=== PATIENT | female | born 1960 | race Caucasian/White ===

== ENCOUNTER 2019-06-25 10:36 | Outpatient (CLI) | payer OTHER, SELFPAY ==
--- NOTE | ~2019-06-25 | XR_ITS ---
EXAMINATION: XR shoulder RT min 2V DATE: 06/25/2019 10:57 INDICATION: Right shoulder pain. TECHNIQUE: 4 views of right shoulder were obtained. COMPARISON: None. FINDINGS: Bone alignment is normal. No fracture. There is mild osteoarthritis of glenohumeral joint a nd acromioclavicular joint characterized by tiny marginal osteophytes. IMPRESSION: 1. Mild polyarticular osteoarthritis. Reviewed, dictated and finalized at location A.
[2019-06-25 10:50] LABS: Basophils Absolute Auto 0.09 K/mm3 (0.00-0.10); Basophils Percent Auto 1.1 % (0.0-1.0); Eosinophils Absolute Auto 0.33 K/mm3 (0.02-0.50); Eosinophils Percent Auto 3.9 % (1.0-6.0); Hematocrit 43.2 % (35.0-49.0); Hemoglobin 14.2 g/dL (12.0-15.0); Immature Granulocyte Absolute 0.03 K/mm3 (0.00-0.00); Immature Granulocyte Percent A 0.4 % (0.0-0.0); Lymphocytes Absolute Auto 2.29 K/mm3 (1.10-4.50); Mean Corpuscular HGB Conc 32.9 g/dL (32.0-36.0); Mean Corpuscular Hemoglobin 30.3 pg (27.0-31.0); Mean Corpuscular Volume 92.1 fL (78.0-102.0); Mean Platelet Volume 8.8 fl (9.2-11.8); Monocytes Percent Auto 7.1 % (2.0-11.0); Neutrophils Absolute Auto 5.2 K/mm3 (1.7-7.2); Neutrophils Percent Auto 60.5 % (50.0-70.0); Platelet Count Result 339 K/mm3 (150-420); Red Blood Count 4.69 M/mm3 (4.20-5.40); Red Cell Distribution Width 13.2 % (11.6-14.4); White Blood Count 8.5 K/mm3 (4.8-10.8)
[2019-06-25 11:00] LABS: Add Urine Microscopic? NO; Appearance Urine Clear (Clear); Bilirubin Urine Negative (Negative); Blood Urine Negative (Negative); Color Urine Yellow (Yellow); Glucose Urine UA Negative (Negative); Ketones Urine Negative (Negative); Leukocyte Esterase Ur Negative (Negative); Nitrate Urine Negative (Negative); Protein Urine Negative (Negative); Urobilinogen Urine 0.2 mg/dL (0.2-1.0); pH Urine 6.5 (5.0-8.0)
[2019-06-25 11:33] LABS: Alanine Aminotransferase 39 U/L (14-59); Albumin Level 3.8 g/dL (3.4-5.0); Alkaline Phosphatase 122 U/L (46-116); Aspartate Amino Transferase 28 U/L (15-37); Bilirubin,Total 0.1 mg/dL (0.00-1.00); Blood Urea Nitrogen 22 mg/dL (7-18); Calcium 8.8 mg/dL (8.5-10.1); Carbon Dioxide 29 mmol/L (21-32); Chloride 105 mmol/L (98-108); Cholesterol 235 mg/dL (0-200); Estimated Glomerular Filt Rate > 60; Glucose 119 mg/dL (70-99); HDL Direct 59 mg/dL (40-60); LDL Cholesterol Calculated 124 mg/dL (<130); Osmolality Calculated 298 mOsm/kg (285-295); Sodium 142 mmol/L (136-145); Thyroid Stimulating Hormone 1.82 uIU/mL (0.36-3.74); Total Protein 6.9 g/dL (6.4-8.2); Triglycerides 258 mg/dL (0-150)
[2019-06-26 13:38] LABS: Hemoglobin A1C 6.3 % (<5.7)
== END 2019-06-25 10:37 | disposition home or self-care (01) ==
LOC: CHSIMG 10:40
PROVIDERS: PCP Internal Medicine; Visit Provider Internal Medicine
DX: Z00.00 Encounter for general adult medical examination without abnormal findings (principal); M25.511 Pain in right shoulder; R73.9 Hyperglycemia, unspecified
CPT/HCPCS: 36415; 73030; 80053; 80061; 81003; 83036; 84443; 85025

== ENCOUNTER 2019-11-03 20:03 | Emergency (ER) | payer OTHER, SELFPAY ==
[2019-11-03 20:25] VITALS: BP 169/90; PULSE 92; RESP 18; TEMP 37; O2SAT 97
--- NOTE | 2019-11-03 20:48 | ED_ITS ---
HPI - Skin/Abscess/Foreign Bdy General Chief complaint: Skin/Abscess/Foreign Body Stated complaint: bug bite, rash Source: patient Mode of arrival: ambulatory Limitations: no limitations History of Present Illness HPI narrative: Awoke yesterday AM with a bite on her left forearm which has been getting more red and tender. Denies itching/pain. Related Data Home Medications Medication Instructions Recorded Confirmed hydrochlorothiazide 12.5 mg PO DAILY 11/03/19 11/03/19 lisinopril 20 mg PO HS 11/03/19 11/03/19 simvastatin 10 mg PO DAILY 11/03/19 11/03/19 Allergies Allergy/AdvReac Type Severity Reaction Status Date / Time Penicillins Allergy Intermediate Verified 04/08/11 15:13 trimethobenzamide [Tigan] Allergy Intermediate Verified 04/08/11 15:14 varenicline [Chantix] Allergy Intermediate Verified 12/07/11 14:13 NSAIDS (Non-Steroidal Allergy Mild abdominal Verified 04/08/11 15:14 Anti-Inflamma pain PENICILLIN Allergy Uncoded 12/21/12 20:22 TRIMETHOBENZAMIDE HCL Allergy Uncoded 12/21/12 20:22 Review of Systems Constitutional: Constitutional: Denies chills and Denies fever(s) [facility] Past Medical History Medical History (Updated 11/05/19 @ 15:43 by Hamlet Winter MD) Hyperlipidemia Hypertension Family History Family History (Updated 03/31/14 @ 00:00 by CONVUSER A) Father Family history of type 2 diabetes mellitus Hypertension Mother Hypertension Social History Social History Smoking status: Current every day smoker Gender identity (if verbalized by the patient): Female Exam Const: General: cooperative Nutritional Appearance: average body habitus GI: Abdomen image: 1. 3 cm area of erythema and tenderness. No induration. No fluctuation. Skin: Lesions: other (see abd. diagram. No red steaking.) Course Vital Signs Vital signs: Vital Signs Temperature 37.0 C 11/03/19 20:25 Pulse Rate 92 11/03/19 20:25 Respiratory Rate 18 11/03/19 20:25 Blood Pressure 169/90 H 11/03/19 20:25 Pulse Oximetry 97 11/03/19 20:25 Temperature 36.9 C 11/03/19 20:54 Pulse Rate 88 11/03/19 20:54 Respiratory Rate 16 11/03/19 20:54 Blood Pressure 180/78 H 11/03/19 20:54 Pulse Oximetry 98 11/03/19 20:54 Discharge Plan Discharge Clinical Impression: Cellulitis Patient Disposition: Home, Self-Care Condition: Stable Instructions: Antibiotic Form, Cellulitis (ED) Additional Instructions: See Dr. Caballero in 2 days for recheck. Prescriptions: New sulfamethoxazole-trimethoprim [Bactrim DS] 800-160 mg tablet 1 tablet PO Q12H Qty: 10 RF: 0 No Action lisinopril 20 mg tablet 20 mg PO HS RF: 0 simvastatin 10 mg tablet 10 mg PO DAILY RF: 0 hydrochlorothiazide 12.5 mg tablet 12.5 mg PO DAILY RF: 0 Follow-up/Referrals: Sumit Caballero MD [Primary Care Provider] - Time of Disposition: 20:49 Discharge Date/Time: 11/03/19 20:56
[2019-11-03 20:54] VITALS: BP 180/78; PULSE 88; RESP 16; TEMP 36.9; O2SAT 98
== END 2019-11-03 20:56 | disposition home or self-care (01) ==
PROVIDERS: Emergency Provider Family Medicine; PCP Internal Medicine
DX: L03.114 Cellulitis of left upper limb (principal)
CPT/HCPCS: 99283; A9270

== ENCOUNTER 2020-02-17 09:23 | Outpatient (CLI) | payer OTHER, SELFPAY ==
[2020-02-17 10:41] LABS: SARS-CoV-2 Ag Negative (Negative)
== END 2020-02-17 09:24 | disposition home or self-care (01) ==
LOC: CHSLAB 09:24
PROVIDERS: PCP Internal Medicine; Visit Provider Internal Medicine
DX: Z20.828 Contact with and (suspected) exposure to other viral communicable diseases (principal)
CPT/HCPCS: 87426

== ENCOUNTER 2020-04-16 09:55 | Outpatient (CLI) | payer OTHER, SELFPAY ==
[2020-04-17 19:17] LABS: SARS-CoV-2 RNA PCR Negative
== END 2020-04-16 09:56 | disposition home or self-care (01) ==
LOC: CHSLAB 09:57
PROVIDERS: PCP Internal Medicine; Visit Provider Internal Medicine
DX: Z20.822 Contact with and (suspected) exposure to COVID-19 (principal)
CPT/HCPCS: C9803; U0003; U0005

== ENCOUNTER 2020-05-22 15:36 | Outpatient (CLI) | payer OTHER, SELFPAY ==
[2020-05-22 16:01] LABS: Basophils Absolute Auto 0.06 K/mm3 (0.00-0.10); Basophils Percent Auto 0.9 % (0.0-1.0); Eosinophils Absolute Auto 0.42 K/mm3 (0.02-0.50); Eosinophils Percent Auto 6.3 % (1.0-6.0); Hematocrit 43.1 % (35.0-49.0); Hemoglobin 13.8 g/dL (12.0-15.0); Immature Granulocyte Absolute 0.02 K/mm3 (0.00-0.00); Immature Granulocyte Percent A 0.3 % (0.0-0.0); Lymphocytes Percent Auto 26.8 % (18.0-42.0); Mean Corpuscular Hemoglobin 29.1 pg (27.0-31.0); Mean Corpuscular Volume 90.9 fL (78.0-102.0); Mean Platelet Volume 9.1 fl (9.2-11.8); Monocytes Absolute Auto 0.47 K/mm3 (0.10-0.90); Neutrophils Absolute Auto 3.9 K/mm3 (1.7-7.2); Neutrophils Percent Auto 58.7 % (50.0-70.0); Platelet Count Result 316 K/mm3 (150-420); Red Blood Count 4.74 M/mm3 (4.20-5.40); Red Cell Distribution Width 13.2 % (11.6-14.4); White Blood Count 6.7 K/mm3 (4.8-10.8)
[2020-05-22 16:21] LABS: Add Urine Microscopic? NO; Appearance Urine Clear (Clear); Bilirubin Urine Negative (Negative); Blood Urine Negative (Negative); Color Urine Yellow (Yellow); Glucose Urine UA Negative (Negative); Ketones Urine Negative (Negative); Leukocyte Esterase Ur Negative LEU/UL (Negative); Nitrate Urine Negative (Negative); Protein Urine Negative (Negative); Specific Grav Ur >= 1.030 (1.010-1.020); Urobilinogen Urine 0.2 mg/dL (0.2-1.0)
[2020-05-22 16:24] LABS: Prothrombin Time 10.7 Seconds (9.50-12.10)
[2020-05-22 16:29] LABS: Alanine Aminotransferase 34 U/L (14-59); Albumin Level 3.8 g/dL (3.4-5.0); Alkaline Phosphatase 126 U/L (46-116); Anion Gap 8 mmol/L (8-16); Aspartate Amino Transferase 21 U/L (15-37); Bilirubin,Total 0.3 mg/dL (0.00-1.00); Blood Urea Nitrogen 20 mg/dL (7-18); CRP 0.7 mg/dL (0.0-0.9); Calcium 8.5 mg/dL (8.5-10.1); Carbon Dioxide 29 mmol/L (21-32); Chloride 103 mmol/L (98-108); Cholesterol 223 mg/dL (0-200); Estimated Glomerular Filt Rate 57; Free T4 Free Thyroxine 0.89 ng/dL (0.76-1.46); Glucose 104 mg/dL (70-99); HDL Direct 67 mg/dL (40-60); LDL Cholesterol Calculated 123 mg/dL (<130); Osmolality Calculated 292 mOsm/kg (285-295); Potassium 4.2 mmol/L (3.5-5.1); Sodium 140 mmol/L (136-145); Thyroid Stimulating Hormone 0.73 uIU/mL (0.36-3.74); Total Protein 7.4 g/dL (6.4-8.2); Triglycerides 163 mg/dL (0-150)
[2020-05-22 16:33] LABS: Amphetamine Screen Urine Positive (Negative); Barbiturate Screen Urine Negative (Negative); Benzodiazepines Screen Urine Negative (Negative); Cannabinoid Screen Urine Negative (Negative); Cocaine Screen Urine Negative (Negative); Methadone Screen Urine Negative (Negative); Opiate Screen Urine Positive (Negative); Phencyclidine Screen Urine Negative (Negative)
[2020-05-22 16:52] LABS: Free T3 2.66 pg/mL (2.18-3.98)
[2020-05-22 16:54] LABS: HIV 1 P24 AG Negative (Negative); HIV 1/2 AB Negative (Negative)
== END 2020-05-22 15:37 | disposition home or self-care (01) ==
LOC: CHSLAB 15:39
PROVIDERS: PCP Internal Medicine; Visit Provider Internal Medicine
DX: L98.9 Disorder of the skin and subcutaneous tissue, unspecified (principal); Z20.2 Contact with and (suspected) exposure to infections with a predominantly sexual mode of transmission; T75.89XA Other specified effects of external causes, initial encounter
CPT/HCPCS: 36415; 80053; 80061; 80307; 81003; 84439; 84443; 84481; 85025; 85610; 86140; 86703; 87491; 87591

== ENCOUNTER 2020-09-08 15:35 | Outpatient (CLI) | payer OTHER, SELFPAY ==
[2020-09-08 16:51] LABS: SARS-CoV-2 RNA PCR Negative (Negative)
== END 2020-09-08 15:36 | disposition home or self-care (01) ==
LOC: CHSLAB 15:37
PROVIDERS: PCP Internal Medicine; Visit Provider Nurse Practitioner Family
DX: J06.9 Acute upper respiratory infection, unspecified (principal); Z20.822 Contact with and (suspected) exposure to COVID-19
CPT/HCPCS: C9803; U0003; U0005

== ENCOUNTER → 2020-11-19 19:28 | Emergency (ER) | payer OTHER, SELFPAY | END | disposition left against medical advice (07) | PROVIDERS: Emergency Provider Emergency Medicine; PCP Internal Medicine | DX: Z53.8 Procedure and treatment not carried out for other reasons (principal) | CPT/HCPCS: 99199 ==

== ENCOUNTER 2021-03-04 13:51 | Emergency (ER) | payer OTHER, SELFPAY ==
[2021-03-04 14:00] VITALS: BP 162/98; PULSE 93; RESP 20; TEMP 36.4; O2SAT 99
--- NOTE | 2021-03-04 14:42 | ED.GENADULT ---
HPI - General Adult General Chief complaint: Unspecified Stated complaint: groin and leg pain Source: patient Mode of arrival: ambulatory Limitations: no limitations History of Present Illness HPI narrative: this is a 61-year-old female that presents with abdominal pain right lower quadrant has been going on for the last couple of days with no fever chills no nausea vomiting no dysuria no hematuria no flank pain no radiation of her pain with no chest pain no shortness of breath. She rates the pain at about an 8/10 has not tried anything [id number] for pain relief. Onset (ago): day(s) Location: abdomen Radiation: non-radiation Severity: moderate Quality: aching Pain Consistency: constant Relieving factors: none Exacerbating factors: none Associated symptoms: denies other symptoms Related Data Home Medications Medication Instructions Recorded Confirmed hydrochlorothiazide 12.5 mg PO DAILY 11/03/19 03/04/21 lisinopril 20 mg PO HS 11/03/19 03/04/21 simvastatin 10 mg PO DAILY 11/03/19 03/04/21 Allergies Allergy/AdvReac Type Severity Reaction Status Date / Time Penicillins Allergy Intermediate Verified 04/08/11 15:13 trimethobenzamide [Tigan] Allergy Intermediate Verified 04/08/11 15:14 varenicline [Chantix] Allergy Intermediate Verified 12/07/11 14:13 NSAIDS (Non-Steroidal Allergy Mild abdominal Verified 04/08/11 15:14 Anti-Inflamma pain PENICILLIN Allergy Uncoded 12/21/12 20:22 TRIMETHOBENZAMIDE HCL Allergy Uncoded 12/21/12 20:22 Review of Systems Review of Systems: All systems reviewed & are unremarkable except as noted in HPI and below PMFSH Past Medical History Medical History Hyperlipidemia Hypertension Family History Family History Father Family history of type 2 diabetes mellitus Hypertension Mother Hypertension Social History Social History Smoking status: Current every day smoker Gender identity (if verbalized by the patient): Female Exam Const: General: cooperative, healthy appearing, comfortable, no acute distress and well developed HENMT: Head: normal to inspection Ears: hearing grossly normal bilaterally General nose exam: Normal external nose present Face and sinus: normal facial exam Mouth: Yes Normal oral and palatal mucosa present Teeth and gingiva: dentition normal Eyes: General: appearance normal, both eyes and all related structures Sclera: sclerae normal Pupils: Equal, round and reactive pupils present Neck: Neck: normal visual inspection, full ROM, no lymphadenopathy and no meningeal signs Resp: Effort & Inspection: normal respiratory effort and able to speak in complete sentences Cardio: Jugular venous distension: no JVD Palpation: normal PMI Rate: regular rate Rhythm: regular rhythm GI: Inspection: normal to inspection GI Palp: Yes abdominal tenderness Urinary Catheter: Urinary Catheter: patent and draining and urine clear Back/Spine/Pelvis: Back: no CVA tenderness Skin: General skin exam: normal color and no rashes or lesions noted Neuro: General: oriented to person, oriented to place and oriented to time Extrem: Right lower extremity: normal to inspection, full ROM and normal capillary refill Psych: Appearance: grossly normal and well kempt Course Course Emergency Course: Patient declined CT scan and would prefer to go home and follow up with her primary care physician was offered IM pain medication which she declined, and patient stated that she is not allergic to NSAIDs and will give the patient a dose of Toradol 10mg. Vital Signs Vital signs: Vital Signs Temperature 36.4 C 03/04/21 14:00 Pulse Rate 93 03/04/21 14:00 Respiratory Rate 20 03/04/21 14:00 Blood Pressure 162/98 H 03/04/21 14:00 Pulse Oximetry 99 03/04/21 14:00 Temperature 36.4 C
[2021-03-04 14:48] LABS: Add Urine Microscopic? NO; Appearance Urine Clear (Clear); Bilirubin Urine Negative (Negative); Blood Urine Negative (Negative); Color Urine Yellow (Yellow); Glucose Urine UA Negative (Negative); Ketones Urine Negative (Negative); Leukocyte Esterase Ur Negative (Negative); Nitrate Urine Negative (Negative); Protein Urine Negative (Negative); Specific Grav Ur >= 1.030 (1.010-1.020); Urobilinogen Urine 0.2 mg/dL (0.2-1.0); pH Urine 5.5 (5.0-8.0)
[2021-03-04 14:49] LABS: Basophils Absolute Auto 0.09 K/mm3 (0.00-0.10); Basophils Percent Auto 1.1 % (0.0-1.0); Eosinophils Absolute Auto 0.38 K/mm3 (0.02-0.50); Eosinophils Percent Auto 4.7 % (1.0-6.0); Hematocrit 45.8 % (35.0-49.0); Hemoglobin 15.1 g/dL (12.0-15.0); Immature Granulocyte Absolute 0.01 K/mm3 (0.00-0.00); Immature Granulocyte Percent A 0.1 % (0.0-0.0); Lymphocytes Absolute Auto 2.02 K/mm3 (1.10-4.50); Lymphocytes Percent Auto 25.2 % (18.0-42.0); Mean Corpuscular Volume 87.9 fL (78.0-102.0); Mean Platelet Volume 9.1 fl (9.2-11.8); Monocytes Absolute Auto 0.45 K/mm3 (0.10-0.90); Monocytes Percent Auto 5.6 % (2.0-11.0); Neutrophils Absolute Auto 5.1 K/mm3 (1.7-7.2); Neutrophils Percent Auto 63.3 % (50.0-70.0); Platelet Count Result 352 K/mm3 (150-420); Red Blood Count 5.21 M/mm3 (4.20-5.40); Red Cell Distribution Width 13.2 % (11.6-14.4)
[2021-03-04 15:00] LABS: Alanine Aminotransferase 44 U/L (14-59); Albumin Level 3.7 g/dL (3.4-5.0); Alkaline Phosphatase 145 U/L (46-116); Anion Gap 11 mmol/L (8-16); Aspartate Amino Transferase 28 U/L (15-37); Bilirubin,Total 0.2 mg/dL (0.00-1.00); Blood Urea Nitrogen 20 mg/dL (7-18); Carbon Dioxide 27 mmol/L (21-32); Chloride 102 mmol/L (98-108); Estimated CRCL calculation 47 ml/min; Estimated Glomerular Filt Rate 53; Glucose 110 mg/dL (70-99); Osmolality Calculated 293 mOsm/kg (285-295); Potassium 4.1 mmol/L (3.5-5.1); Sodium 140 mmol/L (136-145); Total Protein 7.5 g/dL (6.4-8.2)
[2021-03-04 15:05] LABS: Lactic Acid Reflex 0.8 mmol/L (0.4-2.0)
--- NOTE | 2021-03-04 15:12 | PC.NURSE ---
pt refused iv for ct scan, dr ambrosio in with pt. pt continues to refuse. pt signed ama
--- NOTE | 2021-03-04 15:13 | PC.NURSE ---
pt refusing iv for ct scan, dr ambrosio in with pt. pt continues to refuse, signed out ama
== END 2021-03-04 15:15 | disposition left against medical advice (07) ==
PROVIDERS: Emergency Provider Emergency Medicine; PCP Internal Medicine
DX: R10.31 Right lower quadrant pain (principal)
CPT/HCPCS: 36415; 80053; 81003; 83605; 85025; 99282; 99283

== ENCOUNTER 2021-07-30 14:35 | Outpatient (CLI) | payer OTHER, SELFPAY ==
--- NOTE | ~2021-07-30 | XR_ITS ---
XR ankle RT min 3V DATE: 07/30/2021 14:53 INDICATION: Right ankle pain and swelling after fall 3 days ago TECHNIQUE: 4 views COMPARISON: None FINDINGS: There is generalized soft tissue swelling. No fracture or dislocation of the ankle or disru ption of the ankle mortise is detected. IMPRESSION: Soft tissue swelling; no fracture or dislocation Reviewed, dictated and finalized at location B.
== END 2021-07-30 14:36 | disposition home or self-care (01) ==
LOC: CHSIMG 14:39
PROVIDERS: PCP Internal Medicine; Visit Provider Nurse Practitioner Family
DX: M25.571 Pain in right ankle and joints of right foot (principal); M25.471 Effusion, right ankle
CPT/HCPCS: 73610

== ENCOUNTER 2021-08-13 15:24 | Outpatient (CLI) | payer OTHER, SELFPAY ==
[2021-08-13 15:51] LABS: Basophils Absolute Auto 0.08 K/mm3 (0.00-0.10); Basophils Percent Auto 1.2 % (0.0-1.0); Eosinophils Percent Auto 7.5 % (1.0-6.0); Hematocrit 44.9 % (35.0-49.0); Hemoglobin 14.6 g/dL (12.0-15.0); Immature Granulocyte Absolute 0.02 K/mm3 (0.00-0.00); Immature Granulocyte Percent A 0.3 % (0.0-0.0); Lymphocytes Absolute Auto 1.77 K/mm3 (1.10-4.50); Lymphocytes Percent Auto 26.6 % (18.0-42.0); Mean Corpuscular HGB Conc 32.5 g/dL (32.0-36.0); Mean Corpuscular Hemoglobin 29.6 pg (27.0-31.0); Mean Corpuscular Volume 90.9 fL (78.0-102.0); Mean Platelet Volume 8.9 fl (9.2-11.8); Monocytes Absolute Auto 0.39 K/mm3 (0.10-0.90); Monocytes Percent Auto 5.9 % (2.0-11.0); Neutrophils Absolute Auto 3.9 K/mm3 (1.7-7.2); Neutrophils Percent Auto 58.5 % (50.0-70.0); Platelet Count Result 316 K/mm3 (150-420); Red Blood Count 4.94 M/mm3 (4.20-5.40); Red Cell Distribution Width 13.2 % (11.6-14.4); White Blood Count 6.7 K/mm3 (4.8-10.8)
[2021-08-13 16:49] LABS: Alanine Aminotransferase 36 U/L (14-59); Albumin Level 3.7 g/dL (3.4-5.0); Alkaline Phosphatase 152 U/L (46-116); Anion Gap 8 mmol/L (8-16); Aspartate Amino Transferase 26 U/L (15-37); Bilirubin,Total 0.1 mg/dL (0.00-1.00); Blood Urea Nitrogen 19 mg/dL (7-18); Calcium 8.9 mg/dL (8.5-10.1); Carbon Dioxide 27 mmol/L (21-32); Chloride 102 mmol/L (98-108); Cholesterol 233 mg/dL (0-200); Estimated Glomerular Filt Rate > 60; Free T4 Free Thyroxine 0.89 ng/dL (0.76-1.46); Glucose 108 mg/dL (70-99); HDL Direct 62 mg/dL (40-60); LDL Cholesterol Calculated 146 mg/dL (<130); Osmolality Calculated 287 mOsm/kg (285-295); Potassium 3.9 mmol/L (3.5-5.1); Sodium 137 mmol/L (136-145); Thyroid Stimulating Hormone 1.04 uIU/mL (0.36-3.74); Triglycerides 125 mg/dL (0-150)
[2021-08-13 16:53] LABS: Add Urine Microscopic? NO; Appearance Urine Clear (Clear); Bilirubin Urine Negative (Negative); Blood Urine Negative (Negative); Color Urine Light Yellow (Yellow); Glucose Urine UA Negative (Negative); Ketones Urine Negative (Negative); Leukocyte Esterase Ur Negative LEU/UL (Negative); Nitrate Urine Negative (Negative); Protein Urine Negative (Negative); Specific Grav Ur 1.025 (1.010-1.020); Urobilinogen Urine 0.2 mg/dL (0.2-1.0)
[2021-08-13 17:03] LABS: Amphetamine Screen Urine Positive (Negative); Barbiturate Screen Urine Negative (Negative); Benzodiazepines Screen Urine Negative (Negative); Cannabinoid Screen Urine Negative (Negative); Cocaine Screen Urine Negative (Negative); Methadone Screen Urine Negative (Negative); Opiate Screen Urine Positive (Negative); Phencyclidine Screen Urine Negative (Negative)
[2021-08-13 17:23] LABS: HIV 1 P24 AG Negative (Negative); HIV 1/2 AB Negative (Negative)
[2021-08-17 18:09] LABS: Hemoglobin A1C 6.2 % (<5.7)
== END 2021-08-13 15:25 | disposition home or self-care (01) ==
LOC: CHSLAB 15:26
PROVIDERS: Nurse Practitioner Family; PCP Internal Medicine; Visit Provider Nurse Practitioner Family
DX: L98.499 Non-pressure chronic ulcer of skin of other sites with unspecified severity (principal); F19.10 Other psychoactive substance abuse, uncomplicated; R73.9 Hyperglycemia, unspecified; I10 Essential (primary) hypertension; E78.5 Hyperlipidemia, unspecified; R73.03 Prediabetes; M25.571 Pain in right ankle and joints of right foot; R21 Rash and other nonspecific skin eruption
CPT/HCPCS: 36415; 80053; 80061; 80307; 81003; 83036; 84439; 84443; 85025; 86703; 87070; 87147; 87186; 87205

== ENCOUNTER 2021-09-22 18:17 | Outpatient (CLI) | payer OTHER, SELFPAY ==
--- NOTE | ~2021-09-22 | XR_ITS ---
EXAMINATION: XR skull min 4V INDICATION: Possible foreign body TECHNIQUE: Four views of the skull are obtained. COMPARISON: 12/11/2011 FINDINGS: Plate and screws are again noted in the right temporal bone. The patient is wearing and nos e ring. Otherwise, no radiopaque foreign body is identified. The paranasal sinuses appear clear. IMPRESSION: 1. Plate and screws in the right temporal bone and nose ring, otherwise no radiopaque foreign body id entified. Reviewed, dictated and finalized at location B. IMPRESSION: 1. Plate and screws in the right temporal bone and nose ring, otherwise no radi opaque foreign body identified.
== END 2021-09-22 18:18 | disposition home or self-care (01) ==
LOC: CHSIMG 18:19
PROVIDERS: PCP Internal Medicine; Visit Provider Nurse Practitioner Family
DX: M79.5 Residual foreign body in soft tissue (principal)
CPT/HCPCS: 70260

== ENCOUNTER 2022-03-06 19:37 | Emergency (ER) | payer OTHER, SELFPAY ==
--- NOTE | ~2022-03-06 | CT_ITS ---
EXAMINATION: CT cervical spine wo con DATE: 03/06/2022 20:51 INDICATION: Posterior neck pain TECHNIQUE: Computed tomography (CT) of the cervical spine was performed without intravenous contrast. Automated exposure control and iterative reconstruction technique were employed. The dose-length pro duct was 605.33 mGy-cm. COMPARISON: None FINDINGS: Alignment is normal. Vertebral body heights are normal. No fracture. Mild disc height loss at C5-C6. Cervical soft tissues are unremarkable. Moderate emphysema in the visualized portions of the bilatera l upper lobes. The following disc levels are specifically discussed: C2-C3: There is mild bilateral uncovertebral joint osteoarthritis. There is old right and severe left facet joint osteoarthritis. There is no neural foraminal stenosis. There is no central canal stenosi s. C3-C4: There is mild bilateral uncovertebral joint osteoarthritis. There is mild left and severe righ t facet joint osteoarthritis. There is mild right neural foraminal stenosis. There is no central aman l stenosis. C4-C5: There is mild bilateral uncovertebral joint osteoarthritis. There is mild left and severe righ t facet joint osteoarthritis. There is mild to moderate right neural foraminal stenosis. There is no central canal stenosis. C5-C6: There is moderate left and moderate to severe right uncovertebral joint osteoarthritis. There is mild right and severe left facet joint osteoarthritis. There is moderate left and moderate right n eural foraminal stenosis. There is no central canal stenosis. C6-C7: There is mild bilateral uncovertebral joint osteoarthritis. There is mild right and moderate l eft facet joint osteoarthritis. There is no neural foraminal stenosis. There is no central canal sten osis. C7-T1: The disc does not extend beyond the endplate margin. There is minimal bilateral uncovertebral joint osteoarthritis. There is mild right and severe left facet joint osteoarthritis. There is no pallavi ral foraminal stenosis. There is no central canal stenosis. IMPRESSION: 1. Mild cervical spondylosis. No acute osseous abnormality. 2. Moderate emphysema. Reviewed, dictated and finalized at location A. [employer]
--- NOTE | ~2022-03-06 | CT_ITS ---
EXAMINATION: CT brain wo con DATE: 03/06/2022 20:50 INDICATION: Nontraumatic headache and posterior neck pain TECHNIQUE: Computed tomography (CT) of the head was performed without intravenous contrast. Sagittal and coronal reconstructions were performed. The mA was adjusted according to patient size. Iterative reconstruction technique was employed. The dose-length product was 605.33 mGy-cm. COMPARISON: head CT dated 08/04/2004 FINDINGS: No acute intracranial hemorrhage, acute infarction or abnormal extra axial fluid collection. Ventricl es are normal and symmetric. No mass/mass effect. Mild mucosal thickening in the left maxillary sinus . The orbits, paranasal sinuses and mastoid air cells are normal. Again seen is a metallic plate over lying appears be an old bassem hole in the right parietal region. IMPRESSION: 1. Normal aging brain. No acute intracranial process. Reviewed, dictated and finalized at location A. [employer]
[2022-03-06 19:45] VITALS: BP 147/79; PULSE 95; RESP 18; TEMP 36.6; O2SAT 96
--- NOTE | 2022-03-06 20:15 | ED.NECK ---
HPI - Neck Pain/Injury General Chief Complaint: Neck Pain/Injury Stated Complaint: neck pain Time Seen by Provider: 03/06/22 20:03 Source: patient Mode of arrival: ambulatory Limitations: no limitations History of Present Illness HPI Narrative: PATIENT COMPLAINED OF RIGHT NECK PAIN THAT STARTED MONDAY MORNING WHEN SHE WOKE UP 3 DAYS AGO. ALSO ASSOCIATED WITH STIFFNESS HURTS TO MOVE HER NECK BACK AND FORTH FROM SIDE TO SIDE. DENIES ANY NEW ACTIVITY OR INJURIES. DENY NUMBNESS OR WEAKNESS FEVER OR SHORTNESS OF BREATH. HURTS WHEN SHE IS TRYING TO DRIVE OR EVEN MOVE AROUND DOING USUAL ACTIVITIES. SHE TOOK TYLENOL AND ALEVE AND THAT HELPED A LITTLE BIT. SHE SAID IT TOOK THE EDGE OFF. YESTERDAY SHE SPENT MOST THE DAY IN BED. 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 AND HAD INJECTIONS IN HER BACK. Severity scale (1-10): 10 Quality: sharp Duration: constant Relieving factors: other ( TYLENOL AND ALEVE) Exacerbating factors: movement of neck Associated symptoms: headache Treatments prior to arrival: acetaminophen and naproxen Related Data Home Medications Medication Instructions Recorded Confirmed hydrochlorothiazide 12.5 mg tablet 12.5 mg PO DAILY 11/03/19 03/06/22 lisinopril 20 mg tablet 20 mg PO HS 11/03/19 03/06/22 simvastatin 10 mg tablet 10 mg PO DAILY 11/03/19 03/06/22 Allergies Allergy/AdvReac Type Severity Reaction Status Date / Time Penicillins Allergy Intermediate Hives Verified 03/06/22 20:29 trimethobenzamide [Tigan] Allergy Intermediate Vomiting Verified 03/06/22 20:29 varenicline [Chantix] Allergy Intermediate Vomiting Verified 03/06/22 20:29 NSAIDS (Non-Steroidal Allergy Mild abdominal Verified 04/08/11 15:14 Anti-Inflamma pain PENICILLIN Allergy Hives Uncoded 03/06/22 20:29 TRIMETHOBENZAMIDE HCL Allergy Unknown Uncoded 03/06/22 20:29 Review of Systems Review of Systems: All systems reviewed & are unremarkable except as noted in HPI and below Constitutional: Constitutional: Reports as per HPI and Reports no additional constitutional complaints Eyes: Eyes: Reports no additional eye complaints ENT: Reports system reviewed and no additional complaints, except as documented and Denies sore throat Cardiovascular: Cardiovascular: Reports no additional cardiovascular complaints Respiratory: Respiratory: Reports cough ( CHRONIC SMOKER'S COUGH NO CHANGES.) and Denies dyspnea Gastrointestinal: Gastrointestinal: Reports no additional gastrointestinal complaints, Denies abdominal pain, Denies constipation, Denies diarrhea and Denies vomiting Genitourinary: Genitourinary: Reports no additional female genitourinary complaints Musculoskeletal: Musculoskeletal: Reports no additional musculoskeletal complaints Integumentary/Breasts: Skin/Breast: Reports system reviewed and no additional complaints, except as docu Neurologic: Reports system reviewed and no additional complaints, except as documented, Denies confusion, Denies syncope, Reports headache(s), Denies focal weakness, Denies numbness and Denies weakness Psychiatric: Psychiatric: Reports no additional psychiatric complaints PMFSH Past Medical History Medical History Hyperlipidemia Hypertension Family History Family History Father Family history of type 2 diabetes mellitus Hypertension Mother Hypertension Social History Social History Smoking status: Current every day smoker Gender identity (if verbalized by the patient): Female Exam Narrative: WHITE FEMALE SHE APPEARS IN NO APPARENT DISTRESS. IS NORMOCEPHALIC ATRAUMATIC EARS TMS ARE NORMAL. EYES PUPILS ARE EQUAL ROUND REACT LIGHT EXTRAOCULAR MOVEMENTS ARE INTACT OROPHARYNX IS CLEAR WITH MOIST MUCOUS MEMBRANES. NECK IS SHE HAS RIGHT SIDED POSTERIOR TENDERNESS NO MIDLI
[2022-03-06] MEDS: KETOROLAC 30 MG/ML VIAL (*BKC) IM (21:22)
== END 2022-03-06 22:29 | disposition home or self-care (01) ==
PROVIDERS: Emergency Provider Emergency Medicine; PCP Internal Medicine
DX: M47.812 Spondylosis without myelopathy or radiculopathy, cervical region (principal); E78.5 Hyperlipidemia, unspecified; I10 Essential (primary) hypertension; F17.200 Nicotine dependence, unspecified, uncomplicated
CPT/HCPCS: 70450; 72125; 96372; 99284; J1885

== ENCOUNTER 2022-06-29 12:38 | Outpatient (CLI) | payer OTHER, SELFPAY ==
--- NOTE | ~2022-06-29 | CT_ITS ---
EXAMINATION: CT thoracic lumbar wo con DATE: 06/29/2022 13:04 INDICATION: Chronic low back pain. TECHNIQUE: Computed tomography (CT) of the thoracic and lumbar spine was performed without intravenou s contrast. Automated exposure control and iterative reconstruction technique were employed. The dose -length product was 1282.66 mGy-cm. COMPARISON: Chest CT 08/23/2018 FINDINGS: CT THORACIC SPINE: There is a moderate-sized sliding hiatal hernia. There is mild emphysema. There is 4 degrees dextrocurvature of thoracic spine. There is mild chronic anterior wedging of T6, T7, T11, and T12 vertebral bodies. There is mildly decreased disc height at T5-T6 and T6-T7. There is moderate to severely decreased disc height from T7-T8 through T11-T12 with vacuum disc phenomenon. There is m ultilevel mild to moderate facet joint osteoarthritis. On the right, there is mild neural foraminal s tenosis at T10-T11. On the left, there is mild neural foraminal stenosis at T10-T11 and T11-T12. No c entral canal stenosis. CT LUMBAR SPINE: There is 3 degrees levocurvature of lumbar spine. Vertebral body heights and interve rtebral disc heights are normal. The following disc levels are specifically discussed: L1-L2: The disc does not extend beyond the endplate margin. There is mild bilateral facet joint osteo arthritis. There is no neural foraminal stenosis. There is no central canal stenosis. L2-L3: The disc is bulging. There is mild bilateral facet joint osteoarthritis. There is mild right n eural foraminal stenosis. There is no central canal stenosis. L3-L4: The disc is bulging. There is moderate right and mild left facet joint osteoarthritis. There i s mild bilateral neural foraminal stenosis. There is mild central canal stenosis. L4-L5: The disc is bulging. There is mild bilateral facet joint osteoarthritis. There is mild bilater al neural foraminal stenosis. There is mild central canal stenosis. L5-S1: The disc is bulging. There is mild bilateral facet joint osteoarthritis. There is mild bilater al neural foraminal stenosis. There is mild central canal stenosis. IMPRESSION: 1. Moderate thoracic spondylosis and mild lumbar spondylosis. Reviewed, dictated and finalized at location A.
== END 2022-06-29 12:39 | disposition home or self-care (01) ==
LOC: CHSIMG 12:42
PROVIDERS: PCP Family Medicine; Visit Provider Family Medicine
DX: M54.50 Low back pain, unspecified (principal); M43.04 Spondylolysis, thoracic region; M43.06 Spondylolysis, lumbar region
CPT/HCPCS: 72128; 72131

== ENCOUNTER 2022-07-26 21:32 | Emergency (ER) | payer OTHER, SELFPAY ==
--- NOTE | ~2022-07-26 | XR_ITS ---
AP and lateral views of the left tibia/fibula Clinical History: Pain Findings: No acute fracture or dislocation is seen. Osseous alignment is anatomic. Joint spaces are p reserved without significant erosive or degenerative change. Soft tissues are unremarkable. Impression: Unremarkable left tib-fib radiographs. Reviewed, dictated and finalized at location . Impression: Unremarkable left tib-fib radiographs.
--- NOTE | 2022-07-27 06:24 | PC.NURSE ---
See Paper Chart;
== END 2022-07-26 23:10 | disposition home or self-care (01) ==
PROVIDERS: Emergency Provider Emergency Medicine; PCP Internal Medicine
DX: L03.116 Cellulitis of left lower limb (principal); I10 Essential (primary) hypertension; F17.210 Nicotine dependence, cigarettes, uncomplicated
CPT/HCPCS: 73590; 99284; A9270

== ENCOUNTER 2022-12-03 10:52 | Emergency (ER) | payer OTHER, SELFPAY ==
--- NOTE | ~2022-12-03 | XR_ITS ---
XR chest 1V portable DATE: 12/03/2022 11:27 INDICATION: Cough for 4 weeks. Chronic mid back pain. TECHNIQUE: Portable upright AP chest on 12/03/2022 at 1127 hours COMPARISON: 02/15/2019 2 view chest FINDINGS: Borderline heart size. No hilar or mediastinal enlargement. Probable mild bibasilar chronic discoid scarring. Mild infiltrate or atelectasis is suggested in the lower lung zones. The lungs appear moderately hyperinflated. No pleural effusion or pulmonary vascular congestion or pneumothorax. IMPRESSION: Mild infiltrate or atelectasis is suggested in the lower lung zones Borderline heart size Reviewed, dictated and finalized at location A.
[2022-12-03 11:03] VITALS: BP 173/103; PULSE 98; RESP 18; TEMP 36.3; O2SAT 100
--- NOTE | 2022-12-03 11:11 | ED.URI ---
HPI - URI/Sore Throat General Chief Complaint: Upper Respiratory Infection Stated Complaint: cough Time Seen by Provider: 12/03/22 11:08 Source: patient Mode of arrival: ambulatory Limitations: no limitations History of Present Illness HPI Narrative: 62-year-old female, smoker with a history of hypertension, dyslipidemia, emphysema presents to the ER with a 4 week history of -- cough- which is nonproductive -- wheezing -- shortness of breath no fever or chills. No chest pain. No upper respiratory tract symptoms. MD elicited complaint: cough Pertinent past history: COPD Onset (ago): week(s) ( Four weeks) Consistency: constant Description of mucous: clear Able to tolerate fluids by mouth: No Exacerbating factors: nothing Relieving factors: nothing Associated symptoms: denies other symptoms, cough and shortness of breath Treatments prior to arrival: none Related Data Home Medications Medication Instructions Recorded Confirmed lisinopril 20 mg tablet 10 mg PO HS 11/03/19 12/03/22 simvastatin 10 mg tablet 10 mg PO DAILY 11/03/19 12/03/22 Allergies Allergy/AdvReac Type Severity Reaction Status Date / Time Penicillins Allergy Intermediate Hives Verified 12/03/22 12:12 trimethobenzamide [Tigan] Allergy Intermediate Vomiting Verified 12/03/22 12:12 varenicline [Chantix] Allergy Intermediate Vomiting Verified 12/03/22 12:12 NSAIDS (Non-Steroidal Allergy Mild abdominal Verified 12/03/22 12:12 Anti-Inflamma pain PENICILLIN Allergy Hives Uncoded 12/03/22 12:12 TRIMETHOBENZAMIDE HCL Allergy Unknown Uncoded 12/03/22 12:12 Review of Systems Review of Systems: All systems reviewed & are unremarkable except as noted in HPI and below Constitutional: Constitutional: Reports as per HPI and Reports no additional constitutional complaints Eyes: Eyes: Reports as per HPI and Reports no additional eye complaints ENT: Reports system reviewed and no additional complaints, except as documented and Reports as per HPI Cardiovascular: Cardiovascular: Reports as per HPI and Reports no additional cardiovascular complaints Respiratory: Respiratory: Reports as per HPI, Reports no additional respiratory complaints, Reports cough, Reports dyspnea and Reports wheezing Gastrointestinal: Gastrointestinal: Reports as per HPI and Reports no additional gastrointestinal complaints Genitourinary: Genitourinary: Reports no additional female genitourinary complaints Integumentary/Breasts: Skin/Breast: Reports system reviewed and no additional complaints, except as docu Neurologic: Reports system reviewed and no additional complaints, except as documented Psychiatric: Psychiatric: Reports no additional psychiatric complaints and Reports as per HPI Endocrine: Endocrine: Reports no additional endocrine complaints and Reports as per HPI Hematologic/Lymphatic: Hematologic/Lymphatic: Reports no additional hematologic/lymphatic complaints and Reports as per HPI Allergic/Immunologic: Allergic/Immunologic: Reports no additional allergic/immunologic complaints and Reports as per HPI PMFSH Past Medical History Medical History (Updated 12/03/22 @ 12:50 by Nestor Manley MD) Emphysema lung Hyperlipidemia Hypertension Family History Family History Father Family history of type 2 diabetes mellitus Hypertension Mother Hypertension Social History Social History Smoking status: Current every day smoker Gender identity (if verbalized by the patient): Female Exam Const: General: ill appearing Nutritional Appearance: well nourished Orientation/consciousness: patient oriented x3 Limitations: no limitations HENMT: Head: normal to inspection Ears: external ears normal Face/Nose/Sinus: Normal external nose present Face and sinus: normal facial exam Throat: posterior oropharynx normal Eyes: Conjunctivae: conjunctivae justin
[2022-12-03 11:18] VITALS: O2SAT 100
[2022-12-03] MEDS: IPRATROPIUM 0.5 MG/ALBUTEROL SULFATE 2.5 MG AMPUL.NEB 3 ML INHALATION (12:00)
[2022-12-03 12:02] VITALS: PULSE 78; RESP 18; O2SAT 100
[2022-12-03 12:15] VITALS: PULSE 76; RESP 20; O2SAT 96
[2022-12-03 12:39] LABS: Influenza Control Valid (Valid); SARS-CoV-2 Ag Positive (Negative)
--- NOTE | 2022-12-03 12:59 | PC.NURSE ---
On 12/03/22, the student, [sammie box ], provided care and completed [facility] documentation on this patient. I have reviewed the student's documentation and agree with the findings.
[2022-12-03 13:11] VITALS: BP 140/68; PULSE 82; RESP 18; TEMP 37; O2SAT 100
== END 2022-12-03 13:20 | disposition home or self-care (01) ==
PROVIDERS: Emergency Provider Internal Medicine Critical Care Medicine; PCP Internal Medicine
DX: U07.1 COVID-19 (principal); J44.1 Chronic obstructive pulmonary disease with (acute) exacerbation; I10 Essential (primary) hypertension; E78.5 Hyperlipidemia, unspecified; F17.200 Nicotine dependence, unspecified, uncomplicated; Z79.899 Other long term (current) drug therapy
CPT/HCPCS: 71045; 87426; 87804; 99283; C9803

== ENCOUNTER 2022-12-15 10:30 | Outpatient (CLI) | payer OTHER, SELFPAY ==
--- NOTE | ~2022-12-15 | CT_ITS ---
EXAMINATION:CT lung screening DATE: 12/15/2022 10:46 INDICATION: Personal history of nicotine dependence. Current smoker with 40 pack year history. TECHNIQUE: Computed tomography (CT) of the chest was performed without intravenous contrast. Automate d exposure control and iterative reconstruction technique were employed. The dose-length product (DLP ) was 92.42 mGy-cm. COMPARISON: Chest CT 08/23/2018 FINDINGS: There is moderate emphysema. There is mild scarring in paraspinal right lower lobe. There i s mild atelectasis bilaterally. Calcified left lung nodules are consistent with old granulomatous dis ease. No pleural effusion. There is a moderate-sized sliding hiatal hernia. There is left atrial enla rgement of the heart. No pericardial effusion. There are coronary artery calcifications. There are ch anges of cholecystectomy. There is severe thoracic spondylosis. There is mild chronic anterior wedgin g of T11 and T12 vertebral bodies. IMPRESSION: 1. Lung-RADS category 2: Benign appearance or behavior. Continue annual screening with noncontrast lo w-dose chest CT in 12 months. 2. Moderate-sized sliding hiatal hernia. Reviewed, dictated and finalized at location E. IMPRESSION: 1. Lung-RADS category 2: Benign appearance or behavior. Continue annual screeni ng with noncontrast low-dose chest CT in 12 months. 2. Moderate-sized sliding hiatal hernia.
== END 2022-12-15 10:31 | disposition home or self-care (01) ==
LOC: CHSIMG 10:33
PROVIDERS: PCP Internal Medicine; Visit Provider Internal Medicine
DX: Z12.2 Encounter for screening for malignant neoplasm of respiratory organs (principal); K44.9 Diaphragmatic hernia without obstruction or gangrene; R05.9 Cough, unspecified; Z87.891 Personal history of nicotine dependence
CPT/HCPCS: 71271

== ENCOUNTER 2023-04-14 17:37 | Outpatient (CLI) | payer OTHER, SELFPAY ==
--- NOTE | ~2023-04-14 | XR_ITS ---
EXAMINATION: XR nasal bones min 3V DATE: 04/14/2023 18:20 INDICATION: Nasal deformity. TECHNIQUE: 3 views of the nasal bones were obtained. COMPARISON: Head CT 03/06/2022 FINDINGS: There is rightward deviation of inferior nasal septum. No fracture. IMPRESSION: 1. No fracture. Reviewed, dictated and finalized at location E. BOUND BOX MACHINE HELPER IMPRESSION: 1. No fracture.
--- NOTE | ~2023-04-14 | XR_ITS ---
EXAMINATION: XR sinus min 3V DATE: 04/14/2023 18:20 INDICATION: Facial pain. Nose deformity. TECHNIQUE: 4 views of the paranasal sinuses were obtained. COMPARISON: Head CT 03/06/2022 FINDINGS: There is rightward deviation of inferior nasal septum. No fracture. The paranasal sinuses a re clear. There are surgical changes of the skull on the right. IMPRESSION: 1. No fracture. Reviewed, dictated and finalized at location E. R BRAKE OPERATOR IMPRESSION: 1. No fracture.
[2023-04-14 18:00] LABS: Hematocrit 40.8 % (35.0-49.0); Hemoglobin 12.5 g/dL (12.0-15.0); Mean Corpuscular HGB Conc 30.6 g/dL (32.0-36.0); Mean Corpuscular Volume 88.1 fL (78.0-102.0); Mean Platelet Volume 8.9 fl (9.2-11.8); Platelet Count Result 305 K/mm3 (150-420); Red Blood Count 4.63 M/mm3 (4.20-5.40)
[2023-04-14 18:01] LABS: Appearance Urine Clear (Clear); Bilirubin Urine Negative (Negative); Blood Urine Trace-Intact (Negative); Color Urine Yellow (Yellow); Glucose Urine UA Negative (Negative); Ketones Urine Negative (Negative); Leukocyte Esterase Ur Negative (Negative); Nitrate Urine Negative (Negative); Protein Urine Negative (Negative); Specific Grav Ur >= 1.030 (1.010-1.020); Urobilinogen Urine 0.2 mg/dL (0.2-1.0); pH Urine 5.5 (5.0-8.0)
[2023-04-14 18:06] LABS: Add Urine Microscopic? YES; Bacteria Urine None seen /hpf; RBC Urine 0-2 /hpf (0-2); Squamous Epithelial Cell Urine Rare /hpf (Few); WBC Urine 0-3 /hpf (0-3)
[2023-04-14 18:07] LABS: Amphetamine Screen Urine Positive (Negative); Barbiturate Screen Urine Negative (Negative); Benzodiazepines Screen Urine Negative (Negative); Cannabinoid Screen Urine Negative (Negative); Cocaine Screen Urine Negative (Negative); Methadone Screen Urine Negative (Negative); Opiate Screen Urine Positive (Negative); Phencyclidine Screen Urine Negative (Negative)
[2023-04-14 19:44] LABS: Alanine Aminotransferase 31 U/L (14-59); Albumin Level 3.3 g/dL (3.4-5.0); Alkaline Phosphatase 141 U/L (46-116); Anion Gap 11 mmol/L (8-16); Aspartate Amino Transferase 21 U/L (15-37); Bilirubin,Total 0.2 mg/dL (0.00-1.00); Blood Urea Nitrogen 17 mg/dL (7-18); Calcium 8.2 mg/dL (8.5-10.1); Carbon Dioxide 28 mmol/L (21-32); Chloride 105 mmol/L (98-108); Cholesterol 229 mg/dL (0-200); Estimated Glomerular Filt Rate > 60; Glucose 114 mg/dL (70-99); HDL Direct 64 mg/dL (40-60); LDL Cholesterol Calculated 133 mg/dL (<130); Osmolality Calculated 300 mOsm/kg (285-295); Potassium 4.1 mmol/L (3.5-5.1); Sodium 144 mmol/L (136-145); Thyroid Stimulating Hormone 1.11 uIU/mL (0.36-3.74); Total Protein 6.5 g/dL (6.4-8.2); Triglycerides 161 mg/dL (0-150)
[2023-04-17 09:30] LABS: Hemoglobin A1C 6.5 % (<5.7)
== END 2023-04-14 17:38 | disposition home or self-care (01) ==
LOC: CHSLAB 17:40
PROVIDERS: PCP Internal Medicine; Visit Provider Internal Medicine
DX: I10 Essential (primary) hypertension (principal); E78.5 Hyperlipidemia, unspecified; J34.89 Other specified disorders of nose and nasal sinuses; R73.09 Other abnormal glucose
CPT/HCPCS: 36415; 70160; 70220; 80053; 80061; 80307; 81001; 83036; 84443; 85027

== ENCOUNTER 2023-04-28 14:04 | Outpatient (CLI) | payer OTHER, SELFPAY ==
--- NOTE | ~2023-04-28 | CT_ITS ---
EXAMINATION: CT brain wo con DATE: 04/28/2023 14:21 INDICATION: Headache. TECHNIQUE: Computed tomography (CT) of the head was performed without intravenous contrast. The mA wa s adjusted according to patient size. Iterative reconstruction technique was employed. The dose-lengt h product was 605.33 mGy-cm. COMPARISON: Head CT 03/06/2022 FINDINGS: There is no intracranial hemorrhage, acute infarction, or abnormal intracranial mass lesion . The ventricles are normal in size. The orbits are normal. The paranasal sinuses are clear. The mast oid air cells are normal. There is an old right-sided bassem hole. IMPRESSION: 1. Normal brain. Reviewed, dictated and finalized at location E. Y FROZEN MANAGER IMPRESSION: 1. Normal brain.
== END 2023-04-28 14:05 | disposition home or self-care (01) ==
LOC: CHSIMG 14:05
PROVIDERS: PCP Internal Medicine; Visit Provider Internal Medicine
DX: R51.9 Headache, unspecified (principal)
CPT/HCPCS: 70450

== ENCOUNTER 2024-01-10 16:56 | Outpatient (CLI) | payer SELFPAY ==
[2024-01-10 17:33] LABS: Basophils Absolute Auto 0.07 K/mm3 (0.00-0.10); Basophils Percent Auto 0.6 % (0.0-1.0); Eosinophils Absolute Auto 0.35 K/mm3 (0.02-0.50); Eosinophils Percent Auto 2.8 % (1.0-6.0); Hematocrit 38.6 % (35.0-49.0); Hemoglobin 12.3 g/dL (12.0-15.0); Immature Granulocyte Absolute 0.04 K/mm3 (0.00-0.00); Immature Granulocyte Percent A 0.3 % (0.0-0.0); Lymphocytes Absolute Auto 2.12 K/mm3 (1.10-4.50); Lymphocytes Percent Auto 17.1 % (18.0-42.0); Mean Corpuscular HGB Conc 31.9 g/dL (32-36); Mean Corpuscular Hemoglobin 27.8 pg (27.0-31.0); Mean Corpuscular Volume 87.1 fL (78.0-102.0); Mean Platelet Volume 8.8 fl (9.2-11.8); Monocytes Absolute Auto 0.68 K/mm3 (0.10-0.90); Monocytes Percent Auto 5.5 % (2.0-11.0); Neutrophils Absolute Auto 9.11 K/mm3 (1.70-7.20); Neutrophils Percent Auto 73.7 % (50.0-70.0); Platelet Count Result 334 K/mm3 (150-420); Red Blood Count 4.43 M/mm3 (4.20-5.40); White Blood Count 12.4 K/mm3 (4.8-10.8)
[2024-01-10 18:51] LABS: Alanine Aminotransferase 117 U/L (14-59); Albumin Level 2.9 g/dL (3.4-5.0); Alkaline Phosphatase 190 U/L (46-116); Anion Gap 9 mmol/L (4-12); Aspartate Amino Transferase 68 U/L (15-37); Bilirubin,Total 0.3 mg/dL (0.00-1.00); Blood Urea Nitrogen 23 mg/dL (7-18); CRP 9.2 mg/dL (0.0-0.9); Calcium 8.3 mg/dL (8.5-10.1); Carbon Dioxide 28 mmol/L (21-32); Chloride 107 mmol/L (98-108); Creatine Kinase 186 U/L (26-192); Estimated Glomerular Filt Rate > 60; Glucose 111 mg/dL (70-99); Osmolality Calculated 302 mOsm/kg (285-295); Sodium 144 mmol/L (136-145); Total Protein 6.4 g/dL (6.4-8.2)
[2024-01-10 19:00] LABS: Potassium 5.5 mmol/L (3.5-5.1)
[2024-01-10 19:52] LABS: Amphetamine Screen Urine Negative (Negative); Barbiturate Screen Urine Negative (Negative); Benzodiazepines Screen Urine Negative (Negative); Cannabinoid Screen Urine Negative (Negative); Cocaine Screen Urine Negative (Negative); Methadone Screen Urine Negative (Negative); Opiate Screen Urine Positive (Negative); Phencyclidine Screen Urine Negative (Negative)
[2024-01-11 11:50] LABS: HIV 1 P24 AG Negative (Negative); HIV 1/2 AB Negative (Negative)
[2024-01-12 10:14] LABS: Hepatitis B Surface Antigen NON-REACTIVE (NON-REACTIVE)
[2024-01-12 12:04] LABS: Hepatitis A Antibody IgM NON-REACTIVE (NON-REACTIVE); Hepatitis B Core Antibody NON-REACTIVE (NON-REACTIVE); Hepatitis C Virus Antibody NON-REACTIVE (NON-REACTIVE)
== END 2024-01-10 16:57 | disposition home or self-care (01) ==
LOC: CHSLAB 16:59
PROVIDERS: PCP Internal Medicine; Visit Provider Internal Medicine
DX: I10 Essential (primary) hypertension (principal); L02.92 Furuncle, unspecified; Z79.899 Other long term (current) drug therapy; R94.5 Abnormal results of liver function studies
CPT/HCPCS: 36415; 80053; 80074; 80307; 82550; 85025; 86140; 87806

== ENCOUNTER 2024-10-01 01:31 | Emergency (ER) | payer OTHER, SELFPAY ==
[2024-10-01 01:31] VITALS: BP 209/90; PULSE 99; RESP 18; TEMP 36.8; O2SAT 95
--- OUTSIDE RECORDS SUMMARY | 2024-10-01 01:38 | XMS_ITS | Clinical Summary ---
Author Organization [facility] Address [address] [place] [address] Care Team Providers Care Product Assurance Engineer Name Role Phone No, Physician Primary Care Provider [phone] Saroj Solano MD Unavailable [phone] Allergies Active Allergy Reactions Criticality Noted Date Comments Penicillins Hives,Itching High 11/30/2018 Trimethobenzamide Itching Medium 11/30/2018 Medications No known medications Active Problems Problem Noted Date Diagnosed Date Frequent headaches 11/18/2015 Shoulder pain 07/09/2014 Overview (06/23/2016): Shoulder pain Hypercholesterolemia 05/06/2014 Overview (06/23/2016): High cholesterol Tobacco use 05/06/2014 Overview (06/23/2016): Tobacco use Hypertension 05/06/2014 Overview (06/23/2016): Hypertension Gastroesophageal reflux disease 09/13/2011 Constipation 09/13/2011 Abdominal pain 06/17/2010 Nicotine dependence 06/02/2010 Biliary calculus 06/02/2010 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 2009 .; Comments: JJC 05/06/2014 - Hx Other Medical Rotator cuff meng rg. 2014.; Comments: JJC 05/06/2014 - Hx Other Medical Brain surg. 200 0.; Comments: JJC 05/06/2014 - Cancer (HCC) Family History Medical History Relation Name Comments Diabetes Father Family history of diabetes mellitus - (Added by TW Conv) Hypertension Father Family history of hypertension - (Added by TW Conv) Kidney disease Father Family histor y of kidney disease - (Added by TW Conv) Thyroid disease Father Family histo ry of thyroid disease - (Added by TW Conv) Hypertension Mother Family history of hypertension - (Added by TW Conv) Relation Name Status Comments Father Mother Social History Tobacco Use Types Packs/Day Years Used Date Smoking Tobacco: Never Smokeless Tobacco: Never Alcohol Use Standard Drinks/Week Comments Not Currently 0 (1 standard drink = 0.6 oz pur e alcohol) Comments Unknown Sex and Gender Information Value Date Recorded Sex Assigned at Not on file Legal Sex Female 1:38 AM RETORT FIRER Gender Identity Not on file Sexual Orientation Not on file Obstetrics History Last Filed Vital Signs Vital Sign Reading Time Taken Comments Blood Pressure 181/96 05/24/2019 11:30 AM RETORT FIRER Pulse 92 05/24/2019 11:30 AM RETORT FIRER Temperature - - Respiratory Rate - - Oxygen Saturation - - Inhaled Oxygen Concentration - - Weight 78 kg (172 lb) 05/24/2019 11:30 AM RETORT FIRER Height 171.5 cm (5' 7.5) 05/24/2019 11:30 AM CS T Body Mass Index 26.54 05/24/2019 11:30 AM RETORT FIRER Plan of Treatment Not on file Insurance [facility] CHOICE PLUS Care Teams Product Assurance Engineer Relationship Specialty Start Date End Date No, Physician PCP - General 04/18/19 Saroj Solano MD Family Medicine 04/18/19
--- OUTSIDE RECORDS SUMMARY | 2024-10-01 01:38 | XMS_ITS | Referral Summary ---
Author Organization [facility] Address [address] [place] [address] Care Team Providers Care Entry Level Manager Name Role Phone No, Physician Primary Care Provider [phone] Saroj Solano MD Unavailable [phone] Allergies Active Allergy Reactions Criticality Noted Date [...] Influenza, Trivalent, Preservative Free, Intramu scular 12/18/2014 Social History Tobacco Use Types Packs/Day Years Used Date Smoking Tobacco: Never Smokeless Tobacco: Never Alcohol Use Standard Drinks/Week Comments Not Currently 0 (1 standard drink = 0.6 oz pur e alcohol) Comments Unknown Sex and Gender Information Value Date Recorded Sex Assigned at Not on file Legal Sex Female 1:38 AM DOPE MIXER Gender Identity Not on file Sexual Orientation Not on file Last Filed Vital Signs Vital Sign Reading Time Taken Comments Blood Pressure 181/96 05/24/2019 11:30 AM DOPE MIXER Pulse 92 05/24/2019 11:30 AM DOPE MIXER Temperature - - Respiratory Rate - - Oxygen Saturation - - Inhaled Oxygen Concentration - - Weight 78 kg (172 lb) 05/24/2019 11:30 AM DOPE MIXER Height 171.5 cm (5' 7.5) 05/24/2019 11:30 AM CS T Body Mass Index 26.54 05/24/2019 11:30 AM DOPE MIXER Plan of Treatment Not on file Insurance [facility] CHOICE PLUS Care Teams Entry Level Manager Relationship Specialty Start Date End Date No, Physician PCP - General 04/18/19 Saroj Solano MD Family Medicine 04/18/19
--- OUTSIDE RECORDS SUMMARY | 2024-10-01 01:38 | XMS_ITS | Clinical Summary ---
Author Organization [facility] Address [address] [place] [address] Care Team Providers Care Crystallography Teacher Name Role Phone Tommie Archuleta MD Primary Care Provider [phone] Source Comments [facility] [employer],non-owned Affiliates and Associated Physician Practices is amultiple site organization consisting of ambulatory clinics and hospital sitesin [place], [place], [place] and [place]. This disclosure is being madepursuant to the Care Everywhere program and may not contain all information available regarding this patient. 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 Gender Identity Not on file Sexual Orientation Not on file Plan of Treatment Health Maintenance Due Date Last Done Comments BONE DENSITY TESTING 1959 COLOGUARD (AGES 45-75) - COL ON CA SCREENING 1959 COLON MONITORING 1959 COLONOSCOPY - COLON CA SCREENING 1959 CT COLONOGRAPHY - COLON CA SCREENING 1959 Colorectal Cancer Screening 1959 FIT - COLON CA SCREENING 1959 FLEX SIG - COLON CA SCREENING 1959 LIPID TESTING 1959 MAMMOGRAM 1959 HIV SCREENING 1974 HEPATITIS C SCREENING 02/11/1977 DTAP/TDAP/TD VACCINES (1 - Tdap) 1978 PNEUMOCOCCAL VACCINE 50+ (1 of 1 - PCV) 2009 ZOSTER VACCINE (1 of 2) 2009 COVID-19 VACCINE (2023-2 5 season) 2023 DEPRESSION SCREENING 03/20/2024 INFLUENZA VACCINE (#1) 2024 Respiratory Syncytial Virus (RSV) Vaccine Pt: or over 60 yrs (1 - 1-dose 75+ series) 2034 HEPATITIS B VACCINE Aged Out No longe r eligible based on patient's age to complete this topic HIB VACCINE Aged Out No longer eligi ble based on patient's age to complete this topic HPV VACCINE Aged Out No longer eligi ble based on patient's age to complete this topic MENINGOCOCCAL (Group B) VACC INE SHARED DECISION-MAKING Aged Out No longer eligibl e based on patient's age to complete this topic MENINGOCOCCAL GROUPS A/C/Y/W VACCINE Aged Out No longer eligible b ased on patient's age to complete this topic Insurance [facility] Address: [facility] [address] [place] [address] Care Teams Crystallography Teacher Relationship Specialty Start Date End Date Tommie Archuleta MD [address] [place] [address] PCP - General 05/21/18
--- NOTE | 2024-10-01 02:13 | ED_ITS ---
HPI - Skin/Abscess/Foreign Bdy General Chief complaint: Skin/Abscess/Foreign Body Stated complaint: blistering Time Seen by Provider: 10/01/24 02:13 Source: patient and family Mode of arrival: ambulatory Limitations: no limitations History of Present Illness HPI narrative: 64 years old white female came from home with her daughter complaining of itching skin with a lot of sores started 4-6 months ago, was seen by her family physician started on prednisone with slight improvement then everything back to sq 1. She denies any fever, chills, nausea, vomiting, difficulty breathing or swallowing. Related Data Home Medications ?Medication ?Instructions ?Recorded ?Confirmed ?Last Taken ?Type lisinopril 20 mg tablet 10 mg PO HS 11/03/19 12/03/22 Unknown History simvastatin 10 mg tablet 10 mg PO DAILY 11/03/19 12/03/22 Unknown History Allergies Allergy/AdvReac Type Severity Reaction Status Date / Time Penicillins Allergy Intermediate Hives Verified 10/01/24 02:01 trimethobenzamide (Tigan) Allergy Intermediate Vomiting Verified 10/01/24 02:01 varenicline (Chantix) Allergy Intermediate Vomiting Verified 10/01/24 02:01 NSAIDS (Non-Steroidal Allergy Mild abdominal Verified 10/01/24 02:01 Anti-Inflamma pain PENICILLIN Allergy Hives Uncoded 12/03/22 12:12 TRIMETHOBENZAMIDE HCL Allergy Unknown Uncoded 12/03/22 12:12 Review of Systems Review of Systems: All systems reviewed & are unremarkable except as noted in HPI and below PMFSH Past Medical History Medical History Emphysema lung Hyperlipidemia Hypertension Family History Family History Father Family history of type 2 diabetes mellitus Hypertension Mother Hypertension Sibling No problems noted. Social History Social History Smoking status: Current every day smoker Gender identity (if verbalized by the patient): Female Exam Narrative: General appearance: Well-developed, well-nourished Skin: Normal color, multiple sores all over face, forearms, lower extremities anteriorly. Nothing on the back or the buttock or the back of the lower extremities. Some of the sores are infected with slight erythematous changes Head: Normocephalic, nontraumatic Eyes: Clear conjunctiva ENT: Oropharynx normal, ears normal, nose normal Neck: Supple, nontender Chest and respiratory: Airway patent, no respiratory distress, no accessory muscle use Heart: Regular rate/rhythm Abdomen: Soft, nontender, no organomegaly, quiet bowel sounds Vascular: Normal peripheral pulses, normal capillary refill. Musculoskeletal: Normal range of motion, nontender back Neurologic: Alert and oriented ?3, TAPE RECORDING MACHINE OPERATOR is normal as tested, no gross motor deficit Course Vital Signs Vital signs: Vital Signs Temperature 36.8 C 10/01/24 01:31 Pulse Rate 99 10/01/24 01:31 Respiratory Rate 18 10/01/24 01:31 Blood Pressure 209/90 H 10/01/24 01:31 Pulse Oximetry 95 10/01/24 01:31 Oxygen Delivery Room Air 10/01/24 01:31 Temperature 36.8 C 10/01/24 01:31 Pulse Rate 99 10/01/24 01:31 Respiratory Rate 18 10/01/24 01:31 Blood Pressure 209/90 H 10/01/24 01:31 Pulse Oximetry 95 10/01/24 01:31 Oxygen Delivery Room Air 10/01/24 01:31 MDM - Skin/Abscess/Foreign Bdy MDM Narrative Medical decision making narrative: Patient presents with itching and sores with and without infection. After talking to the patient and explaining that her symptom match very much with skin picking disorder. Patient's mild and agreed and report that she could not stop. my plan to discharge patient on prednisone Zyrtec and clindamycin for the itching, and infected sores. Patient was advised to follow-up with her family physician possible SSRIS prescription Differential Diagnosis Differential diagnosis: Likely other ( excoriation, obsessive-compulsive, emotional disturbance) Critical Care Time Critical Care Time Critical Care Time: No Discharge Plan Discharge Clinical Impression: Excoriation (skin-picking) disorder Patient Disposition: Home Condition: Stable Instructions: Antibiotic Form, Dermatitis (ED) Additional Instructions: Return if symptoms are worsening , call your family physician for appointment, take Tylenol, ibuprofen as as needed for aches and pain, continue home medications. . Repeated skin picking, Contact your family physician for anti stress/ depression medications Patient Language: British Prescriptions: New Zyrtec 10 mg capsule 10 mg PO BID PRN (Reason: allergy symptoms) Qty: 30 0RF prednisone 20 mg tablet 40 mg PO DAILY 5 Days Qty: 10 0RF clindamycin HCl [Cleocin HCl] 150 mg capsule 450 mg PO Q8H 10 Days Qty: 90 0RF No Action azithromycin [Zithromax] 250 mg tablet See Rx Instructions .ROUTE .COMPLEX Qty: 6 0RF Rx Instructions: For 250 mg dose pack: take 500 mg today (day 1), then 250 mg for 4 days (days 2-5) lisinopril 20 mg tablet 10 mg PO HS simvastatin 10 mg tablet 10 mg PO DAILY Follow-up/Referrals: Sumit Caballero MD [Primary Care Provider] -
--- NOTE | 2024-10-01 02:26 | PC.NURSE ---
ERP DR. SCHNEIDER AT PATIENT BEDSIDE FOR DISCHARGE DIAGNOSIS AND PRESENTATION OF DISCHARGE AT THIS TIME.
--- OUTSIDE RECORDS SUMMARY | 2024-10-01 02:26 | XMS_ITS | Clinical Summary ---
Author Organization [facility] Address [address] [place] [address] Care Team Providers Care Director Of Psychology Name Role Phone Tommie Archuleta MD Primary Care Provider [phone] Source Comments [facility] [employer],non-owned Affiliates and Associated Physician Practices is amultiple site organization consisting of ambulatory clinics and hospital sitesin [place], [place], [place] and [place]. This disclosure is being madepursuant to the Care Everywhere program and may not contain all information available regarding this patient. 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
--- OUTSIDE RECORDS SUMMARY | 2024-10-01 02:26 | XMS_ITS | Clinical Summary ---
Author Organization [facility] Address [address] [facility] [address] [place] [address] Care Team Providers Care Visual Stylist Name Role Phone No, Physician Primary Care Provider [phone] Saroj Solano MD Unavailable [phone] Allergies Active Allergy Reactions Criticality Noted Date [...] on file Legal Sex Female 1:38 AM MEDICINAL PLANT PICKER Gender Identity Not on file Sexual Orientation Not on file Obstetrics History Last Filed Vital Signs Vital Sign Reading Time Taken Comments Blood Pressure 181/96 05/24/2019 11:30 AM MEDICINAL PLANT PICKER Pulse 92 05/24/2019 11:30 AM MEDICINAL PLANT PICKER Temperature - - Respiratory Rate - - Oxygen Saturation - - Inhaled Oxygen Concentration - - Weight 78 kg (172 lb) 05/24/2019 11:30 AM MEDICINAL PLANT PICKER Height 171.5 cm (5' 7.5) 05/24/2019 11:30 AM CS T Body Mass Index 26.54 05/24/2019 11:30 AM MEDICINAL PLANT PICKER Plan of Treatment Not on file Insurance [facility] CHOICE PLUS Care Teams Visual Stylist Relationship Specialty Start Date End Date No, Physician PCP - General 04/18/19 Saroj Solano MD Family Medicine 04/18/19
--- OUTSIDE RECORDS SUMMARY | 2024-10-01 02:26 | XMS_ITS | Referral Summary ---
Author Organization [facility] Address [address] [facility] [place] [address] Care Team Providers Care Peer Financial Counselor Name Role Phone No, Physician Primary Care Provider [phone] Saroj Solano MD Unavailable [phone] Allergies Active Allergy Reactions Criticality Noted Date [...] on file Legal Sex Female 1:38 AM QUALITY ASSURANCE MONITOR CHASSIS Gender Identity Not on file Sexual Orientation Not on file Last Filed Vital Signs Vital Sign Reading Time Taken Comments Blood Pressure 181/96 05/24/2019 11:30 AM QUALITY ASSURANCE MONITOR CHASSIS Pulse 92 05/24/2019 11:30 AM QUALITY ASSURANCE MONITOR CHASSIS Temperature - - Respiratory Rate - - Oxygen Saturation - - Inhaled Oxygen Concentration - - Weight 78 kg (172 lb) 05/24/2019 11:30 AM QUALITY ASSURANCE MONITOR CHASSIS Height 171.5 cm (5' 7.5) 05/24/2019 11:30 AM CS T Body Mass Index 26.54 05/24/2019 11:30 AM QUALITY ASSURANCE MONITOR CHASSIS Plan of Treatment Not on file Insurance [facility] CHOICE PLUS Care Teams Peer Financial Counselor Relationship Specialty Start Date End Date No, Physician PCP - General 04/18/19 Saroj Solano MD Family Medicine 04/18/19
== END 2024-10-01 02:30 | disposition home or self-care (01) ==
LOC: CHSED 02:24
PROVIDERS: Emergency Provider Emergency Medicine; PCP Internal Medicine
DX: F42.4 Excoriation (skin-picking) disorder (principal); J43.9 Emphysema, unspecified; I10 Essential (primary) hypertension; E78.5 Hyperlipidemia, unspecified; F17.200 Nicotine dependence, unspecified, uncomplicated
CPT/HCPCS: 99283

== ENCOUNTER 2024-11-05 14:55 | Outpatient (CLI) | payer OTHER, SELFPAY ==
--- NOTE | 2024-11-05 15:00 | ECHO_ITS ---
Patient Info Name: Mami Taylor Age: 64 years : 1960 Gender: Female Ht: 67 in Wt: 165 lbs BSA: 1.89 m2 HR: 88 bpm BP: 151 / 66 mmHg Heart Rhythm: Sinus Rhythm Technical Quality: Fair Exam Date: 11/05/2024 3:08 PM Patient Status: unknown Admit Date: 11/05/2024 Exam Type: CA echo doppler color flow Complete two-dimensional, color flow and Doppler transthoracic echocardiogram is performed. Machine Designer: Ivonne Sawyer Attending Provider: Sumit Caballero MD Summary 1. Complete two-dimensional, color flow and Doppler transthoracic echocardiogram is performed. 2. Left ventricular chamber dimension is normal. 3. Left ventricular systolic function is hyperdynamic, estimated at >70. 4. There is mild concentric increased left ventricular wall thickness. 5. The left ventricular diastolic function is grade I diastolic dysfunction. 6. E/e' 22 is elevated. 7. Left atrial chamber dimension is severely enlarged. 8. There is mild aortic valve sclerosis. 9. The mitral valve has mildly calcified leaflets and a moderately calcified annulus. 10. There is trace tricuspid valve regurgitation. 11. Mild pulmonary hypertension, estimated pulmonary arterial systolic pressure is 41 mmHg. Left Ventricle E/e' 22 is elevated. Left ventricular chamber dimension is normal. Left ventricular systolic function is hyperdynamic, estimated at >70. There is mild concentric increased left ventricular wall thickness. The left ventricular diastolic function is grade I diastolic dysfunction. Right Ventricle Right ventricular chamber dimension is normal. Right ventricular systolic function is normal and with normal TAPSE 2.5 cm. Left Atria Left atrial chamber dimension is severely enlarged. Right Atria Right atrial chamber dimension is normal. Aortic Valve The aortic valve is trileaflet. There is mild aortic valve sclerosis. There is no aortic valve stenosis. There is no aortic valve regurgitation. Pulmonic Valve There is no pulmonic regurgitation. Mitral Valve The mitral valve has mildly calcified leaflets and a moderately calcified annulus. There is no mitral valve stenosis. There is no mitral valve regurgitation. Tricuspid Valve There is trace tricuspid valve regurgitation. Mild pulmonary hypertension, estimated pulmonary arterial systolic pressure is 41 mmHg. Pericardium/Pleural There is no pericardial effusion. Inferior Vena Cava Normal inferior vena cava with >50% collapse upon inspiration consistent with normal right atrial pressure, 5 mmHg. Aorta The aortic root size at the sinus of Valsalva is normal. Left Ventricular Outflow Tract Name Value Normal LVOT 2D LVOT Diameter 2.0 cm LVOT Doppler LVOT Peak Velocity 204 cm/s LVOT Peak Gradient 17 mmHg LVOT Mean Gradient 11 mmHg LVOT VTI 46 cm LVOT VTI/AV VTI Ratio 0.9 LVOT Stroke Volume 141 ml LVOT CO 10.7 l/min LVOT CI 5.6 l/min/m2 Pulmonic Valve Name Value Normal RVOT Doppler RVOT Peak Velocity 84 cm/s RVOT Peak Gradient 3 mmHg PV Doppler PV Peak Velocity 107 cm/s PV Peak Gradient 5 mmHg Mitral Valve Name Value Normal MV Doppler MV Peak Gradient 12 mmHg MV Mean Gradient 7 mmHg MV Area (Cont Eq VTI) 3.3 cm2 MV Diastolic Function MV E Peak Velocity 122 cm/s MV A Peak Velocity 131 cm/s MV E/A 0.9 MV Decel Time (PW) 224 ms MV Annular TDI MV E/e' (Septal) 21.4 MV E/e' (Lateral) 22.9 MV E/e' (Average) 22.2 Tricuspid Valve Name Value Normal TV Regurgitation Doppler TR Peak Velocity 301 cm/s TR Peak Gradient 36 mmHg Estimated PAP/RSVP RA Pressure 5 mmHg <=5 PA Systolic Pressure 41 mmHg <36 RV Systolic Pressure 41 mmHg <36 TV Annular TDI TV Lateral Lyubov s' Velocity 13.5 cm/s >=9.5 Aorta Name Value Normal Ascending Aorta Ao Root Diameter (MM) 3.5 cm Ao Root Diam Index (MM) 1.8 cm/m2 Aortic Valve Name Value Normal AV Doppler AV Peak Velocity 286 cm/s AV Peak Gradient 33 mmHg AV Mean Gradient 15 mmHg AV VTI 50 cm AV Area (Cont Eq VTI) 2.9 cm2 >=3.0 AV Area (Cont Eq Yaakov) 2.2 cm2 AV DI (Yaakov) 0.71 AV Regurgitation 2D LVOT Area 3.1 cm2 Ventricles Name Value Normal LV Dimensions 2D/MM IVS Diastolic Thickness (2D) 1.2 cm 0.6-1.0 LVID Diastole (2D) 4.2 cm 3.8-5.2 LVIW Diastolic Thickness (2D) 1.0 cm 0.6-0.9 LVID Systole (2D) 2.7 cm 2.2-3.5 LVOT Diameter 2.0 cm LV Mass (2D Cubed) 156.35 g 67.00-162.00 LV Mass Index (2D Cubed) 83 g/m2 43-95 Relative Wall Thickness (2D) 0.49 <=0.42 LV Fractional Shortening/Ejection Fraction 2D/MM LV Fractional Shortening (2D) 36 % 27-45 LV EF (2D Teichholz) 67 % LV Diastolic Volume (4C MOD) 89 ml LV EF (4C MOD) 73 % LV Diastolic Volume (2C MOD) 76 ml LV EF (2C MOD) 61 % LV Diastolic Volume (BP MOD) 87 ml 46-106 LV Diastolic Volume Index (BP MOD) 46 ml/m2 29-61 LV Systolic Volume (BP MOD) 29 ml 14-42 LV Systolic Volume Index (BP MOD) 15 ml/m2 8-24 LV EF (BP MOD) 66 % 54-74 LV Diastolic Length (4C) 7.9 cm LV Systolic Length (4C) 6.0 cm LV Stroke Volume (4C MOD) 65 ml Atria Name Value Normal LA Dimensions LA Dimension (MM) 4.5 cm 2.7-3.8 LA Volume (4C A-L) 87 ml LA Volume (BP A-L) 108 ml RA Dimensions RA Systolic Major [place] Length (4C) 4.6 cm 2.2-2.8 RA Area (4C) 12.3 cm2 <=18.0 Report Signatures
--- OUTSIDE RECORDS SUMMARY | 2024-11-05 15:25 | XMS_ITS | Clinical Summary ---
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 Gender Identity Not on file Sexual Orientation Not on file Obstetrics History Last Filed Vital Signs Vital Sign Reading Time Taken Comments Blood Pressure 181/96 05/24/2019 11:30 AM OFFICE MACHINE SERVICER Pulse 92 05/24/2019 11:30 AM OFFICE MACHINE SERVICER Temperature - - Respiratory Rate - - Oxygen Saturation - - Inhaled Oxygen Concentration - - Weight 78 kg (172 lb) 05/24/2019 11:30 AM OFFICE MACHINE SERVICER Height 171.5 cm (5' 7.5) 05/24/2019 11:30 AM CS T Body Mass Index 26.54 05/24/2019 11:30 AM OFFICE MACHINE SERVICER Plan of Treatment Not on file Insurance [employer] Care Teams Bonding Agent Relationship Specialty Start Date End Date No, Physician PCP - General 04/18/19 Saroj Solano MD Family Medicine 04/18/19
--- OUTSIDE RECORDS SUMMARY | 2024-11-05 15:25 | XMS_ITS | Clinical Summary ---
Author Organization [facility] Address [address] [place] [address] Care Team Providers Care Mechanical Inspector Name Role Phone Tommie Archuleta MD Primary Care Provider [phone] Source Comments [facility] [employer],non-owned Affiliates and Associated Physician Practices is amultiple site organization consisting of ambulatory clinics and hospital sitesin [place], [place], [place] and [place]. This disclosure is being madepursuant to the Care Everywhere program and may not contain all information available regarding this patient. 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
== END 2024-11-05 14:56 | disposition home or self-care (01) ==
LOC: CHSIMG 14:57
PROVIDERS: PCP Internal Medicine; Visit Provider Internal Medicine
DX: R06.02 Shortness of breath (principal); R01.1 Cardiac murmur, unspecified; I27.20 Pulmonary hypertension, unspecified; I35.8 Other nonrheumatic aortic valve disorders; I51.7 Cardiomegaly
CPT/HCPCS: 93306

== ENCOUNTER 2024-12-26 19:10 | Emergency (ER) | payer OTHER, SELFPAY ==
[2024-12-26] VITALS (11 sets, daily range): BP systolic 116–150; BP diastolic 48–71; PULSE 95–108; RESP 16–24; TEMP 36.1; O2SAT 95–100
--- NOTE | ~2024-12-26 | CT_ITS ---
EXAMINATION: CT abdomen pelvis wo con DATE: 12/26/2024 19:54 INDICATION: Abdominal pain TECHNIQUE: Computed tomography (CT) of the abdomen and pelvis was performed without intravenous contrast. Automated exposure control and iterative reconstruction technique were employed. The dose-length product was 495.71 mGy-cm. COMPARISON: None FINDINGS: Mild emphysema and mild dependent atelectasis in the visualized lower lungs. Additional atelectasis at the anterobasilar right middle lobe and lingula. Borderline heart size. Catheter scar coronary artery calcifications and aortic valve calcific location. No pericardial or pleural effusion. Moderate-sized sliding-type hiatal hernia. Cholecystectomy clips at gallbladder fossa. Liver, spleen, pancreas, bilateral adrenal glands and kidneys are normal. Decompressed bladder is unremarkable. The uterus is not identified and has likely been surgically resected. There is mild colonic wall thickening with inflammatory stranding centered at the splenic flexure the colon consistent with colitis. This liquid stool in the proximal colon consistent with nonspecific diarrhea. The appendix is not visualized. No pericecal inflammatory change to suggest acute appendicitis. Small bowel is normal with no obstruction. No free intraperitoneal gas or fluid. No pathologically enlarged abdominal or pelvic lymphadenopathy. There is calcified atherosclerosis of the aorta and many of the other arteries. Fusiform ectasia along the infrarenal aorta measuring up to 2.9 cm in maximal diameter. Severe lower thoracic and mild to moderate lumbar spondylosis. Chronic-appearing T11 compression fracture with 20% anterior vertebral body height loss. IMPRESSION: 1. Colonic wall thickening and inflammatory stranding centered at the splenic flexure the colon consistent with colitis which could be infectious, inflammatory or ischemic in etiology, the latter potentially in the setting of hypotension given the location at the vascular watershed zone of the colon. 2. Moderate-sized sliding-type hiatal hernia. Reviewed, dictated and finalized at location A. IMPRESSION: 1. Colonic wall thickening and inflammatory stranding centered at the splenic f lexure the colon consistent with colitis which could be infectious, inflammator y or ischemic in etiology, the latter potentially in the setting of hypotension given the location at the vascular watershed zone of the colon. 2. Moderate-sized sliding-type hiatal hernia.
--- NOTE | 2024-12-26 19:27 | ECG_ITS ---
Test Date: 2024-12-26 20:33:10 Measurements Intervals [place] Rate: 96 P: 48 GA: 153 QRS: -14 QRSD: 88 T: 100 QT: 337 QTc: 427 Interpretive Statements SINUS RHYTHM POSSIBLE LEFT ATRIAL ENLARGEMENT INCOMPLETE RIGHT BUNDLE BRANCH BLOCK LEFT VENTRICULAR HYPERTROPHY AND ST-T CHANGE MINIMAL Q WAVES- HIGH LATERAL LEADS BORDERLINE ST-T WAVE ABNORMALITY- ANTEROLAT/INF LEADS BORDERLINE ECG No previous ECG available for comparison Electronically Signed On 12-27-2024 06:16:56 CDT by Og Tavarez D.O.
[2024-12-26] MEDS: MORPHINE SULFATE (*CRX) 4 MG/ML INJ IV PUSH (19:40)
[2024-12-26] MEDS: ONDANSETRON INJ 4 MG/2 ML VIAL IV PUSH (19:40)
[2024-12-26] MEDS: SODIUM CHLORIDE 0.9% IV 1,000 ML 999 ML IV CONT (19:41)
--- NOTE | 2024-12-26 19:43 | PC.NURSE ---
TRANSPORTED TO CT VIA STRETCHER
--- NOTE | 2024-12-26 20:05 | PC.NURSE ---
LAB AT THE BEDSIDE. NS INFUSING TO RIGHT AC WITHOUT DIFFICULTY.
--- NOTE | 2024-12-26 20:18 | PC.NURSE ---
URINE TAKEN DOWN TO LAB
[2024-12-26 20:22] LABS: Hematocrit 28.0 % (35.0-42.0); Hemoglobin 7.1 g/dL (11.7-13.8); Immature Granulocyte Percent A 0.4 % (0.0-0.0); Lymphocytes Absolute Auto 0.46 K/mm3 (1.10-4.50); Mean Corpuscular HGB Conc 25.4 g/dL (32-36); Mean Corpuscular Hemoglobin 15.5 pg (27.0-31.0); Mean Corpuscular Volume 61.1 fL (78.0-102.0); Nucleated Red Blood Cells Absolute Auto 0.08 K/mm3 (0.00-0.00); Nucleated Red Blood Cells Perc 0.5 % (0-0.0); Platelet Count Result 473 K/mm3 (150-420); Red Blood Count 4.58 M/mm3 (4.20-5.40); White Blood Count 16.1 K/mm3 (4.8-10.8)
[2024-12-26 20:27] LABS: Alanine Aminotransferase 20 U/L (6-35); Albumin Level 4.3 g/dL (3.5-5.1); Alkaline Phosphatase 218 U/L (38-126); Anion Gap 14 mmol/L (4-12); Aspartate Amino Transferase 41 U/L (14-36); Bilirubin,Total 0.4 mg/dL (0.2-1.3); Blood Urea Nitrogen 54 mg/dL (7-17); Calcium 9.1 mg/dL (8.4-10.2); Carbon Dioxide 21 mmol/L (22-30); Chloride 105 mmol/L (98-107); Estimated CRCL calculation 19 ml/min; Estimated Glomerular Filt Rate 18; Glucose 136 mg/dL (65-110); Lipase 153 U/L (23-300); Osmolality Calculated 306 mOsm/kg (285-295); Potassium 4.5 mmol/L (3.4-5.0); Sodium 140 mmol/L (137-145); Total Protein 8.1 g/dL (6.3-8.2)
[2024-12-26 20:30] LABS: INR 1.0; Partial Thromboplastin Time 24.2 Sec (23.9-30.70); Prothrombin Time 10.6 Seconds (9.50-12.1)
[2024-12-26 20:37] LABS: Add Urine Microscopic? YES; Appearance Urine Clear (Clear); Glucose Urine UA Negative (Negative); Leukocyte Esterase Ur Negative LEU/UL (Negative); Nitrate Urine Negative (Negative); Specific Grav Ur 1.025 (1.010-1.020)
[2024-12-26 20:40] LABS: Troponin I 0.061 ng/mL (0.000-0.034)
--- NOTE | 2024-12-26 20:46 | PC.NURSE ---
CRITICAL LAB VALUE FOR TROPONIN RECEIVED. PLACED ON PERIOPERATIVE ASSISTANT. PATIENT REPORTS THAT HE PAIN IS NOT BETTER. REQUESTING MORE PAIN MEDICATION. DR PAT NOTIFIED
[2024-12-26] MEDS: HYDROmorphone HCL INJ (*CRX) 2 MG/ML VIAL 1 MG IV PUSH (20:48)
[2024-12-26] MEDS: levoFLOXacin 500 MG/D5W 100 ML 500 MG/100 ML BAG 100 MG IVPB (21:17)
--- NOTE | 2024-12-26 21:45 | ED.ABDPAIN ---
HPI - Abdominal Pain General Chief Complaint: Abdominal Pain Stated Complaint: side pain Time Seen by Provider: 12/26/24 19:27 Source: patient and family Mode of arrival: ambulatory Limitations: no limitations History of Present Illness HPI narrative: this is a 64-year-old female with history of COPD, hypertension, hyperlipidemia with severe abdominal pain rates it a 10/10 diffuse in location with no dysuria no nausea vomiting no chest pain or shortness of breath no diarrhea does have patient states constipation. No recent alcohol use no antibiotic use. Patient's abdominal pain started approximately couple of days of go but has worsened over the last few hours and presents to the emergency department. She has no nausea or vomiting no fever chills. MD elicited complaint: abdominal pain Pertinent past history: constipation Onset (ago): day(s) Pain Consistency: constant Location: diffuse Severity: severe Pain scale (0-10): 10 Quality: aching and sharp Related Data Home Medications ?Medication ?Instructions ?Recorded ?Confirmed ?Last Taken ?Type lisinopril 20 mg tablet 10 mg PO HS 11/03/19 12/03/22 Unknown History simvastatin 10 mg tablet 10 mg PO DAILY 11/03/19 12/03/22 Unknown History Allergies Allergy/AdvReac Type Severity Reaction Status Date / Time Penicillins Allergy Intermediate Hives Verified 12/26/24 19:43 trimethobenzamide (Tigan) Allergy Intermediate Vomiting Verified 12/26/24 19:43 varenicline (Chantix) Allergy Intermediate Vomiting Verified 12/26/24 19:43 NSAIDS (Non-Steroidal Allergy Mild abdominal Verified 12/26/24 19:43 Anti-Inflamma pain PENICILLIN Allergy Hives Uncoded 12/03/22 12:12 TRIMETHOBENZAMIDE HCL Allergy Unknown Uncoded 12/03/22 12:12 Review of Systems Review of Systems: All systems reviewed & are unremarkable except as noted in HPI and below PMFSH Past Medical History Medical History Emphysema lung Hyperlipidemia Hypertension Family History Family History Father Family history of type 2 diabetes mellitus Hypertension Mother Hypertension Sibling No problems noted. Social History Social History Smoking status: Current every day smoker Gender identity (if verbalized by the patient): Female Exam Const: General: ill appearing Nutritional Appearance: obese Orientation/consciousness: patient oriented x3 Limitations: no limitations Neck: Neck: normal visual inspection, no lymphadenopathy and no meningeal signs Chest: Chest palpation & inspection: normal inspection of the chest Resp: Effort & Inspection: normal respiratory effort Auscultation: clear to auscultation bilaterally Cardio: Rate: regular rate Rhythm: regular rhythm GI: GI Palp: Yes Tenderness to palpation present (GI) Auscultation: Hypoactive bowel sounds present Back/Spine/Pelvis: Back: no CVA tenderness Skin: General skin exam: normal color Rashes: no rashes Neuro: General: patient oriented x3, moves all extremities and no meningeal signs Course Course Emergency Course: Medical decision-making aerated: Patient was evaluated by myself in the present in the ED, history obtained from the patient and who is at the bedside and physical exam performed and witnessed by nurse Celeste. External records medical were reviewed at this time. Repeat assessment patient had received 4mg IV morphine and 1mg Dilaudid and there is currently no acute distress pain level has improved slightly. Symptoms improved since arrival to the ER Repeat vitals are stable. Patient had a CT scan which we abdomen and pelvis which shows colitis that could be infectious versus even at, [place] a [place] [address] with an H&H of 7.1 and 28 platelets of 473, BUN is 54 creatinine 2.63, last year in February 10 creatinine was 0.88, glucose of 136 troponin was elevated at 0.061, with EKG which shows no acute ST or T elevations. Patient had UA showed 2+ bacteria, lactic acid of 1.7 with normal lipase. Patient and family agree with discussion after shared medical decision making agree with transfer to a facility with higher level of care. All questions were answered the patient and family's satisfaction. Spoke to hospitalist and surgeon at [facility] that accepted patient for transfer. Vital Signs Vital signs: Vital Signs Temperature 36.1 C L 12/26/24 19:14 Pulse Rate 108 H 12/26/24 19:14 Respiratory Rate 24 H 12/26/24 19:14 Blood Pressure 130/70 12/26/24 19:14 Pulse Oximetry 99 12/26/24 19:14 Oxygen Delivery Room Air 12/26/24 19:14 Temperature 36.1 C L 12/26/24 19:14 Pulse Rate 98 12/26/24 21:31 Respiratory Rate 17 12/26/24 21:31 Blood Pressure 129/71 12/26/24 21:31 Pulse Oximetry 99 12/26/24 21:31 Oxygen Delivery Room Air 12/26/24 21:31 MDM - Abdominal Pain Lab Data 12/26/24 20:08 12/26/24 20:08 Labs: Lab Results 12/26/24 12/26/24 Range/Units 20:08 20:17 WBC 16.1 H (4.8-10.8) K/mm3 RBC 4.58 (4.20-5.40) M/mm3 Hgb 7.1 L (11.7-13.8) g/dL Hct 28.0 L (35.0-42.0) % MCV 61.1 L (78.0-102.0) fL MCH 15.5 L (27.0-31.0) pg MCHC 25.4 L (32-36) g/dL RDW 20.6 H (11.6-14.4) % Plt Count 473 H (150-420) K/mm3 MPV 8.9 L (9.2-11.8) fl Immature Gran % (Auto) 0.4 H (0.0-0.0) % Neut % (Auto) 91.9 H (50.0-70.0) % Lymph % (Auto) 2.9 L (18.0-42.0) % [place] % (Auto) 4.5 (2.0-11.0) % Eos % (Auto) 0.1 L (1.0-6.0) % Baso % (Auto) 0.2 (0.0-1.0) % Lymph # (Auto) 0.46 L (1.10-4.50) K/mm3 [place] # (Auto) 0.72 (0.10-0.90) K/mm3 Eos # (Auto) 0.01 L (0.02-0.50) K/mm3 Baso # (Auto) 0.04 (0.00-0.10) K/mm3 Abs Immat Gran (auto) 0.06 H (0.00-0.00) K/mm3 Absolute Neuts (auto) 14.85 H (1.70-7.20) K/mm3 Absolute Nucleated RBC 0.08 H (0.00-0.00) K/mm3 Nucleated RBC % 0.5 H (0-0.0) % PT 10.6 (9.50-12.1) Seconds INR 1.0 APTT 24.2 (23.9-30.70) Sec Sodium 140 (137-145) mmol/L Potassium 4.5 (3.4-5.0) mmol/L Chloride 105 (98-107) mmol/L Carbon Dioxide 21 L (22-30) mmol/L Anion Gap 14 H (4-12) mmol/L BUN 54 H (7-17) mg/dL Creatinine 2.63 H (0.7-1.0) mg/dL Estim Creat Clear Calc 19 ml/min Estimated GFR 18 L (59 - ) Glucose 136 H (65-110) mg/dL Calculated Osmolality 306 H (285-295) mOsm/kg Lactic Acid 1.7 (0.4-2.0) mmol/L Calcium 9.1 (8.4-10.2) mg/dL Total Bilirubin 0.4 (0.2-1.3) mg/dL AST 41 H (14-36) U/L ALT 20 (6-35) U/L Alkaline Phosphatase 218 H (38-126) U/L Troponin I 0.061 H* (0.000-0.034) ng/mL Total Protein 8.1 (6.3-8.2) g/dL Albumin 4.3 (3.5-5.1) g/dL Lipase 153 (23-300) U/L Urine Color Dark yellow (Yellow) Urine Appearance Clear (Clear) Urine pH 5.0 (5.0-8.0) Ur Specific [place] 1.025 H (1.010-1.020) Urine Protein 2+ H (Negative) Urine Glucose (UA) Negative (Negative) Urine Ketones Trace H (Negative) Ur Blood (Man) Negative (Negative) Urine Nitrate Negative (Negative) Urine Bilirubin 2+ H (Negative) Urine Urobilinogen 1.0 (0.2-1.0) mg/dL Leukocyte Esterase Rfl Negative (Negative) LOREE/UL Urine RBC 0-2 (0-2) /hpf Urine WBC 0-3 (0-3) /hpf Ur Squamous Epith Cells Moderate H (Few) /hpf Urine Bacteria 2+ H (None) /hpf Imaging Data Radiologist's impression: ITS Impressions Abdomen/Pelvis CT 12/26/24 20:06 IMPRESSION: 1. Colonic wall thickening and inflammatory stranding centered at the splenic flexure the colon consistent with colitis which could be infectious, inflammatory or ischemic in etiology, the latter potentially in the setting of hypotension given the location at the vascular watershed zone of the colon. 2. Moderate-sized sliding-type hiatal hernia. Critical Care Time Critical Care Time Critical Care Time: No Discharge Plan Discharge Clinical Impression: Colitis, Elevated troponin Abdominal pain Qualifiers: Abdominal location: generalized Qualified Code(s): R10.84 - Generalized abdominal pain Acute renal failure Qualifiers: Acute renal failure type: unspecified Qualified Code(s): N17.9 - Acute kidney failure, unspecified Patient Disposition: Acute Care Hospital Condition: Guarded Prognosis Patient Language: Latvian Prescriptions: No Action azithromycin [Zithromax] 250 mg tablet See Rx Instructions .ROUTE .COMPLEX Qty: 6 0RF Rx Instructions: For 250 mg dose pack: take 500 mg today (day 1), then 250 mg for 4 days (days 2-5) lisinopril 20 mg tablet 10 mg PO HS simvastatin 10 mg tablet 10 mg PO DAILY Zyrtec 10 mg capsule 10 mg PO BID PRN (Reason: allergy symptoms) Qty: 30 0RF prednisone 20 mg tablet 40 mg PO DAILY 5 Days Qty: 10 0RF clindamycin HCl [Cleocin HCl] 150 mg capsule 450 mg PO Q8H 10 Days Qty: 90 0RF Follow-up/Referrals: Sumit Caballero MD [Primary Care Provider, Internal Medicine]
--- NOTE | 2024-12-26 21:51 | PC.NURSE ---
HAS RETURNED TO THE BEDSIDE. UPDATED ON CURRENT DIAGNOSIS AND REASON FOR TRANSFER. VERBALIZED UNDERSTANDING.
--- NOTE | 2024-12-26 22:26 | PC.NURSE ---
PATIENT APPEARS TO BE SLEEPING. RESP EVEN AND UNLABORED. CALL LIGHT IN REACH. WAS NOTIFIED OF ACCEPTANCE TO MEDICINE [facility] IN [place]. VERBALIZED UNDERSTANDING.
--- NOTE | 2024-12-26 23:22 | PC.NURSE ---
RESTING QUIETLY ON STRETCHER. RESP EVEN AND UNLABORED. CALL LIGHT IN REACH. AT THE BEDSIDE. CONTINUE TO WAIT FOR BED ASSIGNMENT FROM [facility] IN [facility]
[2024-12-26 23:38] LABS: Troponin I 0.044 ng/mL (0.000-0.034)
[2024-12-27 00:15] VITALS: PULSE 98; RESP 20; O2SAT 92
[2024-12-27 00:30] VITALS: PULSE 97; RESP 20; O2SAT 94
[2024-12-27 01:00] VITALS: BP 113/61; PULSE 78; RESP 18; TEMP 37; O2SAT 99
[2024-12-27] MEDS: HYDROmorphone HCL INJ (*CRX) 2 MG/ML VIAL IV PUSH (01:17)
[2024-12-27 01:20] VITALS: BP 113/61; PULSE 78; RESP 18; TEMP 37; O2SAT 99
--- NOTE | 2024-12-30 13:09 | PC.NURSE ---
preliminary blood culture results x2: no growth in 24 hrs received aerobic bottle only(LC)
--- NOTE | 2024-12-31 13:41 | PC.NURSE ---
blood, preliminary, no growth
--- NOTE | 2025-01-03 12:52 | PC.NURSE ---
FINAL BLOOD CULTURE REPORT; NO GROWTH IN 5 DAYS
== END 2024-12-27 01:20 | disposition short-term general hospital (02) ==
PROVIDERS: Emergency Provider Emergency Medicine; PCP Internal Medicine
DX: K52.9 Noninfective gastroenteritis and colitis, unspecified (principal); N17.9 Acute kidney failure, unspecified; R10.84 Generalized abdominal pain; J44.9 Chronic obstructive pulmonary disease, unspecified; I10 Essential (primary) hypertension; E78.5 Hyperlipidemia, unspecified; F17.200 Nicotine dependence, unspecified, uncomplicated
CPT/HCPCS: 36415; 74176; 80053; 81001; 83605; 83690; 84484; 85025; 85610; 85730; 87040; 93005; 96361; 96365; 96374; 96375; 99285; J1171; J1956; J2270; J2405; J7030

== ENCOUNTER 2025-01-07 22:38 | Emergency (ER) | payer OTHER, SELFPAY ==
--- OUTSIDE RECORDS SUMMARY | 2014-07-04 03:28 | XMS_ITS | Continuity of Care Document ---
Author Organization [facility] Address [address] [facility] [address] [place] [address] Phone Care Team Providers Care Compensation Programs Manager Name Role Phone Roni Courtney MD [...] Diagnoses Date Provider Providers Copied on Encounter [facility], [address], [facility], tel:[phone] [facility] No Information 5 Roz Tamayo. 1 [place], [place], [address]. tel:[phone] OFFICE/OUTPAT IENT VISIT EST [facility], [address], [address], tel:[phone] [facility] f/u mri (chief complaint) Disorder of bursae and tendons in shoulder regionOther affections of shoulder region, not elsewhere classified 5 Roz Tamayo. 621 [place], [place], [address]. tel:[phone] OFFICE/OUTPAT IENT VISIT [facility], [address] [facility], [place], [address], [place] tel:[phone] [facility] Disorder of bursae and tendons in shoulder region Teresa. [address] [facility] [address], [place], [place], [address]. tel:[phone] Family History Family Member Type Diagnosis Age [...]
--- OUTSIDE RECORDS SUMMARY | 2014-07-04 03:28 | XMS_ITS | Continuity of Care Document ---
Author Organization [facility] Address [address] [facility] [address] [place] [address] Phone Care Team Providers Care Detonator Maker Name Role Phone Roni Courtney MD Unavailable [...] Diagnoses Date Provider Providers Copied on Encounter [facility], [address], [facility], tel:[phone] [facility] No Information 5 Roz Tmaayo. 1 [place], [place], [address]. tel:[phone] OFFICE/OUTPAT IENT VISIT EST [facility], [address], [address], tel:[phone] [facility] f/u mri (chief complaint) Disorder of bursae and tendons in shoulder regionOther affections of shoulder region, not elsewhere classified 5 Roz Tamayo. 621 [place], [place], [address]. tel:[phone] OFFICE/OUTPAT IENT VISIT [facility], [address] [facility], [place], [address], [place] tel:[phone] [facility] Disorder of bursae and tendons in shoulder region Teresa. [address] [facility] [address], [place], [place], [address]. tel:[phone] Family History Family Member Type Diagnosis Age [...]
--- NOTE | ~2025-01-07 | CT_ITS ---
EXAMINATION: CT abdomen pelvis w con DATE: 01/08/2025 00:35 INDICATION: Abdominal pain. TECHNIQUE: Computed tomography (CT) of the abdomen and pelvis was performed with 100 mL Omnipaque 350 intravenous contrast. Automated exposure control and iterative reconstruction technique were employed. The dose-length product was 416.57 mGy-cm. COMPARISON: CT abdomen and pelvis 12/26/2024, chest CT 08/23/2018 FINDINGS: The visualized portions of lung bases demonstrate emphysema and mild atelectasis. No pleural effusion. The heart size is normal. There are coronary artery calcifications. No pericardial effusion. There is a small sliding hiatal hernia. The liver is normal. 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 There are changes of cholecystectomy. The pancreas, adrenal glands, and kidneys are normal. There is an end colostomy on the left with bowel wall thickening, consistent with inflammation. There is a long Mayo pouch. The appendix is not visualized. There are no dilated loops of bowel. 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 There is a 17 mm saccular aneurysm of right common iliac artery. There are no pathologically enlarged lymph nodes. There is no free intraperitoneal fluid. There is a midline incision with skin kristi anteriorly. There is severe thoracic spondylosis and mild lumbar spondylosis. IMPRESSION: 1. New colostomy with bowel wall thickening, consistent with inflammation. 2. 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 3. 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 4. Small sliding hiatal hernia. Reviewed, dictated and finalized at location E. IMPRESSION: 1. New colostomy with bowel wall thickening, consistent with inflammation. 2. 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 3. Saccular aneurysms of infrarenal aorta and the bilateral common iliac arteri es again seen. 4. Small sliding hiatal hernia.
--- OUTSIDE RECORDS SUMMARY | 2025-01-07 13:15 | XMS_ITS | Encounter Summary ---
Author Organization [facility] Address [address] [place] [address] Care Team Providers Care Division Operations Specialist Name Role Phone Sumit Caballero MD Primary Care Provider [phone] Encounter Details Date Type Department Care Team (Late st Contact Info) Description 01/07/2025 1:15 PM CDT Home Care Visit [facility] Home Care [facility] [address] [place] [address] Maribel Sagastume, RN [phone] (Work) SN NON ADMIT SOC Social History Tobacco Use Types Packs/Day Years Used Date Smoking Tobacco: Every Day Cigarettes Smokeless Tobacco: Current [facility] Utilities Answer Date Recorded In the past 12 months has [facility] [employer], gas, oil, or water [employer] threatened to shut off services in your [...] any time in the past 12 m [facility], were you homeless or living in a long-term (including now)? No 12/27/2024 Comments No Sex [...] Info) Description 01/08/2025 8:45 AM CDT Appointment [facility] Home Care [facility] [address] [place] [address] Artie Moulton RN documented as of this encounter Visit Diagnoses Not on filedocumented in this encounter Care Teams Division Operations Specialist Relationship Specialty Start Date End Date Sumit Caballero MD [address] [place] [address] PCP - General INTERNAL MEDICINE 11/30/18 documented as of this encounter
--- OUTSIDE RECORDS SUMMARY | 2025-01-07 13:15 | XMS_ITS | Encounter Summary ---
Author Organization [facility] Address [address] [place] [address] Care Team Providers Care Commercial Real Estate Attorney Name Role Phone Sumit Caballero MD Primary Care Provider [phone] Encounter Details Date Type Department Care Team (Late st Contact Info) Description 01/07/2025 1:15 PM CDT Home Care Visit [facility] Home Care [facility] [address] [place] [address] Maribel Sagastume, RN [phone] (Work) SN NON ADMIT SOC Social History Tobacco Use Types Packs/Day Years Used Date Smoking Tobacco: Every Day Cigarettes Smokeless Tobacco: Current [facility] Utilities Answer Date Recorded In the past 12 months has [facility] [employer], gas, oil, or water [employer] threatened to shut off services in your [...] any time in the past 12 m [facility], were you homeless or living in a residential (including now)? No 12/27/2024 Comments No Sex [...] Info) Description 01/08/2025 8:45 AM CDT Appointment [facility] Home Care [facility] [address] [place] [address] Artie Moulton RN documented as of this encounter Visit Diagnoses Not on filedocumented in this encounter Care Teams Commercial Real Estate Attorney Relationship Specialty Start Date End Date Sumit Caballero MD [address] [place] [address] PCP - General INTERNAL MEDICINE 11/30/18 documented as of this encounter
[2025-01-07 22:40] VITALS: BP 134/55; PULSE 82; RESP 15; TEMP 36.4; O2SAT 97
--- OUTSIDE RECORDS SUMMARY | 2025-01-07 22:41 | XMS_ITS | Clinical Summary ---
Author Organization [facility] Address [address] [place] [address] Care Team Providers Care Android Architect Name Role Phone Tommie Arcuhleta MD Primary Care Provider [phone] Source Comments [facility],non-owned Affiliates and Associated Physician Practices is amultiple site organization consisting of ambulatory clinics and hospital sitesin [place], [place], [place] and [place]. This disclosure is being madepursuant to the Care Everywhere program and may not contain all information available regarding this patient. Last updated 17.[facility] Social History Tobacco Use Types Packs/Day Years Used Date Smoking Tobacco: Never Assessed Comments Unknown Sex and Gender Information Value Date Recorded Sex Assigned at Not on file Legal Sex Female 6:21 AM EQUIPMENT INSTALLATION PROFESSIONAL Gender Identity Not on file Sexual Orientation [...] 2009 ZOSTER VACCINE (1 of 2) 2009 DEPRESSION SCREENING 03/20/2024 COVID-19 VACCINE (1 - 2023-2 5 season) 2024 INFLUENZA VACCINE (#1) 2024 Respiratory Syncytial Virus [...] patient's age to complete this topic Insurance [facility] Care Teams Android Architect Relationship Specialty Start Date End Date Tommie Archuleta MD [address] [place] [address] PCP - General 05/21/18
--- OUTSIDE RECORDS SUMMARY | 2025-01-07 22:41 | XMS_ITS | Clinical Summary ---
Author Organization [facility] Address [address] [place] [address] Care Team Providers Care Cryptography Teacher Name Role Phone No, Physician Primary Care Provider [phone] Saroj Solano MD Unavailable [phone] Allergies Active Allergy Reactions Criticality Noted Date [...] Comments Hx Other Medical Cholecystectomy 2012; Comments: J 05/06/2014 - Hx Other Medical Nose surg. 2009 .; Comments: J 05/06/2014 - Hx Other Medical Rotator cuff meng rg. 2014.; Comments: J 05/06/2014 - Hx Other Medical Brain surg. 200 0.; Comments: [facility] 05/06/2014 - Cancer (HCC) Family History Medical History Relation Name Comments Diabetes Father Family history of diabetes mellitus - (Added by TW Conv) Hypertension Father Family history of hypertension - (Added by Conv) Kidney disease Father Family histor y of kidney disease - (Added by Conv) Thyroid disease Father Family histo ry of thyroid disease - (Added by Conv) Hypertension Mother Family history of hypertension - (Added by Conv) Relation Name Status Comments Father Mother Social History Tobacco Use Types Packs/Day Years Used Date Smoking Tobacco: Never Smokeless Tobacco: Never Alcohol Use Standard Drinks/Week Comments Not Currently 0 (1 standard drink = 0.6 oz pur e alcohol) Comments Unknown Sex and Gender Information Value Date Recorded Sex Assigned at Not on file Legal Sex Female 1:38 AM LOGISTICS SYSTEM ENGINEER Gender Identity Not on file Sexual Orientation Not on file Obstetrics History Last Filed Vital Signs Vital Sign Reading Time Taken Comments Blood Pressure 181/96 05/24/2019 11:30 AM LOGISTICS SYSTEM ENGINEER Pulse 92 05/24/2019 11:30 AM LOGISTICS SYSTEM ENGINEER Temperature - - Respiratory Rate - - Oxygen Saturation - - Inhaled Oxygen Concentration - - Weight 78 kg (172 lb) 05/24/2019 11:30 AM LOGISTICS SYSTEM ENGINEER Height 171.5 cm (5' 7.5) 05/24/2019 11:30 AM CS T Body Mass Index 26.54 05/24/2019 11:30 AM LOGISTICS SYSTEM ENGINEER Plan of Treatment Not on file Insurance [facility] [employer] Care Teams Cryptography Teacher Relationship Specialty Start Date End Date No, Physician PCP - General 04/18/19 Saroj Solano MD Family Medicine 04/18/19
--- OUTSIDE RECORDS SUMMARY | 2025-01-07 22:41 | XMS_ITS | Clinical Summary ---
Author Organization [facility] Address [address] [place] [address] Care Team Providers Care Marking Stitcher Name Role Phone Sumit Caballero MD Primary Care Provider [phone] Allergies Active Allergy Reactions Criticality Noted Date Comments Penicillins Hives Low 11/30/2018 Pt has tolerated cefuroxime (07/2024), cefepime (12/2024) Trimethobenzamide Itching Medium 11/30/2018 Medications albuterol sulfate HFA (VENTOLIN HFA) 108 (90 Base) MCG/ACT inhaler Inhale 1-2 puffs into the lungs. 07/15/19 17 Active simvastatin 20 MG tablet Take 1 tablet (20 mg total) by mouth. 09/27/19 13 Active oxyCODONE-acet aminophen (PERCOCET) 5-325 MG tabletIndicati ons:Acute Pain < 7 Day Supply Take 1 tablet by mouth every 8 (eight) hours as needed. Indications: Acute Pain < 7 Day Supply 21 tablet 01/06/20 25 Active celecoxib (CELEBREX) 100 MG capsuleIndicat ions:Acute Pain < 7 Day Supply Take 1 capsule (100 mg total) by mouth 2 (two) times daily for 30 doses. Indications: Acute Pain < 7 Day Supply 30 capsule 01/06/20 25 025 Active gabapentin (NEURONTIN) 100 MG capsuleIndicat ions:Acute Pain < 7 Day Supply Take 1 capsule (100 mg total) by mouth 3 (three) times daily for 14 days. Indications: Acute Pain < 7 Day Supply 42 capsule 01/06/20 25 Active lisinopril (PRINIVIL) 20 MG tabletIndicati ons:Hypertensi on Take 1 tablet (20 mg total) by mouth daily. Indications: High Blood Pressure 90 tablet 3 01/07/20 25 026 Active metoprolol tartrate (LOPRESSOR) 25 MG tabletIndicati ons:Hypertensi on Take 1 tablet (25 mg total) by mouth 2 (two) times daily. Indications: High Blood Pressure 60 tablet 2 01/06/20 25 Active hydroCHLOROthi azide (MICROZIDE) 12.5 MG capsuleIndicat ions:Hypertens ion Take 1 capsule (12.5 mg total) by mouth daily. Indications: High Blood Pressure 30 capsule 2 01/07/20 25 Active naloxone (NARCAN) 4 MG/0.1ML nasal sprayIndicatio ns:Narcotherap y 1 spray by Nasal route as needed for Opioid reversal. Indications: Psychotherapy Using Sedatives or Narcotics may repeat every 2 to 3 minutes in alternating nostrils until medical assistance becomes available 1 each 01/06/20 Active clindamycin (CLEOCIN) 300 MG capsule Take 1 capsule (300 mg total) by mouth 4 (four) times daily. 12/29/19 Discontin ued(Error ) diclofenac EC (VOLTAREN) 50 MG tablet Take 1 tablet (50 mg total) by mouth 2 (two) times daily. 01/08/20 Discontin ued(Stop Taking at Discharge ) famotidine (PEPCID) 40 MG tablet Take 1 tablet (40 mg total) by mouth 2 (two) times daily as needed. Discontin ued(Stop Taking at Discharge ) hydroCHLOROthi azide (MICROZIDE) 12.5 MG tablet Take 1 tablet (12.5 mg total) by mouth every morning. 11/27/19 Discontin ued(Stop Taking at Discharge ) oxyCODONE-acet aminophen (PERCOCET) 10-325 MG tablet Take 1 tablet by mouth every 6 (six) hours as needed. 05/14/19 15 Discontin ued(Stop Taking at Discharge ) Active Problems Problem Noted Date Diagnosed Date Colitis 12/27/2024 Elevated troponin 12/27/2024 Sepsis 12/27/2024 Anemia 12/27/2024 KARLEY (acute kidney injury) 12/27/2024 Ischemic colitis 12/27/2024 Chronic pain 05/09/2017 History of brain surgery 02/03/2015 Tobacco use 05/06/2014 Overview (12/27/2024): Tobacco use Chronic obstructive pulmonary disease 01/08/2013 Hyperlipidemia 01/08/2013 Hypertension 01/08/2013 Overview (12/27/2024): Hypertension Irritable bowel syndrome 01/08/2013 Gastroesophageal reflux disease 09/13/2011 Abdominal pain 06/17/2010 Nicotine dependence 06/02/2010 Encounters Date Type Department Care Team Description 01/07/2025 1:15 PM CDT Home Care Visit [facility] [address] [place] [address] Maribel Sagastume RN SN NON ADMIT SOC 12/28/2024 12:34 PM CDT Anesthesia [facility] [address] [place] [address] Kaushik Burleson MD 12/28/2024 11:25 AM CDT - 12/28/2024 3:16 PM CDT [facility] [address] [place] [address] Niru Diaz, DO RE-LOOK LAPAROTOMY with creation of end colostomy 12/27/2024 6:23 AM CDT Anesthesia Event [facility] [address] [place] [address] Shan Mittal MD Lajeunesse, Kaylie, CRNA 12/27/2024 5:55 AM CDT - 12/27/2024 7:47 AM CDT [facility] [address] [place] [address] Niru Diaz, DO LAPAROTOMY EXPLORATORY WITH MOBILIZATION OF SPLENIC FLEXURE AND DESCENDING COLON RESECTION, ABTHERA WOUND VAC PLACEMENT 12/27/2024 2:43 AM CDT - 01/05/2025 3:46 PM CDT Hospital Encounter [facility] [address] [place] [address] Angel Gonzalez MD Imam, Syed M, DO Zhen, Daniel P, MD Gowda, Chetan N, MD Discharge Disposition: Home or Self Care (Routine Discharge) 12/27/2024 Travel from Last 3 Months Social History Tobacco Use Types Packs/Day Years Used Date Smoking Tobacco: Every Day Cigarettes Smokeless Tobacco: Current Tobacco Cessation:Ready to Q uit: Not Asked; Counseling Given: Not Answered [facility] [employer] Answer Date Recorded In the past 12 months has e electric, gas, oil, or water company threatened to shut off services in your [...] any time in the past 12 m [facility], were you homeless or living in a senior living (including now)? No 12/27/2024 Comments No Sex and Gender Information Value Date Recorded Sex Assigned at Female 12/27/2024 3:39 AM CDT Legal Sex Female 1:27 AM CDT Gender Identity Female 12/27/2024 3:39 AM CDT Sexual Orientation Not on file Last Filed Vital Signs Vital Sign Reading Time Taken Comments Blood Pressure 163/51 01/05/2025 11:21 AM CDT Pulse 76 01/05/2025 11:21 AM CDT Temperature 36.7 C (98.1 F) 01/05/2025 11:21 AM CDT Respiratory Rate 19 01/05/2025 11:21 AM CDT Oxygen Saturation 96% 01/05/2025 11:21 AM CDT Inhaled Oxygen Concentration - - Weight 170 kg (374 lb 12.5 oz) 01/05/2025 8:00 A M CDT Height 170.2 cm (5' 7) 12/27/2024 3:37 AM CDT Body Mass Index 58.7 12/27/2024 3:37 AM CDT Plan of Treatment Upcoming Encounters Date Type Department Care Team (Late st Contact Info) Description 01/08/2025 8:45 AM CDT Appointment [facility] Home [facility] [address] [place] [address] Artie Moulton RN Health Maintenance Due Date Last Done Comments Hepatitis C 1977 DTaP, Tdap and Td Vaccines ( 1 - Tdap) 1978 Zoster Vaccines (1 of 2) 2009 Pneumococcal Vaccine: 50+ Years (2 of 2 - PCV) 12/06/2012 12/07/2011 Mammogram Screening 11/30/2018 11/30/2016 RSV Immunization or 60+ Years (1 - Risk 60-74 years 1-dose series) 2019 Colorectal Cancer Screening Colonoscopy (10 Years) 03/20/2019 03/20/2009 Dexa Scan (General) 02/17/2024 COVID-19 Vaccine (2024-2 6 season) 2024 Influenza Adult (#1) 2024 12/18/2014, 01/08/2013, 12/07/2011 Hepatitis A Vaccines Aged Out No long er eligible based on patient's age to complete this topic Meningococcal B Vaccine Aged Out No l onger eligible based on patient's age to complete this topic Meningococcal Vaccine Aged Out No jemima geeta eligible based on patient's age to complete this topic RSV Immunizations Under 20 Months Aged Out No longer eligible b ased on patient's age to complete this topic Procedures Procedure Name Priority Date/Time Associated Diagnosis Comments PHOSPHORUS, INORGANIC PHOSPHATE Routine 01/04/2025 4:40 AM CDT MAGNESIUM Routine 01/04/2025 4:40 AM CDT BASIC METABOLIC PANEL Routine 01/04/2025 4:40 AM CDT CBC W/DIFF AUTOMATED Routine 01/04/2025 4:40 AM CDT POCT GLUCOSE - DOCKED DEVICE Routine 01/03/2025 11:22 AM CDT POCT GLUCOSE - DOCKED DEVICE Routine 01/03/2025 5:27 AM CDT POCT GLUCOSE - DOCKED DEVICE Routine 01/03/2025 12:52 AM CDT ECG 12-LEAD Routine 01/02/2025 10:50 PM CDT POCT GLUCOSE - DOCKED DEVICE Routine 01/02/2025 8:33 PM CDT POCT GLUCOSE - DOCKED DEVICE Routine 01/02/2025 12:[address] ABD+PEL W CON Today 01/02/2025 11:10 AM CDT PHOSPHORUS, INORGANIC PHOSPHATE Routine 01/02/2025 5:31 AM CDT MAGNESIUM Routine 01/02/2025 5:31 AM CDT CBC W/DIFF AUTOMATED Routine 01/02/2025 5:31 AM CDT BASIC METABOLIC PANEL Routine 01/02/2025 5:31 AM CDT POCT GLUCOSE - DOCKED DEVICE Routine 01/02/2025 12:43 AM CDT POCT GLUCOSE - DOCKED DEVICE Routine 01/01/2025 8:19 PM CDT TROPONIN, QUANT STAT 01/01/2025 6:40 PM CDT ECG 12-LEAD STAT 01/01/2025 6:09 PM CDT POCT GLUCOSE - DOCKED DEVICE Routine 01/01/2025 3:58 PM CDT C AURIS,PCR,AXILLA/TERESA IN,NARES Routine 01/01/2025 12:50 PM CDT POCT GLUCOSE - DOCKED DEVICE Routine 01/01/2025 11:58 AM CDT POCT GLUCOSE - DOCKED DEVICE Routine 01/01/2025 5:12 AM CDT PHOSPHORUS, INORGANIC PHOSPHATE Routine 01/01/2025 2:59 AM CDT MAGNESIUM Routine 01/01/2025 2:59 AM CDT CBC W/DIFF AUTOMATED Routine 01/01/2025 2:59 AM CDT BASIC METABOLIC PANEL Routine 01/01/2025 2:59 AM CDT POCT GLUCOSE - DOCKED DEVICE Routine 01/01/2025 1:05 AM CDT POCT GLUCOSE - DOCKED DEVICE Routine 12/31/2024 12:35 PM CDT PHOSPHORUS, INORGANIC PHOSPHATE Routine 12/31/2024 2:20 AM CDT MAGNESIUM Routine 12/31/2024 2:20 AM CDT CBC W/DIFF AUTOMATED Routine 12/31/2024 2:20 AM CDT BASIC METABOLIC PANEL Routine 12/31/2024 2:20 AM CDT POCT GLUCOSE - DOCKED DEVICE Routine 12/31/2024 12:18 AM CDT HEMOGLOBIN AND HEMATOCRIT TIMED 12/30/2024 1:49 PM CDT POCT GLUCOSE - DOCKED DEVICE Routine 12/30/2024 11:05 AM CDT TRANSFUSE RED BLOOD CELLS Routine 12/30/2024 8:55 AM CDT POCT GLUCOSE - DOCKED DEVICE Routine 12/30/2024 5:33 AM CDT PRO-BRAIN NATRIURETIC PEPTIDE Routine 12/30/2024 2:31 AM CDT CBC W/DIFF AUTOMATED Routine 12/30/2024 2:31 AM CDT BASIC METABOLIC PANEL Routine 12/30/2024 2:31 AM CDT MAGNESIUM Routine 12/30/2024 2:31 AM CDT PHOSPHORUS, INORGANIC PHOSPHATE Routine 12/30/2024 2:31 AM CDT POCT GLUCOSE - DOCKED DEVICE Routine 12/29/2024 11:50 PM CDT POCT GLUCOSE - DOCKED DEVICE Routine 12/29/2024 8:06 PM CDT USE ECHO LTD Today 12/29/2024 12:25 PM CDT POCT GLUCOSE - DOCKED DEVICE Routine 12/29/2024 4:27 AM CDT MAGNESIUM Routine 12/29/2024 4:25 AM CDT PHOSPHORUS, INORGANIC PHOSPHATE Routine 12/29/2024 4:25 AM CDT BASIC METABOLIC PANEL Routine 12/29/2024 4:25 AM CDT CBC W/DIFF AUTOMATED Routine 12/29/2024 4:25 AM CDT POCT GLUCOSE - DOCKED DEVICE Routine 12/28/2024 11:34 PM CDT POCT GLUCOSE - DOCKED DEVICE Routine 12/28/2024 5:30 PM CDT EXPLORATORY OF ABDOMEN 12/28/2024 12:19 PM CDT bowel Case Notes OC #3ADDED ON 12/27/2024 @ [id number]AILABLEWANTS 0730 POCT GLUCOSE - DOCKED DEVICE Routine 12/28/2024 6:21 AM CDT MAGNESIUM Routine 12/28/2024 3:32 AM CDT PHOSPHORUS, INORGANIC PHOSPHATE Routine 12/28/2024 3:32 AM CDT BASIC METABOLIC PANEL Routine 12/28/2024 3:32 AM CDT CBC W/DIFF AUTOMATED Routine 12/28/2024 3:32 AM CDT PATHOLOGY Routine 12/28/2024 12:00 AM CDT POCT GLUCOSE - DOCKED DEVICE Routine 12/27/2024 11:50 PM CDT POCT GLUCOSE - DOCKED DEVICE Routine 12/27/2024 5:50 PM CDT USE ECHOCARDIOGRAM W CON Today 12/27/2024 2:05 PM CDT POCT GLUCOSE - DOCKED DEVICE Routine 12/27/2024 11:49 AM CDT POCT ACUTE ARTERIAL PANEL Routine 12/27/2024 10:45 AM CDT XR CHEST PORTABLE Routine 12/27/2024 10:36 AM CDT POCT ACUTE ARTERIAL PANEL Routine 12/27/2024 10:25 AM CDT ECG 12-LEAD Routine 12/27/2024 10:15 AM CDT PHOSPHORUS, INORGANIC PHOSPHATE STAT 12/27/2024 10:08 AM CDT LACTIC ACID STAT 12/27/2024 10:08 AM CDT MAGNESIUM STAT 12/27/2024 10:08 AM CDT CBC W/DIFF AUTOMATED STAT 12/27/2024 10:08 AM CDT BASIC METABOLIC PANEL STAT 12/27/2024 10:08 AM CDT TROPONIN, QUANT TIMED 12/27/2024 10:08 AM CDT POCT GLUCOSE - DOCKED DEVICE Routine 12/27/2024 9:13 AM CDT TRANSFUSE RED BLOOD CELLS Routine 12/27/2024 7:52 AM CDT TRANSFUSE RED BLOOD CELLS Routine 12/27/2024 7:29 AM CDT ART LINE PLACEMENT Routine 12/27/2024 6:56 AM CDT ART LINE PLACEMENT Routine 12/27/2024 6:45 AM CDT EXPLORATORY OF ABDOMEN 12/27/2024 6:08 AM CDT BOWEL OBSTRUCTION Case Notes DECLARED TYPE & SCREEN Routine 12/27/2024 5:54 AM CDT LACTIC ACID W REFLEX (SEPSIS) TIMED 12/27/2024 5:54 AM CDT PROTHROMBIN TIME, VENOUS STAT 12/27/2024 5:54 AM CDT CULTURE, BACTERIA, BLOOD STAT 12/27/2024 5:53 AM CDT DRUG SCREEN RAPID Nurse Collected Priority 12/27/2024 5:42 AM CDT HC URINALYSIS AUTO W/MICRO Nurse Collected Priority 12/27/2024 5:42 AM CDT ECG 12-LEAD Routine 12/27/2024 4:17 AM CDT LACTIC ACID W REFLEX (SEPSIS) Routine 12/27/2024 4:10 AM CDT COMPREHENSIVE METABOLIC PANEL Routine 12/27/2024 4:10 AM CDT CBC W/DIFF AUTOMATED Routine 12/27/2024 4:10 AM CDT TROPONIN, QUANT TIMED 12/27/2024 4:10 AM CDT POCT GLUCOSE - DOCKED DEVICE Routine 12/27/2024 2:42 AM CDT PATHOLOGY Routine 12/27/2024 12:00 AM CDT MAMMOGRAM GENERIC (SCAN ORDER) Routine 11/30/2016 4:32 PM CDT COLONOSCOPY Routine 03/20/2009 12:00 AM ALMOND GRINDER from Last 3 Months or Most Recently Relevant to Health Maintenance Results * (ABNORMAL) BASIC METABOLIC PANEL (01/04/2025 4:40 AM CDT) Only the most recent of8 resultswithin the time period is included. SODIUM S/P/B 138 136 - 145 MMOL/L 01/04/2025 5:55 AM CDT [facility] POTASSIUM S/P/B 4.4 3.5 - 5.1 MMOL/L 01/04/2025 5:55 AM CDT [facility] Comment:MILD HEMOLYSIS, RESU LT MAY BE AFFECTED. CHLORIDE S/P/B 103 97 - 115 MMOL/L 01/04/2025 5:55 AM CDT [facility] CO2 30.9 21.0 - 32.0 MMOL/L 01/04/2025 5:55 AM CDT [facility] GLUCOSE 122(H) 74 - 106 MG/DL 01/04/2025 5:55 AM CDT [facility] BUN 11 7 - 18 MG/DL 01/04/2025 5:55 AM CDT [facility] CREATININE S/P/B 0.52(L) 0.55 - 1.02 MG/DL 01/04/2025 5:55 AM CDT [facility] CALCIUM S/P/B 8.5 8.5 - 10.1 MG/DL 01/04/2025 5:55 AM CDT [facility] ANION GAP 4.1 2.0 - 10.0 MMOL/L 01/04/2025 5:55 AM CDT [facility] OSMOLALITY (CALC) 287 MOSM/KG 025 5:55 AM CDT [facility] Comment:REFERENCE RANGE NOT ESTABLISHED GFR ESTIMATE >90 >90 ML/MIN/1. 73 M2 01/04/2025 5:55 AM CDT [facility] GFR NOTES GFR REFERENCE S: 01/04/2025 5:55 AM CDT [facility] Comment: THE ESTIMATED GFR IS CALCULATED USING THE 2020 CKD-EPI EQUATION. THE FOLLOWING CATEGORIES FOR GRADING RENAL FUNCTION ARE RECOMMENDED BY THE INTERNATIONAL SOCIETY OF NEPHROLOGY (KDIGO 2012 CLINICAL PRACTICE GUIDELINE). G1,NORMAL OR HIGH: >89 ml/min/1.73 m2 G2,MILDLY DECREASED: 60-89 ml/min/1.73 m2 G3A,MILDLY TO MODERATELY DECREASED: 45-59 ml/min/1.73 m2 G3B,MODERATELY TO SEVERELY DECREASED: 30-44 ml/min/1.73 m2 G4,SEVERELY DECREASED: 15-29 ml/min/1.73 m2 G5,KIDNEY FAILURE: <15 ml/min/1.73 m2 01/04/2025 4:40 AM CDT us Montez Molina MD LABORATORY Final Result [facility] [address] [place] [address], [id number] * (ABNORMAL) CBC W/DIFF AUTOMATED (01/04/2025 4:40 AM CDT) Only the most recent of9 resultswithin the time period is included. WBC 10.58 4.00 - 10.80 x10'3/uL 01/04/2025 5:06 AM CDT [facility] RBC 4.43 4.10 - 5.40 x10'6/uL 01/04/2025 5:06 AM CDT [facility] HGB 8.8(L) 12.0 - 16.0 G/DL 01/04/2025 5:06 AM CDT [facility] HCT 32.4(L) 36.0 - 47.0 % 01/04/2025 5:06 AM CDT [facility] MCV 73.1(L) 78.0 - 100.0 FL 01/04/2025 5:06 AM CDT [facility] MCH 19.9(L) 27.0 - 31.0 PG 01/04/2025 5:06 AM CDT [facility] MCHC 27.2(L) 33.0 - 36.0 G/DL 01/04/2025 5:06 AM CDT [facility] RDW 29.3(H) 11.5 - 14.5 % 01/04/2025 5:06 AM CDT [facility] PLT 544(H) 150 - 350 x10'3/uL 01/04/2025 5:06 AM CDT [facility] MPV 9.5 7.4 - 10.4 FL 01/04/2025 5:06 AM CDT [facility] DIFFERENTIAL TYPE AUTOMATED DIFFERENTIAL 01/04/2025 6:09 AM CDT [facility] SEG NEUTROPHILS 67.8 % 6:09 AM CDT [facility] LYMPHOCYTES 13.9 % 01/04/2025 6:09 AM CDT [facility] MONOCYTES 8.5 % 01/04/2025 6:09 AM CDT [facility] EOSINOPHILS 7.1 % 01/04/2025 6:09 AM CDT [facility] BASOPHILS 0.8 % 01/04/2025 6:09 AM CDT [facility] IMMATURE GRANS % 1.7 % 01/05/20 6:09 AM CDT [facility] ABS. NEUTROPHILS 7.20 1.60 - 8.30 x10'3/uL 01/04/2025 6:09 AM CDT [facility] ABS. LYMPHOCYTES 1.47 0.80 - 4.70 x10'3/uL 01/04/2025 6:09 AM CDT [facility] ABS. MONOCYTES 0.90 0.00 - 1.50 x10'3/uL 01/04/2025 6:09 AM CDT [facility] ABS. EOSINOPHILS 0.75(H) 0.00 - 0.40 x10'3/uL 01/04/2025 6:09 AM CDT [facility] ABS. BASOPHILS 0.08 0.00 - 0.20 x10'3/uL 01/04/2025 6:09 AM CDT [facility] ABS. IMMATURE GRANULOCYTES 0.18(H) 0.00 - 0.03 x10'3/uL 01/04/2025 6:09 AM CDT [facility] ABS. NUCLEATED RBC'S 0.02(H) 0.00 - 0.01 x10'3/uL 01/04/2025 6:09 AM CDT [facility] NRBC % 0.2 % 01/04/2025 6:09 AM CDT [facility] RBC MORPHOLOGY SLIDE REVIEWED 2024 6:09 AM CDT [facility] ANISO MARKED 01/04/2025 6:09 AM CDT [facility] POIKLO MODERATE 01/04/2025 6:09 AM CDT [facility] HYPOCHROMASIA MODERATE 01/04/2025 6:09 AM CDT [facility] MICRO MODERATE 01/04/2025 6:09 AM CDT [facility] POLY SLIGHT 01/04/2025 6:09 AM CDT [facility] OVALOCYTES PRESENT 01/04/2025 6:09 AM CDT [facility] TARGET CELLS PRESENT 01/04/2025 6:09 AM CDT [facility] ACANTHOCYTES PRESENT 01/04/2025 6:09 AM CDT [facility] STOMATOCYTE PRESENT 01/04/2025 6:09 AM CDT [facility] PLT EST. INCREASED 01/04/2025 6:09 AM CDT [facility] 01/04/2025 4:40 AM CDT us Montez Molina MD LABORATORY Final Result [facility] [address] [place] [address], [id number] * PHOSPHORUS, INORGANIC PHOSPHATE (01/04/2025 4:40 AM CDT) Only the most recent of8 resultswithin the time period is included. PHOSPHORUS 4.3 2.5 - 4.9 MG/DL 01/04/2025 5:55 AM CDT [facility] 01/04/2025 4:40 AM CDT us Montez Molina MD LABORATORY Final Result Performing Organization Address [facility] de Phone Number [facility] [address] [place] [address], [place] [phone] * MAGNESIUM (01/04/2025 4:40 AM CDT) Only the most recent of8 resultswithin the time period is included. MAGNESIUM 1.9 1.6 - 2.6 MG/DL 01/04/2025 5:55 AM CDT [facility] Comment:RESULT QUESTIONABLE DUE TO HEMOLYSIS, RECOMMEND RECOLLECTION. 01/04/2025 4:40 AM CDT us Montez Molina MD LABORATORY Final Result Performing Organization Address [facility] de Phone Number [facility] [address] [place] [address], [place] [phone] * (ABNORMAL) POCT glucose (01/03/2025 11:22 AM CDT) Only the most recent of26 resultswithin the time period is included. GLUCOSE POC 194(H) 70 - 109 01/03/2025 11:32 AM CDT [facility] 01/03/2025 11:2 2 AM CDT us Montez Molina MD POCT ORDERABLES - DEVICE Final Result Performing Organization Address [facility] de Phone Number [facility] [address] [place] [address], [id number] * ECG 12 lead (01/02/2025 10:50 PM CDT) Only the most recent of4 resultswithin the time period is included. 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: Severino : 1960 Requested By: SAIMA HAGER Order Number: [id number] Reading MAXIMINO Pham Measurements Intervals [place] Rate: 72 P: 63 PA: 165 QRS: 24 QRSD: 95 T: 5 QT: 392 QTc: 432 Interpretive Statements SINUS RHYTHM POSSIBLE RIGHT VENTRICULAR CONDUCTION DELAY NONSPECIFIC ST & T-WAVE ABNORMALITY Procedure Note Camila Pham MD - 01/03/2025 [place] [address] Test Date: 2025-01-02 Pat Name: MAMI TAYLOR Department: 1 Room: [facility] Gender: Female Production Weigher: Severino : 1960 Requested By: SAIMA HAGER Order Number: [id number] Reading MAXIMINO Pham Measurements Intervals [place] Rate: 72 P: 63 PA: 165 QRS: 24 QRSD: 95 T: 5 QT: 392 QTc: 432 Interpretive Statements SINUS RHYTHM POSSIBLE RIGHT VENTRICULAR CONDUCTION DELAY NONSPECIFIC ST & T-WAVE ABNORMALITY us Saima Hager MD ECG ORDERABLES Final Result [facility] * CT ABD+PEL W CON (01/02/2025 11:10 AM CDT) Anatomical Region Laterality Modality Abdomen Computed Tomogra phy 01/02/2025 1:3 6 PM CDT Impressions 01/02/2025 1:56 PM CDT IMPRESSION: 1. Surgical changes of left hemicolectomy with left lower quadrant ostomy. No evidence is seen to suggest bowel obstruction. A percutaneous drain is present as above. Trace free intraperitoneal fluid and air is likely related to recent surgery. 2. Mild circumferential wall thickening of the remnant sigmoid colon that is nonspecific and could be due to recent surgery; however infectious or inflammatory involvement cannot be excluded. 3. Focus of hypoattenuation within the anterior aspect of the spleen inferiorly suggesting an infarct that is technically age indeterminate. 4. Coronary artery and mitral annular calcifications. 5. Small sliding-type hiatal hernia. 6. Saccular dilatation of the infrarenal abdominal aorta at 2 sites as described above. 7. Incompletely visualized pleural effusions appearing small on the left and trace on the right with associated passive atelectasis. Additional ill-defined patchy opacities in the right lower and middle lobe are likely due to atelectasis. 8. Prominence of the common bile duct measuring 9 mm and may be due to prior cholecystectomy. If clinically warranted, correlation with liver enzymes could be obtained. Referred By: PROVIDER NONE Interpreted By: Jim Blanco DO, 01/02/2025 1:36 PM Narrative 01/02/2025 1:56 PM CDT [facility] [address] [place], [place] [address] EXAMINATION: CT ABD+PEL W CON EXAM DATE: 01/02/2025 11:04 AM CLINICAL HISTORY: Persistent postoperative abdominal pain. COMPARISON: None. TECHNIQUE: Axial CT of the abdomen and pelvis was performed following intravenous administration of 100 cc Isovue-[id number]. Coronal and sagittal reformatted images were obtained and reviewed. A radiation dose lowering technique was used for this procedure, which may include, but is not limited to, dose reduction technique, automated exposure control, the use of iterative reconstruction, ALARA (As Low As Reasonably Achievable) techniques, and Image Gently techniques. FINDINGS: VISUALIZED LOWER THORAX: There are incompletely visualized pleural effusions appearing small on the left and trace on the right with associated passive atelectasis. Additional ill-defined patchy opacities in the right lower lobe and middle lobe are likely due to atelectasis. The incompletely visualized heart is not enlarged. There are coronary artery and mitral annular calcifications. There is a small sliding-type hiatal hernia. HEPATOBILIARY: The liver is normal in size without gross contour abnormality. No discrete hepatic lesion is seen. The gallbladder is surgically absent. There is prominence of the common bile duct measuring approximately 9 mm in diameter specific and may be due to prior cholecystectomy. The pancreas is negative. SPLEEN: The spleen is normal in size. There is a focus of hypoattenuation within the anterior aspect of the spleen inferiorly suggesting a small splenic infarct. GENITOURINARY: There is no adrenal mass. The kidneys demonstrate symmetric parenchymal enhancement without evidence to suggest hydronephrosis or perinephric abnormality. The urinary bladder is unremarkable. The uterus is surgically absent. AORTA: There are atherosclerotic calcifications of the abdominal aorta with focal saccular dilatation of the infrarenal abdominal aorta measuring up to 1.6 cm. There is additional saccular dilatation of the infrarenal abdominal aorta just above the aortic bifurcation measuring up to 2 cm in diameter that has the appearance of focal nonpropagating dissection. LYMPH NODES: There is no retroperitoneal, pelvic, or mesenteric adenopathy. GASTROINTESTINAL: There is a small sliding-type hiatal hernia. There is no gastric or small bowel dilatation. The appendix is surgically absent. There are surgical changes of left hemicolectomy with left lower quadrant ostomy. No evidence is seen to suggest bowel obstruction. There is mild circumferential wall thickening of the remnant sigmoid colon that is nonspecific and could be due to recent surgery; however infectious or inflammatory involvement cannot be excluded. PERITONEUM: There is trace free intraperitoneal fluid. There is also trace scattered free intraperitoneal air. There is a right anterior lower abdominal wall percutaneous drain with the distal tip in the left lower quadrant. MUSCULOSKELETAL: There is scattered subcutaneous edema and air in the anterior abdominal wall likely related to recent surgery. Midline skin kristi are compatible with recent surgery. Moderate degenerative disc disease affects the visualized lower thoracic spine. Moderate osteoarthritis affects the right hip with relatively mild left hip osteoarthritis. Procedure Note Francis Jim Linares DO - 01/02/[address] [address] EXAMINATION: CT ABD+PEL W CON EXAM DATE: 01/02/2025 11:04 AM CLINICAL HISTORY: Persistent postoperative abdominal pain. COMPARISON: None. TECHNIQUE: Axial CT of the abdomen and pelvis was performed following intravenousadministration of 100 cc Isovue-370. Coronal and sagittal reformattedimages were obtained and reviewed. A radiation dose lowering technique wasused for this procedure, which may include, but is not limited to, dosereduction technique, automated exposure control, the use of iterativereconstruction, ALARA (As Low As Reasonably Achievable) techniques, andImage Gently techniques. FINDINGS: VISUALIZED LOWER THORAX: There are incompletely visualized pleural effusions appearing small on theleft and trace on the right with associated passive atelectasis.Additional ill-defined patchy opacities in the right lower lobe and middlelobe are likely due to atelectasis. The incompletely visualized heart isnot enlarged. There are coronary artery and mitral annularcalcifications. There is a small sliding-type hiatal hernia. HEPATOBILIARY: The liver is normal in size without gross contour abnormality. Nodiscrete hepatic lesion is seen. The gallbladder is surgically absent.There is prominence of the common bile duct measuring approximately 9 mmin diameter specific and may be due to prior cholecystectomy. Thepancreas is negative. SPLEEN: The spleen is normal in size. There is a focus of hypoattenuation withinthe anterior aspect of the spleen inferiorly suggesting a small splenicinfarct. GENITOURINARY: There is no adrenal mass. The kidneys demonstrate symmetric parenchymalenhancement without evidence to suggest hydronephrosis or perinephricabnormality. The urinary bladder is unremarkable. The uterus issurgically absent. AORTA: There are atherosclerotic calcifications of the abdominal aorta with focalsaccular dilatation of the infrarenal abdominal aorta measuring up to 1.6cm. There is additional saccular dilatation of the infrarenal abdominalaorta just above the aortic bifurcation measuring up to 2 cm in diameterthat has the appearance of focal nonpropagating dissection. LYMPH NODES: There is no retroperitoneal, pelvic, or mesenteric adenopathy. GASTROINTESTINAL: There is a small sliding-type hiatal hernia. There is no gastric or smallbowel dilatation. The appendix is surgically absent. There are surgicalchanges of left hemicolectomy with left lower quadrant ostomy. Noevidence is seen to suggest bowel obstruction. There is mildcircumferential wall thickening of the remnant sigmoid colon that isnonspecific and could be due to recent surgery; however infectious orinflammatory involvement cannot be excluded. PERITONEUM: There is trace free intraperitoneal fluid. There is also trace scatteredfree intraperitoneal air. There is a right anterior lower abdominal wallpercutaneous drain with the distal tip in the left lower quadrant. MUSCULOSKELETAL: There is scattered subcutaneous edema and air in the anterior abdominalwall likely related to recent surgery. Midline skin kristi arecompatible with recent surgery. Moderate degenerative disc diseaseaffects the visualized lower thoracic spine. Moderate osteoarthritisaffects the right hip with relatively mild left hip osteoarthritis. IMPRESSION: 1. Surgical changes of left hemicolectomy with left lower quadrantostomy. No evidence is seen to suggest bowel obstruction. A percutaneousdrain is present as above. Trace free intraperitoneal fluid and air islikely related to recent surgery. 2. Mild circumferential wall thickening of the remnant sigmoid colon thatis nonspecific and could be due to recent surgery; however infectious orinflammatory involvement cannot be excluded. 3. Focus of hypoattenuation within the anterior aspect of the spleeninferiorly suggesting an infarct that is technically age indeterminate. 4. Coronary artery and mitral annular calcifications. 5. Small sliding-type hiatal hernia. 6. Saccular dilatation of the infrarenal abdominal aorta at 2 sites asdescribed above. 7. Incompletely visualized pleural effusions appearing small on the leftand trace on the right with associated passive atelectasis. Additionalill-defined patchy opacities in the right lower and middle lobe are likelydue to atelectasis. 8. Prominence of the common bile duct measuring 9 mm and may be due toprior cholecystectomy. If clinically warranted, correlation with liverenzymes could be obtained. Referred By: PROVIDER NONE Interpreted By: Jim Blanco DO, 01/02/2025 1:36 PM Montez Molina MD CT Final Result * TROPONIN, QUANT (01/01/2025 6:40 PM CDT) Only the most recent of3 resultswithin the time period is included. Pathologist [facility] [place] TROPONIN I HIGH SENSITIVITY 21 0 - 53 ng/L 01/01/2025 7:17 PM CDT [facility] 01/01/2025 6:40 PM CDT Montez Molina MD LABORATORY Final Result Performing Organization Address [facility] de Phone Number [facility] [address] [place] [address], [place] [phone] * C AURIS,PCR,AXILLA/GROIN,NARES (01/01/2025 12:50 PM CDT) Pathologist [facility] [place] KAMLA AURIS (CLARITA/GROIN) Not Detected Not Detected 01/04/2025 2:12 PM CDT Recorded Future RENATA REYEZ Comment: A Not Detected result indicates that Kamla auris DNA was not present in the surveillance sample above the limit of detection of the assay. This assay is intended for screening of Kamla auris colonization from external human body sites and should not be used for patient monitoring, therapy decisions, or as a test of cure. This test was developed and its analytical performance characteristics have been determined by [email or web address] [place], [place]. It has not been cleared or approved by the U.S. Food and Drug Administration. This assay has been validated pursuant to the CLIA regulations and is used for clinical purposes. Test Performed by [facility], [email or web address] [place], [address] [place], [place] Mike Mitchell M.D., Ph.D., Director of Laboratories , CLIA [id number] 01/01/2025 12:5 0 PM CDT Montez Molina MD LABORATORY Final Result [facility] [address] [place] [address], [place] [phone] * (ABNORMAL) HEMOGLOBIN AND HEMATOCRIT (12/30/2024 1:49 PM CDT) HGB 7.9(L) 12.0 - 16.0 G/DL 12/30/2024 2:03 PM CDT [facility] HCT 28.0(L) 36.0 - 47.0 % 12/30/2024 2:03 PM CDT [facility] 12/30/2024 1:49 PM CDT Montez Molina MD LABORATORY Final Result Performing Organization Address [facility] Co de Phone Number [facility] [address] [place] [address], [place] [phone] * TRANSFUSE RED BLOOD CELLS (12/30/2024 11:22 AM CDT) Only the most recent of3 resultswithin the time period is included. Niru Diaz DO NURSING TREATMENT ORDERABLE S - BLOOD ADMIN Final Result * (ABNORMAL) PRO-BRAIN NATRIURETIC PEPTIDE (12/30/2024 2:31 AM CDT) PRO-B TYPE NATRIURETIC PEPTIDE 3,721(H) <125 PG/ML 12/30/2024 5:01 AM CDT [facility] Comment: AGE INDEPENDENT: <300 PG/ML HAS A 99% NEGATIVE PREDICTIVE VALUE FOR EXCLUDING ACUTE CHF <50 YEARS: >450 PG/ML IS CONSISTENT WITH ACUTE CHF 50-75 YEARS: >900 PG/ML IS CONSISTENT WITH ACUTE CHF >75 YEARS: >1800 PG/ML IS CONSISTENT WITH ACUTE CHF IN PATIENTS WITH RENAL INSUFFICIENCY (GFR <60), >1200 PG/ML YIELDS A DIAGNOSTIC SENSITIVITY AND SPECIFICITY OF 89% AND 72% FOR ACUTE CHF. 12/30/2024 2:31 AM CDT us Saima Hager MD LABORATORY Final Result [facility] [address] [place] [address], [phone] * USE [employer] (12/29/2024 12:25 PM CDT) Anatomical Region Laterality Modality Cardiac Echocardiogram 12/29/2024 9:54 AM CDT Narrative 12/29/2024 5:31 PM CDT Echocardiography Report Pat.Name: MAMI TAYLOR Pat.ID: [id number] St.Date: 12/29/2024 Refer.MD: SAIMA HAGER Exam Time: 9:54:00 AM Study Type:ECHO WITH DOPPLER LIMITED Height: 67 in Weight: 170 lb BSA: 1.89 m2 Age: 11 1960,64Y Sex: F BP: 143/66 HR: 83 bpm Sonogrphr: Alicia Norwood [facility] Pat. Stat.:Inpatient Room: [facility] CPT - 4: [id number] [id number] Reason for Study:assess intracavitary gradient (LVOT), bubble study to rule out shunt Procedures: 2D, Doppler, Color Flow, Intraveneous saline contrast was used to help determine presence of intracardiac shunting. The study quality is technically adequate. Race: W ++++++++++++++++++++++++++++++++++++ SUMMARY: ++++++++++++++++++++++++++++++++++++ The left ventricular size is normal. The left ventricular systolic function is hyperdynamic. Estimated left ventricular ejection fraction is 70%. Asymmetric LVH has been defined on a recent prior study. Mildly increased LVOT gradient. The agitated saline injection is nondiagnostic. Suboptimal quality of the agitated saline injection. ++++++++++++++++++++++++++++++++++++ FINDINGS: ++++++++++++++++++++++++++++++++++++ LV: The left ventricular size is normal. The left ventricular systolic function is hyperdynamic. Estimated left ventricular ejection fraction is 70%. LVOT: Asymmetric LVH has been defined on a recent prior study. LVOT Max Pg 13 mm/Hg and Mean PG 7.6mm/Hg IAS: Atrial septum appears intact. The agitated saline injection is nondiagnostic. Suboptimal quality of the agitated saline injection. Patient is ventilated, so unable to perform valsalva. ++++++++++++++++++++++++++++++++++++ MEASUREMENTS: ++++++++++++++++++++++++++++++++++++ DOPPLER LVOT LVOTpkPG 12.7 mmHg LVOT TVI 37 cm LVOTpkVel 178 cm/s (70-110)+* LVOTmnPG 7.1 mmHg <Electronic Signature> 12/29/2024 05:31 PM Saima Hager M.D. Procedure Note Saima Hager MD - 12/29/2024 Echocardiography Report Pat.Name: MAMI TAYLOR.ID: [id number] .Date: 12/29/2024 Refer.MD: SAIMA HAGER Exam Time: 9:54:00 AM Study Type:ECHO WITH DOPPLER LIMITED Height: 67 in Weight: 170 lb BSA: 1.89 m2 Age: 11 1960,64Y Sex: F BP: 143/66 HR: 83 bpm Sonogrphr: Alicia [facility]wood [facility] Pat. Stat.:Inpatient Room: [facility] CPT - 4: 44311 [id number] Reason for Study:assess intracavitary gradient (LVOT), bubble study to rule out shunt Procedures: 2D, Doppler, Color Flow, Intraveneous saline contrast was used to help determine presence of intracardiac shunting. The study quality is technically adequate. Race: W ++++++++++++++++++++++++++++++++++++ SUMMARY: ++++++++++++++++++++++++++++++++++++ The left ventricular size is normal. The left ventricular systolic function is hyperdynamic. Estimated left ventricular ejection fraction is 70%. Asymmetric LVH has been defined on a recent prior study. Mildly increased LVOT gradient. The agitated saline injection is nondiagnostic. Suboptimal quality of the agitated saline injection. ++++++++++++++++++++++++++++++++++++ FINDINGS: ++++++++++++++++++++++++++++++++++++ LV: The left ventricular size is normal. The left ventricular systolic function is hyperdynamic. Estimated left ventricular ejection fraction is 70%. LVOT: Asymmetric LVH has been defined on a recent prior study. LVOT Max Pg 13 mm/Hg and Mean PG 7.6mm/Hg IAS: Atrial septum appears intact. The agitated saline injection is nondiagnostic. Suboptimal quality of the agitated saline injection. Patient is ventilated, so unable to perform valsalva. ++++++++++++++++++++++++++++++++++++ MEASUREMENTS: ++++++++++++++++++++++++++++++++++++ DOPPLER LVOT LVOTpkPG 12.7 mmHg LVOT TVI 37 cm LVOTpkVel 178 cm/s (70-110)+* LVOTmnPG 7.1 mmHg <Electronic Signature> 12/29/2024 05:31 PM Saima Hager M.D. Saima Hager MD ECHO Final Result * Pathology (12/28/2024 12:00 AM CDT) Only the most recent of2 resultswithin the time period is included. PATHOLOGY [facility] Department of Laboratory Medicine [address] [place] [address] , extension [phone] Pathology Report Surgical Pathology Report Name: MAMI TAYLOR Specimen #: [id number] Age: 11 1960 (Age: 64) Location: [facility] Sex: F Procedure Date: 12/28/2024 Hospital #: [id number] Date Received: 12/30/2024 Date Reported: 12/31/2024 Provider: NIRU PRICE MD Source: Sigmoid stump Clinical History: Not provided FINAL DIAGNOSIS: Sigmoid stump, partial colectomy: -Ischemic colitis and ulceration, extending to both margins Gross Description: Received in formalin, labeled with a patient label and as sigmoid stump is a 2 cm long segment of bowel tissue which has a diameter of 4.5 cm. There is a moderate amount of adipose tissue attached to the specimen. Sections reveal that the wall of the bowel has an average thickness of 0.7 cm. The mucosa is slightly dusky. No polyps or mass lesions are identified. A section adjacent to 1 margin is submitted in cassette 1, and a section adjacent to the other margin is submitted in cassette 2. Gross examination (when applicable) was performed at [facility], [address] [place] [address]. This case was interpreted and signed out at [facility], [address] [place] [address]. Electronically Signed Out GARCÍA GROVES MD [facility] TISSUE (OTHER (type in comments)) 12/28/2024 1:30 PM CDT us Niru Diaz DO PATHOLOGY/CYTOLOGY ORDERABL ES Final Result [facility] [address] [place] [address], [phone] * USE ECHOCARDIOGRAM W CON (12/27/2024 2:05 PM CDT) Anatomical Region Laterality Modality NA Echocardiogram 12/27/2024 1:35 PM CDT Narrative 12/27/2024 2:54 PM CDT Echocardiography Report Pat.Name: MAMI TAYLOR.ID: [id number] .Date: 12/27/2024 Refer: [id number] NONE PROVIDER EWDPROV EWDPROV Exam Time: 1:35:00 PM Study Type:ECHO WITH CARDIAC DOPPLER COMP Height: 67 in Weight: 170 lb BSA: 1.89 m2 Age: 11 1960,64Y Sex: F BP: 118/53 HR: 81 bpm Sonogrphr: HAKEEM Briggs. Stat.:Inpatient Room: [facility] CPT - 4: 24784 Reason for Study:Evaluate for thrombus/vegetations Procedures: 2D, M-mode, Doppler, Color Flow, Portable ++++++++++++++++++++++++++++++++++++ SUMMARY: ++++++++++++++++++++++++++++++++++++ 1. Ventricular Systolic function is hyperdynamic with LVEF greater than 70%. 2. There appears to be a independently mobile mass on the mitral valve leaflets and subvalvular apparatus which may represent vegetation or thrombus in the correct clinical setting, recommend ZAHRA for better evaluation. 3. There also appears to be a subaortic membrane seen with mildly elevated velocities which can also be better evaluated with ZAHRA. 4. No significant valvular regurgitations ++++++++++++++++++++++++++++++++++++ FINDINGS: ++++++++++++++++++++++++++++++++++++ LV: The left ventricular size is normal. The left ventricular systolic function is hyperdynamic. The calculated ejection fraction is 74%. No left ventricular hypertrophy. The septal E/e' is elevated at >15. The lateral E/e' is elevated at >11. Possible thrombus/mass seen in area of papillary muscle in LV. WM: Wall motion appears normal in all segments. LVOT: Left ventricular outflow tract obstruction produced by a membrane. RV: The right ventricle size is normal. The right ventricular function is normal. IVS: There is a sigmoid septum measuring 1.8cm.. LA: The left atrial volume is moderately increased (42-48 ml/M2). RA: The right atrial size is normal. IAS: Atrial septum is normal. KERI: No evidence of pericardial effusion. AO: Aorta is normal. PA: Unable to reliably quantitate pulmonary systolic pressure. SVn: Systemic veins are normal. AV: No evidence of aortic valve stenosis. The peak velocity across the aortic valve measures 2.79 with a peakgradient of 31mmHg. No evidence of aortic valve regurgitation. No aortic valve vegetation. There is a discrete subaortic valve membrane noted. MV: Cannot exclude mitral valve vegetation. PV: The pulmonic valve is normal There is trace pulmonic regurgitation TV: A trace of tricuspid regurgitation. No tricuspid valve vegetation. ++++++++++++++++++++++++++++++++++++ MEASUREMENTS: ++++++++++++++++++++++++++++++++++++ DOPPLER AV Forward Flow AV TVI 51.3 cm AV mnPG 16.7 mmHg AV pkVel 284 cm/s (100-170)+* AV pkPG 33 mmHg AV mnVel 186 cm/s MV Forward Flow MV DeTm 219 msec MV E/A 1 MV mnPG 5 mmHg MV pkE 134 cm/s (60-130)* MV pkPG 11 mmHg MV pkA 135 cm/s MV Regurg Flow MV pkPG 139 mmHg MV pkVel 590 cm/s (60-130)* PV Forward Flow PV pkVel 126 cm/s (60-90)+* PV pkPG 7 mmHg Lat E' Lat e 9.9 cm/s Lat E/E' Lat E/e 13.5 Med E' Med e 7.02 cm/s Med E/E' Med E/e 19.1 Lat MA LV Peak Chaves Ti 11.4 cm/s Left Ventricle 0.9 Left Ventricle Ratio of MV Pea 15.8 Mean Myocardial 8.46 cm/s LV Mass 2D Value 159 g LV Mass [id number] Value 84.1 g/m2 Med MA LV Peak Chaves Ti 9.19 cm/s Left Ventricle 0.8 Right Ventricle Right Ventricle 14.6 cm/s 2D Left Ventricle LVIDd 2.11 cm (3.6-5.2)* Relative Wall T 0.477 LVIDs 0.905 cm (2.3-3.9)* LVPW LVPWd 0.95 cm Ventricular Septum IVSd 1.4 cm Left Atrium LA a-p 3.5 cm (2.8-3.4)+* Aorta Ao Sin 1.35 cm (2.5-3.3)* Ao Asc 1.69 cm (zsc -2.5)* LVOT LVOT 1.95 cm Ratios IVS LA Biplane LAVol I BP 42.1 ml/m2 LV Left Ventricle Mass by M-mode LV Mass 159 g Right Ventricle Right Ventricle 2.8 cm Right Ventricle 2.3 cm Major [place] 8.3 cm MMODE TA Tricuspid Annul 2.09 cm <Electronic Signature> 12/27/2024 02:54 PM Gerri Mcneal M.D. Procedure Note Gerri Mcneal, - 12/27/2024 Echocardiography Report Pat.Name: MAMI TAYLOR Rhea.ID: [id number] .Date: 12/27/2024 Refer.: [id number] NONE PROVIDER EWDPROV EWDPROV Exam Time: 1:35:00 PM Study Type:ECHO WITH CARDIAC DOPPLER COMP Height: 67 in Weight: 170 lb BSA: 1.89 m2 Age: 11 1960,64Y Sex: F BP: 118/53 HR: 81 bpm Sonogrphr: HAKEEM Briggs Pat. Stat.:Inpatient Room: [facility] CPT - 4: 08730 Reason for Study:Evaluate for thrombus/vegetations Procedures: 2D, M-mode, Doppler, Color Flow, Portable ++++++++++++++++++++++++++++++++++++ SUMMARY: ++++++++++++++++++++++++++++++++++++ 1. Ventricular Systolic function is hyperdynamic with LVEF greater than 70%. 2. There appears to be a independently mobile mass on the mitral valve leaflets and subvalvular apparatus which may represent vegetation or thrombus in the correct clinical setting, recommend ZAHRA for better evaluation. 3. There also appears to be a subaortic membrane seen with mildly elevated velocities which can also be better evaluated with ZAHRA. 4. No significant valvular regurgitations ++++++++++++++++++++++++++++++++++++ FINDINGS: ++++++++++++++++++++++++++++++++++++ LV: The left ventricular size is normal. The left ventricular systolic function is hyperdynamic. The calculated ejection fraction is 74%. No left ventricular hypertrophy. The septal E/e' is elevated at >15. The lateral E/e' is elevated at >11. Possible thrombus/mass seen in area of papillary muscle in LV. WM: Wall motion appears normal in all segments. LVOT: Left ventricular outflow tract obstruction produced by a membrane. RV: The right ventricle size is normal. The right ventricular function is normal. IVS: There is a sigmoid septum measuring 1.8cm.. LA: The left atrial volume is moderately increased (42-48 ml/M2). RA: The right atrial size is normal. IAS: Atrial septum is normal. KERI: No evidence of pericardial effusion. AO: Aorta is normal. PA: Unable to reliably quantitate pulmonary systolic pressure. SVn: Systemic veins are normal. AV: No evidence of aortic valve stenosis. The peak velocity across the aortic valve measures 2.79 with a peakgradient of 31mmHg. No evidence of aortic valve regurgitation. No aortic valve vegetation. There is a discrete subaortic valve membrane noted. MV: Cannot exclude mitral valve vegetation. PV: The pulmonic valve is normal There is trace pulmonic regurgitation TV: A trace of tricuspid regurgitation. No tricuspid valve vegetation. ++++++++++++++++++++++++++++++++++++ MEASUREMENTS: ++++++++++++++++++++++++++++++++++++ DOPPLER AV Forward Flow AV TVI 51.3 cm AV mnPG 16.7 mmHg AV pkVel 284 cm/s (100-170)+* AV pkPG 33 mmHg AV mnVel 186 cm/s MV Forward Flow MV DeTm 219 msec MV E/A 1 MV mnPG 5 mmHg MV pkE 134 cm/s (60-130)* MV pkPG 11 mmHg MV pkA 135 cm/s MV Regurg Flow MV pkPG 139 mmHg MV pkVel 590 cm/s (60-130)* PV Forward Flow PV pkVel 126 cm/s (60-90)+* PV pkPG 7 mmHg Lat E' Lat e 9.9 cm/s Lat E/E' Lat E/e 13.5 Med E' Med e 7.02 cm/s Med E/E' Med E/e 19.1 Lat MA LV Peak Chaves Ti 11.4 cm/s Left Ventricle 0.9 Left Ventricle Ratio of MV Pea 15.8 Mean Myocardial 8.46 cm/s LV Mass 2D Value 159 g LV Mass [id number] Value 84.1 g/m2 Med MA LV Peak Chaves Ti 9.19 cm/s Left Ventricle 0.8 Right Ventricle Right Ventricle 14.6 cm/s 2D Left Ventricle LVIDd 2.11 cm (3.6-5.2)* Relative Wall T 0.477 LVIDs 0.905 cm (2.3-3.9)* LVPW LVPWd 0.95 cm Ventricular Septum IVSd 1.4 cm Left Atrium LA a-p 3.5 cm (2.8-3.4)+* Aorta Ao Sin 1.35 cm (2.5-3.3)* Ao Asc 1.69 cm (zsc -2.5)* LVOT LVOT 1.95 cm Ratios IVS LA Biplane LAVol I BP 42.1 ml/m2 LV Left Ventricle Mass by M-mode LV Mass 159 g Right Ventricle Right Ventricle 2.8 cm Right Ventricle 2.3 cm Major [place] 8.3 cm MMODE TA Tricuspid Annul 2.09 cm <Electronic Signature> 12/27/2024 02:54 PM Gerri Mcneal M.D. Niru J Diaz DO ECHO Final Resul t * (ABNORMAL) POCT ACUTE ARTERIAL PANEL (12/27/2024 10:45 AM CDT) Only the most recent of2 resultswithin the time period is included. SODIUM WHOLE BLOOD 139 138 - 146 mmol/L 12/27/2024 10:51 AM CDT [facility] POTASSIUM WHOLE BLOOD 4.7 3.5 - 4.9 mmol/L 12/27/2024 10:51 AM CDT [facility] CA IONIZED WH BLOOD 1.12 1.12 - 1.32 mmol/L 12/27/2024 10:51 AM CDT [facility] POC PH ARTERIAL 7.285(L) 7.35 - 7.45 12/27/2024 10:51 AM CDT [facility] POC PCO2 ARTERIAL 39.8 35.0 - 45.0 MMHG 12/27/2024 10:51 AM CDT [facility] POC PO2 ARTERIAL 115(H) 80 - 105 MMHG 12/27/2024 10:51 AM CDT [facility] POC HCO3 ARTERIAL 18.9(L) 22 - 26 MMOL/L 12/27/2024 10:51 AM CDT [facility] POC TCO2 ARTERIAL 20(L) 23 - 27 MMOL/L 12/27/2024 10:51 AM CDT [facility] POC BASE DEFICIT ARTERIAL 8(H) 0 - 2 MMOL/L 12/27/2024 10:51 AM CDT [facility] POC HEMATOCRIT 29(L) 38 - 51 % 12/27/2024 10:51 AM CDT [facility] TIME TEST WAS PERFORMED: 1045 12/27/2024 10:51 AM CDT [facility] 12/27/2024 10:4 5 AM CDT us Chidi Gallagher MD POCT ORDERABLES - DEVICE Final Result [id number] [address], [id number] * XR CHEST PORTABLE (12/27/2024 10:36 AM CDT) Anatomical Region Laterality Modality Chest Radiographic Mary ging 12/27/2024 1:44 PM CDT Impressions 12/27/2024 1:46 PM CDT IMPRESSION: The gastric tube is in the stomach. Referred By: PROVIDER NONE Interpreted By: Ayush Real MD, 12/27/2024 1:44 PM Narrative 12/27/2024 1:46 PM CDT [address] [address] EXAM: XR CHEST PORTABLE DATE: 12/27/2024 1033 hours No comparison INDICATION: Gastric tube placement. TECHNIQUE: One view FINDINGS: Endotracheal tube is about 6 cm above the eunice. Gastric tube is in the stomach. Enlarged heart and central pulmonary vessels. Mild ill-defined lung densities. Procedure Note Ayush Real MD - 12/27/[address] [address] EXAM: XR CHEST PORTABLE DATE: 12/27/2024 1033 hours No comparison INDICATION: Gastric tube placement. TECHNIQUE: One view FINDINGS: Endotracheal tube is about 6 cm above the eunice. Gastric tubeis in the stomach. Enlarged heart and central pulmonary vessels. Mildill-defined lung densities. IMPRESSION: The gastric tube is in the stomach. Referred By: PROVIDER NONE Interpreted By: Ayush Real MD, 12/27/2024 1:44 PM Chidi Gallagher MD GENERAL IMAGING Final Result * LACTIC ACID (12/27/2024 10:08 AM CDT) LACTIC ACID VENOUS 1.6 0.4 - 2.0 MMOL/L 12/27/2024 10:52 AM CDT [facility] 12/27/2024 10:0 8 AM CDT us Chidi Gallagher MD LABORATORY Final Result Performing Organization Address [facility] Co de Phone Number [facility] [address] [place] [address], [place] [phone] * Art Line (12/27/2024 6:56 AM CDT) Only the most recent of2 resultswithin the time period is included. Nathan Davis MD - 12/27/2024 6:56 AM CDT Nathan Chicas MD 12/27/2024 6:57 AM Art Line Date/Time: 12/27/2024 6:56 AM Performed by: Nathan Chicas MD Authorized by: Nathan Chicas MD Patient Location: OR Placed Outside of This Facility?: No Size: 20 Orientation: Left Location: Radial Site Prep: Chlorhexadine Insertion Attempts: 3 Ultrasound-guided Placement: Yes Ultrasound was used to identify the vessel Secure Method: Other (comment) (CHG imbedding tegaderm) Nathan Chicas MD PA ANESTHESIA Final Result * (ABNORMAL) LACTIC ACID W REFLEX (SEPSIS) (12/27/2024 5:54 AM CDT) Only the most recent of2 resultswithin the time period is included. LACTIC ACID VENOUS 3.1(H) 0.4 - 2.0 MMOL/L 12/27/2024 6:46 AM CDT [facility] 12/27/2024 5:54 AM CDT Angel Gonzalez MD LABORATORY Final Resu lt Performing Organization Address [facility]/ZIP Co de Phone Number [facility] [address] [place] [address], [place] [phone] * TYPE & SCREEN (12/27/2024 5:54 AM CDT) UNITS ORDERED 4 12/30/2024 6:44 AM CDT [facility] ABO/RH O POSITIVE 12/27/2024 6:35 AM CDT [facility] ANTIBODY SCREEN NEGATIVE 6:35 AM CDT [facility] SAMPLE EXPIRATION 12/30/2024,2359 12/27/2024 5:58 AM CDT [facility] BLOOD UNIT NUMBER [id number] 12/27/2024 7:10 AM CDT [facility] PRODUCT: PC LEUKOPOOR 12/27/2024 7:10 AM CDT [facility] UNIT DIVISION 00 12/27/2024 7:10 AM CDT [facility] BLOOD UNIT STATUS TRANSFUSED,FINAL 12/28/2024 1:49 AM CDT [facility] ISSUE DATE/TIME [id number] 025 1:49 AM CDT [facility] PRODUCT CODE [id number] 12/28/2024 1:49 AM CDT [facility] ABO/RH Unit O POS 12/28/2024 1:49 AM CDT [facility] ABO/RH UNIT ISBT CODE 5100 12/28/2024 1:49 AM CDT [facility] BLOOD UNIT EXPIRATION DATE [id number] 12/28/2024 1:49 AM CDT [facility] TRANSFUSION STATUS OK TO TRANSFUSE 12/27/2024 7:10 AM CDT [facility] CROSSMATCH COMPATIBLE-EXM 12/27/2024 7:10 AM CDT [facility] BLOOD UNIT NUMBER [id number] 12/27/2024 7:10 AM CDT [facility] PRODUCT: PC LEUKOPOOR 12/27/2024 7:10 AM CDT [facility] UNIT DIVISION 00 12/27/2024 7:10 AM CDT [facility] BLOOD UNIT STATUS TRANSFUSED,FINAL 12/28/2024 1:49 AM CDT [facility] ISSUE DATE/TIME [id number] 025 1:49 AM CDT [facility] PRODUCT CODE [id number] 12/28/2024 1:49 AM CDT [facility] ABO/RH Unit O POS 12/28/2024 1:49 AM CDT [facility] ABO/RH UNIT ISBT CODE 5100 12/28/2024 1:49 AM CDT [facility] BLOOD UNIT EXPIRATION DATE [id number] 12/28/2024 1:49 AM CDT [facility] TRANSFUSION STATUS OK TO TRANSFUSE 12/27/2024 7:10 AM CDT [facility] CROSSMATCH COMPATIBLE-EXM 12/27/2024 7:10 AM CDT [facility] BLOOD UNIT NUMBER [id number] 12/30/2024 8:35 AM CDT [facility] PRODUCT: PC LEUKOPOOR 12/30/2024 8:35 AM CDT [facility] UNIT DIVISION 00 12/30/2024 8:35 AM CDT [facility] BLOOD UNIT STATUS TRANSFUSED,FINAL 12/31/2024 1:09 AM CDT [facility] ISSUE DATE/TIME [id number] 025 1:09 AM CDT [facility] PRODUCT CODE [id number] 12/31/2024 1:09 AM CDT [facility] ABO/RH Unit O POS 12/31/2024 1:09 AM CDT [facility] ABO/RH UNIT ISBT CODE 5100 12/31/2024 1:09 AM CDT [facility] BLOOD UNIT EXPIRATION DATE [id number] 12/31/2024 1:09 AM CDT [facility] TRANSFUSION STATUS OK TO TRANSFUSE 12/30/2024 8:35 AM CDT [facility] CROSSMATCH COMPATIBLE-EXM 12/30/2024 8:35 AM CDT [facility] 12/27/2024 5:5 4 AM CDT Angel Gonzalez MD BLOOD BANK TEST ORDERABLES Final Result Performing Organization Address [facility] Co de Phone Number [facility] [address] [place] [address], [phone] * (ABNORMAL) PROTIME/INR, VENOUS (PROTHROMBIN TIME) (12/27/2024 5:54 AM CDT) PROTIME 15.0(H) 9.4 - 12.5 SEC 12/27/2024 6:37 AM CDT [facility] INR 1.3(H) 0.8 - 1.1 12/27/2024 6:37 AM CDT [facility] 12/27/2024 5:54 AM CDT Niru Diaz DO LABORATORY Final Resul t Performing Organization Address [facility] de Phone Number [facility] [address] [place] [address], [phone] * CULTURE, BACTERIA BLOOD X2 (12/27/2024 5:53 AM CDT) SPEC DESCRIPTION BLOOD 12/27/2024 5:35 AM CDT [facility] SPECIAL REQUESTS NO SPECIAL REQUEST 12/27/2024 5:35 AM CDT [facility] CULTURE RESULT NO GROWTH 5 DAYS 01/01/2025 6:02 AM CDT [facility] BLOOD SPECIMEN OBTAINED FOR BLOOD CULTURE / Unknown 12/27/2024 5:53 AM CDT 12/27/2024 5:54 AM CDT Niru Diaz DO MICROBIOLOGY - GENERAL ORDEde QUINN Final Result [facility] [address] [place] [address], [phone] * (ABNORMAL) URINE DRUG SCREEN (TOXICOLOGY) (12/27/2024 5:42 AM CDT) PHENCYCLIDINE PCP (U) NEGATIVE NEGATIVE 12/27/2024 7:06 AM CDT [facility] BENZODIAZEPINES SCREEN (U) NEGATIVE NEGATIVE 12/27/2024 7:06 AM CDT [facility] COCAINE METABOLITES (U) NEGATIVE NEGATIVE 12/27/2024 7:06 AM CDT [facility] AMPHETAMINE (U) POSITIVE SCREEN RESULT, IF CONFIRMATION DESIRED PLEASE CONTACT LAB WITHIN ONE WEEK. (A) NEGATIVE 12/27/2024 7:06 AM CDT [facility] CANNABINOIDS SCREEN (U) NEGATIVE NEGATIVE 12/27/2024 7:06 AM CDT [facility] OPIATE SCREEN (U) POSITIVE SCREEN RESULT, IF CONFIRMATION DESIRED PLEASE CONTACT LAB WITHIN ONE WEEK. (A) NEGATIVE 12/27/2024 7:06 AM CDT [facility] BARBITURATES SCREEN (U) NEGATIVE NEGATIVE 12/27/2024 7:06 AM CDT [facility] URINE TOX COMMENT Unconfirmed screening results are to be used only for medical purposes. 12/27/2024 5:54 AM CDT [facility] CUTOFF CONCENTRATION (U) Cut-off Concentration for a positive result 12/27/2024 5:54 AM CDT [facility] Comment: Phencyclidine 25 ng/mL Benzodiazepines 200 ng/mL Cocaine 300 ng/mL Amphetamine 1000 ng/mL Cannabinoids 50 ng/mL Opiates 300 ng/mL Barbiturates 200 ng/mL URINE SPECIMEN / Unknown 12/27/2024 5:42 AM CDT Niru Diaz DO URINE ORDERABLES Final Resu lt [facility] [address] [place] [address], [phone] * (ABNORMAL) URINALYSIS (12/27/2024 5:42 AM CDT) COLOR (U) YELLOW 12/27/2024 7:01 AM CDT [facility] TRANSPARENCY CLEAR 12/27/2024 7:01 AM CDT [facility] SPECIFIC GRAVITY (U) 1.020 1.002 - 1.035 12/27/2024 7:01 AM CDT [facility] U PH 5.0 5 - 8 12/27/2024 7:01 AM CDT [facility] PROTEIN RANDOM (U) 20(A) NEGATIVE 12/27/2024 7:01 AM CDT [facility] GLUCOSE (U) NEGATIVE NEGATIVE MG/DL 12/27/2024 7:01 AM CDT [facility] KETONES MG/DL (U) NEGATIVE NEGATIVE 12/27/2024 7:01 AM CDT [facility] BILIRUBIN (U) NEGATIVE NEGATIVE 12/27/2024 7:01 AM CDT [facility] BLOOD (U) NEGATIVE NEGATIVE 12/27/2024 7:01 AM CDT [facility] NITRITES NEGATIVE NEGATIVE 12/27/2024 7:01 AM CDT [facility] UROBILINOGEN NORMAL 0 - 1 EU/DL 12/27/2024 7:01 AM CDT [facility] LEUKOCYTES (U) NEGATIVE NEGATIVE 12/27/2024 7:01 AM CDT [facility] RBC/HPF <1 0 - 3 /HPF 12/27/2024 7:01 AM CDT [facility] WBC/HPF 2 0 - 6 /HPF 12/27/2024 7:01 AM CDT [facility] BACTERIA (U) PRESENT /HPF 12/27/2024 7:01 AM CDT [facility] SQUAMOUS EPITHELIALS 2 12/27/2024 7:01 AM CDT [facility] AMORPHOUS SEDIMENT PRESENT 12/27/2024 7:01 AM CDT [facility] URINE SPECIMEN OBTAINED BY CLEAN CATCH PROCEDURE / Unknown 12/27/2024 5:42 AM CDT us Angel Gonzalez MD URINE ORDERABLES Final Res ult [facility] [address] [place] [address], [phone] * (ABNORMAL) COMPREHENSIVE METABOLIC PANEL (12/27/2024 4:10 AM CDT) SODIUM S/P/B 138 136 - 145 MMOL/L 12/27/2024 5:04 AM CDT [facility] POTASSIUM S/P/B 4.6 3.5 - 5.1 MMOL/L 12/27/2024 5:04 AM CDT [facility] CHLORIDE S/P/B 109 97 - 115 MMOL/L 12/27/2024 5:04 AM CDT [facility] CO2 19.2(L) 21.0 - 32.0 MMOL/L 12/27/2024 5:04 AM CDT [facility] GLUCOSE 160(H) 74 - 106 MG/DL 12/27/2024 5:04 AM CDT [facility] BUN 54(H) 7 - 18 MG/DL 12/27/2024 5:04 AM CDT [facility] CREATININE S/P/B 2.16(H) 0.55 - 1.02 MG/DL 12/27/2024 5:04 AM CDT [facility] CALCIUM S/P/B 8.1(L) 8.5 - 10.1 MG/DL 12/27/2024 5:04 AM [facility] BILIRUBIN TOTAL S/P/B 0.3 0.2 - 1.0 MG/DL 12/27/2024 5:04 AM [facility] ALKALINE PHOSPHATASE S/P/B 187(H) 50 - 130 U/L 12/27/2024 5:04 AM [facility] AST 30 15 - 37 U/L 12/27/2024 5:04 AM [facility] ALT 22 13 - 56 U/L 12/27/2024 5:04 AM [facility] TOTAL PROTEIN S/P/B 6.5 6.4 - 8.2 G/DL 12/27/2024 5:04 AM [facility] ALBUMIN S/P/B 2.9(L) 3.4 - 5.0 G/DL 12/27/2024 5:04 AM [facility] ANION GAP 9.8 2.0 - 10.0 MMOL/L 12/27/2024 5:04 AM [facility] OSMOLALITY (CALC) 304 MOSM/KG 025 5:04 AM [facility] Comment:REFERENCE RANGE NOT ESTABLISHED GFR ESTIMATE 25(L) >90 ML/MIN/1. 73 M2 12/27/2024 5:04 AM [facility] GFR NOTES GFR REFERENCE S: 12/27/2024 5:04 AM [facility] Comment: THE ESTIMATED GFR IS CALCULATED USING THE 2020 CKD-EPI EQUATION. THE FOLLOWING CATEGORIES FOR GRADING RENAL FUNCTION ARE RECOMMENDED BY THE INTERNATIONAL SOCIETY OF NEPHROLOGY (KDIGO 2012 CLINICAL PRACTICE GUIDELINE). G1,NORMAL OR HIGH: >89 ml/min/1.73 m2 G2,MILDLY DECREASED: 60-89 ml/min/1.73 m2 G3A,MILDLY TO MODERATELY DECREASED: 45-59 ml/min/1.73 m2 G3B,MODERATELY TO SEVERELY DECREASED: 30-44 ml/min/1.73 m2 G4,SEVERELY DECREASED: 15-29 ml/min/1.73 m2 G5,KIDNEY FAILURE: <15 ml/min/1.73 m2 12/27/2024 4:10 AM CDT Angel Gonzalez MD LABORATORY Final Resu lt [facility] [address] [place] [address], [phone] * MAMMOGRAM GENERIC (11/30/2016 4:32 PM CDT) Anatomical Region Laterality Modality Other 11/30/2016 4:32 PM CDT 11/30/2016 4:32 PM CDT Narrative 11/30/2016 4:41 PM CDT [facility] ADMIT/SERVICE DATE: 11/18/16 ACCT: [id number] DISCHARGE DATE: : 1960 SEX: F ORD SITE: [facility] PT TYPE: REG CLI ORDERING MD: SHAN DUNBAR MD STUDY DATE REPORT # ORDER # EXT ORDER ID [id number]; [id number]; [id number]; [id number]; [id number] PROC CODE: AXILNVRT PROCEDURE DESCRIPTION: US AXILLA NON-VASC RT ADDENDUM #1 IMPRESSION: NO MAMMOGRAPHIC FINDINGS SUGGESTIVE OF MALIGNANCY. NO INTERVAL CHANGE SEEN FROM PRIOR STUDY. ASSESSMENT: ACR BI-RADS CATEGORY 2 - BENIGN. RECOMMENDATION: 1: CLINICAL MANAGEMENT BILATERAL COMMENTS: LACK OF CORRELATE ON ULTRASOUND OR MAMMOGRAM OR LACK OF CHANGE COMMENTS: LACK OF CORRELATE ON ULTRASOUND OR MAMMOGRAM OR LACK OF CHANGE FROM PRIOR MAMMOGRAM SHOULD NOT DELAY BIOPSY OR FURTHER EVALUATION WITH X-RAY PAIN IF CLINICALLY INDICATED. EXAMINATION: BILATERAL SCREENING MAMMOGRAM [id number], [id number] COMPARISON: OUTSIDE STUDY 07/29/2011. TISSUE DENSITY: THE BREAST TISSUE CONTAINS SCATTERED FIBROGLANDULAR DENSITIES. FINDINGS: NO SUSPICIOUS MASSES, MALIGNANT APPEARING CALCIFICATIONS, SKIN THICKENING OR OTHER ABNORMALITIES ARE PRESENT. NO SIGNIFICANT CHANGE FROM THE PRIOR EXAM. ELECTRONICALLY SIGNED BY: SHAN VORA11/30/2016 4:36 PM ORIGINAL REPORT IMPRESSION: NO MAMMOGRAPHIC FINDINGS SUGGESTIVE OF MALIGNANCY ASSESSMENT: ACR BI-RADS CATEGORY 2 - BENIGN. RECOMMENDATION: 1: CLINICAL MANAGEMENT BILATERAL COMMENTS: LACK OF CORRELATE ON ULTRASOUND OR MAMMOGRAM SHOULD NOT DELAY BIOPSY OR OTHER FURTHER EVALUATION OF AXILLARY PAIN CLINICALLY INDICATED. EXAMINATION: BILATERAL DIAGNOSTIC MAMMOGRAM WITH BILATERAL ULTRASOUND. [id number], [id number] CLINICAL HISTORY: BILATERAL AXILLARY PAIN COMPARISON: NONE TECHNIQUE: BILATERAL DIAGNOSTIC MAMMOGRAPHY AND ULTRASOUND WAS PERFORMED. THIS STUDY WAS READ WITH THE ASSISTANCE OF A COMPUTER-AIDED DETECTION SYSTEM. TISSUE DENSITY: THE BREAST TISSUE CONTAINS SCATTERED FIBROGLANDULAR DENSITIES. FINDINGS: NO SUSPICIOUS MASSES, MALIGNANT APPEARING CALCIFICATIONS, SKIN THICKENING OR OTHER ABNORMALITIES ARE PRESENT. BILATERAL NORMAL-APPEARING AXILLARY LYMPH NODES ARE NOTED. THESE FINDINGS ARE CONFIRMED ON FREE HAND ULTRASOUND WITH VISUALIZATION OF BILATERAL AXILLARY NORMAL-APPEARING LYMPH NODES. NO SUSPICIOUS MASS IS SEEN. EXAMINATION: BREAST ULTRASOUND FINDINGS: SEE COMBINED REPORT ABOVE. EXAMINATION: BREAST ULTRASOUND FINDINGS: SEE COMBINED REPORT ABOVE. ELECTRONICALLY SIGNED BY: SHAN VORA11/18/2016 4:42 PM Procedure Note Jaime Echevarria MD - 01/11/2018 [facility] ADMIT/SERVICE DATE:11/18/16 ACCT: [id number] DISCHARGE DATE: : 1960 SEX: F [facility]D SITE: [facility] PT TYPE: REG CLI ORDERING MD:SHAN DUNBAR MD STUDY DATE REPORT # ORDER # EXT ORDER ID 11/18/16 [id number]; [id number]; [id number]; [id number]; [id number] PROC CODE: AXILNVRT PROCEDURE DESCRIPTION: US AXILLA NON-VASC RT ADDENDUM #1 IMPRESSION: NO MAMMOGRAPHIC FINDINGS SUGGESTIVE OF MALIGNANCY. NO INTERVAL CHANGE SEEN FROM PRIOR STUDY. ASSESSMENT: ACR BI-RADS CATEGORY 2 - BENIGN. RECOMMENDATION: 1: CLINICAL MANAGEMENT BILATERAL COMMENTS: LACK OF CORRELATE ON ULTRASOUND OR MAMMOGRAM OR LACK OF CHANGE COMMENTS: LACK OF CORRELATE ON ULTRASOUND OR MAMMOGRAM OR LACK OF CHANGE FROM PRIOR MAMMOGRAM SHOULD NOT DELAY BIOPSY OR FURTHER EVALUATION WITH X-RAY PAIN IF CLINICALLY INDICATED. EXAMINATION: BILATERAL SCREENING MAMMOGRAM [id number], [id number] COMPARISON: OUTSIDE STUDY 07/29/2011. TISSUE DENSITY: THE BREAST TISSUE CONTAINS SCATTERED FIBROGLANDULAR DENSITIES. FINDINGS: NO SUSPICIOUS MASSES, MALIGNANT APPEARING CALCIFICATIONS, SKIN THICKENING OR OTHER ABNORMALITIES ARE PRESENT. NO SIGNIFICANT CHANGE FROM THE PRIOR EXAM. ELECTRONICALLY SIGNED BY: SHAN VORA11/30/2016 4:36 PM ORIGINAL REPORT IMPRESSION: NO MAMMOGRAPHIC FINDINGS SUGGESTIVE OF MALIGNANCY ASSESSMENT: ACR BI-RADS CATEGORY 2 - BENIGN. RECOMMENDATION: 1: CLINICAL MANAGEMENT BILATERAL COMMENTS: LACK OF CORRELATE ON ULTRASOUND OR MAMMOGRAM SHOULD NOT DELAY BIOPSY OR OTHER FURTHER EVALUATION OF AXILLARY PAIN CLINICALLY INDICATED. EXAMINATION: BILATERAL DIAGNOSTIC MAMMOGRAM WITH BILATERAL ULTRASOUND. [id number], [id number] CLINICAL HISTORY: BILATERAL AXILLARY PAIN COMPARISON: NONE TECHNIQUE: BILATERAL DIAGNOSTIC MAMMOGRAPHY AND ULTRASOUND WAS PERFORMED. THIS STUDY WAS READ WITH THE ASSISTANCE OF A COMPUTER-AIDED DETECTION SYSTEM. TISSUE DENSITY: THE BREAST TISSUE CONTAINS SCATTERED FIBROGLANDULAR DENSITIES. FINDINGS: NO SUSPICIOUS MASSES, MALIGNANT APPEARING CALCIFICATIONS, SKIN THICKENING OR OTHER ABNORMALITIES ARE PRESENT. BILATERAL NORMAL-APPEARING AXILLARY LYMPH NODES ARE NOTED. THESE FINDINGS ARE CONFIRMED ON FREE HAND ULTRASOUND WITH VISUALIZATION OF BILATERAL AXILLARY NORMAL-APPEARING LYMPH NODES. NO SUSPICIOUS MASS IS SEEN. EXAMINATION: BREAST ULTRASOUND FINDINGS: SEE COMBINED REPORT ABOVE. EXAMINATION: BREAST ULTRASOUND FINDINGS: SEE COMBINED REPORT ABOVE. ELECTRONICALLY SIGNED BY: SHAN ACE 4:42 PM us Shan Dunbar DO SCANNING Final Resul t * Colonoscopy (03/20/2009 12:00 AM [facility]) 03/20/2009 03/20/2009 Narrative [facility] TO EPIC CONVERSION - 03/20/2009 12:00 AM [facility] Documented hx of procedure Procedure Note Jaime Echevarria MD - 01/21/2018 Documented hx of procedure us Generic Conversion Md ECHE[facility] GI PROCEDURE ORDERABLES Final Result [facility] TO EPIC CONVERSION from Last 3 Months or Most Recently Relevant to Health Maintenance Insurance [facility] [place] [address] FORMERLY [facility], [facility] Advance Directives * Full Code (Latest Code Status on File) Date Activated Date Inactivated Comments 12/27/2024 6:46 AM 01/05/2025 5:52 PM * Full Code Date Activated Date Inactivated Comments 12/27/2024 3:44 AM 12/27/2024 6:45 AM Care Teams Marking Stitcher Relationship Specialty Start Date End Date Sumit Caballero MD [address] [place] [address] PCP - General INTERNAL MEDICINE 11/30/18
--- NOTE | 2025-01-07 22:45 | ED.ABDPAIN ---
HPI - Abdominal Pain General Chief Complaint: Abdominal Pain Stated Complaint: Postoperative Pain Time Seen by Provider: 01/07/25 22:41 Source: patient Mode of arrival: ambulatory Limitations: no limitations History of Present Illness HPI narrative: Patient is a 64-year-old female with a post surgical abdomen from a week and half ago done in [place] for ischemic bowel. She is having continued pain in the abdomen postoperatively. She was on Percocet but she ran out of Percocet. Her doctor is out of town who did the surgery. She was sent to the emergency room. She has midline large linear scar with kristi still present and a left mid abdomen stoma for stool. She has pain at both sites. MD elicited complaint: abdominal pain Pertinent past history: other (Ischemic bowel, hyperlipidemia, hypertension) Onset (ago): week(s) (One and half weeks ago) Pain Consistency: constant Location: diffuse (Specifically at the site of incision and stoma) Severity: moderate Pain scale (0-10): 5 Quality: sharp Radiation: none Migration to: no migration Exacerbating factors: nothing Relieving factors: other (Patient was taking Percocet but she ran out at this time) Context: confirms recent surgery/procedure (Ischemic bowel resection at [facility] in [place] a week and half ago) Associated symptoms: denies other symptoms Treatments prior to arrival: prescription analgesics (Percocet) Related Data Home Medications ?Medication ?Instructions ?Recorded ?Confirmed ?Last Taken ?Type lisinopril 20 mg tablet 10 mg PO HS 11/03/19 12/03/22 Unknown History simvastatin 10 mg tablet 10 mg PO DAILY 11/03/19 12/03/22 Unknown History Allergies Allergy/AdvReac Type Severity Reaction Status Date / Time Penicillins Allergy Intermediate Hives Verified 01/07/25 23:32 trimethobenzamide (Tigan) Allergy Intermediate Vomiting Verified 01/07/25 23:32 varenicline (Chantix) Allergy Intermediate Vomiting Verified 01/07/25 23:32 NSAIDS (Non-Steroidal Allergy Mild abdominal Verified 01/07/25 23:32 Anti-Inflamma pain PENICILLIN Allergy Hives Uncoded 12/03/22 12:12 TRIMETHOBENZAMIDE HCL Allergy Unknown Uncoded 12/03/22 12:12 Review of Systems Review of Systems: All systems reviewed & are unremarkable except as noted in HPI and below Constitutional: Constitutional: Reports no additional constitutional complaints Eyes: Eyes: Reports no additional eye complaints ENT: Reports system reviewed and no additional complaints, except as documented Cardiovascular: Cardiovascular: Reports no additional cardiovascular complaints Respiratory: Respiratory: Reports no additional respiratory complaints Gastrointestinal: Gastrointestinal: Reports no additional gastrointestinal complaints Genitourinary: Genitourinary: Reports no additional female genitourinary complaints Musculoskeletal: Musculoskeletal: Reports no additional musculoskeletal complaints Integumentary/Breasts: Skin/Breast: Reports system reviewed and no additional complaints, except as docu Neurologic: Reports system reviewed and no additional complaints, except as documented Psychiatric: Psychiatric: Reports no additional psychiatric complaints Endocrine: Endocrine: Reports no additional endocrine complaints Hematologic/Lymphatic: Hematologic/Lymphatic: Reports no additional hematologic/lymphatic complaints Allergic/Immunologic: Allergic/Immunologic: Reports no additional allergic/immunologic complaints PMFSH Past Medical History Medical History Emphysema lung Hyperlipidemia Hypertension Family History Family History Father Family history of type 2 diabetes mellitus Hypertension Mother Hypertension Sibling No problems noted. Social History Social History Smoking status: Current every day smoker Gender identity (if verbalized by the patient): Female Exam Const: General: healthy appearing Nutritional Appearance: well nourished Orientation/consciousness: patient oriented x3 HENMT: Head: normal to inspection Ears: external ears normal Face/Nose/Sinus: Normal external nose present Eyes: Conjunctivae: conjunctivae normal Pupils: Equal, round and reactive pupils present EOM: EOMs intact bilaterally Neck: Neck: normal visual inspection Chest: Chest palpation & inspection: normal inspection of the chest Resp: Effort & Inspection: normal respiratory effort and not labored Auscultation: clear to auscultation bilaterally and no crackles Cardio: Rate: regular rate Rhythm: regular rhythm Heart sounds: no murmurs GI: Inspection: non-distended GI Palp: Yes Soft to palpation, Yes Tenderness to palpation present (GI) (Diffuse abdomen), Yes Guarding due to palpation present (GI), No Rigid due to palpation, No Hernia present, No Palpable mass present and No Rebound tenderness present Auscultation: normal bowel sounds Other: Midline incision is clean dry and intact with kristi still present; Stoma on the left abdomen is in place and appears appropriately working at this time : General: Yes bladder normal to palpation Back/Spine/Pelvis: Back: no CVA tenderness Skin: General skin exam: normal color Rashes: no rashes Wounds: wound noted Other: See abdomen exam Neuro: General: patient oriented x3, moves all extremities and no meningeal signs Extrem: General: normal to inspection, no clubbing, cyanosis or edema and no pedal edema Psych: Mental Status: mental status grossly normal Affect: normal affect Attitude: cooperative Course Vital Signs Vital signs: Vital Signs Temperature 36.4 C L 01/07/25 22:40 Pulse Rate 82 01/07/25 22:40 Respiratory Rate 15 01/07/25 22:40 Blood Pressure 134/55 L 01/07/25 22:40 Pulse Oximetry 97 01/07/25 22:40 Oxygen Delivery Room Air 01/07/25 22:40 Temperature 36.8 C 01/08/25 02:07 Pulse Rate 97 01/08/25 01:57 Respiratory Rate 20 01/08/25 01:57 Blood Pressure 125/61 01/08/25 01:57 Pulse Oximetry 98 01/08/25 01:57 Oxygen Delivery Room Air 01/08/25 01:57 Oxygen Flow Rate 2 01/08/25 01:35 MDM - Abdominal Pain MDM Narrative Medical decision making narrative: Patient is a 64-year-old female with surgery of her abdomen for ischemic bowel resection week and half ago having continued pain and out of pain medicine. CT scan. Labs. Pain control. CT scan is concerning for AAA with a dissection flap newly found tonight with colitis postoperatively. Patient was accepted ER to ER at [facility] by the trauma surgeon. Patient is going to sign AMA and she is AAO x4 with decision-making capacity to make decision to leave against medical advice and understands that chronic permanent damage may occur versus . Form signed. She said she will be coming back in the next short period of time to be transferred after going home and dealing with some problems at home. She understands the magnitude of this situation and could occur. She also has family in the room to help her understand at the same time. Everyone is trying to get her to stay but she would like to leave at this time to deal with some home problems. Patient left AMA and then returned within 30 minutes after riding home and taking care of business. She does not appear to be intoxicated. It appears she had to deal with animals at home and family. All in all, the patient is ready for transfer ER to ER as planned 30 minutes prior at this time. No new changes or complaints at this time. There will be another chart opened however nothing new will be different than this chart. She is ready for transfer. They are going to be looking at the a abdominal aortic aneurysm with a dissection flap and colitis issues. She did not get the Flagyl as she left AMA too quickly. Will let them make decisions on antibiotics at the [facility]. Vital signs stable. Exam stable. Reviewed labs from recent encounter. Reviewed EKG. There are some EKG changes that are suspicious for ischemia and that will be further evaluated at the ER. Her troponin is normal. She is ready for transfer at this time. Lab Data Attestation: I reviewed the patient's lab results. 01/07/25 23:01 01/07/25 23:01 Labs: Lab Results 01/07/25 01/08/25 Range/Units 23:01 00:27 WBC 13.1 H (4.8-10.8) K/mm3 RBC 4.60 (4.20-5.40) M/mm3 Hgb 9.5 L (11.7-13.8) g/dL Hct 34.1 L (35.0-42.0) % MCV 74.1 L (78.0-102.0) fL MCH 20.7 L (27.0-31.0) pg MCHC 27.9 L (32-36) g/dL RDW 31.2 H (11.6-14.4) % Plt Count 818 H (150-420) K/mm3 MPV 8.8 L (9.2-11.8) fl Immature Gran % (Auto) 0.7 H (0.0-0.0) % Neut % (Auto) 69.9 (50.0-70.0) % Lymph % (Auto) 13.7 L (18.0-42.0) % [place] % (Auto) 9.3 (2.0-11.0) % Eos % (Auto) 5.3 (1.0-6.0) % Baso % (Auto) 1.1 H (0.0-1.0) % Lymph # (Auto) 1.80 (1.10-4.50) K/mm3 [place] # (Auto) 1.22 H (0.10-0.90) K/mm3 Eos # (Auto) 0.69 H (0.02-0.50) K/mm3 Baso # (Auto) 0.14 H (0.00-0.10) K/mm3 Abs Immat Gran (auto) 0.09 H (0.00-0.00) K/mm3 Absolute Neuts (auto) 9.16 H (1.70-7.20) K/mm3 Absolute Nucleated RBC 0.00 (0.00-0.00) K/mm3 Nucleated RBC % 0.0 (0-0.0) % % Immature Plt Fraction 0.8 L (1.0-7.0) % PT 10.7 (9.50-12.1) Seconds INR 1.0 APTT 26.2 (23.9-30.70) Sec Sodium 137 (137-145) mmol/L Potassium 4.0 (3.4-5.0) mmol/L Chloride 101 (98-107) mmol/L Carbon Dioxide 29 (22-30) mmol/L Anion Gap 7 (4-12) mmol/L BUN 21 H D (7-17) mg/dL Creatinine 0.83 (0.7-1.0) mg/dL Estim Creat Clear Calc 57 ml/min Estimated GFR > 60 (59 - ) Glucose 136 H (65-110) mg/dL Calculated Osmolality 289 (285-295) mOsm/kg Lactic Acid 1.5 (0.4-2.0) mmol/L Calcium 8.5 (8.4-10.2) mg/dL Total Bilirubin 0.4 (0.2-1.3) mg/dL AST 40 H (14-36) U/L ALT 25 (6-35) U/L Alkaline Phosphatase 235 H (38-126) U/L Troponin I 0.013 (0.000-0.034) ng/mL Total Protein 7.4 (6.3-8.2) g/dL Albumin 3.6 (3.5-5.1) g/dL Lipase 129 (23-300) U/L Urine Color Yellow (Yellow) Urine Appearance Clear (Clear) Urine pH 6.5 (5.0-8.0) Ur Specific [place] <= 1.005 L (1.010-1.020) Urine Protein Negative (Negative) Urine Glucose (UA) Negative (Negative) Urine Ketones Negative (Negative) Ur Blood (Man) Negative (Negative) Urine Nitrate Negative (Negative) Urine Bilirubin Negative (Negative) Urine Urobilinogen 1.0 (0.2-1.0) mg/dL Leukocyte Esterase Rfl Negative (Negative) LOREE/UL Imaging Data Attestation: I personally reviewed and interpreted this imaging study as follows: Radiologist's impression: CT scan of the abdomen and pelvis shows multiple areas of colitis and stranding with also a finding of short segment dissection flap in the distal infrarenal aorta which is new comparing to old CT scan done a few weeks ago ECG Data EKG #1: Attestation: I personally reviewed and interpreted this ECG as follows: ECG completion date: 01/08/25 ECG completion time: 02:28 normal rate, sinus rhythm, no ectopy, non-specific ST changes, normal QRS, normal QT and left axis Discharge Plan Discharge Clinical Impression: Abdominal aortic aneurysm dissection, Colitis, History of ischemic bowel disease Patient Disposition: Left Against Medical Advice Condition: Serious Patient Language: Japanese Prescriptions: No Action azithromycin [Zithromax] 250 mg tablet See Rx Instructions .ROUTE .COMPLEX Qty: 6 0RF Rx Instructions: For 250 mg dose pack: take 500 mg today (day 1), then 250 mg for 4 days (days 2-5) lisinopril 20 mg tablet 10 mg PO HS simvastatin 10 mg tablet 10 mg PO DAILY Zyrtec 10 mg capsule 10 mg PO BID PRN (Reason: allergy symptoms) Qty: 30 0RF prednisone 20 mg tablet 40 mg PO DAILY 5 Days Qty: 10 0RF clindamycin HCl [Cleocin HCl] 150 mg capsule 450 mg PO Q8H 10 Days Qty: 90 0RF Follow-up/Referrals: Sarika Dewey NP [Primary Care Provider, [facility]] Time of Disposition: 02:01
--- OUTSIDE RECORDS SUMMARY | 2025-01-07 23:03 | XMS_ITS | Clinical Summary ---
Author Organization [facility] Address [address] [place] [address] Care Team Providers Care Director Of Emergency Nursing Name Role Phone Sumit Caballero MD Primary Care Provider [phone] Allergies Active Allergy Reactions Criticality Noted Date [...] 01/07/2025 1:15 PM CDT Home Care Visit [facility] Home Care [facility] [address] [place] [address] Maribel Sagastume RN SN NON ADMIT SOC 12/28/2024 12:34 PM CDT Anesthesia [facility] [address] [place] [address] Kaushik Burleson MD 12/28/2024 11:25 AM CDT - 12/28/2024 3:16 PM CDT [facility] [address] [place] [address] Niru Diaz, DO RE-LOOK LAPAROTOMY with creation of end colostomy 12/27/2024 6:23 AM CDT Anesthesia Event [facility] [address] [place] [address] Shan Mittal MD Lajeunesse, Kaylie, CRNA 12/27/2024 5:55 AM CDT - 12/27/2024 7:47 AM CDT [facility] [address] [place] [address] Niru Diaz, DO LAPAROTOMY EXPLORATORY WITH MOBILIZATION OF SPLENIC FLEXURE AND DESCENDING COLON RESECTION, ABTHERA WOUND VAC PLACEMENT 12/27/2024 2:43 AM CDT - 01/05/2025 3:46 PM CDT Hospital En[place] [facility] [address] [place] [address] Angel Gonzalez MD Imam, Syed M, DO Zhen, Daniel P, MD Gowda, Chetan N, MD Discharge Disposition: Home or Self Care (Routine Discharge) 12/27/2024 Travel from Last 3 Months Social History Tobacco Use Types Packs/Day Years Used Date Smoking Tobacco: Every Day Cigarettes Smokeless Tobacco: Current Tobacco Cessation:Ready to Q uit: Not Asked; Counseling Given: Not Answered [facility] [employer] Answer Date Recorded In the past 12 [...] any time in the past 12 m [facility], were you homeless or living in a chcf (including now)? No 12/27/2024 Comments No Sex [...] Info) Description 01/08/2025 8:45 AM CDT Appointment [facility] Home Care 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 SODIUM S/P/B 138 136 - 145 MMOL/L 01/04/2025 5:55 AM CDT [facility] POTASSIUM S/P/B 4.4 3.5 - 5.1 MMOL/L 01/04/2025 5:55 AM CDT [facility] Comment:MILD HEMOLYSIS, RESU LT MAY BE AFFECTED. CHLORIDE S/P/B 103 97 - 115 MMOL/L 01/04/2025 5:55 AM CDT [facility] CO2 30.9 21.0 - 32.0 MMOL/L 01/04/2025 5:55 AM CDT [facility] GLUCOSE 122(H) 74 - 106 MG/DL 01/04/2025 5:55 AM CDT [facility] BUN 11 7 - 18 MG/DL 01/04/2025 5:55 AM CDT [facility] CREATININE S/P/B 0.52(L) 0.55 - 1.02 MG/DL 01/04/2025 5:55 AM CDT [facility] CALCIUM S/P/B 8.5 8.5 - 10.1 MG/DL 01/04/2025 5:55 AM CDT [facility] ANION GAP 4.1 2.0 - 10.0 MMOL/L 01/04/2025 5:55 AM CDT [facility] OSMOLALITY (CALC) 287 MOSM/KG 025 5:55 AM CDT [facility] Comment:REFERENCE RANGE NOT ESTABLISHED GFR ESTIMATE >90 >90 ML/MIN/1. 73 M2 01/04/2025 5:55 AM CDT [facility] GFR NOTES GFR REFERENCE S: 01/04/2025 5:55 AM CDT [facility] Comment: THE ESTIMATED GFR IS [...] us Montez Molina MD LABORATORY Final Result [facility] [address] [place] [address], [id number] * (ABNORMAL) CBC W/DIFF AUTOMATED (01/04/2025 4:40 AM CDT) Only the most recent of9 resultswithin the time period is included. WBC 10.58 4.00 - 10.80 x10'3/uL 01/04/2025 5:06 AM CDT [facility] RBC 4.43 4.10 - 5.40 x10'6/uL 01/04/2025 5:06 AM CDT [facility] HGB 8.8(L) 12.0 - 16.0 G/DL 01/04/2025 5:06 AM CDT [facility] HCT 32.4(L) 36.0 - 47.0 % 01/04/2025 5:06 AM CDT [facility] MCV 73.1(L) 78.0 - 100.0 FL 01/04/2025 5:06 AM CDT [facility] MCH 19.9(L) 27.0 - 31.0 PG 01/04/2025 5:06 AM CDT [facility] MCHC 27.2(L) 33.0 - 36.0 G/DL 01/04/2025 5:06 AM CDT [facility] RDW 29.3(H) 11.5 - 14.5 % 01/04/2025 5:06 AM CDT [facility] PLT 544(H) 150 - 350 x10'3/uL 01/04/2025 5:06 AM CDT [facility] MPV 9.5 7.4 - 10.4 FL 01/04/2025 5:06 AM CDT [facility] DIFFERENTIAL TYPE AUTOMATED DIFFERENTIAL 01/04/2025 6:09 AM CDT [facility] SEG NEUTROPHILS 67.8 % 6:09 AM CDT [facility] LYMPHOCYTES 13.9 % 01/04/2025 6:09 AM CDT [facility] MONOCYTES 8.5 % 01/04/2025 6:09 AM CDT [facility] EOSINOPHILS 7.1 % 01/04/2025 6:09 AM CDT [facility] BASOPHILS 0.8 % 01/04/2025 6:09 AM CDT [facility] IMMATURE GRANS % 1.7 % 01/05/20 6:09 AM CDT [facility] ABS. NEUTROPHILS 7.20 1.60 - 8.30 x10'3/uL 01/04/2025 6:09 AM CDT [facility] ABS. LYMPHOCYTES 1.47 0.80 - 4.70 x10'3/uL 01/04/2025 6:09 AM CDT [facility] ABS. MONOCYTES 0.90 0.00 - 1.50 x10'3/uL 01/04/2025 6:09 AM CDT [facility] ABS. EOSINOPHILS 0.75(H) 0.00 - 0.40 x10'3/uL 01/04/2025 6:09 AM CDT [facility] ABS. BASOPHILS 0.08 0.00 - 0.20 x10'3/uL 01/04/2025 6:09 AM CDT [facility] ABS. IMMATURE GRANULOCYTES 0.18(H) 0.00 - 0.03 x10'3/uL 01/04/2025 6:09 AM CDT [facility] ABS. NUCLEATED RBC'S 0.02(H) 0.00 - 0.01 x10'3/uL 01/04/2025 6:09 AM CDT [facility] NRBC % 0.2 % 01/04/2025 6:09 AM CDT [facility] RBC MORPHOLOGY SLIDE REVIEWED 2024 6:09 AM CDT [facility] ANISO MARKED 01/04/2025 6:09 AM CDT [facility] POIKLO MODERATE 01/04/2025 6:09 AM CDT [facility] HYPOCHROMASIA MODERATE 01/04/2025 6:09 AM CDT [facility] MICRO MODERATE 01/04/2025 6:09 AM CDT [facility] POLY SLIGHT 01/04/2025 6:09 AM CDT [facility] OVALOCYTES PRESENT 01/04/2025 6:09 AM CDT [facility] TARGET CELLS PRESENT 01/04/2025 6:09 AM CDT [facility] ACANTHOCYTES PRESENT 01/04/2025 6:09 AM CDT [facility] STOMATOCYTE PRESENT 01/04/2025 6:09 AM CDT [facility] PLT EST. INCREASED 01/04/2025 6:09 AM CDT [facility] 01/04/2025 4:40 AM CDT us Montez Molina MD LABORATORY Final Result [facility] [address] [place] [address], [id number] * PHOSPHORUS, INORGANIC PHOSPHATE (01/04/2025 4:40 AM CDT) Only the most recent of8 resultswithin the time period is included. PHOSPHORUS 4.3 2.5 - 4.9 MG/DL 01/04/2025 5:55 AM CDT [facility] 01/04/2025 4:40 AM CDT us Montez Molina MD LABORATORY Final Result Performing Organization Address [facility] de Phone Number [facility] [address] [place] [address], [place] [phone] * MAGNESIUM (01/04/2025 4:40 AM CDT) Only the most recent of8 resultswithin the time period is included. MAGNESIUM 1.9 1.6 - 2.6 MG/DL 01/04/2025 5:55 AM CDT [facility] Comment:RESULT QUESTIONABLE DUE TO HEMOLYSIS, RECOMMEND RECOLLECTION. 01/04/2025 4:40 AM CDT us Montez Molina MD LABORATORY Final Result Performing Organization Address [facility] de Phone Number [facility] [address] [place] [address], [place] [phone] * (ABNORMAL) POCT glucose (01/03/2025 11:22 AM CDT) Only the most recent of26 resultswithin the time period is included. GLUCOSE POC 194(H) 70 - 109 01/03/2025 11:32 AM CDT [facility] 01/03/2025 11:2 2 AM CDT us Montez Molina MD POCT ORDERABLES - DEVICE Final Result Performing Organization Address [facility] de Phone Number [facility] [address] [place] [address], [id number] * ECG 12 lead (01/02/2025 10:50 PM CDT) Only the most recent of4 resultswithin the time period is included. ECG QT 392 [facility] ECG QTC 432 [facility] 01/02/2025 10:5 0 PM CDT Narrative 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 : 1960 Requested By: SAIMA HAGER Order Number: [id number] Reading MAXIMINO Pham Measurements Intervals Arbon Rate: 72 P: 63 NM: 165 QRS: 24 QRSD: 95 T: 5 QT: 392 QTc: 432 Interpretive Statements SINUS RHYTHM POSSIBLE RIGHT VENTRICULAR CONDUCTION DELAY NONSPECIFIC ST & T-WAVE ABNORMALITY Procedure Note Camila Pham MD - 01/03/2025 [place] [address] Test Date: 2025-01-02 Pat Name: MAMI TAYLOR Department: 1 Room: [facility] Gender: Female 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 * CT ABD+PEL W CON (01/02/2025 [...] 1:36 PM Narrative 01/02/2025 1:56 PM CDT [facility] [address] [place], [place] [address] EXAMINATION: CT ABD+PEL W CON EXAM DATE: [...] Note Francis Jim Linares DO - 01/02/[address] [address] EXAMINATION: CT ABD+PEL W CON EXAM DATE: [...] resultswithin the time period is included. Pathologist [facility] TROPONIN I HIGH SENSITIVITY 21 0 - 53 ng/L 01/01/2025 7:17 PM CDT [facility] 01/01/2025 6:40 PM CDT Montez Molina MD LABORATORY Final Result Performing Organization Address [facility] de Phone Number [facility] [address] [place] [address], [place] [phone] * C AURIS,PCR,AXILLA/GROIN,NARES (01/01/2025 12:50 PM CDT) Pathologist [facility] KAMLA AURIS (CLARITA/GROIN) Not Detected Not Detected 01/04/2025 2:12 PM CDT [facility] Comment: A Not Detected result [...] analytical performance characteristics have been determined by [facility] [place], [place]. It has not been cleared or approved by the U.S. Food and Drug Administration. This assay has been validated pursuant to the CLIA regulations and is used for clinical purposes. Test Performed by [facility], [facility] [place], [address] [place], [place] Mike Mitchell M.D., Ph.D., Director of Laboratories , CLIA [id number] 01/01/2025 12:5 0 PM CDT Montez Molina MD LABORATORY Final Result [facility] [address] [place] [address], [place] [phone] * (ABNORMAL) HEMOGLOBIN AND HEMATOCRIT (12/30/2024 1:49 PM CDT) HGB 7.9(L) 12.0 - 16.0 G/DL 12/30/2024 2:03 PM CDT [facility] HCT 28.0(L) 36.0 - 47.0 % 12/30/2024 2:03 PM CDT [facility] 12/30/2024 1:49 PM CDT Montez Molina MD LABORATORY Final Result Performing Organization Address [facility] Co de Phone Number [facility] [address] [place] [address], [place] [phone] * TRANSFUSE RED BLOOD CELLS (12/30/2024 11:22 AM CDT) Only the most recent of3 resultswithin the time period is included. Niru Diaz DO NURSING TREATMENT ORDERABLE S - BLOOD ADMIN Final Result * (ABNORMAL) PRO-BRAIN NATRIURETIC PEPTIDE (12/30/2024 2:31 AM CDT) PRO-B TYPE NATRIURETIC PEPTIDE 3,721(H) <125 PG/ML 12/30/2024 5:01 AM CDT [facility] Comment: AGE INDEPENDENT: <300 PG/ML HAS [...] us Saima Hager MD LABORATORY Final Result [facility] [address] [place] [address], [id number] * USE [employer] (12/29/2024 12:25 PM CDT) Anatomical Region Laterality Modality Cardiac Echocardiogram 12/29/2024 9:54 AM CDT Narrative 12/29/2024 5:31 PM CDT Echocardiography Report Pat.Name: MAMI TAYLOR Pat.ID: [id number] St.Date: 12/29/2024 Refer.MD: SAIMA HAGER Exam Time: 9:54:00 AM Study Type:ECHO WITH DOPPLER LIMITED Height: 67 in Weight: 170 lb BSA: 1.89 m2 Age: 11 1960,64Y Sex: F BP: 143/66 HR: 83 bpm Sonogrphr: Alicia Norwood [facility] Pat. Stat.:Inpatient Room: [facility] CPT - 4: 76883 [id number] Reason for Study:assess intracavitary gradient (LVOT), bubble [...] - 12/29/2024 Echocardiography Report Pat.Name: MAMI TAYLOR.ID: [id number] .Date: 12/29/2024 Refer.MD: SAIMA HAGER Exam Time: 9:54:00 AM Study Type:ECHO WITH DOPPLER LIMITED Height: 67 in Weight: 170 lb BSA: 1.89 m2 Age: 11 1960,64Y Sex: F BP: 143/66 HR: 83 bpm Sonogrphr: Alicia Norwood [facility] Pat. Stat.:Inpatient Room: [facility] CPT - 4: 63811 [id number] Reason for Study:assess intracavitary gradient (LVOT), bubble [...] resultswithin the time period is included. PATHOLOGY [facility] Department of Laboratory Medicine [address] [place] [address] , extension [phone] Pathology Report Surgical Pathology Report Name: MAMI TAYLOR Specimen #: [id number] Age: 11 1960 (Age: 64) Location: [facility] Sex: F Procedure Date: 12/28/2024 Hospital #: [id number] Date Received: 12/30/2024 Date Reported: 12/31/2024 Provider: [...] Gross examination (when applicable) was performed at [facility], [address] [place] [address]. This case was interpreted and signed out at [facility], [address] [place] [address]. Electronically Signed Out GARCÍA GROVES MD [facility] TISSUE (OTHER (type in comments)) 12/28/2024 1:30 PM CDT us Niru Diaz DO PATHOLOGY/CYTOLOGY ORDERABL ES Final Result [facility] [address] [place] [address], [id number] * USE ECHOCARDIOGRAM W CON (12/27/2024 2:05 PM CDT) Anatomical Region Laterality Modality NA Echocardiogram 12/27/2024 1:35 PM CDT Narrative 12/27/2024 2:54 PM CDT Echocardiography Report Pat.Name: MAMI TAYLOR.ID: [id number] .Date: 12/27/2024 Refer: [id number] NONE PROVIDER EWDPROV EWDPROV Exam Time: 1:35:00 PM Study Type:ECHO WITH CARDIAC DOPPLER COMP Height: 67 in Weight: 170 lb BSA: 1.89 m2 Age: 11 1960,64Y Sex: F BP: 118/53 HR: 81 bpm Sonogrphr: HAKEEM Briggs. Stat.:Inpatient Room: [facility] CPT - 4: 11823 Reason for Study:Evaluate for thrombus/vegetations Procedures: 2D, [...] Mass 2D Value 159 g LV Mass [id number] Value 84.1 g/m2 Med MA LV Peak [...] 2.8 cm Right Ventricle 2.3 cm Major Arbon 8.3 cm MMODE TA Tricuspid Annul 2.09 cm <Electronic Signature> 12/27/2024 02:54 PM Gerri Mcneal M.D. Procedure Note Gerri Mcneal, - 12/27/2024 Echocardiography Report Pat.Name: MAMI TAYLOR Rhea.ID: [id number] .Date: 12/27/2024 Refer.: [id number] NONE PROVIDER EWDPROV EWDPROV Exam Time: 1:35:00 PM Study Type:ECHO WITH CARDIAC DOPPLER COMP Height: 67 in Weight: 170 lb BSA: 1.89 m2 Age: 11 1960,64Y Sex: F BP: 118/53 HR: 81 bpm Sonogrphr: HAKEEM Briggs Pat. Stat.:Inpatient Room: [facility] CPT - 4: 18812 Reason for Study:Evaluate for thrombus/vegetations Procedures: 2D, [...] Mass 2D Value 159 g LV Mass [id number] Value 84.1 g/m2 Med MA LV Peak [...] 2.8 cm Right Ventricle 2.3 cm Major Arbon 8.3 cm MMODE TA Tricuspid Annul 2.09 cm <Electronic Signature> 12/27/2024 02:54 PM Gerri Mcneal M.D. Niru J Diaz DO ECHO Final Resul t * (ABNORMAL) POCT ACUTE ARTERIAL PANEL (12/27/2024 10:45 AM CDT) Only the most recent of2 resultswithin the time period is included. SODIUM WHOLE BLOOD 139 138 - 146 mmol/L 12/27/2024 10:51 AM CDT [facility] POTASSIUM WHOLE BLOOD 4.7 3.5 - 4.9 mmol/L 12/27/2024 10:51 AM CDT [facility] CA IONIZED WH BLOOD 1.12 1.12 - 1.32 mmol/L 12/27/2024 10:51 AM CDT [facility] POC PH ARTERIAL 7.285(L) 7.35 - 7.45 12/27/2024 10:51 AM CDT [facility] POC PCO2 ARTERIAL 39.8 35.0 - 45.0 MMHG 12/27/2024 10:51 AM CDT [facility] POC PO2 ARTERIAL 115(H) 80 - 105 MMHG 12/27/2024 10:51 AM CDT [facility] POC HCO3 ARTERIAL 18.9(L) 22 - 26 MMOL/L 12/27/2024 10:51 AM CDT [facility] POC TCO2 ARTERIAL 20(L) 23 - 27 MMOL/L 12/27/2024 10:51 AM CDT [facility] POC BASE DEFICIT ARTERIAL 8(H) 0 - 2 MMOL/L 12/27/2024 10:51 AM CDT [facility] POC HEMATOCRIT 29(L) 38 - 51 % 12/27/2024 10:51 AM CDT [facility] TIME TEST WAS PERFORMED: 1045 12/27/2024 10:51 AM CDT [facility] 12/27/2024 10:4 5 AM CDT us Chidi Gallagher MD POCT ORDERABLES - DEVICE Final Result [id number] [address], [id number] * XR CHEST PORTABLE (12/27/2024 10:36 AM CDT) Anatomical Region Laterality Modality Chest Radiographic Mary ging 12/27/2024 1:44 PM CDT Impressions 12/27/2024 1:46 PM CDT IMPRESSION: The gastric tube is in the stomach. Referred By: PROVIDER NONE Interpreted By: Ayush Real MD, 12/27/2024 1:44 PM Narrative 12/27/2024 1:46 PM [address]T [address] [address] EXAM: XR CHEST PORTABLE DATE: 12/27/2024 1033 hours No comparison INDICATION: Gastric tube placement. TECHNIQUE: One view FINDINGS: Endotracheal tube is about 6 cm above the eunice. Gastric tube is in the stomach. Enlarged heart and central pulmonary vessels. Mild ill-defined lung densities. Procedure Note Ayush Real MD - 12/27/[address] [address] EXAM: XR CHEST PORTABLE DATE: 12/27/2024 1033 [...] - 2.0 MMOL/L 12/27/2024 10:52 AM CDT [facility] 12/27/2024 10:0 8 AM CDT us Chidi Gallagher MD LABORATORY Final Result Performing Organization Address [facility] Co de Phone Number [facility] [address] [place] [address], [place] [phone] * Art Line (12/27/2024 6:56 AM CDT) [...] (comment) (CHG imbedding tegaderm) Nathan Chicas MD [place] ANESTHESIA Final Result * (ABNORMAL) LACTIC ACID W REFLEX (SEPSIS) (12/27/2024 5:54 AM CDT) Only the most recent of2 resultswithin the time period is included. LACTIC ACID VENOUS 3.1(H) 0.4 - 2.0 MMOL/L 12/27/2024 6:46 AM CDT [facility] 12/27/2024 5:54 AM CDT Angel Gonzalez MD LABORATORY Final Resu lt Performing Organization Address [facility]/ZIP Co de Phone Number [facility] [address] [place] [address], [place] [phone] * TYPE & SCREEN (12/27/2024 5:54 AM CDT) UNITS ORDERED 4 12/30/2024 6:44 AM CDT [facility] ABO/RH O POSITIVE 12/27/2024 6:35 AM CDT [facility] ANTIBODY SCREEN NEGATIVE 6:35 AM CDT [facility] SAMPLE EXPIRATION 12/30/2024,2359 12/27/2024 5:58 AM CDT [facility] BLOOD UNIT NUMBER [id number] 12/27/2024 7:10 AM CDT [facility] PRODUCT: PC LEUKOPOOR 12/27/2024 7:10 AM CDT [facility] UNIT DIVISION 00 12/27/2024 7:10 AM CDT [facility] BLOOD UNIT STATUS TRANSFUSED,FINAL 12/28/2024 1:49 AM CDT [facility] ISSUE DATE/TIME [id number] 025 1:49 AM CDT [facility] PRODUCT CODE [id number] 12/28/2024 1:49 AM CDT [facility] ABO/RH Unit O POS 12/28/2024 1:49 AM CDT [facility] ABO/RH UNIT ISBT CODE 5100 12/28/2024 1:49 AM CDT [facility] BLOOD UNIT EXPIRATION DATE [id number] 12/28/2024 1:49 AM CDT [facility] TRANSFUSION STATUS OK TO TRANSFUSE 12/27/2024 7:10 AM CDT [facility] CROSSMATCH COMPATIBLE-EXM 12/27/2024 7:10 AM CDT [facility] BLOOD UNIT NUMBER [id number] 12/27/2024 7:10 AM CDT [facility] PRODUCT: PC LEUKOPOOR 12/27/2024 7:10 AM CDT [facility] UNIT DIVISION 00 12/27/2024 7:10 AM CDT [facility] BLOOD UNIT STATUS TRANSFUSED,FINAL 12/28/2024 1:49 AM CDT [facility] ISSUE DATE/TIME [id number] 025 1:49 AM CDT [facility] PRODUCT CODE [id number] 12/28/2024 1:49 AM CDT [facility] ABO/RH Unit O POS 12/28/2024 1:49 AM CDT [facility] ABO/RH UNIT ISBT CODE 5100 12/28/2024 1:49 AM CDT [facility] BLOOD UNIT EXPIRATION DATE [id number] 12/28/2024 1:49 AM CDT [facility] TRANSFUSION STATUS OK TO TRANSFUSE 12/27/2024 7:10 AM CDT [facility] CROSSMATCH COMPATIBLE-EXM 12/27/2024 7:10 AM CDT [facility] BLOOD UNIT NUMBER [id number] 12/30/2024 8:35 AM CDT [facility] PRODUCT: PC LEUKOPOOR 12/30/2024 8:35 AM CDT [facility] UNIT DIVISION 00 12/30/2024 8:35 AM CDT [facility] BLOOD UNIT STATUS TRANSFUSED,FINAL 12/31/2024 1:09 AM CDT [facility] ISSUE DATE/TIME [id number] 025 1:09 AM CDT [facility] PRODUCT CODE [id number] 12/31/2024 1:09 AM CDT [facility] ABO/RH Unit O POS 12/31/2024 1:09 AM CDT [facility] ABO/RH UNIT ISBT CODE 5100 12/31/2024 1:09 AM CDT [facility] BLOOD UNIT EXPIRATION DATE [id number] 12/31/2024 1:09 AM CDT [facility] TRANSFUSION STATUS OK TO TRANSFUSE 12/30/2024 8:35 AM CDT [facility] CROSSMATCH COMPATIBLE-EXM 12/30/2024 8:35 AM CDT [facility] 12/27/2024 5:5 4 AM CDT Angel Gonzalez MD BLOOD BANK TEST ORDERABLES Final Result Performing Organization Address [facility] Co de Phone Number [facility] [address] [place] [address], [phone] * (ABNORMAL) PROTIME/INR, VENOUS (PROTHROMBIN TIME) (12/27/2024 5:54 AM CDT) PROTIME 15.0(H) 9.4 - 12.5 SEC 12/27/2024 6:37 AM CDT [facility] INR 1.3(H) 0.8 - 1.1 12/27/2024 6:37 AM CDT [facility] 12/27/2024 5:54 AM CDT Niru Diaz DO LABORATORY Final Resul t Performing Organization Address [facility] de Phone Number [facility] [address] [place] [address], [phone] * CULTURE, BACTERIA BLOOD X2 (12/27/2024 5:53 AM CDT) SPEC DESCRIPTION BLOOD 12/27/2024 5:35 AM CDT [facility] SPECIAL REQUESTS NO SPECIAL REQUEST 12/27/2024 5:35 AM CDT [facility] CULTURE RESULT NO GROWTH 5 DAYS 01/01/2025 6:02 AM CDT [facility] BLOOD SPECIMEN OBTAINED FOR BLOOD CULTURE / Unknown 12/27/2024 5:53 AM CDT 12/27/2024 5:54 AM CDT Niru Diaz DO MICROBIOLOGY - GENERAL ORDEde QUINN Final Result [facility] [address] [place] [address], [phone] * (ABNORMAL) URINE DRUG SCREEN (TOXICOLOGY) (12/27/2024 5:42 AM CDT) PHENCYCLIDINE PCP (U) NEGATIVE NEGATIVE 12/27/2024 7:06 AM CDT [facility] BENZODIAZEPINES SCREEN (U) NEGATIVE NEGATIVE 12/27/2024 7:06 AM CDT [facility] COCAINE METABOLITES (U) NEGATIVE NEGATIVE 12/27/2024 7:06 AM CDT [facility] AMPHETAMINE (U) POSITIVE SCREEN RESULT, IF CONFIRMATION DESIRED PLEASE CONTACT LAB WITHIN ONE WEEK. (A) NEGATIVE 12/27/2024 7:06 AM CDT [facility] CANNABINOIDS SCREEN (U) NEGATIVE NEGATIVE 12/27/2024 7:06 AM CDT [facility] OPIATE SCREEN (U) POSITIVE SCREEN RESULT, IF CONFIRMATION DESIRED PLEASE CONTACT LAB WITHIN ONE WEEK. (A) NEGATIVE 12/27/2024 7:06 AM CDT [facility] BARBITURATES SCREEN (U) NEGATIVE NEGATIVE 12/27/2024 7:06 AM CDT [facility] URINE TOX COMMENT Unconfirmed screening results are to be used only for medical purposes. 12/27/2024 5:54 AM CDT [facility] CUTOFF CONCENTRATION (U) Cut-off Concentration for a positive result 12/27/2024 5:54 AM CDT [facility] Comment: Phencyclidine 25 ng/mL Benzodiazepines 200 ng/mL Cocaine 300 ng/mL Amphetamine 1000 ng/mL Cannabinoids 50 ng/mL Opiates 300 ng/mL Barbiturates 200 ng/mL URINE SPECIMEN / Unknown 12/27/2024 5:42 AM CDT Niru Diaz DO URINE ORDERABLES Final Resu lt [facility] [address] [place] [address], [phone] * (ABNORMAL) URINALYSIS (12/27/2024 5:42 AM CDT) COLOR (U) YELLOW 12/27/2024 7:01 AM CDT [facility] TRANSPARENCY CLEAR 12/27/2024 7:01 AM CDT [facility] SPECIFIC GRAVITY (U) 1.020 1.002 - 1.035 12/27/2024 7:01 AM CDT [facility] LAB U PH 5.0 5 - 8 12/27/2024 7:01 AM CDT [facility] PROTEIN RANDOM (U) 20(A) NEGATIVE 12/27/2024 7:01 AM CDT [facility] GLUCOSE (U) NEGATIVE NEGATIVE MG/DL 12/27/2024 7:01 AM CDT [facility] KETONES MG/DL (U) NEGATIVE NEGATIVE 12/27/2024 7:01 AM CDT [facility] BILIRUBIN (U) NEGATIVE NEGATIVE 12/27/2024 7:01 AM CDT [facility] BLOOD (U) NEGATIVE NEGATIVE 12/27/2024 7:01 AM CDT [facility] NITRITES NEGATIVE NEGATIVE 12/27/2024 7:01 AM CDT [facility] UROBILINOGEN NORMAL 0 - 1 EU/DL 12/27/2024 7:01 AM CDT [facility] LEUKOCYTES (U) NEGATIVE NEGATIVE 12/27/2024 7:01 AM CDT [facility] RBC/HPF <1 0 - 3 /HPF 12/27/2024 7:01 AM CDT [facility] WBC/HPF 2 0 - 6 /HPF 12/27/2024 7:01 AM CDT [facility] BACTERIA (U) PRESENT /HPF 12/27/2024 7:01 AM CDT [facility] SQUAMOUS EPITHELIALS 2 12/27/2024 7:01 AM CDT [facility] AMORPHOUS SEDIMENT PRESENT 12/27/2024 7:01 AM CDT [facility] URINE SPECIMEN OBTAINED BY CLEAN CATCH PROCEDURE / Unknown 12/27/2024 5:42 AM CDT us Angel Gonzalez MD URINE ORDERABLES Final Res ult [facility] [address] [place] [address], [id number] * (ABNORMAL) COMPREHENSIVE METABOLIC PANEL (12/27/2024 4:10 AM CDT) SODIUM S/P/B 138 136 - 145 MMOL/L 12/27/2024 5:04 AM CDT [facility] POTASSIUM S/P/B 4.6 3.5 - 5.1 MMOL/L 12/27/2024 5:04 AM CDT [facility] CHLORIDE S/P/B 109 97 - 115 MMOL/L 12/27/2024 5:04 AM CDT [facility] CO2 19.2(L) 21.0 - 32.0 MMOL/L 12/27/2024 5:04 AM CDT [facility] GLUCOSE 160(H) 74 - 106 MG/DL 12/27/2024 5:04 AM CDT [facility] BUN 54(H) 7 - 18 MG/DL 12/27/2024 5:04 AM CDT [facility] CREATININE S/P/B 2.16(H) 0.55 - 1.02 MG/DL 12/27/2024 5:04 AM CDT [facility] CALCIUM S/P/B 8.1(L) 8.5 - 10.1 MG/DL 12/27/2024 5:04 AM [facility] BILIRUBIN TOTAL S/P/B 0.3 0.2 - 1.0 MG/DL 12/27/2024 5:04 AM [facility] ALKALINE PHOSPHATASE S/P/B 187(H) 50 - 130 U/L 12/27/2024 5:04 AM [facility] AST 30 15 - 37 U/L 12/27/2024 5:04 AM [facility] ALT 22 13 - 56 U/L 12/27/2024 5:04 AM [facility] TOTAL PROTEIN S/P/B 6.5 6.4 - 8.2 G/DL 12/27/2024 5:04 AM [facility] ALBUMIN S/P/B 2.9(L) 3.4 - 5.0 G/DL 12/27/2024 5:04 AM [facility] ANION GAP 9.8 2.0 - 10.0 MMOL/L 12/27/2024 5:04 AM [facility] OSMOLALITY (CALC) 304 MOSM/KG 025 5:04 AM [facility] Comment:REFERENCE RANGE NOT ESTABLISHED GFR ESTIMATE 25(L) >90 ML/MIN/1. 73 M2 12/27/2024 5:04 AM [facility] GFR NOTES GFR REFERENCE S: 12/27/2024 5:04 AM [facility] Comment: THE ESTIMATED GFR [...] Angel Gonzalez MD LABORATORY Final Resu lt [facility] [address] [place] [address], [id number] * MAMMOGRAM GENERIC (11/30/2016 4:32 PM CDT) Anatomical Region Laterality Modality Other 11/30/2016 4:32 PM CDT 11/30/2016 4:32 PM CDT Narrative 11/30/2016 4:41 PM CDT [facility] ADMIT/SERVICE DATE: 11/18/16 ACCT: [id number] DISCHARGE DATE: : 1960 SEX: F ORD SITE: [facility] PT TYPE: REG CLI ORDERING MD: SHAN DUNBAR MD STUDY DATE REPORT # ORDER # EXT ORDER ID [id number]; [id number]; [id number]; [id number]; [id number] PROC CODE: AXILNVRT PROCEDURE DESCRIPTION: US AXILLA [...] IF CLINICALLY INDICATED. EXAMINATION: BILATERAL SCREENING MAMMOGRAM [id number], [id number] COMPARISON: OUTSIDE STUDY 07/29/2011. TISSUE DENSITY: THE [...] EXAMINATION: BILATERAL DIAGNOSTIC MAMMOGRAM WITH BILATERAL ULTRASOUND. [id number], [id number] CLINICAL HISTORY: BILATERAL AXILLARY PAIN COMPARISON: NONE [...] - 01/11/2018 [facility] TAYLOR ADMIT/SERVICE DATE:11/18/16 ACCT: [id number] DISCHARGE DATE: : 1960 SEX: F ORD SITE: [facility] PT TYPE: REG CLI ORDERING MD:SHAN DUNBAR MD STUDY DATE REPORT # ORDER # EXT ORDER ID 11/18/16 [id number]; [id number]; [id number]; [id number]; [id number] PROC CODE: AXILNVRT PROCEDURE DESCRIPTION: US AXILLA [...] IF CLINICALLY INDICATED. EXAMINATION: BILATERAL SCREENING MAMMOGRAM [id number], [id number] COMPARISON: OUTSIDE STUDY 07/29/2011. TISSUE DENSITY: THE [...] EXAMINATION: BILATERAL DIAGNOSTIC MAMMOGRAM WITH BILATERAL ULTRASOUND. 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 Documented hx of procedure Procedure Note Jaime Echevarria MD - 01/21/2018 Documented hx of procedure us Generic Conversion Md ECHEVARRIA GI PROCEDURE ORDERABLES Final Result [facility] TO EPIC CONVERSION from Last 3 Months or Most Recently Relevant to Health Maintenance Insurance [facility] Advance Directives * Full Code (Latest Code Status on File) Date Activated Date Inactivated Comments 12/27/2024 6:46 AM 01/05/2025 5:52 PM * Full Code Date Activated Date Inactivated Comments 12/27/2024 3:44 AM 12/27/2024 6:45 AM Care Teams Director Of Emergency Nursing Relationship Specialty Start Date End Date Sumit Caballero MD [address] [place] [address] PCP - General INTERNAL MEDICINE 11/30/18
--- OUTSIDE RECORDS SUMMARY | 2025-01-07 23:03 | XMS_ITS | Clinical Summary ---
Author Organization [facility] Address [address] [place] [address] Care Team Providers Care Echo Vascular Tech Name Role Phone Tommie Archuleta MD Primary Care Provider [phone] [facility] [employer],non-owned Affiliates and Associated Physician Practices is amultiple site organization consisting of ambulatory clinics and hospital sitesin [place], [place], [place] and [place]. This disclosure is being madepursuant to the Care Everywhere program and may not contain all information available regarding this patient. Last updated 17.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
--- OUTSIDE RECORDS SUMMARY | 2025-01-07 23:03 | XMS_ITS | Clinical Summary ---
Author Organization [facility] Address [address] [place] [address] Care Team Providers Care Policy Writer Sales Name Role Phone No, Physician Primary Care Provider [phone] Saroj Solano MD Unavailable [phone] Allergies Active Allergy Reactions Criticality Noted Date [...] Other Medical Brain surg. 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
[2025-01-07 23:17] LABS: Hematocrit 34.1 % (35.0-42.0); Hemoglobin 9.5 g/dL (11.7-13.8); Immature Granulocyte Percent A 0.7 % (0.0-0.0); Immature Platelet Fraction Pct 0.8 % (1.0-7.0); Lymphocytes Absolute Auto 1.80 K/mm3 (1.10-4.50); Mean Corpuscular HGB Conc 27.9 g/dL (32-36); Mean Corpuscular Hemoglobin 20.7 pg (27.0-31.0); Mean Corpuscular Volume 74.1 fL (78.0-102.0); Nucleated Red Blood Cells Absolute Auto 0.00 K/mm3 (0.00-0.00); Nucleated Red Blood Cells Perc 0.0 % (0-0.0); Platelet Count Result 818 K/mm3 (150-420); Red Blood Count 4.60 M/mm3 (4.20-5.40); White Blood Count 13.1 K/mm3 (4.8-10.8)
[2025-01-07 23:32] LABS: Alanine Aminotransferase 25 U/L (6-35); Albumin Level 3.6 g/dL (3.5-5.1); Alkaline Phosphatase 235 U/L (38-126); Anion Gap 7 mmol/L (4-12); Aspartate Amino Transferase 40 U/L (14-36); Bilirubin,Total 0.4 mg/dL (0.2-1.3); Blood Urea Nitrogen 21 mg/dL (7-17); Calcium 8.5 mg/dL (8.4-10.2); Carbon Dioxide 29 mmol/L (22-30); Chloride 101 mmol/L (98-107); Estimated CRCL calculation 57 ml/min; Estimated Glomerular Filt Rate > 60; Glucose 136 mg/dL (65-110); INR 1.0; Lipase 129 U/L (23-300); Osmolality Calculated 289 mOsm/kg (285-295); Partial Thromboplastin Time 26.2 Sec (23.9-30.70); Potassium 4.0 mmol/L (3.4-5.0); Prothrombin Time 10.7 Seconds (9.50-12.1); Sodium 137 mmol/L (137-145); Total Protein 7.4 g/dL (6.3-8.2)
[2025-01-07] MEDS: MORPHINE SULFATE (*CRX) 4 MG/ML INJ 6 MG IV PUSH (23:34)
[2025-01-08 00:42] LABS: Add Urine Microscopic? NO; Appearance Urine Clear (Clear); Glucose Urine UA Negative (Negative); Leukocyte Esterase Ur Negative LEU/UL (Negative); Nitrate Urine Negative (Negative); Specific Grav Ur <= 1.005 (1.010-1.020)
[2025-01-08 01:17] VITALS: BP 125/57; PULSE 97; RESP 15; TEMP 36.6; O2SAT 96
[2025-01-08] MEDS: HYDROmorphone HCL INJ (*CRX) 2 MG/ML VIAL 1 MG IV PUSH (01:20)
--- NOTE | 2025-01-08 01:39 | ECG_ITS ---
Test Date: 2025-01-08 01:47:05 Measurements Intervals [place] Rate: 79 P: 55 CO: 159 QRS: -7 QRSD: 90 T: 52 QT: 365 QTc: 419 Interpretive Statements SINUS RHYTHM INCOMPLETE RIGHT BUNDLE BRANCH BLOCK LEFT VENTRICULAR HYPERTROPHY AND ST-T CHANGE MINIMAL Q WAVES- HIGH LATERAL LEADS BORDERLINE ST ABNORMALITY- ANT/INF LEADS BORDERLINE ECG Compared to ECG 12/26/2024 20:33:10 NO SIGNIFICANT CHANGE Electronically Signed On 01-08-2025 06:20:06 CDT by Og Tavarez D.O.
[2025-01-08 01:57] VITALS: BP 125/61; PULSE 97; RESP 20; O2SAT 98
--- NOTE | 2025-01-08 02:00 | PC.NURSE ---
ERP and this RN at bedside updating patient and family. Patient requesting to leave AMA at this time. States that she needs to update her family and talk to her daughters on the phone about what is going on with her. at bedside, daughter (Yael) on the phone telling patient that she needs to go to [facility] for further evaluation. Patient adamant on leaving at this time. Patient refusing medications and requesting that her IV be taken out. Patient stated that she would be back later to deal with this issue. Patient educated on transfer process and risk and consequences of leaving AMA. ERP and this RN extensively educated patient on risks of aortic dissection. and daughter asking patient to stay, patient still adamant on leaving. Patient is A/O x 4, is of sound mind, ambulatory with steady gait with at her side. PIV taken out upon request from patient, tip intact upon removal. Patient VSS at this time.
[2025-01-08 02:07] VITALS: TEMP 36.8
[2025-01-08 02:28] LABS: Troponin I 0.013 ng/mL (0.000-0.034)
--- NOTE | 2025-01-11 12:31 | PC.NURSE ---
PRELIMINARY BLOOD CULTURE REPORT; NO GROWTH IN 24 HOURS.
--- NOTE | 2025-01-15 12:46 | PC.NURSE ---
final blood culture results x2: no aerobic or anaerobic growth in 5 days
== END 2025-01-08 02:07 | disposition left against medical advice (07) ==
PROVIDERS: Emergency Provider Emergency Medicine; PCP Nurse Practitioner Family
DX: I71.02 Dissection of abdominal aorta (principal); K52.9 Noninfective gastroenteritis and colitis, unspecified; E78.5 Hyperlipidemia, unspecified; I10 Essential (primary) hypertension; J43.9 Emphysema, unspecified; F17.200 Nicotine dependence, unspecified, uncomplicated; Z98.890 Other specified postprocedural states
CPT/HCPCS: 36415; 74177; 80053; 81003; 83605; 83690; 84484; 85025; 85055; 85610; 85730; 93005; 96374; 99284; J1171; J2270; Q9967

== ENCOUNTER 2025-01-08 02:44 | Emergency (ER) | payer OTHER, SELFPAY ==
--- OUTSIDE RECORDS SUMMARY | 2014-07-04 03:28 | XMS_ITS | Continuity of Care Document ---
Author Organization [facility] Address [address] [facility] [address] [place] [address] Phone Care Team Providers Care Electrical Tests Supervisor Name Role Phone Roni Courtney MD Unavailable [...] Diagnoses Date Provider Providers Copied on Encounter [facility], [address], [facility], tel:[phone] [facility] No Information 5 Roz Tamayo. 1 [place], [place], [address]. tel:[phone] OFFICE/OUTPAT IENT VISIT EST [facility], [address], [address], tel:[phone] [facility] f/u mri (chief complaint) Disorder of bursae and tendons in shoulder regionOther affections of shoulder region, not elsewhere classified 5 Roz Tamayo. 621 [place], [place], [address]. tel:[phone] OFFICE/OUTPAT IENT VISIT [facility], [address] [facility], [place], [address], [place] tel:[phone] [facility] Disorder of bursae and tendons in shoulder region Teresa. [address] [facility] [address], [place], [place], [address]. tel:[phone] Family History Family Member Type Diagnosis Age At Onset No Information Payers Payer name Insurance type Covered republican ID Authoriza tion(s) No Information Social History [...]
--- OUTSIDE RECORDS SUMMARY | 2014-07-04 03:28 | XMS_ITS | Continuity of Care Document ---
Author Organization [facility] Address [address] [place] [address] Phone Care Team Providers Care Manager Placement Name Role Phone Roni Courtney MD Unavailable [...] Diagnoses Date Provider Providers Copied on Encounter [facility], [address], [facility], tel:[phone] [facility] No Information 5 Roz Tamayo. [address] [place], [place], [id number]. tel:[phone] OFFICE/OUTPAT IENT VISIT EST [facility], [address], [address], tel:[phone] [facility], [facility] f/u mri (chief complaint) Disorder of bursae and tendons in shoulder regionOther affections of shoulder region, not elsewhere classified 5 Roz Tamayo. [address] [place], [place], [id number]. tel:[phone] OFFICE/OUTPAT IENT VISIT [facility], [address], [place], [address], [place] tel:[phone] [facility] Disorder of bursae and tendons in shoulder region Teresa. [address], [place], [place], [id number]. tel:[phone] Family History Family Member Type Diagnosis Age [...]
--- OUTSIDE RECORDS SUMMARY | 2025-01-07 13:15 | XMS_ITS | Encounter Summary ---
Author Organization [facility] Address [address] [place] [address] Care Team Providers Care Lehr Loader Name Role Phone Sumit Caballero MD Primary Care Provider [phone] Encounter Details Date Type Department Care Team (Late st Contact Info) Description 01/07/2025 1:15 PM CDT Home Care Visit [facility] Home Care [facility] [address] [place] [address] Maribel Sagastume, RN [phone] (Work) SN NON ADMIT SOC Social History Tobacco Use Types Packs/Day Years Used Date Smoking Tobacco: Every Day Cigarettes Smokeless Tobacco: Current [facility] Utilities Answer Date Recorded In the past 12 months has [facility] [employer], gas, oil, or water [employer] threatened to shut off services in your home? No 12/27/2024 Humiliation, Afraid, Rape, and Kick questionnair e Answer Date Recorded Within the last year, have y ou been afraid of your partner or ex-partner? No 12/27/2024 Within the last year, have y ou been humiliated or emotionally abused in other ways by your partner or ex-partner? No Within the last year, have y ou been kicked, hit, slapped, or otherwise physically hurt by your partner or ex-partner? No 12/27/2024 Within the last year, have y ou been raped or forced to have any kind of sexual activity by your partner or ex-partner? No 12/27/2024 Overall Financial Resource Strain (CARDIA) Answe r Date Recorded How hard is it for you to pa y for the very basics like food, housing, medical care, and heating? Not very hard 12/27/2024 Hunger Vital Sign Answer Date Recorded Within the past 12 months, y ou worried that your food would run out before you got the money to buy more. Never true 12/28/19 25 Within the past 12 months, t he food you bought just didn't last and you didn't have money to get more. Never true 12/27/2024 PRAPARE - Transportation Answer Date Re corded In the past 12 months, has l ack of transportation kept you from medical appointments or from getting medications? No 12/18 In the past 12 months, has l ack of transportation kept you from meetings, work, or from getting things needed for daily living? No 12/27/2024 Housing Stability Vital Sign Answer Jeffery e Recorded In the last 12 months, was t here a time when you were not able to pay the mortgage or rent on time? No 12/27/2024 In the past 12 months, how m any times have you moved where you were living? 0 12/27/2024 At any time in the past 12 m [facility], were you homeless or living in a longterm (including now)? No 12/27/2024 Comments No Sex and Gender Information Value Date Recorded Sex Assigned at Female 12/27/2024 3:39 AM CDT Legal Sex Female 1:27 AM CDT Gender Identity Female 12/27/2024 3:39 AM CDT Sexual Orientation Not on file documented as of this encounter Functional Status * Are you deaf or do you have serious difficulty hearing Answer Date of Assessment Author Status Yes 12/27/2024 3:34 AM CDT Jonathan Caballero RN Active * Are you blind or do you have serious difficulty seeing, even when wearing glasses? Answer Date of Assessment Author Status No 12/27/2024 3:34 AM CDT Jonathan Caballero RN Active * Do you have serious difficulty walking or climbing stairs? Answer Date of Assessment Author Status Yes 12/27/2024 3:34 AM CDT Monney, Jonathan D, RN Active * Do you have difficulty dressing or bathing? Answer Date of Assessment Author Status No 12/27/2024 3:34 AM CDT Jonathan Caballero RN Active * Because of a physical, mental, or emotional condition, do you have difficulty doing errands alone such as visiting a doctor's office or shopping? Answer Date of Assessment Author Status No 12/27/2024 3:34 AM CDT Jonathan Caballero RN Active documented as of this encounter Mental Status * Because of a physical, mental, or emotional condition, do you have serious difficulty concentrating, remembering, or making decisions? Answer Entry Date Author Status No 12/27/2024 3:34 AM CDT Jonathan Caballero RN Active documented in this encounter Plan of Treatment Upcoming Encounters Date Type Department Care Team (Late st Contact Info) Description 01/08/2025 8:45 AM CDT Appointment [facility] Home Care [facility] [address] [place] [address] Artie Moulton RN documented as of this encounter Visit Diagnoses Not on filedocumented in this encounter Care Teams Lehr Loader Relationship Specialty Start Date End Date Sumit Caballero MD [address] [place] [address] PCP - General INTERNAL MEDICINE 11/30/18 documented as of this encounter
[2025-01-08 02:44] VITALS: BP 102/44; PULSE 93; RESP 16; TEMP 36.8; O2SAT 93
--- OUTSIDE RECORDS SUMMARY | 2025-01-08 02:48 | XMS_ITS | Clinical Summary ---
Author Organization [facility] Address [address] [place] [address] Care Team Providers Care Director Online Marketing Name Role Phone Sumit Caballero MD Primary Care Provider [phone] Allergies Active Allergy Reactions Criticality Noted Date [...] 01/07/2025 1:15 PM CDT Home [facility] [address] [place] [address] Maribel Sagastume RN SN NON ADMIT SOC 12/28/2024 12:34 PM CDT Anesthesia [facility] [address] [place] [address] Kaushik Burleson MD 12/28/2024 11:25 AM CDT - 12/28/2024 3:16 PM CDT Surgery [facility] [address] [place] [address] Niru Diaz, DO RE-LOOK LAPAROTOMY with creation of end colostomy 12/27/2024 6:23 AM CDT Anesthesia [facility] [address] [place] [address] Shan Mittal MD Lajeunesse, Kaylie, CRNA 12/27/2024 5:55 AM CDT - 12/27/2024 7:47 AM CDT Surgery [facility] [address] [place] [address] Niru Diaz, DO LAPAROTOMY EXPLORATORY WITH MOBILIZATION OF SPLENIC FLEXURE AND DESCENDING COLON RESECTION, ABTHERA WOUND VAC PLACEMENT 12/27/2024 2:43 AM CDT - 01/05/2025 3:46 PM CDT Hospital Encounter [facility] [address] [place] [address] Angel Gonzalez MD Imam, Syed M, DO Zhen, Daniel P, MD Gowda, Chetan N, MD Discharge Disposition: Home or Self Care (Routine Discharge) 12/27/2024 Travel from Last 3 Months Social History Tobacco Use Types Packs/Day Years Used Date Smoking Tobacco: Every Day Cigarettes Smokeless Tobacco: Current Tobacco Cessation:Ready to Q uit: Not Asked; Counseling Given: Not Answered [facility] Answer Date Recorded In the past 12 [...] time in the past 12 m [facility], were you homeless or living in a snf (including now)? 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 SODIUM S/P/B 138 136 - 145 MMOL/L 01/04/2025 5:55 AM CDT [facility] POTASSIUM S/P/B 4.4 3.5 - 5.1 MMOL/L 01/04/2025 5:55 AM CDT [facility] Comment:MILD HEMOLYSIS, RESU LT MAY BE AFFECTED. CHLORIDE S/P/B 103 97 - 115 MMOL/L 01/04/2025 5:55 AM CDT [facility] CO2 30.9 21.0 - 32.0 MMOL/L 01/04/2025 5:55 AM CDT [facility] GLUCOSE 122(H) 74 - 106 MG/DL 01/04/2025 5:55 AM CDT [facility] BUN 11 7 - 18 MG/DL 01/04/2025 5:55 AM CDT [facility] CREATININE S/P/B 0.52(L) 0.55 - 1.02 MG/DL 01/04/2025 5:55 AM CDT [facility] CALCIUM S/P/B 8.5 8.5 - 10.1 MG/DL 01/04/2025 5:55 AM CDT [facility] ANION GAP 4.1 2.0 - 10.0 MMOL/L 01/04/2025 5:55 AM CDT [facility] OSMOLALITY (CALC) 287 MOSM/KG 025 5:55 AM CDT [facility] Comment:REFERENCE RANGE NOT ESTABLISHED GFR ESTIMATE >90 >90 ML/MIN/1. 73 M2 01/04/2025 5:55 AM CDT [facility] GFR NOTES GFR REFERENCE S: 01/04/2025 5:55 AM CDT [facility] Comment: THE ESTIMATED GFR IS CALCULATED [...] us Montez Molina MD LABORATORY Final Result [facility] [address] [place] [address], [phone] * (ABNORMAL) CBC W/DIFF AUTOMATED (01/04/2025 4:40 AM CDT) Only the most recent of9 resultswithin the time period is included. WBC 10.58 4.00 - 10.80 x10'3/uL 01/04/2025 5:06 AM CDT [facility] RBC 4.43 4.10 - 5.40 x10'6/uL 01/04/2025 5:06 AM CDT [facility] HGB 8.8(L) 12.0 - 16.0 G/DL 01/04/2025 5:06 AM CDT [facility] HCT 32.4(L) 36.0 - 47.0 % 01/04/2025 5:06 AM CDT [facility] MCV 73.1(L) 78.0 - 100.0 FL 01/04/2025 5:06 AM CDT [facility] MCH 19.9(L) 27.0 - 31.0 PG 01/04/2025 5:06 AM CDT [facility] MCHC 27.2(L) 33.0 - 36.0 G/DL 01/04/2025 5:06 AM CDT [facility] RDW 29.3(H) 11.5 - 14.5 % 01/04/2025 5:06 AM CDT [facility] PLT 544(H) 150 - 350 x10'3/uL 01/04/2025 5:06 AM CDT [facility] MPV 9.5 7.4 - 10.4 FL 01/04/2025 5:06 AM CDT [facility] DIFFERENTIAL TYPE AUTOMATED DIFFERENTIAL 01/04/2025 6:09 AM CDT [facility] SEG NEUTROPHILS 67.8 % 6:09 AM CDT [facility] LYMPHOCYTES 13.9 % 01/04/2025 6:09 AM CDT [facility] MONOCYTES 8.5 % 01/04/2025 6:09 AM CDT [facility] EOSINOPHILS 7.1 % 01/04/2025 6:09 AM CDT [facility] BASOPHILS 0.8 % 01/04/2025 6:09 AM CDT [facility] IMMATURE GRANS % 1.7 % 01/05/20 6:09 AM CDT [facility] ABS. NEUTROPHILS 7.20 1.60 - 8.30 x10'3/uL 01/04/2025 6:09 AM CDT [facility] ABS. LYMPHOCYTES 1.47 0.80 - 4.70 x10'3/uL 01/04/2025 6:09 AM CDT [facility] ABS. MONOCYTES 0.90 0.00 - 1.50 x10'3/uL 01/04/2025 6:09 AM CDT [facility] ABS. EOSINOPHILS 0.75(H) 0.00 - 0.40 x10'3/uL 01/04/2025 6:09 AM CDT [facility] ABS. BASOPHILS 0.08 0.00 - 0.20 x10'3/uL 01/04/2025 6:09 AM CDT [facility] ABS. IMMATURE GRANULOCYTES 0.18(H) 0.00 - 0.03 x10'3/uL 01/04/2025 6:09 AM CDT [facility] ABS. NUCLEATED RBC'S 0.02(H) 0.00 - 0.01 x10'3/uL 01/04/2025 6:09 AM CDT [facility] NRBC % 0.2 % 01/04/2025 6:09 AM CDT [facility] RBC MORPHOLOGY SLIDE REVIEWED 2024 6:09 AM CDT [facility] ANISO MARKED 01/04/2025 6:09 AM CDT [facility] POIKLO MODERATE 01/04/2025 6:09 AM CDT [facility] HYPOCHROMASIA MODERATE 01/04/2025 6:09 AM CDT [facility] MICRO MODERATE 01/04/2025 6:09 AM CDT [facility] POLY SLIGHT 01/04/2025 6:09 AM CDT [facility] OVALOCYTES PRESENT 01/04/2025 6:09 AM CDT [facility] TARGET CELLS PRESENT 01/04/2025 6:09 AM CDT [facility] ACANTHOCYTES PRESENT 01/04/2025 6:09 AM CDT [facility] STOMATOCYTE PRESENT 01/04/2025 6:09 AM CDT [facility] PLT EST. INCREASED 01/04/2025 6:09 AM CDT [facility] 01/04/2025 4:40 AM CDT us Montez Molina MD LABORATORY Final Result [facility] [address] [place] [address], [id number] * PHOSPHORUS, INORGANIC PHOSPHATE (01/04/2025 4:40 AM CDT) Only the most recent of8 resultswithin the time period is included. PHOSPHORUS 4.3 2.5 - 4.9 MG/DL 01/04/2025 5:55 AM CDT [facility] 01/04/2025 4:40 AM CDT us Montez Molina MD LABORATORY Final Result Performing Organization Address [facility] de Phone Number [facility] [address] [place] [address], [place] [phone] * MAGNESIUM (01/04/2025 4:40 AM CDT) Only the most recent of8 resultswithin the time period is included. MAGNESIUM 1.9 1.6 - 2.6 MG/DL 01/04/2025 5:55 AM CDT [facility] Comment:RESULT QUESTIONABLE DUE TO HEMOLYSIS, RECOMMEND RECOLLECTION. 01/04/2025 4:40 AM CDT us Montez Molina MD LABORATORY Final Result Performing Organization Address [facility] de Phone Number [facility] [address] [place] [address], [place] [phone] * (ABNORMAL) POCT glucose (01/03/2025 11:22 AM CDT) Only the most recent of26 resultswithin the time period is included. GLUCOSE POC 194(H) 70 - 109 01/03/2025 11:32 AM CDT [facility] 01/03/2025 11:2 2 AM CDT us Montez Molina MD POCT ORDERABLES - DEVICE Final Result Performing Organization Address [facility] de Phone Number [facility] [address] [place] [address], [phone] * ECG 12 lead (01/02/2025 10:50 PM CDT) Only the most recent of4 resultswithin the time period is included. 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1960 Requested By: SAIMA HAGER Order Number: [id number] Reading MAXIMINO Pham Measurements Intervals [place] Rate: 72 P: 63 UT: 165 QRS: 24 QRSD: 95 T: 5 QT: 392 QTc: 432 Interpretive Statements SINUS RHYTHM POSSIBLE RIGHT VENTRICULAR CONDUCTION DELAY NONSPECIFIC ST & T-WAVE ABNORMALITY Procedure Note Camila Pham MD - 01/03/2025 [place] [address] Test Date: 2025-01-02 Pat Name: MAMI TAYLOR Department: 1 Room: [facility] 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1960 Requested By: SAIMA HAGER Order Number: [id number] Reading MAXIMINO Pham Measurements Intervals [place] Rate: 72 P: 63 UT: 165 QRS: 24 QRSD: 95 T: 5 QT: 392 QTc: 432 Interpretive Statements SINUS RHYTHM POSSIBLE RIGHT VENTRICULAR CONDUCTION DELAY NONSPECIFIC ST & T-WAVE ABNORMALITY us Saima Hager MD ECG ORDERABLES Final Result [facility] * CT ABD+PEL W CON (01/02/2025 [...] 1:36 PM Narrative 01/02/2025 1:56 PM CDT [facility] [address] [place], [place] [address] EXAMINATION: CT ABD+PEL W CON EXAM DATE: [...] Note Francis Jim Linares DO - 01/02/[address] [address] EXAMINATION: CT ABD+PEL W CON EXAM DATE: [...] the time period is included. Pathologist [facility] TROPONIN I HIGH SENSITIVITY 21 0 - 53 ng/L 01/01/2025 7:17 PM CDT [facility] 01/01/2025 6:40 PM CDT Montez Molina MD LABORATORY Final Result Performing Organization Address [facility] de Phone Number [facility] [address] [place] [address], [place] [phone] * C AURIS,PCR,AXILLA/GROIN,NARES (01/01/2025 12:50 PM CDT) Pathologist [facility] KAMLA AURIS (CLARITA/GROIN) Not Detected Not Detected 01/04/2025 2:12 PM CDT [facility] Comment: A Not Detected result [...] analytical performance characteristics have been determined by [employer] [place], [place]. It has not been cleared or approved by the U.S. Food and Drug Administration. This assay has been validated pursuant to the CLIA regulations and is used for clinical purposes. Test Performed by [employer], [employer] [place], [address] [place], [place] Mike Mitchell M.D., Ph.D., Director of Laboratories , CLIA [id number] 01/01/2025 12:5 0 PM CDT Montez Molina MD LABORATORY Final Result [facility] [address] [place] [address], [place] [phone] * (ABNORMAL) HEMOGLOBIN AND HEMATOCRIT (12/30/2024 1:49 PM CDT) HGB 7.9(L) 12.0 - 16.0 G/DL 12/30/2024 2:03 PM CDT [facility] HCT 28.0(L) 36.0 - 47.0 % 12/30/2024 2:03 PM CDT [facility] 12/30/2024 1:49 PM CDT Montez Molina MD LABORATORY Final Result Performing Organization Address [facility] Co de Phone Number [facility] [address] [place] [address], [place] [phone] * TRANSFUSE RED BLOOD CELLS (12/30/2024 11:22 AM CDT) Only the most recent of3 resultswithin the time period is included. Niru Diaz DO NURSING TREATMENT ORDERABLE S - BLOOD ADMIN Final Result * (ABNORMAL) PRO-BRAIN NATRIURETIC PEPTIDE (12/30/2024 2:31 AM CDT) PRO-B TYPE NATRIURETIC PEPTIDE 3,721(H) <125 PG/ML 12/30/2024 5:01 AM CDT [facility] Comment: AGE INDEPENDENT: <300 PG/ML HAS [...] us Saima Hager MD LABORATORY Final Result [facility] [address] [place] [address], [phone] * USE [place] (12/29/2024 12:25 PM CDT) Anatomical Region Laterality Modality Cardiac Echocardiogram 12/29/2024 9:54 AM CDT Narrative 12/29/2024 5:31 PM CDT Echocardiography Report Pat.Name: MAMI TAYLOR Pat.ID: [id number] St.Date: 12/29/2024 Refer.MD: SAIMA HAGER Exam Time: 9:54:00 AM Study Type:ECHO WITH DOPPLER LIMITED Height: 67 in Weight: 170 lb BSA: 1.89 m2 Age: 11 1960,64Y Sex: F BP: 143/66 HR: 83 bpm Sonogrphr: Alicia Norwood [facility] Pat. Stat.:Inpatient Room: [facility] CPT - 4: 12960 [id number] Reason for Study:assess intracavitary gradient (LVOT), bubble [...] - 12/29/2024 Echocardiography Report Pat.Name: MAMI TAYLOR.ID: [id number] .Date: 12/29/2024 Refer.MD: SAIMA HAGER Exam Time: 9:54:00 AM Study Type:ECHO WITH DOPPLER LIMITED Height: 67 in Weight: 170 lb BSA: 1.89 m2 Age: 11 1960,64Y Sex: F BP: 143/66 HR: 83 bpm Sonogrphr: Alicia Norwood [facility] Pat. Stat.:Inpatient Room: [facility] CPT - 4: 65976 [id number] Reason for Study:assess intracavitary gradient (LVOT), bubble [...] resultswithin the time period is included. PATHOLOGY [facility] Department of Laboratory Medicine [address] [place] [address] , extension [phone] Pathology Report Surgical Pathology Report Name: MAMI TAYLOR Specimen #: [id number] Age: 11 1960 (Age: 64) Location: [facility] Sex: F Procedure Date: 12/28/2024 Hospital #: [id number] Date Received: 12/30/2024 Date Reported: 12/31/2024 Provider: [...] Gross examination (when applicable) was performed at [facility], [address] [place] [address]. This case was interpreted and signed out at [facility], [address] [place] [address]. Electronically Signed Out GARCÍA GROVES MD [facility] TISSUE (OTHER (type in comments)) 12/28/2024 1:30 PM CDT us Niru Diaz DO PATHOLOGY/CYTOLOGY ORDERABL ES Final Result [facility] [address] [place] [address], [phone] * USE ECHOCARDIOGRAM W CON (12/27/2024 2:05 PM CDT) Anatomical Region Laterality Modality NA Echocardiogram 12/27/2024 1:35 PM CDT Narrative 12/27/2024 2:54 PM CDT Echocardiography Report Pat.Name: MAMI TAYLOR.ID: [id number] .Date: 12/27/2024 Refer: [id number] NONE PROVIDER EWDPROV EWDPROV Exam Time: 1:35:00 PM Study Type:ECHO WITH CARDIAC DOPPLER COMP Height: 67 in Weight: 170 lb BSA: 1.89 m2 Age: 11 1960,64Y Sex: F BP: 118/53 HR: 81 bpm Sonogrphr: HAKEEM Briggs. Stat.:Inpatient Room: [facility] CPT - 4: 80492 Reason for Study:Evaluate for thrombus/vegetations Procedures: 2D, [...] Mass 2D Value 159 g LV Mass [id number] Value 84.1 g/m2 Med MA LV Peak [...] 2.8 cm Right Ventricle 2.3 cm Major [place] 8.3 cm MMODE TA Tricuspid Annul 2.09 cm <Electronic Signature> 12/27/2024 02:54 PM Gerri Mcneal M.D. Procedure Note Gerri Mcneal, - 12/27/2024 Echocardiography Report Pat.Name: MAMI TAYLOR Rhea.ID: [id number] .Date: 12/27/2024 Refer.: [id number] NONE PROVIDER EWDPROV EWDPROV Exam Time: 1:35:00 PM Study Type:ECHO WITH CARDIAC DOPPLER COMP Height: 67 in Weight: 170 lb BSA: 1.89 m2 Age: 11 1960,64Y Sex: F BP: 118/53 HR: 81 bpm Sonogrphr: HAKEEM Briggs Pat. Stat.:Inpatient Room: [facility] CPT - 4: 13610 Reason for Study:Evaluate for thrombus/vegetations Procedures: 2D, [...] Mass 2D Value 159 g LV Mass [id number] Value 84.1 g/m2 Med MA LV Peak [...] 2.8 cm Right Ventricle 2.3 cm Major [place] 8.3 cm MMODE TA Tricuspid Annul 2.09 cm <Electronic Signature> 12/27/2024 02:54 PM Gerri Mcneal M.D. Niru J Diaz DO ECHO Final Resul t * (ABNORMAL) POCT ACUTE ARTERIAL PANEL (12/27/2024 10:45 AM CDT) Only the most recent of2 resultswithin the time period is included. SODIUM WHOLE BLOOD 139 138 - 146 mmol/L 12/27/2024 10:51 AM CDT [facility] POTASSIUM WHOLE BLOOD 4.7 3.5 - 4.9 mmol/L 12/27/2024 10:51 AM CDT [facility] CA IONIZED WH BLOOD 1.12 1.12 - 1.32 mmol/L 12/27/2024 10:51 AM CDT [facility] POC PH ARTERIAL 7.285(L) 7.35 - 7.45 12/27/2024 10:51 AM CDT [facility] POC PCO2 ARTERIAL 39.8 35.0 - 45.0 MMHG 12/27/2024 10:51 AM CDT [facility] POC PO2 ARTERIAL 115(H) 80 - 105 MMHG 12/27/2024 10:51 AM CDT [facility] POC HCO3 ARTERIAL 18.9(L) 22 - 26 MMOL/L 12/27/2024 10:51 AM CDT [facility] POC TCO2 ARTERIAL 20(L) 23 - 27 MMOL/L 12/27/2024 10:51 AM CDT [facility] POC BASE DEFICIT ARTERIAL 8(H) 0 - 2 MMOL/L 12/27/2024 10:51 AM CDT [facility] POC HEMATOCRIT 29(L) 38 - 51 % 12/27/2024 10:51 AM CDT [facility] TIME TEST WAS PERFORMED: 1045 12/27/2024 10:51 AM CDT [facility] 12/27/2024 10:4 5 AM CDT us Chidi Gallagher MD POCT ORDERABLES - DEVICE Final Result [id number] [address], [id number] * XR CHEST PORTABLE (12/27/2024 10:36 AM CDT) Anatomical Region Laterality Modality Chest Radiographic Mary ging 12/27/2024 1:44 PM CDT Impressions 12/27/2024 1:46 PM CDT IMPRESSION: The gastric tube is in the stomach. Referred By: PROVIDER NONE Interpreted By: Ayush Real MD, 12/27/2024 1:44 PM Narrative 12/27/2024 1:46 PM [address]T [address] [address] EXAM: XR CHEST PORTABLE DATE: 12/27/2024 1033 hours No comparison INDICATION: Gastric tube placement. TECHNIQUE: One view FINDINGS: Endotracheal tube is about 6 cm above the eunice. Gastric tube is in the stomach. Enlarged heart and central pulmonary vessels. Mild ill-defined lung densities. Procedure Note Ayush Real MD - 12/27/[address] [address] EXAM: XR CHEST PORTABLE DATE: 12/27/2024 1033 [...] - 2.0 MMOL/L 12/27/2024 10:52 AM CDT [facility] 12/27/2024 10:0 8 AM CDT us Chidi Gallagher MD LABORATORY Final Result Performing Organization Address [facility] Co de Phone Number [facility] [address] [place] [address], [place] [phone] * Art Line (12/27/2024 6:56 AM CDT) [...] (comment) (CHG imbedding tegaderm) Nathan Chicas MD [place] ANESTHESIA Final Result * (ABNORMAL) LACTIC ACID W REFLEX (SEPSIS) (12/27/2024 5:54 AM CDT) Only the most recent of2 resultswithin the time period is included. LACTIC ACID VENOUS 3.1(H) 0.4 - 2.0 MMOL/L 12/27/2024 6:46 AM CDT [facility] 12/27/2024 5:54 AM CDT Angel Gonzalez MD LABORATORY Final Resu lt Performing Organization Address [facility]/ZIP Co de Phone Number [facility] [address] [place] [address], [place] [phone] * TYPE & SCREEN (12/27/2024 5:54 AM CDT) UNITS ORDERED 4 12/30/2024 6:44 AM CDT [facility] ABO/RH O POSITIVE 12/27/2024 6:35 AM CDT [facility] ANTIBODY SCREEN NEGATIVE 6:35 AM CDT [facility] SAMPLE EXPIRATION 12/30/2024,2359 12/27/2024 5:58 AM CDT [facility] BLOOD UNIT NUMBER [id number] 12/27/2024 7:10 AM CDT [facility] PRODUCT: PC LEUKOPOOR 12/27/2024 7:10 AM CDT [facility] UNIT DIVISION 00 12/27/2024 7:10 AM CDT [facility] BLOOD UNIT STATUS TRANSFUSED,FINAL 12/28/2024 1:49 AM CDT [facility] ISSUE DATE/TIME [id number] 025 1:49 AM CDT [facility] PRODUCT CODE [id number] 12/28/2024 1:49 AM CDT [facility] ABO/RH Unit O POS 12/28/2024 1:49 AM CDT [facility] ABO/RH UNIT ISBT CODE 5100 12/28/2024 1:49 AM CDT [facility] BLOOD UNIT EXPIRATION DATE [id number] 12/28/2024 1:49 AM CDT [facility] TRANSFUSION STATUS OK TO TRANSFUSE 12/27/2024 7:10 AM CDT [facility] CROSSMATCH COMPATIBLE-EXM 12/27/2024 7:10 AM CDT [facility] BLOOD UNIT NUMBER [id number] 12/27/2024 7:10 AM CDT [facility] PRODUCT: PC LEUKOPOOR 12/27/2024 7:10 AM CDT [facility] UNIT DIVISION 00 12/27/2024 7:10 AM CDT [facility] BLOOD UNIT STATUS TRANSFUSED,FINAL 12/28/2024 1:49 AM CDT [facility] ISSUE DATE/TIME [id number] 025 1:49 AM CDT [facility] PRODUCT CODE [id number] 12/28/2024 1:49 AM CDT [facility] ABO/RH Unit O POS 12/28/2024 1:49 AM CDT [facility] ABO/RH UNIT ISBT CODE 5100 12/28/2024 1:49 AM CDT [facility] BLOOD UNIT EXPIRATION DATE [id number] 12/28/2024 1:49 AM CDT [facility] TRANSFUSION STATUS OK TO TRANSFUSE 12/27/2024 7:10 AM CDT [facility] CROSSMATCH COMPATIBLE-EXM 12/27/2024 7:10 AM CDT [facility] BLOOD UNIT NUMBER [id number] 12/30/2024 8:35 AM CDT [facility] PRODUCT: PC LEUKOPOOR 12/30/2024 8:35 AM CDT [facility] UNIT DIVISION 00 12/30/2024 8:35 AM CDT [facility] BLOOD UNIT STATUS TRANSFUSED,FINAL 12/31/2024 1:09 AM CDT [facility] ISSUE DATE/TIME [id number] 025 1:09 AM CDT [facility] PRODUCT CODE [id number] 12/31/2024 1:09 AM CDT [facility] ABO/RH Unit O POS 12/31/2024 1:09 AM CDT [facility] ABO/RH UNIT ISBT CODE 5100 12/31/2024 1:09 AM CDT [facility] BLOOD UNIT EXPIRATION DATE [id number] 12/31/2024 1:09 AM CDT [facility] TRANSFUSION STATUS OK TO TRANSFUSE 12/30/2024 8:35 AM CDT [facility] CROSSMATCH COMPATIBLE-EXM 12/30/2024 8:35 AM CDT [facility] 12/27/2024 5:5 4 AM CDT Angel Gonzalez MD BLOOD BANK TEST ORDERABLES Final Result Performing Organization Address [facility] Co de Phone Number [facility] [address] [id number], [id number] * (ABNORMAL) PROTIME/INR, VENOUS (PROTHROMBIN TIME) (12/27/2024 5:54 AM CDT) PROTIME 15.0(H) 9.4 - 12.5 SEC 12/27/2024 6:37 AM CDT [facility] INR 1.3(H) 0.8 - 1.1 12/27/2024 6:37 AM CDT [facility] 12/27/2024 5:54 AM CDT Niru Diaz DO LABORATORY Final Resul t Performing Organization Address [facility] de Phone Number [facility] [address] [place] [address], [phone] * CULTURE, BACTERIA BLOOD X2 (12/27/2024 5:53 AM CDT) SPEC DESCRIPTION BLOOD 12/27/2024 5:35 AM CDT [facility] SPECIAL REQUESTS NO SPECIAL REQUEST 12/27/2024 5:35 AM CDT [facility] CULTURE RESULT NO GROWTH 5 DAYS 01/01/2025 6:02 AM CDT [facility] BLOOD SPECIMEN OBTAINED FOR BLOOD CULTURE / Unknown 12/27/2024 5:53 AM CDT 12/27/2024 5:54 AM CDT Niru Diaz DO MICROBIOLOGY - GENERAL ORDEde QUINN Final Result [facility] [address] [place] [address], [phone] * (ABNORMAL) URINE DRUG SCREEN (TOXICOLOGY) (12/27/2024 5:42 AM CDT) PHENCYCLIDINE PCP (U) NEGATIVE NEGATIVE 12/27/2024 7:06 AM CDT [facility] BENZODIAZEPINES SCREEN (U) NEGATIVE NEGATIVE 12/27/2024 7:06 AM CDT [facility] COCAINE METABOLITES (U) NEGATIVE NEGATIVE 12/27/2024 7:06 AM CDT [facility] AMPHETAMINE (U) POSITIVE SCREEN RESULT, IF CONFIRMATION DESIRED PLEASE CONTACT LAB WITHIN ONE WEEK. (A) NEGATIVE 12/27/2024 7:06 AM CDT [facility] CANNABINOIDS SCREEN (U) NEGATIVE NEGATIVE 12/27/2024 7:06 AM CDT [facility] OPIATE SCREEN (U) POSITIVE SCREEN RESULT, IF CONFIRMATION DESIRED PLEASE CONTACT LAB WITHIN ONE WEEK. (A) NEGATIVE 12/27/2024 7:06 AM CDT [facility] BARBITURATES SCREEN (U) NEGATIVE NEGATIVE 12/27/2024 7:06 AM CDT [facility] URINE TOX COMMENT Unconfirmed screening results are to be used only for medical purposes. 12/27/2024 5:54 AM CDT [facility] CUTOFF CONCENTRATION (U) Cut-off Concentration for a positive result 12/27/2024 5:54 AM CDT [facility] Comment: Phencyclidine 25 ng/mL Benzodiazepines 200 ng/mL Cocaine 300 ng/mL Amphetamine 1000 ng/mL Cannabinoids 50 ng/mL Opiates 300 ng/mL Barbiturates 200 ng/mL URINE SPECIMEN / Unknown 12/27/2024 5:42 AM CDT Niru Diaz DO URINE ORDERABLES Final Resu lt [facility] [address] [place] [address], [id number] * (ABNORMAL) URINALYSIS (12/27/2024 5:42 AM CDT) COLOR (U) YELLOW 12/27/2024 7:01 AM CDT [facility] TRANSPARENCY CLEAR 12/27/2024 7:01 AM CDT [facility] SPECIFIC GRAVITY (U) 1.020 1.002 - 1.035 12/27/2024 7:01 AM CDT [facility] U PH 5.0 5 - 8 12/27/2024 7:01 AM CDT [facility] PROTEIN RANDOM (U) 20(A) NEGATIVE 12/27/2024 7:01 AM CDT [facility] GLUCOSE (U) NEGATIVE NEGATIVE MG/DL 12/27/2024 7:01 AM CDT [facility] KETONES MG/DL (U) NEGATIVE NEGATIVE 12/27/2024 7:01 AM CDT [facility] BILIRUBIN (U) NEGATIVE NEGATIVE 12/27/2024 7:01 AM CDT [facility] BLOOD (U) NEGATIVE NEGATIVE 12/27/2024 7:01 AM CDT [facility] NITRITES NEGATIVE NEGATIVE 12/27/2024 7:01 AM CDT [facility] UROBILINOGEN NORMAL 0 - 1 EU/DL 12/27/2024 7:01 AM CDT [facility] LEUKOCYTES (U) NEGATIVE NEGATIVE 12/27/2024 7:01 AM CDT [facility] RBC/HPF <1 0 - 3 /HPF 12/27/2024 7:01 AM CDT [facility] WBC/HPF 2 0 - 6 /HPF 12/27/2024 7:01 AM CDT [facility] BACTERIA (U) PRESENT /HPF 12/27/2024 7:01 AM CDT [facility] SQUAMOUS EPITHELIALS 2 12/27/2024 7:01 AM CDT [facility] AMORPHOUS SEDIMENT PRESENT 12/27/2024 7:01 AM CDT [facility] URINE SPECIMEN OBTAINED BY CLEAN CATCH PROCEDURE / Unknown 12/27/2024 5:42 AM CDT us Angel Gonzalez MD URINE ORDERABLES Final Res ult [facility] [address] [place] [address], [id number] * (ABNORMAL) COMPREHENSIVE METABOLIC PANEL (12/27/2024 4:10 AM CDT) SODIUM S/P/B 138 136 - 145 MMOL/L 12/27/2024 5:04 AM CDT [facility] POTASSIUM S/P/B 4.6 3.5 - 5.1 MMOL/L 12/27/2024 5:04 AM CDT [facility] CHLORIDE S/P/B 109 97 - 115 MMOL/L 12/27/2024 5:04 AM CDT [facility] CO2 19.2(L) 21.0 - 32.0 MMOL/L 12/27/2024 5:04 AM CDT [facility] GLUCOSE 160(H) 74 - 106 MG/DL 12/27/2024 5:04 AM CDT [facility] BUN 54(H) 7 - 18 MG/DL 12/27/2024 5:04 AM CDT [facility] CREATININE S/P/B 2.16(H) 0.55 - 1.02 MG/DL 12/27/2024 5:04 AM CDT [facility] CALCIUM S/P/B 8.1(L) 8.5 - 10.1 MG/DL 12/27/2024 5:04 AM [facility] BILIRUBIN TOTAL S/P/B 0.3 0.2 - 1.0 MG/DL 12/27/2024 5:04 AM [facility] ALKALINE PHOSPHATASE S/P/B 187(H) 50 - 130 U/L 12/27/2024 5:04 AM [facility] AST 30 15 - 37 U/L 12/27/2024 5:04 AM [facility] ALT 22 13 - 56 U/L 12/27/2024 5:04 AM [facility] TOTAL PROTEIN S/P/B 6.5 6.4 - 8.2 G/DL 12/27/2024 5:04 AM [facility] ALBUMIN S/P/B 2.9(L) 3.4 - 5.0 G/DL 12/27/2024 5:04 AM [facility] ANION GAP 9.8 2.0 - 10.0 MMOL/L 12/27/2024 5:04 AM [facility] OSMOLALITY (CALC) 304 MOSM/KG 025 5:04 AM [facility] Comment:REFERENCE RANGE NOT ESTABLISHED GFR ESTIMATE 25(L) >90 ML/MIN/1. 73 M2 12/27/2024 5:04 AM [facility] GFR NOTES GFR REFERENCE S: 12/27/2024 5:04 AM [facility] Comment: THE ESTIMATED GFR IS [...] Angel Gonzalez MD LABORATORY Final Resu lt [facility] [address] [place] [address], [id number] * MAMMOGRAM GENERIC (11/30/2016 4:32 PM CDT) Anatomical Region Laterality Modality Other 11/30/2016 4:32 PM CDT 11/30/2016 4:32 PM CDT Narrative 11/30/2016 4:41 PM CDT MAMI TAYLOR ADMIT/SERVICE DATE: 11/18/16 ACCT: [id number] DISCHARGE DATE: : 1960 SEX: F ORD SITE: [facility] PT TYPE: REG CLI ORDERING MD: SHAN DUNBAR MD STUDY DATE REPORT # ORDER # EXT ORDER ID [id number]; [id number]; [id number]; [id number] PROC CODE: AXILNVRT PROCEDURE DESCRIPTION: US AXILLA [...] IF CLINICALLY INDICATED. EXAMINATION: BILATERAL SCREENING MAMMOGRAM [id number], [id number] COMPARISON: OUTSIDE STUDY 07/29/2011. TISSUE DENSITY: THE [...] EXAMINATION: BILATERAL DIAGNOSTIC MAMMOGRAM WITH BILATERAL ULTRASOUND. [id number], [id number] CLINICAL HISTORY: BILATERAL AXILLARY PAIN COMPARISON: NONE [...] - 01/11/2018 MAMI TAYLOR ADMIT/SERVICE DATE:11/18/16 ACCT: [id number] DISCHARGE DATE: : 1960 SEX: F ORD SITE: [facility] PT TYPE: REG CLI ORDERING MD:SHAN DUNBAR MD STUDY DATE REPORT # ORDER # EXT ORDER ID 11/18/16 [id number]; [id number]; [id number]; [id number] PROC CODE: AXILNVRT PROCEDURE DESCRIPTION: US AXILLA [...] IF CLINICALLY INDICATED. EXAMINATION: BILATERAL SCREENING MAMMOGRAM [id number], [id number] COMPARISON: OUTSIDE STUDY 07/29/2011. TISSUE DENSITY: THE [...] EXAMINATION: BILATERAL DIAGNOSTIC MAMMOGRAM WITH BILATERAL ULTRASOUND. [id number], [id number] CLINICAL HISTORY: BILATERAL AXILLARY PAIN COMPARISON: NONE [...] Resul t * Colonoscopy (03/20/2009 12:00 AM IMAGING ACCOUNT MANAGER) 03/20/2009 03/20/2009 Narrative [facility] TO EPIC CONVERSION - 03/20/2009 12:00 AM IMAGING ACCOUNT MANAGER Documented hx of procedure Procedure Note Jaime Echevarria MD - 01/21/2018 Documented hx of procedure us Generic Conversion Md ECHEVARRIA GI PROCEDURE ORDERABLES Final Result [facility] TO EP[facility] CONVERSION from Last 3 Months or Most Recently Relevant to Health Maintenance Insurance [facility] Advance Directives * Full Code (Latest Code Status on File) Date Activated Date Inactivated Comments 12/27/2024 6:46 AM 01/05/2025 5:52 PM * Full Code Date Activated Date Inactivated Comments 12/27/2024 3:44 AM 12/27/2024 6:45 AM Care Teams Director Online Marketing Relationship Specialty Start Date End Date Sumit Caballero MD [address] [place] [address] PCP - General INTERNAL MEDICINE 11/30/18
--- OUTSIDE RECORDS SUMMARY | 2025-01-08 02:48 | XMS_ITS | Clinical Summary ---
Author Organization [facility] Address [address] [place] [address] Care Team Providers Care Property Supervisor Name Role Phone No, Physician Primary Care Provider [phone] Saroj Solano MD Unavailable [phone] Allergies Active Allergy Reactions Criticality Noted Date [...] on file Legal Sex Female 1:38 AM CONCIERGE Gender Identity Not on file Sexual Orientation Not on file Obstetrics History Last Filed Vital Signs Vital Sign Reading Time Taken Comments Blood Pressure 181/96 05/24/2019 11:30 AM CONCIERGE Pulse 92 05/24/2019 11:30 AM CONCIERGE Temperature - - Respiratory Rate - - Oxygen Saturation - - Inhaled Oxygen Concentration - - Weight 78 kg (172 lb) 05/24/2019 11:30 AM CONCIERGE Height 171.5 cm (5' 7.5) 05/24/2019 11:30 AM CS T Body Mass Index 26.54 05/24/2019 11:30 AM CONCIERGE Plan of Treatment Not on file Insurance [facility] [employer] Care Teams Property Supervisor Relationship Specialty Start Date End Date No, Physician PCP - General 04/18/19 Saroj Solano MD Family Medicine 04/18/19
--- OUTSIDE RECORDS SUMMARY | 2025-01-08 02:48 | XMS_ITS | Clinical Summary ---
Author Organization [facility] Address [address] [place] [address] Care Team Providers Care Bag Mender Name Role Phone Tommie Archuleta MD Primary Care Provider [phone] Source Comments [facility],non-owned Affiliates and Associated Physician Practices is amultiple site organization consisting of ambulatory clinics and hospital sitesin [place], [place], [place] and [place]. This disclosure is being madepursuant to the Care Everywhere program and may not contain all information available regarding this patient. Last updated 17.[facility] Social History Tobacco Use Types Packs/Day Years Used Date Smoking Tobacco: Never Assessed Comments Unknown Sex and Gender Information Value Date Recorded Sex Assigned at Not on file Legal Sex Female 6:21 AM PEN TENDER Gender Identity Not on file Sexual Orientation [...] patient's age to complete this topic Insurance [facility] [place] Address: [facility] [address] [place] [address] Care Teams Bag Mender Relationship Specialty Start Date End Date Tommie Archuleta MD [address] [place] [address] PCP - General 05/21/18
--- NOTE | 2025-01-08 02:51 | ED.ABDPAIN ---
HPI - Abdominal Pain General Chief Complaint: Abdominal Pain Stated Complaint: Postoperative Pain Time Seen by Provider: 01/08/25 02:46 Source: patient and family Mode of arrival: wheelchair Limitations: no limitations History of Present Illness HPI narrative: General Chief Complaint: Abdominal Pain Stated Complaint: Postoperative Pain Time Seen by Provider: 01/07/25 22:41 Source: patient Mode of arrival: ambulatory Limitations: no limitations History of Present Illness HPI narrative: Patient is a 64-year-old female with a post surgical abdomen from a week and half ago done in [place] for ischemic bowel. She is having continued pain in the abdomen postoperatively. She was on Percocet but she ran out of Percocet. Her doctor is out of town who did the surgery. She was sent to the emergency room. She has midline large linear scar with kristi still present and a left mid abdomen stoma for stool. She has pain at both sites. MD elicited complaint: abdominal pain Pertinent past history: other (Ischemic bowel, hyperlipidemia, hypertension) Onset (ago): week(s) (One and half weeks ago) Pain Consistency: constant Location: diffuse (Specifically at the site of incision and stoma) Severity: moderate Pain scale (0-10): 5 Quality: sharp Radiation: none Migration to: no migration Exacerbating factors: nothing Relieving factors: other (Patient was taking Percocet but she ran out at this time) Context: confirms recent surgery/procedure (Ischemic bowel resection at [facility] in [place] a week and half ago) Associated symptoms: denies other symptoms Treatments prior to arrival: prescription analgesics (Percocet) Related Data Home Medications ?Medication ?Instructions ?Recorded ?Confirmed ?Last Taken ?Type lisinopril 20 mg tablet 10 mg PO HS 11/03/19 12/03/22 Unknown History simvastatin 10 mg tablet 10 mg PO DAILY 11/03/19 12/03/22 Unknown History Allergies Allergy/AdvReac Type Severity Reaction Status Date / Time Penicillins Allergy Intermediate Hives Verified 01/07/25 23:32 trimethobenzamide (Tigan) Allergy Intermediate Vomiting Verified 01/07/25 23:32 varenicline (Chantix) Allergy Intermediate Vomiting Verified 01/07/25 23:32 NSAIDS (Non-Steroidal Allergy Mild abdominal Verified 01/07/25 23:32 Anti-Inflamma pain PENICILLIN Allergy Hives Uncoded 12/03/22 12:12 TRIMETHOBENZAMIDE HCL Allergy Unknown Uncoded 12/03/22 12:12 Review of Systems Review of Systems: All systems reviewed & are unremarkable except as noted in HPI and below Constitutional: Constitutional: Reports no additional constitutional complaints Eyes: Eyes: Reports no additional eye complaints ENT: Reports system reviewed and no additional complaints, except as documented Cardiovascular: Cardiovascular: Reports no additional cardiovascular complaints Respiratory: Respiratory: Reports no additional respiratory complaints Gastrointestinal: Gastrointestinal: Reports no additional gastrointestinal complaints Genitourinary: Genitourinary: Reports no additional female genitourinary complaints Musculoskeletal: Musculoskeletal: Reports no additional musculoskeletal complaints Integumentary/Breasts: Skin/Breast: Reports system reviewed and no additional complaints, except as docu Neurologic: Reports system reviewed and no additional complaints, except as documented Psychiatric: Psychiatric: Reports no additional psychiatric complaints Endocrine: Endocrine: Reports no additional endocrine complaints Hematologic/Lymphatic: Hematologic/Lymphatic: Reports no additional hematologic/lymphatic complaints Allergic/Immunologic: Allergic/Immunologic: Reports no additional allergic/immunologic complaints PMFSH Past Medical History Medical History Emphysema lung Hyperlipidemia Hypertension Family History Family History Father Family history of type 2 diabetes mellitus Hypertension Mother Hypertension Sibling No problems noted. Social History Social History Smoking status: Current every day smoker Gender identity (if verbalized by the patient): Female Exam Const: General: healthy appearing Nutritional Appearance: well nourished Orientation/consciousness: patient oriented x3 HENMT: Head: normal to inspection Ears: external ears normal Face/Nose/Sinus: Normal external nose present Eyes: Conjunctivae: conjunctivae normal Pupils: Equal, round and reactive pupils present EOM: EOMs intact bilaterally Neck: Neck: normal visual inspection Chest: Chest palpation & inspection: normal inspection of the chest Resp: Effort & Inspection: normal respiratory effort and not labored Auscultation: clear to auscultation bilaterally and no crackles Cardio: Rate: regular rate Rhythm: regular rhythm Heart sounds: no murmurs GI: Inspection: non-distended GI Palp: Yes Soft to palpation, Yes Tenderness to palpation present (GI) (Diffuse abdomen), Yes Guarding due to palpation present (GI), No Rigid due to palpation, No Hernia present, No Palpable mass present and No Rebound tenderness present Auscultation: normal bowel sounds Other: Midline incision is clean dry and intact with kristi still present; Stoma on the left abdomen is in place and appears appropriately working at this time : General: Yes bladder normal to palpation Back/Spine/Pelvis: Back: no CVA tenderness Skin: General skin exam: normal color Rashes: no rashes Wounds: wound noted Other: See abdomen exam Neuro: General: patient oriented x3, moves all extremities and no meningeal signs Extrem: General: normal to inspection, no clubbing, cyanosis or edema and no pedal edema Psych: Mental Status: mental status grossly normal Affect: normal affect Attitude: cooperative Course Vital Signs Vital signs: Vital Signs Temperature 36.4 C L 01/07/25 22:40 Pulse Rate 82 01/07/25 22:40 Respiratory Rate 15 01/07/25 22:40 Blood Pressure 134/55 L 01/07/25 22:40 Pulse Oximetry 97 01/07/25 22:40 Oxygen Delivery Room Air 01/07/25 22:40 Temperature 36.8 C 01/08/25 02:07 Pulse Rate 97 01/08/25 01:57 Respiratory Rate 20 01/08/25 01:57 Blood Pressure 125/61 01/08/25 01:57 Pulse Oximetry 98 01/08/25 01:57 Oxygen Delivery Room Air 01/08/25 01:57 Oxygen Flow Rate 2 01/08/25 01:35 MDM - Abdominal Pain MDM Narrative Medical decision making narrative: Patient is a 64-year-old female with surgery of her abdomen for ischemic bowel resection week and half ago having continued pain and out of pain medicine. CT scan. Labs. Pain control. CT scan is concerning for AAA with a dissection flap newly found tonight with colitis postoperatively. Patient was accepted ER to ER at [facility] by the trauma surgeon. Patient is going to sign AMA and she is AAO x4 with decision-making capacity to make decision to leave against medical advice and understands that chronic permanent damage may occur versus . Form signed. She said she will be coming back in the next short period of time to be transferred after going home and dealing with some problems at home. She understands the magnitude of this situation and could occur. She also has family in the room to help her understand at the same time. Everyone is trying to get her to stay but she would like to leave at this time to deal with some home problems. Patient left AMA and then returned within 30 minutes after riding home and taking care of business. She does not appear to be intoxicated. It appears she had to deal with animals at home and family. All in all, the patient is ready for transfer ER to ER as planned 30 minutes prior at this time. No new changes or complaints at this time. There will be another chart opened however nothing new will be different than this chart. She is ready for transfer. They are going to be looking at the a abdominal aortic aneurysm with a dissection flap and colitis issues. She did not get the Flagyl as she left AMA too quickly. Will let them make decisions on antibiotics at the [facility]. Vital signs stable. Exam stable. Reviewed labs from recent encounter. Reviewed EKG. There are some EKG changes that are suspicious for ischemia and that will be further evaluated at the ER. Her troponin is normal. She is ready for transfer at this time. Lab Data Attestation: I reviewed the patient's lab results. 01/07/25 23:01 01/07/25 23:01 Labs: Lab Results 01/07/25 01/08/25 Range/Units 23:01 00:27 WBC 13.1 H (4.8-10.8) K/mm3 RBC 4.60 (4.20-5.40) M/mm3 Hgb 9.5 L (11.7-13.8) g/dL Hct 34.1 L (35.0-42.0) % MCV 74.1 L (78.0-102.0) fL MCH 20.7 L (27.0-31.0) pg MCHC 27.9 L (32-36) g/dL RDW 31.2 H (11.6-14.4) % Plt Count 818 H (150-420) K/mm3 MPV 8.8 L (9.2-11.8) fl Immature Gran % (Auto) 0.7 H (0.0-0.0) % Neut % (Auto) 69.9 (50.0-70.0) % Lymph % (Auto) 13.7 L (18.0-42.0) % [place] % (Auto) 9.3 (2.0-11.0) % Eos % (Auto) 5.3 (1.0-6.0) % Baso % (Auto) 1.1 H (0.0-1.0) % Lymph # (Auto) 1.80 (1.10-4.50) K/mm3 [place] # (Auto) 1.22 H (0.10-0.90) K/mm3 Eos # (Auto) 0.69 H (0.02-0.50) K/mm3 Baso # (Auto) 0.14 H (0.00-0.10) K/mm3 Abs Immat Gran (auto) 0.09 H (0.00-0.00) K/mm3 Absolute Neuts (auto) 9.16 H (1.70-7.20) K/mm3 Absolute Nucleated RBC 0.00 (0.00-0.00) K/mm3 Nucleated RBC % 0.0 (0-0.0) % % Immature Plt Fraction 0.8 L (1.0-7.0) % PT 10.7 (9.50-12.1) Seconds INR 1.0 APTT 26.2 (23.9-30.70) Sec Sodium 137 (137-145) mmol/L Potassium 4.0 (3.4-5.0) mmol/L Chloride 101 (98-107) mmol/L Carbon Dioxide 29 (22-30) mmol/L Anion Gap 7 (4-12) mmol/L BUN 21 H D (7-17) mg/dL Creatinine 0.83 (0.7-1.0) mg/dL Estim Creat Clear Calc 57 ml/min Estimated GFR > 60 (59 - ) Glucose 136 H (65-110) mg/dL Calculated Osmolality 289 (285-295) mOsm/kg Lactic Acid 1.5 (0.4-2.0) mmol/L Calcium 8.5 (8.4-10.2) mg/dL Total Bilirubin 0.4 (0.2-1.3) mg/dL AST 40 H (14-36) U/L ALT 25 (6-35) U/L Alkaline Phosphatase 235 H (38-126) U/L Troponin I 0.013 (0.000-0.034) ng/mL Total Protein 7.4 (6.3-8.2) g/dL Albumin 3.6 (3.5-5.1) g/dL Lipase 129 (23-300) U/L Urine Color Yellow (Yellow) Urine Appearance Clear (Clear) Urine pH 6.5 (5.0-8.0) Ur Specific [place] <= 1.005 L (1.010-1.020) Urine Protein Negative (Negative) Urine Glucose (UA) Negative (Negative) Urine Ketones Negative (Negative) Ur Blood (Man) Negative (Negative) Urine Nitrate Negative (Negative) Urine Bilirubin Negative (Negative) Urine Urobilinogen 1.0 (0.2-1.0) mg/dL Leukocyte Esterase Rfl Negative (Negative) LOREE/UL Imaging Data Attestation: I personally reviewed and interpreted this imaging study as follows: Radiologist's impression: CT scan of the abdomen and pelvis shows multiple areas of colitis and stranding with also a finding of short segment dissection flap in the distal infrarenal aorta which is new comparing to old CT scan done a few weeks ago ECG Data EKG #1: Attestation: I personally reviewed and interpreted this ECG as follows: ECG completion date: 01/08/25 ECG completion time: 02:28 normal rate, sinus rhythm, no ectopy, non-specific ST changes, normal QRS, normal QT and left axis Discharge Plan Discharge Clinical Impression: Abdominal aortic aneurysm dissection, Colitis, History of ischemic bowel disease Patient Disposition: Acute care hospital Condition: Serious Patient Language: Belarusian Prescriptions: No Action azithromycin [Zithromax] 250 mg tablet See Rx Instructions .ROUTE .COMPLEX Qty: 6 0RF Rx Instructions: For 250 mg dose pack: take 500 mg today (day 1), then 250 mg for 4 days (days 2-5) lisinopril 20 mg tablet 10 mg PO HS simvastatin 10 mg tablet 10 mg PO DAILY Zyrtec 10 mg capsule 10 mg PO BID PRN (Reason: allergy symptoms) Qty: 30 0RF prednisone 20 mg tablet 40 mg PO DAILY 5 Days Qty: 10 0RF clindamycin HCl [Cleocin HCl] 150 mg capsule 450 mg PO Q8H 10 Days Qty: 90 0RF Follow-up/Referrals: Sarika Dewey NP [Primary Care Provider, [facility]] Time of Disposition: 0307 Related Data Home Medications ?Medication ?Instructions ?Recorded ?Confirmed ?Last Taken ?Type lisinopril 20 mg tablet 10 mg PO HS 11/03/19 12/03/22 Unknown History simvastatin 10 mg tablet 10 mg PO DAILY 11/03/19 12/03/22 Unknown History Allergies Allergy/AdvReac Type Severity Reaction Status Date / Time Penicillins Allergy Intermediate Hives Verified 01/07/25 23:32 trimethobenzamide (Tigan) Allergy Intermediate Vomiting Verified 01/07/25 23:32 varenicline (Chantix) Allergy Intermediate Vomiting Verified 01/07/25 23:32 NSAIDS (Non-Steroidal Allergy Mild abdominal Verified 01/07/25 23:32 Anti-Inflamma pain PENICILLIN Allergy Hives Uncoded 12/03/22 12:12 TRIMETHOBENZAMIDE HCL Allergy Unknown Uncoded 12/03/22 12:12 [facility] Past Medical History Medical History Emphysema lung Hyperlipidemia Hypertension Family History Family History Father Family history of type 2 diabetes mellitus Hypertension Mother Hypertension Sibling No problems noted. Social History Social History Smoking status: Current every day smoker Gender identity (if verbalized by the patient): Female Course Vital Signs Vital signs: Vital Signs Temperature 36.8 C 01/08/25 02:44 Pulse Rate 93 01/08/25 02:44 Respiratory Rate 16 01/08/25 02:44 Blood Pressure 102/44 L 01/08/25 02:44 Pulse Oximetry 93 01/08/25 02:44 Oxygen Delivery Room Air 01/08/25 02:44 Temperature 36.8 C 01/08/25 02:44 Pulse Rate 93 01/08/25 02:44 Respiratory Rate 16 01/08/25 02:44 Blood Pressure 102/44 L 01/08/25 02:44 Pulse Oximetry 93 01/08/25 02:44 Oxygen Delivery Room Air 01/08/25 02:44 Discharge Plan Discharge Clinical Impression: History of ischemic bowel disease, Abdominal aortic aneurysm dissection, Colitis, Abnormal ECG Patient Disposition: Acute Care Hospital Condition: Serious Patient Language: Belarusian Prescriptions: No Action azithromycin [Zithromax] 250 mg tablet See Rx Instructions .ROUTE .COMPLEX Qty: 6 0RF Rx Instructions: For 250 mg dose pack: take 500 mg today (day 1), then 250 mg for 4 days (days 2-5) lisinopril 20 mg tablet 10 mg PO HS simvastatin 10 mg tablet 10 mg PO DAILY Zyrtec 10 mg capsule 10 mg PO BID PRN (Reason: allergy symptoms) Qty: 30 0RF prednisone 20 mg tablet 40 mg PO DAILY 5 Days Qty: 10 0RF clindamycin HCl [Cleocin HCl] 150 mg capsule 450 mg PO Q8H 10 Days Qty: 90 0RF Follow-up/Referrals: Sarika Dewey NP [Primary Care Provider, Family Practice] Time of Disposition: 03:09
[2025-01-08] MEDS: HYDROmorphone HCL INJ (*CRX) 2 MG/ML VIAL 0.5 MG IV PUSH (03:20)
[2025-01-08 03:30] VITALS: BP 114/72; PULSE 86; RESP 20; TEMP 36.6; O2SAT 98
== END 2025-01-08 03:30 | disposition short-term general hospital (02) ==
PROVIDERS: Emergency Provider Emergency Medicine; PCP Nurse Practitioner Family
DX: I71.02 Dissection of abdominal aorta (principal); K52.9 Noninfective gastroenteritis and colitis, unspecified; J43.9 Emphysema, unspecified; E78.5 Hyperlipidemia, unspecified; I10 Essential (primary) hypertension; F17.210 Nicotine dependence, cigarettes, uncomplicated
CPT/HCPCS: 96374; 99285; J1171

== ENCOUNTER 2025-01-11 13:34 | Emergency (ER) | payer OTHER, SELFPAY ==
--- OUTSIDE RECORDS SUMMARY | 2014-07-04 03:28 | XMS_ITS | Continuity of Care Document ---
Author Organization [facility] Address [address] [facility] [address] [place] [address] Phone Care Team Providers Care Block Trader Name Role Phone Roni Courtney MD Unavailable [...] Diagnoses Date Provider Providers Copied on Encounter [facility], [address], [facility], tel:[phone] [facility] No Information 5 Roz Tamayo. 1 [place], [place], [address]. tel:[phone] OFFICE/OUTPAT IENT VISIT EST [facility], [address], [address], tel:[phone] [facility] f/u mri (chief complaint) Disorder of bursae and tendons in shoulder regionOther affections of shoulder region, not elsewhere classified 5 Roz Tamayo. 621 [place], [place], [address]. tel:[phone] OFFICE/OUTPAT IENT VISIT [facility] Surgery, [address] [facility], [place], [address], [place] tel:[phone] [facility] Disorder of bursae and tendons in shoulder region Teresa. [address] [facility] [address], [place], [place], [address]. tel:[phone] Family History Family Member Type Diagnosis Age [...]
--- OUTSIDE RECORDS SUMMARY | 2025-01-11 13:37 | XMS_ITS | Clinical Summary ---
Author Organization [facility] Address [address] [place] [address] Care Team Providers Care Blueprint Maker Name Role Phone No, Physician Primary Care Provider [phone] Saroj Solano MD Unavailable [phone] Allergies Active Allergy Reactions Criticality Noted Date [...] Other Medical Brain surg. 200 0.; Comments: [facility] 05/06/2014 - Cancer (HCC) Family History [...] on file Legal Sex Female 1:38 AM [employer] Gender Identity Not on file Sexual Orientation Not on file Obstetrics History Last Filed Vital Signs Vital Sign Reading Time Taken Comments Blood Pressure 181/96 05/24/2019 11:30 AM CHOCOLATIER Pulse 92 05/24/2019 11:30 AM CHOCOLATIER Temperature - - Respiratory Rate - - Oxygen Saturation - - Inhaled Oxygen Concentration - - Weight 78 kg (172 lb) 05/24/2019 11:30 AM CHOCOLATIER Height 171.5 cm (5' 7.5) 05/24/2019 11:30 AM CS T Body Mass Index 26.54 05/24/2019 11:30 AM CHOCOLATIER Plan of Treatment Not on file Insurance [facility] CHOICE PLUS [facility] H[facility]/PPO Address: [place] [address] Care Teams Blueprint Maker Relationship Specialty Start Date End Date No, Physician PCP - General 04/18/19 Saroj Solano MD Family Medicine 04/18/19
--- OUTSIDE RECORDS SUMMARY | 2025-01-11 13:37 | XMS_ITS | Clinical Summary ---
Author Organization [facility] Address [address] [place] [address] Care Team Providers Care Radiology Rn Name Role Phone Sumit Caballero MD Primary Care Provider Allergies Active Allergy Reactions Criticality Noted Date Comments Varenicline Hives 01/08/2025 Nsaids Hives 01/08/2025 Penicillins Hives Low 11/30/2018 Pt has tolerated [...] 7 Day Supply 42 capsule 01/06/20 25 025 Active lisinopril (PRINIVIL) 20 MG tabletIndicati ons:Hypertensi [...] medical assistance becomes available 1 each 01/06/20 25 Active HYDROcodone-ac etaminophen (NORCO) 5-325 MG tabletIndicati ons:Acute Pain < 7 Day Supply Take 1 tablet by mouth every 6 (six) hours as needed. Indications: Acute Pain < 7 Day Supply 16 tablet 01/09/20 25 Active clindamycin (CLEOCIN) 300 MG capsule Take 1 capsule (300 mg total) by mouth 4 (four) times daily. 12/29/19 025 Discontin ued(Error ) diclofenac EC (VOLTAREN) 50 MG tablet Take 1 tablet (50 mg total) by mouth 2 (two) times daily. 01/08/20 025 Discontin ued(Stop Taking at Discharge ) famotidine (PEPCID) 40 MG tablet Take 1 tablet (40 mg total) by mouth 2 (two) times daily as needed. 025 Discontin ued(Stop Taking at Discharge ) hydroCHLOROthi azide (MICROZIDE) 12.5 MG tablet Take 1 tablet (12.5 mg total) by mouth every morning. 11/27/19 25 025 Discontin ued(Stop Taking at Discharge ) oxyCODONE-acet aminophen (PERCOCET) 10-325 MG tablet Take 1 tablet by mouth every 6 (six) hours as needed. 05/14/19 15 025 Discontin ued(Stop Taking at Discharge ) Active [...] Encounters Date Type Department Care Team Description 01/08/2025 8:45 AM CDT Home Care Visit [facility] Home Care [facility] [address] [place] [address] Artie Moulton RN SN NON ADMIT SOC 01/08/2025 4:39 AM CDT - 01/08/2025 7:41 AM CDT Emergency [facility] [address] [place] [address] Carlos Ricardo MD Surgery Follow Up Discharge Disposition: Home or Self Care (Routine Discharge) 01/08/2025 Travel 01/07/2025 1:15 PM CDT Home Care Visit [facility] Home Care [facility] [address] [place] [address] Maribel Sagastume RN SN NON ADMIT SOC 12/28/2024 12:34 PM CDT Anesthesia Event [facility] [address] [place] [address] Kaushik Burleson MD 12/28/2024 11:25 AM CDT - 12/28/2024 3:[address] [facility] [address] [place] [address] Niru Diaz, DO RE-LOOK LAPAROTOMY with creation of end colostomy 12/27/2024 6:23 AM CDT Anesthesia Event [facility] [address] [place] [address] Shan Mittal MD Lajeunesse, Kaylie, CRNA 12/27/2024 5:55 AM CDT - 12/27/2024 7:[address] [facility] [address] [place] [address] Niru Diaz, DO LAPAROTOMY EXPLORATORY WITH MOBILIZATION OF SPLENIC FLEXURE AND DESCENDING COLON RESECTION, ABTHERA WOUND VAC PLACEMENT 12/27/2024 2:43 AM CDT - 01/05/2025 3:46 PM CDT Hospital Encounter [facility] [address] [place] [address] Angel Gonzalez MD Imam, Syed M, Chidi Gomez MD Gowda, Chetan N, MD Discharge Disposition: Home or Self Care (Routine Discharge) 12/27/2024 Travel from Last 3 Months Social History Tobacco Use Types Packs/Day Years Used Date Smoking Tobacco: Every Day Cigarettes Smokeless Tobacco: Current Tobacco Cessation:Ready to Q uit: Not Asked; Counseling Given: Not Answered [facility] Utilities Answer Date Recorded In the past 12 months has [facility] [employer], [employer], or water [employer] threatened to shut off services in your [...] any time in the past [address] [facility], were you homeless or living in a snf (including now)? No 12/27/2024 Comments No Sex and Gender Information Value Date Recorded Sex Assigned at Female 12/27/2024 3:39 AM CDT Legal Sex Female 1:27 AM CDT Gender Identity Female 12/27/2024 3:39 AM CDT Sexual Orientation Not on file Last Filed Vital Signs Vital Sign Reading Time Taken Comments Blood Pressure 112/65 01/08/2025 4:45 AM CDT Pulse 91 01/08/2025 4:45 AM CDT Temperature 36.7 C (98.1 F) 01/05/2025 11:21 AM CDT Respiratory Rate 19 01/08/2025 4:45 AM CDT Oxygen Saturation 96% 01/08/2025 4:45 AM CDT Inhaled Oxygen Concentration - - Weight 170 kg (374 lb 12.5 oz) 01/05/2025 8:00 A M CDT Height 170.2 cm (5' 7) 12/27/2024 3:37 AM CDT Body Mass Index 58.7 12/27/2024 3:37 AM CDT Plan of Treatment Health Maintenance Due Date [...] 03/20/2009 Dexa Scan (General) 02/17/2024 COVID-19 Vaccine (1 - 2024-2 6 season) 2024 Influenza Adult (#1) 2024 [...] Case Notes OC #3ADDED ON 12/27/2024 [facility] 0730 POCT GLUCOSE - DOCKED [...] PM CDT COLONOSCOPY Routine 03/20/2009 12:00 AM 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 SODIUM S/P/B 138 136 - 145 MMOL/L 01/04/2025 5:[address] [facility] POTASSIUM S/P/B 4.4 3.5 - 5.1 MMOL/L 01/04/2025 5:[address] [facility] Comment:MILD HEMOLYSIS, RESU LT MAY BE AFFECTED. CHLORIDE S/P/B 103 97 - 115 MMOL/L 01/04/2025 5:[address] [facility] CO2 30.9 21.0 - 32.0 MMOL/L 01/04/2025 5:[address] [facility] GLUCOSE 122(H) 74 - 106 MG/DL 01/04/2025 5:[address] [facility] BUN 11 7 - 18 MG/DL 01/04/2025 5:[address] [facility] CREATININE S/P/B 0.52(L) 0.55 - 1.02 MG/DL 01/04/2025 5:[address] [facility] CALCIUM S/P/B 8.5 8.5 - 10.1 MG/DL 01/04/2025 5:[address] [facility] ANION GAP 4.1 2.0 - 10.0 MMOL/L 01/04/2025 5:[address] [facility] OSMOLALITY (CALC) 287 MOSM/KG 025 5:[address] [facility] Comment:REFERENCE RANGE NOT ESTABLISHED GFR ESTIMATE >90 >90 ML/MIN/1. 73 M2 01/04/2025 5:[address] [facility] GFR NOTES GFR REFERENCE S: 01/04/2025 5:[address] [facility] Comment: THE ESTIMATED GFR [...] <15 ml/min/1.73 m2 01/04/2025 4:40 AM CDT Montez Molina MD LABORATORY Final Result [facility] [address] [place] [address], [id number] * (ABNORMAL) CBC W/DIFF AUTOMATED (01/04/2025 4:40 AM CDT) Only the most recent of9 resultswithin the time period is included. WBC 10.58 4.00 - 10.80 x10'3/uL 01/04/2025 5:[address] [facility] RBC 4.43 4.10 - 5.40 x10'6/uL 01/04/2025 5:[address] [facility] HGB 8.8(L) 12.0 - 16.0 G/DL 01/04/2025 5:[address] [facility] HCT 32.4(L) 36.0 - 47.0 % 01/04/2025 5:[address] [facility] MCV 73.1(L) 78.0 - 100.0 FL 01/04/2025 5:[address] [facility] MCH 19.9(L) 27.0 - 31.0 PG 01/04/2025 5:[address] [facility] MCHC 27.2(L) 33.0 - 36.0 G/DL 01/04/2025 5:[address] [facility] RDW 29.3(H) 11.5 - 14.5 % 01/04/2025 5:[address] [facility] PLT 544(H) 150 - 350 x10'3/uL 01/04/2025 5:[address] [facility] MPV 9.5 7.4 - 10.4 FL 01/04/2025 5:[address] [facility] DIFFERENTIAL TYPE AUTOMATED DIFFERENTIAL 01/04/2025 6:[address] [facility] SEG NEUTROPHILS 67.8 % 6:[address] [facility] LYMPHOCYTES 13.9 % 01/04/2025 6:[address] [facility] MONOCYTES 8.5 % 01/04/2025 6:[address] [facility] EOSINOPHILS 7.1 % 01/04/2025 6:[address] [facility] BASOPHILS 0.8 % 01/04/2025 6:[address] [facility] IMMATURE GRANS % 1.7 % 01/05/20 6:[address] [facility] ABS. NEUTROPHILS 7.20 1.60 - 8.30 x10'3/uL 01/04/2025 6:[address] [facility] ABS. LYMPHOCYTES 1.47 0.80 - 4.70 x10'3/uL 01/04/2025 6:[address] [facility] ABS. MONOCYTES 0.90 0.00 - 1.50 x10'3/uL 01/04/2025 6:[address] [facility] ABS. EOSINOPHILS 0.75(H) 0.00 - 0.40 x10'3/uL 01/04/2025 6:[address] [facility] ABS. BASOPHILS 0.08 0.00 - 0.20 x10'3/uL 01/04/2025 6:[address] [facility] ABS. IMMATURE GRANULOCYTES 0.18(H) 0.00 - 0.03 x10'3/uL 01/04/2025 6:[address] [facility] ABS. NUCLEATED RBC'S 0.02(H) 0.00 - 0.01 x10'3/uL 01/04/2025 6:[address] [facility] NRBC % 0.2 % 01/04/2025 6:[address] [facility] RBC MORPHOLOGY SLIDE REVIEWED 2024 6:[address] [facility] ANISO MARKED 01/04/2025 6:[address] [facility] POIKLO MODERATE 01/04/2025 6:[address] [facility] HYPOCHROMASIA MODERATE 01/04/2025 6:[address] [facility] MICRO MODERATE 01/04/2025 6:[address] [facility] POLY SLIGHT 01/04/2025 6:[address] [facility] OVALOCYTES PRESENT 01/04/2025 6:[address] [facility] TARGET CELLS PRESENT 01/04/2025 6:[address] [facility] ACANTHOCYTES PRESENT 01/04/2025 6:[address] [facility] STOMATOCYTE PRESENT 01/04/2025 6:[address] [facility] PLT EST. INCREASED 01/04/2025 6:[address] [facility] 01/04/2025 4:40 AM CDT us Montez Molina MD LABORATORY Final Result Performing Organization Address [facility] Co de Phone Number [facility] [address] [place] [address], [phone] * PHOSPHORUS, INORGANIC PHOSPHATE (01/04/2025 4:40 AM CDT) Only the most recent of8 resultswithin the time period is included. PHOSPHORUS 4.3 2.5 - 4.9 MG/DL 01/04/2025 5:[address] [facility] 01/04/2025 4:40 AM CDT us Montez Molina MD LABORATORY Final Result Performing Organization Address [facility] de Phone Number [facility] [address] [place] [address], [phone] * MAGNESIUM (01/04/2025 4:40 AM CDT) Only the most recent of8 resultswithin the time period is included. MAGNESIUM 1.9 1.6 - 2.6 MG/DL 01/04/2025 5:[address] [facility] Comment:RESULT QUESTIONABLE DUE TO HEMOLYSIS, RECOMMEND RECOLLECTION. 01/04/2025 4:40 AM CDT us Montez Molina MD LABORATORY Final Result Performing Organization Address [facility] Co de Phone Number [facility] [address] [place] [address], [phone] * (ABNORMAL) POCT glucose (01/03/2025 11:22 AM CDT) Only the most recent of26 resultswithin the time period is included. GLUCOSE POC 194(H) 70 - 109 01/03/2025 11:[address] [facility] 01/03/2025 11:2 2 AM CDT us Montez Molina MD POCT ORDERABLES - DEVICE Final Result [facility] [address] [place] [address], [id number] * ECG 12 lead (01/02/2025 10:50 PM CDT) Only the most recent of4 resultswithin the time period is included. ECG QT 392 [facility] ECG QTC 432 [facility] 01/02/2025 10:5 0 PM CDT Narrative [facility] - 01/03/2025 11:22 AM CDT [address] [address] Test Date: 2025-01-02 Pat Name: MAMI TAYLOR Department: 1 Room: [facility] Gender: Female [employer] Drier: Severino : 1960 Requested By: SAIMA HAGER Order Number: [id number] Reading MD: Camila Pham Measurements Intervals [place] Rate: 72 P: 63 SD: 165 QRS: 24 QRSD: 95 T: 5 QT: 392 QTc: 432 Interpretive Statements SINUS RHYTHM POSSIBLE RIGHT VENTRICULAR CONDUCTION DELAY NONSPECIFIC ST & T-WAVE ABNORMALITY Procedure Note Camila Pham MD - 01/03/[address] [address] Test Date: 2025-01-02 Pat Name: MAMI TAYLOR [facility] [employer] Drier: Severino : 1960 Requested By: SAIMA HAGER Order Number: [id number] Reading MD: Camila Pham Measurements Intervals [place] Rate: 72 P: 63 SD: 165 QRS: 24 QRSD: 95 T: 5 QT: 392 QTc: 432 Interpretive Statements SINUS RHYTHM POSSIBLE RIGHT VENTRICULAR CONDUCTION DELAY NONSPECIFIC ST & T-WAVE ABNORMALITY us Saima Hager MD ECG ORDERABLES Final Result [facility] * CT ABD+PEL W CON (01/02/2025 11:10 AM CDT) Anatomical Region Laterality Modality Abdomen Computed Tomogra phy 01/02/2025 1:36 PM CDT Impressions 01/02/2025 1:56 PM CDT [...] 1:36 PM Narrative 01/02/2025 1:56 PM CDT [address] [address] EXAMINATION: CT ABD+PEL W CON EXAM DATE: [...] relatively mild left hip osteoarthritis. Procedure Note Jim Blanco DO - 01/02/2025 [facility] [address] [place], [place] [address] EXAMINATION: CT ABD+PEL W CON EXAM DATE: [...] of3 resultswithin the time period is included. [facility] TROPONIN I HIGH SENSITIVITY 21 0 - 53 ng/L 01/01/2025 7:[address] [facility] 01/01/2025 6:40 PM CDT Montez Mloina MD LABORATORY Final Result [facility] [address] [place] [address], [id number] * C AURIS,PCR,AXILLA/GROIN,NARES (01/01/2025 12:50 PM CDT) [facility] KAMLA AURIS (CLARITA/GROIN) Not Detected Not Detected 01/04/2025 2:12 PM CDT [employer] RENATA REYEZ Comment: A Not Detected result [...] analytical performance characteristics have been determined by [facility] [place], [place]. It has not been cleared or approved by the U.S. Food and Drug Administration. This assay has been validated pursuant to the CLIA regulations and is used for clinical purposes. Test Performed by [facility], [facility], [address] [place] [address] Mike Mitchell M.D., Ph.D., Director of Laboratories , CLIA [id number] 01/01/2025 12:5 0 PM CDT Montez Molina MD LABORATORY Final Result [employer] [address] , [place] [phone] * (ABNORMAL) HEMOGLOBIN AND HEMATOCRIT (12/30/2024 1:49 PM CDT) Pathologist [facility] HGB 7.9(L) 12.0 - 16.0 G/DL 12/30/2024 2:[address] [facility] HCT 28.0(L) 36.0 - 47.0 % 12/30/2024 2:[address] [facility] 12/30/2024 1:49 PM CDT Montez Molina MD LABORATORY Final Result Performing Organization Address City/[facility]/ZIP Co de Phone Number [facility] [address] [place] [address], [phone] * TRANSFUSE RED BLOOD CELLS (12/30/2024 11:22 AM CDT) Only the most recent of3 resultswithin the time period is included. us Niru Diaz DO NURSING TREATMENT ORDERABLE S - BLOOD ADMIN Final Result * (ABNORMAL) PRO-BRAIN NATRIURETIC PEPTIDE (12/30/2024 2:31 AM CDT) PRO-B TYPE NATRIURETIC PEPTIDE 3,721(H) <125 PG/ML 12/30/2024 5:[address] [facility] Comment: AGE INDEPENDENT: <300 [...] us Saima Hager MD LABORATORY Final Result [facility] [address] [place] [address], [id number] * USE mymission2 (12/29/2024 12:25 PM CDT) Anatomical Region Laterality Modality Cardiac Echocardiogram 12/29/2024 9:54 AM CDT Narrative 12/29/2024 5:31 PM CDT Echocardiography Report Pat.Name: MAMI TAYLOR Pat.ID: [id number] .Date: 12/29/2024 Refer.MD: SAIMA HAGER Exam Time: 9:54:00 AM Study Type:ECHO WITH DOPPLER LIMITED Height: 67 in Weight: 170 lb BSA: 1.89 m2 Age: 11 1960,64Y Sex: F BP: 143/66 HR: 83 bpm Sonogrphr: Alicia Norwood [facility] Pat. Stat.:Inpatient Room: ICUA CPT - 4: 69069 [id number] Reason for Study:assess intracavitary gradient (LVOT), bubble [...] MD - 12/29/2024 Echocardiography Report Pat.Name: MAMI TAYLOR Rhea.ID: [id number] .Date: 12/29/2024 Refer.MD: SAIMA HAGER Exam Time: 9:54:00 AM Study Type:ECHO WITH DOPPLER LIMITED Height: 67 in Weight: 170 lb BSA: 1.89 m2 Age: 11 1960,64Y Sex: F BP: 143/66 HR: 83 bpm Sonogrphr: Alicia Norwood [facility] Pat. Stat.:Inpatient Room: [facility] CPT - 4: 43781 [id number] [id number] Reason for Study:assess intracavitary gradient (LVOT), bubble [...] Signature> 12/29/2024 05:31 PM Saima Hager M.D. us Saima Hager MD ECHO Final Result * Pathology (12/28/2024 12:00 AM CDT) Only the most recent of2 resultswithin the time period is included. PATHOLOGY [facility] Department of Laboratory Medicine [address] [place] [address] , extension [phone] Pathology Report Surgical Pathology Report Name: MAMI TAYLOR Specimen #: [id number] Age: 11 1960 (Age: 64) Location: [facility] Sex: F Procedure Date: 12/28/2024 Hospital #: [id number] Date Received: 12/30/2024 Date Reported: 12/31/2024 Provider: [...] Gross examination (when applicable) was performed at [facility], [address] [place] [address]. This case was interpreted and signed out at [facility], [address] [place] [address]. Electronically Signed Out GARCÍA GROVES MD [facility] TISSUE (OTHER (type in comments)) 12/28/2024 1:30 PM CDT us Niru Diaz DO PATHOLOGY/CYTOLOGY ORDERABL ES Final Result [facility] [address] [place] [address], [place] [phone] [id number] * USE ECHOCARDIOGRAM W CON (12/27/2024 2:05 PM CDT) Anatomical Region Laterality Modality NA Echocardiogram 12/27/2024 1:35 PM CDT Narrative 12/27/2024 2:54 PM CDT Echocardiography Report Pat.Name: MAMI TAYLOR Rhea.ID: [id number] .Date: 12/27/2024 Refer.MD: [id number] NONE PROVIDER EWDPROV EWDPROV Exam Time: 1:35:00 PM Study Type:ECHO WITH CARDIAC DOPPLER COMP Height: 67 in Weight: 170 lb BSA: 1.89 m2 Age: 11 1960,64Y Sex: F BP: 118/53 HR: 81 bpm Sonogrphr: HAKEEM Briggs Pat. Stat.:Inpatient Room: ICUA CPT - 4: 95657 Reason for Study:Evaluate for thrombus/vegetations Procedures: 2D, [...] Mass 2D Value 159 g LV Mass [id number] Value 84.1 g/m2 Med MA LV Peak [...] 2.8 cm Right Ventricle 2.3 cm Major Rocklin 8.3 cm MMODE TA Tricuspid Annul 2.09 cm <Electronic Signature> 12/27/2024 02:54 PM Gerri Mcneal M.D. Procedure Note Gerri Mcneal, DO - 12/27/2024 Echocardiography Report Pat.Name: MAMI TAYLOR Pat.ID: [id number] .Date: 12/27/2024 Refer: [id number] NONE PROVIDER EWDPROV EWDPROV Exam Time: 1:35:00 PM Study Type:ECHO WITH CARDIAC DOPPLER COMP Height: 67 in Weight: 170 lb BSA: 1.89 m2 Age: 11 1960,64Y Sex: F BP: 118/53 HR: 81 bpm Sonogrphr: HAKEEM Briggs Pat. Stat.:[facility] CPT - 4: 58326 Reason for Study:Evaluate for thrombus/vegetations Procedures: 2D, [...] Mass 2D Value 159 g LV Mass [id number] Value 84.1 g/m2 Med MA LV Peak [...] 2.8 cm Right Ventricle 2.3 cm Major Rocklin 8.3 cm MMODE TA Tricuspid Annul 2.09 cm <Electronic Signature> 12/27/2024 02:54 PM Gerri Mcneal M.D. Niru Diaz ECHO Final Resul t * (ABNORMAL) POCT ACUTE ARTERIAL PANEL (12/27/2024 10:45 AM CDT) Only the most recent of2 resultswithin the time period is included. SODIUM WHOLE BLOOD 139 138 - 146 mmol/L 12/27/2024 10:[address] [facility] POTASSIUM WHOLE BLOOD 4.7 3.5 - 4.9 mmol/L 12/27/2024 10:[address] [facility] CA IONIZED WH BLOOD 1.12 1.12 - 1.32 mmol/L 12/27/2024 10:[address] [facility] POC PH ARTERIAL 7.285(L) 7.35 - 7.45 12/27/2024 10:[address] [facility] POC PCO2 ARTERIAL 39.8 35.0 - 45.0 MMHG 12/27/2024 10:[address] [facility] POC PO2 ARTERIAL 115(H) 80 - 105 MMHG 12/27/2024 10:[address] [facility] POC HCO3 ARTERIAL 18.9(L) 22 - 26 MMOL/L 12/27/2024 10:[address] [facility] POC TCO2 ARTERIAL 20(L) 23 - 27 MMOL/L 12/27/2024 10:[address] [facility] POC BASE DEFICIT ARTERIAL 8(H) 0 - 2 MMOL/L 12/27/2024 10:[address] [facility] POC HEMATOCRIT 29(L) 38 - 51 % 12/27/2024 10:[address] [facility] TIME TEST WAS PERFORMED: 1045 12/27/2024 10:[address] [facility] 12/27/2024 10:4 5 AM CDT us Chidi Gallagher MD POCT ORDERABLES - DEVICE Final Result [facility] [address] [place] [address], [place] [phone] * XR CHEST PORTABLE (12/27/2024 10:36 AM CDT) Anatomical Region Laterality Modality Chest Radiographic Mary ging 12/27/2024 1:44 PM CDT Impressions 12/27/2024 1:46 PM CDT IMPRESSION: The gastric tube is in the stomach. Referred By: PROVIDER NONE Interpreted By: Ayush Real MD, 12/27/2024 1:44 PM Narrative 12/27/2024 1:46 PM [address] [address] EXAM: XR CHEST PORTABLE DATE: 12/27/2024 1033 hours No comparison INDICATION: Gastric tube placement. TECHNIQUE: One view FINDINGS: Endotracheal tube is about 6 cm above the eunice. Gastric tube is in the stomach. Enlarged heart and central pulmonary vessels. Mild ill-defined lung densities. Procedure Note Ayush Real MD - 12/27/[address] [address] EXAM: XR CHEST PORTABLE DATE: 12/27/2024 1033 [...] - 2.0 MMOL/L 12/27/2024 10:[address] [facility] 12/27/2024 10:0 8 AM CDT us Chidi Gallagher MD LABORATORY Final Result [facility] [address] [place] [address], [id number] * Art Line (12/27/2024 6:56 AM CDT) [...] Secure Method: Other (comment) (CHG imbedding tegaderm) us Nathan Chicas MD SD ANESTHESIA Final Result * (ABNORMAL) LACTIC ACID W REFLEX (SEPSIS) (12/27/2024 5:54 AM CDT) Only the most recent of2 resultswithin the time period is included. LACTIC ACID VENOUS 3.1(H) 0.4 - 2.0 MMOL/L 12/27/2024 6:[address] [facility] 12/27/2024 5:54 AM CDT Angel Gonzalez MD LABORATORY Final Resu lt [facility] [address] [place] [address], [id number] * TYPE & SCREEN (12/27/2024 5:54 AM CDT) UNITS ORDERED 4 12/30/2024 6:[address] [facility] ABO/RH O POSITIVE 12/27/2024 6:[address] [facility] ANTIBODY SCREEN NEGATIVE 6:[address] [facility] SAMPLE EXPIRATION 12/30/2024,2359 12/27/2024 5:[address] [facility] BLOOD UNIT NUMBER [id number] 12/27/2024 7:[address] [facility] PRODUCT: PC LEUKOPOOR 12/27/2024 7:[address] [facility] UNIT DIVISION 00 12/27/2024 7:[address] [facility] BLOOD UNIT STATUS TRANSFUSED,FINAL 12/28/2024 1:[address] [facility] ISSUE DATE/TIME [id number] 025 1:[address] [facility] PRODUCT CODE [id number] 12/28/2024 1:[address] [facility] ABO/RH Unit O POS 12/28/2024 1:[address] [facility] ABO/RH UNIT ISBT CODE 5100 12/28/2024 1:[address] [facility] BLOOD UNIT EXPIRATION DATE [id number] 12/28/2024 1:[address] [facility] TRANSFUSION STATUS OK TO TRANSFUSE 12/27/2024 7:[address] [facility] CROSSMATCH COMPATIBLE-EXM 12/27/2024 7:[address] [facility] BLOOD UNIT NUMBER [id number] 12/27/2024 7:[address] [facility] PRODUCT: PC LEUKOPOOR 12/27/2024 7:[address] [facility] UNIT DIVISION 00 12/27/2024 7:[address] [facility] BLOOD UNIT STATUS TRANSFUSED,FINAL 12/28/2024 1:[address] [facility] ISSUE DATE/TIME [id number] 025 1:[address] [facility] PRODUCT CODE [id number] 12/28/2024 1:[address] [facility] ABO/RH Unit O POS 12/28/2024 1:[address] [facility] ABO/RH UNIT ISBT CODE 5100 12/28/2024 1:[address] [facility] BLOOD UNIT EXPIRATION DATE [id number] 12/28/2024 1:[address] [facility] TRANSFUSION STATUS OK TO TRANSFUSE 12/27/2024 7:[address] [facility] CROSSMATCH COMPATIBLE-EXM 12/27/2024 7:[address] [facility] BLOOD UNIT NUMBER [id number] 12/30/2024 8:[address] [facility] PRODUCT: PC LEUKOPOOR 12/30/2024 8:[address] [facility] UNIT DIVISION 00 12/30/2024 8:[address] [facility] BLOOD UNIT STATUS TRANSFUSED,FINAL 12/31/2024 1:[address] [facility] ISSUE DATE/TIME [id number] 025 1:[address] [facility] PRODUCT CODE [id number] 12/31/2024 1:[address] [facility] ABO/RH Unit O POS 12/31/2024 1:[address] [facility] ABO/RH UNIT ISBT CODE 5100 12/31/2024 1:[address] [facility] BLOOD UNIT EXPIRATION DATE [id number] 12/31/2024 1:[address] [facility] TRANSFUSION STATUS OK TO TRANSFUSE 12/30/2024 8:[address] [facility] CROSSMATCH COMPATIBLE-EXM 12/30/2024 8:[address] [facility] 12/27/2024 5:54 AM CDT Angel Gonzalez MD BLOOD BANK TEST ORDERABLES Final Result Performing Organization Address City/[facility] Co de Phone Number [facility] [address] [id number], [id number] * (ABNORMAL) PROTIME/INR, VENOUS (PROTHROMBIN TIME) (12/27/2024 5:54 AM CDT) PROTIME 15.0(H) 9.4 - 12.5 SEC 12/27/2024 6:[address] [facility] INR 1.3(H) 0.8 - 1.1 12/27/2024 6:[address] [facility] 12/27/2024 5:54 AM CDT Niru Diaz DO LABORATORY Final Resul t Performing Organization Address [facility] Co de Phone Number [facility] [address] [place] [address], [phone] * CULTURE, BACTERIA BLOOD X2 (12/27/2024 5:53 AM CDT) Pathologist [facility] SPEC DESCRIPTION BLOOD 12/27/2024 5:[address] [facility] SPECIAL REQUESTS NO SPECIAL REQUEST 12/27/2024 5:[address] [facility] CULTURE RESULT NO GROWTH 5 DAYS 01/01/2025 6:[address] [facility] BLOOD SPECIMEN OBTAINED FOR BLOOD CULTURE / Unknown 12/27/2024 5:53 AM CDT 12/27/2024 5:54 AM CDT us Niru Diaz DO MICROBIOLOGY - GENERAL ORDE KAI Final Result [facility] [address] [place] [address], [place] [phone] * (ABNORMAL) URINE DRUG SCREEN (TOXICOLOGY) (12/27/2024 5:42 AM CDT) [facility] PHENCYCLIDINE PCP (U) NEGATIVE NEGATIVE 12/27/2024 7:[address] [facility] BENZODIAZEPINES SCREEN (U) NEGATIVE NEGATIVE 12/27/2024 7:[address] [facility] COCAINE METABOLITES (U) NEGATIVE NEGATIVE 12/27/2024 7:[address] [facility] AMPHETAMINE (U) POSITIVE SCREEN RESULT, IF CONFIRMATION DESIRED PLEASE CONTACT LAB WITHIN ONE WEEK. (A) NEGATIVE 12/27/2024 7:[address] [facility] CANNABINOIDS SCREEN (U) NEGATIVE NEGATIVE 12/27/2024 7:[address] [facility] OPIATE SCREEN (U) POSITIVE SCREEN RESULT, IF CONFIRMATION DESIRED PLEASE CONTACT LAB WITHIN ONE WEEK. (A) NEGATIVE 12/27/2024 7:[address] [facility] BARBITURATES SCREEN (U) NEGATIVE NEGATIVE 12/27/2024 7:[address] [facility] URINE TOX COMMENT Unconfirmed screening results are to be used only for medical purposes. 12/27/2024 5:[address] [facility] CUTOFF CONCENTRATION (U) Cut-off Concentration for a positive result 12/27/2024 5:[address] [facility] Comment: Phencyclidine 25 ng/mL Benzodiazepines 200 ng/mL Cocaine 300 ng/mL Amphetamine 1000 ng/mL Cannabinoids 50 ng/mL Opiates 300 ng/mL Barbiturates 200 ng/mL URINE SPECIMEN / Unknown 12/27/2024 5:42 AM CDT us Niru Diaz DO URINE ORDERABLES Final Resu lt [facility] [address] [place] [address], [id number] * (ABNORMAL) URINALYSIS (12/27/2024 5:42 AM CDT) COLOR (U) YELLOW 12/27/2024 7:[address] [facility] TRANSPARENCY CLEAR 12/27/2024 7:[address] [facility] SPECIFIC GRAVITY (U) 1.020 1.002 - 1.035 12/27/2024 7:[address] [facility] U PH 5.0 5 - 8 12/27/2024 7:[address] [facility] PROTEIN RANDOM (U) 20(A) NEGATIVE 12/27/2024 7:[address] [facility] GLUCOSE (U) NEGATIVE NEGATIVE MG/DL 12/27/2024 7:[address] [facility] KETONES MG/DL (U) NEGATIVE NEGATIVE 12/27/2024 7:[address] [facility] BILIRUBIN (U) NEGATIVE NEGATIVE 12/27/2024 7:[address] [facility] BLOOD (U) NEGATIVE NEGATIVE 12/27/2024 7:[address] [facility] NITRITES NEGATIVE NEGATIVE 12/27/2024 7:[address] [facility] UROBILINOGEN NORMAL 0 - 1 EU/DL 12/27/2024 7:[address] [facility] LEUKOCYTES (U) NEGATIVE NEGATIVE 12/27/2024 7:[address] [facility] RBC/HPF <1 0 - 3 /HPF 12/27/2024 7:[address] [facility] WBC/HPF 2 0 - 6 /HPF 12/27/2024 7:[address] [facility] BACTERIA (U) PRESENT /HPF 12/27/2024 7:[address] [facility] SQUAMOUS EPITHELIALS 2 12/27/2024 7:[address] [facility] AMORPHOUS SEDIMENT PRESENT 12/27/2024 7:[address] [facility] URINE SPECIMEN OBTAINED BY CLEAN CATCH PROCEDURE / Unknown 12/27/2024 5:42 AM CDT us Angel Gonzalez MD URINE ORDERABLES Final Res ult [facility] [address] [place] [address], [phone] * (ABNORMAL) COMPREHENSIVE METABOLIC PANEL (12/27/2024 4:10 AM CDT) SODIUM S/P/B 138 136 - 145 MMOL/L 12/27/2024 5:[address] [facility] POTASSIUM S/P/B 4.6 3.5 - 5.1 MMOL/L 12/27/2024 5:[address] [facility] CHLORIDE S/P/B 109 97 - 115 MMOL/L 12/27/2024 5:[address] [facility] CO2 19.2(L) 21.0 - 32.0 MMOL/L 12/27/2024 5:[address] [facility] GLUCOSE 160(H) 74 - 106 MG/DL 12/27/2024 5:04 AM [facility] BUN 54(H) 7 - 18 MG/DL 12/27/2024 5:04 AM [facility] CREATININE S/P/B 2.16(H) 0.55 - 1.02 MG/DL 12/27/2024 5:04 AM [facility] CALCIUM S/P/B 8.1(L) 8.5 - 10.1 MG/DL 12/27/2024 5:04 AM [facility] BILIRUBIN TOTAL S/P/B 0.3 0.2 - 1.0 MG/DL 12/27/2024 5:04 AM [facility] ALKALINE PHOSPHATASE S/P/B 187(H) 50 - 130 U/L 12/27/2024 5:04 AM [facility] AST 30 15 - 37 U/L 12/27/2024 5:04 AM [facility] ALT 22 13 - 56 U/L 12/27/2024 5:04 AM [facility] TOTAL PROTEIN S/P/B 6.5 6.4 - 8.2 G/DL 12/27/2024 5:04 AM [facility] ALBUMIN S/P/B 2.9(L) 3.4 - 5.0 G/DL 12/27/2024 5:04 AM [facility] ANION GAP 9.8 2.0 - 10.0 MMOL/L 12/27/2024 5:04 AM [facility] OSMOLALITY (CALC) 304 MOSM/KG 025 5:04 AM [facility] Comment:REFERENCE RANGE NOT ESTABLISHED GFR ESTIMATE 25(L) >90 ML/MIN/1. 73 M2 12/27/2024 5:04 AM [facility] GFR NOTES GFR REFERENCE S: 12/27/2024 5:04 AM [facility] Comment: THE ESTIMATED GFR IS [...] Angel Gonzalez MD LABORATORY Final Resu lt [facility] [address] [place] [address], [phone] * MAMMOGRAM GENERIC (11/30/2016 4:32 PM CDT) Anatomical Region Laterality Modality Other 11/30/2016 4:32 PM CDT 11/30/2016 4:32 PM CDT Narrative 11/30/2016 4:41 PM CDT MAMI TAYLOR ADMIT/SERVICE DATE: 11/18/16 ACCT: [id number] DISCHARGE DATE: : 1960 SEX: F ORD SITE: [facility] PT TYPE: REG CLI ORDERING MD: SHAN DUNBAR MD STUDY DATE REPORT # ORDER # EXT ORDER ID 11/18/16 [id number]; [id number]; [id number]; [id number]; [id number] PROC CODE: AXILNVRT PROCEDURE DESCRIPTION: US AXILLA [...] IF CLINICALLY INDICATED. EXAMINATION: BILATERAL SCREENING MAMMOGRAM [id number], [id number] COMPARISON: OUTSIDE STUDY 07/29/2011. TISSUE DENSITY: THE BREAST TISSUE CONTAINS SCATTERED FIBROGLANDULAR DENSITIES. FINDINGS: NO SUSPICIOUS MASSES, MALIGNANT APPEARING CALCIFICATIONS, SKIN THICKENING OR OTHER ABNORMALITIES ARE PRESENT. NO SIGNIFICANT CHANGE FROM THE PRIOR EXAM. ELECTRONICALLY SIGNED BY: SHAN ACE 4:36 PM ORIGINAL REPORT IMPRESSION: NO MAMMOGRAPHIC FINDINGS SUGGESTIVE OF MALIGNANCY ASSESSMENT: ACR BI-RADS CATEGORY 2 - BENIGN. RECOMMENDATION: 1: CLINICAL MANAGEMENT BILATERAL COMMENTS: LACK OF CORRELATE ON ULTRASOUND OR MAMMOGRAM SHOULD NOT DELAY BIOPSY OR OTHER FURTHER EVALUATION OF AXILLARY PAIN CLINICALLY INDICATED. EXAMINATION: BILATERAL DIAGNOSTIC MAMMOGRAM WITH BILATERAL ULTRASOUND. [id number], [id number] CLINICAL HISTORY: BILATERAL AXILLARY PAIN COMPARISON: NONE [...] ELECTRONICALLY SIGNED BY: SHAN ACE 4:42 PM Procedure Note Jaime Echevarria MD - 01/11/2018 PAMMAMI HEREDIA ADMIT/SERVICE DATE:11/18/16 ACCT: [id number] DISCHARGE DATE: : 1960 SEX: F ORD SITE: [facility] PT TYPE: REG CLI ORDERING MD:SHAN DUNBAR MD STUDY DATE REPORT # ORDER # EXT ORDER ID 11/18/16 [id number]; [id number]; [id number]; [id number]; [id number] PROC CODE: AXILNVRT PROCEDURE DESCRIPTION: US AXILLA [...] IF CLINICALLY INDICATED. EXAMINATION: BILATERAL SCREENING MAMMOGRAM [id number], [id number] COMPARISON: OUTSIDE STUDY 07/29/2011. TISSUE DENSITY: THE [...] EXAMINATION: BILATERAL DIAGNOSTIC MAMMOGRAM WITH BILATERAL ULTRASOUND. 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) 03/20/2009 03/20/2009 Narrative [facility] CONVERSION - 03/20/2009 12:00 AM PROJECT ACCOUNT MANAGER Documented hx of procedure Procedure Note , Generic Paige, - 01/21/2018 Documented hx of procedure us Generic Conversion Md ECHEVARRIA GI PROCEDURE ORDERABLES Final Result Performing Organization Address City/State/[facility] Co de Phone Number [facility] TO EPIC CONVERSION from Last 3 Months or Most Recently Relevant to Health Maintenance Insurance [facility] Advance Directives * Full Code (Latest Code Status on File) Date Activated Date Inactivated Comments 12/27/2024 6:46 AM 01/05/2025 5:52 PM * Full Code Date Activated Date Inactivated Comments 12/27/2024 3:44 AM 12/27/2024 6:45 AM Care Teams Radiology Rn Relationship Specialty Start Date End Date Sumit Caballero MD [address] [place] [address] PCP - General INTERNAL MEDICINE 11/30/18
--- OUTSIDE RECORDS SUMMARY | 2025-01-11 13:37 | XMS_ITS | Clinical Summary ---
Author Organization [facility] Address [address] [place] [address] Care Team Providers Care An/Sqq 89(V)15 Sonar System Journeyman Name Role Phone Tommie Archuleta MD Primary Care Provider [phone] Source Comments [facility],non-owned Affiliates and Associated Physician Practices is amultiple site organization consisting of ambulatory clinics and hospital sitesin [place], [place], [place] and [place]. This disclosure is being madepursuant to the Care Everywhere program and may not contain all information available regarding this patient. 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
[2025-01-11 13:38] VITALS: BP 157/69; PULSE 81; RESP 16; TEMP 36.6; O2SAT 100
--- NOTE | 2025-01-11 13:44 | ED.ABDPAIN ---
HPI - Abdominal Pain General Chief Complaint: Abdominal Pain Stated Complaint: abdominal wound check Time Seen by Provider: 01/11/25 13:37 Source: patient and family Mode of arrival: wheelchair Limitations: no limitations History of Present Illness HPI narrative: This is a 64-year-old female who presents with some abdominal pain, recently had abdominal surgery for ischemic bowel but currently there is no deep abdominal pain with palpation has been out of her medication has a colostomy bag and midline sutures in her abdomen with some musculoskeletal pain with palpation with no tenderness with deep palpation no fever chills no nausea vomiting no diarrhea constipation. The area around the colostomy bag appears erythematous warm and tender to touch. MD elicited complaint: abdominal pain Onset (ago): hour(s) Pain Consistency: constant Severity: mild Related Data Home Medications ?Medication ?Instructions ?Recorded ?Confirmed ?Last Taken ?Type lisinopril 20 mg tablet 10 mg PO HS 11/03/19 12/03/22 Unknown History simvastatin 10 mg tablet 10 mg PO DAILY 11/03/19 12/03/22 Unknown History Allergies Allergy/AdvReac Type Severity Reaction Status Date / Time Penicillins Allergy Intermediate Hives Verified 01/11/25 13:41 trimethobenzamide (Tigan) Allergy Intermediate Vomiting Verified 01/11/25 13:41 varenicline (Chantix) Allergy Intermediate Vomiting Verified 01/11/25 13:41 NSAIDS (Non-Steroidal Allergy Mild abdominal Verified 01/11/25 13:41 Anti-Inflamma pain PENICILLIN Allergy Hives Uncoded 12/03/22 12:12 TRIMETHOBENZAMIDE HCL Allergy Unknown Uncoded 12/03/22 12:12 Review of Systems Review of Systems: All systems reviewed & are unremarkable except as noted in HPI and below PMFSH Past Medical History Medical History Emphysema lung Hyperlipidemia Hypertension Family History Family History Father Family history of type 2 diabetes mellitus Hypertension Mother Hypertension Sibling No problems noted. Social History Social History Smoking status: Current every day smoker Gender identity (if verbalized by the patient): Female Exam Const: General: healthy appearing Nutritional Appearance: well nourished Orientation/consciousness: patient oriented x3 Limitations: no limitations Resp: Effort & Inspection: normal respiratory effort Auscultation: clear to auscultation bilaterally Cardio: Rate: regular rate Rhythm: regular rhythm GI: GI Palp: Yes Soft to palpation Auscultation: normal bowel sounds Back/Spine/Pelvis: Back: no CVA tenderness Skin: Other: Around the suture line and colostomy bag there are appears to be erythema warmth and tenderness Course Course Emergency Course: Medical decision making narrative: The patient was evaluated by myself in the emergency department. History obtained from patient to his independent historian and physical exam performed in witnessed by a tack. External medical records were reviewed at this time. Patient has been out of her Percocet and on close examination around the colostomy site there appears to be erythema warmth consistent with cellulitis. Repeat assessment: Patient doing well on repeat exam with no acute distress Repeat vitals are stable Patient agrees with discussion after shared medical decision making and agrees with discharge. All questions answered to the patient's satisfaction. Advised follow-up with her Primary/surgeon in 3 to 5 days for further evaluation treatment. Patient provided with strict return precautions and return to the ED if any worsening symptoms. Vital Signs Vital signs: Vital Signs Temperature 36.6 C 01/11/25 13:38 Pulse Rate 81 01/11/25 13:38 Respiratory Rate 16 01/11/25 13:38 Blood Pressure 157/69 H 01/11/25 13:38 Pulse Oximetry 100 01/11/25 13:38 Oxygen Delivery Room Air 01/11/25 13:38 Temperature 36.6 C 01/11/25 13:38 Pulse Rate 81 01/11/25 13:38 Respiratory Rate 16 01/11/25 13:38 Blood Pressure 157/69 H 01/11/25 13:38 Pulse Oximetry 100 01/11/25 13:38 Oxygen Delivery Room Air 01/11/25 13:38 Critical Care Time Critical Care Time Critical Care Time: No Discharge Plan Discharge Clinical Impression: Cellulitis Qualifiers: Site of cellulitis: extremity Site of cellulitis of extremity: upper extremity Laterality: left Qualified Code(s): L03.114 - Cellulitis of left upper limb Patient Disposition: Home Condition: Stable Instructions: Antibiotic Form, Cellulitis (ED) Additional Instructions: Advised patient to take medication as prescribed and follow-up with Primary/surgeon in the next 3 to 5 days for further evaluation and treatment. Patient Language: Chinese Prescriptions: New levofloxacin 500 mg tablet 500 mg PO DAILY Qty: 7 0RF oxycodone-acetaminophen [Percocet] 5-325 mg tablet 1 tablet PO Q6H PRN (Reason: pain) Qty: 20 0RF No Action azithromycin [Zithromax] 250 mg tablet See Rx Instructions .ROUTE .COMPLEX Qty: 6 0RF Rx Instructions: For 250 mg dose pack: take 500 mg today (day 1), then 250 mg for 4 days (days 2-5) lisinopril 20 mg tablet 10 mg PO HS simvastatin 10 mg tablet 10 mg PO DAILY Zyrtec 10 mg capsule 10 mg PO BID PRN (Reason: allergy symptoms) Qty: 30 0RF prednisone 20 mg tablet 40 mg PO DAILY 5 Days Qty: 10 0RF clindamycin HCl [Cleocin HCl] 150 mg capsule 450 mg PO Q8H 10 Days Qty: 90 0RF Follow-up/Referrals: Sarika Dewey NP [Primary Care Provider, Family Practice]
--- NOTE | 2025-01-11 13:45 | PC.NURSE ---
ERP denies need for wound culture.
[2025-01-11] MEDS: oxyCODONE/ACETAMINOPHEN (*CRX) 5-325 MG TABLET 1 TABLET PO (13:55)
--- OUTSIDE RECORDS SUMMARY | 2025-01-11 14:03 | XMS_ITS | Clinical Summary ---
Author Organization [facility] Address [address] [place] [address] Care Team Providers Care Ergonomics Technician Name Role Phone Sumit Caballero MD Primary Care Provider [phone] Allergies Active Allergy Reactions Criticality Noted Date [...] 01/08/2025 8:45 AM CDT Home Care Visit [facility] Home Care [facility] [address] [place] [address] Artie Moulton RN SN NON ADMIT SOC 01/08/2025 4:39 AM CDT - 01/08/2025 7:41 AM CDT Emergency [facility] [address] [place] [address] Carlos Ricardo MD Surgery Follow Up Discharge Disposition: Home or Self Care (Routine Discharge) 01/08/2025 Travel 01/07/2025 1:15 PM CDT Home Care Visit [facility] Home Care [facility] [address] [place] [address] Maribel Sagastume RN SN NON ADMIT SOC 12/28/2024 12:34 PM CDT Anesthesia [facility] [address] [place] [address] Kaushik Burleson MD 12/28/2024 11:25 AM CDT - 12/28/2024 3:16 PM CDT Surgery [facility] [address] [place] [address] Niru Diaz, DO RE-LOOK LAPAROTOMY with creation of end colostomy 12/27/2024 6:23 AM CDT Anesthesia Event [facility] OR [address] [place] [address] Shan Mittal MD Lajeunesse, Kaylie, CRNA 12/27/2024 5:55 AM CDT - 12/27/2024 7:47 AM CDT Surgery [facility] OR [address] [place] [address] Niru Diaz, DO LAPAROTOMY EXPLORATORY WITH MOBILIZATION OF SPLENIC FLEXURE AND DESCENDING COLON RESECTION, ABTHERA WOUND VAC PLACEMENT 12/27/2024 2:43 AM CDT - 01/05/2025 3:46 PM CDT Hospital Encounter [facility] [address] [place] [address] Angel Gonzalez MD Imam, Syed M, Chidi Gomez MD Gowda, Chetan N, MD Discharge Disposition: Home or Self Care (Routine Discharge) 12/27/2024 Travel from Last 3 Months Social History Tobacco Use Types Packs/Day Years Used Date Smoking Tobacco: Every Day Cigarettes Smokeless Tobacco: Current Tobacco Cessation:Ready to Q uit: Not Asked; Counseling Given: Not Answered [facility] Utilities Answer Date Recorded In the past 12 months has [facility] [place], Sprinkle, or water [facility] threatened to shut off services in your [...] any time in the past 12 m [facility], were you homeless or living in a halfway (including now)? No 12/27/2024 Comments No Sex [...] Case Notes OC #3ADDED ON 12/27/2024 @ [facility] MACHINE AVAILABLEWANTS 0730 POCT GLUCOSE - [...] PM CDT COLONOSCOPY Routine 03/20/2009 12:00 AM LEGISLATORS from Last 3 Months or Most Recently Relevant to Health Maintenance Results * (ABNORMAL) BASIC METABOLIC PANEL (01/04/2025 4:40 AM CDT) Only the most recent of8 resultswithin the time period is included. SODIUM S/P/B 138 136 - 145 MMOL/L 01/04/2025 5:55 AM CDT [facility] POTASSIUM S/P/B 4.4 3.5 - 5.1 MMOL/L 01/04/2025 5:55 AM CDT [facility] Comment:MILD HEMOLYSIS, RESU LT MAY BE AFFECTED. CHLORIDE S/P/B 103 97 - 115 MMOL/L 01/04/2025 5:55 AM CDT [facility] CO2 30.9 21.0 - 32.0 MMOL/L 01/04/2025 5:55 AM CDT [facility] GLUCOSE 122(H) 74 - 106 MG/DL 01/04/2025 5:55 AM CDT [facility] BUN 11 7 - 18 MG/DL 01/04/2025 5:55 AM CDT [facility] CREATININE S/P/B 0.52(L) 0.55 - 1.02 MG/DL 01/04/2025 5:55 AM CDT [facility] CALCIUM S/P/B 8.5 8.5 - 10.1 MG/DL 01/04/2025 5:55 AM CDT [facility] ANION GAP 4.1 2.0 - 10.0 MMOL/L 01/04/2025 5:55 AM CDT [facility] OSMOLALITY (CALC) 287 MOSM/KG 025 5:55 AM CDT [facility] Comment:REFERENCE RANGE NOT ESTABLISHED GFR ESTIMATE >90 >90 ML/MIN/1. 73 M2 01/04/2025 5:55 AM CDT [facility] GFR NOTES GFR REFERENCE S: 01/04/2025 5:55 AM CDT [facility] Comment: THE ESTIMATED GFR IS CALCULATED [...] CDT Montez Molina MD LABORATORY Final Result [facility] [address] [place] [address], [phone] * (ABNORMAL) CBC W/DIFF AUTOMATED (01/04/2025 4:40 AM CDT) Only the most recent of9 resultswithin the time period is included. WBC 10.58 4.00 - 10.80 x10'3/uL 01/04/2025 5:06 AM CDT [facility] RBC 4.43 4.10 - 5.40 x10'6/uL 01/04/2025 5:06 AM CDT [facility] HGB 8.8(L) 12.0 - 16.0 G/DL 01/04/2025 5:06 AM CDT [facility] HCT 32.4(L) 36.0 - 47.0 % 01/04/2025 5:06 AM CDT [facility] MCV 73.1(L) 78.0 - 100.0 FL 01/04/2025 5:06 AM CDT [facility] MCH 19.9(L) 27.0 - 31.0 PG 01/04/2025 5:06 AM CDT [facility] MCHC 27.2(L) 33.0 - 36.0 G/DL 01/04/2025 5:06 AM CDT [facility] RDW 29.3(H) 11.5 - 14.5 % 01/04/2025 5:06 AM CDT [facility] PLT 544(H) 150 - 350 x10'3/uL 01/04/2025 5:06 AM CDT [facility] MPV 9.5 7.4 - 10.4 FL 01/04/2025 5:06 AM CDT [facility] DIFFERENTIAL TYPE AUTOMATED DIFFERENTIAL 01/04/2025 6:09 AM CDT [facility] SEG NEUTROPHILS 67.8 % 6:09 AM CDT [facility] LYMPHOCYTES 13.9 % 01/04/2025 6:09 AM CDT [facility] MONOCYTES 8.5 % 01/04/2025 6:09 AM CDT [facility] EOSINOPHILS 7.1 % 01/04/2025 6:09 AM CDT [facility] BASOPHILS 0.8 % 01/04/2025 6:09 AM CDT [facility] IMMATURE GRANS % 1.7 % 01/05/20 6:09 AM CDT [facility] ABS. NEUTROPHILS 7.20 1.60 - 8.30 x10'3/uL 01/04/2025 6:09 AM CDT [facility] ABS. LYMPHOCYTES 1.47 0.80 - 4.70 x10'3/uL 01/04/2025 6:09 AM CDT [facility] ABS. MONOCYTES 0.90 0.00 - 1.50 x10'3/uL 01/04/2025 6:09 AM CDT [facility] ABS. EOSINOPHILS 0.75(H) 0.00 - 0.40 x10'3/uL 01/04/2025 6:09 AM CDT [facility] ABS. BASOPHILS 0.08 0.00 - 0.20 x10'3/uL 01/04/2025 6:09 AM CDT [facility] ABS. IMMATURE GRANULOCYTES 0.18(H) 0.00 - 0.03 x10'3/uL 01/04/2025 6:09 AM CDT [facility] ABS. NUCLEATED RBC'S 0.02(H) 0.00 - 0.01 x10'3/uL 01/04/2025 6:09 AM CDT [facility] NRBC % 0.2 % 01/04/2025 6:09 AM CDT [facility] RBC MORPHOLOGY SLIDE REVIEWED 2024 6:09 AM CDT [facility] ANISO MARKED 01/04/2025 6:09 AM CDT [facility] POIKLO MODERATE 01/04/2025 6:09 AM CDT [facility] HYPOCHROMASIA MODERATE 01/04/2025 6:09 AM CDT [facility] MICRO MODERATE 01/04/2025 6:09 AM CDT [facility] POLY SLIGHT 01/04/2025 6:09 AM CDT [facility] OVALOCYTES PRESENT 01/04/2025 6:09 AM CDT [facility] TARGET CELLS PRESENT 01/04/2025 6:09 AM CDT [facility] ACANTHOCYTES PRESENT 01/04/2025 6:09 AM CDT [facility] STOMATOCYTE PRESENT 01/04/2025 6:09 AM CDT [facility] PLT EST. INCREASED 01/04/2025 6:09 AM CDT [facility] 01/04/2025 4:40 AM CDT us Montez Molina MD LABORATORY Final Result Performing Organization Address [facility] Co de Phone Number [facility] [address] [place] [address], [phone] * PHOSPHORUS, INORGANIC PHOSPHATE (01/04/2025 4:40 AM CDT) Only the most recent of8 resultswithin the time period is included. PHOSPHORUS 4.3 2.5 - 4.9 MG/DL 01/04/2025 5:55 AM CDT [facility] 01/04/2025 4:40 AM CDT us Montez Molina MD LABORATORY Final Result Performing Organization Address [facility] de Phone Number [facility] [address] [place] [address], [phone] * MAGNESIUM (01/04/2025 4:40 AM CDT) Only the most recent of8 resultswithin the time period is included. MAGNESIUM 1.9 1.6 - 2.6 MG/DL 01/04/2025 5:55 AM CDT [facility] Comment:RESULT QUESTIONABLE DUE TO HEMOLYSIS, RECOMMEND RECOLLECTION. 01/04/2025 4:40 AM CDT us Montez Molina MD LABORATORY Final Result Performing Organization Address [facility] Co de Phone Number [facility] [address] [place] [address], [phone] * (ABNORMAL) POCT glucose (01/03/2025 11:22 AM CDT) Only the most recent of26 resultswithin the time period is included. GLUCOSE POC 194(H) 70 - 109 01/03/2025 11:32 AM CDT [facility] 01/03/2025 11:2 2 AM CDT us Montez Molina MD POCT ORDERABLES - DEVICE Final Result [facility] [address] [place] [address], [id number] * ECG 12 lead (01/02/2025 10:50 PM CDT) Only the most recent of4 resultswithin the time period is included. ECG QT 392 [facility] ECG QTC 432 [facility] 01/02/2025 10:5 0 PM CDT Narrative [facility] - 01/03/2025 11:22 AM CDT [address] [address] Test Date: 2025-01-02 Pat Name: MAMI TAYLOR Department: 1 Room: [facility] Gender: Female Physician Office Assistant: Severino : 1960 Requested By: SAIMA HAGER Order Number: [id number] Reading MD: Camila Pham Measurements Intervals [place] Rate: 72 P: 63 CT: 165 QRS: 24 QRSD: 95 T: 5 QT: 392 QTc: 432 Interpretive Statements SINUS RHYTHM POSSIBLE RIGHT VENTRICULAR CONDUCTION DELAY NONSPECIFIC ST & T-WAVE ABNORMALITY Procedure Note Camila Pham MD - 01/03/[address] [address] Test Date: 2025-01-02 Pat Name: MAMI TAYLOR [facility] Gender: Female Physician Office Assistant: Severino : 1960 Requested By: SAIMA HAGER Order Number: [id number] Reading MD: Camila Pham Measurements Intervals [place] Rate: 72 P: 63 CT: 165 QRS: 24 QRSD: 95 T: 5 QT: 392 QTc: 432 Interpretive Statements SINUS RHYTHM POSSIBLE RIGHT VENTRICULAR CONDUCTION DELAY NONSPECIFIC ST & T-WAVE ABNORMALITY us Saima Hager MD ECG ORDERABLES Final Result [facility] * CT ABD+PEL W CON [...] 1:36 PM Narrative 01/02/2025 1:56 PM CDT [address] [address] EXAMINATION: CT ABD+PEL W CON EXAM DATE: [...] Procedure Note Jim Blanco DO - 01/02/2025 [facility] [address] [place], [place] [address] EXAMINATION: CT ABD+PEL W CON EXAM DATE: [...] of3 resultswithin the time period is included. [facility] TROPONIN I HIGH SENSITIVITY 21 0 - 53 ng/L 01/01/2025 7:17 PM CDT [facility] 01/01/2025 6:40 PM CDT Montez Molina MD LABORATORY Final Result [facility] [address] [place] [address], [id number] * C AURIS,PCR,AXILLA/GROIN,NARES (01/01/2025 12:50 PM CDT) [facility] KAMLA AURIS (CLARITA/GROIN) Not Detected Not Detected 01/04/2025 2:12 PM CDT [facility] Comment: A Not Detected result [...] analytical performance characteristics have been determined by [employer] [place], [place]. It has not been cleared or approved by the U.S. Food and Drug Administration. This assay has been validated pursuant to the CLIA regulations and is used for clinical purposes. Test Performed by [facility], [employer] [facility], [address] [place] [address] Mike Mitchell M.D., Ph.D., Director of Laboratories , CLIA [id number] 01/01/2025 12:5 0 PM CDT Montez Molina MD LABORATORY Final Result [facility] [address] , [place] [phone] * (ABNORMAL) HEMOGLOBIN AND HEMATOCRIT (12/30/2024 1:49 PM CDT) Pathologist [facility] HGB 7.9(L) 12.0 - 16.0 G/DL 12/30/2024 2:03 PM CDT [facility] HCT 28.0(L) 36.0 - 47.0 % 12/30/2024 2:03 PM CDT [facility] 12/30/2024 1:49 PM CDT Montez Molina MD LABORATORY Final Result Performing Organization Address City/[facility]/ZIP Co de Phone Number [facility] [address] [place] [address], [phone] * TRANSFUSE RED BLOOD CELLS (12/30/2024 11:22 AM CDT) Only the most recent of3 resultswithin the time period is included. us Niru Diaz DO NURSING TREATMENT ORDERABLE S - BLOOD ADMIN Final Result * (ABNORMAL) PRO-BRAIN NATRIURETIC PEPTIDE (12/30/2024 2:31 AM CDT) PRO-B TYPE NATRIURETIC PEPTIDE 3,721(H) <125 PG/ML 12/30/2024 5:01 AM CDT [facility] Comment: AGE INDEPENDENT: <300 PG/ML HAS [...] us Saima Hager MD LABORATORY Final Result [facility] [address] [place] [address], [id number] * USE Striped Sail (12/29/2024 12:25 PM CDT) Anatomical Region Laterality Modality Cardiac Echocardiogram 12/29/2024 9:54 AM CDT Narrative 12/29/2024 5:31 PM CDT Echocardiography Report Pat.Name: MAMI TAYLOR Pat.ID: [id number] .Date: 12/29/2024 Refer.MD: SAIMA HAGER Exam Time: 9:54:00 AM Study Type:ECHO WITH DOPPLER LIMITED Height: 67 in Weight: 170 lb BSA: 1.89 m2 Age: 11 1960,64Y Sex: F BP: 143/66 HR: 83 bpm Sonogrphr: Alicia Norwood [facility] Pat. Stat.:Inpatient Room: ICUA CPT - 4: 28685 [id number] Reason for Study:assess intracavitary gradient (LVOT), bubble [...] 12/29/2024 Echocardiography Report Pat.Name: MAMI TAYLOR Rhea.ID: [id number] .Date: 12/29/2024 Refer.MD: SAIMA HAGER Exam Time: 9:54:00 AM Study Type:ECHO WITH DOPPLER LIMITED Height: 67 in Weight: 170 lb BSA: 1.89 m2 Age: 11 1960,64Y Sex: F BP: 143/66 HR: 83 bpm Sonogrphr: Alicia Norwood [facility] Pat. Stat.:Inpatient Room: [facility] CPT - 4: 67696 [id number] Reason for Study:assess intracavitary gradient (LVOT), bubble [...] resultswithin the time period is included. PATHOLOGY [facility] Department of Laboratory Medicine [address] [place] [address] , extension [phone] Pathology Report Surgical Pathology Report Name: MAMI TAYLOR Specimen #: [id number] Age: 11 1960 (Age: 64) Location: [facility] Sex: F Procedure Date: 12/28/2024 Hospital #: [id number] Date Received: 12/30/2024 Date Reported: 12/31/2024 Provider: [...] Gross examination (when applicable) was performed at [facility], [address] [place] [address]. This case was interpreted and signed out at [facility], [address] [place] [address]. Electronically Signed Out GARCÍA GROVES MD [facility] TISSUE (OTHER (type in comments)) 12/28/2024 1:30 PM CDT us Niru Diaz DO PATHOLOGY/CYTOLOGY ORDERABL ES Final Result [facility] [address] [place] [address], [place] [phone] * USE ECHOCARDIOGRAM W CON (12/27/2024 2:05 PM CDT) Anatomical Region Laterality Modality NA Echocardiogram 12/27/2024 1:35 PM CDT Narrative 12/27/2024 2:54 PM CDT Echocardiography Report Pat.Name: MAMI TAYLOR Rhea.ID: [id number] .Date: 12/27/2024 Refer.MD: [id number] NONE PROVIDER EWDPROV EWDPROV Exam Time: 1:35:00 PM Study Type:ECHO WITH CARDIAC DOPPLER COMP Height: 67 in Weight: 170 lb BSA: 1.89 m2 Age: 11 1960,64Y Sex: F BP: 118/53 HR: 81 bpm Sonogrphr: HAKEEM Briggs Pat. Stat.:Inpatient Room: ICUA CPT - 4: 31631 Reason for Study:Evaluate for thrombus/vegetations Procedures: 2D, [...] Mass 2D Value 159 g LV Mass [id number] Value 84.1 g/m2 Med MA LV Peak [...] 2.8 cm Right Ventricle 2.3 cm Major [place] 8.3 cm MMODE TA Tricuspid Annul 2.09 cm <Electronic Signature> 12/27/2024 02:54 PM Gerri Mcneal M.D. Procedure Note Gerri Mcneal, DO - 12/27/2024 Echocardiography Report Pat.Name: MAMI TAYLOR Pat.ID: [id number] .Date: 12/27/2024 Refer: [id number] NONE PROVIDER EWDPROV EWDPROV Exam Time: 1:35:00 PM Study Type:ECHO WITH CARDIAC DOPPLER COMP Height: 67 in Weight: 170 lb BSA: 1.89 m2 Age: 11 1960,64Y Sex: F BP: 118/53 HR: 81 bpm Sonogrphr: HAKEEM Briggs Pat. Stat.:Inpatient Room: [facility] CPT - 4: 73201 Reason for Study:Evaluate for thrombus/vegetations Procedures: 2D, [...] Mass 2D Value 159 g LV Mass [id number] Value 84.1 g/m2 Med MA LV Peak [...] 2.8 cm Right Ventricle 2.3 cm Major [place] 8.3 cm MMODE TA Tricuspid Annul 2.09 cm <Electronic Signature> 12/27/2024 02:54 PM Gerri Mcneal M.D. Niru Diaz ECHO Final Resul t * (ABNORMAL) POCT ACUTE ARTERIAL PANEL (12/27/2024 10:45 AM CDT) Only the most recent of2 resultswithin the time period is included. SODIUM WHOLE BLOOD 139 138 - 146 mmol/L 12/27/2024 10:51 AM CDT [facility] POTASSIUM WHOLE BLOOD 4.7 3.5 - 4.9 mmol/L 12/27/2024 10:51 AM CDT [facility] CA IONIZED WH BLOOD 1.12 1.12 - 1.32 mmol/L 12/27/2024 10:51 AM CDT [facility] POC PH ARTERIAL 7.285(L) 7.35 - 7.45 12/27/2024 10:51 AM T [facility] POC PCO2 ARTERIAL 39.8 35.0 - 45.0 MMHG 12/27/2024 10:51 AM CDT [facility] POC PO2 ARTERIAL 115(H) 80 - 105 MMHG 12/27/2024 10:51 AM T [facility] POC HCO3 ARTERIAL 18.9(L) 22 - 26 MMOL/L 12/27/2024 10:51 AM CDT [facility] POC TCO2 ARTERIAL 20(L) 23 - 27 MMOL/L 12/27/2024 10:51 AM T [facility] POC BASE DEFICIT ARTERIAL 8(H) 0 - 2 MMOL/L 12/27/2024 10:51 AM T [facility] POC HEMATOCRIT 29(L) 38 - 51 % 12/27/2024 10:51 AM CDT [facility] TIME TEST WAS PERFORMED: 1045 12/27/2024 10:51 AM CDT [facility] 12/27/2024 10:4 5 AM CDT us Chidi Gallagher MD POCT ORDERABLES - DEVICE Final Result [facility] [address] [place] [address], [place] [phone] [id number] * XR CHEST PORTABLE (12/27/2024 10:36 AM CDT) Anatomical Region Laterality Modality Chest Radiographic Mary ging 12/27/2024 1:44 PM CDT Impressions 12/27/2024 1:46 PM CDT IMPRESSION: The gastric tube is in the stomach. Referred By: PROVIDER NONE Interpreted By: Ayush Real MD, 12/27/2024 1:44 PM Narrative 12/27/2024 1:46 PM [address] [address] EXAM: XR CHEST PORTABLE DATE: 12/27/2024 1033 hours No comparison INDICATION: Gastric tube placement. TECHNIQUE: One view FINDINGS: Endotracheal tube is about 6 cm above the eunice. Gastric tube is in the stomach. Enlarged heart and central pulmonary vessels. Mild ill-defined lung densities. Procedure Note Ayush Real MD - 12/27/[address] [address] EXAM: XR CHEST PORTABLE DATE: 12/27/2024 1033 [...] - 2.0 MMOL/L 12/27/2024 10:52 AM CDT [facility] 12/27/2024 10:0 8 AM CDT us Chidi Gallagher MD LABORATORY Final Result [facility] [address] [place] [address], [phone] * Art Line (12/27/2024 6:56 AM CDT) [...] (CHG imbedding tegaderm) us Nathan Chicas MD CT ANESTHESIA Final Result * (ABNORMAL) LACTIC ACID W REFLEX (SEPSIS) (12/27/2024 5:54 AM CDT) Only the most recent of2 resultswithin the time period is included. LACTIC ACID VENOUS 3.1(H) 0.4 - 2.0 MMOL/L 12/27/2024 6:46 AM CDT [facility] 12/27/2024 5:54 AM CDT Angel Gonzalez MD LABORATORY Final Resu lt [facility] [address] [place] [address], [id number] * TYPE & SCREEN (12/27/2024 5:54 AM CDT) UNITS ORDERED 4 12/30/2024 6:44 AM CDT [facility] ABO/RH O POSITIVE 12/27/2024 6:35 AM CDT [facility] ANTIBODY SCREEN NEGATIVE 6:35 AM CDT [facility] SAMPLE EXPIRATION 12/30/2024,2359 12/27/2024 5:58 AM CDT [facility] BLOOD UNIT NUMBER [id number] 12/27/2024 7:10 AM CDT [facility] PRODUCT: PC LEUKOPOOR 12/27/2024 7:10 AM CDT [facility] UNIT DIVISION 00 12/27/2024 7:10 AM CDT [facility] BLOOD UNIT STATUS TRANSFUSED,FINAL 12/28/2024 1:49 AM CDT [facility] ISSUE DATE/TIME [id number] 025 1:49 AM CDT [facility] PRODUCT CODE [id number] 12/28/2024 1:49 AM CDT [facility] ABO/RH Unit O POS 12/28/2024 1:49 AM CDT [facility] ABO/RH UNIT ISBT CODE 5100 12/28/2024 1:49 AM CDT [facility] BLOOD UNIT EXPIRATION DATE [id number] 12/28/2024 1:49 AM CDT [facility] TRANSFUSION STATUS OK TO TRANSFUSE 12/27/2024 7:10 AM CDT [facility] CROSSMATCH COMPATIBLE-EXM 12/27/2024 7:10 AM CDT [facility] BLOOD UNIT NUMBER [id number] 12/27/2024 7:10 AM CDT [facility] PRODUCT: PC LEUKOPOOR 12/27/2024 7:10 AM CDT [facility] UNIT DIVISION 00 12/27/2024 7:10 AM CDT [facility] BLOOD UNIT STATUS TRANSFUSED,FINAL 12/28/2024 1:49 AM CDT [facility] ISSUE DATE/TIME [id number] 025 1:49 AM CDT [facility] PRODUCT CODE [id number] 12/28/2024 1:49 AM CDT [facility] ABO/RH Unit O POS 12/28/2024 1:49 AM CDT [facility] ABO/RH UNIT ISBT CODE 5100 12/28/2024 1:49 AM CDT [facility] BLOOD UNIT EXPIRATION DATE [id number] 12/28/2024 1:49 AM CDT [facility] TRANSFUSION STATUS OK TO TRANSFUSE 12/27/2024 7:10 AM CDT [facility] CROSSMATCH COMPATIBLE-EXM 12/27/2024 7:10 AM CDT [facility] BLOOD UNIT NUMBER [id number] 12/30/2024 8:35 AM CDT [facility] PRODUCT: PC LEUKOPOOR 12/30/2024 8:35 AM CDT [facility] UNIT DIVISION 00 12/30/2024 8:35 AM CDT [facility] BLOOD UNIT STATUS TRANSFUSED,FINAL 12/31/2024 1:09 AM CDT [facility] ISSUE DATE/TIME [id number] 1:09 AM CDT [facility] PRODUCT CODE [id number] 12/31/2024 1:09 AM CDT [facility] ABO/RH Unit O POS 12/31/2024 1:09 AM CDT [facility] ABO/RH UNIT ISBT CODE 5100 12/31/2024 1:09 AM CDT [facility] BLOOD UNIT EXPIRATION DATE [id number] 12/31/2024 1:09 AM CDT [facility] TRANSFUSION STATUS OK TO TRANSFUSE 12/30/2024 8:35 AM CDT [facility] CROSSMATCH COMPATIBLE-EXM 12/30/2024 8:35 AM CDT [facility] 12/27/2024 5:54 AM CDT Angel Gonzalez MD BLOOD BANK TEST ORDERABLES Final Result Performing Organization Address City/[facility] Co de Phone Number [facility] [address] [id number], [phone] * (ABNORMAL) PROTIME/INR, VENOUS (PROTHROMBIN TIME) (12/27/2024 5:54 AM CDT) PROTIME 15.0(H) 9.4 - 12.5 SEC 12/27/2024 6:37 AM CDT [facility] INR 1.3(H) 0.8 - 1.1 12/27/2024 6:37 AM CDT [facility] 12/27/2024 5:54 AM CDT Niru Diaz DO LABORATORY Final Resul t Performing Organization Address [facility] Co de Phone Number [facility] [address] [place] [address], [id number] * CULTURE, BACTERIA BLOOD X2 (12/27/2024 5:53 AM CDT) Pathologist [facility] SPEC DESCRIPTION BLOOD 12/27/2024 5:35 AM CDT [facility] SPECIAL REQUESTS NO SPECIAL REQUEST 12/27/2024 5:35 AM CDT [facility] CULTURE RESULT NO GROWTH 5 DAYS 01/01/2025 6:02 AM CDT [facility] BLOOD SPECIMEN OBTAINED FOR BLOOD CULTURE / Unknown 12/27/2024 5:53 AM CDT 12/27/2024 5:54 AM CDT us Niru Diaz DO MICROBIOLOGY - GENERAL ORDE KAI Final Result [facility] [address] [place] [address], [place] [phone] [id number] * (ABNORMAL) URINE DRUG SCREEN (TOXICOLOGY) (12/27/2024 5:42 AM CDT) [facility] PHENCYCLIDINE PCP (U) NEGATIVE NEGATIVE 12/27/2024 7:06 AM CDT [facility] BENZODIAZEPINES SCREEN (U) NEGATIVE NEGATIVE 12/27/2024 7:06 AM CDT [facility] COCAINE METABOLITES (U) NEGATIVE NEGATIVE 12/27/2024 7:06 AM CDT [facility] AMPHETAMINE (U) POSITIVE SCREEN RESULT, IF CONFIRMATION DESIRED PLEASE CONTACT LAB WITHIN ONE WEEK. (A) NEGATIVE 12/27/2024 7:06 AM CDT [facility] CANNABINOIDS SCREEN (U) NEGATIVE NEGATIVE 12/27/2024 7:06 AM CDT [facility] OPIATE SCREEN (U) POSITIVE SCREEN RESULT, IF CONFIRMATION DESIRED PLEASE CONTACT LAB WITHIN ONE WEEK. (A) NEGATIVE 12/27/2024 7:06 AM CDT [facility] BARBITURATES SCREEN (U) NEGATIVE NEGATIVE 12/27/2024 7:06 AM CDT [facility] URINE TOX COMMENT Unconfirmed screening results are to be used only for medical purposes. 12/27/2024 5:54 AM CDT [facility] CUTOFF CONCENTRATION (U) Cut-off Concentration for a positive result 12/27/2024 5:54 AM CDT [facility] Comment: Phencyclidine 25 ng/mL Benzodiazepines 200 ng/mL Cocaine 300 ng/mL Amphetamine 1000 ng/mL Cannabinoids 50 ng/mL Opiates 300 ng/mL Barbiturates 200 ng/mL URINE SPECIMEN / Unknown 12/27/2024 5:42 AM CDT us Niru Diaz DO URINE ORDERABLES Final Resu lt [facility] [address] [place] [address], [id number] * (ABNORMAL) URINALYSIS (12/27/2024 5:42 AM CDT) COLOR (U) YELLOW 12/27/2024 7:01 AM CDT [facility] TRANSPARENCY CLEAR 12/27/2024 7:01 AM T [facility] SPECIFIC GRAVITY (U) 1.020 1.002 - 1.035 12/27/2024 7:01 AM T [facility] U PH 5.0 5 - 8 12/27/2024 7:01 AM T [facility] PROTEIN RANDOM (U) 20(A) NEGATIVE 12/27/2024 7:01 AM CDT [facility] GLUCOSE (U) NEGATIVE NEGATIVE MG/DL 12/27/2024 7:01 AM CDT [facility] KETONES MG/DL (U) NEGATIVE NEGATIVE 12/27/2024 7:01 AM CDT [facility] BILIRUBIN (U) NEGATIVE NEGATIVE 12/27/2024 7:01 AM CDT [facility] BLOOD (U) NEGATIVE NEGATIVE 12/27/2024 7:01 AM T [facility] NITRITES NEGATIVE NEGATIVE 12/27/2024 7:01 AM CDT [facility] UROBILINOGEN NORMAL 0 - 1 EU/DL 12/27/2024 7:01 AM CDT [facility] LEUKOCYTES (U) NEGATIVE NEGATIVE 12/27/2024 7:01 AM CDT [facility] RBC/HPF <1 0 - 3 /HPF 12/27/2024 7:01 AM CDT [facility] WBC/HPF 2 0 - 6 /HPF 12/27/2024 7:01 AM CDT [facility] BACTERIA (U) PRESENT /HPF 12/27/2024 7:01 AM CDT [facility] SQUAMOUS EPITHELIALS 2 12/27/2024 7:01 AM CDT [facility] AMORPHOUS SEDIMENT PRESENT 12/27/2024 7:01 AM CDT [facility] URINE SPECIMEN OBTAINED BY CLEAN CATCH PROCEDURE / Unknown 12/27/2024 5:42 AM CDT us Angel Gonzalez MD URINE ORDERABLES Final Res ult [facility] [address] [place] [address], [id number] * (ABNORMAL) COMPREHENSIVE METABOLIC PANEL (12/27/2024 4:10 AM CDT) SODIUM S/P/B 138 136 - 145 MMOL/L 12/27/2024 5:04 AM CDT [facility] POTASSIUM S/P/B 4.6 3.5 - 5.1 MMOL/L 12/27/2024 5:04 AM CDT [facility] CHLORIDE S/P/B 109 97 - 115 MMOL/L 12/27/2024 5:04 AM CDT [facility] CO2 19.2(L) 21.0 - 32.0 MMOL/L 12/27/2024 5:04 AM CDT [facility] GLUCOSE 160(H) 74 - 106 MG/DL 12/27/2024 5:04 AM [facility] BUN 54(H) 7 - 18 MG/DL 12/27/2024 5:04 AM [facility] CREATININE S/P/B 2.16(H) 0.55 - 1.02 MG/DL 12/27/2024 5:04 AM [facility] CALCIUM S/P/B 8.1(L) 8.5 - 10.1 MG/DL 12/27/2024 5:04 AM [facility] BILIRUBIN TOTAL S/P/B 0.3 0.2 - 1.0 MG/DL 12/27/2024 5:04 AM [facility] ALKALINE PHOSPHATASE S/P/B 187(H) 50 - 130 U/L 12/27/2024 5:04 AM [facility] AST 30 15 - 37 U/L 12/27/2024 5:04 AM [facility] ALT 22 13 - 56 U/L 12/27/2024 5:04 AM [facility] TOTAL PROTEIN S/P/B 6.5 6.4 - 8.2 G/DL 12/27/2024 5:04 AM [facility] ALBUMIN S/P/B 2.9(L) 3.4 - 5.0 G/DL 12/27/2024 5:04 AM [facility] ANION GAP 9.8 2.0 - 10.0 MMOL/L 12/27/2024 5:04 AM [facility] OSMOLALITY (CALC) 304 MOSM/KG 025 5:04 AM [facility] Comment:REFERENCE RANGE NOT ESTABLISHED GFR ESTIMATE 25(L) >90 ML/MIN/1. 73 M2 12/27/2024 5:04 AM [facility] GFR NOTES GFR REFERENCE S: 12/27/2024 5:04 AM [facility] Comment: THE ESTIMATED GFR IS [...] Gonzalez MD LABORATORY Final Resu lt [facility] [address] [place] [address], [id number] * MAMMOGRAM GENERIC (11/30/2016 4:32 PM CDT) Anatomical Region Laterality Modality Other 11/30/2016 4:32 PM CDT 11/30/2016 4:32 PM CDT Narrative 11/30/2016 4:41 PM CDT MAMI TAYLOR ADMIT/SERVICE DATE: 11/18/16 ACCT: [id number] DISCHARGE DATE: : 1960 SEX: F ORD SITE: [facility] PT TYPE: REG CLI ORDERING MD: SHAN DUNBAR MD STUDY DATE REPORT # ORDER # EXT ORDER ID 11/18/16 [id number]; [id number]; [id number]; [id number]; [id number] PROC CODE: AXILNVRT PROCEDURE DESCRIPTION: US AXILLA [...] IF CLINICALLY INDICATED. EXAMINATION: BILATERAL SCREENING MAMMOGRAM [id number], [id number] COMPARISON: OUTSIDE STUDY 07/29/2011. TISSUE DENSITY: THE [...] EXAMINATION: BILATERAL DIAGNOSTIC MAMMOGRAM WITH BILATERAL ULTRASOUND. [id number], [id number] CLINICAL HISTORY: BILATERAL AXILLARY PAIN COMPARISON: NONE [...] - 01/11/2018 PAMMAMI HEREDIA ADMIT/SERVICE DATE:11/18/16 ACCT: [id number] DISCHARGE DATE: : 1960 SEX: F ORD SITE: [facility] PT TYPE: REG CLI ORDERING MD:SHAN DUNBAR MD STUDY DATE REPORT # ORDER # EXT ORDER ID 11/18/16 [id number]; [id number]; [id number]; [id number]; [id number] PROC CODE: AXILNVRT PROCEDURE DESCRIPTION: US AXILLA [...] IF CLINICALLY INDICATED. EXAMINATION: BILATERAL SCREENING MAMMOGRAM [id number], [id number] COMPARISON: OUTSIDE STUDY 07/29/2011. TISSUE DENSITY: THE [...] EXAMINATION: BILATERAL DIAGNOSTIC MAMMOGRAM WITH BILATERAL ULTRASOUND. [id number], [id number] CLINICAL HISTORY: BILATERAL AXILLARY PAIN COMPARISON: NONE [...] Resul t * Colonoscopy (03/20/2009 12:00 AM [facility]) 03/20/2009 03/20/2009 Narrative [facility] TO EPIC CONVERSION - 03/20/2009 12:00 AM [facility] Documented hx of procedure Procedure Note , Generic Paige, - 01/21/2018 Documented hx of procedure us Generic Conversion Md [facility] PROCEDURE ORDERABLES Final Result Performing Organization Address City/State/[facility] Co de Phone Number [facility] TO EPIC CONVERSION from Last 3 Months or Most Recently Relevant to Health Maintenance Insurance [facility] Advance Directives * Full Code (Latest Code Status on File) Date Activated Date Inactivated Comments 12/27/2024 6:46 AM 01/05/2025 5:52 PM * Full Code Date Activated Date Inactivated Comments 12/27/2024 3:44 AM 12/27/2024 6:45 AM Care Teams Ergonomics Technician Relationship Specialty Start Date End Date Sumit Caballero MD [address] [place] [address] PCP - General INTERNAL MEDICINE 11/30/18
--- OUTSIDE RECORDS SUMMARY | 2025-01-11 14:03 | XMS_ITS | Clinical Summary ---
Author Organization [facility] Address [address] [place] [address] Care Team Providers Care Licensed Marine Engineer Name Role Phone No, Physician Primary Care Provider [phone] Saroj Solano MD Unavailable [phone] Allergies Active Allergy Reactions Criticality Noted Date [...] Other Medical Brain surg. 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
--- OUTSIDE RECORDS SUMMARY | 2025-01-11 14:03 | XMS_ITS | Clinical Summary ---
Author Organization [facility] Address [address] [place] [address] Care Team Providers Care Hydrate Control Tender Name Role Phone Tommie Archuleta MD Primary Care Provider [phone] [facility] [employer],non-owned Affiliates and Associated Physician Practices is amultiple site organization consisting of ambulatory clinics and hospital sitesin [place], [place], [place] and [place]. This disclosure is being madepursuant to the Care Everywhere program and may not contain all information available regarding this patient. Last updated 17.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
--- NOTE | 2025-01-11 14:04 | PC.NURSE ---
Per ERP patient may discharge immediately following medication administration.
[2025-01-11 14:10] VITALS: BP 157/69; PULSE 81; RESP 16; TEMP 36.6; O2SAT 100
--- NOTE | 2025-01-13 12:23 | PC.NURSE ---
BLOOD CULTURE PRELIMINARY RESULT: NO GROWTH. WAITING ON FINAL RESULTS AT THIS TIME.
== END 2025-01-11 14:10 | disposition home or self-care (01) ==
PROVIDERS: Emergency Provider Emergency Medicine; PCP Nurse Practitioner Family
DX: L03.114 Cellulitis of left upper limb (principal); I10 Essential (primary) hypertension; J43.9 Emphysema, unspecified; E78.5 Hyperlipidemia, unspecified; F17.200 Nicotine dependence, unspecified, uncomplicated
CPT/HCPCS: 99283; A9270

== ENCOUNTER 2025-01-13 22:03 | Emergency (ER) | payer OTHER, SELFPAY ==
--- OUTSIDE RECORDS SUMMARY | 2014-07-04 03:28 | XMS_ITS | Continuity of Care Document ---
Author Organization [facility] Address [address] [facility] [address] [place] [address] Phone Care Team Providers Care Lamination Spinner Name Role Phone Roni Courtney MD Unavailable [...] Diagnoses Date Provider Providers Copied on Encounter [facility], [address], [facility], tel:[phone] [facility] No Information 5 Roz Tamayo. 1 [place], [place], [address]. tel:[phone] OFFICE/OUTPAT IENT VISIT EST [facility], [address], [address], tel:[phone] [facility] f/u mri (chief complaint) Disorder of bursae and tendons in shoulder regionOther affections of shoulder region, not elsewhere classified 5 Roz Tamayo. 621 [place], [place], [address]. tel:[phone] OFFICE/OUTPAT IENT VISIT [facility], [address] [facility], [place], [address], [place] tel:[phone] [facility] Disorder of bursae and tendons in shoulder region Teresa. [address] [facility] [address], [place], [place], [address]. tel:[phone] Family History Family Member Type Diagnosis Age [...]
--- NOTE | ~2025-01-13 | CT_ITS ---
CT ABDOMEN AND PELVIS WITHOUT CONTRAST Clinical History: pain WHERE colostomy IS Comparison: 01/08/2025 Technique: Unenhanced axial images lung bases to symphysis pubis Coronal, sagittal reformats CT images acquired with automatic exposure control for dose reduction DLP: 409 mGy-cm Findings: Without intravenous contrast, sensitivity for detecting visceral parenchymal abnormalities decreased. Lung bases: Atelectasis and/or scarring right side. Visualized heart and pericardium: Cardiomegaly. Liver: Enlarged. Gallbladder: Removed. Spleen: Unremarkable. Pancreas: Unremarkable. Adrenal glands: Unremarkable. Kidneys: Right kidney- No hydronephrosis. No renal stones. Left kidney- No hydronephrosis. No renal stones. Distal esophagus/stomach: Large hiatal hernia. Small bowel loops: Normal caliber and wall thickness. Colon: Mayo pouch. Left lower quadrant end colostomy. Wall thickening along stomal segment. Nodes: No enlarged nodes. Peritoneum: No ascites. No free intraperitoneal air. Urinary bladder: Unremarkable. Uterus: Removed. Adnexa: No masses. Bones: No acute bony abnormality. Soft tissues: Unremarkable. Unopacified abdominal aorta: Atherosclerotic disease, with foci of ectasia. IMPRESSION: 1. Colitis of stomal segment persists. Reviewed, dictated and finalized at location R.
[2025-01-13 22:04] VITALS: BP 106/63; PULSE 84; RESP 18; TEMP 36.8; O2SAT 96
--- OUTSIDE RECORDS SUMMARY | 2025-01-13 22:05 | XMS_ITS | Clinical Summary ---
Author Organization [facility] Address [address] [place] [address] Care Team Providers Care Hat Brim Curler Name Role Phone Tommie Archuleta MD Primary Care Provider Source Comments [facility] [email or web address],non-owned Affiliates and Associated Physician Practices is amultiple site organization consisting of ambulatory clinics and hospital sitesin [place], [place], [place] and [place]. This disclosure is being madepursuant to the Care Everywhere program and may not contain all information available regarding this patient. 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 [place] [address] Care Teams Hat Brim Curler Relationship Specialty Start Date End Date Tommie Archuleta MD [address] [place] [address] PCP - General 05/21/18
--- OUTSIDE RECORDS SUMMARY | 2025-01-13 22:05 | XMS_ITS | Clinical Summary ---
Author Organization [facility] Address [address] [place] [address] Care Team Providers Care Clinical Nurse Specialist Name Role Phone Sumit Caballero MD Primary Care Provider [phone] Allergies Active Allergy Reactions Criticality Noted Date Comments Varenicline Hives 01/08/2025 Nsaids Hives 01/08/2025 Penicillins Hives Low 11/30/2018 Pt has tolerated cefuroxime (07/2024), cefepime (12/2024) Trimethobenzamide Itching Medium 11/30/2018 Medications albuterol sulfate HFA (VENTOLIN HFA) 108 (90 Base) MCG/ACT inhalerIndicat ions:sob Inhale 1-2 puffs into the lungs. Indications: sob 07/15/19 17 Active simvastatin 20 MG tablet [...] medical assistance becomes available 1 each 01/06/20 026 Active HYDROcodone-ac etaminophen (NORCO) 5-325 MG tabletIndicati ons:Acute Pain < 7 Day Supply Take 1 tablet by mouth every 6 (six) hours as needed. Indications: Acute Pain < 7 Day Supply 16 tablet 01/09/20 25 Active Esomeprazole Magnesium 20 MG Tab ECIndications: gerd Take 40 mg by mouth daily. Indications: gerd 01/12/20 25 Active clindamycin (CLEOCIN) 300 MG capsule [...] mouth 2 (two) times daily as needed. 10/19/2 025 Discontin ued(Stop Taking at Discharge ) [...] Encounters Date Type Department Care Team Description 01/12/2025 Home Care Visit [facility] Home [facility] [address] [place] [address] Sarika Abel RN CASE COMMUNICATION 01/11/2025 11:00 AM CDT Home Care Visit [facility] [address] [place] [address] Aida Foss RN SN OASIS START OF CARE 01/11/2025 Plan of Care Documentation [facility] [address] [place] [address] 01/08/2025 8:45 AM CDT Home Care Visit [facility] [address] [place] [address] Artie Moulton RN SN NON ADMIT SOC 01/08/2025 4:39 AM CDT - 01/08/2025 7:41 AM CDT Emergency [facility] [address] [place] [address] Carlos Ricardo MD Surgery Follow Up Discharge Disposition: Home or Self Care (Routine Discharge) 01/08/2025 Travel 01/07/2025 1:15 PM CDT Home Care Visit [facility] Home Care [facility] [address] [place] [address] Maribel Sagastume RN SN NON ADMIT SOC 12/28/2024 12:34 PM CDT Anesthesia Event [facility] [address] [place] [address] Kaushik Burleson MD 12/28/2024 11:25 AM CDT - 12/28/2024 3:16 PM CDT Surgery [facility] [address] [place] [address] Niru Diaz, DO RE-LOOK LAPAROTOMY with creation of end colostomy 12/27/2024 6:23 AM CDT Anesthesia Event [facility] [address] [place] [address] Shan Mittal MD Lajeunesse, Kaylie, CRNA 12/27/2024 5:55 AM CDT - 12/27/2024 7:47 AM CDT Surgery [facility] [address] [place] [address] Niru Diaz, DO LAPAROTOMY EXPLORATORY WITH MOBILIZATION OF SPLENIC FLEXURE AND DESCENDING COLON RESECTION, ABTHERA WOUND VAC PLACEMENT 12/27/2024 2:43 AM CDT - 01/05/2025 3:46 PM CDT Hospital Encounter [facility] [address] [place] [address] Angel Gonzalez MD Imam, Syed M, Chidi Gomez MD Gowda, Chetan N, MD Discharge Disposition: Home or Self Care (Routine Discharge) 12/27/2024 Travel from Last 3 Months Social History Tobacco Use Types Packs/Day Years Used Date Smoking Tobacco: Every Day Cigarettes Smokeless Tobacco: Current Tobacco Cessation:Ready to Q uit: Not Asked; Counseling Given: Not Answered OASIS D0700: Social Isolation Answer Da te Recorded Frequency of experiencing loneliness or isolatio n Never 01/11/2025 OASIS A1250: Transportation Answer Date Recorded Lack of Transportation (Medical) No 01/11/2025 Lack of Transportation (Non-Medical) No 01/11/2025 Patient Unable or Declines to Respond No 01/11/2025 OASIS B1300: Health Literacy Answer Jeffery e Recorded Frequency of needing help to read materials from doctor or pharmacy Never 01/11/2025 [facility] Utilities Answer Date Recorded In the past 12 months has th e [employer], gas, oil, or water [employer] threatened to shut off services in your [...] money to buy more. Never true 12/28/19 Within the past 12 months, t he [...] any time in the past 12 m [facility], were you homeless or living in a care home (including now)? No 12/27/2024 Comments No Sex and Gender Information Value Date Recorded Sex Assigned at Female 12/27/2024 3:39 AM CDT Legal Sex Female 1:27 AM CDT Gender Identity Female 12/27/2024 3:39 AM CDT Sexual Orientation Not on file Last Filed Vital Signs Vital Sign Reading Time Taken Comments Blood Pressure 142/70 01/11/2025 12:21 PM CDT Pulse 78 01/11/2025 12:21 PM CDT Temperature 36.9 C (98.4 F) 01/11/2025 12:21 PM CDT Respiratory Rate 16 01/11/2025 12:21 PM CDT Oxygen Saturation 99% 01/11/2025 12:21 PM CDT Inhaled Oxygen Concentration - - Weight 170 kg (374 lb 12.5 oz) 01/05/2025 8:00 A M CDT Height 170.2 cm (5' 7) 12/27/2024 3:37 AM CDT Body Mass Index 58.7 12/27/2024 3:37 AM CDT Plan of Treatment Upcoming Encounters Date Type Department Care Team (Late st Contact Info) Description 01/14/2025 11:00 AM CDT Appointment [facility] Care [facility] [address] [place] [address] Kristine Barreto, PT [address] [place] [address] 01/14/2025 1:00 PM CDT Appointment [facility] [address] [place] [address] Niru Juarez LPN 01/14/2025 1:00 PM CDT Appointment [facility] [address] [place] [address] Sarika Villeda [facility] RN 01/16/2025 9:30 AM CDT Appointment [facility] Care [facility] [address] [place] [address] Otilia Phelps, OT [address] [place] [address] 01/17/2025 10:15 AM CDT Appointment [facility] Care [facility] [address] [place] [address] Alexus Arreaga, RN 01/21/2025 1:00 PM [employer] Appointment [place] [address] [place] [address] Alexus Arreaga, RN 01/24/2025 12:00 PM [employer] Appointment [facility] Care [place] [address] [place] [address] Alexus Arreaag, RN 01/28/2025 12:00 PM [employer] Appointment [facility] [address] [place] [address] Alexus Arreaga, RN 02/04/2025 12:00 PM [employer] Appointment [facility] [address] [place] [address] Alexus Arreaga, RN 02/11/2025 11:30 AM [employer] Appointment [facility] Care [facility] [address] [place] [address] Alexus Arreaga, RN 02/18/2025 9:00 AM [employer] Appointment [facility] Care [place] [address] [place] [address] Alexus Arreaga, RN 02/25/2025 8:00 AM [employer] Appointment [facility] [address] [place] [address] Alexus Arreaga, RN 03/04/2025 8:00 AM [employer] Appointment [facility] Care [facility] [address] [place] [address] Alexus Arreaga, RN 03/11/2025 8:00 AM [employer] Appointment [facility] Care [facility] [address] [place] [address] Alexus Arreaga, RN Health Maintenance Due Date Last Done Comments Hepatitis C 1977 DTaP, Tdap and Td Vaccines ( 1 - Tdap) 1978 Pneumococcal Vaccine: 50+ Years (1 of 2 - PCV) 1978 Zoster Vaccines (1 of 2) 2009 Mammogram Screening 11/30/2018 11/30/2016 RSV Immunization or 60+ Years (1 - Risk 60-74 years 1-dose series) 2019 Colorectal Cancer Screening Colonoscopy (10 Years) 03/20/2019 03/20/2009 Dexa Scan (General) 02/17/2024 COVID-19 Vaccine ( - 2024-2 6 season) 2024 Influenza Adult (#1) 2024 12/18/2014, 01/08/2013 Hepatitis A Vaccines Aged Out No long [...] Case Notes OC #3ADDED ON 12/27/2024 @ 1833HAVE [employer] MACHINE AVAILABLEWANTS 0730 POCT GLUCOSE - DOCKED [...] PM CDT COLONOSCOPY Routine 03/20/2009 12:00 AM [employer] from Last 3 Months or Most Recently Relevant to Health Maintenance Results * (ABNORMAL) BASIC METABOLIC PANEL (01/04/2025 4:40 AM CDT) Only the most recent of8 resultswithin the time period is included. SODIUM S/P/B 138 136 - 145 MMOL/L 01/04/2025 5:55 AM CDT [facility] POTASSIUM S/P/B 4.4 3.5 - 5.1 MMOL/L 01/04/2025 5:55 AM CDT [facility] Comment:MILD HEMOLYSIS, RESU LT MAY BE AFFECTED. CHLORIDE S/P/B 103 97 - 115 MMOL/L 01/04/2025 5:55 AM CDT [facility] CO2 30.9 21.0 - 32.0 MMOL/L 01/04/2025 5:55 AM CDT [facility] GLUCOSE 122(H) 74 - 106 MG/DL 01/04/2025 5:55 AM CDT [facility] BUN 11 7 - 18 MG/DL 01/04/2025 5:55 AM CDT [facility] CREATININE S/P/B 0.52(L) 0.55 - 1.02 MG/DL 01/04/2025 5:55 AM CDT [facility] CALCIUM S/P/B 8.5 8.5 - 10.1 MG/DL 01/04/2025 5:55 AM CDT [facility] ANION GAP 4.1 2.0 - 10.0 MMOL/L 01/04/2025 5:55 AM CDT [facility] OSMOLALITY (CALC) 287 MOSM/KG 025 5:55 AM CDT [facility] Comment:REFERENCE RANGE NOT ESTABLISHED GFR ESTIMATE >90 >90 ML/MIN/1. 73 M2 01/04/2025 5:55 AM CDT [facility] GFR NOTES GFR REFERENCE S: 01/04/2025 5:55 AM CDT [facility] Comment: THE ESTIMATED GFR IS CALCULATED [...] CDT Montez Molina MD LABORATORY Final Result [facility] [address] [place] [address], [id number] * (ABNORMAL) CBC W/DIFF AUTOMATED (01/04/2025 4:40 AM CDT) Only the most recent of9 resultswithin the time period is included. WBC 10.58 4.00 - 10.80 x10'3/uL 01/04/2025 5:06 AM CDT [facility] RBC 4.43 4.10 - 5.40 x10'6/uL 01/04/2025 5:06 AM CDT [facility] HGB 8.8(L) 12.0 - 16.0 G/DL 01/04/2025 5:06 AM CDT [facility] HCT 32.4(L) 36.0 - 47.0 % 01/04/2025 5:06 AM CDT [facility] MCV 73.1(L) 78.0 - 100.0 FL 01/04/2025 5:06 AM CDT [facility] MCH 19.9(L) 27.0 - 31.0 PG 01/04/2025 5:06 AM CDT [facility] MCHC 27.2(L) 33.0 - 36.0 G/DL 01/04/2025 5:06 AM CDT [facility] RDW 29.3(H) 11.5 - 14.5 % 01/04/2025 5:06 AM CDT [facility] PLT 544(H) 150 - 350 x10'3/uL 01/04/2025 5:06 AM CDT [facility] MPV 9.5 7.4 - 10.4 FL 01/04/2025 5:06 AM CDT [facility] DIFFERENTIAL TYPE AUTOMATED DIFFERENTIAL 01/04/2025 6:09 AM CDT [facility] SEG NEUTROPHILS 67.8 % 6:09 AM CDT [facility] LYMPHOCYTES 13.9 % 01/04/2025 6:09 AM CDT [facility] MONOCYTES 8.5 % 01/04/2025 6:09 AM CDT [facility] EOSINOPHILS 7.1 % 01/04/2025 6:09 AM CDT [facility] BASOPHILS 0.8 % 01/04/2025 6:09 AM CDT [facility] IMMATURE GRANS % 1.7 % 01/05/20 6:09 AM CDT [facility] ABS. NEUTROPHILS 7.20 1.60 - 8.30 x10'3/uL 01/04/2025 6:09 AM CDT [facility] ABS. LYMPHOCYTES 1.47 0.80 - 4.70 x10'3/uL 01/04/2025 6:09 AM CDT [facility] ABS. MONOCYTES 0.90 0.00 - 1.50 x10'3/uL 01/04/2025 6:09 AM CDT [facility] ABS. EOSINOPHILS 0.75(H) 0.00 - 0.40 x10'3/uL 01/04/2025 6:09 AM CDT [facility] ABS. BASOPHILS 0.08 0.00 - 0.20 x10'3/uL 01/04/2025 6:09 AM CDT [facility] ABS. IMMATURE GRANULOCYTES 0.18(H) 0.00 - 0.03 x10'3/uL 01/04/2025 6:09 AM CDT [facility] ABS. NUCLEATED RBC'S 0.02(H) 0.00 - 0.01 x10'3/uL 01/04/2025 6:09 AM CDT [facility] NRBC % 0.2 % 01/04/2025 6:09 AM CDT [facility] RBC MORPHOLOGY SLIDE REVIEWED 2024 6:09 AM CDT [facility] ANISO MARKED 01/04/2025 6:09 AM CDT [facility] POIKLO MODERATE 01/04/2025 6:09 AM CDT [facility] HYPOCHROMASIA MODERATE 01/04/2025 6:09 AM CDT [facility] MICRO MODERATE 01/04/2025 6:09 AM CDT [facility] POLY SLIGHT 01/04/2025 6:09 AM CDT [facility] OVALOCYTES PRESENT 01/04/2025 6:09 AM CDT [facility] TARGET CELLS PRESENT 01/04/2025 6:09 AM CDT [facility] ACANTHOCYTES PRESENT 01/04/2025 6:09 AM CDT [facility] STOMATOCYTE PRESENT 01/04/2025 6:09 AM CDT [facility] PLT EST. INCREASED 01/04/2025 6:09 AM CDT [facility] 01/04/2025 4:40 AM CDT us Montez Molina MD LABORATORY Final Result Performing Organization Address [facility] Co de Phone Number [facility] [address] [place] [address], [phone] * PHOSPHORUS, INORGANIC PHOSPHATE (01/04/2025 4:40 AM CDT) Only the most recent of8 resultswithin the time period is included. PHOSPHORUS 4.3 2.5 - 4.9 MG/DL 01/04/2025 5:55 AM CDT [facility] 01/04/2025 4:40 AM CDT us Montez Molina MD LABORATORY Final Result Performing Organization Address [facility] de Phone Number [facility] [address] [place] [address], [phone] * MAGNESIUM (01/04/2025 4:40 AM CDT) Only the most recent of8 resultswithin the time period is included. MAGNESIUM 1.9 1.6 - 2.6 MG/DL 01/04/2025 5:55 AM CDT [facility] Comment:RESULT QUESTIONABLE DUE TO HEMOLYSIS, RECOMMEND RECOLLECTION. 01/04/2025 4:40 AM CDT us Montez Molina MD LABORATORY Final Result Performing Organization Address [facility] Co de Phone Number [facility] [address] [place] [address], [phone] * (ABNORMAL) POCT glucose (01/03/2025 11:22 AM CDT) Only the most recent of26 resultswithin the time period is included. GLUCOSE POC 194(H) 70 - 109 01/03/2025 11:32 AM CDT [facility] 01/03/2025 11:2 2 AM CDT us Montez Molina MD POCT ORDERABLES - DEVICE Final Result [facility] [address] [place] [address], [id number] * ECG 12 lead (01/02/2025 10:50 PM CDT) Only the most recent of4 resultswithin the time period is included. 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1960 Requested By: SAIMA HAGER Order Number: [id number] Reading MD: Camila Pham Measurements Intervals [place] Rate: 72 P: 63 VA: 165 QRS: 24 QRSD: 95 T: 5 QT: 392 QTc: 432 Interpretive Statements SINUS RHYTHM POSSIBLE RIGHT VENTRICULAR CONDUCTION DELAY NONSPECIFIC ST & T-WAVE ABNORMALITY Procedure Note Camila Pham MD - 01/03/2025 [place] [address] Test Date: 2025-01-02 Pat Name: MAMI TAYLOR Department: 1 Room: 1122AA Gender: Female 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1960 Requested By: SAIMA HAGER Order Number: [id number] Reading MD: Camila Pham Measurements Intervals [place] Rate: 72 P: 63 VA: 165 QRS: 24 QRSD: 95 T: 5 QT: 392 QTc: 432 Interpretive Statements SINUS RHYTHM POSSIBLE RIGHT VENTRICULAR CONDUCTION DELAY NONSPECIFIC ST & T-WAVE ABNORMALITY us Saima Hager MD ECG ORDERABLES Final Result [facility] * CT ABD+PEL W CON [...] 1:36 PM Narrative 01/02/2025 1:56 PM CDT [address] [address] EXAMINATION: CT ABD+PEL W CON EXAM DATE: [...] Procedure Note Jim Blanco DO - 01/02/[address] [address] EXAMINATION: CT ABD+PEL W CON EXAM DATE: [...] By: Jim Blanco DO, 01/02/2025 1:36 PM us Montez Molina MD CT Final Result * TROPONIN, QUANT (01/01/2025 6:40 PM CDT) Only the most recent of3 resultswithin the time period is included. Pathologist [facility] TROPONIN I HIGH SENSITIVITY 21 0 - 53 ng/L 01/01/2025 7:17 PM CDT [facility] 01/01/2025 6:40 PM CDT us Montez Molina MD LABORATORY Final Result [facility] [address] [place] [address], [id number] * C AURIS,PCR,AXILLA/GROIN,NARES (01/01/2025 12:50 PM CDT) Pathologist [facility] KAMLA AURIS (CLARITA/GROIN) Not Detected Not Detected 01/04/2025 2:12 PM CDT [facility] Comment: A Not Detected result [...] analytical performance characteristics have been determined by [employer] [place], [place]. It has not been cleared or approved by the U.S. Food and Drug Administration. This assay has been validated pursuant to the CLIA regulations and is used for clinical purposes. Test Performed by [facility], [employer] [facility], [address] [place] [address] Mike Mitchell M.D., Ph.D., Director of Laboratories , CLIA [id number] 01/01/2025 12:5 0 PM CDT Montez Molina MD LABORATORY Final Result Performing Organization Address City[facility]/ZIP Co de Phone Number [facility] [address] , [place] [phone] * (ABNORMAL) HEMOGLOBIN AND HEMATOCRIT (12/30/2024 1:49 PM CDT) Pathologist [facility] HGB 7.9(L) 12.0 - 16.0 G/DL 12/30/2024 2:03 PM CDT [facility] HCT 28.0(L) 36.0 - 47.0 % 12/30/2024 2:03 PM CDT [facility] 12/30/2024 1:49 PM CDT Montez Molina MD LABORATORY Final Result [facility] [address] [place] [address], [place] [phone] * TRANSFUSE RED BLOOD CELLS (12/30/2024 11:22 AM CDT) Only the most recent of3 resultswithin the time period is included. us Niru Diaz DO NURSING TREATMENT ORDERABLE S - BLOOD ADMIN Final Result * (ABNORMAL) PRO-BRAIN NATRIURETIC PEPTIDE (12/30/2024 2:31 AM CDT) Pathologist [facility] PRO-B TYPE NATRIURETIC PEPTIDE 3,721(H) <125 PG/ML 12/30/2024 5:01 AM CDT [facility] Comment: AGE INDEPENDENT: <300 PG/ML HAS [...] FOR ACUTE CHF. 12/30/2024 2:31 AM CDT Saima Hager MD LABORATORY Final Result [facility] [address] [place] [address], [id number] * USE CleanFish (12/29/2024 12:25 PM CDT) Anatomical Region Laterality Modality Cardiac Echocardiogram 12/29/2024 9:54 AM CDT Narrative 12/29/2024 5:31 PM CDT Echocardiography Report Pat.Name: MAMI TAYLOR Pat.ID: [id number] .Date: 12/29/2024 Refer.MD: SAIMA HAGER Exam Time: 9:54:00 AM Study Type:ECHO WITH DOPPLER LIMITED Height: 67 in Weight: 170 lb BSA: 1.89 m2 Age: 11 1960,64Y Sex: F BP: 143/66 HR: 83 bpm Sonogrphr: Alicia Norwood [facility] Pat. Stat.:[facility] CPT - 4: 82576 [id number] [phone] Reason for Study:assess intracavitary gradient (LVOT), bubble [...] - 12/29/2024 Echocardiography Report Pat.Name: MAMI TAYLOR Pat.ID: [id number] .Date: 12/29/2024 Refer.MD: SAIMA HAGER Exam Time: 9:54:00 AM Study Type:ECHO WITH DOPPLER LIMITED Height: 67 in Weight: 170 lb BSA: 1.89 m2 Age: 11 1960,64Y Sex: F BP: 143/66 HR: 83 bpm Sonogrphr: Alicia Norwood [facility] Pat. Stat.:Inpatient Room: [facility] CPT - 4: 42526 [id number] Reason for Study:assess intracavitary gradient (LVOT), bubble [...] resultswithin the time period is included. PATHOLOGY [facility] Department of Laboratory Medicine [address] [place] [address] , extension [phone] Pathology Report Surgical Pathology Report Name: MAMI TAYLOR Specimen #: [id number] Age: 11 1960 (Age: 64) Location: [facility] Sex: F Procedure Date: 12/28/2024 Hospital #: [id number] Date Received: 12/30/2024 Date Reported: 12/31/2024 Provider: [...] Gross examination (when applicable) was performed at [facility], [address] [place] [address]. This case was interpreted and signed out at [facility], [address] [place] [address]. Electronically Signed Out GARCÍA GROVES MD [facility] TISSUE (OTHER (type in comments)) 12/28/2024 1:30 PM CDT us Niru Diaz DO PATHOLOGY/CYTOLOGY ORDERABL ES Final Result [facility] [address] [place] [address], [id number] * USE ECHOCARDIOGRAM W CON (12/27/2024 2:05 PM CDT) Anatomical Region Laterality Modality NA Echocardiogram 12/27/2024 1:35 PM CDT Narrative 12/27/2024 2:54 PM CDT Echocardiography Report Pat.Name: MAMI TAYLOR Rhea.ID: [id number] St.Date: 12/27/2024 Refer.MD: [id number] NONE PROVIDER EWDPROV EWDPROV Exam Time: 1:35:00 PM Study Type:ECHO WITH CARDIAC DOPPLER COMP Height: 67 in Weight: 170 lb BSA: 1.89 m2 Age: 11 1960,64Y Sex: F BP: 118/53 HR: 81 bpm Sonogrphr: HAKEEM Briggs Pat. Stat.:Inpatient Room: [facility] CPT - 4: 31461 Reason for Study:Evaluate for thrombus/vegetations Procedures: 2D, [...] Mass 2D Value 159 g LV Mass [id number] Value 84.1 g/m2 Med MA LV Peak [...] 2.8 cm Right Ventricle 2.3 cm Major [place] 8.3 cm MMODE TA Tricuspid Annul 2.09 cm <Electronic Signature> 12/27/2024 02:54 PM Gerri Mcneal M.D. Procedure Note Gerri Mcneal, DO - 12/27/2024 Echocardiography Report Pat.Name: MAMI TAYLOR Rhea.ID: [id number] .Date: 12/27/2024 Refer.: [id number] NONE PROVIDER EWDPROV EWDPROV Exam Time: 1:35:00 PM Study Type:ECHO WITH CARDIAC DOPPLER COMP Height: 67 in Weight: 170 lb BSA: 1.89 m2 Age: 11 1960,64Y Sex: F BP: 118/53 HR: 81 bpm Sonogrphr: HAKEEM Briggs Pat. Stat.:Inpatient Room: [facility] CPT - 4: 41987 Reason for Study:Evaluate for thrombus/vegetations Procedures: 2D, [...] Mass 2D Value 159 g LV Mass [id number] Value 84.1 g/m2 Med MA LV Peak [...] 2.8 cm Right Ventricle 2.3 cm Major [place] 8.3 cm MMODE TA Tricuspid Annul 2.09 cm <Electronic Signature> 12/27/2024 02:54 PM Gerri Mcneal M.D. us Niru Diaz ECHO Final Resul t * (ABNORMAL) POCT ACUTE ARTERIAL PANEL (12/27/2024 10:45 AM CDT) Only the most recent of2 resultswithin the time period is included. SODIUM WHOLE BLOOD 139 138 - 146 mmol/L 12/27/2024 10:51 AM CDT [facility] POTASSIUM WHOLE BLOOD 4.7 3.5 - 4.9 mmol/L 12/27/2024 10:51 AM CDT [facility] CA IONIZED WH BLOOD 1.12 1.12 - 1.32 mmol/L 12/27/2024 10:51 AM CDT [facility] POC PH ARTERIAL 7.285(L) 7.35 - 7.45 12/27/2024 10:51 AM CDT [facility] POC PCO2 ARTERIAL 39.8 35.0 - 45.0 MMHG 12/27/2024 10:51 AM CDT [facility] POC PO2 ARTERIAL 115(H) 80 - 105 MMHG 12/27/2024 10:51 AM CDT [facility] POC HCO3 ARTERIAL 18.9(L) 22 - 26 MMOL/L 12/27/2024 10:51 AM CDT [facility] POC TCO2 ARTERIAL 20(L) 23 - 27 MMOL/L 12/27/2024 10:51 AM CDT [facility] POC BASE DEFICIT ARTERIAL 8(H) 0 - 2 MMOL/L 12/27/2024 10:51 AM CDT [facility] POC HEMATOCRIT 29(L) 38 - 51 % 12/27/2024 10:51 AM CDT [facility] TIME TEST WAS PERFORMED: 1045 12/27/2024 10:51 AM CDT [facility] 12/27/2024 10:4 5 AM CDT us Chidi Gallagher MD POCT ORDERABLES - DEVICE Final Result [facility] [address] [place] [address], [id number] * XR CHEST PORTABLE (12/27/2024 10:36 AM CDT) Anatomical Region Laterality Modality Chest Radiographic Mary ging 12/27/2024 1:44 PM CDT Impressions 12/27/2024 1:46 PM CDT IMPRESSION: The gastric tube is in the stomach. Referred By: PROVIDER NONE Interpreted By: Ayush Real MD, 12/27/2024 1:44 PM Narrative 12/27/2024 1:46 PM CDT [address] [address] EXAM: XR CHEST PORTABLE DATE: 12/27/2024 1033 hours No comparison INDICATION: Gastric tube placement. TECHNIQUE: One view FINDINGS: Endotracheal tube is about 6 cm above the eunice. Gastric tube is in the stomach. Enlarged heart and central pulmonary vessels. Mild ill-defined lung densities. Procedure Note Ayush Real MD - 12/27/2024 [facility] [address], [place] [address] EXAM: XR CHEST PORTABLE DATE: 12/27/2024 1033 [...] - 2.0 MMOL/L 12/27/2024 10:52 AM CDT [facility] 12/27/2024 10:0 8 AM CDT Chidi Gallagher MD LABORATORY Final Result [facility] [address] [place] [address], [phone] * Art Line (12/27/2024 6:56 AM CDT) [...] (CHG imbedding tegaderm) us Nathan Chicas MD [place] AN[facility] Final Result * (ABNORMAL) LACTIC ACID W REFLEX (SEPSIS) (12/27/2024 5:54 AM CDT) Only the most recent of2 resultswithin the time period is included. LACTIC ACID VENOUS 3.1(H) 0.4 - 2.0 MMOL/L 12/27/2024 6:46 AM CDT [facility] 12/27/2024 5:54 AM CDT us Angel Gonzalez MD LABORATORY Final Resu lt [facility] [address] [place] [address], [phone] * TYPE & SCREEN (12/27/2024 5:54 AM CDT) UNITS ORDERED 4 12/30/2024 6:44 AM CDT [facility] ABO/RH O POSITIVE 12/27/2024 6:35 AM CDT [facility] ANTIBODY SCREEN NEGATIVE 6:35 AM CDT [facility] SAMPLE EXPIRATION 12/30/2024,2359 12/27/2024 5:58 AM CDT [facility] BLOOD UNIT NUMBER [id number] 12/27/2024 7:10 AM CDT [facility] PRODUCT: PC LEUKOPOOR 12/27/2024 7:10 AM CDT [facility] UNIT DIVISION 00 12/27/2024 7:10 AM CDT [facility] BLOOD UNIT STATUS TRANSFUSED,FINAL 12/28/2024 1:49 AM CDT [facility] ISSUE DATE/TIME [id number] 025 1:49 AM CDT [facility] PRODUCT CODE [id number] 12/28/2024 1:49 AM CDT [facility] ABO/RH Unit O POS 12/28/2024 1:49 AM CDT [facility] ABO/RH UNIT ISBT CODE 5100 12/28/2024 1:49 AM CDT [facility] BLOOD UNIT EXPIRATION DATE [id number] 12/28/2024 1:49 AM CDT [facility] TRANSFUSION STATUS OK TO TRANSFUSE 12/27/2024 7:10 AM CDT [facility] CROSSMATCH COMPATIBLE-EXM 12/27/2024 7:10 AM CDT [facility] BLOOD UNIT NUMBER [id number] 12/27/2024 7:10 AM CDT [facility] PRODUCT: PC LEUKOPOOR 12/27/2024 7:10 AM CDT [facility] UNIT DIVISION 00 12/27/2024 7:10 AM CDT [facility] BLOOD UNIT STATUS TRANSFUSED,FINAL 12/28/2024 1:49 AM CDT [facility] ISSUE DATE/TIME [id number] 1:49 AM CDT [facility] PRODUCT CODE [id number] 12/28/2024 1:49 AM CDT [facility] ABO/RH Unit O POS 12/28/2024 1:49 AM CDT [facility] ABO/RH UNIT ISBT CODE 5100 12/28/2024 1:49 AM CDT [facility] BLOOD UNIT EXPIRATION DATE [id number] 12/28/2024 1:49 AM CDT [facility] TRANSFUSION STATUS OK TO TRANSFUSE 12/27/2024 7:10 AM CDT [facility] CROSSMATCH COMPATIBLE-EXM 12/27/2024 7:10 AM CDT [facility] BLOOD UNIT NUMBER [id number] 12/30/2024 8:35 AM CDT [facility] PRODUCT: PC LEUKOPOOR 12/30/2024 8:35 AM CDT [facility] UNIT DIVISION 00 12/30/2024 8:35 AM CDT [facility] BLOOD UNIT STATUS TRANSFUSED,FINAL 12/31/2024 1:09 AM CDT [facility] ISSUE DATE/TIME [id number] 025 1:09 AM CDT [facility] PRODUCT CODE [id number] 12/31/2024 1:09 AM CDT [facility] ABO/RH Unit O POS 12/31/2024 1:09 AM CDT [facility] ABO/RH UNIT ISBT CODE 5100 12/31/2024 1:09 AM CDT [facility] BLOOD UNIT EXPIRATION DATE [id number] 12/31/2024 1:09 AM CDT [facility] TRANSFUSION STATUS OK TO TRANSFUSE 12/30/2024 8:35 AM CDT [facility] CROSSMATCH COMPATIBLE-EXM 12/30/2024 8:35 AM CDT [facility] 12/27/2024 5:54 AM CDT Angel Gonzalez MD BLOOD BANK TEST ORDERABLES Final Result Performing Organization Address [facility] de Phone Number [facility] [address] [place] [address], [phone] * (ABNORMAL) PROTIME/INR, VENOUS (PROTHROMBIN TIME) (12/27/2024 5:54 AM CDT) PROTIME 15.0(H) 9.4 - 12.5 SEC 12/27/2024 6:37 AM CDT [facility] INR 1.3(H) 0.8 - 1.1 12/27/2024 6:37 AM CDT [facility] 12/27/2024 5:54 AM CDT Niru Diaz DO LABORATORY Final Resul t Performing Organization Address [facility] Co de Phone Number [facility] [address] [place] [address], [phone] * CULTURE, BACTERIA BLOOD X2 (12/27/2024 5:53 AM CDT) SPEC DESCRIPTION BLOOD 12/27/2024 5:35 AM CDT [facility] SPECIAL REQUESTS NO SPECIAL REQUEST 12/27/2024 5:35 AM CDT [facility] CULTURE RESULT NO GROWTH 5 DAYS 01/01/2025 6:02 AM CDT [facility] BLOOD SPECIMEN OBTAINED FOR BLOOD CULTURE / Unknown 12/27/2024 5:53 AM CDT 12/27/2024 5:54 AM CDT us Niru Diaz DO MICROBIOLOGY - GENERAL ORDE KAI Final Result [facility] [address] [place] [address], [phone] * (ABNORMAL) URINE DRUG SCREEN (TOXICOLOGY) (12/27/2024 5:42 AM CDT) Pathologist [facility] PHENCYCLIDINE PCP (U) NEGATIVE NEGATIVE 12/27/2024 7:06 AM CDT [facility] BENZODIAZEPINES SCREEN (U) NEGATIVE NEGATIVE 12/27/2024 7:06 AM CDT [facility] COCAINE METABOLITES (U) NEGATIVE NEGATIVE 12/27/2024 7:06 AM CDT [facility] AMPHETAMINE (U) POSITIVE SCREEN RESULT, IF CONFIRMATION DESIRED PLEASE CONTACT LAB WITHIN ONE WEEK. (A) NEGATIVE 12/27/2024 7:06 AM CDT [facility] CANNABINOIDS SCREEN (U) NEGATIVE NEGATIVE 12/27/2024 7:06 AM CDT [facility] OPIATE SCREEN (U) POSITIVE SCREEN RESULT, IF CONFIRMATION DESIRED PLEASE CONTACT LAB WITHIN ONE WEEK. (A) NEGATIVE 12/27/2024 7:06 AM CDT [facility] BARBITURATES SCREEN (U) NEGATIVE NEGATIVE 12/27/2024 7:06 AM CDT [facility] URINE TOX COMMENT Unconfirmed screening results are to be used only for medical purposes. 12/27/2024 5:54 AM CDT [facility] CUTOFF CONCENTRATION (U) Cut-off Concentration for a positive result 12/27/2024 5:54 AM CDT [facility] Comment: Phencyclidine 25 ng/mL Benzodiazepines 200 ng/mL Cocaine 300 ng/mL Amphetamine 1000 ng/mL Cannabinoids 50 ng/mL Opiates 300 ng/mL Barbiturates 200 ng/mL URINE SPECIMEN / Unknown 12/27/2024 5:42 AM CDT us Niru Diaz DO URINE ORDERABLES Final Resu lt [facility] [address] [place] [address], [place] [phone] * (ABNORMAL) URINALYSIS (12/27/2024 5:42 AM CDT) COLOR (U) YELLOW 12/27/2024 7:01 AM CDT [facility] TRANSPARENCY CLEAR 12/27/2024 7:01 AM CDT [facility] SPECIFIC GRAVITY (U) 1.020 1.002 - 1.035 12/27/2024 7:01 AM CDT [facility] U PH 5.0 5 - 8 12/27/2024 7:01 AM T [facility] PROTEIN RANDOM (U) 20(A) NEGATIVE 12/27/2024 7:01 AM CDT [facility] GLUCOSE (U) NEGATIVE NEGATIVE MG/DL 12/27/2024 7:01 AM CDT [facility] KETONES MG/DL (U) NEGATIVE NEGATIVE 12/27/2024 7:01 AM CDT [facility] BILIRUBIN (U) NEGATIVE NEGATIVE 12/27/2024 7:01 AM CDT [facility] BLOOD (U) NEGATIVE NEGATIVE 12/27/2024 7:01 AM T [facility] NITRITES NEGATIVE NEGATIVE 12/27/2024 7:01 AM CDT [facility] UROBILINOGEN NORMAL 0 - 1 EU/DL 12/27/2024 7:01 AM CDT [facility] LEUKOCYTES (U) NEGATIVE NEGATIVE 12/27/2024 7:01 AM CDT [facility] RBC/HPF <1 0 - 3 /HPF 12/27/2024 7:01 AM CDT [facility] WBC/HPF 2 0 - 6 /HPF 12/27/2024 7:01 AM CDT [facility] BACTERIA (U) PRESENT /HPF 12/27/2024 7:01 AM CDT [facility] SQUAMOUS EPITHELIALS 2 12/27/2024 7:01 AM CDT [facility] AMORPHOUS SEDIMENT PRESENT 12/27/2024 7:01 AM CDT [facility] URINE SPECIMEN OBTAINED BY CLEAN CATCH PROCEDURE / Unknown 12/27/2024 5:42 AM CDT us Angel Gonzalez MD URINE ORDERABLES Final Res ult [facility] [address] [place] [address], [phone] * (ABNORMAL) COMPREHENSIVE METABOLIC PANEL (12/27/2024 4:10 AM CDT) SODIUM S/P/B 138 136 - 145 MMOL/L 12/27/2024 5:04 AM CDT [facility] POTASSIUM S/P/B 4.6 3.5 - 5.1 MMOL/L 12/27/2024 5:04 AM CDT [facility] CHLORIDE S/P/B 109 97 - 115 MMOL/L 12/27/2024 5:04 AM CDT [facility] CO2 19.2(L) 21.0 - 32.0 MMOL/L 12/27/2024 5:04 AM [facility] GLUCOSE 160(H) 74 - 106 MG/DL 12/27/2024 5:04 AM [facility] BUN 54(H) 7 - 18 MG/DL 12/27/2024 5:04 AM [facility] CREATININE S/P/B 2.16(H) 0.55 - 1.02 MG/DL 12/27/2024 5:04 AM [facility] CALCIUM S/P/B 8.1(L) 8.5 - 10.1 MG/DL 12/27/2024 5:04 AM [facility] BILIRUBIN TOTAL S/P/B 0.3 0.2 - 1.0 MG/DL 12/27/2024 5:04 AM [facility] ALKALINE PHOSPHATASE S/P/B 187(H) 50 - 130 U/L 12/27/2024 5:04 AM [facility] AST 30 15 - 37 U/L 12/27/2024 5:04 AM [facility] ALT 22 13 - 56 U/L 12/27/2024 5:04 AM [facility] TOTAL PROTEIN S/P/B 6.5 6.4 - 8.2 G/DL 12/27/2024 5:04 AM [facility] ALBUMIN S/P/B 2.9(L) 3.4 - 5.0 G/DL 12/27/2024 5:04 AM [facility] ANION GAP 9.8 2.0 - 10.0 MMOL/L 12/27/2024 5:04 AM [facility] OSMOLALITY (CALC) 304 MOSM/KG 025 5:04 AM [facility] Comment:REFERENCE RANGE NOT ESTABLISHED GFR ESTIMATE 25(L) >90 ML/MIN/1. 73 M2 12/27/2024 5:04 AM [facility] GFR NOTES GFR REFERENCE S: 12/27/2024 5:04 AM CDT [facility] Comment: THE ESTIMATED GFR IS CALCULATED [...] <15 ml/min/1.73 m2 12/27/2024 4:10 AM CDT us Angel Gonzalez MD LABORATORY Final Resu lt [facility] [address] [place] [address], [phone] * MAMMOGRAM GENERIC (11/30/2016 4:32 PM CDT) Anatomical Region Laterality Modality Other 11/30/2016 4:32 PM CDT 11/30/2016 4:32 PM CDT Narrative 11/30/2016 4:41 PM CDT [facility] ADMIT/SERVICE DATE: 11/18/16 ACCT: [id number] DISCHARGE DATE: : 1960 SEX: F ORD SITE: [facility] PT TYPE: REG CLI ORDERING MD: SHAN DUNBAR MD STUDY DATE REPORT # ORDER # EXT ORDER ID [id number]; ; [id number]; [id number]; [id number] PROC CODE: AXILNVRT PROCEDURE DESCRIPTION: US AXILLA [...] IF CLINICALLY INDICATED. EXAMINATION: BILATERAL SCREENING MAMMOGRAM [id number], [id number] COMPARISON: OUTSIDE STUDY 07/29/2011. TISSUE DENSITY: THE [...] EXAMINATION: BILATERAL DIAGNOSTIC MAMMOGRAM WITH BILATERAL ULTRASOUND. [id number], [id number] CLINICAL HISTORY: BILATERAL AXILLARY PAIN COMPARISON: NONE [...] - 01/11/2018 [facility] ADMIT/SERVICE DATE:11/18/16 ACCT: [id number] DISCHARGE DATE: : 1960 SEX: F ORD SITE: [facility] PT TYPE: REG CLI ORDERING MD:SHAN DUNBAR MD STUDY DATE REPORT # ORDER # EXT ORDER ID 11/18/16 [id number]; [id number]; [id number]; [id number]; [id number] PROC CODE: AXILNVRT PROCEDURE DESCRIPTION: US AXILLA [...] IF CLINICALLY INDICATED. EXAMINATION: BILATERAL SCREENING MAMMOGRAM [id number], [id number] COMPARISON: OUTSIDE STUDY 07/29/2011. TISSUE DENSITY: THE [...] EXAMINATION: BILATERAL DIAGNOSTIC MAMMOGRAM WITH BILATERAL ULTRASOUND. [id number], [id number] CLINICAL HISTORY: BILATERAL AXILLARY PAIN COMPARISON: NONE [...] BY: SHAN VORA11/18/2016 4:42 PM us Shan Dnubar DO SCANNING Final Resul t * Colonoscopy (03/20/2009 12:00 AM [employer]) 03/20/2009 03/20/2009 Narrative [facility] TO EPIC CONVERSION - 03/20/2009 12:00 AM [employer] Documented hx of procedure Procedure Note , Generic Conversion, - 01/21/2018 Documented hx of procedure us Generic Conversion Md [facility] PROCEDURE ORDERABLES Final Result [facility] TO EPIC CONVERSION from Last 3 Months or Most Recently Relevant to Health Maintenance Insurance [facility] Advance Directives * Full Code (Latest Code Status on File) Date Activated Date Inactivated Comments 01/13/2025 9:52 AM * Full Code Date Activated Date Inactivated Comments 01/12/2025 9:43 PM 01/13/2025 9:36 AM * Full Code Date Activated Date Inactivated Comments 12/27/2024 6:46 AM 01/05/2025 5:52 PM * Full Code Date Activated Date Inactivated Comments 12/27/2024 3:44 AM 12/27/2024 6:45 AM Care Teams Clinical Nurse Specialist Relationship Specialty Start Date End Date Sumit Caballero MD [address] [place] [address] PCP - General INTERNAL MEDICINE 11/30/18
--- OUTSIDE RECORDS SUMMARY | 2025-01-13 22:05 | XMS_ITS | Clinical Summary ---
Author Organization [facility] Address [address] [address] [facility] [address] [place] [address] Care Team Providers Care Product Development Worker Name Role Phone No, Physician Primary Care Provider [phone] Saroj Solano MD Unavailable Allergies Active Allergy Reactions Criticality Noted Date [...] Other Medical Brain surg. 200 0.; Comments: [facility] 05/06/2014 - Cancer (HCC) Family History Medical [...] on file Legal Sex Female 1:[address] Gender Identity Not on file Sexual Orientation Not on file Obstetrics History Last Filed Vital Signs Vital Sign Reading Time Taken Comments Blood Pressure 181/96 05/24/2019 11:[address] HELPER Pulse 92 05/24/2019 11:[address] HELPER Temperature - - Respiratory Rate - - Oxygen Saturation - - Inhaled Oxygen Concentration - - Weight 78 kg (172 lb) 05/24/2019 11:[address] HELPER Height 171.5 cm (5' 7.5) 05/24/2019 11:30 AM CS T Body Mass Index 26.54 05/24/2019 11:[address] HELPER Plan of Treatment Not on file Insurance [facility] CHOICE [employer]US [facility] HMO/PPO Address: [place] [address] Care Teams Product Development Worker Relationship Specialty Start Date End Date No, Physician PCP - General 04/18/19 Saroj Solano MD Family Medicine 04/18/19
--- OUTSIDE RECORDS SUMMARY | 2025-01-13 22:05 | XMS_ITS | Encounter Summary ---
Author Organization [facility] Address [address] [place] [address] Care Team Providers Care Equity Research Analyst Name Role Phone Sumit Caballero MD Primary Care Provider [phone] Reason for Visit * Auth/Cert (Routine) Specialty Diagnoses / Procedures Referred By Brett pleitez Referred To Contact Home Health Services Referral ID Status Reason Start Date Expiration Date Visits Re quested Visits Authorized [id number] 1 1 Encounter Details Date Type Department Care Team (Late st Contact Info) Description 01/12/2025 Home Care Visit [facility] Home Care [facility] [address] [place] [address] Sarika Abel, RN CASE COMMUNICATION Social History Tobacco Use Types Packs/Day Years Used Date Smoking Tobacco: Every Day Cigarettes Smokeless Tobacco: Current OASIS D0700: Social Isolation Answer Da te [...] materials from doctor or pharmacy Never 01/11/2025 [facility] Utilities Answer Date Recorded In the past 12 months has th e electric, gas, oil, or water company [...] any time in the past 12 m [facility], were you homeless or living in a [place] health care facility (including now)? No 12/27/2024 Comments No Sex [...] Caballero RN Active * Do you have difficulty dressing or bathing? Answer Date of Assessment Author Status No 12/27/2024 3:34 AM MARTHAT Jonathan Caballero RN Active * Because of a physical, mental, or emotional condition, do you have difficulty doing errands alone such as visiting a doctor's office or shopping? Answer Date of Assessment Author Status No 12/27/2024 3:34 AM Jonathan Shaw RN Active documented as of this encounter Mental Status * Because of a physical, mental, or emotional condition, do you have serious difficulty concentrating, remembering, or making decisions? Answer Entry Date Author Status No 12/27/2024 3:34 AM Jonathan Shaw RN Active documented in this encounter Plan of Treatment Upcoming Encounters Date Type Department Care Team (Late st Contact Info) Description 01/14/2025 11:00 AM CDT Appointment [facility] [address] [place] [address] Kristine Barreto, PT [address] [place] [address] 01/14/2025 1:00 PM CDT Appointment [facility] [address] [place] [address] Vicky Juarez LPN 01/14/2025 1:00 PM CDT Appointment [facility] [address] [place] [address] Sarika Villeda WOC RN 01/16/2025 9:30 AM CDT Appointment [facility] Care [facility] [address] [place] [address] Otilia Phelps, OT [address] [place] [address] 01/17/2025 10:15 AM CDT Appointment [facility] [address] [place] [address] Alexus Arreaga, RN 01/21/2025 1:00 PM INTERNAL COMMUNICATIONS INTERN Appointment [facility] [address] [place] [address] Alexus Arreaga, RN 01/24/2025 12:00 PM INTERNAL COMMUNICATIONS INTERN Appointment [facility] [address] [place] [address] Alexus Arreaga, RN 01/28/2025 12:00 PM INTERNAL COMMUNICATIONS INTERN Appointment [facility] [address] [place] [address] Alexus Arreaga, RN 02/04/2025 12:00 PM INTERNAL COMMUNICATIONS INTERN Appointment [facility] [place] [address] [place] [address] Alexus Arreaga, RN 02/11/2025 11:30 AM INTERNAL COMMUNICATIONS INTERN Appointment [facility] Care [facility] [address] [place] [address] Alexus Arreaga, RN 02/18/2025 9:00 AM INTERNAL COMMUNICATIONS INTERN Appointment [facility] Care [facility] [address] [place] [address] Alexus Arreaga, RN 02/25/2025 8:00 AM INTERNAL COMMUNICATIONS INTERN Appointment [place] [address] [place] [address] Alexus Arreaga, RN 03/04/2025 8:00 AM INTERNAL COMMUNICATIONS INTERN Appointment [facility] [address] [place] [address] Alexus Arreaga, RN 03/11/2025 8:00 AM INTERNAL COMMUNICATIONS INTERN Appointment [facility] Care [facility] [address] [place] [address] Alexus Arreaga, RN documented as of this encounter Visit Diagnoses Not on filedocumented in this encounter Care Teams Equity Research Analyst Relationship Specialty Start Date End Date Sumit Caballero MD [address] [place] [address] PCP - General INTERNAL MEDICINE 11/30/18 documented as of this encounter
--- NOTE | 2025-01-13 22:08 | ECG_ITS ---
Test Date: 2025-01-13 22:10:32 Measurements Intervals [employer] Rate: 80 P: 46 DC: 161 QRS: -7 QRSD: 93 T: 50 QT: 372 QTc: 430 Interpretive Statements SINUS RHYTHM POSSIBLE RIGHT VENTRICULAR CONDUCTION DELAY LEFT VENTRICULAR HYPERTROPHY AND ST-T CHANGE BORDERLINE ST ABNORMALITY- INF/LAT LEADS BORDERLINE ECG Compared to ECG 01/08/2025 01:47:05 NO SIGNIFICANT CHANGE Electronically Signed On 01-14-2025 06:17:43 CDT by Og Tavarez D.O.
[2025-01-13 22:16] VITALS: BP 106/63; PULSE 84; RESP 20; TEMP 36.8; O2SAT 97
--- NOTE | 2025-01-13 22:16 | ED_ITS ---
HPI - Chest Pain General Chief Complaint: Wound/Laceration Stated Complaint: chest pain Time Seen by Provider: 01/13/25 22:15 Source: patient and family Mode of arrival: ambulatory Limitations: no limitations History of Present Illness HPI narrative: Patient is a 64-year-old female with colostomy having pain in her abdomen again at this time. She has recently been here for similar symptoms. She had a colitis last visit. She has not been back our call this surgeon for follow-up. She has difficulty working on her colostomy bag when she changes them at this time. Patient seems to come to the ER for pain control more so than anything but I have told her that we cannot do that on a regular occasion and she must have a workup if there is a concern. We will proceed with a workup at this time and pain management. We will need to talk to her surgeons about further treatment options of her chronic pain in the abdomen. Initially she said it was chest pain however it was more abdominal pain where she puts her hands about the pain syndrome tonight. I sent her to another hospital a couple weeks ago for a dissection aneurysm and they are watching it at this time and not repaired. MD complaint: other (Generalized abdominal pain upper abdomen) Pertinent past history: known aortic aneurysm and other (Hypertension) Onset (ago): week(s) Timing of current episode: constant and still present Prior episodes: Yes Onset: during rest, during exertion, after eating and awoke with symptoms Pain location: epigastric Pain radiation: other (Generalized abdomen and specifically near the colostomy) Severity: moderate Pain scale (0-10): 7 Quality: tightness, heaviness and sharp Relieving factors: nothing Exacerbating factors: exertion, inspiration, eating, supine, palpation and movement Context: other (Colostomy placed at [facility] in the past month) Treatment prior to arrival: other (Recent antibiotics) Risk Factors Coronary artery disease risk factors: none Thoracic aortic dissection risk factors: none Related Data Home Medications ?Medication ?Instructions ?Recorded ?Confirmed ?Last Taken ?Type lisinopril 20 mg tablet 10 mg PO HS 11/03/19 5 Unknown History celecoxib 100 mg capsule mg PO DAILY 01/13/25 5 Unknown History metoprolol tartrate 25 mg tablet mg PO DAILY 01/13/25 01/13/25 Unknown History Allergies Allergy/AdvReac Type Severity Reaction Status Date / Time Penicillins Allergy Intermediate Hives Verified 01/13/25 15:48 trimethobenzamide (Tigan) Allergy Intermediate Vomiting Verified 01/13/25 15:48 varenicline (Chantix) Allergy Intermediate Vomiting Verified 01/13/25 15:48 NSAIDS (Non-Steroidal Allergy Mild abdominal Verified 01/13/25 15:48 Anti-Inflamma pain PENICILLIN Allergy Hives Uncoded 01/13/25 15:48 TRIMETHOBENZAMIDE HCL Allergy Unknown Uncoded 01/13/25 15:48 Review of Systems 2 Review of Systems: All systems reviewed & are unremarkable except as noted in HPI and below Constitutional: Constitutional: Reports no additional constitutional complaints Eyes: Eyes: Reports no additional eye complaints ENT: Reports system reviewed and no additional complaints, except as documented Cardiovascular: Cardiovascular: Reports no additional cardiovascular complaints Respiratory: Respiratory: Reports no additional respiratory complaints Gastrointestinal: Gastrointestinal: Reports no additional gastrointestinal complaints Genitourinary: Genitourinary: Reports no additional female genitourinary complaints Musculoskeletal: Musculoskeletal: Reports no additional musculoskeletal complaints Integumentary/Breasts: Skin/Breast: Reports system reviewed and no additional complaints, except as docu Neurologic: Reports system reviewed and no additional complaints, except as documented Psychiatric: Psychiatric: Reports no additional psychiatric complaints Endocrine: Endocrine: Reports no additional endocrine complaints Hematologic/Lymphatic: Hematologic/Lymphatic: Reports no additional hematologic/lymphatic complaints Allergic/Immunologic: Allergic/Immunologic: Reports no additional allergic/immunologic complaints PMFSH Past Medical History Medical History Emphysema lung Hyperlipidemia Hypertension Family History Family History Father Family history of type 2 diabetes mellitus Hypertension Mother Hypertension Sibling No problems noted. Social History Social History Smoking status: Current every day smoker Tobacco type: cigarettes Second hand tobacco smoke exposure: No Alcohol intake: never Substance use: never Do You Feel Safe in your Home?: Yes Lack of Transportation: No Lack of Food: Never True Current Housing: I Have Housing Concerned About Future Housing: No Difficulty Paying Gas/Electric Bills: No Difficulty Paying for Meds: No Currently Unemployed: No Difficulty w/ Childcare or Family Care: No Living arrangements: with family Gender identity (if verbalized by the patient): Female Sexual Orientation (if Verbalized by the Patient): Straight or Heterosexual Spiritual care concerns: No Agree to blood products: Yes Exam 2 Const: General: healthy appearing Nutritional Appearance: well nourished Orientation/consciousness: patient oriented x3 HENMT: Head: normal to inspection Ears: external ears normal F carmen/Nose/Sinus: Normal external nose present Eyes: Conjunctivae: conjunctivae normal Pupils: Equal, round and reactive pupils present EOM: EOMs intact bilaterally Neck: Neck: normal visual inspection Resp: Effort & Inspection: normal respiratory effort and not labored A uscultation: clear to auscultation bilaterally and no crackles Cardio: Rate: regular rate Rhythm: regular rhythm Heart sounds: no murmurs GI: Inspection: non-distended GI Palp: Yes Soft to palpation and No Tenderness to palpation present (GI) Auscultation: normal bowel sounds O ther: Tender abdomen diffusely and specifically around the site of the colostomy and surgical incisions with early stages of infection seen of cellulitis this time with pus : General: Yes bladder normal to palpation Back/Spine/Pelvis: Back: no CVA tenderness Skin: General skin exam: normal color Rashes: no rashes Wounds: no wounds Neuro: General: patient oriented x3, moves all extremities and no meningeal signs Extrem: General: normal to inspection, no clubbing, cyanosis or edema and no pedal edema Psych: Mental Status: mental status grossly normal Affect: normal affect Attitude: cooperative Course Vital Signs Vital signs: Vital Signs Temperature 36.8 C 01/13/25 22:04 Pulse Rate 84 01/13/25 22:04 Respiratory Rate 18 01/13/25 22:04 Blood Pressure 106/63 01/13/25 22:04 Pulse Oximetry 96 01/13/25 22:04 Oxygen Delivery Room Air 01/13/25 22:04 Temperature 36.7 C 01/14/25 00:50 Pulse Rate 88 01/14/25 00:50 Respiratory Rate 18 01/14/25 00:50 Blood Pressure 137/55 L 01/14/25 00:50 Pulse Oximetry 96 01/14/25 00:50 Oxygen Delivery Room Air 01/14/25 00:50 MDM - Chest Pain MDM Narrative Medical decision making narrative: Patient is a 64-year-old female with colostomy recently placed having trouble with that area as well as the incision site causing her pain. Workup tonight for abdominal pain showed wall thickening and inflammatory changes of the loop of click ostomy being infectious versus inflammatory. Patient would like to leave AMA and discussed with her family and come back for further planning. We explained that she will need to be started on IV antibiotics right away and transferred for her surgeons to be seeing her at this time. She said she will sign the AMA and come back like she did last time. This is her 2nd AMA now. Patient is AAO x4 and she has the decision making capacity to decide that she would like to go home at this time. Risks and benefits were discussed. Benefits of staying to get IV antibiotics and transfer were discussed. Hospitalization was discussed. and mortality reviewed and discussed. Morbidity discussed and reviewed. Lab Data Attestation: I reviewed the patient's lab results. 01/14/25 00:04 01/14/25 00:04 Labs: Lab Results 01/14/25 Range/Units 00:04 WBC 14.1 H (4.8-10.8) K/mm3 RBC 4.33 (4.20-5.40) M/mm3 Hgb 9.3 L (11.7-13.8) g/dL Hct 33.2 L (35.0-42.0) % MCV 76.7 L (78.0-102.0) fL MCH 21.5 L (27.0-31.0) pg MCHC 28.0 L (32-36) g/dL RDW 31.5 H (11.6-14.4) % Plt Count 888 H (150-420) K/mm3 MPV 8.3 L (9.2-11.8) fl Immature Gran % (Auto) 0.7 H (0.0-0.0) % Neut % (Auto) 72.2 H (50.0-70.0) % Lymph % (Auto) 15.2 L (18.0-42.0) % [place] % (Auto) 6.0 (2.0-11.0) % Eos % (Auto) 4.8 (1.0-6.0) % Baso % (Auto) 1.1 H (0.0-1.0) % Lymph # (Auto) 2.15 (1.10-4.50) K/mm3 [place] # (Auto) 0.85 (0.10-0.90) K/mm3 Eos # (Auto) 0.67 H (0.02-0.50) K/mm3 Baso # (Auto) 0.15 H (0.00-0.10) K/mm3 Abs Immat Gran (auto) 0.10 H (0.00-0.00) K/mm3 Absolute Neuts (auto) 10.18 H (1.70-7.20) K/mm3 Absolute Nucleated RBC 0.00 (0.00-0.00) K/mm3 Nucleated RBC % 0.0 (0-0.0) % % Immature Plt Fraction 0.5 L (1.0-7.0) % Sodium 140 (137-145) mmol/L Potassium 4.0 (3.4-5.0) mmol/L Chloride 102 (98-107) mmol/L Carbon Dioxide 28 (22-30) mmol/L Anion Gap 10 (4-12) mmol/L BUN 20 H (7-17) mg/dL Creatinine 0.94 (0.7-1.0) mg/dL Estim Creat Clear Calc 51 ml/min Estimated GFR 60 (59 - ) Glucose 119 H (65-110) mg/dL Calculated Osmolality 293 (285-295) mOsm/kg Lactic Acid 1.1 (0.4-2.0) mmol/L Calcium 9.0 (8.4-10.2) mg/dL Total Bilirubin 0.4 (0.2-1.3) mg/dL AST 24 (14-36) U/L ALT 15 (6-35) U/L Alkaline Phosphatase 127 H (38-126) U/L Troponin I 0.020 (0.000-0.034) ng/mL Total Protein 7.8 (6.3-8.2) g/dL Albumin 3.9 (3.5-5.1) g/dL Procalcitonin 0.1 ng/mL Imaging Data Attestation: I personally reviewed and interpreted this imaging study as follows: Radiologist's impression: CT scan of the abdomen and pelvis shows hemicolectomy on the left, right lobe atelectasis and subtle wall thickening and inflammatory changes involving a loop of colostomy which is infectious versus inflammatory and this is new compared to prior CT scans ECG Data EKG #1: Attestation: I personally reviewed and interpreted this ECG as follows: ECG completion date: 01/13/25 ECG completion time: 23:59 Prior ECG tracings: available for review Interpretation: Comparison with old EKG is no acute disease EKG Interpretation: normal rate, sinus rhythm, no ectopy, non-specific ST changes, normal QRS, normal QT and left axis Discharge Plan Discharge Clinical Impression: Colostomy dysfunction, Incisional infection Patient Disposition: Left Against Medical Advice Condition: Stable Patient Language: Monegasque Prescriptions: No Action levofloxacin 500 mg tablet 500 mg PO DAILY Qty: 7 0RF oxycodone-acetaminophen [Percocet] 5-325 mg tablet 1 tablet PO Q6H PRN (Reason: pain) Qty: 20 0RF lisinopril 20 mg tablet 10 mg PO HS celecoxib 100 mg capsule PO DAILY metoprolol tartrate 25 mg tablet PO DAILY mupirocin [Centany] 2 % ointment 1 applic topical BID Qty: 22 0RF Follow-up/Referrals: Sarika Dewey NP [Primary Care Provider, [facility]] Time of Disposition: 01:12
--- NOTE | 2025-01-13 23:20 | PC.NURSE ---
ERP at pt bedside at this time. RN awaiting further orders.
--- NOTE | 2025-01-13 23:46 | PC.NURSE ---
pt to CT scan via wheelchair per radio news anchor. awake and alert NAD.
--- NOTE | 2025-01-13 23:58 | PC.NURSE ---
distributor publications at bedside for blood draw at this time and pt medicated per order, see MAR. spouse at bedside. call light within reach.
[2025-01-13] MEDS: MORPHINE SULFATE (*CRX) 4 MG/ML INJ IM (23:59)
[2025-01-14 00:11] LABS: Hematocrit 33.2 % (35.0-42.0); Hemoglobin 9.3 g/dL (11.7-13.8); Immature Granulocyte Percent A 0.7 % (0.0-0.0); Immature Platelet Fraction Pct 0.5 % (1.0-7.0); Lymphocytes Absolute Auto 2.15 K/mm3 (1.10-4.50); Mean Corpuscular HGB Conc 28.0 g/dL (32-36); Mean Corpuscular Hemoglobin 21.5 pg (27.0-31.0); Mean Corpuscular Volume 76.7 fL (78.0-102.0); Nucleated Red Blood Cells Absolute Auto 0.00 K/mm3 (0.00-0.00); Nucleated Red Blood Cells Perc 0.0 % (0-0.0); Platelet Count Result 888 K/mm3 (150-420); Red Blood Count 4.33 M/mm3 (4.20-5.40); White Blood Count 14.1 K/mm3 (4.8-10.8)
[2025-01-14 00:21] LABS: Alanine Aminotransferase 15 U/L (6-35); Albumin Level 3.9 g/dL (3.5-5.1); Alkaline Phosphatase 127 U/L (38-126); Anion Gap 10 mmol/L (4-12); Aspartate Amino Transferase 24 U/L (14-36); Bilirubin,Total 0.4 mg/dL (0.2-1.3); Blood Urea Nitrogen 20 mg/dL (7-17); Calcium 9.0 mg/dL (8.4-10.2); Carbon Dioxide 28 mmol/L (22-30); Chloride 102 mmol/L (98-107); Estimated CRCL calculation 51 ml/min; Estimated Glomerular Filt Rate 60; Glucose 119 mg/dL (65-110); Osmolality Calculated 293 mOsm/kg (285-295); Potassium 4.0 mmol/L (3.4-5.0); Sodium 140 mmol/L (137-145); Total Protein 7.8 g/dL (6.3-8.2)
[2025-01-14 00:33] LABS: Troponin I 0.020 ng/mL (0.000-0.034)
[2025-01-14 00:43] LABS: Procalcitonin 0.1 ng/mL
[2025-01-14 00:50] VITALS: BP 137/55; PULSE 88; RESP 18; TEMP 36.7; O2SAT 96
--- NOTE | 2025-01-14 01:08 | PC.NURSE ---
ERP Dr. Beltran speaking with pt at this time providing update and plan of care at this time.
--- NOTE | 2025-01-17 14:57 | PC.NURSE ---
blood culture, preliminary, no growth
--- NOTE | 2025-01-18 16:45 | PC.NURSE ---
preliminary blood cultures x2 reviewed. no growth in 48 hours
--- NOTE | 2025-01-21 13:05 | PC.NURSE ---
FINAL BLOOD CULTURE REPORT; NO GROWTH IN 5 DAYS.
== END 2025-01-14 01:18 | disposition left against medical advice (07) ==
PROVIDERS: Emergency Provider Emergency Medicine; PCP Nurse Practitioner Family
DX: K94.03 Colostomy malfunction (principal); T81.40XA Infection following a procedure, unspecified, initial encounter; B99.9 Unspecified infectious disease; I10 Essential (primary) hypertension; E78.5 Hyperlipidemia, unspecified; J43.9 Emphysema, unspecified; F17.210 Nicotine dependence, cigarettes, uncomplicated; Z79.899 Other long term (current) drug therapy
CPT/HCPCS: 36415; 74176; 80053; 83605; 84145; 84484; 85025; 85055; 93005; 96372; 99284; J2270

== ENCOUNTER 2025-01-17 21:27 | Emergency (ER) | payer OTHER, SELFPAY ==
--- OUTSIDE RECORDS SUMMARY | 2014-07-04 03:28 | XMS_ITS | Continuity of Care Document ---
Author Organization [facility] Address [address] [facility] [address] [place] [address] Phone Care Team Providers Care Program Coordinator For Residence Life Name Role Phone Roni Courtney MD Unavailable [...] Diagnoses Date Provider Providers Copied on Encounter [facility], [address], [facility], tel:[phone] [facility] No Information 5 Roz Tamayo. 1 [place], [place], [address]. tel:[phone] OFFICE/OUTPAT IENT VISIT EST [facility], [address], [address], tel:[phone] [facility] f/u mri (chief complaint) Disorder of bursae and tendons in shoulder regionOther affections of shoulder region, not elsewhere classified 5 Roz Tamayo. 621 [place], [place], [address]. tel:[phone] OFFICE/OUTPAT IENT VISIT [facility], [address] [facility], [place], [address], [place] tel:[phone] [facility] Disorder of bursae and tendons in shoulder region Teresa. [address] [facility] [address], [place], [place], [address]. tel:[phone] Family History Family Member Type Diagnosis Age [...]
--- OUTSIDE RECORDS SUMMARY | 2025-01-17 12:00 | XMS_ITS | Encounter Summary ---
Author Organization [facility] Address [address] [place] [address] Care Team Providers Care Physician Liaison Name Role Phone Sumit Caballero MD Primary Care Provider [phone] Reason for Visit * Auth/Cert (Routine) Specialty Diagnoses / Procedures Referred By Brett t Referred To Contact Home Health Services Referral ID Status Reason Start Date Expiration Date Visits Re quested Visits Authorized [id number] 1 40 Encounter Details Date Type Department Care Team (Late st Contact Info) Description 01/17/2025 12:00 PM CDT Home Care Visit [facility] [address] [place] [address] Alexus Arreaga, RN SN HOME VISIT Social History Tobacco Use Types Packs/Day Years [...] materials from doctor or pharmacy Never 01/11/2025 [facility] Utilities Answer Date Recorded In the [...] any time in the past 12 m [facility], were you homeless or living in [...] Assessment Author Status Yes 12/27/2024 3:34 AM Jonathan Shaw RN Active * Are you blind or do you have serious difficulty seeing, even when wearing glasses? Answer Date of Assessment Author Status No 12/27/2024 3:34 AM Jonathan Shaw RN Active * Do you have serious difficulty walking or climbing stairs? Answer Date of Assessment Author Status Yes 12/27/2024 3:34 AM Jonathan Shaw RN Active * Do you have difficulty dressing or bathing? Answer Date of Assessment Author Status No 12/27/2024 3:34 AM Jonathan Shaw RN Active * Because of a physical, [...] Care Team (Late st Contact Info) Description 01/21/2025 4:30 AM FIELD ADMINISTRATIVE ASSISTANT Appointment [facility] [address] [place] [address] Sarika Villeda [facility] RN 01/21/2025 1:15 PM FIELD ADMINISTRATIVE ASSISTANT Appointment [facility] [address] [place] [address] Vicky Juarez LPN 01/24/2025 8:00 AM FIELD ADMINISTRATIVE ASSISTANT Appointment [facility] [address] [place] [address] Vicky Juarez LPN 01/28/2025 12:00 PM FIELD ADMINISTRATIVE ASSISTANT Appointment [facility] [address] [place] [address] Alexus Arreaga, RN 02/04/2025 12:00 PM FIELD ADMINISTRATIVE ASSISTANT Appointment [facility] [address] [place] [address] Alexus Arreaga, RN 02/11/2025 11:30 AM FIELD ADMINISTRATIVE ASSISTANT Appointment [facility] [address] [place] [address] Alexus Arreaga, RN 02/18/2025 9:00 AM FIELD ADMINISTRATIVE ASSISTANT Appointment [facility] [address] [place] [address] Alexus Arreaga, RN 02/25/2025 8:00 AM FIELD ADMINISTRATIVE ASSISTANT Appointment [facility] [address] [place] [address] Alexus Arreaga, RN 03/04/2025 8:00 AM FIELD ADMINISTRATIVE ASSISTANT Appointment [facility] [address] [place] [address] Alexus Arreaga, RN 03/11/2025 8:00 AM FIELD ADMINISTRATIVE ASSISTANT Appointment [facility] [address] [place] [address] Alexus Arreaga, RN documented as of this encounter Visit Diagnoses Not on filedocumented in this encounter Home Health Visit - Care Plan Visit Details Visit Type -SN - Home Visit Discipline -Half-Way Problems Problem Description Start Date Status Goals Interventions Pain/Physica l Discomfort Disciplines: SN Patient is experiencing pain/physical discomfort. 5 Active 1 goal linked to scheduled/documen silverio intervention 2 goal interventions scheduled/documen silverio in this visit Collaboratio n of Care Disciplines: SN Collaboration for safe care. 5 Active 4 goals linked to scheduled/documen silverio interventions 8 goal interventions scheduled/documen silverio in this visit Fall Precautions Disciplines: Patient at risk for falls or has had recent fall occurrence(s). 5 Active 1 goal linked to scheduled/documen silverio intervention 2 goal interventions scheduled/documen silverio in this visit Ostomy Disciplines: SN Care related to Colostomy related to diagnosis of .ischemic colitis, s/p left hemicolectomy 5 Active 3 goals linked to scheduled/documen silverio interventions 6 goal interventions scheduled/documen silverio in this visit Postsurgical Care Disciplines: SN Care following gastrointestinal surgery. 5 Active 1 goal linked to scheduled/documen silverio intervention 5 goal interventions scheduled/documen silverio in this visit Goals Goal Associated Problem Outcome Goal Met? Visit Notes Patient's pain/physical discomfort will be reduced to the level of patient's stated goal. Description: - Patient's pain/physical discomfort will be reduced to the level of patient's stated goal by 02/06/25. - Patient's desired pain goal is 2. - Patient will verbalize understanding of the pain management plan by 03/11/25. Pain/Physical Discomfort No Hosptial Readmission Reduction Description: Hospital Readmission Reduction - Low Risk (0-6 risk factors). Patient's risk number is 6. Hospital Readmission will be avoided during the first 60-day episode of Homecare through frequency of assessment visits Collaboration of Care No Patient safety met through collaboration for safe care. Description: Clinicians will communicate patient care and safety needs during episode of care through 03/11/25. Collaboration of Care No Nutritional Status for Optimal Health Description: Patient will demonstrate adequate nutritional status as evidenced by stabilization of weight and intake of required nutrients for optimal health and functioning by 03/11/25. Collaboration of Care No Patient verbalizes understanding of medication regimen Description: Patient will verbalize understanding of medication regimen by 03/11/25. Collaboration of Care No Patient/caregiver maintains a safe environment. Description: Patient/caregiver will demonstrate ability to maintain a safe environment without injuries/falls by 03/11/25. Fall Precautions No Patient demonstrates adequate knowledge of ostomy dietary monitoring. Description: - Caregiver will verbalize knowledge of dietary recommendations and fluid balance in relation to ostomy by 02/06/25 Paitent will verbalize consistent output from ostomy by 03/11/25. Ostomy No Patient' ostomy discharge planning needs met Description: - Discharge plan from ostomy care will be complete by 03/11/25. Ostomy No Patient GI/ care needs met without signs/symptoms of complications Description: - Patient will demonstrate ability to perform appliance change, care for peristomal skin, and identify signs of potential skin breakdown by 02/06/25 patient or will verbalize understanding of ostomy appliance change, care by 03/11/25. Ostomy No Patient/caregiver has adequate knowledge of follow-up care. Patient/caregiver understands potential complications, prevention, symptom management, and when to report adverse events. Description: - Patient will have adequate knowledge of follow-up care as evidenced by the ability to describe risk factors and required lifestyle adaptations including compliance with meds, diet, and rehabilitation program as appropriate through 03/11/25. - Patient verbalizes understanding of potential complications, prevention, symptom management, and when to report adverse events to home care agency and/or physician by 02/06/25. Postsurgical Care No Interventions Intervention Associated Problem/Goal Status Variance Visit Notes Instruct on Management of Pain Description: - Teach principles of pain management and involve Patient in developing pain control regimen. - Instructed on non-pharmacological pain reduction techniques. - Instruct Patient on the cause(s) of pain. - Instruct Patient to call Home Health for unsa tisfactory pain relief. - Offer written material related to pain medication to Patient . - Instruct Patient on administration and safe keeping of pain medications and the need to keep accurate records of dosages and times. - Provide Patient with a r ecording tool to enter pain level, situation, medication dosage, and effect of administered medications. Problem:Pain/Physical Discomfort Goal:Patient's pain/physical discomfort will be reduced to the level of patient's stated goal. Scheduled Assess Pain Description: -Perform comprehensive pain assessment of patient's level of pain using Numeric pain scale and assess effectiveness of current pain regimen. -Current medical management for pain is [place]. If no changes or concerns check complete (see Pain Assessment). Problem:Pain/Physical Discomfort Goal:Patient's pain/physical discomfort will be reduced to the level of patient's stated goal. Scheduled Hospitalization Risk Description: Instruct Patient in minimizing hospitalization risk related to COPD, Discharged from Hospital or SNF and Needs help managing Medications. Problem:Collaboration of Care Goal:Hosptial Readmission Reduction Scheduled Assess Vital Signs Description: Obtain and record vital signs. Report to MD . . BP: systolic blood pressure <90 or >160; diastolic blood pressure <60 or >90. Temperature: >100.5 F. Pulse: <60 or >100 bpm. Respiratory Rate: <12 or >28 /min. SPO2: <90%. May check SPO2 as needed for initial assessment or dyspnea. Problem:Collaboration of Care Goal:Patient safety met through collaboration for safe care. Scheduled Insurance Verification Description: Verify with patient/caregiver current insurance coverage. Problem:Collaboration of Care Goal:Patient safety met through collaboration for safe care. Scheduled Plan for Next Visit Description: Next visit plan summation Problem:Collaboration of Care Goal:Patient safety met through collaboration for safe care. Scheduled Instruct Disaster/Evacuation Plan Description: Instruct in planning and execution of disaster/evacuation plan. Assist Patient in development or revision of plan as indicated. Problem:Collaboration of Care Goal:Patient safety met through collaboration for safe care. Scheduled Instruct diet Description: Instruct on As Tolerated diet and any fluid restrictions/requirements. Problem:Collaboration of Care Goal:Nutritional Status for Optimal Health Scheduled Medication Reconciliation Description: - Review and identify unnecessary therapeutic duplication. Each clinician to perform bottle check weekly on their first visit of the week. - Patient to take medications from pill bottles set up by Other: Problem:Collaboration of Care Goal:Patient verbalizes understanding of medication regimen Scheduled Medication Management Description: - Assess Patient and ability to manage medications. Provide detailed instruction on proper administration and medication management. - Instruct Patient and in medication administration, purpose, dosages, preparation, scheduling, side e ffects, food/drug & drug/drug interactions, storage, and potential complications. Problem:Collaboration of Care Goal:Patient verbalizes understanding of medication regimen Scheduled Instruct on Fall Prevention Description: Educate Patient about fall prevention. Problem:Fall Precautions Goal:Patient/caregiver maintains a safe environment. Scheduled Report Falls to Provider within 24 Hours Description: Report witnessed or reported falls to provider within 24 hours . Problem:Fall Precautions Goal:Patient/caregiver maintains a safe environment. Scheduled Instruct Ostomy Diet Description: - Instruct on As Tolerated diet and any fluid restrictions/requirements, impact of food on stoma output, and importance of adequate hydration. Instruct on potential for fluid imbalance and symptoms of dehydration. Problem:Ostomy Goal:Patient demonstrates adequate knowledge of ostomy dietary monitoring. Scheduled Ostomy Discharge Planning Description: - Plan for supplies: DME supplier of choice - Support group referral - Outpatient wound center referral Problem:Ostomy Goal:Patient' ostomy discharge planning needs met Scheduled Instruct coping Description: - Assess Patient learning and coping abilities, developmental level, support system, willingness to learn, barriers to communication, and willingness to participate in the prescribed treatment regimen. - Instruct Patient on effective coping and problem -solving skills. - Instruct patient to avoid known/identified stressors or events that prevent use of constructive coping mechanisms/behaviors. Problem:Ostomy Goal:Patient GI/ care needs met without signs/symptoms of complications Scheduled Ostomy Care Description: Perform ostomy care every 3-5 days using 1 or 2 piece appliance. Wash hands. Remove old appliance. Inspect skin and stoma. Cleanse area with prescribed cleaning agent. Apply skin barrier as needed. Apply new appliance. List supplies (brand/size): Dylan maradiaga [id number], [id number] Problem:Ostomy Goal:Patient GI/ care needs met without signs/symptoms of complications Scheduled Instruct Ostomy Maintenance Description: - Instruct Patient in appliance change, cleaning, and peristomal skin inspection. - Instruct Patient in methods of odor control, strategies to prevent infection. - Instruct Patient in strategies to prevent infection: frequent/proper hand-washing gabriela hniques, Standard precautions, avoid crowds and persons with known infections, staying current with immunizations, s/s of infection, use of incentive spirometer, use of antibiotics and encourage adequate diet and fluid intake, how to recognize signs and symptoms of infection, and when to notify home care agency and/or physician. Problem:Ostomy Goal:Patient GI/ care needs met without signs/symptoms of complications Scheduled Assess Ostomy Description: - Assess effluent description, patency, appliance wear time, patient satisfaction/ability to perform care. - Assess psychosocial barriers, pain, infection, peristomal skin, bud perfusion, odor. Problem:Ostomy Goal:Patient GI/ care needs met without signs/symptoms of complications Scheduled Bowel Regimen Description: Instruct Patient to keep diary of bowel movements, increasing fiber and fluid intake if appropriate, medication side effects, and meds to prevent constipation. Problem:Postsurgical Care Goal:Patient/caregiver has adequate knowledge of follow-up care. Patient/caregiver understands potential complications, prevention, symptom management, and when to report adverse events. Scheduled Immobility Complications Description: - Instruct Patient on strategies to prevent complications of immobility and measures to improve/maintain mobility and safety. - Reinforce correct usage of assistive equipment as indicated. Problem:Postsurgical Care Goal:Patient/caregiver has adequate knowledge of follow-up care. Patient/caregiver understands potential complications, prevention, symptom management, and when to report adverse events. Scheduled Postsurgical Care Description: - Instruct Patient on signs/symptoms of postoperative complications i.e., wound infection, DVT, pneumonia, activity restrictions, increased pain, fever, shortness of breath. - Instruct Patient on pulmonary hygiene including cough, deep breathing, inha ler, activity. Problem:Postsurgical Care Goal:Patient/caregiver has adequate knowledge of follow-up care. Patient/caregiver understands potential complications, prevention, symptom management, and when to report adverse events. Scheduled Incision Site Care Description: - Instruct Patient on wound care, signs/symptoms of infection or complication including fever, increasing pain and swelling, drainage, redness. - Staple removal per physician orders: to be completed at two week followup visit Problem:Postsurgical Care Goal:Patient/caregiver has adequate knowledge of follow-up care. Patient/caregiver understands potential complications, prevention, symptom management, and when to report adverse events. Scheduled Prevention of DVT Description: - Instruct Patient in methods to prevent deep vein thrombosis, medication regimen and activity as well as signs/symptoms to watch for. - Teach patient to notify doctor if tenderness, heat, firmness, localized swelling in calf. Problem:Postsurgical Care Goal:Patient/caregiver has adequate knowledge of follow-up care. Patient/caregiver understands potential complications, prevention, symptom management, and when to report adverse events. Scheduled documented in this encounter Care Teams Physician Liaison Relationship Specialty Start Date End Date Sumit Caballero MD [address] [place] [address] PCP - General INTERNAL MEDICINE 11/30/18 documented as of this encounter
--- OUTSIDE RECORDS SUMMARY | 2025-01-17 21:30 | XMS_ITS | Clinical Summary ---
Author Organization [facility] Address [address] [place] [address] Care Team Providers Care Technology Analyst Name Role Phone Tommie Archuleta MD Primary Care Provider [phone] Source Comments [facility] [employer],non-owned Affiliates and Associated Physician Practices is amultiple site organization consisting of ambulatory clinics and hospital sitesin [place], [place], [place] and [place]. This disclosure is being madepursuant to the Care Everywhere program and may not contain all information available regarding this patient. Last updated 17.[facility] [employer] Social History Tobacco Use Types Packs/Day Years Used Date Smoking Tobacco: Never Assessed Comments Unknown Sex and Gender Information Value Date Recorded Sex Assigned at Not on file Legal Sex Female 6:21 AM [employer] Gender Identity Not on file Sexual Orientation [...] patient's age to complete this topic Insurance [facility] [place] Address: [facility] [address] [place] [address] Care Teams Technology Analyst Relationship Specialty Start Date End Date Tommie Archuleta MD [address] [place] [address] PCP - General 05/21/18
--- OUTSIDE RECORDS SUMMARY | 2025-01-17 21:30 | XMS_ITS | Clinical Summary ---
Author Organization [facility] Address [address] [facility] [place] [address] Care Team Providers Care Social Worker Psychiatric Name Role Phone No, Physician Primary Care Provider [phone] Saroj Solano MD Unavailable [phone] Allergies Active Allergy Reactions Criticality Noted Date [...] Other Medical Brain surg. 200 0.; Comments: [facility] 05/06/2014 - Cancer (HCC) Family History Medical [...] on file Legal Sex Female 1:38 AM [employer] Gender Identity Not on file Sexual Orientation Not on file Obstetrics History Last Filed Vital Signs Vital Sign Reading Time Taken Comments Blood Pressure 181/96 05/24/2019 11:30 AM [employer] Pulse 92 05/24/2019 11:30 AM [employer] Temperature - - Respiratory Rate - - Oxygen Saturation - - Inhaled Oxygen Concentration - - Weight 78 kg (172 lb) 05/24/2019 11:30 AM [employer] Height 171.5 cm (5' 7.5) 05/24/2019 11:30 AM CS T Body Mass Index 26.54 05/24/2019 11:30 AM [employer] Plan of Treatment Not on file Insurance [facility] [employer] Care Teams Social Worker Psychiatric Relationship Specialty Start Date End Date No, Physician PCP - General 04/18/19 Saroj Solano MD Family Medicine 04/18/19
--- OUTSIDE RECORDS SUMMARY | 2025-01-17 21:30 | XMS_ITS | Clinical Summary ---
Author Organization [facility] Address [address] [place] [address] Care Team Providers Care Radar Scientist Name Role Phone Sumit Caballero MD Primary Care Provider [phone] Allergies Active Allergy Reactions Criticality Noted Date [...] assistance becomes available 1 each 01/06/20 25 026 Active HYDROcodone-ac etaminophen (NORCO) 5-325 MG tabletIndicati ons:Acute Pain < 7 Day Supply Take 1 tablet by mouth every 6 (six) hours as needed. Indications: Acute Pain < 7 Day Supply 16 tablet 01/09/20 25 Active Esomeprazole Magnesium 20 MG Tab ECIndications: gerd Take 40 mg by mouth daily. Indications: gerd 01/12/20 25 Active oxyCODONE-acet aminophen (PERCOCET) 5-325 MG tabletIndicati ons:Acute Pain < 3 Day Supply Take 12 tablets by mouth every 8 (eight) hours as needed for Pain. Indications: Acute Pain < 3 Day Supply 12 tablet 01/15/20 25 Active clindamycin (CLEOCIN) 300 MG capsule Take 1 capsule (300 mg total) by mouth 4 (four) times daily. 12/29/19 24 025 Discontin ued(Error ) diclofenac EC (VOLTAREN) 50 MG tablet Take 1 tablet (50 mg total) by mouth 2 (two) times daily. 01/08/20 24 025 Discontin ued(Stop Taking at Discharge ) [...] Encounters Date Type Department Care Team Description 01/17/2025 12:00 PM CDT Home Care Visit [facility] Home Care [facility] [address] [place] [address] Alexus Arreaga RN SN HOME VISIT 01/16/2025 9:45 AM CDT Home Care Visit [facility] [address] [place] [address] Grace Farmer, OT OT INITIAL EVALUATION 01/14/2025 4:31 PM CDT - 01/14/2025 10:46 PM CDT Emergency [facility] [address] [place] [address] Ez Reardon, Isabel Mccauley MD Medical Problem Discharge Disposition: Home or Self Care (Routine Discharge) 01/14/2025 1:00 PM CDT Home Care Visit [facility] [address] [place] [address] Sarika Villeda, WOC RN HH/HSPC ORIENTATION VISIT 01/14/2025 1:00 PM CDT Home Care Visit [facility] [address] [place] [address] Niru Juarez LPN SN HOME VISIT 01/14/2025 11:00 AM CDT Home Care Visit [facility] [address] [place] [address] Kristine Barreto, PT PT INITIAL EVALUATION 01/14/2025 Travel 01/14/2025 Home Care Visit [facility] [address] [place] [address] Aida Foss, RN SN TELEPHONE CALL 01/12/2025 Home Care Visit [facility] [address] [place] [address] Sarika Abel, RN CASE COMMUNICATION 01/11/2025 11:00 AM CDT Home Care Visit [facility] [address] [place] [address] Aida Foss, RN SN OASIS START OF CARE 01/11/2025 Plan of Care Documentation [facility] [address] [place] [address] 01/08/2025 8:45 AM CDT Home Care Visit [facility] [address] [place] [address] Artie Moulton RN SN NON ADMIT SOC 01/08/2025 4:39 AM CDT - 01/08/2025 7:41 AM CDT Emergency [facility] [address] [place] [address] Carlos Ricardo MD Surgery Follow Up Discharge Disposition: Home or Self Care (Routine Discharge) 01/08/2025 Travel 01/07/2025 1:15 PM CDT Home Care Visit [facility] [address] [place] [address] Maribel Sagastume RN SN NON ADMIT SOC 12/28/2024 12:34 PM CDT Anesthesia Event [facility] [address] [place] [address] Kaushik Burleson MD 12/28/2024 11:25 AM CDT - 12/28/2024 3:16 PM CDT Surgery [facility] [address] [place] [address] Niru Diaz, DO RE-LOOK LAPAROTOMY with creation of end colostomy 12/27/2024 6:23 AM CDT Anesthesia Event [facility] [address] [place] [address] Shan Mittal MD Lajeunesse, Kaylie [facility] 12/27/2024 5:55 AM CDT - 12/27/2024 7:47 AM CDT Surgery [facility] [address] [place] [address] Niru Diaz, DO LAPAROTOMY EXPLORATORY WITH MOBILIZATION OF SPLENIC FLEXURE AND DESCENDING COLON RESECTION, ABTHERA WOUND VAC PLACEMENT 12/27/2024 2:43 AM CDT - 01/05/2025 3:46 PM CDT Hospital Encounter [facility] [address] [place] [address] Angel Gonzalez MD Imam, Michael M, DO Chidi Gallagher MD Gowda, Chetan N, MD Discharge Disposition: [...] materials from doctor or pharmacy Never 01/11/2025 [facility] Utilities Answer Date Recorded In the past 12 months has th e [employer], gas, oil, or water [employer] threatened to shut off services in your [...] any time in the past 12 m [facility], were you homeless or living in a group home (including now)? No 12/27/2024 Comments No Sex and Gender Information Value Date Recorded Sex Assigned at Female 12/27/2024 3:39 AM CDT Legal Sex Female 1:27 AM CDT Gender Identity Female 12/27/2024 3:39 AM CDT Sexual Orientation Not on file Last Filed Vital Signs Vital Sign Reading Time Taken Comments Blood Pressure 130/50 01/16/2025 10:06 AM CDT Pulse 85 01/16/2025 10:06 AM CDT Temperature 36.7 C (98.1 F) 01/16/2025 10:06 AM CDT Respiratory Rate 19 01/14/2025 10:00 PM CDT Oxygen Saturation 97% 01/16/2025 10:06 AM CDT Inhaled Oxygen Concentration - - Weight 74.8 kg (165 lb) 01/14/2025 3:19 PM CDT Height 170.2 cm (5' 7) 01/14/2025 3:19 PM CDT Body Mass Index 25.84 01/14/2025 3:19 PM CDT Plan of Treatment Upcoming Encounters Date Type Department Care Team (Late st Contact Info) Description 01/21/2025 4:30 AM PODIATRIC SURGEON Appointment [facility] [address] [place] [address] Sarika Villeda [facility] RN 01/21/2025 1:15 PM PODIATRIC SURGEON Appointment [facility] [address] [place] [address] Niru Juarez LPN 01/24/2025 8:00 AM PODIATRIC SURGEON Appointment [facility] [address] [place] [address] Niru Juarez LPN 01/28/2025 12:00 PM PODIATRIC SURGEON Appointment [facility] [address] [place] [address] Alexus Arreaga, RN 02/04/2025 12:00 PM PODIATRIC SURGEON Appointment [facility] [address] [place] [address] Alexus Arreaga, RN 02/11/2025 11:30 AM PODIATRIC SURGEON Appointment [facility] [address] [place] [address] Alexus Arreaga, RN 02/18/2025 9:00 AM PODIATRIC SURGEON Appointment [facility] [address] [place] [address] Alexus Arreaga, RN 02/25/2025 8:00 AM PODIATRIC SURGEON Appointment [facility] [address] [place] [address] Alexus Arreaga, RN 03/04/2025 8:00 AM PODIATRIC SURGEON Appointment [facility] [address] [place] [address] Alexus Arreaga, RN 03/11/2025 8:00 AM PODIATRIC SURGEON Appointment [facility] [address] [place] [address] Alexus Arreaga, RN Health Maintenance Due Date [...] Procedure Name Priority Date/Time Associated Diagnosis Comments URINE BACTERIA CULTURE Nurse Collected Priority 01/14/2025 8:27 PM CDT HC URINALYSIS AUTO W/MICRO Nurse Collected Priority 01/14/2025 8:27 PM CDT TROPONIN, QUANT STAT 01/14/2025 8:00 PM CDT CTA ABD+PEL STAT 01/14/2025 7:25 PM CDT ECG 12-LEAD STAT 01/14/2025 6:31 PM CDT TROPONIN, QUANT STAT 01/14/2025 5:04 PM CDT LACTIC ACID W REFLEX (SEPSIS) STAT 01/14/2025 5:04 PM CDT MAGNESIUM STAT 01/14/2025 5:04 PM CDT LIPASE STAT 01/14/2025 5:04 PM CDT COMPREHENSIVE METABOLIC PANEL STAT 01/14/2025 5:04 PM CDT CBC W/DIFF AUTOMATED STAT 01/14/2025 5:04 PM CDT CULTURE, BACTERIA, BLOOD STAT 01/14/2025 5:03 PM CDT PHOSPHORUS, INORGANIC PHOSPHATE Routine 01/04/2025 4:40 AM [...] DEVICE Routine 01/01/2025 3:58 PM CDT C ANILPCR,AXILLA/TERESA IN,NARES Routine 01/01/2025 12:50 PM CDT POCT [...] #3ADDED ON 12/27/2024 @ 1833[facility] POCT GLUCOSE - DOCKED DEVICE Routine [...] PM CDT COLONOSCOPY Routine 03/20/2009 12:00 AM PODIATRIC SURGEON from Last 3 Months or Most Recently Relevant to Health Maintenance Results * (ABNORMAL) URINALYSIS (01/14/2025 8:27 PM CDT) Only the most recent of2 resultswithin the time period is included. COLOR (U) LIGHT YELLOW 01/14/2025 9:50 PM CDT [facility] TRANSPARENCY CLEAR 01/14/2025 9:50 PM CDT [facility] SPECIFIC GRAVITY (U) 1.032 1.002 - 1.035 01/14/2025 9:50 PM CDT [facility] U PH 6.5 5 - 8 01/14/2025 9:50 PM CDT [facility] PROTEIN RANDOM (U) NEGATIVE NEGATIVE 01/14/2025 9:50 PM CDT [facility] GLUCOSE (U) NEGATIVE NEGATIVE MG/DL 01/14/2025 9:50 PM CDT [facility] KETONES MG/DL (U) NEGATIVE NEGATIVE 01/14/2025 9:50 PM CDT [facility] BILIRUBIN (U) NEGATIVE NEGATIVE 01/14/2025 9:50 PM CDT [facility] BLOOD (U) NEGATIVE NEGATIVE 01/14/2025 9:50 PM CDT [facility] NITRITES NEGATIVE NEGATIVE 01/14/2025 9:50 PM CDT [facility] UROBILINOGEN NORMAL 0 - 1 EU/DL 01/14/2025 9:50 PM CDT [facility] LEUKOCYTES (U) TRACE(A) NEGATIVE 01/14/2025 9:50 PM CDT [facility] RBC/HPF 1 0 - 3 /HPF 01/14/2025 9:50 PM CDT [facility] WBC/HPF 4 0 - 6 /HPF 01/14/2025 9:50 PM CDT [facility] BACTERIA (U) NONE /HPF 01/14/2025 9:50 PM CDT [facility] SQUAMOUS EPITHELIALS 2 01/14/2025 9:50 PM CDT [facility] URINE SPECIMEN OBTAINED BY CLEAN CATCH PROCEDURE / Unknown 01/14/2025 8:27 PM CDT us Philip Alberto SNAP ATTACHER URINE ORDERABLES Final Resu lt Performing Organization Address City/[facility]/ZIP Co de Phone Number [facility] [address] [place] [address] [phone] * CULTURE URINE (01/14/2025 8:27 PM CDT) SPEC DESCRIPTION URINE CLEAN CATCH 01/14/2025 8:27 PM CDT [facility] SPECIAL REQUESTS NO SPECIAL REQUEST 01/14/2025 8:27 PM CDT [facility] CULTURE RESULT NO GROWTH (< OR = 1,000 CFU/ML) 01/16/2025 11:58 AM CDT [facility] URINE SPECIMEN OBTAINED BY CLEAN CATCH PROCEDURE / Unknown 01/14/2025 8:27 PM CDT 01/14/2025 8:59 PM CDT Philip Alberto SNAP ATTACHER MICROBIOLOGY - GENERAL ORDE RABLES Final Result Performing Organization Address City/[facility]/ZIP Co de Phone Number [facility] [address] [place] [address], [place] [phone] * TROPONIN, QUANT (01/14/2025 8:00 PM CDT) Only the most recent of5 resultswithin the time period is included. TROPONIN I HIGH SENSITIVITY 49 0 - 53 ng/L 01/14/2025 9:28 PM CDT [facility] 01/14/2025 8:00 PM CDT us Isabel Lan MD LABORATORY Final Result [facility] [address] [place] [address], [place] [phone] * CTA ABD+PEL (01/14/2025 7:25 PM CDT) Anatomical Region Laterality Modality Abdomen, Pelvis Computed Tomogra phy 01/14/2025 7:40 PM CDT Impressions 01/14/2025 7:56 PM CDT IMPRESSION: 1. Mild colonic wall thickening just proximal to left-sided ostomy, favoring a postoperative appearance. Colitis of infectious, inflammatory or ischemic etiology is less likely. Correlation with serum lactate can also be helpful. 2. Moderate colonic stool burden. 3. 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 4. Additional findings as above. Referred By: Interpreted By: Bebeto Wolff MD, 01/14/2025 7:40 PM Narrative 01/14/2025 7:56 PM CDT [facility] [address] [place], [place] [address] EXAMINATION: CTA abdomen and pelvis with contrast EXAM DATE/TIME: 01/14/2025 7:25 PM REASON FOR EXAM: Worsening abdominal pain, Rule out ischemic bowel, partial colectomy, status post colostomy COMPARISON: CT abdomen pelvis 01/02/2025. TECHNIQUE: Axial CT images of the abdomen and pelvis were obtained following uneventful intravenous administration of 100 cc Isovue-370. Subsequent coronal and sagittal reformatted sequences are created for evaluation. In addition 3-D rotational MIP imaging of the abdominal, and pelvic arterial vasculature was created on separate workstation for review. Automated exposure control was utilized for dose reduction. FINDINGS: No evidence of aortic dissection. Atherosclerosis. Focal dilatation of the infrarenal abdominal aorta measuring up to 2.4 cm and more inferiorly up to 2.6 cm similar to prior when measured in a similar fashion. 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 No evidence of active arterial extravasation. Additional findings: Lung bases: No pulmonary mass or airspace consolidation. Multifocal scarring and/or atelectasis. Mild cardiomegaly. Moderate sized hiatal hernia. Liver/biliary: The liver is mildly enlarged, steatotic and smooth in surface contour. No focal liver lesion is seen. Gallbladder is surgically absent. Likely associated dilatation of the common bile duct, similar to prior. Pancreas/adrenals/spleen: Splenic hypodensity measuring 2.3 cm similar to prior likely a splenic infarct, age indeterminate. Genitourinary: No hydronephrosis is seen. No renal mass lesion is seen. Urinary bladder is within normal limits. The uterus is not seen. Bowel: Partial colectomy and left-sided ostomy. Moderate colonic stool burden. No bowel obstruction. Mild colonic wall thickening just proximal to ostomy. The appendix is not visualized without evidence of appendicitis. Peritoneum: No free air or free fluid is seen. Lymph nodes: No lymphadenopathy is seen. Musculoskeletal: No acute osseous findings. Procedure Note Bebeto Wolff MD - 01/14/[address] [address] EXAMINATION: CTA abdomen and pelvis with contrast EXAM DATE/TIME: 01/14/2025 7:25 PM REASON FOR EXAM: Worsening abdominal pain, Rule out ischemic bowel,partial colectomy, status post colostomy COMPARISON: CT abdomen pelvis 01/02/2025. TECHNIQUE: Axial CT images of the abdomen and pelvis were obtainedfollowing uneventful intravenous administration of 100 cc Isovue-370.Subsequent coronal and sagittal reformatted sequences are created forevaluation. In addition 3-D rotational MIP imaging of the abdominal, andpelvic arterial vasculature was created on separate workstation [employer]. Automated exposure control was utilized for dose reduction. FINDINGS: No evidence of aortic dissection. Atherosclerosis. Focal dilatation of the infrarenal abdominal aortameasuring up to 2.4 cm and more inferiorly up to 2.6 cm similar to priorwhen measured in a similar fashion. 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 No evidence of active arterial extravasation. Additional findings: Lung bases: No pulmonary mass or airspace consolidation. Multifocalscarring and/or atelectasis. Mild cardiomegaly. Moderate sized hiatalhernia. Liver/biliary: The liver is mildly enlarged, steatotic and smooth insurface contour. No focal liver lesion is seen. Gallbladder is surgicallyabsent. Likely associated dilatation of the common bile duct, similar toprior. 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 Genitourinary: No hydronephrosis is seen. No renal mass lesion is seen.Urinary bladder is within normal limits. The uterus is not seen. Bowel: Partial colectomy and left-sided ostomy. Moderate colonic stoolburden. No bowel obstruction. Mild colonic wall thickening just proximalto ostomy. The appendix is not visualized without evidence ofappendicitis. Peritoneum: No free air or free fluid is seen. Lymph nodes: No lymphadenopathy is seen. Musculoskeletal: No acute osseous findings. IMPRESSION: 1. Mild colonic wall thickening just proximal to left-sided ostomy,favoring a postoperative appearance. Colitis of infectious, inflammatoryor ischemic etiology is less likely. Correlation with serum lactate canalso be helpful. 2. Moderate colonic stool burden. 3. 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 4. Additional findings as above. Referred By: Interpreted By: Bebeto Wolff MD, 01/14/2025 7:40 PM us Ez Reardon DO CT Final Resul t * ECG 12 lead (01/14/2025 6:31 PM CDT) Only the most recent of5 resultswithin the time period is included. ECG QT 364 [facility] ECG QTC 434 [facility] 01/14/2025 6:31 PM CDT Narrative [facility] - 01/15/2025 6:14 AM CDT [facility] Test Date: 2025-01-14 Pat Name: MAMI MENENDEZNJMagdalena Department: 70 Room: EXAM CC Gender: Female Tamper Operator: : 1960 Requested By: EZ REARDON Order Number: [id number] Reading MD: Radha Nixon Measurements Intervals [place] Rate: 85 P: 38 [place]: 167 QRS: 15 QRSD: 94 T: 33 QT: 364 QTc: 434 Interpretive Statements SINUS RHYTHM POSSIBLE RIGHT VENTRICULAR CONDUCTION DELAY ST DEVIATION AND MODERATE T-WAVE ABNORMALITY, CONSIDER LATERAL ISCHEMIA Procedure Note Radha Nixon MD - 01/15/2025 [facility] Test Date: 2025-01-14 Pat Name: MAMI MENENDEZNJMagdalena Department: 70 Room: EXAM CC Gender: Female Tamper Operator: : 1960 Requested By: EZ REARDON Order Number: [id number] Reading MD: Radha Nixon Measurements Intervals [place] Rate: 85 P: 38 [place]: 167 QRS: 15 QRSD: 94 T: 33 QT: 364 QTc: 434 Interpretive Statements SINUS RHYTHM POSSIBLE RIGHT VENTRICULAR CONDUCTION DELAY ST DEVIATION AND MODERATE T-WAVE ABNORMALITY, CONSIDER LATERAL ISCHEMIA us Ez Reardon DO ECG ORDERABLES Final Resul t [facility] * LACTIC ACID W REFLEX (SEPSIS) (01/14/2025 5:04 PM CDT) Only the most recent of3 resultswithin the time period is included. LACTIC ACID VENOUS 1.5 0.4 - 2.0 MMOL/L 01/14/2025 5:44 PM CDT [facility] 01/14/2025 5:04 PM CDT us Philip Alberto SNAP ATTACHER LABORATORY Final Resul t [facility] [address] [place] [address], [id number] * (ABNORMAL) COMPREHENSIVE METABOLIC PANEL (01/14/2025 5:04 PM CDT) Only the most recent of2 resultswithin the time period is included. Pathologist [facility] SODIUM S/P/B 138 136 - 145 MMOL/L 01/14/2025 5:50 PM CDT [facility] POTASSIUM S/P/B 3.8 3.5 - 5.1 MMOL/L 01/14/2025 5:50 PM CDT [facility] CHLORIDE S/P/B 107 97 - 115 MMOL/L 01/14/2025 5:50 PM CDT [facility] CO2 26.3 21.0 - 32.0 MMOL/L 01/14/2025 5:50 PM CDT [facility] GLUCOSE 108(H) 74 - 106 MG/DL 01/14/2025 5:50 PM CDT [facility] BUN 14 7 - 18 MG/DL 01/14/2025 5:50 PM CDT [facility] CREATININE S/P/B 0.78 0.55 - 1.02 MG/DL 01/14/2025 5:50 PM CDT [facility] CALCIUM S/P/B 8.5 8.5 - 10.1 MG/DL 01/14/2025 5:50 PM CDT [facility] BILIRUBIN TOTAL S/P/B 0.2 0.2 - 1.0 MG/DL 01/14/2025 5:50 PM CDT [facility] ALKALINE PHOSPHATASE S/P/B 352(H) 50 - 130 U/L 01/14/2025 5:50 PM CDT [facility] AST 26 15 - 37 U/L 01/14/2025 5:50 PM CDT [facility] ALT 24 13 - 56 U/L 01/14/2025 5:50 PM CDT [facility] TOTAL PROTEIN S/P/B 6.8 6.4 - 8.2 G/DL 01/14/2025 5:50 PM CDT [facility] ALBUMIN S/P/B 2.8(L) 3.4 - 5.0 G/DL 01/14/2025 5:50 PM CDT [facility] ANION GAP 4.7 2.0 - 10.0 MMOL/L 01/14/2025 5:50 PM CDT [facility] OSMOLALITY (CALC) 287 MOSM/KG 025 5:50 PM CDT [facility] Comment:REFERENCE RANGE NOT ESTABLISHED GFR ESTIMATE 84(L) >90 ML/MIN/1. 73 M2 01/14/2025 5:50 PM CDT [facility] GFR NOTES GFR REFERENCE S: 01/14/2025 5:50 PM CDT [facility] Comment: THE ESTIMATED GFR IS CALCULATED [...] ml/min/1.73 m2 G5,KIDNEY FAILURE: <15 ml/min/1.73 m2 01/14/2025 5:04 PM CDT us Philipdorina Alberto SNAP ATTACHER LABORATORY Final Resul t [facility] [address] [place] [address], [id number] * (ABNORMAL) CBC W/DIFF AUTOMATED (01/14/2025 5:04 PM CDT) Only the most recent of10 resultswithin the time period is included. Pathologist [facility] WBC 10.89(H) 4.00 - 10.80 x10'3/uL 01/14/2025 5:26 PM CDT [facility] RBC 4.10 4.10 - 5.40 x10'6/uL 01/14/2025 5:26 PM CDT [facility] HGB 9.0(L) 12.0 - 16.0 G/DL 01/14/2025 5:26 PM CDT [facility] HCT 31.2(L) 36.0 - 47.0 % 01/14/2025 5:26 PM CDT [facility] MCV 76.1(L) 78.0 - 100.0 FL 01/14/2025 5:26 PM CDT [facility] MCH 22.0(L) 27.0 - 31.0 PG 01/14/2025 5:26 PM CDT [facility] MCHC 28.8(L) 33.0 - 36.0 G/DL 01/14/2025 5:26 PM CDT [facility] RDW 31.5(H) 11.5 - 14.5 % 01/14/2025 5:26 PM CDT [facility] PLT 746(H) 150 - 350 x10'3/uL 01/14/2025 5:26 PM CDT [facility] MPV 8.5 7.4 - 10.4 FL 01/14/2025 5:26 PM CDT [facility] DIFFERENTIAL TYPE AUTOMATED DIFFERENTIAL 01/14/2025 5:51 PM CDT [facility] SEG NEUTROPHILS 67.2 % 5:51 PM CDT [facility] LYMPHOCYTES 19.7 % 01/14/2025 5:51 PM CDT [facility] MONOCYTES 7.0 % 01/14/2025 5:51 PM CDT [facility] EOSINOPHILS 4.5 % 01/14/2025 5:51 PM CDT [facility] BASOPHILS 1.1 % 01/14/2025 5:51 PM CDT [facility] IMMATURE GRANS % 0.5 % 01/15/20 5:51 PM CDT [facility] ABS. NEUTROPHILS 7.33 1.60 - 8.30 x10'3/uL 01/14/2025 5:51 PM CDT [facility] ABS. LYMPHOCYTES 2.14 0.80 - 4.70 x10'3/uL 01/14/2025 5:51 PM CDT [facility] ABS. MONOCYTES 0.76 0.00 - 1.50 x10'3/uL 01/14/2025 5:51 PM CDT [facility] ABS. EOSINOPHILS 0.49(H) 0.00 - 0.40 x10'3/uL 01/14/2025 5:51 PM CDT [facility] ABS. BASOPHILS 0.12 0.00 - 0.20 x10'3/uL 01/14/2025 5:51 PM CDT [facility] ABS. IMMATURE GRANULOCYTES 0.05(H) 0.00 - 0.03 x10'3/uL 01/14/2025 5:51 PM CDT [facility] ABS. NUCLEATED RBC'S 0.00 0.00 - 0.01 x10'3/uL 01/14/2025 5:51 PM CDT [facility] NRBC % 0.0 % 01/14/2025 5:51 PM CDT [facility] RBC MORPHOLOGY SLIDE REVIEWED 2024 5:51 PM CDT [facility] ANISO MARKED 01/14/2025 5:51 PM CDT [facility] POIKLO SLIGHT 01/14/2025 5:51 PM CDT [facility] HYPOCHROMASIA MODERATE 01/14/2025 5:51 PM CDT [facility] MICRO SLIGHT 01/14/2025 5:51 PM CDT [facility] POLY SLIGHT 01/14/2025 5:51 PM CDT [facility] OVALOCYTES PRESENT 01/14/2025 5:51 PM CDT [facility] TARGET CELLS PRESENT 01/14/2025 5:51 PM CDT [facility] ACANTHOCYTES PRESENT 01/14/2025 5:51 PM CDT [facility] PLT EST. INCREASED 01/14/2025 5:51 PM CDT [facility] 01/14/2025 5:04 PM CDT Philip Alberto SNAP ATTACHER LABORATORY Final Resul t Performing Organization Address [facility] Co de Phone Number [facility] [address] [place] [address], [phone] * (ABNORMAL) MAGNESIUM (01/14/2025 5:04 PM CDT) Only the most recent of9 resultswithin the time period is included. MAGNESIUM 1.5(L) 1.6 - 2.6 MG/DL 01/14/2025 5:50 PM CDT [facility] 01/14/2025 5:04 PM CDT Philip Alberto SNAP ATTACHER LABORATORY Final Resul t Performing Organization Address [facility]/ZIP Co de Phone Number [facility] [address] [place] [id number], [place] [phone] * LIPASE (01/14/2025 5:04 PM CDT) LIPASE 54 13 - 75 UNITS/L 01/14/2025 5:50 PM CDT [facility] 01/14/2025 5:04 PM CDT us Philip Alberto SNAP ATTACHER LABORATORY Final Resul t [facility] [address] [place] [address], [id number] * (ABNORMAL) BASIC METABOLIC PANEL (01/04/2025 4:40 AM CDT) Only the most recent of8 resultswithin the time period is included. SODIUM S/P/B 138 136 - 145 MMOL/L 01/04/2025 5:55 AM CDT [facility] POTASSIUM S/P/B 4.4 3.5 - 5.1 MMOL/L 01/04/2025 5:55 AM CDT [facility] Comment:MILD HEMOLYSIS, RESU LT MAY BE AFFECTED. CHLORIDE S/P/B 103 97 - 115 MMOL/L 01/04/2025 5:55 AM CDT [facility] CO2 30.9 21.0 - 32.0 MMOL/L 01/04/2025 5:55 AM CDT [facility] GLUCOSE 122(H) 74 - 106 MG/DL 01/04/2025 5:55 AM CDT [facility] BUN 11 7 - 18 MG/DL 01/04/2025 5:55 AM CDT [facility] CREATININE S/P/B 0.52(L) 0.55 - 1.02 MG/DL 01/04/2025 5:55 AM CDT [facility] CALCIUM S/P/B 8.5 8.5 - 10.1 MG/DL 01/04/2025 5:55 AM CDT [facility] ANION GAP 4.1 2.0 - 10.0 MMOL/L 01/04/2025 5:55 AM CDT [facility] OSMOLALITY (CALC) 287 MOSM/KG 025 5:55 AM CDT [facility] Comment:REFERENCE RANGE NOT ESTABLISHED GFR ESTIMATE >90 >90 ML/MIN/1. 73 M2 01/04/2025 5:55 AM CDT [facility] GFR NOTES GFR REFERENCE S: 01/04/2025 5:55 AM CDT [facility] Comment: THE ESTIMATED GFR IS CALCULATED [...] us Montez Molina MD LABORATORY Final Result [facility] [address] [place] [address], [id number] * PHOSPHORUS, INORGANIC PHOSPHATE (01/04/2025 4:40 AM CDT) Only the most recent of8 resultswithin the time period is included. PHOSPHORUS 4.3 2.5 - 4.9 MG/DL 01/04/2025 5:55 AM CDT [facility] 01/04/2025 4:40 AM CDT us Montez Molina MD LABORATORY Final Result Performing Organization Address [facility] Co de Phone Number [facility] [address] [place] [address], [place] [phone] [id number] * (ABNORMAL) POCT glucose (01/03/2025 11:22 AM CDT) Only the most recent of26 resultswithin the time period is included. GLUCOSE POC 194(H) 70 - 109 01/03/2025 11:32 AM CDT [facility] 01/03/2025 11:2 2 AM CDT Montez Molina MD POCT ORDERABLES - DEVICE Final Result Performing Organization Address [facility] de Phone Number [facility] [address] [place], [place] [address], [place] [phone] * CT ABD+PEL W CON (01/02/2025 11:10 [...] PM Narrative 01/02/2025 1:56 PM CDT [address] [address] EXAMINATION: CT ABD+PEL W CON EXAM DATE: [...] Procedure Note Jim Blanco DO - 01/02/[address] [address] EXAMINATION: CT ABD+PEL W CON EXAM DATE: [...] Montez Molina MD CT Final Result * C AURIS,PCR,AXILLA/GROIN,NARES (01/01/2025 12:50 PM CDT) KAMLA AURIS (CLARITA/GROIN) Not Detected Not Detected 01/04/2025 2:12 PM CDT [employer] RENATA REYEZ Comment: A Not Detected result [...] analytical performance characteristics have been determined by [employer] [place], [place]. It has not been cleared or approved by the U.S. Food and Drug Administration. This assay has been validated pursuant to the CLIA regulations and is used for clinical purposes. Test Performed by Juan F Thao, [employer] [facility], [address] [place], [place] Mike Mitchell M.D., Ph.D., Director of Laboratories , CLIA [id number] 01/01/2025 12:5 0 PM CDT us Montez Molina MD LABORATORY Final Result [facility] [address] [place] [address], [place] [phone] * (ABNORMAL) HEMOGLOBIN AND HEMATOCRIT (12/30/2024 1:49 PM CDT) HGB 7.9(L) 12.0 - 16.0 G/DL 12/30/2024 2:03 PM CDT [facility] HCT 28.0(L) 36.0 - 47.0 % 12/30/2024 2:03 PM CDT [facility] 12/30/2024 1:49 PM CDT us Montez Molina MD LABORATORY Final Result Performing Organization Address City/[facility]/ZIP Co de Phone Number [facility] [address] [place] [address], [place] [phone] * TRANSFUSE RED BLOOD CELLS (12/30/2024 11:22 AM CDT) Only the most recent of3 resultswithin the time period is included. Niru Diaz DO NURSING TREATMENT ORDERABLE S - BLOOD ADMIN Final Result * (ABNORMAL) PRO-BRAIN NATRIURETIC PEPTIDE (12/30/2024 2:31 AM CDT) PRO-B TYPE NATRIURETIC PEPTIDE 3,721(H) <125 PG/ML 12/30/2024 5:01 AM CDT [facility] Comment: AGE INDEPENDENT: <300 PG/ML HAS [...] us Saima Hager MD LABORATORY Final Result [facility] [address] [place] [address], [place] [phone] * USE ECHO [employer] (12/29/2024 12:25 PM CDT) Anatomical Region Laterality Modality Cardiac Echocardiogram 12/29/2024 9:54 AM CDT Narrative 12/29/2024 5:31 PM CDT Echocardiography Report Pat.Name: MMAI TAYLOR Pat.ID: [id number] .Date: 12/29/2024 Refer.MD: SAIMA HAGER Exam Time: 9:54:00 AM Study Type:ECHO WITH DOPPLER LIMITED Height: 67 in Weight: 170 lb BSA: 1.89 m2 Age: 11 1960,64Y Sex: F BP: 143/66 HR: 83 bpm Sonogrphr: Alicia Norwood [facility] Pat. Stat.:Inpatient Room: [facility] CPT - 4: 75881 [id number] Reason for Study:assess intracavitary gradient (LVOT), bubble [...] 12/29/2024 Echocardiography Report Pat.Name: MAMI TAYLOR Pat.ID: [id number] .Date: 12/29/2024 Refer.MD: SAIMA HAGER Exam Time: 9:54:00 AM Study Type:ECHO WITH DOPPLER LIMITED Height: 67 in Weight: 170 lb BSA: 1.89 m2 Age: 11 1960,64Y Sex: F BP: 143/66 HR: 83 bpm Sonogrphr: Alicia Norwood [facility] Pat. Stat.:Inpatient Room: [facility] CPT - 4: 69763 [phone] Reason for Study:assess intracavitary gradient (LVOT), bubble [...] resultswithin the time period is included. PATHOLOGY [facility] Department of Laboratory Medicine [address] [place] [address] , extension [phone] Pathology Report Surgical Pathology Report Name: MAMI TAYLOR Specimen #: [id number] Age: 11 1960 (Age: 64) Location: [facility] Sex: F Procedure Date: 12/28/2024 Hospital #: [id number] Date Received: 12/30/2024 Date Reported: 12/31/2024 Provider: [...] Gross examination (when applicable) was performed at [facility], [address] [place] [address]. This case was interpreted and signed out at [facility], [address] [place] [address]. Electronically Signed Out GARCÍA GROVES MD [facility] TISSUE (OTHER (type in comments)) 12/28/2024 1:30 PM CDT us Niru Diaz DO PATHOLOGY/CYTOLOGY ORDERABL ES Final Result [facility] [address] [place] [address], [phone] * USE ECHOCARDIOGRAM W CON (12/27/2024 2:05 PM CDT) Anatomical Region Laterality Modality NA Echocardiogram 12/27/2024 1:35 PM CDT Narrative 12/27/2024 2:54 PM CDT Echocardiography Report Pat.Name: MAMI TAYLOR Pat.ID: [id number] .Date: 12/27/2024 Refer.MD: [id number] NONE PROVIDER EWDPROV EWDPROV Exam Time: 1:35:00 PM Study Type:ECHO WITH CARDIAC DOPPLER COMP Height: 67 in Weight: 170 lb BSA: 1.89 m2 Age: 11 1960,64Y Sex: F BP: 118/53 HR: 81 bpm Sonogrphr: HAKEEM Briggs Pat. Stat.:Inpatient Room: [facility] CPT - 4: 88636 Reason for Study:Evaluate for thrombus/vegetations Procedures: 2D, [...] Mass 2D Value 159 g LV Mass [id number] Value 84.1 g/m2 Med MA LV Peak [...] 2.8 cm Right Ventricle 2.3 cm [place] 8.3 cm MMODE TA Tricuspid Annul 2.09 cm <Electronic Signature> 12/27/2024 02:54 PM Gerri Mcneal M.D. Procedure Note Gerri Mcneal, DO - 12/27/2024 Echocardiography Report Pat.Name: MAMI TAYLOR Rhea.ID: [id number] .Date: 12/27/2024 Refer.MD: [id number] NONE PROVIDER EWDPROV EWDPROV Exam Time: 1:35:00 PM Study Type:ECHO WITH CARDIAC DOPPLER COMP Height: 67 in Weight: 170 lb BSA: 1.89 m2 Age: 11 1960,64Y Sex: F BP: 118/53 HR: 81 bpm Sonogrphr: HAKEEM Briggs Pat. Stat.:[facility] CPT - 4: 75246 Reason for Study:Evaluate for thrombus/vegetations Procedures: 2D, [...] Mass 2D Value 159 g LV Mass [id number] Value 84.1 g/m2 Med MA LV Peak [...] 2.8 cm Right Ventricle 2.3 cm [place] 8.3 cm MMODE TA Tricuspid Annul 2.09 cm <Electronic Signature> 12/27/2024 02:54 PM Silvan Omerovic, M.D. us Niru Diaz DO ECHO Final Resul t * (ABNORMAL) POCT ACUTE ARTERIAL PANEL (12/27/2024 10:45 AM CDT) Only the most recent of2 resultswithin the time period is included. SODIUM WHOLE BLOOD 139 138 - 146 mmol/L 12/27/2024 10:51 AM CDT [facility] POTASSIUM WHOLE BLOOD 4.7 3.5 - 4.9 mmol/L 12/27/2024 10:51 AM CDT [facility] CA IONIZED WH BLOOD 1.12 1.12 - 1.32 mmol/L 12/27/2024 10:51 AM CDT [facility] POC PH ARTERIAL 7.285(L) 7.35 - 7.45 12/27/2024 10:51 AM CDT [facility] POC PCO2 ARTERIAL 39.8 35.0 - 45.0 MMHG 12/27/2024 10:51 AM CDT [facility] POC PO2 ARTERIAL 115(H) 80 - 105 MMHG 12/27/2024 10:51 AM CDT [facility] POC HCO3 ARTERIAL 18.9(L) 22 - 26 MMOL/L 12/27/2024 10:51 AM CDT [facility] POC TCO2 ARTERIAL 20(L) 23 - 27 MMOL/L 12/27/2024 10:51 AM CDT [facility] POC BASE DEFICIT ARTERIAL 8(H) 0 - 2 MMOL/L 12/27/2024 10:51 AM CDT [facility] POC HEMATOCRIT 29(L) 38 - 51 % 12/27/2024 10:51 AM CDT [facility] TIME TEST WAS PERFORMED: 1045 12/27/2024 10:51 AM CDT [facility] 12/27/2024 10:4 5 AM CDT us Chidi Gallagher MD POCT ORDERABLES - DEVICE Final Result [facility] [address] [place] [address], [phone] * XR CHEST PORTABLE (12/27/2024 10:36 AM CDT) Anatomical Region Laterality Modality Chest Radiographic Mary ging 12/27/2024 1:44 PM CDT Impressions 12/27/2024 1:46 PM CDT IMPRESSION: The gastric tube is in the stomach. Referred By: PROVIDER NONE Interpreted By: Ayush Real MD, 12/27/2024 1:44 PM Narrative 12/27/2024 1:46 PM CDT [facility] [address] [place], [place] [address] EXAM: XR CHEST PORTABLE DATE: 12/27/2024 1033 hours No comparison INDICATION: Gastric tube placement. TECHNIQUE: One view FINDINGS: Endotracheal tube is about 6 cm above the eunice. Gastric tube is in the stomach. Enlarged heart and central pulmonary vessels. Mild ill-defined lung densities. Procedure Note Ayush Real MD - 12/27/2024 [facility] [address] [place], [place] [address] EXAM: XR CHEST PORTABLE DATE: 12/27/2024 1033 [...] - 2.0 MMOL/L 12/27/2024 10:52 AM CDT [facility] 12/27/2024 10:0 8 AM CDT us Chidi Gallagher MD LABORATORY Final Result [facility] [address] [place] [address], [phone] * Art Line (12/27/2024 6:56 AM CDT) Only the most recent of2 resultswithin the time period is included. Narrative Nathan Chicas MD - 12/27/2024 6:56 AM CDT Nathan [...] (CHG imbedding tegaderm) us Nathan Chicas MD [place] ANESTHESIA Final Result * TYPE & SCREEN (12/27/2024 5:54 AM CDT) UNITS ORDERED 4 12/30/2024 6:44 AM CDT [facility] ABO/RH O POSITIVE 12/27/2024 6:35 AM CDT [facility] ANTIBODY SCREEN NEGATIVE 6:35 AM CDT [facility] SAMPLE EXPIRATION 12/30/2024,2359 12/27/2024 5:58 AM CDT [facility] BLOOD UNIT NUMBER [id number] 12/27/2024 7:10 AM CDT [facility] PRODUCT: PC LEUKOPOOR 12/27/2024 7:10 AM CDT [facility] UNIT DIVISION 00 12/27/2024 7:10 AM CDT [facility] BLOOD UNIT STATUS TRANSFUSED,FINAL 12/28/2024 1:49 AM CDT [facility] ISSUE DATE/TIME 685884031233 025 1:49 AM CDT [facility] PRODUCT CODE [id number] 12/28/2024 1:49 AM CDT [facility] ABO/RH Unit O POS 12/28/2024 1:49 AM CDT [facility] ABO/RH UNIT ISBT CODE 5100 12/28/2024 1:49 AM CDT [facility] BLOOD UNIT EXPIRATION DATE [id number] 12/28/2024 1:49 AM CDT [facility] TRANSFUSION STATUS OK TO TRANSFUSE 12/27/2024 7:10 AM CDT [facility] CROSSMATCH COMPATIBLE-EXM 12/27/2024 7:10 AM CDT [facility] BLOOD UNIT NUMBER [id number] 12/27/2024 7:10 AM CDT [facility] PRODUCT: PC LEUKOPOOR 12/27/2024 7:10 AM CDT [facility] UNIT DIVISION 00 12/27/2024 7:10 AM CDT [facility] BLOOD UNIT STATUS TRANSFUSED,FINAL 12/28/2024 1:49 AM CDT [facility] ISSUE DATE/TIME 242552753546 025 1:49 AM CDT [facility] PRODUCT CODE [id number] 12/28/2024 1:49 AM CDT [facility] ABO/RH Unit O POS 12/28/2024 1:49 AM CDT [facility] ABO/RH UNIT ISBT CODE 5100 12/28/2024 1:49 AM CDT [facility] BLOOD UNIT EXPIRATION DATE [id number] 12/28/2024 1:49 AM CDT [facility] TRANSFUSION STATUS OK TO TRANSFUSE 12/27/2024 7:10 AM CDT [facility] CROSSMATCH COMPATIBLE-EXM 12/27/2024 7:10 AM CDT [facility] BLOOD UNIT NUMBER [id number] 12/30/2024 8:35 AM CDT [facility] PRODUCT: PC LEUKOPOOR 12/30/2024 8:35 AM CDT [facility] UNIT DIVISION 00 12/30/2024 8:35 AM CDT [facility] BLOOD UNIT STATUS TRANSFUSED,FINAL 12/31/2024 1:09 AM CDT [facility] ISSUE DATE/TIME [id number] 1:09 AM CDT [facility] PRODUCT CODE [id number] 12/31/2024 1:09 AM CDT [facility] ABO/RH Unit O POS 12/31/2024 1:09 AM CDT [facility] ABO/RH UNIT ISBT CODE 5100 12/31/2024 1:09 AM CDT [facility] BLOOD UNIT EXPIRATION DATE [id number] 12/31/2024 1:09 AM CDT [facility] TRANSFUSION STATUS OK TO TRANSFUSE 12/30/2024 8:35 AM CDT [facility] CROSSMATCH COMPATIBLE-EXM 12/30/2024 8:35 AM CDT [facility] 12/27/2024 5:54 AM CDT Angel Gonzalez MD BLOOD BANK TEST ORDERABLES Final Result [facility] [address] [place] [address], [phone] * (ABNORMAL) PROTIME/INR, VENOUS (PROTHROMBIN TIME) (12/27/2024 5:54 AM CDT) [facility] PROTIME 15.0(H) 9.4 - 12.5 SEC 12/27/2024 6:37 AM CDT [facility] INR 1.3(H) 0.8 - 1.1 12/27/2024 6:37 AM CDT [facility] 12/27/2024 5:54 AM CDT Niru Diaz DO LABORATORY Final Resul t Performing Organization Address [facility] de Phone Number [facility] [address] [place] [address], [phone] * CULTURE, BACTERIA BLOOD X2 (12/27/2024 5:53 AM CDT) [facility] SPEC DESCRIPTION BLOOD 12/27/2024 5:35 AM CDT [facility] SPECIAL REQUESTS NO SPECIAL REQUEST 12/27/2024 5:35 AM CDT [facility] CULTURE RESULT NO GROWTH 5 DAYS 01/01/2025 6:02 AM CDT [facility] BLOOD SPECIMEN OBTAINED FOR BLOOD CULTURE / Unknown 12/27/2024 5:53 AM CDT 12/27/2024 5:54 AM CDT Niru Diaz DO MICROBIOLOGY - GENERAL ORDE RABLES Final Result Performing Organization Address City/[facility] Co de Phone Number [facility] [address] [place] [address], [place] [phone] * (ABNORMAL) URINE DRUG SCREEN (TOXICOLOGY) (12/27/2024 5:42 AM CDT) [facility] PHENCYCLIDINE PCP (U) NEGATIVE NEGATIVE 12/27/2024 7:06 AM CDT [facility] BENZODIAZEPINES SCREEN (U) NEGATIVE NEGATIVE 12/27/2024 7:06 AM CDT [facility] COCAINE METABOLITES (U) NEGATIVE NEGATIVE 12/27/2024 7:06 AM CDT [facility] AMPHETAMINE (U) POSITIVE SCREEN RESULT, IF CONFIRMATION DESIRED PLEASE CONTACT LAB WITHIN ONE WEEK. (A) NEGATIVE 12/27/2024 7:06 AM CDT [facility] CANNABINOIDS SCREEN (U) NEGATIVE NEGATIVE 12/27/2024 7:06 AM CDT [facility] OPIATE SCREEN (U) POSITIVE SCREEN RESULT, IF CONFIRMATION DESIRED PLEASE CONTACT LAB WITHIN ONE WEEK. (A) NEGATIVE 12/27/2024 7:06 AM CDT [facility] BARBITURATES SCREEN (U) NEGATIVE NEGATIVE 12/27/2024 7:06 AM CDT [facility] URINE TOX COMMENT Unconfirmed screening results are to be used only for medical purposes. 12/27/2024 5:54 AM CDT [facility] CUTOFF CONCENTRATION (U) Cut-off Concentration for a positive result 12/27/2024 5:54 AM CDT [facility] Comment: Phencyclidine 25 ng/mL Benzodiazepines 200 ng/mL Cocaine 300 ng/mL Amphetamine 1000 ng/mL Cannabinoids 50 ng/mL Opiates 300 ng/mL Barbiturates 200 ng/mL URINE SPECIMEN / Unknown 12/27/2024 5:42 AM CDT us Niru Diaz DO URINE ORDERABLES Final Resu lt [facility] [address] [place] [address], [phone] * MAMMOGRAM GENERIC (11/30/2016 4:32 PM CDT) Anatomical Region Laterality Modality Other 11/30/2016 4:32 PM CDT 11/30/2016 4:32 PM CDT Narrative 11/30/2016 4:41 PM CDT MAMI TAYLOR ADMIT/SERVICE DATE: 11/18/16 ACCT: [id number] DISCHARGE DATE: : 1960 SEX: F ORD SITE: [facility] PT TYPE: REG CLI ORDERING MD: SHAN DUNBAR MD STUDY DATE REPORT # ORDER # EXT ORDER ID 11/18/16 [id number]; ; [id number]; [id number]; [id number] PROC CODE: AXILNVRT PROCEDURE DESCRIPTION: US AXILLA [...] IF CLINICALLY INDICATED. EXAMINATION: BILATERAL SCREENING MAMMOGRAM [id number], [id number] COMPARISON: OUTSIDE STUDY 07/29/2011. TISSUE DENSITY: THE [...] EXAMINATION: BILATERAL DIAGNOSTIC MAMMOGRAM WITH BILATERAL ULTRASOUND. [id number], [id number] CLINICAL HISTORY: BILATERAL AXILLARY PAIN COMPARISON: NONE [...] - 01/11/2018 MAMI TAYLOR ADMIT/SERVICE DATE:11/18/16 ACCT: [id number] DISCHARGE DATE: : 1960 SEX: F ORD SITE: [facility] PT TYPE: REG CLI ORDERING MD:SHAN DUNBAR MD STUDY DATE REPORT # ORDER # EXT ORDER ID 11/18/16 [id number]; [id number]; [id number]; [id number]; [id number] PROC CODE: AXILNVRT PROCEDURE DESCRIPTION: US AXILLA [...] IF CLINICALLY INDICATED. EXAMINATION: BILATERAL SCREENING MAMMOGRAM [id number], [id number] COMPARISON: OUTSIDE STUDY 07/29/2011. TISSUE DENSITY: THE [...] EXAMINATION: BILATERAL DIAGNOSTIC MAMMOGRAM WITH BILATERAL ULTRASOUND. [id number], [id number] CLINICAL HISTORY: BILATERAL AXILLARY PAIN COMPARISON: NONE [...] ELECTRONICALLY SIGNED BY: SHAN ACE 4:42 PM Shan Dunbar DO SCANNING Final Resul t * Colonoscopy (03/20/2009 12:00 AM PODIATRIC SURGEON) 03/20/2009 03/20/2009 Narrative [facility] TO EPIC CONVERSION - 03/20/2009 12:00 AM PODIATRIC SURGEON Documented hx of procedure Procedure Note Jaime Echevarria MD - 01/21/2018 Documented hx of procedure us Generic Conversion Md ECHEVARRIA GI PROCEDURE ORDERABLES Final Result [facility] TO EPIC CONVERSION from Last 3 Months or Most Recently Relevant to Health Maintenance Insurance [facility] [employer] Advance Directives * Full Code (Latest Code Status on File) Date Activated Date Inactivated Comments 01/13/2025 9:52 AM 01/14/2025 3:11 PM * Full Code Date Activated Date Inactivated Comments 01/12/2025 9:43 PM 01/13/2025 9:36 AM * Full Code Date Activated Date Inactivated Comments 12/27/2024 6:46 AM 01/05/2025 5:52 PM * Full Code Date Activated Date Inactivated Comments 12/27/2024 3:44 AM 12/27/2024 6:45 AM Care Teams Radar Scientist Relationship Specialty Start Date End Date Sumit Caballero MD [address] [place] [address] PCP - General INTERNAL MEDICINE 11/30/18
[2025-01-17 21:35] VITALS: BP 145/76; PULSE 84; RESP 15; TEMP 36.6; O2SAT 100
--- NOTE | 2025-01-17 21:49 | ED.GENADULT ---
HPI - General Adult General Chief complaint: Unspecified Stated complaint: Pain in Stoma/Surgery Area Source: patient Mode of arrival: ambulatory Limitations: no limitations History of Present Illness HPI narrative: 64-year-old female with a history of hypertension, dyslipidemia, emphysema, chronic back pain developed abdominal pain/ischemic bowel on 12/26/2024 for which he was transferred to [facility] where she had a left hemicolectomy and colostomy. The patient return to the ED on 01/07/2025 for abdominal pain and was noted to have a possible dissection of the abdominal aorta for which she was transferred to [facility]. She was evaluated by vascular surgery and noted that she did not have dissection. The patient presented on 01/11/2025 for cellulitis pain around the colostomy site for which she was prescribed Levaquin. 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 The patient presents today with --pain around the stomal site. Ostomy is functioning --diffuse abdominal pain--pain is continuous. No exacerbating or relieving factors. No radiation of the pain. No fever or chills. No fever or chills. Patient has had ongoing abdominal pain. She ran out of her Percocet and would like to have some pain medication. Onset (ago): week(s) Location: abdomen Radiation: non-radiation Severity: severe Quality: aching Pain Consistency: constant Relieving factors: none Exacerbating factors: none Associated symptoms: denies other symptoms Treatments prior to arrival: none Related Data Home Medications ?Medication ?Instructions ?Recorded ?Confirmed ?Last Taken ?Type lisinopril 20 mg tablet 10 mg PO HS 11/03/19 01/13/25 Unknown History celecoxib 100 mg capsule mg PO DAILY 01/13/25 01/13/25 Unknown History metoprolol tartrate 25 mg tablet mg PO DAILY 01/13/25 01/13/25 Unknown History Allergies Allergy/AdvReac Type Severity Reaction Status Date / Time Penicillins Allergy Intermediate Hives Verified 01/13/25 15:48 trimethobenzamide (Tigan) Allergy Intermediate Vomiting Verified 01/13/25 15:48 varenicline (Chantix) Allergy Intermediate Vomiting Verified 01/13/25 15:48 NSAIDS (Non-Steroidal Allergy Mild abdominal Verified 01/13/25 15:48 Anti-Inflamma pain PENICILLIN Allergy Hives Uncoded 01/13/25 15:48 TRIMETHOBENZAMIDE HCL Allergy Unknown Uncoded 01/13/25 15:48 Review of Systems Review of Systems: All systems reviewed & are unremarkable except as noted in HPI and below Constitutional: Constitutional: Reports as per HPI, Reports no additional constitutional complaints and Reports anorexia Eyes: Eyes: Reports as per HPI and Reports no additional eye complaints ENT: Reports system reviewed and no additional complaints, except as documented and Reports as per HPI Cardiovascular: Cardiovascular: Reports as per HPI and Reports no additional cardiovascular complaints Respiratory: Respiratory: Reports as per HPI, Reports no additional respiratory complaints and Reports no additional respiratory complaints Gastrointestinal: Gastrointestinal: Reports as per HPI, Reports no additional gastrointestinal complaints and Reports abdominal pain Genitourinary: Genitourinary: Reports no additional female genitourinary complaints and Reports as per HPI Musculoskeletal: Musculoskeletal: Reports no additional musculoskeletal complaints and Reports as per HPI Integumentary/Breasts: Skin/Breast: Reports system reviewed and no additional complaints, except as docu and Reports as per HPI Neurologic: Reports system reviewed and no additional complaints, except as documented and Reports as per HPI Psychiatric: Psychiatric: Reports no additional psychiatric complaints and Reports as per HPI Endocrine: Endocrine: Reports no additional endocrine complaints and Reports as per HPI Hematologic/Lymphatic: Hematologic/Lymphatic: Reports no additional hematologic/lymphatic complaints and Reports as per HPI Allergic/Immunologic: Allergic/Immunologic: Reports no additional allergic/immunologic complaints and Reports as per HPI PMFSH Past Medical History Medical History Emphysema lung Hyperlipidemia Hypertension Family History Family History Father Family history of type 2 diabetes mellitus Hypertension Mother Hypertension Sibling No problems noted. Social History Social History Smoking status: Current every day smoker Tobacco type: cigarettes Second hand tobacco smoke exposure: No Alcohol intake: never Substance use: never Do You Feel Safe in your Home?: Yes Lack of Transportation: No Lack of Food: Never True Current Housing: I Have Housing Concerned About Future Housing: No Difficulty Paying Gas/Electric Bills: No Difficulty Paying for Meds: No Currently Unemployed: No Difficulty w/ Childcare or Family Care: No Living arrangements: with family Gender identity (if verbalized by the patient): Female Sexual Orientation (if Verbalized by the Patient): Straight or Heterosexual Spiritual care concerns: No Agree to blood products: Yes Exam Const: General: cooperative, healthy appearing and comfortable Nutritional Appearance: average body habitus HENMT: Head: normal to inspection, No palpable skull fracture present, normocephalic and atraumatic Ears: hearing grossly normal bilaterally and external ears normal Face/Nose/Sinus: Normal external nose present and Normal nares present Face and sinus: normal facial exam, sinuses nontender and face symmetric Mouth: Yes Normal oral and palatal mucosa present, Yes lip normal and Yes tongue normal Throat: posterior oropharynx normal Eyes: General: appearance normal, both eyes and all related structures Alignment and Position: alignment normal Periorbital: periorbital findings normal Neck: Neck: normal visual inspection, full ROM, no lymphadenopathy and no meningeal signs Chest: Chest palpation & inspection: normal inspection of the chest Resp: Auscultation: diminished lung sounds Cardio: Palpation: normal PMI Rate: regular rate Rhythm: regular rhythm Heart sounds: S1 normal heart sound present and S2 normal heart sound present GI: Inspection: other (Midline abdominal incision looks healthy. No drainage.) GI Palp: Yes abdominal tenderness and Yes Other GI palpation findings present (Patient has diffuse tenderness without any rigidity/rebound.) Other: Ostomy--looks red and healthy. No infection of the surrounding skin. Ostomy is functioning. : General: Yes no CVA tenderness Back/Spine/Pelvis: Back: no CVA tenderness Skin: General skin exam: normal color, no rashes or lesions noted, elasticity normal and turgor normal Neuro: General: oriented to person, oriented to place and oriented to time Extrem: General: normal to inspection, full ROM, capillary refill normal and normal exam except as noted Psych: Appearance: grossly normal and well kempt Mental Status: mental status grossly normal Speech and movement: Normal speech and movement present Course Course Emergency Course: Status post hemicolectomy/colostomy for ischemic bowel Chronic abdominal pain Vital Signs Vital signs: Vital Signs Temperature 36.6 C 01/17/25 21:35 Pulse Rate 84 01/17/25 21:35 Respiratory Rate 15 01/17/25 21:35 Blood Pressure 145/76 H 01/17/25 21:35 Pulse Oximetry 100 01/17/25 21:35 Oxygen Delivery Room Air 01/17/25 21:35 Temperature 36.6 C 01/17/25 21:35 Pulse Rate 84 01/17/25 21:35 Respiratory Rate 15 01/17/25 21:35 Blood Pressure 145/76 H 01/17/25 21:35 Pulse Oximetry 100 01/17/25 21:35 Oxygen Delivery Room Air 01/17/25 21:35 Medical Decision Making MDM Narrative Medical decision making narrative: Chronic abdominal pain Differential Diagnosis Differential Diagnosis: Colitis, postoperative pain Vital Signs Vital Signs: Vital Signs Temperature 36.6 C 01/17/25 21:35 Pulse Rate 84 01/17/25 21:35 Respiratory Rate 15 01/17/25 21:35 Blood Pressure 145/76 H 01/17/25 21:35 Pulse Oximetry 100 01/17/25 21:35 Oxygen Delivery Room Air 01/17/25 21:35 Temperature 36.6 C 01/17/25 21:35 Pulse Rate 84 01/17/25 21:35 Respiratory Rate 15 01/17/25 21:35 Blood Pressure 145/76 H 01/17/25 21:35 Pulse Oximetry 100 01/17/25 21:35 Oxygen Delivery Room Air 01/17/25 21:35 Discharge Plan Discharge Clinical Impression: Postoperative abdominal pain Patient Disposition: Home Condition: Stable Instructions: Antibiotic Form, Pain Management After Surgery (DC) Patient Language: Romanian Prescriptions: No Action levofloxacin 500 mg tablet 500 mg PO DAILY Qty: 7 0RF oxycodone-acetaminophen [Percocet] 5-325 mg tablet 1 tablet PO Q6H PRN (Reason: pain) Qty: 20 0RF lisinopril 20 mg tablet 10 mg PO HS celecoxib 100 mg capsule PO DAILY metoprolol tartrate 25 mg tablet PO DAILY mupirocin [Centany] 2 % ointment 1 applic topical BID Qty: 22 0RF Follow-up/Referrals: Sarika Dewey NP [Primary Care Provider, Family Practice] Time of Disposition: 22:35
[2025-01-17] MEDS: HYDROmorphone HCL INJ (*CRX) 2 MG/ML VIAL 1 MG IM (22:41)
[2025-01-17] MEDS: ONDANSETRON HCL ODT 4 MG TABLET PO (22:42)
--- NOTE | 2025-01-17 22:52 | PC.NURSE ---
NEW COLOSTOMY BAG PLACED.
[2025-01-17 23:00] VITALS: BP 136/68; PULSE 80; RESP 18; O2SAT 96
== END 2025-01-17 23:00 | disposition home or self-care (01) ==
PROVIDERS: Emergency Provider Internal Medicine Critical Care Medicine; PCP Nurse Practitioner Family
DX: G89.18 Other acute postprocedural pain (principal); R10.9 Unspecified abdominal pain; J43.9 Emphysema, unspecified; E78.5 Hyperlipidemia, unspecified; I10 Essential (primary) hypertension; F17.210 Nicotine dependence, cigarettes, uncomplicated; Z93.3 Colostomy status
CPT/HCPCS: 96372; 99283; A9270; J1171

== ENCOUNTER 2025-01-18 08:46 | Emergency (ER) | payer OTHER, SELFPAY ==
--- OUTSIDE RECORDS SUMMARY | 2014-07-04 03:28 | XMS_ITS | Continuity of Care Document ---
Author Organization [facility] Address [address] [facility] [address] [place] [address] Phone Care Team Providers Care Mine Superintendent Name Role Phone Roni Courtney MD Unavailable [...] Diagnoses Date Provider Providers Copied on Encounter [facility], [address], [facility], tel:[phone] [facility] No Information 5 Roz Tamayo. 1 [place], [place], [address]. tel:[phone] OFFICE/OUTPAT IENT VISIT EST [facility], [address], [address], tel:[phone] [facility] f/u mri (chief complaint) Disorder of bursae and tendons in shoulder regionOther affections of shoulder region, not elsewhere classified 5 Roz Tamayo. 621 [place], [place], [address]. tel:[phone] OFFICE/OUTPAT IENT VISIT [facility], [address] [facility], [place], [address], [place] tel:[phone] [facility] Disorder of bursae and tendons in shoulder region Teresa. [address] [facility] [address], [place], [place], [address]. tel:[phone] Family History Family Member Type Diagnosis Age [...]
--- OUTSIDE RECORDS SUMMARY | 2014-07-04 03:28 | XMS_ITS | Continuity of Care Document ---
Author Organization [facility] Address [address] [facility] [address] [place] [address] Phone Care Team Providers Care Evaluation Specialist Name Role Phone Roni Courtney MD [...] Diagnoses Date Provider Providers Copied on Encounter [facility], [address], [facility], tel:[phone] [facility] No Information 5 Roz Tamayo. 1 [place], [place], [address]. tel:[phone] OFFICE/OUTPAT IENT VISIT EST [facility], [address], [address], tel:[phone] [facility] f/u mri (chief complaint) Disorder of bursae and tendons in shoulder regionOther affections of shoulder region, not elsewhere classified 5 Roz Tamayo. 621 [place], [place], [address]. tel:[phone] OFFICE/OUTPAT IENT VISIT [facility], [address] [facility], [place], [address], [place] tel:[phone] [facility] Disorder of bursae and tendons in shoulder region Teresa. [address] [facility] [address], [place], [place], [address]. tel:[phone] Family History Family Member Type Diagnosis Age [...]
[2025-01-18 08:47] VITALS: BP 128/73; PULSE 98; RESP 20; TEMP 36.4; O2SAT 98
--- OUTSIDE RECORDS SUMMARY | 2025-01-18 08:49 | XMS_ITS | Clinical Summary ---
Author Organization [facility] Address [address] [place] [address] Care Team Providers Care Equipment Service Engineer Name Role Phone Sumit Caballero MD Primary Care Provider [phone] Allergies Active Allergy Reactions Criticality Noted Date [...] 01/17/2025 12:00 PM CDT Home Care Visit [facility] Home Care [facility] [address] [place] [address] Alexus Arreaga RN SN HOME VISIT 01/16/2025 9:45 AM CDT Home Care Visit [facility] Home Care [facility] [address] [place] [address] Grace Farmer, OT OT INITIAL EVALUATION 01/14/2025 4:31 PM CDT - 01/14/2025 10:46 PM CDT Emergency [facility] Emergency [address] [place] [address] Ez Reardon, Isabel Mccauley MD Medical Problem Discharge Disposition: Home or Self Care (Routine Discharge) 01/14/2025 1:00 PM CDT Home Care Visit [facility] [address] [place] [address] Sarika Villeda, WOC RN HH/HSPC ORIENTATION VISIT 01/14/2025 1:00 PM CDT Home Care Visit [facility] [address] [place] [address] Niru Juarez LPN SN HOME VISIT 01/14/2025 11:00 AM CDT Home Care Visit [facility] [address] [place] [address] Kristine Barreto, PT PT INITIAL EVALUATION 01/14/2025 Travel 01/14/2025 Home Care Visit [facility] [address] [place] [address] Aida Foss, RN SN TELEPHONE CALL 01/12/2025 Home Care Visit [facility] [address] [place] [address] Sarika Abel, RN CASE COMMUNICATION 01/11/2025 11:00 AM CDT Home Care Visit [facility] [address] [place] [address] Aida Foss, RN SN OASIS START OF CARE 01/11/2025 Plan of Care Documentation [facility] [address] [place] [address] 01/08/2025 8:45 AM CDT Home Care Visit [facility] [address] [place] [address] Artie Moulton RN SN NON ADMIT SOC 01/08/2025 4:39 AM CDT - 01/08/2025 7:41 AM CDT Emergency [facility] Emergency [address] [place] [address] Carlos Ricardo MD Surgery Follow Up Discharge Disposition: Home or Self Care (Routine Discharge) 01/08/2025 Travel 01/07/2025 1:15 PM CDT Home Care Visit [facility] Care [facility] [address] [place] [address] Maribel Sagastume RN SN NON ADMIT SOC 12/28/2024 12:34 PM CDT Anesthesia Event [facility] OR [address] [place] [address] Kaushik Burleson MD 12/28/2024 11:25 AM CDT - 12/28/2024 3:16 PM CDT Surgery [facility] OR [address] [place] [address] Niru Diza, DO RE-LOOK LAPAROTOMY with creation of end colostomy 12/27/2024 6:23 AM CDT Anesthesia Event [facility] OR [address] [place] [address] Shan Mittal MD L[place]unesse, Kaylie [facility] 12/27/2024 5:55 AM CDT - 12/27/2024 7:47 AM CDT Surgery [facility] OR [address] [place] [address] Niru Diaz, DO LAPAROTOMY EXPLORATORY WITH MOBILIZATION OF SPLENIC FLEXURE AND DESCENDING COLON RESECTION, ABTHERA WOUND VAC PLACEMENT 12/27/2024 2:43 AM CDT - 01/05/2025 3:46 PM CDT Hospital Encounter [facility] [address] [place] [address] Angel Gonzalez MD Imam, Michael M, DO [...] materials from doctor or pharmacy Never 01/11/2025 [facility] Utilities Answer Date Recorded In the past 12 months has th e App Partner, gas, oil, or water [employer] threatened to shut off services in your [...] any time in the past 12 [facility], were you homeless or living in a fci (including now)? No 12/27/2024 Comments No Sex [...] st Contact Info) Description 01/21/2025 4:30 AM COUNTY TREASURER Appointment [facility] [address] [place] [address] Sarika Villeda [facility] RN 01/21/2025 1:15 PM COUNTY TREASURER Appointment [facility] [address] [place] [address] Niru Juarez LPN 01/24/2025 8:00 AM COUNTY TREASURER Appointment [facility] [address] [place] [address] Niru Juarez LPN 01/28/2025 12:00 PM COUNTY TREASURER Appointment [facility] [address] [place] [address] Alexus Arreaga, RN 02/04/2025 12:00 PM COUNTY TREASURER Appointment [facility] [address] [place] [address] Alexus Arreaga, RN 02/11/2025 11:30 AM COUNTY TREASURER Appointment [facility] [address] [place] [address] Alexus Arreaga, RN 02/18/2025 9:00 AM COUNTY TREASURER Appointment [facility] [address] [place] [address] Alexus Arreaga, RN 02/25/2025 8:00 AM COUNTY TREASURER Appointment [facility] [address] [place] [address] Alexus Arreaga, RN 03/04/2025 8:00 AM COUNTY TREASURER Appointment [facility] [address] [place] [address] Alexus Arreaga, RN 03/11/2025 8:00 AM COUNTY TREASURER Appointment [facility] [address] [place] [address] Alexus Arreaga, RN Health Maintenance Due Date [...] #3ADDED ON 12/27/2024 @ 1833[facility]30 POCT GLUCOSE - DOCKED DEVICE [...] PM CDT COLONOSCOPY Routine 03/20/2009 12:00 AM COUNTY TREASURER from Last 3 Months or Most Recently Relevant to Health Maintenance Results * (ABNORMAL) URINALYSIS (01/14/2025 8:27 PM CDT) Only the most recent of2 resultswithin the time period is included. COLOR (U) LIGHT YELLOW 01/14/2025 9:[address] [facility] TRANSPARENCY CLEAR 01/14/2025 9:[address] [facility] SPECIFIC GRAVITY (U) 1.032 1.002 - 1.035 01/14/2025 9:[address] [facility] U PH 6.5 5 - 8 01/14/2025 9:[address] [facility] PROTEIN RANDOM (U) NEGATIVE NEGATIVE 01/14/2025 9:[address] [facility] GLUCOSE (U) NEGATIVE NEGATIVE MG/DL 01/14/2025 9:[address] [facility] KETONES MG/DL (U) NEGATIVE NEGATIVE 01/14/2025 9:[address] [facility] BILIRUBIN (U) NEGATIVE NEGATIVE 01/14/2025 9:[address] [facility] BLOOD (U) NEGATIVE NEGATIVE 01/14/2025 9:[address] [facility] NITRITES NEGATIVE NEGATIVE 01/14/2025 9:[address] [facility] UROBILINOGEN NORMAL 0 - 1 EU/DL 01/14/2025 9:[address] [facility] LEUKOCYTES (U) TRACE(A) NEGATIVE 01/14/2025 9:[address] [facility] RBC/HPF 1 0 - 3 /HPF 01/14/2025 9:[address] [facility] WBC/HPF 4 0 - 6 /HPF 01/14/2025 9:[address] [facility] BACTERIA (U) NONE /HPF 01/14/2025 9:[address] [facility] SQUAMOUS EPITHELIALS 2 01/14/2025 9:[address] [facility] URINE SPECIMEN OBTAINED BY CLEAN CATCH PROCEDURE / Unknown 01/14/2025 8:27 PM CDT us Philip Alberto DOUBLING MACHINE OPERATOR URINE ORDERABLES Final Resu lt Performing Organization Address City/[facility]/ZIP Co de Phone Number [facility] [address] [place] [address] [phone] * CULTURE URINE (01/14/2025 8:27 PM CDT) SPEC DESCRIPTION URINE CLEAN CATCH 01/14/2025 8:[address] [facility] SPECIAL REQUESTS NO SPECIAL REQUEST 01/14/2025 8:[address] [facility] CULTURE RESULT NO GROWTH (< OR = 1,000 CFU/ML) 01/16/2025 11:[address] [facility] URINE SPECIMEN OBTAINED BY CLEAN CATCH PROCEDURE / Unknown 01/14/2025 8:27 PM CDT 01/14/2025 8:59 PM CDT Philip Alberto DOUBLING MACHINE OPERATOR MICROBIOLOGY - GENERAL ORDE RABLES Final Result Performing Organization Address City/[facility]/ZIP Co de Phone Number [facility] [address] [place] [address], [place] [phone] * TROPONIN, QUANT (01/14/2025 8:00 PM CDT) Only the most recent of5 resultswithin the time period is included. TROPONIN I HIGH SENSITIVITY 49 0 - 53 ng/L 01/14/2025 9:[address] [facility] 01/14/2025 8:00 PM CDT us Isabel Lan MD LABORATORY Final Result [facility] [address] [place] [address], [place] [phone] * CTA ABD+PEL (01/14/2025 7:25 PM CDT) [...] 7:40 PM Narrative 01/14/2025 7:56 PM CDT [facility] [address] [place], [place] [address] EXAMINATION: CTA abdomen and pelvis with contrast [...] Procedure Note Bebeto Wolff MD - 01/14/[address] [address] EXAMINATION: CTA abdomen and pelvis with contrast [...] arterial vasculature was created on separate workstation [employer]. Automated exposure control was utilized for dose [...] time period is included. ECG QT 364 [facility] [place] [facility] ECG QTC 434 [facility] [place] [facility] 01/14/2025 6:31 PM CDT Narrative [facility] [place] [facility] - 01/15/2025 6:14 AM CDT [facility] Test Date: 2025-01-14 Pat Name: MAMI MENENDEZPAMagdalena Department: 70 Room: EXAM CC Gender: Female Manager Estate: : 1960 Requested By: EZ REARDON Order Number: [id number] Reading MD: Radha Nixon Measurements Intervals Severance Rate: 85 P: 38 AK: 167 QRS: 15 QRSD: 94 T: 33 QT: 364 QTc: 434 Interpretive Statements SINUS RHYTHM POSSIBLE RIGHT VENTRICULAR CONDUCTION DELAY ST DEVIATION AND MODERATE T-WAVE ABNORMALITY, CONSIDER LATERAL ISCHEMIA Procedure Note Radha Nixon MD - 01/15/2025 [facility] Test Date: 2025-01-14 Pat Name: MAMI MENENDEZPAMagdalena Department: 70 Room: EXAM CC Gender: Female Manager Estate: : 1960 Requested By: EZ REARDON Order Number: [id number] Reading MD: Radha Nixon Measurements Intervals Severance Rate: 85 P: 38 AK: 167 QRS: 15 QRSD: 94 T: 33 QT: 364 QTc: 434 Interpretive Statements SINUS RHYTHM POSSIBLE RIGHT VENTRICULAR CONDUCTION DELAY ST DEVIATION AND MODERATE T-WAVE ABNORMALITY, CONSIDER LATERAL ISCHEMIA us Ez Reardon DO ECG ORDERABLES Final Resul t [facility] * LACTIC ACID W REFLEX (SEPSIS) (01/14/2025 5:04 PM CDT) Only the most recent of3 resultswithin the time period is included. LACTIC ACID VENOUS 1.5 0.4 - 2.0 MMOL/L 01/14/2025 5:[address] [facility] 01/14/2025 5:04 PM CDT us Philip Alberto DOUBLING MACHINE OPERATOR LABORATORY Final Resul t [facility] [address] [place] [address], [id number] * (ABNORMAL) COMPREHENSIVE METABOLIC PANEL (01/14/2025 5:04 PM CDT) Only the most recent of2 resultswithin the time period is included. Pathologist [facility] SODIUM S/P/B 138 136 - 145 MMOL/L 01/14/2025 5:[address] [facility] POTASSIUM S/P/B 3.8 3.5 - 5.1 MMOL/L 01/14/2025 5:[address] [facility] CHLORIDE S/P/B 107 97 - 115 MMOL/L 01/14/2025 5:[address] [facility] CO2 26.3 21.0 - 32.0 MMOL/L 01/14/2025 5:[address] [facility] GLUCOSE 108(H) 74 - 106 MG/DL 01/14/2025 5:[address] [facility] BUN 14 7 - 18 MG/DL 01/14/2025 5:[address] [facility] CREATININE S/P/B 0.78 0.55 - 1.02 MG/DL 01/14/2025 5:[address] [facility] CALCIUM S/P/B 8.5 8.5 - 10.1 MG/DL 01/14/2025 5:[address] [facility] BILIRUBIN TOTAL S/P/B 0.2 0.2 - 1.0 MG/DL 01/14/2025 5:[address] [facility] ALKALINE PHOSPHATASE S/P/B 352(H) 50 - 130 U/L 01/14/2025 5:[address] [facility] AST 26 15 - 37 U/L 01/14/2025 5:[address] [facility] ALT 24 13 - 56 U/L 01/14/2025 5:[address] [facility] TOTAL PROTEIN S/P/B 6.8 6.4 - 8.2 G/DL 01/14/2025 5:[address] [facility] ALBUMIN S/P/B 2.8(L) 3.4 - 5.0 G/DL 01/14/2025 5:[address] [facility] ANION GAP 4.7 2.0 - 10.0 MMOL/L 01/14/2025 5:[address] [facility] OSMOLALITY (CALC) 287 MOSM/KG 025 5:[address] [facility] Comment:REFERENCE RANGE NOT ESTABLISHED GFR ESTIMATE 84(L) >90 ML/MIN/1. 73 M2 01/14/2025 5:[address] [facility] GFR NOTES GFR REFERENCE S: 01/14/2025 5:[address] [facility] Comment: THE ESTIMATED GFR IS [...] 01/14/2025 5:04 PM CDT us Philipdorina Alberto DOUBLING MACHINE OPERATOR LABORATORY Final Resul t [facility] [address] [place] [address], [phone] * (ABNORMAL) CBC W/DIFF AUTOMATED (01/14/2025 5:04 PM CDT) Only the most recent of10 resultswithin the time period is included. Pathologist [facility] WBC 10.89(H) 4.00 - 10.80 x10'3/uL 01/14/2025 5:[address] [facility] RBC 4.10 4.10 - 5.40 x10'6/uL 01/14/2025 5:[address] [facility] HGB 9.0(L) 12.0 - 16.0 G/DL 01/14/2025 5:[address] [facility] HCT 31.2(L) 36.0 - 47.0 % 01/14/2025 5:[address] [facility] MCV 76.1(L) 78.0 - 100.0 FL 01/14/2025 5:[address] [facility] MCH 22.0(L) 27.0 - 31.0 PG 01/14/2025 5:[address] [facility] MCHC 28.8(L) 33.0 - 36.0 G/DL 01/14/2025 5:[address] [facility] RDW 31.5(H) 11.5 - 14.5 % 01/14/2025 5:[address] [facility] PLT 746(H) 150 - 350 x10'3/uL 01/14/2025 5:[address] [facility] MPV 8.5 7.4 - 10.4 FL 01/14/2025 5:[address] [facility] DIFFERENTIAL TYPE AUTOMATED DIFFERENTIAL 01/14/2025 5:[address] [facility] SEG NEUTROPHILS 67.2 % 5:[address] [facility] LYMPHOCYTES 19.7 % 01/14/2025 5:[address] [facility] MONOCYTES 7.0 % 01/14/2025 5:[address] [facility] EOSINOPHILS 4.5 % 01/14/2025 5:[address] [facility] BASOPHILS 1.1 % 01/14/2025 5:[address] [facility] IMMATURE GRANS % 0.5 % 01/15/20 5:[address] [facility] ABS. NEUTROPHILS 7.33 1.60 - 8.30 x10'3/uL 01/14/2025 5:[address] [facility] ABS. LYMPHOCYTES 2.14 0.80 - 4.70 x10'3/uL 01/14/2025 5:[address] [facility] ABS. MONOCYTES 0.76 0.00 - 1.50 x10'3/uL 01/14/2025 5:[address] [facility] ABS. EOSINOPHILS 0.49(H) 0.00 - 0.40 x10'3/uL 01/14/2025 5:[address] [facility] ABS. BASOPHILS 0.12 0.00 - 0.20 x10'3/uL 01/14/2025 5:[address] [facility] ABS. IMMATURE GRANULOCYTES 0.05(H) 0.00 - 0.03 x10'3/uL 01/14/2025 5:[address] [facility] ABS. NUCLEATED RBC'S 0.00 0.00 - 0.01 x10'3/uL 01/14/2025 5:[address] [facility] NRBC % 0.0 % 01/14/2025 5:[address] [facility] RBC MORPHOLOGY SLIDE REVIEWED 2024 5:[address] [facility] ANISO MARKED 01/14/2025 5:[address] [facility] POIKLO SLIGHT 01/14/2025 5:[address] [facility] HYPOCHROMASIA MODERATE 01/14/2025 5:[address] [facility] MICRO SLIGHT 01/14/2025 5:[address] [facility] POLY SLIGHT 01/14/2025 5:[address] [facility] OVALOCYTES PRESENT 01/14/2025 5:[address] [facility] TARGET CELLS PRESENT 01/14/2025 5:[address] [facility] ACANTHOCYTES PRESENT 01/14/2025 5:[address] [facility] PLT EST. INCREASED 01/14/2025 5:[address] [facility] 01/14/2025 5:04 PM CDT Philip Alberto DOUBLING MACHINE OPERATOR LABORATORY Final Resul t Performing Organization Address [place]/[facility] Co de Phone Number [facility] [address] [place] [address], [phone] * (ABNORMAL) MAGNESIUM (01/14/2025 5:04 PM CDT) Only the most recent of9 resultswithin the time period is included. MAGNESIUM 1.5(L) 1.6 - 2.6 MG/DL 01/14/2025 5:[address] [facility] 01/14/2025 5:04 PM CDT Philip Alberto DOUBLING MACHINE OPERATOR LABORATORY Final Resul t Performing Organization Address [place]/[facility]/ZIP Co de Phone Number [facility] [address] [place] [address], [place] [phone] * LIPASE (01/14/2025 5:04 PM CDT) LIPASE 54 13 - 75 UNITS/L 01/14/2025 5:[address] [facility] 01/14/2025 5:04 PM CDT us Philip Alberto DOUBLING MACHINE OPERATOR LABORATORY Final Resul t [facility] [address] [place] [address], [phone] * (ABNORMAL) BASIC METABOLIC PANEL (01/04/2025 4:40 AM CDT) Only the most recent of8 resultswithin the time period is included. SODIUM S/P/B 138 136 - 145 MMOL/L 01/04/2025 5:[address] [facility] POTASSIUM S/P/B 4.4 3.5 - 5.1 MMOL/L 01/04/2025 5:[address] [facility] Comment:MILD HEMOLYSIS, RESU LT MAY BE AFFECTED. CHLORIDE S/P/B 103 97 - 115 MMOL/L 01/04/2025 5:[address] [facility] CO2 30.9 21.0 - 32.0 MMOL/L 01/04/2025 5:[address] [facility] GLUCOSE 122(H) 74 - 106 MG/DL 01/04/2025 5:[address] [facility] BUN 11 7 - 18 MG/DL 01/04/2025 5:[address] [facility] CREATININE S/P/B 0.52(L) 0.55 - 1.02 MG/DL 01/04/2025 5:[address] [facility] CALCIUM S/P/B 8.5 8.5 - 10.1 MG/DL 01/04/2025 5:[address] [facility] ANION GAP 4.1 2.0 - 10.0 MMOL/L 01/04/2025 5:[address] [facility] OSMOLALITY (CALC) 287 MOSM/KG 025 5:[address] [facility] Comment:REFERENCE RANGE NOT ESTABLISHED GFR ESTIMATE >90 >90 ML/MIN/1. 73 M2 01/04/2025 5:[address] [facility] GFR NOTES GFR REFERENCE S: 01/04/2025 5:[address] [facility] Comment: THE ESTIMATED GFR IS [...] us Montez Molina MD LABORATORY Final Result [facility] [address] [place] [address], [phone] * PHOSPHORUS, INORGANIC PHOSPHATE (01/04/2025 4:40 AM CDT) Only the most recent of8 resultswithin the time period is included. PHOSPHORUS 4.3 2.5 - 4.9 MG/DL 01/04/2025 5:[address] [facility] 01/04/2025 4:40 AM CDT us Montez Molina MD LABORATORY Final Result Performing Organization Address [place]/[facility] Co de Phone Number [facility] [address] [place] [address], [place] [phone] * (ABNORMAL) POCT glucose (01/03/2025 11:22 AM CDT) Only the most recent of26 resultswithin the time period is included. GLUCOSE POC 194(H) 70 - 109 01/03/2025 11:[address] [facility] 01/03/2025 11:2 2 AM CDT Montez Molina MD POCT ORDERABLES - DEVICE Final Result Performing Organization Address [place]/[facility] de Phone Number [facility] [address] [place] [address], [place] [phone] * CT ABD+PEL W CON (01/02/2025 11:10 [...] 1:36 PM Narrative 01/02/2025 1:56 PM CDT [address] [address] EXAMINATION: CT ABD+PEL W CON EXAM DATE: [...] Procedure Note Jim Blanco DO - 01/02/[address] [address] EXAMINATION: CT ABD+PEL W CON EXAM DATE: [...] Detected Not Detected 01/04/2025 2:12 PM CDT [employer] [facility]YEZ Comment: A Not Detected result [...] analytical performance characteristics have been determined by [employer] [place], [place]. It has not been cleared or approved by the U.S. Food and Drug Administration. This assay has been validated pursuant to the CLIA regulations and is used for clinical purposes. Test Performed by Juan F Th[facility], [employer] [facility] [place], [address] [place], [place] Mike Mitchell M.D., Ph.D., Director of Laboratories , CLIA [id number] 01/01/2025 12:5 0 PM CDT us Montez Molina MD LABORATORY Final Result [employer] [facility] [address] [place] [address], [place] [phone] * (ABNORMAL) HEMOGLOBIN AND HEMATOCRIT (12/30/2024 1:49 PM CDT) HGB 7.9(L) 12.0 - 16.0 G/DL 12/30/2024 2:[address] [facility] HCT 28.0(L) 36.0 - 47.0 % 12/30/2024 2:[address] [facility] 12/30/2024 1:49 PM CDT us Montez Molina MD LABORATORY Final Result Performing Organization Address City/[facility]/ZIP Co de Phone Number [facility] [address] [place] [address], [place] [phone] * TRANSFUSE RED BLOOD CELLS (12/30/2024 11:22 AM CDT) Only the most recent of3 resultswithin the time period is included. Niru Diaz DO NURSING TREATMENT ORDERABLE S - BLOOD ADMIN Final Result * (ABNORMAL) PRO-BRAIN NATRIURETIC PEPTIDE (12/30/2024 2:31 AM CDT) PRO-B TYPE NATRIURETIC PEPTIDE 3,721(H) <125 PG/ML 12/30/2024 5:[address] [facility] Comment: AGE INDEPENDENT: <300 PG/ML [...] us Saima Hager MD LABORATORY Final Result [facility] [address] [place] [address], [place] [phone] * USE ECHO Score The Board (12/29/2024 12:25 PM CDT) Anatomical Region Laterality Modality Cardiac Echocardiogram 12/29/2024 9:54 AM CDT Narrative 12/29/2024 5:31 PM CDT Echocardiography Report Pat.Name: MAMI TAYLOR Pat.ID: [id number] .Date: 12/29/2024 Refer.MD: SAIMA HAGER Exam Time: 9:54:00 AM Study Type:ECHO WITH DOPPLER LIMITED Height: 67 in Weight: 170 lb BSA: 1.89 m2 Age: 11 1960,64Y Sex: F BP: 143/66 HR: 83 bpm Sonogrphr: Alicia Norwood [facility] Pat. Stat.:Inpatient Room: [facility] CPT - 4: [id number] [phone] Reason for Study:assess intracavitary gradient (LVOT), bubble [...] 12/29/2024 Echocardiography Report Pat.Name: MAMI TAYLOR Pat.ID: [id number] .Date: 12/29/2024 Refer.MD: SAIMA HAGER Exam Time: 9:54:00 AM Study Type:ECHO WITH DOPPLER LIMITED Height: 67 in Weight: 170 lb BSA: 1.89 m2 Age: 11 1960,64Y Sex: F BP: 143/66 HR: 83 bpm Sonogrphr: Alicia Norwood [facility] Pat. Stat.:Inpatient Room: [facility] CPT - 4: [id number] Reason for Study:assess intracavitary gradient (LVOT), bubble [...] resultswithin the time period is included. PATHOLOGY [facility] Department of Laboratory Medicine [address] [place] [address] , extension [phone] Pathology Report Surgical Pathology Report Name: MAMI TAYLOR Specimen #: [id number] Age: 11 1960 (Age: 64) Location: [facility] Sex: F Procedure Date: 12/28/2024 Hospital #: [id number] Date Received: 12/30/2024 Date Reported: 12/31/2024 Provider: [...] Gross examination (when applicable) was performed at [facility], [address] [place] [address]. This case was interpreted and signed out at [facility], [address] [place] [address]. Electronically Signed Out GARCÍA GROVES MD [facility] TISSUE (OTHER (type in comments)) 12/28/2024 1:30 PM CDT us Niru Diaz DO PATHOLOGY/CYTOLOGY ORDERABL ES Final Result [facility] [address] [place] [address], [id number] * USE ECHOCARDIOGRAM W CON (12/27/2024 2:05 PM CDT) Anatomical Region Laterality Modality NA Echocardiogram 12/27/2024 1:35 PM CDT Narrative 12/27/2024 2:54 PM CDT Echocardiography Report Pat.Name: MAMI TAYLOR Pat.ID: [id number] .Date: 12/27/2024 Refer.MD: [id number] NONE PROVIDER EWDPROV EWDPROV Exam Time: 1:35:00 PM Study Type:ECHO WITH CARDIAC DOPPLER COMP Height: 67 in Weight: 170 lb BSA: 1.89 m2 Age: 11 1960,64Y Sex: F BP: 118/53 HR: 81 bpm Sonogrphr: HAKEEM Briggs Pat. Stat.:Inpatient Room: [facility] CPT - 4: 36747 Reason for Study:Evaluate for thrombus/vegetations Procedures: 2D, [...] Mass 2D Value 159 g LV Mass [id number] Value 84.1 g/m2 Med MA LV Peak [...] 2.8 cm Right Ventricle 2.3 cm Major Severance 8.3 cm MMODE TA Tricuspid Annul 2.09 cm <Electronic Signature> 12/27/2024 02:54 PM Gerri Mcneal M.D. Procedure Note Gerri Mcneal, DO - 12/27/2024 Echocardiography Report Pat.Name: MAMI TAYLOR Rhea.ID: [id number] .Date: 12/27/2024 Refer.MD: [id number] NONE PROVIDER EWDPROV EWDPROV Exam Time: 1:35:00 PM Study Type:ECHO WITH CARDIAC DOPPLER COMP Height: 67 in Weight: 170 lb BSA: 1.89 m2 Age: 11 1960,64Y Sex: F BP: 118/53 HR: 81 bpm Sonogrphr: HAKEEM Briggs Pat. Stat.:Inpatient Room: [facility] CPT - 4: 74070 Reason for Study:Evaluate for thrombus/vegetations Procedures: 2D, [...] Mass 2D Value 159 g LV Mass [id number] Value 84.1 g/m2 Med MA LV Peak [...] 2.8 cm Right Ventricle 2.3 cm Major Severance 8.3 cm MMODE TA Tricuspid Annul 2.09 cm <Electronic Signature> 12/27/2024 02:54 PM Silvan Omerovic, M.D. us Niru Diaz DO ECHO Final Resul t * (ABNORMAL) POCT ACUTE ARTERIAL PANEL (12/27/2024 10:45 AM CDT) Only the most recent of2 resultswithin the time period is included. SODIUM WHOLE BLOOD 139 138 - 146 mmol/L 12/27/2024 10:[address] [facility] POTASSIUM WHOLE BLOOD 4.7 3.5 - 4.9 mmol/L 12/27/2024 10:[address] [facility] CA IONIZED WH BLOOD 1.12 1.12 - 1.32 mmol/L 12/27/2024 10:[address] [facility] POC PH ARTERIAL 7.285(L) 7.35 - 7.45 12/27/2024 10:[address] [facility] POC PCO2 ARTERIAL 39.8 35.0 - 45.0 MMHG 12/27/2024 10:[address] [facility] POC PO2 ARTERIAL 115(H) 80 - 105 MM[facility] 12/27/2024 10:51 AM CDT [facility] POC HCO3 ARTERIAL 18.9(L) 22 - 26 MMOL/L 12/27/2024 10:[address] [facility] P[facility] TCO2 ARTERIAL 20(L) 23 - 27 MMOL/L 12/27/2024 10:[address] [facility] BASE DEFICIT ARTERIAL 8(H) 0 - 2 MMOL/L 12/27/2024 10:[address] [facility] P[facility] HEMATOCRIT 29(L) 38 - 51 % 12/27/2024 10:[address] [facility] TIME TEST WAS PERFORMED: 1045 12/27/2024 10:[address] [facility] 12/27/2024 10:4 5 AM CDT us Chidi Gallagher MD POCT ORDERABLES - DEVICE Final Result [facility] [address] [place] [address], [id number] * XR CHEST PORTABLE (12/27/2024 10:36 AM CDT) Anatomical Region Laterality Modality Chest Radiographic Mary ging 12/27/2024 1:44 PM CDT Impressions 12/27/2024 1:46 PM CDT IMPRESSION: The gastric tube is in the stomach. Referred By: PROVIDER NONE Interpreted By: Ayush Real MD, 12/27/2024 1:44 PM Narrative 12/27/2024 1:46 PM CDT [facility] [address] [place], [place] [address] EXAM: XR CHEST PORTABLE DATE: 12/27/2024 1033 hours No comparison INDICATION: Gastric tube placement. TECHNIQUE: One view FINDINGS: Endotracheal tube is about 6 cm above the eunice. Gastric tube is in the stomach. Enlarged heart and central pulmonary vessels. Mild ill-defined lung densities. Procedure Note Ayush Real MD - 12/27/2024 [facility] [address] [place], [place] [address] EXAM: XR CHEST PORTABLE DATE: 12/27/2024 1033 [...] 2.0 MMOL/L 12/27/2024 10:[address] [facility] 12/27/2024 10:0 8 AM CDT us Chidi Gallagher MD LABORATORY Final Result [facility] [address] [place] [address], [id number] * Art Line (12/27/2024 6:56 AM CDT) [...] (CHG imbedding tegaderm) us Nathan Chicas MD AK ANESTHESIA Final Result * TYPE & SCREEN (12/27/2024 5:54 AM CDT) UNITS ORDERED 4 12/30/2024 6:[address] [facility] ABO/RH O POSITIVE 12/27/2024 6:[address] [facility] ANTIBODY SCREEN NEGATIVE 6:[address] [facility] SAMPLE EXPIRATION 12/30/2024,2359 12/27/2024 5:[address] [facility] BLOOD UNIT NUMBER [id number] 12/27/2024 7:[address] [facility] PRODUCT: PC LEUKOPOOR 12/27/2024 7:[address] [facility] UNIT DIVISION 00 12/27/2024 7:[address] [facility] BLOOD UNIT STATUS TRANSFUSED,FINAL 12/28/2024 1:[address] [facility] ISSUE DATE/TIME [id number] 025 1:[address] [facility] PRODUCT CODE [id number] 12/28/2024 1:[address] [facility] ABO/RH Unit O POS 12/28/2024 1:[address] [facility] ABO/RH UNIT ISBT CODE 5100 12/28/2024 1:[address] [facility] BLOOD UNIT EXPIRATION DATE [id number] 12/28/2024 1:[address] [facility] TRANSFUSION STATUS OK TO TRANSFUSE 12/27/2024 7:[address] [facility] CROSSMATCH COMPATIBLE-EXM 12/27/2024 7:[address] [facility] BLOOD UNIT NUMBER [id number] 12/27/2024 7:[address] [facility] PRODUCT: PC LEUKOPOOR 12/27/2024 7:[address] [facility] UNIT DIVISION 00 12/27/2024 7:[address] [facility] BLOOD UNIT STATUS TRANSFUSED,FINAL 12/28/2024 1:[address] [facility] ISSUE DATE/TIME [id number] 025 1:[address] [facility] PRODUCT CODE [id number] 12/28/2024 1:[address] [facility] ABO/RH Unit O POS 12/28/2024 1:[address] [facility] ABO/RH UNIT ISBT CODE 5100 12/28/2024 1:[address] [facility] BLOOD UNIT EXPIRATION DATE [id number] 12/28/2024 1:[address] [facility] TRANSFUSION STATUS OK TO TRANSFUSE 12/27/2024 7:[address] [facility] CROSSMATCH COMPATIBLE-EXM 12/27/2024 7:[address] [facility] BLOOD UNIT NUMBER [id number] 12/30/2024 8:[address] [facility] PRODUCT: PC LEUKOPOOR 12/30/2024 8:[address] [facility] UNIT DIVISION 00 12/30/2024 8:[address] [facility] BLOOD UNIT STATUS TRANSFUSED,FINAL 12/31/2024 1:[address] [facility] ISSUE DATE/TIME [id number] 1:[address] [facility] PRODUCT CODE [id number] 12/31/2024 1:[address] [facility] ABO/RH Unit O POS 12/31/2024 1:[address] [facility] ABO/RH UNIT ISBT CODE 5100 12/31/2024 1:[address] [facility] BLOOD UNIT EXPIRATION DATE [id number] 12/31/2024 1:[address] [facility] TRANSFUSION STATUS OK TO TRANSFUSE 12/30/2024 8:[address] [facility] CROSSMATCH COMPATIBLE-EXM 12/30/2024 8:[address] [facility] 12/27/2024 5:54 AM CDT Angel Gonzalez MD BLOOD BANK TEST ORDERABLES Final Result [facility] [address] [place] [address], [id number] * (ABNORMAL) PROTIME/INR, VENOUS (PROTHROMBIN TIME) (12/27/2024 5:54 AM CDT) [facility] [address] [facility] PROTIME 15.0(H) 9.4 - 12.5 SEC 12/27/2024 6:[address] [facility] INR 1.3(H) 0.8 - 1.1 12/27/2024 6:[address] [facility] 12/27/2024 5:54 AM CDT Niru Diaz DO LABORATORY Final Resul t Performing Organization Address [place]/[facility] de Phone Number [facility] [address] [place] [address], [id number] * CULTURE, BACTERIA BLOOD X2 (12/27/2024 5:53 AM CDT) [facility] [address] SPEC DESCRIPTION BLOOD 12/27/2024 5:[address] [facility] SPECIAL REQUESTS NO SPECIAL REQUEST 12/27/2024 5:[address] [facility] CULTURE RESULT NO GROWTH 5 DAYS 01/01/2025 6:[address] [facility] BLOOD SPECIMEN OBTAINED FOR BLOOD CULTURE / Unknown 12/27/2024 5:53 AM CDT 12/27/2024 5:54 AM CDT Niru Diaz DO MICROBIOLOGY - GENERAL ORDE RABLES Final Result Performing Organization Address City/[facility] Co de Phone Number [facility] [address] [place] [address], [place] [phone] * (ABNORMAL) URINE DRUG SCREEN (TOXICOLOGY) (12/27/2024 5:42 AM CDT) [facility] [address] [facility] PHENCYCLIDINE PCP (U) NEGATIVE NEGATIVE 12/27/2024 7:[address] [facility] BENZODIAZEPINES SCREEN (U) NEGATIVE NEGATIVE 12/27/2024 7:[address] [facility] COCAINE METABOLITES (U) NEGATIVE NEGATIVE 12/27/2024 7:[address] [facility] AMPHETAMINE (U) POSITIVE SCREEN RESULT, IF CONFIRMATION DESIRED PLEASE CONTACT LAB WITHIN ONE WEEK. (A) NEGATIVE 12/27/2024 7:[address] [facility] CANNABINOIDS SCREEN (U) NEGATIVE NEGATIVE 12/27/2024 7:[address] [facility] OPIATE SCREEN (U) POSITIVE SCREEN RESULT, IF CONFIRMATION DESIRED PLEASE CONTACT LAB WITHIN ONE WEEK. (A) NEGATIVE 12/27/2024 7:[address] [facility] BARBITURATES SCREEN (U) NEGATIVE NEGATIVE 12/27/2024 7:[address] [facility] URINE TOX COMMENT Unconfirmed screening results are to be used only for medical purposes. 12/27/2024 5:[address] [facility] CUTOFF CONCENTRATION (U) Cut-off Concentration for a positive result 12/27/2024 5:[address] [facility] Comment: Phencyclidine 25 ng/mL Benzodiazepines 200 ng/mL Cocaine 300 ng/mL Amphetamine 1000 ng/mL Cannabinoids 50 ng/mL Opiates 300 ng/mL Barbiturates 200 ng/mL URINE SPECIMEN / Unknown 12/27/2024 5:42 AM CDT us Niru Diaz DO URINE ORDERABLES Final Resu lt [facility] [address] [place] [address], [id number] * MAMMOGRAM GENERIC (11/30/2016 4:32 PM CDT) Anatomical Region Laterality Modality Other 11/30/2016 4:32 PM CDT 11/30/2016 4:32 PM CDT Narrative 11/30/2016 4:41 PM CDT MAMI TAYLOR ADMIT/SERVICE DATE: 11/18/16 ACCT: [id number] DISCHARGE DATE: : 1960 SEX: F ORD SITE: [facility] PT TYPE: REG CLI ORDERING MD: SHAN DUNBAR MD STUDY DATE REPORT # ORDER # EXT ORDER ID 11/18/16 [id number]; ; [id number]; [id number]; [id number] PROC CODE: AXILNVRT PROCEDURE DESCRIPTION: US AXILLA [...] IF CLINICALLY INDICATED. EXAMINATION: BILATERAL SCREENING MAMMOGRAM [id number], [id number] COMPARISON: OUTSIDE STUDY 07/29/2011. TISSUE DENSITY: THE [...] EXAMINATION: BILATERAL DIAGNOSTIC MAMMOGRAM WITH BILATERAL ULTRASOUND. [id number], [id number] CLINICAL HISTORY: BILATERAL AXILLARY PAIN COMPARISON: NONE [...] - 01/11/2018 MAMI TAYLOR ADMIT/SERVICE DATE:11/18/16 ACCT: [id number] DISCHARGE DATE: : 1960 SEX: F ORD SITE: [facility] PT TYPE: REG CLI ORDERING MD:SHAN DUNBAR MD STUDY DATE REPORT # ORDER # EXT ORDER ID 11/18/16 [id number]; [id number]; [id number]; [id number]; [id number] PROC CODE: AXILNVRT PROCEDURE DESCRIPTION: US AXILLA [...] IF CLINICALLY INDICATED. EXAMINATION: BILATERAL SCREENING MAMMOGRAM [id number], [id number] COMPARISON: OUTSIDE STUDY 07/29/2011. TISSUE DENSITY: THE [...] EXAMINATION: BILATERAL DIAGNOSTIC MAMMOGRAM WITH BILATERAL ULTRASOUND. [id number], [id number] CLINICAL HISTORY: BILATERAL AXILLARY PAIN COMPARISON: NONE [...] Resul t * Colonoscopy (03/20/2009 12:00 AM COUNTY TREASURER) 03/20/2009 03/20/2009 Narrative [facility] TO EPIC CONVERSION - 03/20/2009 12:00 AM COUNTY TREASURER Documented hx of procedure Procedure Note Jaime Echevarria MD - 01/21/2018 Documented hx of procedure us Generic Conversion Md ECHEVARRIA GI PROCEDURE ORDERABLES Final Result [facility] TO EP[facility] CONVERSION from Last 3 Months or Most Recently Relevant to Health Maintenance Insurance [facility] [employer] Advance Directives * Full Code (Latest [...] 3:44 AM 12/27/2024 6:45 AM Care Teams Equipment Service Engineer Relationship Specialty Start Date End Date Sumit Caballero MD [address] [place] [address] PCP - General INTERNAL MEDICINE 11/30/18
--- OUTSIDE RECORDS SUMMARY | 2025-01-18 08:49 | XMS_ITS | Clinical Summary ---
Author Organization [facility] Address [address] [place] [address] Care Team Providers Care Central Sterilization Technician Name Role Phone No, Physician Primary Care Provider [phone] Saroj Solano MD Unavailable [phone] Allergies Active Allergy Reactions Criticality Noted Date [...] Other Medical Brain surg. 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 Gender Identity Not on file Sexual Orientation Not on file Obstetrics History Last Filed Vital Signs Vital Sign Reading Time Taken Comments Blood Pressure 181/96 05/24/2019 11:30 AM MOMD TEACHER Pulse 92 05/24/2019 11:30 AM MOMD TEACHER Temperature - - Respiratory Rate - - Oxygen Saturation - - Inhaled Oxygen Concentration - - Weight 78 kg (172 lb) 05/24/2019 11:30 AM MOMD TEACHER Height 171.5 cm (5' 7.5) 05/24/2019 11:30 AM CS T Body Mass Index 26.54 05/24/2019 11:30 AM MOMD TEACHER Plan of Treatment Not on file Insurance [facility] CHOICE PLUS Care Teams Central Sterilization Technician Relationship Specialty Start Date End Date No, Physician PCP - General 04/18/19 Saroj Solano MD Family Medicine 04/18/19
--- OUTSIDE RECORDS SUMMARY | 2025-01-18 08:49 | XMS_ITS | Clinical Summary ---
Author Organization [facility] Address [address] [place] [address] Care Team Providers Care Dope Maintenance Worker Name Role Phone Tommie Archuleta MD Primary Care Provider [phone] Source Comments [facility] [employer],non-owned Affiliates and Associated Physician Practices is amultiple site organization consisting of ambulatory clinics and hospital sitesin [place], [place], [place] and [place]. This disclosure is being madepursuant to the Care Everywhere program and may not contain all information available regarding this patient. 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 [place] [address] Care Teams Dope Maintenance Worker Relationship Specialty Start Date End Date Tommie Archuleta MD [address] [place] [address] PCP - General 05/21/18
--- NOTE | 2025-01-18 09:00 | ED.ABDPAIN ---
HPI - Abdominal Pain General Chief Complaint: Abdominal Pain Stated Complaint: abdominal pain Source: patient Mode of arrival: ambulatory Limitations: no limitations History of Present Illness HPI narrative: This is a 64-year-old female with a presents with abdominal pain has been seen numerous times for pain and was also seen yesterday for abdominal pain here in the ER. Patient is status post abdominal surgery for Feliz mesenteric ischemia has a colostomy bag and has a suture line mid abdomen. There is no warmth or tenderness to the area no drainage no fever chills has some nausea with no vomiting no chest pain or shortness of breath. MD elicited complaint: abdominal pain Onset (ago): day(s) Pain Consistency: intermittent Location: periumbilical Severity: moderate Pain scale (0-10): 7 Quality: aching Related Data Home Medications ?Medication ?Instructions ?Recorded ?Confirmed ?Last Taken ?Type lisinopril 20 mg tablet 10 mg PO HS 11/03/19 01/18/25 01/18/25 History celecoxib 100 mg capsule 100 mg PO DAILY 01/13/25 01/18/25 01/18/25 History metoprolol tartrate 25 mg tablet 25 mg PO DAILY 01/13/25 01/18/25 01/18/25 History Allergies Allergy/AdvReac Type Severity Reaction Status Date / Time Penicillins Allergy Intermediate Hives Verified 01/18/25 08:54 trimethobenzamide (Tigan) AdvReac Intermediate Vomiting Verified 01/18/25 09:05 varenicline (Chantix) AdvReac Intermediate Vomiting Verified 01/18/25 09:05 NSAIDS (Non-Steroidal AdvReac Mild abdominal Verified 01/18/25 09:05 Anti-Inflamma pain Review of Systems Review of Systems: All systems reviewed & are unremarkable except as noted in HPI and below [facility] Past Medical History Medical History Emphysema lung Hyperlipidemia Hypertension Family History Family History Father Family history of type 2 diabetes mellitus Hypertension Mother Hypertension Sibling No problems noted. Social History Social History Smoking status: Current every day smoker Tobacco type: cigarettes Second hand tobacco smoke exposure: No Alcohol intake: never Substance use: never Do You Feel Safe in your Home?: Yes Lack of Transportation: No Lack of Food: Never True Current Housing: I Have Housing Concerned About Future Housing: No Difficulty Paying Gas/Electric Bills: No Difficulty Paying for Meds: No Currently Unemployed: No Difficulty w/ Childcare or Family Care: No Living arrangements: with family Gender identity (if verbalized by the patient): Female Sexual Orientation (if Verbalized by the Patient): Straight or Heterosexual Spiritual care concerns: No Agree to blood products: Yes Exam Const: General: healthy appearing Nutritional Appearance: well nourished Orientation/consciousness: patient oriented x3 Limitations: no limitations Resp: Effort & Inspection: normal respiratory effort Auscultation: clear to auscultation bilaterally Cardio: Rate: regular rate Rhythm: regular rhythm GI: GI Palp: Yes Soft to palpation and Yes Tenderness to palpation present (GI) Auscultation: normal bowel sounds Other: Has midline suture with stable still intact with a colostomy bag with positive bowel movements : General: Yes bladder normal to palpation Skin: Wounds: wounds noted Other: Suture line with no erythema no drainage no warmth. Course Course Emergency Course: Medical decision making narrative: The patient was evaluated by myself in the emergency department. History obtained from the patient who is an independent historian physical exam performed witnessed by nurse. External medical records were reviewed at this time. Patient received 4mg IM morphine and 4mg ODT Zofran. Repeat assessment: Doing well on repeat exam with no acute distress Symptoms improved since arrival to the ED. Repeat vitals are stable Patient agrees with discussion after shared medical decision-making and agrees with discharge. All questions answered to the patient's satisfaction. Advise her follow-up for pain control with her surgeon or primary within the next 2 to 3 days. Vital Signs Vital signs: Vital Signs Temperature 36.4 C 01/18/25 08:47 Pulse Rate 98 01/18/25 08:47 Respiratory Rate 20 01/18/25 08:47 Blood Pressure 128/73 01/18/25 08:47 Pulse Oximetry 98 01/18/25 08:47 Oxygen Delivery Room Air 01/18/25 08:47 Temperature 36.4 C 01/18/25 08:47 Pulse Rate 98 01/18/25 08:47 Respiratory Rate 20 01/18/25 08:47 Blood Pressure 128/73 01/18/25 08:47 Pulse Oximetry 98 01/18/25 08:47 Oxygen Delivery Room Air 01/18/25 08:47 Critical Care Time Critical Care Time Critical Care Time: No Discharge Plan Discharge Clinical Impression: Abdominal pain Qualifiers: Abdominal location: generalized Qualified Code(s): R10.84 - Generalized abdominal pain Patient Disposition: Home Condition: Stable Instructions: Antibiotic Form, Abdominal Pain (ED) Additional Instructions: Advised follow-up with Primary/surgeon as scheduled. Patient Language: Serbian Prescriptions: New oxycodone-acetaminophen [Percocet] 5-325 mg tablet 1 tablet PO Q6H PRN (Reason: pain) Qty: 20 0RF ondansetron 4 mg tablet,disintegrating 4 mg PO Q6H PRN (Reason: nausea and vomiting) Qty: 14 0RF No Action levofloxacin 500 mg tablet 500 mg PO DAILY Qty: 7 0RF lisinopril 20 mg tablet 10 mg PO HS celecoxib 100 mg capsule 100 mg PO DAILY metoprolol tartrate 25 mg tablet 25 mg PO DAILY Follow-up/Referrals: Sarika Dewey NP [Primary Care Provider, [facility]] Time of Disposition: 09:18
[2025-01-18] MEDS: ONDANSETRON HCL ODT 4 MG TABLET PO (09:07)
[2025-01-18] MEDS: MORPHINE SULFATE (*CRX) 4 MG/ML INJ IM (09:07)
[2025-01-18 09:10] VITALS: BP 126/46; PULSE 74; RESP 16; O2SAT 97
[2025-01-18 09:30] VITALS: BP 128/58; PULSE 78; RESP 16; O2SAT 95
== END 2025-01-18 09:30 | disposition home or self-care (01) ==
PROVIDERS: Emergency Provider Emergency Medicine; PCP Nurse Practitioner Family
DX: R10.84 Generalized abdominal pain (principal); E78.5 Hyperlipidemia, unspecified; I10 Essential (primary) hypertension; J43.9 Emphysema, unspecified; F17.210 Nicotine dependence, cigarettes, uncomplicated; Z79.899 Other long term (current) drug therapy
CPT/HCPCS: 96372; 99283; A9270; J2270

== ENCOUNTER 2025-01-20 12:34 | Outpatient (NON) | payer OTHER, SELFPAY ==
--- OUTSIDE RECORDS SUMMARY | 2014-07-04 02:28 | XMS_ITS | Continuity of Care Document ---
Author Organization [facility] Address [address] [facility] [address] [place] [address] Phone Care Team Providers Care Intelligence Operations Name Role Phone Roni Courtney MD Unavailable [...] Diagnoses Date Provider Providers Copied on Encounter [facility], [address], [facility], tel:[phone] [facility] No Information 5 Roz Tamayo. 1 [place], [place], [address]. tel:[phone] OFFICE/OUTPAT IENT VISIT EST [facility], [address], [address], tel:[phone] [facility] f/u mri (chief complaint) Disorder of bursae and tendons in shoulder regionOther affections of shoulder region, not elsewhere classified 5 Roz Tamayo. 621 [place], [place], [address]. tel:[phone] OFFICE/OUTPAT IENT VISIT [facility], [address] [facility], [place], [address], [place] tel:[phone] [facility] Disorder of bursae and tendons in shoulder region Teresa. [address] [facility] [address], [place], [place], [address]. tel:[phone] Family History Family Member Type Diagnosis Age [...]
--- OUTSIDE RECORDS SUMMARY | 2025-01-20 13:44 | XMS_ITS | Clinical Summary ---
Author Organization [facility] Address [address] [place] [address] Care Team Providers Care Plastics Nurse Name Role Phone No, Physician Primary Care Provider [phone] Saroj Solano MD Unavailable [phone] Allergies Active Allergy Reactions Criticality Noted Date [...] Other Medical Brain surg. 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 Gender Identity Not on file Sexual Orientation Not on file Last Filed Vital Signs Vital Sign Reading Time Taken Comments Blood Pressure 181/96 05/24/2019 11:30 AM FRONT END ENGINEER Pulse 92 05/24/2019 11:30 AM FRONT END ENGINEER Temperature - - Respiratory Rate - - Oxygen Saturation - - Inhaled Oxygen Concentration - - Weight 78 kg (172 lb) 05/24/2019 11:30 AM FRONT END ENGINEER Height 171.5 cm (5' 7.5) 05/24/2019 11:30 AM CS T Body Mass Index 26.54 05/24/2019 11:30 AM FRONT END ENGINEER Plan of Treatment Not on file Insurance [facility] CHOICE PLUS Care Teams Plastics Nurse Relationship Specialty Start Date End Date No, Physician PCP - General 04/18/19 Saroj Solano MD Family Medicine 04/18/19
--- OUTSIDE RECORDS SUMMARY | 2025-01-20 13:44 | XMS_ITS | Clinical Summary ---
Author Organization [facility] Address [address] [place] [address] Care Team Providers Care Insurance Account Representative Name Role Phone Tommie Archuleta MD Primary Care Provider [phone] Source Comments [facility] [employer],non-owned Affiliates and Associated Physician Practices is amultiple site organization consisting of ambulatory clinics and hospital sitesin [place], [place], [place] and [place]. This disclosure is being madepursuant to the Care Everywhere program and may not contain all information available regarding this patient. 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
== END 2025-01-20 12:35 | disposition home or self-care (01) ==
LOC: CHSLAB 12:35
PROVIDERS: Visit Provider Nurse Practitioner Family
DX: L02.211 Cutaneous abscess of abdominal wall (principal); T81.49XA Infection following a procedure, other surgical site, initial encounter
CPT/HCPCS: 87070; 87075; 87076; 87186

== ENCOUNTER 2025-01-21 07:22 | Emergency (ER) | payer OTHER, SELFPAY ==
--- OUTSIDE RECORDS SUMMARY | 2014-07-04 02:28 | XMS_ITS | Continuity of Care Document ---
Author Organization [facility] Address [address] [facility] [address] [place] [address] Phone Care Team Providers Care Refrigerating Oiler Name Role Phone Roni Courtney MD Unavailable [...] Diagnoses Date Provider Providers Copied on Encounter [facility], [address], [facility], tel:[phone] [facility] No Information 5 Roz Tamayo. 1 [place], [place], [address]. tel:[phone] OFFICE/OUTPAT IENT VISIT EST [facility], [address], [address], tel:[phone] [facility] f/u mri (chief complaint) Disorder of bursae and tendons in shoulder regionOther affections of shoulder region, not elsewhere classified 5 Roz Tamayo. 621 [place], [place], [address]. tel:[phone] OFFICE/OUTPAT IENT VISIT [facility], [address] [facility] [address], [place], [address], [place] tel:[phone] [facility] Disorder of bursae and tendons in shoulder region Teresa. [address] [facility] [address], [place], [place], [address]. tel:[phone] Family History Family Member Type Diagnosis Age [...]
--- OUTSIDE RECORDS SUMMARY | 2014-07-04 02:28 | XMS_ITS | Continuity of Care Document ---
Author Organization [facility] Address [address] [facility] [address] [place] [address] Phone Care Team Providers Care System Support Specialist Name Role Phone Roni Courtney MD Unavailable [...] Diagnoses Date Provider Providers Copied on Encounter [facility], [address], [facility], tel:[phone] [facility] No Information 5 Roz Tamayo. 1 [place], [place], [address]. tel:[phone] OFFICE/OUTPAT IENT VISIT EST [facility], [address], [address], tel:[phone] [facility] f/u mri (chief complaint) Disorder of bursae and tendons in shoulder regionOther affections of shoulder region, not elsewhere classified 5 Roz Tamayo. 621 [place], [place], [address]. tel:[phone] OFFICE/OUTPAT IENT VISIT [facility], [address] [facility], [place], [address], [place] tel:[phone] [facility] Disorder of bursae and tendons in shoulder region Teresa. [address] [facility] [address], [place], [place], [address]. tel:[phone] Family History Family Member Type Diagnosis Age At Onset No Information Payers Payer name Insurance type Covered alliance party ID Authoriza tion(s) No Information Social [...]
--- NOTE | ~2025-01-21 | XR_ITS ---
EXAMINATION: XR ribs LT 2V w CXR 2V, 01/21/2025 7:39 TELLER MANAGER HISTORY: pain COMPARISON: No comparisons available. Findings: No acute fracture or malalignment. No significant degenerative changes. Soft tissues unremarkable. Impression: No acute fracture or malalignment. Reviewed, dictated and finalized at location P. ER MANAGER Impression: No acute fracture or malalignment.
--- OUTSIDE RECORDS SUMMARY | 2025-01-21 07:27 | XMS_ITS | Clinical Summary ---
Author Organization [facility] Address [address] [place] [address] Care Team Providers Care Water And Fire Technician Name Role Phone No, Physician Primary Care Provider Saroj Solano MD Unavailable [phone] Allergies Active Allergy Reactions Criticality Noted Date [...] Other Medical Brain surg. 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 Gender Identity Not on file Sexual Orientation Not on file Last Filed Vital Signs Vital Sign Reading Time Taken Comments Blood Pressure 181/96 05/24/2019 11:30 AM RADIOGRAPHER CARDIAC CATHETERIZATION Pulse 92 05/24/2019 11:30 AM RADIOGRAPHER CARDIAC CATHETERIZATION Temperature - - Respiratory Rate - - Oxygen Saturation - - Inhaled Oxygen Concentration - - Weight 78 kg (172 lb) 05/24/2019 11:30 AM RADIOGRAPHER CARDIAC CATHETERIZATION Height 171.5 cm (5' 7.5) 05/24/2019 11:30 AM CS T Body Mass Index 26.54 05/24/2019 11:30 AM RADIOGRAPHER CARDIAC CATHETERIZATION Plan of Treatment Not on file Insurance [place] [employer] Care Teams Water And Fire Technician Relationship Specialty Start Date End Date No, Physician PCP - General 04/18/19 Saroj Solano MD Family Medicine 04/18/19
--- OUTSIDE RECORDS SUMMARY | 2025-01-21 07:27 | XMS_ITS | Clinical Summary ---
Author Organization [facility] Address [address] [place] [address] Care Team Providers Care Hearings Reporter Name Role Phone Tommie Archuleta MD Primary Care Provider [phone] Source Comments [facility] [employer],non-owned Affiliates and Associated Physician Practices is amultiple site organization consisting of ambulatory clinics and hospital sitesin [place], [place], [place] and [place]. This disclosure is being madepursuant to the Care Everywhere program and may not contain all information available regarding this patient. 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
--- NOTE | 2025-01-21 07:30 | ED.GENADULT ---
HPI - General Adult General Chief complaint: Unspecified Stated complaint: L. rib pain Time Seen by Provider: 01/21/25 07:28 Source: patient Mode of arrival: ambulatory Limitations: no limitations History of Present Illness HPI narrative: Patient is a 64-year-old female with chronic pain here for similar left sided abdominal pain but more so in the ribs today. We spent at least 10-15 minutes talking about chronic pain management and that emergency rooms cannot do this type of medicine. She just got oxycodone filled 3 days ago. I explained to her that when she comes to the emergency room we can do our workup but we cannot be giving high-dose narcotics unless there is an emergency situation. She also understands we will not be writing her medication at discharge for pain medicine. She has an appointment with her doctor today. She has a AAA that is in the process of workup with her vascular surgeon. I sent her to a different facility recently and they said our findings were of healing process and not acute infection. All in all, the patient is here for left rib pain without injury. It is not a deep pain but it is a superficial pain when you touch the left ribs according to the patient. Onset (ago): day(s) (One) Location: chest (Left lower ribs) Radiation: non-radiation Severity: moderate Severity scale (1-10): 5 Quality: sharp Pain Consistency: constant Relieving factors: none Exacerbating factors: movement and other (Palpation) Associated symptoms: denies other symptoms Treatments prior to arrival: none (She is not taking oxycodone since 9:00 a.m. last night) Related Data Home Medications ?Medication ?Instructions ?Recorded ?Confirmed ?Last Taken ?Type lisinopril 20 mg tablet 10 mg PO HS 11/03/19 01/18/25 01/21/25 History metoprolol tartrate 25 mg tablet 25 mg PO DAILY 01/13/25 01/18/25 01/21/25 History gabapentin 100 mg capsule mg 01/21/25 Unknown History hydrochlorothiazide 12.5 mg capsule mg 01/21/25 Unknown History naloxone 4 mg/actuation nasal spray intranasal 01/21/25 Unknown History Allergies Allergy/AdvReac Type Severity Reaction Status Date / Time Penicillins Allergy Intermediate Hives Verified 01/21/25 07:27 trimethobenzamide (Tigan) AdvReac Intermediate Vomiting Verified 01/21/25 07:27 varenicline (Chantix) AdvReac Intermediate Vomiting Verified 01/21/25 07:27 NSAIDS (Non-Steroidal AdvReac Mild abdominal Verified 01/21/25 07:27 Anti-Inflamma pain Review of Systems Review of Systems: All systems reviewed & are unremarkable except as noted in HPI and below Constitutional: Constitutional: Reports no additional constitutional complaints Eyes: Eyes: Reports no additional eye complaints ENT: Reports system reviewed and no additional complaints, except as documented Cardiovascular: Cardiovascular: Reports no additional cardiovascular complaints Respiratory: Respiratory: Reports no additional respiratory complaints Gastrointestinal: Gastrointestinal: Reports no additional gastrointestinal complaints Genitourinary: Genitourinary: Reports no additional female genitourinary complaints Musculoskeletal: Musculoskeletal: Reports no additional musculoskeletal complaints Integumentary/Breasts: Skin/Breast: Reports system reviewed and no additional complaints, except as docu Neurologic: Reports system reviewed and no additional complaints, except as documented Psychiatric: Psychiatric: Reports no additional psychiatric complaints Endocrine: Endocrine: Reports no additional endocrine complaints Hematologic/Lymphatic: Hematologic/Lymphatic: Reports no additional hematologic/lymphatic complaints Allergic/Immunologic: Allergic/Immunologic: Reports no additional allergic/immunologic complaints PMFSH Past Medical History Medical History Emphysema lung Hyperlipidemia Hypertension Family History Family History Father Family history of type 2 diabetes mellitus Hypertension Mother Hypertension Sibling No problems noted. Social History Social History Smoking status: Current every day smoker Tobacco type: cigarettes Second hand tobacco smoke exposure: No Alcohol intake: never Substance use: never Do You Feel Safe in your Home?: Yes Lack of Transportation: No Lack of Food: Never True Current Housing: I Have Housing Concerned About Future Housing: No Difficulty Paying Gas/Electric Bills: No Difficulty Paying for Meds: No Currently Unemployed: No Difficulty w/ Childcare or Family Care: No Living arrangements: with family Gender identity (if verbalized by the patient): Female Sexual Orientation (if Verbalized by the Patient): Straight or Heterosexual Spiritual care concerns: No Agree to blood products: Yes Exam Const: General: cooperative, healthy appearing and comfortable HENMT: Head: normal to inspection, No palpable skull fracture present and normocephalic Eyes: General: appearance normal, both eyes and all related structures Visual Hooper: normal visual hooper by confrontation Alignment and Position: alignment normal Neck: Neck: normal visual inspection, full ROM and no lymphadenopathy Chest: Chest palpation & inspection: normal inspection of the chest, abnormal palpation of chest wall, localized rib tenderness with anteroposterior compression and no masses Other: Patient is tender to palpation of the left lower ribs anteriorly only at this time no other abdominal pain on palpation Resp: Effort & Inspection: normal respiratory effort, able to speak in complete sentences and not labored Cardio: Jugular venous distension: no JVD Palpation: normal PMI Rate: regular rate Rhythm: regular rhythm Heart sounds: S1 normal heart sound present and S2 normal heart sound present Bruits: no abdominal aortic bruits GI: Inspection: normal to inspection, no abdominal wall ecchymosis, no edema and non-distended GI Palp: No abdominal tenderness and No Abdominal aortic bruit present Percussion: Yes normal to percussion Auscultation: normal bowel sounds Other: Patient has specifically pain and tenderness of the left lower ribs only and not of the abdomen at this time Back/Spine/Pelvis: Back: no CVA tenderness, No mass and No erythema Skin: General skin exam: normal color, no rashes or lesions noted and elasticity normal Other: No early changes or signs of shingles Neuro: General: oriented to person, oriented to place, oriented to time, gait normal and moves all extremities Extrem: General: normal to inspection, full ROM and capillary refill normal Psych: Appearance: grossly normal, well kempt and not disheveled Course Vital Signs Vital signs: Vital Signs Temperature 36.6 C 01/21/25 07:31 Pulse Rate 94 01/21/25 07:31 Respiratory Rate 18 01/21/25 07:31 Blood Pressure 162/76 H 01/21/25 07:31 Pulse Oximetry 100 01/21/25 07:31 Oxygen Delivery Room Air 01/21/25 07:31 Temperature 36.6 C 01/21/25 07:31 Pulse Rate 94 01/21/25 07:31 Respiratory Rate 18 01/21/25 07:31 Blood Pressure 162/76 H 01/21/25 07:31 Pulse Oximetry 100 01/21/25 07:31 Oxygen Delivery Room Air 01/21/25 07:31 Medical Decision Making MDM Narrative Medical decision making narrative: Patient is a 64-year-old female with chronic pain here with a new or pain of the left lower ribs without injury. We will do x-ray of ribs at this time. Her pain does not extend into the lower abdomen which is are normal chronic pain below the area that she is complaining about pain today. We spent 10-15 minutes talking about pain management and that the emergency room cannot give her chronic pain management in any way to include emergency room medication or discharge medication. I explained that if she has a new problem of course we would be treating the pain acutely. Patient understood. Vital Signs Vital Signs: Vital Signs Temperature 36.6 C 01/21/25 07:31 Pulse Rate 94 01/21/25 07:31 Respiratory Rate 18 01/21/25 07:31 Blood Pressure 162/76 H 01/21/25 07:31 Pulse Oximetry 100 01/21/25 07:31 Oxygen Delivery Room Air 01/21/25 07:31 Temperature 36.6 C 01/21/25 07:31 Pulse Rate 94 01/21/25 07:31 Respiratory Rate 18 01/21/25 07:31 Blood Pressure 162/76 H 01/21/25 07:31 Pulse Oximetry 100 01/21/25 07:31 Oxygen Delivery Room Air 01/21/25 07:31 Imaging Data Attestation: I personally reviewed and interpreted this imaging study as follows: Radiologist's impression: Chest x-ray/ribs left are negative for acute process Discharge Plan Discharge Clinical Impression: Rib sprain Qualifiers: Encounter type: initial encounter Qualified Code(s): S23.41XA - Sprain of ribs, initial encounter Patient Disposition: Home Condition: Stable Instructions: Musculoskeletal Pain (ED) Additional Instructions: Please make sure to follow-up with a vascular surgeon for your abdominal aneurysm. Make sure to follow-up with the primary doctor today as planned. Please use your pain medicine for any pain situation related to your chronic pain. Patient Language: Solomon Islander Prescriptions: No Action hydrochlorothiazide 12.5 mg capsule gabapentin 100 mg capsule naloxone 4 mg/actuation spray,non-aerosol INTRANASAL lisinopril 20 mg tablet 10 mg PO HS oxycodone-acetaminophen [Percocet] 5-325 mg tablet 1 tablet PO Q6H PRN (Reason: pain) Qty: 20 0RF ondansetron 4 mg tablet,disintegrating 4 mg PO Q6H PRN (Reason: nausea and vomiting) Qty: 14 0RF metoprolol tartrate 25 mg tablet 25 mg PO DAILY Follow-up/Referrals: UNKNOWN,DOCTOR [Primary Care Provider] Time of Disposition: 08:29
[2025-01-21 07:31] VITALS: BP 162/76; PULSE 94; RESP 18; TEMP 36.6; O2SAT 100
--- NOTE | 2025-01-21 07:42 | PC.NURSE ---
Pt to radiology with radiology transport.
--- OUTSIDE RECORDS SUMMARY | 2025-01-21 07:47 | XMS_ITS | Clinical Summary ---
Author Organization [facility] Address [address] [place] [address] Care Team Providers Care Sole Painter Name Role Phone Tommie Archuleta MD Primary Care Provider [phone] Source Comments [facility],non-owned Affiliates and Associated Physician Practices is amultiple site organization consisting of ambulatory clinics and hospital sitesin [place], [place], [place] and [place]. This disclosure is being madepursuant to the Care Everywhere program and may not contain all information available regarding this patient. 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
--- OUTSIDE RECORDS SUMMARY | 2025-01-21 07:47 | XMS_ITS | Clinical Summary ---
Author Organization [facility] Address [address] [place] [address] Care Team Providers Care Courtesy Car Driver Name Role Phone No, Physician Primary Care Provider [phone] Saroj Solano MD Unavailable [phone] Allergies Active Allergy Reactions Criticality Noted Date [...] Other Medical Brain surg. 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 Gender Identity Not on file Sexual Orientation Not on file Last Filed Vital Signs Vital Sign Reading Time Taken Comments Blood Pressure 181/96 05/24/2019 11:30 AM SMELTING ENGINEER Pulse 92 05/24/2019 11:30 AM SMELTING ENGINEER Temperature - - Respiratory Rate - - Oxygen Saturation - - Inhaled Oxygen Concentration - - Weight 78 kg (172 lb) 05/24/2019 11:30 AM SMELTING ENGINEER Height 171.5 cm (5' 7.5) 05/24/2019 11:30 AM CS T Body Mass Index 26.54 05/24/2019 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
--- NOTE | 2025-01-21 07:52 | PC.NURSE ---
Pt back in room from radiology.
== END 2025-01-21 08:20 | disposition home or self-care (01) ==
PROVIDERS: Emergency Provider Emergency Medicine; PCP Nurse Practitioner Family
DX: S23.41XA Sprain of ribs, initial encounter (principal); J43.9 Emphysema, unspecified; E78.5 Hyperlipidemia, unspecified; I10 Essential (primary) hypertension; F17.210 Nicotine dependence, cigarettes, uncomplicated; Z79.899 Other long term (current) drug therapy; X58.XXXA Exposure to other specified factors, initial encounter
CPT/HCPCS: 71046; 71100; 99283

== ENCOUNTER 2025-01-22 17:42 | Emergency (ER) | payer OTHER, SELFPAY ==
--- OUTSIDE RECORDS SUMMARY | 2014-07-04 02:28 | XMS_ITS | Continuity of Care Document ---
Author Organization [facility] Address [address] [facility] [address] [place] [address] Phone Care Team Providers Care Cigar Packer And Sorter Name Role Phone Roni Courtney MD Unavailable Unavailable Allergies, Adverse Reactions, Alerts Substance Reaction Status Criticality tramadol Active No Information penicillin G Active No Information Medications Medication Instructions Dosage Effective Dates (start - stop) Status Comments SIMVASTATIN (unknown strength) Not Available - Active Medrol (Jeison) 4 mg tablets in a dose pack take as directed - No Longer Active Procedures Procedure Date OFFICE/OUTPATIENT VISIT EST OFFICE/OUTPATIENT VISIT NEW Advance Directives Directive Yes / No Effective Date File Name No Information Encounters Encounter Description Practice Location Reason(s) For Visit Diagnoses Date Provider Providers Copied on Encounter [facility], [address], [facility], tel:[phone] [facility] No Information 5 Roz Tamayo. 1 [place], [place], [address]. tel:[phone] OFFICE/OUTPAT IENT VISIT EST [facility], [address], [address], tel:[phone] [facility] f/u mri (chief complaint) Disorder of bursae and tendons in shoulder regionOther affections of shoulder region, not elsewhere classified 5 Roz Tamayo. 621 [place], [place], [address]. tel:[phone] OFFICE/OUTPAT IENT VISIT [facility], [address] [facility], [place], [address], [place] tel:[phone] [facility] Disorder of bursae and tendons in shoulder region Teresa. [address] [facility] [address], [place], [place], [address]. tel:[phone] Family History Family Member Type Diagnosis Age At Onset No Information Payers Payer name Insurance type Covered libertarian ID Authoriza tion(s) No Information Social History Type Description Quantity Date Captured Comments Alcohol Use Details Unknown Caffeine Use Details Unknown Tobacco Use Status Smoking Status No Information Sex Female Chief Complaint And Reason For Visit No Information Reason For Referral Reason For Referral No Information Plan Of Treatment Date Type Action Status Referral Ordered: RADEX MARK COMPL MINIMUM 2 VIEWS LT ordered History Of Present Illness Encounter Date Complaint History Of Prese nt Illness f/u mri Functional Status Date Functional Assessmen t No Information Instructions Date Instruction Additional Infor mation Elevate extremity above heart. R elated to Disorder of bursae and tendons in shoulder region Immobilize as directed. Related to Disorder of bursae and tendons in shoulder region Apply ice as tolerated. Related to Disorder of bursae and tendons in shoulder region Assessments Type Assessment Date No Information Patient Care Teams Name Effective Dates (start - stop) Status Members No Information
--- OUTSIDE RECORDS SUMMARY | 2014-07-04 02:28 | XMS_ITS | Continuity of Care Document ---
Author Organization [facility] Address [address] [facility] [address] [place] [address] Phone Care Team Providers Care Alternative Medicine Practitioner Name Role Phone Roni Courtney MD Unavailable [...] Diagnoses Date Provider Providers Copied on Encounter [facility], [address], [facility], tel:[phone] [facility] No Information 5 Roz Tamayo. 1 [place], [place], [address]. tel:[phone] OFFICE/OUTPAT IENT VISIT EST [facility], [address], [address], tel:[phone] [facility] f/u mri (chief complaint) Disorder of bursae and tendons in shoulder regionOther affections of shoulder region, not elsewhere classified 5 Roz Tamayo. 621 [place], [place], [address]. tel:[phone] OFFICE/OUTPAT IENT VISIT [facility], [address] [facility] [facility], [place], [address], [place] tel:[phone] [facility] Disorder of bursae and tendons in shoulder region Teresa. [address] [facility] [address], [place], [place], [address]. tel:[phone] Family History Family Member Type Diagnosis Age At Onset No Information Payers Payer name Insurance type Covered democrat ID Authoriza tion(s) No Information Social History [...]
[2025-01-22] VITALS (13 sets, daily range): BP systolic 116–153; BP diastolic 60–71; PULSE 82–104; RESP 15–24; TEMP 36.6–36.8; O2SAT 98–100
--- NOTE | ~2025-01-22 | XR_ITS ---
EXAM/PROCEDURE: XR chest 1V portable HISTORY: Chest pain COMPARISON: January 21 TECHNIQUE: AP view(s) of the chest. FINDINGS: LUNGS: Linear areas of atelectasis at both lung bases. PLEURAL SPACES: Clear. No evidence of fluid or pneumothorax. HEART/ MEDIASTINUM: Cardiomegaly SOFT TISSUES: No significant findings. BONES: No acute osseous abnormality. IMPRESSION: No significant acute findings. Reviewed, dictated and finalized at location A. E METAL CASTER
--- NOTE | 2025-01-22 17:45 | ED_ITS ---
HPI - General Adult General Chief complaint: Chest Pain Stated complaint: chest pain Time Seen by Provider: 01/22/25 17:45 Source: patient Mode of arrival: ambulatory Limitations: no limitations History of Present Illness HPI narrative: 64 years old white female came to the ED by private car from home complaining of chest tightness palpitation, headache started few hours ago a 29 year patient had similar symptom numerous of time in the last few weeks. Patient ran out of oxycodone last night for chronic pain. 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 Patient is telling me that she have a lot of stress lately especially after having colostomy bag on january 02. She denies any fever, chills, nausea, vomiting, shortness of breath, back pain or abdominal pain. Related Data Home Medications ?Medication ?Instructions ?Recorded ?Confirmed ?Last Taken ?Type lisinopril 20 mg tablet 10 mg PO HS 11/03/19 5 01/21/25 History metoprolol tartrate 25 mg tablet 25 mg PO DAILY 01/18/25 01/21/25 History gabapentin 100 mg capsule mg 01/21/25 Unknown History hydrochlorothiazide 12.5 mg capsule mg 01/21/25 Unkno wn History naloxone 4 mg/actuation nasal spray intranasal 5 Unknown History Allergies Allergy/AdvReac Type Severity Reaction Status Date / Time Penicillins Allergy Intermediate Hives Verified 01/22/25 17:47 trimethobenzamide (Tigan) AdvReac Intermediate Vomiting Verified 01/22/25 17:47 varenicline (Chantix) AdvReac Intermediate Vomiting Verified 01/22/25 17:47 NSAIDS (Non-Steroidal AdvReac Mild abdominal Verified 01/22/25 17:47 Anti-Inflamma pain Review of Systems 2 Review of Systems: All systems reviewed & are unremarkable except as noted in HPI and below PMFSH Past Medical History Medical History Emphysema lung Hyperlipidemia Hypertension Family History Family History Father Family history of type 2 diabetes mellitus Hypertension Mother Hypertension Sibling No problems noted. Social History Social History Tobacco type: cigarettes Second hand tobacco smoke exposure: No Alcohol intake: never Substance use: never Do You Feel Safe in your Home?: Yes Lack of Transportation: No Lack of Food: Never True Current Housing: I Have Housing Concerned About Future Housing: No Difficulty Paying Gas/Electric Bills: No Difficulty Paying for Meds: No Currently Unemployed: No Difficulty w/ Childcare or Family Care: No Living arrangements: with family Gender identity (if verbalized by the patient): Female Sexual Orientation (if Verbalized by the Patient): Straight or Heterosexual Spiritual care concerns: No Agree to blood products: Yes Exam 2 Narrative: General appearance: Well-developed, well-nourished, intermittent hyperventilation Skin: Normal color Head: Normocephalic, nontraumatic Eyes: Clear conjunctiva ENT: Oropharynx normal, ears normal, nose normal Neck: Supple, nontender Chest and respiratory: Airway patent, no respiratory distress, no accessory muscle use Heart: Regular rate/rhythm, ejection systolic murmur Abdomen: Soft, nontender, no organomegaly, quiet bowel sounds, colostomy bag in place Vascular: Normal peripheral pulses, normal capillary refill. Musculoskeletal: Normal range of motion, nontender back Neurologic: Alert and oriented ?3, DIRECTOR COLLEGE is normal as tested, no gross motor deficit Course Vital Signs Vital signs: Vital Signs Temperature 36.6 C 01/22/25 17:44 Pulse Rate 102 H 01/22/25 17:44 Respiratory Rate 18 01/22/25 17:44 Blood Pressure 153/66 H 01/22/25 17:44 Pulse Oximetry 100 01/22/25 17:44 Oxygen Delivery Room Air 01/22/25 17:44 Temperature 36.8 C 01/22/25 19:00 Pulse Rate 82 01/22/25 19:01 Respiratory Rate 23 H 01/22/25 18:46 Blood Pressure 125/67 01/22/25 19:00 Pulse Oximetry 99 01/22/25 19:00 Oxygen Delivery Room Air 01/22/25 17:44 Medical Decision Making [facility] Narrative Medical decision making narrative: Patient came with intermittent chest pain for a while, have been seen in our facility numerous of time for chronic pain management, patient ran out of oxycodone yesterday. Vital signs: Blood pressure 153/66 heart rate 102 otherwise insignificant Physical examination showing hyperventilating patient, colostomy bag in place Differential diagnosis anxiety like symptoms, hyperventilation syndrome, run out of narcotics, drug-seeking behavior. Blood workup today includes CBC, CMP, troponin, pro BMP and coags showed hemoglobin 9.6 consistent with previous readings, platelet count of 526 consistent with previous readings, potassium 3.3 which is low compared to the previous readings, patient received 40 mEq p.o. prior to discharge, pro BNP is 1950, no old records for comparison. PATIENT'S SATURATION 100% ON ROOM AIR, CHEST X-RAY SHOWED NO CONGESTIVE HEART FAILURE. PATIENT'S SYMPTOM RESOLVED AFTER 1 MG OF ATIVAN P.O.. AT THE TIME DISCHARGE PATIENT IS ASYMPTOMATIC. THE SCHEDULED TO SEE HER SEO PROFESSIONAL IN THE MORNING. THE PT WAS DISCHARGED TO HOME.THE PT,S CONDITION UPON DISCHARGE WAS FAIR,EDUCATION WAS PROVIDED TO THE PT IN REFERENCE TO THE FINAL IMPRESSION,DISCHARGE STUDY RESULTS,TREATMENT,PROGNOSIS AND NEED FOR FOLLOW UP . Differential Diagnosis Differential Diagnosis: ABOVE Vital Signs Vital Signs: Vital Signs Temperature 36.6 C 01/22/25 17:44 Pulse Rate 102 H 01/22/25 17:44 Respiratory Rate 18 01/22/25 17:44 Blood Pressure 153/66 H 01/22/25 17:44 Pulse Oximetry 100 01/22/25 17:44 Oxygen Delivery Room Air 01/22/25 17:44 Temperature 36.8 C 01/22/25 19:00 Pulse Rate 82 01/22/25 19:01 Respiratory Rate 23 H 01/22/25 18:46 Blood Pressure 125/67 01/22/25 19:00 Pulse Oximetry 99 01/22/25 19:00 Oxygen Delivery Room Air 01/22/25 17:44 Lab Data 01/22/25 18:16 01/22/25 18:16 Labs: Lab Results 01/22/25 01/22/25 Range/Units 18:16 18:16 WBC 8.6 (4.8-10.8) K/mm3 RBC 4.45 (4.20-5.40) M/mm3 Hgb 9.6 L (11.7-13.8) g/dL Hct 33.8 L (35.0-42.0) % MCV 76.0 L (78.0-102.0) fL MCH 21.6 L (27.0-31.0) pg MCHC 28.4 L (32-36) g/dL RDW 29.1 H (11.6-14.4) % Plt Count 526 H (150-420) K/mm3 MPV 8.5 L (9.2-11.8) fl Immature Gran % (Auto) 0.2 H (0.0-0.0) % Neut % (Auto) 68.9 (50.0-70.0) % Lymph % (Auto) 22.1 (18.0-42.0) % Archer % (Auto) 6.7 (2.0-11.0) % Eos % (Auto) 1.4 (1.0-6.0) % Baso % (Auto) 0.7 (0.0-1.0) % Lymph # (Auto) 1.89 (1.10-4.50) K/mm3 Archer # (Auto) 0.57 (0.10-0.90) K/mm3 Eos # (Auto) 0.12 (0.02-0.50) K/mm3 Baso # (Auto) 0.06 (0.00-0.10) K/mm3 Abs Immat Gran (auto) 0.02 H (0.00-0.00) K/mm3 Absolute Neuts (auto) 5.89 (1.70-7.20) K/mm3 Absolute Nucleated RBC 0.00 (0.00-0.00) K/mm3 Nucleated RBC % 0.0 (0-0.0) % % Immature Plt Fraction 0.5 L (1.0-7.0) % PT 10.9 (9.50-12.1) Seconds INR 1.0 APTT 21.1 L (23.9-30.70) Sec Sodium 144 (137-145) mmol/L Potassium 3.3 L (3.4-5.0) mmol/L Chloride 110 H (98-107) mmol/L Carbon Dioxide 23 (22-30) mmol/L Anion Gap 11 (4-12) mmol/L BUN 19 H (7-17) mg/dL Creatinine 0.95 (0.7-1.0) mg/dL Estim Creat Clear Calc 51 ml/min Estimated GFR 59 (59 - ) Glucose 124 H (65-110) mg/dL Calculated Osmolality 301 H (285-295) mOsm/kg Calcium 9.2 (8.4-10.2) mg/dL Total Bilirubin 1.0 (0.2-1.3) mg/dL AST 22 (14-36) U/L ALT 15 (6-35) U/L Alkaline Phosphatase 155 H (38-126) U/L Troponin I 0.014 (0.000-0.034) ng/mL NT-Pro-B Natriuret Pep 1950 H Cancelled (19.9-100) pg/mL Total Protein 7.5 (6.3-8.2) g/dL Albumin 4.3 (3.5-5.1) g/dL Imaging Data Radiologist's impression: Impressions Chest X-Ray 01/22/25 18:25 IMPRESSION: No significant acute findings. ECG Data EKG #1: Attestation: I personally reviewed and interpreted this ECG as follows: ECG completion date: 01/22/25 Prior ECG tracings: available for review Interpretation: SINUS TACHYCARDIA AT 102 BEATS PER MINUTE, RIGHT VENTRICULAR CONDUCTION DELAY, LEFT VENTRICULAR HYPERTROPHY AND ST T-WAVE CHANGES, ABNORMAL EKG EKG #2: Attestation: I personally reviewed and interpreted this ECG as follows: ECG completion date: 01/22/25 Prior ECG tracings: available for review Interpretation: NORMAL SINUS RHYTHM AT 82 BEATS PER MINUTE, RIGHT VENTRICULAR CONDUCTION DELAY, LEFT VENTRICULAR HYPERTROPHY AND NONSPECIFIC ST T-WAVE ABNORMALITY, COMPARED TO EKG EARLY TODAY DUE BC NOW PRESENT, NORMAL SINUS RHYTHM NOW PRESENT. Critical Care Time Critical Care Time Critical Care Time: No Discharge Plan Discharge Clinical Impression: Anxiety, Chronic pain, Acute hypokalemia Patient Disposition: Home Condition: Improved Instructions: Hypokalemia (ED), Chronic Pain (ED), Anxiety (ED) Additional Instructions: Return if symptoms are worsening , call your family physician for appointment, take Tylenol as as needed for aches and pain, continue home medications. Patient Language: Sami Prescriptions: New potassium chloride [Klor-Con M20] 20 mEq tablet,ER particles/crystals 40 meq PO BID 3 Days Qty: 6 0RF No Action hydrochlorothiazide 12.5 mg capsule gabapentin 100 mg capsule naloxone 4 mg/actuation spray,non-aerosol INTRANASAL lisinopril 20 mg tablet 10 mg PO HS oxycodone-acetaminophen [Percocet] 5-325 mg tablet 1 tablet PO Q6H PRN (Reason: pain) Qty: 20 0RF ondansetron 4 mg tablet,disintegrating 4 mg PO Q6H PRN (Reason: nausea and vomiting) Qty: 14 0RF metoprolol tartrate 25 mg tablet 25 mg PO DAILY Follow-up/Referrals: Sarika Dewey EYE GLASS FRAME POLISHER [Primary Care Provider, Family Practice]
--- NOTE | 2025-01-22 18:03 | ECG_ITS ---
Test Date: 2025-01-22 18:49:09 Measurements Intervals [place] Rate: 82 P: 65 OR: 173 QRS: -2 QRSD: 90 T: 53 QT: 355 QTc: 416 Interpretive Statements SINUS RHYTHM WITH OCCASIONAL VENTRICULAR PREMATURE COMPLEXES POSSIBLE RIGHT VENTRICULAR CONDUCTION DELAY [RSR (QR) IN V1/V2] LEFT VENTRICULAR HYPERTROPHY AND ST-T CHANGE [VOLTAGE CRITERIA PLUS ST/T ABNORMALITY] Compared to ECG 01/13/2025 22:10:32 Ventricular premature complex(es) now present ST (T wave) deviation still present Electronically Signed On 01-23-2025 08:51:53 BOBTAIL DRIVER by Lusi A Roland M.D.
[2025-01-22] MEDS: LORazepam (*CRX) 1 MG TABLET PO (18:08)
[2025-01-22 18:25] LABS: Hematocrit 33.8 % (35.0-42.0); Hemoglobin 9.6 g/dL (11.7-13.8); Immature Granulocyte Percent A 0.2 % (0.0-0.0); Immature Platelet Fraction Pct 0.5 % (1.0-7.0); Lymphocytes Absolute Auto 1.89 K/mm3 (1.10-4.50); Mean Corpuscular HGB Conc 28.4 g/dL (32-36); Mean Corpuscular Hemoglobin 21.6 pg (27.0-31.0); Mean Corpuscular Volume 76.0 fL (78.0-102.0); Nucleated Red Blood Cells Absolute Auto 0.00 K/mm3 (0.00-0.00); Nucleated Red Blood Cells Perc 0.0 % (0-0.0); Platelet Count Result 526 K/mm3 (150-420); Red Blood Count 4.45 M/mm3 (4.20-5.40); White Blood Count 8.6 K/mm3 (4.8-10.8)
[2025-01-22 18:35] LABS: Alanine Aminotransferase 15 U/L (6-35); Albumin Level 4.3 g/dL (3.5-5.1); Alkaline Phosphatase 155 U/L (38-126); Anion Gap 11 mmol/L (4-12); Aspartate Amino Transferase 22 U/L (14-36); Bilirubin,Total 1.0 mg/dL (0.2-1.3); Blood Urea Nitrogen 19 mg/dL (7-17); Calcium 9.2 mg/dL (8.4-10.2); Carbon Dioxide 23 mmol/L (22-30); Chloride 110 mmol/L (98-107); Estimated CRCL calculation 51 ml/min; Estimated Glomerular Filt Rate 59; Glucose 124 mg/dL (65-110); Osmolality Calculated 301 mOsm/kg (285-295); Potassium 3.3 mmol/L (3.4-5.0); Sodium 144 mmol/L (137-145); Total Protein 7.5 g/dL (6.3-8.2)
[2025-01-22 18:37] LABS: INR 1.0; Partial Thromboplastin Time 21.1 Sec (23.9-30.70); Prothrombin Time 10.9 Seconds (9.50-12.1)
--- NOTE | 2025-01-22 18:43 | ECG_ITS ---
Test Date: 2025-01-22 17:54:44 Measurements Intervals [place] Rate: 102 P: 38 [place]: 132 QRS: -4 QRSD: 89 T: 70 QT: 333 QTc: 435 Interpretive Statements SINUS TACHYCARDIA POSSIBLE RIGHT VENTRICULAR CONDUCTION DELAY [RSR (QR) IN V1/V2] LEFT VENTRICULAR HYPERTROPHY AND ST-T CHANGE [VOLTAGE CRITERIA PLUS ST/T ABNORMALITY] Compared to ECG 01/13/2025 22:10:32 Sinus rhythm no longer present ST (T wave) deviation still present Electronically Signed On 01-23-2025 08:51:43 BENDING ROLL HAND by Luis A Roland M.D.
[2025-01-22 18:46] LABS: NT Pro B Type Natriuretic Pept 1950 pg/mL (19.9-100); Troponin I 0.014 ng/mL (0.000-0.034)
[2025-01-22] MEDS: POTASSIUM CHLORIDE 20 MEQ ER TABLET 40 MEQ PO (19:06)
--- OUTSIDE RECORDS SUMMARY | 2025-01-23 15:29 | XMS_ITS | Clinical Summary ---
Author Organization [facility] Address [address] [place] [address] Care Team Providers Care Student Services Dean Name Role Phone No, Physician Primary Care Provider [phone] Saroj Solano MD Unavailable [phone] Allergies Active Allergy Reactions Criticality Noted Date [...] Medical Brain surg. 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
--- OUTSIDE RECORDS SUMMARY | 2025-01-23 15:29 | XMS_ITS | Clinical Summary ---
Author Organization [facility] Address [address] [place] [address] Care Team Providers Care Nut Sheller Name Role Phone Tommie Archuleta MD Primary Care Provider [phone] Source Comments [facility] [employer],non-owned Affiliates and Associated Physician Practices is amultiple site organization consisting of ambulatory clinics and hospital sitesin [place], [place], [place] and [place]. This disclosure is being madepursuant to the Care Everywhere program and may not contain all information available regarding this patient. 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 [address] [place] [address] Care Teams Nut Sheller Relationship Specialty Start Date End Date Tommie Archuleta MD [address] [place] [address] PCP - General 05/21/18
--- OUTSIDE RECORDS SUMMARY | 2025-01-23 15:29 | XMS_ITS | Clinical Summary ---
Author Organization [facility] Address [address] [place] [address] Care Team Providers Care Boring Machine Set Up Operator Jig Name Role Phone Sumit Caballero MD Primary Care Provider [phone] Allergies Active Allergy Reactions Criticality Noted Date [...] Day Supply 21 tablet 01/06/20 25 Active lisinopril (PRINIVIL) 20 MG [...] mouth 4 (four) times daily. 12/29/19 025 Discontinu ed(Error) diclofenac EC (VOLTAREN) 50 MG tablet Take 1 tablet (50 mg total) by mouth 2 (two) times daily. 01/08/20 24 025 Discontinu ed(Stop Taking at Discharge) famotidine (PEPCID) 40 MG tablet Take 1 tablet (40 mg total) by mouth 2 (two) times daily as needed. 025 Discontinu ed(Stop Taking at Discharge) hydroCHLOROthi azide (MICROZIDE) 12.5 MG tablet Take 1 tablet (12.5 mg total) by mouth every morning. 11/27/19 25 025 Discontinu ed(Stop Taking at Discharge) oxyCODONE-acet aminophen (PERCOCET) 10-325 MG tablet Take 1 tablet by mouth every 6 (six) hours as needed. 05/14/19 15 025 Discontinu ed(Stop Taking at Discharge) celecoxib (CELEBREX) 100 MG capsuleIndicat ions:Acute Pain < 7 Day Supply Take 1 capsule (100 mg total) by mouth 2 (two) times daily for 30 doses. Indications: Acute Pain < 7 Day Supply 30 capsule 01/06/20 25 025 gabapentin (NEURONTIN) 100 MG capsuleIndicat ions:Acute Pain < 7 Day Supply Take 1 capsule (100 mg total) by mouth 3 (three) times daily for 14 days. Indications: Acute Pain < 7 Day Supply 42 capsule 01/06/20 25 025 Active Problems Problem Noted Date Diagnosed Date [...] Encounters Date Type Department Care Team Description 01/23/2025 Home Care Visit [facility] [address] [place] [address] Alexus Arreaga, RN [facility] INTERDISCIPLINARY MTG 01/21/2025 9:00 AM PHARMACY CLERK Home Care Visit [facility] [address] [place] [address] Sarika Villeda WOC RN SN TELEPHONE CALL 01/17/2025 12:00 PM CDT Home Care Visit [facility] [address] [place] [address] Alexus Arreaga, RN SN HOME VISIT 01/16/2025 9:45 AM CDT Home Care Visit [facility] [address] [place] [address] Grace Farmer, OT OT INITIAL EVALUATION 01/14/2025 4:31 PM CDT - 01/14/2025 10:46 PM CDT Emergency [facility] [address] [place] [address] Ez Reardon, Isabel Mccauley MD Medical Problem Discharge Disposition: Home or Self Care (Routine Discharge) 01/14/2025 1:00 PM CDT Home Care Visit [facility] [address] [place] [address] Sarika Villeda, WOC RN HH/HSPC ORIENTATION VISIT 01/14/2025 1:00 PM CDT Home Care Visit [facility] [address] [place] [address] Niru Juarez LPN SN HOME VISIT 01/14/2025 11:00 AM CDT Home Care Visit [facility] [address] [place] [address] Kristine Barreto, PT PT INITIAL EVALUATION 01/14/2025 Travel 01/14/2025 Home Care Visit [facility] [address] [place] [address] Aida Foss, RN SN TELEPHONE CALL 01/12/2025 Home Care Visit [facility] [address] [place] [address] Sarika Abel, RN CASE COMMUNICATION 01/11/2025 11:00 AM CDT Home Care Visit [facility] [address] [place] [address] Aida Foss, RN SN OASIS START OF CARE 01/11/2025 Plan of Care Documentation [facility] [address] [place] [address] 01/08/2025 8:45 AM CDT Home Care Visit [facility] [address] [place] [address] Artie Moulton RN SN NON ADMIT SOC 01/08/2025 4:39 AM CDT - 01/08/2025 7:41 AM CDT Emergency [facility] [address] [place] [address] Carlos Ricardo MD Surgery Follow Up Discharge Disposition: Home or Self Care (Routine Discharge) 01/08/2025 Travel 01/07/2025 1:15 PM CDT Home Care Visit [facility] [address] [place] [address] Maribel Sagastume RN SN NON ADMIT SOC 12/28/2024 12:34 PM CDT Anesthesia Event [facility] [address] [place] [address] Kaushik Burleson MD 12/28/2024 11:25 AM CDT - 12/28/2024 3:16 PM CDT Surgery [facility] [address] [place] [address] Niru Diaz, DO RE-LOOK LAPAROTOMY with creation of end colostomy 12/27/2024 6:23 AM CDT Anesthesia Event [facility] [address] [place] [address] Shan Mittal MD Lajeunesse, Kaylie, CRNA 12/27/2024 5:55 AM CDT - 12/27/2024 7:47 AM CDT Surgery [facility] [address] [place] [address] Niru Diaz, DO LAPAROTOMY EXPLORATORY WITH MOBILIZATION OF SPLENIC FLEXURE AND DESCENDING COLON RESECTION, ABTHERA WOUND VAC PLACEMENT 12/27/2024 2:43 AM CDT - 01/05/2025 3:46 PM CDT Hospital Encounter [facility] [address] [place] [address] Ali, Ortiz Fariz, MD ImMichael ratliff DO Zhen, Daniel P, MD Gowda, Chetan [...] doctor or pharmacy Never 01/11/2025 [facility] Utilities Answer Date Recorded In the past 12 months has [employer], gas, oil, or water [employer] threatened to shut off services in your [...] any time in the past 12 m [facility], were you homeless or living in a half-way (including now)? No 12/27/2024 Comments No Sex and Gender Information Value Date Recorded Sex Assigned at Female 12/27/2024 3:39 AM CDT Legal Sex Female 1:27 AM CDT Gender Identity Female 12/27/2024 3:39 AM CDT Sexual Orientation Not on file Last Filed Vital Signs Vital Sign Reading Time Taken Comments Blood Pressure 114/68 01/17/2025 12:07 PM CDT Pulse 87 01/17/2025 12:07 PM CDT Temperature 37 C (98.6 F) 01/17/2025 12:07 PM CDT Respiratory Rate 18 01/17/2025 12:07 PM CDT Oxygen Saturation 97% 01/17/2025 12:07 PM CDT Inhaled Oxygen Concentration - - Weight 74.8 kg (165 lb) 01/14/2025 3:19 PM CDT Height 170.2 cm (5' 7) 01/14/2025 3:19 PM CDT Body Mass Index 25.84 01/14/2025 3:19 PM CDT Plan of Treatment Upcoming Encounters Date Type Department Care Team (Late st Contact Info) Description 01/24/2025 8:00 AM PHARMACY CLERK Appointment [facility] [address] [place] [address] Niru Juarez LPN 01/28/2025 11:15 AM PHARMACY CLERK Appointment [facility] [address] [place] [address] Alexus Arreaga, RN 02/04/2025 12:00 PM PHARMACY CLERK Appointment [facility] [address] [place] [address] Alexus Arreaga, RN 02/11/2025 11:30 AM PHARMACY CLERK Appointment [facility] [address] [place] [address] Alexus Arreaga, RN 02/18/2025 9:00 AM PHARMACY CLERK Appointment [facility] [address] [place] [address] Alexus Arreaga, RN 02/25/2025 8:00 AM PHARMACY CLERK Appointment [facility] [address] [place] [address] Alexus Arreaga, RN 03/04/2025 8:00 AM PHARMACY CLERK Appointment [facility] [address] [place] [address] Alexus Arreaga, RN 03/11/2025 8:00 AM PHARMACY CLERK Appointment [facility] [address] [place] [address] Alxeus Arreaga, RN Health Maintenance Due Date Last [...] PM CDT COLONOSCOPY Routine 03/20/2009 12:00 AM PHARMACY CLERK from Last 3 Months or Most Recently Relevant to Health Maintenance Results * (ABNORMAL) URINALYSIS (01/14/2025 8:27 PM CDT) Only the most recent of2 resultswithin the time period is included. COLOR (U) LIGHT YELLOW 01/14/2025 9:[address] [facility] TRANSPARENCY CLEAR 01/14/2025 9:[address] [facility] SPECIFIC GRAVITY (U) 1.032 1.002 - 1.035 01/14/2025 9:[address] [facility] U PH 6.5 5 - 8 01/14/2025 9:[address] [facility] PROTEIN RANDOM (U) NEGATIVE NEGATIVE 01/14/2025 9:[address] [facility] GLUCOSE (U) NEGATIVE NEGATIVE MG/DL 01/14/2025 9:[address] [facility] KETONES MG/DL (U) NEGATIVE NEGATIVE 01/14/2025 9:[address] [facility] BILIRUBIN (U) NEGATIVE NEGATIVE 01/14/2025 9:[address] [facility] BLOOD (U) NEGATIVE NEGATIVE 01/14/2025 9:[address] [facility] NITRITES NEGATIVE NEGATIVE 01/14/2025 9:[address] [facility] UROBILINOGEN NORMAL 0 - 1 EU/DL 01/14/2025 9:[address] [facility] LEUKOCYTES (U) TRACE(A) NEGATIVE 01/14/2025 9:[address] [facility] RBC/HPF 1 0 - 3 /HPF 01/14/2025 9:[address] [facility] WBC/HPF 4 0 - 6 /HPF 01/14/2025 9:[address] [facility] BACTERIA (U) NONE /HPF 01/14/2025 9:[address] [facility] SQUAMOUS EPITHELIALS 2 01/14/2025 9:[address] [facility] URINE SPECIMEN OBTAINED BY CLEAN CATCH PROCEDURE / Unknown 01/14/2025 8:27 PM CDT Philip Alberto WEB EDITOR URINE ORDERABLES Final Resu lt Performing Organization Address [facility]/ZIP Co de Phone Number [facility] [address] [place] [address], [phone] * CULTURE URINE (01/14/2025 8:27 PM CDT) SPEC DESCRIPTION URINE CLEAN CATCH 01/14/2025 8:[address] [facility] SPECIAL REQUESTS NO SPECIAL REQUEST 01/14/2025 8:[address] [facility] CULTURE RESULT NO GROWTH (< OR = 1,000 CFU/ML) 01/16/2025 11:[address] [facility] URINE SPECIMEN OBTAINED BY CLEAN CATCH PROCEDURE / Unknown 01/14/2025 8:27 PM CDT 01/14/2025 8:59 PM CDT Philip Alberto WEB EDITOR MICROBIOLOGY - GENERAL ORDE RABLES Final Result Performing Organization Address [facility]/ZIP Co de Phone Number [facility] [address] [place] [address], [place] [phone] * TROPONIN, QUANT (01/14/2025 8:00 PM CDT) Only the most recent of5 resultswithin the time period is included. TROPONIN I HIGH SENSITIVITY 49 0 - 53 ng/L 01/14/2025 9:[address] [facility] 01/14/2025 8:00 PM CDT Isabel Lan MD LABORATORY Final Result [facility] [address] [place] [address], [place] [phone] * CTA ABD+PEL (01/14/2025 7:25 PM CDT) [...] 7:40 PM Narrative 01/14/2025 7:56 PM CDT [facility] [address] [place], [place] [address] EXAMINATION: CTA abdomen and pelvis with contrast [...] Procedure Note Bebeto Wolff MD - 01/14/[address] [address] EXAMINATION: CTA abdomen and pelvis with contrast [...] arterial vasculature was created on separate workstation forreview. Automated exposure control was utilized for dose [...] time period is included. ECG QT 364 [facility] 01/14/2025 6:31 PM CDT Narrative [facility] - 01/15/2025 6:14 AM CDT [facility] Test Date: 2025-01-14 Pat Name: MAMI TAYLOR Department: 70 Room: EXAM CC Gender: Female [employer] Marketing Analyst: : 1960 Requested By: EZ REARODN Order Number: [id number] Reading MD: Radha Nixon Measurements Intervals Brooks Rate: 85 P: 38 VT: 167 QRS: 15 QRSD: 94 T: 33 QT: 364 QTc: 434 Interpretive Statements SINUS RHYTHM POSSIBLE RIGHT VENTRICULAR CONDUCTION DELAY ST DEVIATION AND MODERATE T-WAVE ABNORMALITY, CONSIDER LATERAL ISCHEMIA Procedure Note Radha Nixon MD - 01/15/2025 [facility] Test Date: 2025-01-14 Pat Name: MAMI MENENDEZARMagdalena Department: 70 Room: EXAM CC Gender: Female [employer] Energy Marketing 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 LACTIC ACID VENOUS 1.5 0.4 - 2.0 MMOL/L 01/14/2025 5:[address] [facility] 01/14/2025 5:04 PM CDT us Philip Alberto WEB EDITOR LABORATORY Final Resul t [facility] [address] [place] [address], [phone] * (ABNORMAL) COMPREHENSIVE METABOLIC PANEL (01/14/2025 5:04 PM CDT) Only the most recent of2 resultswithin the time period is included. Pathologist [facility] SODIUM S/P/B 138 136 - 145 MMOL/L 01/14/2025 5:[address] [facility] POTASSIUM S/P/B 3.8 3.5 - 5.1 MMOL/L 01/14/2025 5:[address] [facility] CHLORIDE S/P/B 107 97 - 115 MMOL/L 01/14/2025 5:[address] [facility] CO2 26.3 21.0 - 32.0 MMOL/L 01/14/2025 5:[address] [facility] GLUCOSE 108(H) 74 - 106 MG/DL 01/14/2025 5:[address] [facility] BUN 14 7 - 18 MG/DL 01/14/2025 5:[address] [facility] CREATININE S/P/B 0.78 0.55 - 1.02 MG/DL 01/14/2025 5:[address] [facility] CALCIUM S/P/B 8.5 8.5 - 10.1 MG/DL 01/14/2025 5:[address] [facility] BILIRUBIN TOTAL S/P/B 0.2 0.2 - 1.0 MG/DL 01/14/2025 5:[address] [facility] ALKALINE PHOSPHATASE S/P/B 352(H) 50 - 130 U/L 01/14/2025 5:[address] [facility] AST 26 15 - 37 U/L 01/14/2025 5:[address] [facility] ALT 24 13 - 56 U/L 01/14/2025 5:[address] [facility] TOTAL PROTEIN S/P/B 6.8 6.4 - 8.2 G/DL 01/14/2025 5:[address] [facility] ALBUMIN S/P/B 2.8(L) 3.4 - 5.0 G/DL 01/14/2025 5:[address] [facility] ANION GAP 4.7 2.0 - 10.0 MMOL/L 01/14/2025 5:[address] [facility] OSMOLALITY (CALC) 287 MOSM/KG 025 5:[address] [facility] Comment:REFERENCE RANGE NOT ESTABLISHED GFR ESTIMATE 84(L) >90 ML/MIN/1. 73 M2 01/14/2025 5:[address] [facility] GFR NOTES GFR REFERENCE S: 01/14/2025 5:[address] [facility] Comment: THE [...] ml/min/1.73 m2 01/14/2025 5:04 PM CDT us Philip Uche-Vespa WEB EDITOR LABORATORY Final Resul t [facility] [address] [place] [address], [phone] * (ABNORMAL) CBC W/DIFF AUTOMATED (01/14/2025 5:04 PM CDT) Only the most recent of10 resultswithin the time period is included. WBC 10.89(H) 4.00 - 10.80 x10'3/uL 01/14/2025 5:[address] [facility] RBC 4.10 4.10 - 5.40 x10'6/uL 01/14/2025 5:[address] [facility] HGB 9.0(L) 12.0 - 16.0 G/DL 01/14/2025 5:[address] [facility] HCT 31.2(L) 36.0 - 47.0 % 01/14/2025 5:[address] [facility] MCV 76.1(L) 78.0 - 100.0 FL 01/14/2025 5:[address] [facility] MCH 22.0(L) 27.0 - 31.0 PG 01/14/2025 5:[address] [facility] MCHC 28.8(L) 33.0 - 36.0 G/DL 01/14/2025 5:[address] [facility] RDW 31.5(H) 11.5 - 14.5 % 01/14/2025 5:[address] [facility] PLT 746(H) 150 - 350 x10'3/uL 01/14/2025 5:[address] [facility] MPV 8.5 7.4 - 10.4 FL 01/14/2025 5:[address] [facility] DIFFERENTIAL TYPE AUTOMATED DIFFERENTIAL 01/14/2025 5:[address] [facility] SEG NEUTROPHILS 67.2 % 5:[address] [facility] LYMPHOCYTES 19.7 % 01/14/2025 5:[address] [facility] MONOCYTES 7.0 % 01/14/2025 5:[address] [facility] EOSINOPHILS 4.5 % 01/14/2025 5:[address] [facility] BASOPHILS 1.1 % 01/14/2025 5:[address] [facility] IMMATURE GRANS % 0.5 % 01/15/20 5:[address] [facility] ABS. NEUTROPHILS 7.33 1.60 - 8.30 x10'3/uL 01/14/2025 5:[address] [facility] ABS. LYMPHOCYTES 2.14 0.80 - 4.70 x10'3/uL 01/14/2025 5:[address] [facility] ABS. MONOCYTES 0.76 0.00 - 1.50 x10'3/uL 01/14/2025 5:[address] [facility] ABS. EOSINOPHILS 0.49(H) 0.00 - 0.40 x10'3/uL 01/14/2025 5:[address] [facility] ABS. BASOPHILS 0.12 0.00 - 0.20 x10'3/uL 01/14/2025 5:[address] [facility] ABS. IMMATURE GRANULOCYTES 0.05(H) 0.00 - 0.03 x10'3/uL 01/14/2025 5:[address] [facility] ABS. NUCLEATED RBC'S 0.00 0.00 - 0.01 x10'3/uL 01/14/2025 5:[address] [facility] NRBC % 0.0 % 01/14/2025 5:[address] [facility] RBC MORPHOLOGY SLIDE REVIEWED 2024 5:[address] [facility] ANISO MARKED 01/14/2025 5:[address] [facility] POIKLO SLIGHT 01/14/2025 5:[address] [facility] HYPOCHROMASIA MODERATE 01/14/2025 5:[address] [facility] MICRO SLIGHT 01/14/2025 5:[address] [facility] POLY SLIGHT 01/14/2025 5:[address] [facility] OVALOCYTES PRESENT 01/14/2025 5:[address] [facility] TARGET CELLS PRESENT 01/14/2025 5:[address] [facility] ACANTHOCYTES PRESENT 01/14/2025 5:[address] [facility] PLT EST. INCREASED 01/14/2025 5:[address] [facility] 01/14/2025 5:04 PM CDT Philip Alberto WEB EDITOR LABORATORY Final Resul t Performing Organization Address [facility] de Phone Number [facility] [address] [place] [address], [phone] * (ABNORMAL) MAGNESIUM (01/14/2025 5:04 PM CDT) Only the most recent of9 resultswithin the time period is included. MAGNESIUM 1.5(L) 1.6 - 2.6 MG/DL 01/14/2025 5:[address] [facility] 01/14/2025 5:04 PM CDT Philip Alberto WEB EDITOR LABORATORY Final Resul t Performing Organization Address [facility] Co de Phone Number [facility] [address] [place] [address], [place] [phone] * LIPASE (01/14/2025 5:04 PM CDT) LIPASE 54 13 - 75 UNITS/L 01/14/2025 5:[address] [facility] 01/14/2025 5:04 PM CDT Philip Alberto NP LABORATORY Final Resul t Performing Organization Address City/[facility] Co de Phone Number [facility] [address] [place] [address], [phone] * BLOOD CULTURE #1 (01/14/2025 5:03 PM CDT) Only the most recent of2 resultswithin the time period is included. Pathologist [facility] SPEC DESCRIPTION BLOOD 01/14/2025 3:[address] [facility] SPECIAL REQUESTS NO SPECIAL REQUEST 01/14/2025 3:[address] [facility] CULTURE RESULT NO GROWTH 5 DAYS 01/19/2025 4:[address] [facility] BLOOD SPECIMEN OBTAINED FOR BLOOD CULTURE / Unknown 01/14/2025 5:03 PM CDT 01/14/2025 5:16 PM CDT Philip Alberto NP MICROBIOLOGY - GENERAL ORDE RABLES Final Result Performing Organization Address [facility] Co de Phone Number [facility] [address] [place] [address], [place] [phone] * (ABNORMAL) BASIC METABOLIC PANEL (01/04/2025 4:40 AM CDT) Only the most recent of8 resultswithin the time period is included. Pathologist [facility] SODIUM S/P/B 138 136 - 145 MMOL/L 01/04/2025 5:[address] [facility] POTASSIUM S/P/B 4.4 3.5 - 5.1 MMOL/L 01/04/2025 5:[address] [facility] Comment:MILD HEMOLYSIS, RESU LT MAY BE AFFECTED. CHLORIDE S/P/B 103 97 - 115 MMOL/L 01/04/2025 5:[address] [facility] CO2 30.9 21.0 - 32.0 MMOL/L 01/04/2025 5:[address] [facility] GLUCOSE 122(H) 74 - 106 MG/DL 01/04/2025 5:[address] [facility] BUN 11 7 - 18 MG/DL 01/04/2025 5:[address] [facility] CREATININE S/P/B 0.52(L) 0.55 - 1.02 MG/DL 01/04/2025 5:[address] [facility] CALCIUM S/P/B 8.5 8.5 - 10.1 MG/DL 01/04/2025 5:[address] [facility] ANION GAP 4.1 2.0 - 10.0 MMOL/L 01/04/2025 5:[address] [facility] OSMOLALITY (CALC) 287 MOSM/KG 025 5:55 AM [facility] Comment:REFERENCE RANGE NOT ESTABLISHED GFR ESTIMATE >90 >90 ML/MIN/1. 73 M2 01/04/2025 5:[address] [facility] GFR NOTES GFR REFERENCE S: 01/04/2025 5:[address] [facility] Comment: THE [...] MD LABORATORY Final Result Performing Organization Address [facility] Co de Phone Number [facility] [address] [place] [address], [place] [phone] * PHOSPHORUS, INORGANIC PHOSPHATE (01/04/2025 4:40 AM CDT) Only the most recent of8 resultswithin the time period is included. PHOSPHORUS 4.3 2.5 - 4.9 MG/DL 01/04/2025 5:[address] [facility] 01/04/2025 4:40 AM CDT us Montez Molina MD LABORATORY Final Result Performing Organization Address [facility] de Phone Number [facility] [address] [place] [address], [place] [phone] * (ABNORMAL) POCT glucose (01/03/2025 11:22 AM CDT) Only the most recent of26 resultswithin the time period is included. GLUCOSE POC 194(H) 70 - 109 01/03/2025 11:[address] [facility] 01/03/2025 11:2 2 AM CDT us Montez Molina MD POCT ORDERABLES - DEVICE Final Result Performing Organization Address [facility] de Phone Number [facility] [address] [place] [address], [place] [phone] * CT ABD+PEL W CON (01/02/2025 11:10 [...] 1:36 PM Narrative 01/02/2025 1:56 PM CD[address] [address] EXAMINATION: CT ABD+PEL W CON EXAM DATE: [...] Procedure Note Jim Blanco DO - 01/02/[address] [address] EXAMINATION: CT ABD+PEL W CON EXAM DATE: [...] Detected Not Detected 01/04/2025 2:12 PM CDT [employer] Comment: A Not Detected result indicates that [...] analytical performance characteristics have been determined by [employer] [place], [place]. It has not been cleared or approved by the U.S. Food and Drug Administration. This assay has been validated pursuant to the CLIA regulations and is used for clinical purposes. Test Performed by [facility], [employer] [facility], [address] [place], [place] Mike Mitchell M.D., Ph.D., Director of Laboratories , CLIA [id number] 01/01/2025 12:5 0 PM CDT Montez Molina MD LABORATORY Final Result Performing Organization Address City/[facility]/ZIP Co de Phone Number [employer] [address] [place], [place] , [place] [phone] * (ABNORMAL) HEMOGLOBIN AND HEMATOCRIT (12/30/2024 1:49 PM CDT) HGB 7.9(L) 12.0 - 16.0 G/DL 12/30/2024 2:[address] [facility] HCT 28.0(L) 36.0 - 47.0 % 12/30/2024 2:[address] [facility] 12/30/2024 1:49 PM CDT Montez Molina MD LABORATORY Final Result [facility] [address] [place] [address], [place] [phone] [id number] * TRANSFUSE RED BLOOD CELLS (12/30/2024 11:22 [...] CDT Saima Hager MD LABORATORY Final Result [facility] [address] [place] [address], [id number] * USE Neurodyn (12/29/2024 12:25 PM CDT) Anatomical Region Laterality Modality Cardiac Echocardiogram 12/29/2024 9:54 AM CDT Narrative 12/29/2024 5:31 PM CDT Echocardiography Report Pat.Name: MAMI TAYLOR Pat.ID: [id number] St.Date: 12/29/2024 Refer.MD: SAIMA HAGER Exam Time: 9:54:00 AM Study Type:ECHO WITH DOPPLER LIMITED Height: 67 in Weight: 170 lb BSA: 1.89 m2 Age: 11 1960,64Y Sex: F BP: 143/66 HR: 83 bpm Sonogrphr: Alicia Norwood [facility] Pat. Stat.:Inpatient Room: ICUA07 [facility] - 4: [phone] Reason for Study:assess intracavitary gradient (LVOT), bubble [...] - 12/29/2024 Echocardiography Report Pat.Name: MAMI TAYLOR.ID: [id number] .Date: 12/29/2024 Refer.MD: SAIMA HAGER Exam Time: 9:54:00 AM Study Type:ECHO WITH DOPPLER LIMITED Height: 67 in Weight: 170 lb BSA: 1.89 m2 Age: 11 1960,64Y Sex: F BP: 143/66 HR: 83 bpm Sonogrphr: Alicia Norwood [facility] Pat. Stat.:Inpatient Room: [facility] CPT - 4: [id number] Reason for Study:assess intracavitary gradient (LVOT), bubble [...] the time period is included. PATHOLOGY [facility] Department of Laboratory Medicine [address] [place] [address] , extension [phone] Pathology Report Surgical Pathology Report Name: MAMI TAYLOR Specimen #: [id number] Age: 11 1960 (Age: 64) Location: [facility] Sex: F Procedure Date: 12/28/2024 Hospital #: [id number] Date Received: 12/30/2024 Date Reported: 12/31/2024 Provider: [...] examination (when applicable) was performed at [facility], [address], [place] [address]. This case was interpreted and signed out at [facility], [address] [place] [address], [place] [address]. Electronically Signed Out GARCÍA GROVES MD [facility] TISSUE (OTHER (type in comments)) 12/28/2024 1:30 PM CDT us Niru Diaz DO PATHOLOGY/CYTOLOGY ORDERABL ES Final Result [facility] [address] [place] [address], [id number] * USE ECHOCARDIOGRAM W CON (12/27/2024 2:05 PM CDT) Anatomical Region Laterality Modality NA Echocardiogram 12/27/2024 1:35 PM CDT Narrative 12/27/2024 2:54 PM CDT Echocardiography Report Pat.Name: MAMI TAYLOR Rhea.ID: [id number] .Date: 12/27/2024 Refer.: [id number] NONE PROVIDER EWDPROV EWDPROV Exam Time: 1:35:00 PM Study Type:ECHO WITH CARDIAC DOPPLER COMP Height: 67 in Weight: 170 lb BSA: 1.89 m2 Age: 11 1960,64Y Sex: F BP: 118/53 HR: 81 bpm Sonogrphr: HAKEEM Briggs Pat. Stat.:Inpatient Room: ICUA CPT - 4: 58286 Reason for Study:Evaluate for thrombus/vegetations Procedures: 2D, [...] Mass 2D Value 159 g LV Mass [id number] Value 84.1 g/m2 Med MA LV Peak [...] 2.8 cm Right Ventricle 2.3 cm Major Brooks 8.3 cm MMODE TA Tricuspid Annul 2.09 cm <Electronic Signature> 12/27/2024 02:54 PM Gerri Mcneal M.D. Procedure Note Gerri Mcneal DO - 12/27/2024 Echocardiography Report Pat.Name: MAMI TAYLOR.ID: [id number] .Date: 12/27/2024 Refer.: [id number] NONE PROVIDER EWDPROV EWDPROV Exam Time: 1:35:00 PM Study Type:ECHO WITH CARDIAC DOPPLER COMP Height: 67 in Weight: 170 lb BSA: 1.89 m2 Age: 11 1960,64Y Sex: F BP: 118/53 HR: 81 bpm Sonogrphr: HAKEEM Briggs. Stat.:Inpatient Room: [facility] CPT - 4: 20744 Reason for Study:Evaluate for thrombus/vegetations Procedures: 2D, [...] Mass 2D Value 159 g LV Mass [id number] Value 84.1 g/m2 Med MA LV Peak [...] 2.8 cm Right Ventricle 2.3 cm Major Brooks 8.3 cm MMODE TA Tricuspid Annul 2.09 cm <Electronic Signature> 12/27/2024 02:54 PM Gerri Mcneal M.D. us Niru Diaz DO ECHO Final [...] - 7.45 12/27/2024 10:[address] [facility] POC PCO2 ARTERIAL 39.8 35.0 - 45.0 MMHG 12/27/2024 10:[address] [facility] POC PO2 ARTERIAL 115(H) 80 - 105 MMHG 12/27/2024 10:[address] [facility] POC HCO3 ARTERIAL 18.9(L) 22 - 26 MMOL/L 12/27/2024 10:[address] [facility] POC TCO2 ARTERIAL 20(L) 23 - 27 MMOL/L 12/27/2024 10:[address] [facility] POC BASE DEFICIT ARTERIAL 8(H) 0 - 2 MMOL/L 12/27/2024 10:[address] [facility] POC HEMATOCRIT 29(L) 38 - 51 % 12/27/2024 10:[address] [facility] TIME TEST WAS PERFORMED: 1045 12/27/2024 10:[address] [facility] 12/27/2024 10:4 5 AM CDT us Chidi Gallagher MD POCT ORDERABLES - DEVICE Final Result Performing Organization Address City/State/[facility] Co de Phone Number [facility] [address] [place] [address], [phone] * XR CHEST PORTABLE (12/27/2024 10:36 AM CDT) Anatomical Region Laterality Modality Chest Radiographic Mary ging 12/27/2024 1:44 PM CDT Impressions 12/27/2024 1:46 PM CDT IMPRESSION: The gastric tube is in the stomach. Referred By: PROVIDER NONE Interpreted By: Ayush Real MD, 12/27/2024 1:44 PM Narrative 12/27/2024 1:46 PM CDT [facility] [address] [place], [place] [address] EXAM: XR CHEST PORTABLE DATE: 12/27/2024 1033 hours No comparison INDICATION: Gastric tube placement. TECHNIQUE: One view FINDINGS: Endotracheal tube is about 6 cm above the eunice. Gastric tube is in the stomach. Enlarged heart and central pulmonary vessels. Mild ill-defined lung densities. Procedure Note Ayush Real MD - 12/27/[address] [address] EXAM: XR CHEST PORTABLE DATE: 12/27/2024 1033 [...] CENTER LAB 12/27/2024 10:0 8 AM CDT Chidi Gallagher MD LABORATORY Final Result [facility] [address] [place] [address], [id number] * Art Line (12/27/2024 6:56 AM CDT) [...] (CHG imbedding tegaderm) us Nathan Chicas MD [place] ANESTHESIA Final Result * TYPE & SCREEN (12/27/2024 5:54 AM CDT) UNITS ORDERED 4 12/30/2024 6:[address] [facility] ABO/RH O POSITIVE 12/27/2024 6:[address] [facility] ANTIBODY SCREEN NEGATIVE 6:[address] [facility] SAMPLE EXPIRATION 12/30/2024,2359 12/27/2024 5:[address] [facility] BLOOD UNIT NUMBER [id number] 12/27/2024 7:[address] [facility] PRODUCT: PC LEUKOPOOR 12/27/2024 7:[address] [facility] UNIT DIVISION 00 12/27/2024 7:[address] [facility] BLOOD UNIT STATUS TRANSFUSED,FINAL 12/28/2024 1:[address] [facility] ISSUE DATE/TIME [id number] 025 1:[address] [facility] PRODUCT CODE [id number] 12/28/2024 1:[address] [facility] ABO/RH Unit O POS 12/28/2024 1:[address] [facility] ABO/RH UNIT ISBT CODE 5100 12/28/2024 1:[address] [facility] BLOOD UNIT EXPIRATION DATE [id number] 12/28/2024 1:[address] [facility] TRANSFUSION STATUS OK TO TRANSFUSE 12/27/2024 7:[address] [facility] CROSSMATCH COMPATIBLE-EXM 12/27/2024 7:[address] [facility] BLOOD UNIT NUMBER [id number] 12/27/2024 7:[address] [facility] PRODUCT: PC LEUKOPOOR 12/27/2024 7:[address] [facility] UNIT DIVISION 00 12/27/2024 7:[address] [facility] BLOOD UNIT STATUS TRANSFUSED,FINAL 12/28/2024 1:[address] [facility] ISSUE DATE/TIME [id number] 025 1:[address] [facility] PRODUCT CODE [id number] 12/28/2024 1:[address] [facility] ABO/RH Unit O POS 12/28/2024 1:[address] [facility] ABO/RH UNIT ISBT CODE 5100 12/28/2024 1:[address] [facility] BLOOD UNIT EXPIRATION DATE [id number] 12/28/2024 1:[address] [facility] TRANSFUSION STATUS OK TO TRANSFUSE 12/27/2024 7:[address] [facility] CROSSMATCH COMPATIBLE-EXM 12/27/2024 7:[address] [facility] BLOOD UNIT NUMBER [id number] 12/30/2024 8:[address] [facility] PRODUCT: PC LEUKOPOOR 12/30/2024 8:[address] [facility] UNIT DIVISION 00 12/30/2024 8:[address] [facility] BLOOD UNIT STATUS TRANSFUSED,FINAL 12/31/2024 1:[address] [facility] ISSUE DATE/TIME [id number] 025 1:[address] [facility] PRODUCT CODE [id number] 12/31/2024 1:[address] [facility] ABO/RH Unit O POS 12/31/2024 1:[address] [facility] ABO/RH UNIT ISBT CODE 5100 12/31/2024 1:[address] [facility] BLOOD UNIT EXPIRATION DATE [id number] 12/31/2024 1:[address] [facility] TRANSFUSION STATUS OK TO TRANSFUSE 12/30/2024 8:[address] [facility] CROSSMATCH COMPATIBLE-EXM 12/30/2024 8:[address] [facility] 12/27/2024 5:54 AM CDT Angel Gonzalez MD BLOOD BANK TEST ORDERABLES Final Result Performing Organization Address [facility] de Phone Number [facility] [address] [place] [address], [phone] * (ABNORMAL) PROTIME/INR, VENOUS (PROTHROMBIN TIME) (12/27/2024 5:54 AM CDT) PROTIME 15.0(H) 9.4 - 12.5 SEC 12/27/2024 6:[address] [facility] INR 1.3(H) 0.8 - 1.1 12/27/2024 6:[address] [facility] 12/27/2024 5:54 AM CDT Niru Diaz DO LABORATORY Final Resul t Performing Organization Address City/[facility] Co de Phone Number [facility] [address] [place] [address], [place] [phone] * (ABNORMAL) URINE DRUG SCREEN (TOXICOLOGY) (12/27/2024 [...] lt [facility] [address] [place] [address], [phone] * MAMMOGRAM GENERIC (11/30/2016 4:32 PM CDT) Anatomical Region Laterality Modality Other 11/30/2016 4:32 PM CDT 11/30/2016 4:32 PM CDT Narrative 11/30/2016 4:41 PM CDT [facility] ADMIT/SERVICE DATE: 11/18/16 ACCT: [id number] DISCHARGE DATE: : 1960 SEX: F ORD SITE: [facility] PT TYPE: REG CLI ORDERING MD: SHAN DUNBAR MD STUDY DATE REPORT # ORDER # EXT ORDER ID 11/18/16 [id number]; [id number]; [id number]; [id number]; [id number] PROC CODE: AXILNVRT PROCEDURE DESCRIPTION: US AXILLA [...] IF CLINICALLY INDICATED. EXAMINATION: BILATERAL SCREENING MAMMOGRAM [id number], [id number] COMPARISON: OUTSIDE STUDY 07/29/2011. TISSUE DENSITY: THE [...] EXAMINATION: BILATERAL DIAGNOSTIC MAMMOGRAM WITH BILATERAL ULTRASOUND. [id number], [id number] CLINICAL HISTORY: BILATERAL AXILLARY PAIN COMPARISON: NONE [...] - 01/11/2018 MAMI TAYLOR ADMIT/SERVICE DATE:11/18/16 ACCT: [id number] DISCHARGE DATE: : 1960 SEX: F ORD SITE: [facility] PT TYPE: REG CLI ORDERING MD:SHAN DUNBAR MD STUDY DATE REPORT # ORDER # EXT ORDER ID 11/18/16 [id number]; [id number]; [id number]; [id number]; [id number] PROC CODE: AXILNVRT PROCEDURE DESCRIPTION: US AXILLA [...] IF CLINICALLY INDICATED. EXAMINATION: BILATERAL SCREENING MAMMOGRAM [id number], [id number] COMPARISON: OUTSIDE STUDY 07/29/2011. TISSUE DENSITY: THE [...] EXAMINATION: BILATERAL DIAGNOSTIC MAMMOGRAM WITH BILATERAL ULTRASOUND. [id number], [id number] CLINICAL HISTORY: BILATERAL AXILLARY PAIN COMPARISON: NONE [...] Resul t * Colonoscopy (03/20/2009 12:00 AM PHARMACY CLERK) 03/20/2009 03/20/2009 Narrative [facility] TO EPIC CONVERSION - 03/20/2009 12:00 AM PHARMACY CLERK Documented hx of procedure Procedure Note Jaime Echevarria MD - 01/21/2018 Documented hx of procedure us Generic Conversion Md ECHEVARRIA GI PROCEDURE ORDERABLES Final Result [facility] TO EPIC CONVERSION from Last 3 Months or Most Recently Relevant to Health Maintenance Insurance [facility] [employer] Advance Directives * Full Code (Latest Code Status on File) Date Activated Date Inactivated Comments 01/21/2025 1:22 PM * Full Code Date Activated Date Inactivated Comments 01/13/2025 9:52 AM 01/14/2025 3:11 PM * Full Code Date Activated Date Inactivated Comments 01/12/2025 9:43 PM 01/13/2025 9:36 AM * Full Code Date Activated Date Inactivated Comments 12/27/2024 6:46 AM 01/05/2025 5:52 PM * Full Code Date Activated Date Inactivated Comments 12/27/2024 3:44 AM 12/27/2024 6:45 AM Care Teams Boring Machine Set Up Operator Jig Relationship Specialty Start Date End Date Sumit Caballero MD [address] [place] [address] PCP - General INTERNAL MEDICINE 11/30/18
--- OUTSIDE RECORDS SUMMARY | 2025-01-23 15:29 | XMS_ITS | Encounter Summary ---
Author Organization [facility] Address [address] [place] [address] Care Team Providers Care Slipper Maker Name Role Phone Sumit Caballero MD Primary Care Provider [phone] Reason for Visit * Auth/Cert (Routine) Specialty Diagnoses / Procedures Referred By Brett pleitez Referred To Contact Home Health Services Referral ID Status Reason Start Date Expiration Date Visits Re quested Visits Authorized [id number] 1 40 Encounter Details Date Type Department Care Team (Latest Contact Info) Description 01/23/2025 Home Care Visit [facility] [address] [place] [address] Alexus Arreaga, RN [facility] Social History Tobacco Use Types Packs/Day Years [...] doctor or pharmacy Never 01/11/2025 [facility] Utilities Answer Date Recorded In the [...] in the past 12 m [facility], were you homeless or living in [...] Author Status Yes 12/27/2024 3:34 AM Jonathan Shaw, SAGAR Active * Are you blind or do [...] st Contact Info) Description 01/24/2025 8:00 AM COIL BINDER Appointment [facility] [address] [place] [address] Vicky Juarez LPN 01/28/2025 11:15 AM COIL BINDER Appointment [facility] [address] [place] [address] Alexus Arreaga, RN 02/04/2025 12:00 PM COIL BINDER Appointment [facility] [address] [place] [address] Alexus Arreaga, RN 02/11/2025 11:30 AM COIL BINDER Appointment [facility] [address] [place] [address] Alexus Arreaga, RN 02/18/2025 9:00 AM COIL BINDER Appointment [facility] [address] [place] [address] Alexus Arreaga, RN 02/25/2025 8:00 AM COIL BINDER Appointment [facility] [address] [place] [address] Alexus Arreaga, RN 03/04/2025 8:00 AM COIL BINDER Appointment [facility] [address] [place] [address] Alexus Arreaga, RN 03/11/2025 8:00 AM COIL BINDER Appointment [facility] [address] [place] [address] Alexus Arreaga, RN documented as of this encounter Visit Diagnoses Not on filedocumented in this encounter Care Teams Slipper Maker Relationship Specialty Start Date End Date Sumit Caballero MD [address] [place] [address] PCP - General INTERNAL MEDICINE 11/30/18 documented as of this encounter
== END 2025-01-22 19:08 | disposition home or self-care (01) ==
LOC: CHSED 18:28
PROVIDERS: Emergency Provider Emergency Medicine; PCP Nurse Practitioner Family
DX: F41.9 Anxiety disorder, unspecified (principal); G89.29 Other chronic pain; E87.6 Hypokalemia; E78.5 Hyperlipidemia, unspecified; I10 Essential (primary) hypertension; J43.9 Emphysema, unspecified; Z79.899 Other long term (current) drug therapy
CPT/HCPCS: 36415; 71045; 80053; 83880; 84484; 85025; 85055; 85610; 85730; 93005; 99284; A9270

== ENCOUNTER 2025-02-10 17:07 | Emergency (ER) | payer OTHER, SELFPAY ==
--- OUTSIDE RECORDS SUMMARY | 2014-07-04 02:28 | XMS_ITS | Continuity of Care Document ---
Author Organization [facility] Address [address] [facility] [address] [place] [address] Phone Care Team Providers Care Electrician Manager Name Role Phone Roni Courtney MD Unavailable [...] Diagnoses Date Provider Providers Copied on Encounter [facility], [address], [facility], tel:[phone] [facility] No Information 5 Roz Tamayo. 1 [place], [place], [address]. tel:[phone] OFFICE/OUTPAT IENT VISIT EST [facility], [address], [address], tel:[phone] [facility] f/u mri (chief complaint) Disorder of bursae and tendons in shoulder regionOther affections of shoulder region, not elsewhere classified 5 Roz Tamayo. 621 [place], [place], [address]. tel:[phone] OFFICE/OUTPAT IENT VISIT [facility], [address] [facility] [facility], [place], [address], [place] tel:[phone] [facility] Disorder of bursae and tendons in shoulder region Teresa. [address] [facility] [address], [place], [place], [address]. tel:[phone] Family History Family Member Type Diagnosis Age At Onset No Information Payers Payer name Insurance type Covered green party ID Authoriza tion(s) No Information Social History [...]
--- OUTSIDE RECORDS SUMMARY | 2014-07-04 02:28 | XMS_ITS | Continuity of Care Document ---
Author Organization [facility] Address [address] [facility] [address] [place] [address] Phone Care Team Providers Care Order Picker/Assembler Name Role Phone Roni Courtney MD Unavailable [...] Diagnoses Date Provider Providers Copied on Encounter [facility], [address], [facility], tel:[phone] [facility] No Information 5 Roz Tamayo. 1 [place], [place], [address]. tel:[phone] OFFICE/OUTPAT IENT VISIT EST [facility], [address], [address], tel:[phone] [facility] f/u mri (chief complaint) Disorder of bursae and tendons in shoulder regionOther affections of shoulder region, not elsewhere classified 5 Roz Tamayo. 621 [place], [place], [address]. tel:[phone] OFFICE/OUTPAT IENT VISIT [facility], [address] [facility], [place], [address], [place] tel:[phone] [facility] Disorder of bursae and tendons in shoulder region Teresa. [address] [facility] [address], [place], [place], [address]. tel:[phone] Family History Family Member Type Diagnosis Age [...]
[2025-02-10 17:07] VITALS: BP 133/71; PULSE 73; RESP 17; TEMP 36.4; O2SAT 92
--- NOTE | 2025-02-10 17:14 | ED_ITS ---
HPI - General Adult General Chief complaint: Back Pain/Injury Stated complaint: pt. concerned about blood in stoma area Time Seen by Provider: 02/10/25 17:14 Source: patient Mode of arrival: ambulatory Limitations: no limitations History of Present Illness HPI narrative: 64 years old white female came to the ED complaining of irritation at the colostomy area since had January 02 2025. Patient have stoma care nurse once a week, scheduled to see her again in 3 days. Patient ran out of Percocet at the beginning of this month. Patient very anxious and cleaning around the stoma constantly which sometime trigger bleeding and irritation. Patient is telling me that she has schedule for reverse in 6 months and cannot wait. She denies any fever, chills, nausea, vomiting, abdominal pain. History of chronic lower back pain patient is concern about the back pain probably related to the stoma. Although the back pain is not different than before. Related Data Home Medications ?Medication ?Instructions ?Recorded ?Confirmed ?Last Taken ?Type gabapentin 100 mg capsule 100 mg PO TID 01/21/25 Unkn own History simvastatin 20 mg tablet 20 mg PO QPM 02/10/25 Unkno wn History Allergies Allergy/AdvReac Type Severity Reaction Status Date / Time Penicillins Allergy Intermediate Hives Verified 02/10/25 17:22 trimethobenzamide (Tigan) AdvReac Intermediate Vomiting Verified 02/10/25 17:22 varenicline (Chantix) AdvReac Intermediate Vomiting Verified 02/10/25 17:22 NSAIDS (Non-Steroidal AdvReac Mild abdominal Verified 02/10/25 17:22 Anti-Inflamma pain Review of Systems Review of Systems: All systems reviewed & are unremarkable except as noted in HPI and below PMFSH Past Medical History Medical History Kyphosis Emphysema lung Hyperlipidemia Hypertension Family History Family History Father Family history of type 2 diabetes mellitus Hypertension Mother Hypertension Sibling No problems noted. Social History Social History Smoking status: Current every day smoker Tobacco type: cigarettes Second hand tobacco smoke exposure: No Alcohol intake: never Substance use: never Do You Feel Safe in your Home?: Yes Lack of Transportation: No Lack of Food: Never True Current Housing: I Have Housing Concerned About Future Housing: No Difficulty Paying Gas/Electric Bills: No Difficulty Paying for Meds: No Currently Unemployed: No Difficulty w/ Childcare or Family Care: No Living arrangements: with family Gender identity (if verbalized by the patient): Female Sexual Orientation (if Verbalized by the Patient): Straight or Heterosexual Spiritual care concerns: No Agree to blood products: Yes Exam Narrative: General appearance: Well-developed, well-nourished Skin: Normal color Head: Normocephalic, nontraumatic Eyes: Clear conjunctiva ENT: Oropharynx normal, ears normal, nose normal Neck: Supple, nontender Chest and respiratory: Airway patent, no respiratory distress, no accessory muscle use Heart: Regular rate/rhythm Abdomen: Soft, nontender, no organomegaly, quiet bowel sounds, left colostomy bag in place, skin slightly red, no blisters, no bleeding, no warmth, no localized tenderness Musculoskeletal: Normal range of motion, nontender back Neurologic: Alert and oriented ?3, CASTING AGENT is normal as tested, no gross motor deficit Course Course Emergency Course: Differential diagnosis include anxiety, depression, skin irritation secondary to new colostomy bag placement. Vital signs are stable Physical examination as above Diagnosis anxiety, depression, chronic pain, difficulty to manage stoma. Patient was advised to follow the stoma care instructions and to ask home visiting nurse for more details The pt was discharged to home.the pt,s condition upon discharge was fair,education was provided to the pt in reference to the final impression,discharge study results,treatment,prognosis and need for follow up . Vital Signs Vital signs: Vital Signs Temperature 36.4 C 02/10/25 17:07 Pulse Rate 73 02/10/25 17:07 Respiratory Rate 17 02/10/25 17:07 Blood Pressure 133/71 02/10/25 17:07 Pulse Oximetry 92 02/10/25 17:07 Oxygen Delivery Room Air 02/10/25 17:07 Temperature 36.4 C 02/10/25 17:07 Pulse Rate 73 02/10/25 17:07 Respiratory Rate 17 02/10/25 17:07 Blood Pressure 133/71 02/10/25 17:07 Pulse Oximetry 92 02/10/25 17:07 Oxygen Delivery Room Air 02/10/25 17:07 Medical Decision Making Vital Signs Vital Signs: Vital Signs Temperature 36.4 C 02/10/25 17:07 Pulse Rate 73 02/10/25 17:07 Respiratory Rate 17 02/10/25 17:07 Blood Pressure 133/71 02/10/25 17:07 Pulse Oximetry 92 02/10/25 17:07 Oxygen Delivery Room Air 02/10/25 17:07 Temperature 36.4 C 02/10/25 17:07 Pulse Rate 73 02/10/25 17:07 Respiratory Rate 17 02/10/25 17:07 Blood Pressure 133/71 02/10/25 17:07 Pulse Oximetry 92 02/10/25 17:07 Oxygen Delivery Room Air 02/10/25 17:07 Critical Care Time Critical Care Time Critical Care Time: No Discharge Plan Discharge Clinical Impression: Difficulty managing care of stoma, Under care of stoma nurse Patient Disposition: Home Condition: Stable Instructions: Colostomy Care (ED) Additional Instructions: Return if symptoms are worsening , call your family physician for appointment, take Tylenol as as needed for aches and pain, continue home medications. Discussed this stoma care with your home visiting nurse on . Avoid too much cleaning around the stoma which can trigger bleeding and irritation Follow the colostomy care instructions Patient Language: Frisian Prescriptions: No Action gabapentin 100 mg capsule 100 mg PO TID potassium chloride [Klor-Con M20] 20 mEq tablet,ER particles/crystals 40 meq PO BID 3 Days Qty: 6 0RF ondansetron 4 mg tablet,disintegrating 4 mg PO Q6H PRN (Reason: nausea and vomiting) Qty: 14 0RF simvastatin 20 mg tablet 20 mg PO QPM lisinopril 20 mg tablet 10 mg PO HS Qty: 90 3RF metoprolol tartrate 25 mg tablet 25 mg PO DAILY Qty: 90 3RF naloxone 4 mg/actuation spray,non-aerosol 1 spray INTRANASAL ONCE PRN (Reason: opioid overdose) Qty: 2 0RF hydrochlorothiazide 12.5 mg capsule 12.5 mg PO DAILY Qty: 90 3RF Follow-up/Referrals: UNKNOWN,DOCTOR [Primary Care Provider]
[2025-02-10] MEDS: oxyCODONE HCL (*CRX) 5 MG TAB IR PO (17:37)
--- OUTSIDE RECORDS SUMMARY | 2025-02-10 18:35 | XMS_ITS ---
Author Organization Unknown Address [address] [place] [address] [phone] Phone Care Team Providers Care Oil Pipe Inspector Helper Name Role Phone GABBI SPAULDING Attending Unavailable NO PCP Primary Unavailable Social History Type Status Start Date End Date Code Code Syst em Sex Female Hospital Discharge Instructions Should you have any questions prior to discharge, please contact a member of your healthcare team. If you have left the hospital and have any questions, please contact your primary care physician. Reason For Referral No Data Found Plan of Treatment No Data Found Personal Care Team Section
--- OUTSIDE RECORDS SUMMARY | 2025-02-10 18:36 | XMS_ITS | Clinical Summary ---
Author Organization [facility] Address [address] [facility] [address] [place] [address] Care Team Providers Care Health Clinician Name Role Phone No, Physician Primary Care Provider [phone] Saroj Solano MD Unavailable [phone] Allergies Active Allergy Reactions Criticality Noted Date [...] Other Medical Brain surg. 200 0.; Comments: [facility] 05/06/2014 - Cancer (HCC) Family [...] on file Legal Sex Female 1:38 AM DAMPER WORKER Gender Identity Not on file Sexual Orientation Not on file Last Filed Vital Signs Vital Sign Reading Time Taken Comments Blood Pressure 181/96 05/24/2019 11:30 AM DAMPER WORKER Pulse 92 05/24/2019 11:30 AM DAMPER WORKER Temperature - - Respiratory Rate - - Oxygen Saturation - - Inhaled Oxygen Concentration - - Weight 78 kg (172 lb) 05/24/2019 11:30 AM DAMPER WORKER Height 171.5 cm (5' 7.5) 05/24/2019 11:30 AM CS T Body Mass Index 26.54 05/24/2019 11:30 AM DAMPER WORKER Plan of Treatment Not on file Insurance [facility] [employer] Care Teams Health Clinician Relationship Specialty Start Date End Date No, Physician PCP - General 04/18/19 Saroj Solano MD Family Medicine 04/18/19
--- OUTSIDE RECORDS SUMMARY | 2025-02-10 18:36 | XMS_ITS | Clinical Summary ---
Author Organization [facility] Address [address] [facility] [place] [address] Care Team Providers Care Exhauster Engineer Name Role Phone Tommie Archuleta MD Primary Care Provider [phone] Source Comments [facility] [employer],non-owned Affiliates and Associated Physician Practices is amultiple site organization consisting of ambulatory clinics and hospital sitesin [place], [place], [place] and [place]. This disclosure is being madepursuant to the Care Everywhere program and may not contain all information available regarding this patient. Last updated 17.[facility] [employer] Social History Tobacco Use Types Packs/Day Years Used Date Smoking Tobacco: Never Assessed Comments Unknown Sex and Gender Information Value Date Recorded Sex Assigned at Not on file Legal Sex Female 6:21 AM INSURANCE HEALTHCARE REPRESENTATIVE Gender Identity Not on file Sexual Orientation [...] 02/11/1977 DTAP/TDAP/TD VACCINES (1 - Tdap) 1978 PAP SMEAR 02/17/1980 Cervical Cancer Screening 1989 PAP with HPV 1989 PNEUMOCOCCAL VACCINE 50+ (1 of 1 - PCV) 2009 ZOSTER VACCINE (1 of 2) 2009 DEPRESSION SCREENING 03/20/2024 COVID-19 VACCINE (1 - 2024-2 6 season) 2024 INFLUENZA VACCINE (#1) 2024 Respiratory [...] patient's age to complete this topic Insurance [facility] Care Teams Exhauster Engineer Relationship Specialty Start Date End Date Tommie Archuleta MD [address] [address] PCP - General 05/21/18
--- OUTSIDE RECORDS SUMMARY | 2025-02-10 18:36 | XMS_ITS | Clinical Summary ---
Author Organization [facility] Address [address] [place] [address] Care Team Providers Care Editor Producer Name Role Phone Niru Diaz Primary Care Provider Allergies Active Allergy Reactions Criticality Noted Date Comments Varenicline Hives 01/08/2025 Iodine Chest pressure 01/28/2025 Nsaids Hives 01/08/2025 Penicillins Hives Low 11/30/2018 Pt has tolerated cefuroxime (07/2024), cefepime (12/2024) Trimethobenzamide Itching Medium 11/30/2018 Medications albuterol sulfate HFA (VENTOLIN HFA) 108 (90 Base) MCG/ACT inhalerIndica tions:sob Inhale 1-2 puffs into the lungs. Indications: sob 017 Active simvastatin 20 MG tablet Take 1 tablet (20 mg total) by mouth. 013 Active lisinopril (PRINIVIL) 20 MG tabletIndicat ions:Hyperten nory Take 1 tablet (20 mg total) by mouth daily. Indications: High Blood Pressure 90 tablet 3 025 2025 Active metoprolol tartrate (LOPRESSOR) 25 MG tabletIndicat ions:Hyperten nory Take 1 tablet (25 mg total) by mouth 2 (two) times daily. Indications: High Blood Pressure 60 tablet 2 025 Active hydroCHLOROth iazide (MICROZIDE) 12.5 MG capsuleIndica tions:Hyperte nsion Take 1 capsule (12.5 mg total) by mouth daily. Indications: High Blood Pressure 30 capsule 2 Active naloxone (NARCAN) 4 MG/0.1ML nasal sprayIndicati ons:Narcother apy 1 spray by Nasal route as needed for Opioid reversal. Indications: Psychotherapy Using Sedatives or Narcotics may repeat every 2 to 3 minutes in alternating nostrils until medical assistance becomes available 1 each 2025 Active Esomeprazole Magnesium 20 MG Tab ECIndications :gerd Take 40 mg by mouth daily. Indications: gerd Active acetaminophen (TYLENOL) 500 MG tabletIndicat ions:fever/pa in Take 1,000 mg by mouth every 6 (six) hours as needed for Fever or Pain. Indications: fever/pain Active omeprazole (PRILOSEC) 40 MG capsuleIndica tions:Gastroe sophageal Reflux Disease Take 1 capsule (40 mg total) by mouth daily. Indications: Gastroesophageal Reflux Disease 30 capsule Active oxyCODONE-carmen taminophen (PERCOCET) 5-325 MG tabletIndicat ions:Acute Pain < 7 Day Supply Take 1 tablet by mouth every 8 (eight) hours as needed. Indications: Acute Pain < 7 Day Supply 21 tablet 2024 Discontinued(F ormulary change) celecoxib (CELEBREX) 100 MG capsuleIndica tions:Acute Pain < 7 Day Supply Take 1 capsule (100 mg total) by mouth 2 (two) times daily for 30 doses. Indications: Acute Pain < 7 Day Supply 30 capsule 2024 gabapentin (NEURONTIN) 100 MG capsuleIndica tions:Acute Pain < 7 Day Supply Take 1 capsule (100 mg total) by mouth 3 (three) times daily for 14 days. Indications: Acute Pain < 7 Day Supply 42 capsule 2024 HYDROcodone-a cetaminophen (NORCO) 5-325 MG tabletIndicat ions:Acute Pain < 7 Day Supply Take 1 tablet by mouth every 6 (six) hours as needed. Indications: Acute Pain < 7 Day Supply 16 tablet 2024 Discontinued oxyCODONE-carmen taminophen (PERCOCET) 5-325 MG tabletIndicat ions:Acute Pain < 3 Day Supply Take 12 tablets by mouth every 8 (eight) hours as needed for Pain. Indications: Acute Pain < 3 Day Supply 12 tablet 025 2024 Discontinued(F ormulary change) polyethylene glycol (GLYCOLAX) packetIndicat ions:Constipa tion Take 240 mLs (17 g total) by mouth daily for 14 days. Indications: Constipation Dissolve powder in 240 mL water 14 each 025 2024 methocarbamol (ROBAXIN) 500 MG tabletIndicat ions:Abdomina l Pain Take 1 tablet (500 mg total) by mouth 4 (four) times daily for 10 days. Indications: Pain in the Abdominal Region 40 tablet 025 2024 HYDROcodone-a cetaminophen (NORCO) 5-325 MG tabletIndicat ions:Acute Pain < 7 Day Supply Take 1 tablet by mouth every 6 (six) hours as needed. Indications: Acute Pain < 7 Day Supply 10 tablet 025 2024 Active Problems Problem Noted Date Diagnosed Date [...] Encounters Date Type Department Care Team Description 01/31/2025 11:00 AM BISQUE KILN DRAWER Home Care Visit [facility] Home Care [place] [address] [place] [address] Alexus Arreaga RN SN OASIS DISCHARGE/ASSESSMENT 01/28/2025 9:10 AM BISQUE KILN DRAWER - 01/28/2025 2:40 PM BISQUE KILN DRAWER Emergency [facility] Emergency [address] [place] [address] Cherelle Ambrosio MD Medical Problem Discharge Disposition: Home or Self Care (Routine Discharge) 01/28/2025 Travel 01/27/2025 2:45 PM BISQUE KILN DRAWER Home Care Visit [place] [address] [place] [address] Alexus Arreaga, RN SN TELEPHONE CALL 01/26/2025 Home Care Visit [facility] [address] [place] [address] Quita Mejias, SAGAR CASE COMMUNICATION 01/24/2025 9:01 AM BISQUE KILN DRAWER - 01/24/2025 12:36 PM BISQUE KILN DRAWER Emergency [facility] Emergency [address] [place] [address] Bernardino Lyons DO Abdominal Pain Discharge Disposition: Home or Self Care (Routine Discharge) 01/24/2025 Travel 01/23/2025 Home Care Visit [place] [address] [place] [address] Alexus Arreaga, RN [facility] INTERDISCIPLINARY MT 01/21/2025 9:00 AM BISQUE KILN DRAWER Home Care Visit [place] [address] [place] [address] Sarika Villeda [facility] RN SN TELEPHONE CALL 01/17/2025 12:00 PM CDT Home Care Visit [place] [address] [place] [address] Alexus Arreaga, RN SN HOME VISIT 01/16/2025 9:45 AM CDT Home Care Visit [place] [address] [place] [address] Grace Farmer OT OT INITIAL EVALUATION 01/14/2025 4:31 PM CDT - 01/14/2025 10:46 PM CDT Emergency [facility] Emergency [address] [place] [address] Ez Reardon, Isabel Mccauley MD Medical Problem Discharge Disposition: Home or Self Care (Routine Discharge) 01/14/2025 1:00 PM CDT Home Care Visit [facility] [address] [place] [address] Sarika Villeda, WOC RN HH/HSPC ORIENTATION VISIT 01/14/2025 1:00 PM CDT Home Care Visit [place] [address] [place] [address] Niru Juarez LPN SN HOME VISIT 01/14/2025 11:00 AM CDT Home Care Visit [place] [address] [place] [address] Kristine Barreto, PT PT INITIAL EVALUATION 01/14/2025 Travel 01/14/2025 Home Care Visit [place] [address] [place] [address] Aida Foss, RN SN TELEPHONE CALL 01/12/2025 Home Care Visit [facility] [address] [place] [address] Sarika Abel, RN CASE COMMUNICATION 01/11/2025 11:00 AM CDT Home Care Visit [place] [address] [place] [address] Aida Foss, RN SN OASIS START OF CARE 01/11/2025 Plan of Care Documentation [place] [address] [place] [address] 01/08/2025 8:45 AM CDT Home Care Visit [place] [address] [place] [address] Artie Moulton RN SN NON ADMIT SOC 01/08/2025 4:39 AM CDT - 01/08/2025 7:41 AM CDT Emergency [facility] Emergency [address] [place] [address] Carlos Ricardo MD Surgery Follow Up Discharge Disposition: Home or Self Care (Routine Discharge) 01/08/2025 Travel 01/07/2025 1:15 PM CDT Home Care Visit [facility] [address] [place] [address] Maribel Sagastume RN SN NON ADMIT SOC 12/28/2024 12:34 PM CDT Anesthesia Event [facility] OR [address] [place] [address] Kaushik Burleson MD 12/28/2024 11:25 AM CDT - 12/28/2024 3:16 PM CDT Surgery [facility] OR [address] [place] [address] Niru Diaz, DO RE-LOOK LAPAROTOMY with creation of end colostomy 12/27/2024 6:23 AM CDT Anesthesia Event [facility] OR [address] [place] [address] Shan Mittal MD [place], Kaylie [facility] 12/27/2024 5:55 AM CDT - 12/27/2024 7:47 AM CDT Surgery [facility] OR [address] [place] [address] Niru Diaz, DO LAPAROTOMY EXPLORATORY WITH MOBILIZATION OF SPLENIC FLEXURE AND DESCENDING COLON RESECTION, ABTHERA WOUND VAC PLACEMENT 12/27/2024 2:43 AM CDT - 01/05/2025 3:46 PM CDT Hospital Encounter [facility] [address] [place] [address] Angel Gonzalez MD Imam, Michael M, DO [...] of experiencing loneliness or isolatio n Never 01/31/2025 OASIS [id number]: Transportation Answer Date Recorded Lack of Transportation (Medical) No 01/31/2025 Lack of Transportation (Non-Medical) No 01/31/2025 Patient Unable or Declines to Respond No 01/31/2025 OASIS [id number]: Health Literacy Answer Jeffery e Recorded Frequency of needing help to read materials from doctor or pharmacy Never 01/31/2025 [facility] Utilities Answer Date Recorded In the past 12 months has th e [employer], gas, oil, or water [employer] threatened to shut off services in your [...] any time in the past 12 m [facility], were you homeless or living in a senior living (including now)? No 12/27/2024 Comments No Sex and Gender Information Value Date Recorded Sex Assigned at Female 12/27/2024 3:39 AM CDT Legal Sex Female 1:27 AM CDT Gender Identity Female 12/27/2024 3:39 AM CDT Sexual Orientation Not on file Last Filed Vital Signs Vital Sign Reading Time Taken Comments Blood Pressure 134/68 01/31/2025 10:17 AM BISQUE KILN DRAWER Pulse 83 01/31/2025 10:17 AM BISQUE KILN DRAWER Temperature 36.8 C (98.3 F) 01/31/2025 10:17 AM BISQUE KILN DRAWER Respiratory Rate 16 01/31/2025 10:1 7 AM BISQUE KILN DRAWER Oxygen Saturation 98% 01/31/2025 10: 17 AM BISQUE KILN DRAWER Inhaled Oxygen Concentration - - Weight 68.9 kg (151 lb 14.4 oz) 01/28/2025 9:07 AM BISQUE KILN DRAWER Height 170.2 cm (5' 7) 01/28/2025 9:07 AM BISQUE KILN DRAWER Body Mass Index 23.79 01/28/2025 9:07 AM BISQUE KILN DRAWER Plan of Treatment Upcoming Encounters Date Type Department Care Team (Late st Contact Info) Description 02/20/2025 12:20 PM BISQUE KILN DRAWER Appointment [facility] [address] [place] [address] Cindy Payne MD [address] [place] [phone] Health Maintenance Due Date Last Done Comments [...] Procedure Name Priority Date/Time Associated Diagnosis Comments CT ABD+PEL W CON STAT 01/28/2025 1:20 PM BISQUE KILN DRAWER LACTIC ACID STAT 01/28/2025 9:50 AM BISQUE KILN DRAWER COMPREHENSIVE METABOLIC PANEL STAT 01/28/2025 9:50 AM BISQUE KILN DRAWER HC CBC AUTO W/AUTO DIFF STAT 01/28/2025 9:50 AM BISQUE KILN DRAWER BASIC METABOLIC PANEL STAT 01/24/2025 11:46 AM BISQUE KILN DRAWER CBC W/DIFF AUTOMATED STAT 01/24/2025 11:45 AM BISQUE KILN DRAWER HC CULTURE URINE W/COLONY CT Nurse Collected Priority 01/14/2025 8:27 PM CDT HC URINALYSIS AUTO W/MICRO Nurse Collected Priority 01/14/2025 8:27 PM CDT HC TROPONIN QN STAT 01/14/2025 8:00 PM CDT CTA ABD+PEL STAT 01/14/2025 7:25 PM CDT ECG 12-LEAD STAT 01/14/2025 6:31 PM CDT HC TROPONIN QN STAT 01/14/2025 5:04 PM CDT LACTIC ACID W REFLEX (SEPSIS) STAT 01/14/2025 5:04 PM CDT HC MAGNESIUM STAT 01/14/2025 5:04 PM CDT HC LIPASE STAT 01/14/2025 5:04 PM CDT HC COMPREHENSIVE METABOL PANEL STAT 01/14/2025 5:04 PM CDT HC CBC AUTO W/AUTO DIFF STAT 01/14/2025 5:04 PM CDT HC BLOOD CULTURE STAT 01/14/2025 5:03 PM CDT HC PHOSPHORUS Routine 01/04/2025 4:40 AM CDT HC MAGNESIUM Routine 01/04/2025 4:40 AM CDT HC BASIC METABOLIC PANEL Routine 01/04/2025 4:40 AM CDT HC CBC AUTO W/AUTO DIFF Routine 01/04/2025 4:40 AM CDT POCT GLUCOSE [...] W CON Today 01/02/2025 11:10 AM CDT HC PHOSPHORUS Routine 01/02/2025 5:31 AM CDT HC MAGNESIUM Routine 01/02/2025 5:31 AM CDT HC CBC AUTO W/AUTO DIFF Routine 01/02/2025 5:31 AM CDT HC BASIC METABOLIC PANEL Routine 01/02/2025 5:31 AM CDT POCT GLUCOSE - DOCKED DEVICE Routine 01/02/2025 12:43 AM CDT POCT GLUCOSE - DOCKED DEVICE Routine 01/01/2025 8:19 PM CDT HC TROPONIN QN STAT 01/01/2025 6:40 PM CDT ECG 12-LEAD STAT 01/01/2025 6:09 PM CDT POCT GLUCOSE - DOCKED DEVICE Routine 01/01/2025 3:58 PM CDT C AURIS,PCR,AXILLA/TERESA IN,NARES Routine 01/01/2025 12:50 PM CDT POCT GLUCOSE - DOCKED DEVICE Routine 01/01/2025 11:58 AM CDT POCT GLUCOSE - DOCKED DEVICE Routine 01/01/2025 5:12 AM CDT HC PHOSPHORUS Routine 01/01/2025 2:59 AM CDT HC MAGNESIUM Routine 01/01/2025 2:59 AM CDT HC CBC AUTO W/AUTO DIFF Routine 01/01/2025 2:59 AM CDT HC BASIC METABOLIC PANEL Routine 01/01/2025 2:59 AM CDT POCT GLUCOSE - DOCKED DEVICE Routine 01/01/2025 1:05 AM CDT POCT GLUCOSE - DOCKED DEVICE Routine 12/31/2024 12:35 PM CDT HC PHOSPHORUS Routine 12/31/2024 2:20 AM CDT HC MAGNESIUM Routine 12/31/2024 2:20 AM CDT HC CBC AUTO W/AUTO DIFF Routine 12/31/2024 2:20 AM CDT HC BASIC METABOLIC PANEL Routine 12/31/2024 2:20 AM CDT POCT GLUCOSE - DOCKED DEVICE Routine 12/31/2024 12:18 AM CDT HEMOGLOBIN AND HEMATOCRIT TIMED 12/30/2024 1:49 PM CDT POCT GLUCOSE - DOCKED DEVICE Routine 12/30/2024 11:05 AM CDT TRANSFUSE RED BLOOD CELLS Routine 12/30/2024 8:55 AM CDT POCT GLUCOSE - DOCKED DEVICE Routine 12/30/2024 5:33 AM CDT PRO-BRAIN NATRIURETIC PEPTIDE Routine 12/30/2024 2:31 AM CDT HC CBC AUTO W/AUTO DIFF Routine 12/30/2024 2:31 AM CDT HC BASIC METABOLIC PANEL Routine 12/30/2024 2:31 AM CDT HC MAGNESIUM Routine 12/30/2024 2:31 AM CDT HC PHOSPHORUS Routine 12/30/2024 2:31 AM CDT POCT GLUCOSE - DOCKED DEVICE Routine 12/29/2024 11:50 PM CDT POCT GLUCOSE - DOCKED DEVICE Routine 12/29/2024 8:06 PM CDT USE ECHO LTD Today 12/29/2024 12:25 PM CDT POCT GLUCOSE - DOCKED DEVICE Routine 12/29/2024 4:27 AM CDT HC MAGNESIUM Routine 12/29/2024 4:25 AM CDT HC PHOSPHORUS Routine 12/29/2024 4:25 AM CDT HC BASIC METABOLIC PANEL Routine 12/29/2024 4:25 AM CDT HC CBC AUTO W/AUTO DIFF Routine 12/29/2024 4:25 AM CDT POCT GLUCOSE - DOCKED DEVICE Routine 12/28/2024 11:34 PM CDT POCT GLUCOSE - DOCKED DEVICE Routine 12/28/2024 5:30 PM CDT EXPLORATORY OF ABDOMEN 12/28/2024 12:19 PM CDT bowel Case Notes OC #3ADDED ON 12/27/2024 @ [facility] 0730 POCT GLUCOSE - DOCKED DEVICE Routine 12/28/2024 6:21 AM CDT HC MAGNESIUM Routine 12/28/2024 3:32 AM CDT HC PHOSPHORUS Routine 12/28/2024 3:32 AM CDT HC BASIC METABOLIC PANEL Routine 12/28/2024 3:32 AM CDT HC CBC AUTO W/AUTO DIFF Routine 12/28/2024 3:32 AM CDT PATHOLOGY Routine [...] ECG 12-LEAD Routine 12/27/2024 10:15 AM CDT HC PHOSPHORUS STAT 12/27/2024 10:08 AM CDT HC LACTATE/LACTIC ACID STAT 12/27/2024 10:08 AM CDT HC MAGNESIUM STAT 12/27/2024 10:08 AM CDT HC CBC AUTO W/AUTO DIFF STAT 12/27/2024 10:08 AM CDT HC BASIC METABOLIC PANEL STAT 12/27/2024 10:08 AM CDT HC TROPONIN QN TIMED 12/27/2024 10:08 AM CDT POCT GLUCOSE [...] REFLEX (SEPSIS) TIMED 12/27/2024 5:54 AM CDT HC PROTHROMBIN TIME (PT) STAT 12/27/2024 5:54 AM CDT HC BLOOD CULTURE STAT 12/27/2024 5:53 AM CDT DRUG SCREEN RAPID Nurse Collected Priority 12/27/2024 5:42 AM CDT HC URINALYSIS AUTO W/MICRO Nurse Collected Priority 12/27/2024 5:42 AM CDT ECG 12-LEAD Routine 12/27/2024 4:17 AM CDT LACTIC ACID W REFLEX (SEPSIS) Routine 12/27/2024 4:10 AM CDT HC COMPREHENSIVE METABOL PANEL Routine 12/27/2024 4:10 AM CDT HC CBC AUTO W/AUTO DIFF Routine 12/27/2024 4:10 AM CDT HC TROPONIN QN TIMED 12/27/2024 4:10 AM CDT POCT GLUCOSE - DOCKED DEVICE Routine 12/27/2024 2:42 AM CDT PATHOLOGY Routine 12/27/2024 12:00 AM CDT MAMMOGRAM GENERIC (SCAN ORDER) Routine 11/30/2016 4:32 PM CDT COLONOSCOPY Routine 03/20/2009 12:00 AM BISQUE KILN DRAWER from Last 3 Months or Most Recently Relevant to Health Maintenance Results * CT ABD+PEL W ORAL and IV CON (01/28/2025 1:20 PM BISQUE KILN DRAWER) Only the most recent of2 resultswithin the time period is included. Anatomical Region Laterality Modality Abdomen Computed Tomogra phy 01/28/2025 1:44 PM BISQUE KILN DRAWER Impressions 01/28/2025 1:52 PM BISQUE KILN DRAWER IMPRESSION: 1. No CT evidence of active gastrointestinal hemorrhage on this single phase contrast enhanced CT. 2. 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 There is nonspecific fat stranding and mild mucosal hyperenhancement of the left colostomy. 3. 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 4. Stable chronic nonactionable findings, as detailed above. Referred By: Interpreted By: Paul Hunter MD, 01/28/2025 1:44 PM Narrative 01/28/2025 1:52 PM BISQUE KILN DRAWER [place] [address] PROCEDURE: CT ABD+PEL W CON HISTORY: Gastrointestinal bleeding. TECHNIQUE: Helical CT of the abdomen and pelvis was performed using non-ionic intravenous contrast (Isovue-370, 100 cc). There is congestive oral contrast partially opacifies the bowel. A dose lowering technique was used for this procedure, which may include, but is not limited to, dose reduction technique, automated exposure control, the use of iterative reconstruction, and ALARA (As Low As Reasonably Achievable) / Image Gently techniques. COMPARISON: CT angiography abdomen and pelvis, 01/06/[address] ABDOMEN/PELVIS: Lower thorax: There is subsegmental atelectasis in the lower lobes. The heart is normal in size. Small to moderate hiatal hernia. Liver: The liver is normal in size. There is no intrahepatic mass. Biliary tree: The patient is post cholecystectomy. There is no biliary ductal dilatation. Spleen: The spleen is normal in size. Pancreas: The pancreas is normal in size and enhances homogenously. Adrenal glands: The adrenal glands are normal in size and shape. Kidneys: There are bilateral symmetric nephrograms without hydronephrosis. Lymph nodes: Abdomen: There is no abdominal adenopathy. Pelvis: There is no pelvic adenopathy. Vasculature: There is no abdominal aortic aneurysm. Atherosclerotic calcification is seen. There is demonstration of focal dissection of the infrarenal abdominal aorta Peritoneum/mesentery/omentum: There is no free fluid or free air. GI tract: There is no bowel obstruction. Status post left hemicolectomy with left lower quadrant ostomy. No definite CT evidence of active gastric vessel hemorrhage. Pelvic urogenital structures:The bladder is grossly unremarkable. The uterus is not seen. There is no adnexal mass. Body wall: There are degenerative changes in the spine. No aggressive osseous lesions are identified. Postsurgical changes from midline laparotomy is redemonstrated. Freitas: (S/I) = series number / image number Procedure Note Paul Hunter MD - 01/28/[address] [address] PROCEDURE: CT ABD+PEL W CON HISTORY: Gastrointestinal bleeding. TECHNIQUE: Helical CT of the abdomen and pelvis was performed usingnon-ionic intravenous contrast (Isovue-370, 100 cc). There is congestiveoral contrast partially opacifies the bowel. A dose lowering technique was used for this procedure, which may include,but is not limited to, dose reduction technique, automated exposurecontrol, the use of iterative reconstruction, and ALARA (As Low AsReasonably Achievable) / Image Gently techniques. COMPARISON: CT angiography abdomen and pelvis, 01/06/[address] ABDOMEN/PELVIS: Lower thorax: There is subsegmental atelectasis in the lower lobes. Theheart is normal in size. Small to moderate hiatal hernia. Liver: The liver is normal in size. There is no intrahepatic mass. Biliary tree: The patient is post cholecystectomy. There is no biliaryductal dilatation. Spleen: The spleen is normal in size. Pancreas: The pancreas is normal in size and enhances homogenously. Adrenal glands: The adrenal glands are normal in size and shape. Kidneys: There are bilateral symmetric nephrograms withouthydronephrosis. Lymph nodes: Abdomen: There is no abdominal adenopathy. Pelvis: There is no pelvic adenopathy. Vasculature: There is no abdominal aortic aneurysm. Atheroscleroticcalcification is seen. There is demonstration of focal dissection of theinfrarenal abdominal aorta Peritoneum/mesentery/omentum: There is no free fluid or free air. GI tract: There is no bowel obstruction. Status post left hemicolectomywith left lower quadrant ostomy. No definite CT evidence of activegastric vessel hemorrhage. Pelvic urogenital structures:The bladder is grossly unremarkable. Theuterus is not seen. There is no adnexal mass. Body wall: There are degenerative changes in the spine. No aggressiveosseous lesions are identified. Postsurgical changes from midline laparotomy is redemonstrated. Freitas: (S/I) = series number / image number IMPRESSION: 1. No CT evidence of active gastrointestinal hemorrhage on this singlephase contrast enhanced CT. 2. Status post left hemicolectomy with left lower quadrant colostomy.There is nonspecific fat stranding and mild mucosal hyperenhancement ofthe left colostomy. 3. 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 4. Stable chronic nonactionable findings, as detailed above. Referred By: Interpreted By: Paul Hunter MD, 01/28/2025 1:44 PM Cherelle Ambrosio MD CT Final Result * LACTIC ACID - SINGLE (01/28/2025 9:50 AM BISQUE KILN DRAWER) Pathologist [facility] LACTIC ACID VENOUS 1.2 0.4 - 2.0 MMOL/L 01/28/2025 10:26 AM BISQUE KILN DRAWER [facility] BLOOD VENOUS BLOOD SPECIMEN / Unknown 01/28/2025 9:50 AM BISQUE KILN DRAWER us Cherelle Ambrosio MD LABORATORY Final Result [facility] [address] [place] [address], [id number] * (ABNORMAL) COMPREHENSIVE METABOLIC PANEL (01/28/2025 9:50 AM BISQUE KILN DRAWER) Pathologist [facility] SODIUM S/P/B 139 136 - 145 MMOL/L 01/28/2025 10:22 AM [facility] POTASSIUM S/P/B 4.3 3.5 - 5.1 MMOL/L 01/28/2025 10:22 AM [facility] CHLORIDE S/P/B 107 97 - 115 MMOL/L 01/28/2025 10:22 AM [facility] CO2 25.8 21.0 - 32.0 MMOL/L 01/28/2025 10:22 AM [facility] GLUCOSE 114(H) 74 - 106 MG/DL 01/28/2025 10:22 AM [facility] BUN 27(H) 7 - 18 MG/DL 01/28/2025 10:22 AM [facility] CREATININE S/P/B 0.72 0.55 - 1.02 MG/DL 01/28/2025 10:22 AM [facility] CALCIUM S/P/B 8.8 8.5 - 10.1 MG/DL 01/28/2025 10:22 AM [facility] BILIRUBIN TOTAL S/P/B 0.3 0.2 - 1.0 MG/DL 01/28/2025 10:22 AM [facility] ALKALINE PHOSPHATASE S/P/B 117 50 - 130 U/L 01/28/2025 10:22 AM [facility] AST 12(L) 15 - 37 U/L 01/28/2025 10:22 AM [facility] ALT 16 13 - 56 U/L 01/28/2025 10:22 AM [facility] TOTAL PROTEIN S/P/B 6.7 6.4 - 8.2 G/DL 01/28/2025 10:22 AM [facility] ALBUMIN S/P/B 2.9(L) 3.4 - 5.0 G/DL 01/28/2025 10:22 AM [facility] ANION GAP 6.2 2.0 - 10.0 MMOL/L 01/28/2025 10:22 AM [facility] DRAWER [facility] OSMOLALITY (CALC) 294 MOSM/KG 025 10:22 AM B[facility]IL[facility] DRAWER [facility] Comment:REFERENCE RANGE NOT ESTABLISHED GFR ESTIMATE >90 >90 ML/MIN/1. 73 M2 01/28/2025 10:22 AM BIS[facility] KILN DRAWER [facility] GFR NOTES GFR REFERENCE S: 01/28/2025 10:22 AM [facility] Comment: THE ESTIMATED [...] ml/min/1.73 m2 G5,KIDNEY FAILURE: <15 ml/min/1.73 m2 BLOOD VENOUS BLOOD SPECIMEN / Unknown 01/28/2025 9:50 AM BISQUE KILN DRAWER Cherelle mAbrosio MD LABORATORY Final Result [facility] [address] [place] [address], [id number] * (ABNORMAL) CBC W/DIFF AUTOMATED (01/28/2025 9:50 AM BISQUE KILN DRAWER) WBC 8.19 4.00 - 10.80 x10'3/uL 01/28/2025 9:59 AM BISQUE KILN DRAWER [facility] RBC 4.24 4.10 - 5.40 x10'6/uL 01/28/2025 9:59 AM BISQUE KILN DRAWER [facility] HGB 9.3(L) 12.0 - 16.0 G/DL 01/28/2025 9:59 AM BISQUE KILN DRAWER [facility] HCT 32.2(L) 36.0 - 47.0 % 01/28/2025 9:59 AM [facility] MCV 75.9(L) 78.0 - 100.0 FL 01/28/2025 9:59 AM [facility] MCH 21.9(L) 27.0 - 31.0 PG 01/28/2025 9:59 AM [facility] MCHC 28.9(L) 33.0 - 36.0 G/DL 01/28/2025 9:59 AM [facility] RDW 26.1(H) 11.5 - 14.5 % 01/28/2025 9:59 AM [facility] PLT 345 150 - 350 x10'3/uL 01/28/2025 9:59 AM [facility] MPV 8.4 7.4 - 10.4 FL 01/28/2025 9:59 AM [facility] DIFFERENTIAL TYPE AUTOMATED DIFFERENTIAL 01/28/2025 10:28 AM [facility] SEG NEUTROPHILS 59.7 % 10:28 AM [facility] LYMPHOCYTES 27.0 % 01/28/2025 10:28 AM [facility] MONOCYTES 7.1 % 01/28/2025 10:28 AM [facility] EOSINOPHILS 5.6 % 01/28/2025 10:28 AM [facility] BASOPHILS 0.4 % 01/28/2025 10:28 AM [facility] IMMATURE GRANS % 0.2 % 01/29/20 10:28 AM [facility] ABS. NEUTROPHILS 4.89 1.60 - 8.30 x10'3/uL 01/28/2025 10:28 AM [facility] ABS. LYMPHOCYTES 2.21 0.80 - 4.70 x10'3/uL 01/28/2025 10:28 AM [facility] ABS. MONOCYTES 0.58 0.00 - 1.50 x10'3/uL 01/28/2025 10:28 AM [facility] ABS. EOSINOPHILS 0.46(H) 0.00 - 0.40 x10'3/uL 01/28/2025 10:28 AM [facility] ABS. BASOPHILS 0.03 0.00 - 0.20 x10'3/uL 01/28/2025 10:28 AM [facility] ABS. IMMATURE GRANULOCYTES 0.02 0.00 - 0.03 x10'3/uL 01/28/2025 10:28 AM [facility] ABS. NUCLEATED RBC'S 0.00 0.00 - 0.01 x10'3/uL 01/28/2025 10:28 AM [facility] NRBC % 0.0 % 01/28/2025 10:28 AM [facility] RBC MORPHOLOGY SLIDE REVIEWED 2024 10:28 AM [facility] ANISO MARKED 01/28/2025 10:28 AM [facility] POIKLO MODERATE 01/28/2025 10:28 AM [facility] HYPOCHROMASIA MODERATE 01/28/2025 10:28 AM [facility] MICRO SLIGHT 01/28/2025 10:28 AM [facility] POLY SLIGHT 01/28/2025 10:28 AM [facility] OVALOCYTES PRESENT 01/28/2025 10:28 AM [facility] TARGET CELLS PRESENT 01/28/2025 10:28 AM [facility] ACANTHOCYTES PRESENT 01/28/2025 10:28 AM [facility] PLT EST. ADEQUATE 01/28/2025 10:28 AM [facility] BLOOD VENOUS BLOOD SPECIMEN / Unknown 01/28/2025 9:50 AM [employer] Cherelle Ambrosio MD LABORATORY Final Result [facility] [address] [place] [address], [phone] * (ABNORMAL) BASIC METABOLIC PANEL (01/24/2025 11:46 AM [employer]) Only the most recent of9 resultswithin the time period is included. SODIUM S/P/B 139 136 - 145 MMOL/L 01/24/2025 12:40 PM [facility] POTASSIUM S/P/B 4.0 3.5 - 5.1 MMOL/L 01/24/2025 12:40 PM [facility] CHLORIDE S/P/B 111 97 - 115 MMOL/L 01/24/2025 12:40 PM [facility] CO2 25.3 21.0 - 32.0 MMOL/L 01/24/2025 12:40 PM [facility] GLUCOSE 158(H) 74 - 106 MG/DL 01/24/2025 12:40 PM [facility] BUN 19(H) 7 - 18 MG/DL 01/24/2025 12:40 PM [facility] CREATININE S/P/B 0.86 0.55 - 1.02 MG/DL 01/24/2025 12:40 PM [facility] CALCIUM S/P/B 9.1 8.5 - 10.1 MG/DL 01/24/2025 12:40 PM [facility] ANION GAP 2.7 2.0 - 10.0 MMOL/L 01/24/2025 12:40 PM [facility] OSMOLALITY (CALC) 294 MOSM/KG 025 12:40 PM [facility] Comment:REFERENCE RANGE NOT ESTABLISHED GFR ESTIMATE 75(L) >90 ML/MIN/1. 73 M2 01/24/2025 12:40 PM [facility] GFR NOTES GFR REFERENCE S: 01/24/2025 12:40 PM [facility] Comment: THE ESTIMATED [...] ml/min/1.73 m2 G5,KIDNEY FAILURE: <15 ml/min/1.73 m2 01/24/2025 11:4 6 AM [employer] us Niru Diaz DO LABORATORY Final Resul t [facility] [address] [place] [address], [phone] * (ABNORMAL) CBC W/DIFF AUTOMATED (01/24/2025 11:45 AM [employer]) Only the most recent of11 resultswithin the time period is included. WBC 4.77 4.00 - 10.80 x10'3/uL 01/24/2025 12:10 PM [employer] [facility] RBC 4.24 4.10 - 5.40 x10'6/uL 01/24/2025 12:10 PM [employer] [facility] HGB 9.3(L) 12.0 - 16.0 G/DL 01/24/2025 12:10 PM [employer] [facility] HCT 31.9(L) 36.0 - 47.0 % 01/24/2025 12:10 PM [employer] [facility] MCV 75.2(L) 78.0 - 100.0 FL 01/24/2025 12:10 PM [employer] [facility] MCH 21.9(L) 27.0 - 31.0 PG 01/24/2025 12:10 PM [employer] [facility] MCHC 29.2(L) 33.0 - 36.0 G/DL 01/24/2025 12:10 PM [facility] RDW 27.7(H) 11.5 - 14.5 % 01/24/2025 12:10 PM [facility] PLT 410(H) 150 - 350 x10'3/uL 01/24/2025 12:10 PM [facility] MPV 8.4 7.4 - 10.4 FL 01/24/2025 12:10 PM [facility] DIFFERENTIAL TYPE AUTOMATED DIFFERENTIAL 01/24/2025 12:28 PM [facility] SEG NEUTROPHILS 81.4 % 12:28 PM [facility] LYMPHOCYTES 15.3 % 01/24/2025 12:28 PM [facility] MONOCYTES 2.9 % 01/24/2025 12:28 PM [facility] EOSINOPHILS 0.0 % 01/24/2025 12:28 PM [facility] BASOPHILS 0.2 % 01/24/2025 12:28 PM [facility] IMMATURE GRANS % 0.2 % 01/25/20 12:28 PM [facility] ABS. NEUTROPHILS 3.88 1.60 - 8.30 x10'3/uL 01/24/2025 12:28 PM [facility] ABS. LYMPHOCYTES 0.73(L) 0.80 - 4.70 x10'3/uL 01/24/2025 12:28 PM [facility] ABS. MONOCYTES 0.14 0.00 - 1.50 x10'3/uL 01/24/2025 12:28 PM [facility] ABS. EOSINOPHILS 0.00 0.00 - 0.40 x10'3/uL 01/24/2025 12:28 PM [facility] ABS. BASOPHILS 0.01 0.00 - 0.20 x10'3/uL 01/24/2025 12:28 PM [facility] [facility] ABS. IMMATURE GRANULOCYTES 0.01 0.00 - 0.03 x10'3/uL 01/24/2025 12:28 PM [employer] [facility] ABS. NUCLEATED RBC'S 0.00 0.00 - 0.01 x10'3/uL 01/24/2025 12:28 PM [employer] [facility] NRBC % 0.0 % 01/24/2025 12:28 PM [facility] [facility] RBC MORPHOLOGY SLIDE REVIEWED 2024 12:28 PM [employer] ANISO MODERATE 01/24/2025 12:28 PM [employer] [facility] POIKLO SLIGHT 01/24/2025 12:28 PM [employer] [facility] HYPOCHROMASIA MODERATE 01/24/2025 12:28 PM [employer] [facility] MICRO MODERATE 01/24/2025 12:28 PM [employer] [facility] POLY SLIGHT 01/24/2025 12:28 PM [employer] [facility] OVALOCYTES PRESENT 01/24/2025 12:28 PM [employer] [facility] TARGET CELLS PRESENT 01/24/2025 12:28 PM [facility] [facility] ACANTHOCYTES PRESENT 01/24/2025 12:28 PM [facility] PLT EST. INCREASED 01/24/2025 12:28 PM [facility] 01/24/2025 11:4 5 AM [employer] us Niru Diaz DO LABORATORY Final Resul t [facility] [address] [place] [address], [phone] * (ABNORMAL) URINALYSIS (01/14/2025 8:27 PM CDT) Only the most recent of2 resultswithin the time period is included. COLOR (U) LIGHT YELLOW 01/14/2025 9:50 PM CDT [facility] TRANSPARENCY CLEAR 01/14/2025 9:50 PM CDT [facility] SPECIFIC GRAVITY (U) 1.032 1.002 - 1.035 01/14/2025 9:50 PM CDT [facility] U PH 6.5 5 - 8 01/14/2025 9:50 PM CDT [facility] PROTEIN RANDOM (U) NEGATIVE NEGATIVE 01/14/2025 9:50 PM CDT [facility] GLUCOSE (U) NEGATIVE NEGATIVE MG/DL 01/14/2025 9:50 PM CDT [facility] KETONES MG/DL (U) NEGATIVE NEGATIVE 01/14/2025 9:50 PM CDT [facility] BILIRUBIN (U) NEGATIVE NEGATIVE 01/14/2025 9:50 PM CDT [facility] BLOOD (U) NEGATIVE NEGATIVE 01/14/2025 9:50 PM CDT [facility] NITRITES NEGATIVE NEGATIVE 01/14/2025 9:50 PM CDT [facility] UROBILINOGEN NORMAL 0 - 1 EU/DL 01/14/2025 9:50 PM CDT [facility] LEUKOCYTES (U) TRACE(A) NEGATIVE 01/14/2025 9:50 PM CDT [facility] RBC/HPF 1 0 - 3 /HPF 01/14/2025 9:50 PM CDT [facility] WBC/HPF 4 0 - 6 /HPF 01/14/2025 9:50 PM CDT [facility] BACTERIA (U) NONE /HPF 01/14/2025 9:50 PM CDT [facility] SQUAMOUS EPITHELIALS 2 01/14/2025 9:50 PM CDT [facility] URINE SPECIMEN OBTAINED BY CLEAN CATCH PROCEDURE / Unknown 01/14/2025 8:27 PM CDT Philip Alberto SEGMENT ASSEMBLER URINE ORDERABLES Final Resu lt Performing Organization Address [facility] Co de Phone Number [facility] [address] [place] [address], [phone] * CULTURE URINE (01/14/2025 8:27 PM CDT) SPEC DESCRIPTION URINE CLEAN CATCH 01/14/2025 8:27 PM CDT [facility] SPECIAL REQUESTS NO SPECIAL REQUEST 01/14/2025 8:27 PM CDT [facility] CULTURE RESULT NO GROWTH (< OR = 1,000 CFU/ML) 01/16/2025 11:58 AM CDT [facility] URINE SPECIMEN OBTAINED BY CLEAN CATCH PROCEDURE / Unknown 01/14/2025 8:27 PM CDT 01/14/2025 8:59 PM CDT Philip Alberto SEGMENT ASSEMBLER MICROBIOLOGY - GENERAL ORDE RABLES Final Result Performing Organization Address [facility] de Phone Number [facility] [address] [place] [address], [phone] * TROPONIN, QUANT (01/14/2025 8:00 PM CDT) Only the most recent of5 resultswithin the time period is included. TROPONIN I HIGH SENSITIVITY 49 0 - 53 ng/L 01/14/2025 9:28 PM CDT [facility] 01/14/2025 8:00 PM CDT Isabel Lan MD LABORATORY Final Result Performing Organization Address [facility] Co de Phone Number [facility] [address] [place] [address], [place] [phone] * CTA ABD+PEL (01/14/2025 7:25 PM CDT) [...] 7:40 PM Narrative 01/14/2025 7:56 PM CDT [place] [address] EXAMINATION: CTA abdomen and pelvis with contrast [...] Procedure Note Bebeto Wolff MD - 01/14/[address] [address] EXAMINATION: CTA abdomen and pelvis with contrast [...] By: Bebeto Wolff MD, 01/14/2025 7:40 PM Ez Reardon DO CT Final Resul t * ECG 12 lead (01/14/2025 6:31 PM CDT) Only the most recent of5 resultswithin the time period is included. ECG QT 364 [facility] ECG QTC 434 [facility] 01/14/2025 6:31 PM CDT Narrative [facility] - 01/15/2025 6:14 AM CDT SJS-ED Test Date: 2025-01-14 Pat Name: MAMI TAYLOR Department: 70 Room: EXAM CC Gender: Female Coach: : 1960 Requested By: EZ REARDON Order Number: [id number] Reading MD: Radha Nixon Measurements Intervals [place] Rate: 85 P: 38 HI: 167 QRS: 15 QRSD: 94 T: 33 QT: 364 QTc: 434 Interpretive Statements SINUS RHYTHM POSSIBLE RIGHT VENTRICULAR CONDUCTION DELAY ST DEVIATION AND MODERATE T-WAVE ABNORMALITY, CONSIDER LATERAL ISCHEMIA Procedure Note Radha Nixon MD - 01/15/2025 [facility]-ED Test Date: 2025-01-14 Pat Name: MAMI TAYLOR Department: 70 Room: EXAM CC Gender: Female Coach: : 1960 Requested By: EZ REARDON Order Number: [id number] Reading MD: Radha Nixon Measurements Intervals [place] Rate: 85 P: 38 HI: 167 QRS: 15 QRSD: 94 T: 33 QT: 364 QTc: 434 Interpretive Statements SINUS RHYTHM POSSIBLE RIGHT VENTRICULAR CONDUCTION DELAY ST DEVIATION AND MODERATE T-WAVE ABNORMALITY, CONSIDER LATERAL ISCHEMIA us Ez Reardon DO ECG ORDERABLES Final Resul t Performing Organization Address City/[facility]/ZIP Co de Phone Number [facility] * LACTIC ACID W REFLEX (SEPSIS) (01/14/2025 5:04 PM CDT) Only the most recent of3 resultswithin the time period is included. LACTIC ACID VENOUS 1.5 0.4 - 2.0 MMOL/L 01/14/2025 5:44 PM CDT [facility] 01/14/2025 5:04 PM CDT us Philip Alberto SEGMENT ASSEMBLER LABORATORY Final Resul t Performing Organization Address [facility] Co de Phone Number [facility] [address] [place] [address], [phone] * (ABNORMAL) COMPREHENSIVE METABOLIC PANEL (01/14/2025 5:04 PM CDT) Only the most recent of2 resultswithin the time period is included. SODIUM S/P/B 138 136 - 145 MMOL/L 01/14/2025 5:50 PM CDT [facility] POTASSIUM S/P/B 3.8 3.5 - 5.1 MMOL/L 01/14/2025 5:50 PM CDT [facility] CHLORIDE S/P/B 107 97 - 115 MMOL/L 01/14/2025 5:50 PM CDT [facility] CO2 26.3 21.0 - 32.0 MMOL/L 01/14/2025 5:50 PM CDT [facility] GLUCOSE 108(H) 74 - 106 MG/DL 01/14/2025 5:50 PM CDT [facility] BUN 14 7 - 18 MG/DL 01/14/2025 5:50 PM CDT [facility] CREATININE S/P/B 0.78 0.55 - 1.02 MG/DL 01/14/2025 5:50 PM CDT [facility] CALCIUM S/P/B 8.5 8.5 - 10.1 MG/DL 01/14/2025 5:50 PM CDT [facility] BILIRUBIN TOTAL S/P/B 0.2 0.2 - 1.0 MG/DL 01/14/2025 5:50 PM CDT [facility] ALKALINE PHOSPHATASE S/P/B 352(H) 50 - 130 U/L 01/14/2025 5:50 PM CDT [facility] AST 26 15 - 37 U/L 01/14/2025 5:50 PM CDT [facility] ALT 24 13 - 56 U/L 01/14/2025 5:50 PM CDT [facility] TOTAL PROTEIN S/P/B 6.8 6.4 - 8.2 G/DL 01/14/2025 5:50 PM CDT [facility] ALBUMIN S/P/B 2.8(L) 3.4 - 5.0 G/DL 01/14/2025 5:50 PM CDT [facility] ANION GAP 4.7 2.0 - 10.0 MMOL/L 01/14/2025 5:50 PM CDT [facility] OSMOLALITY (CALC) 287 MOSM/KG 025 5:50 PM CDT [facility] Comment:REFERENCE RANGE NOT ESTABLISHED GFR ESTIMATE 84(L) >90 ML/MIN/1. 73 M2 01/14/2025 5:50 PM CDT [facility] GFR NOTES GFR REFERENCE S: 01/14/2025 5:50 PM CDT [facility] Comment: THE ESTIMATED GFR IS [...] <15 ml/min/1.73 m2 01/14/2025 5:04 PM CDT Philip Alberto SEGMENT ASSEMBLER LABORATORY Final Resul t Performing Organization Address City/[facility] Co de Phone Number [facility] [address] [place] [address], [place] [phone] * (ABNORMAL) MAGNESIUM (01/14/2025 5:04 PM CDT) Only the most recent of9 resultswithin the time period is included. MAGNESIUM 1.5(L) 1.6 - 2.6 MG/DL 01/14/2025 5:50 PM CDT [facility] 01/14/2025 5:04 PM CDT Philip Alberto SEGMENT ASSEMBLER LABORATORY Final Resul t Performing Organization Address City/[facility] Co de Phone Number [facility] [address] [place] [address], [phone] * LIPASE (01/14/2025 5:04 PM CDT) LIPASE 54 13 - 75 UNITS/L 01/14/2025 5:50 PM CDT [facility] 01/14/2025 5:04 PM CDT Philip Alberto NP LABORATORY Final Resul t Performing Organization Address City/[facility] Co de Phone Number [facility] [address] [place] [address], [phone] * BLOOD CULTURE #1 (01/14/2025 5:03 PM CDT) Only the most recent of2 resultswithin the time period is included. SPEC DESCRIPTION BLOOD 01/14/2025 3:25 PM CDT [facility] SPECIAL REQUESTS NO SPECIAL REQUEST 01/14/2025 3:25 PM CDT [facility] CULTURE RESULT NO GROWTH 5 DAYS 01/19/2025 4:20 PM [employer] DRAWER [facility] BLOOD SPECIMEN OBTAINED FOR BLOOD CULTURE / Unknown 01/14/2025 5:03 PM CDT 01/14/2025 5:16 PM CDT Philip Alberto NP MICROBIOLOGY - GENERAL ORDE RABLES Final Result Performing Organization Address City/[facility]/ZIP Co de Phone Number [facility] [address] [place] [address], [phone] * PHOSPHORUS, INORGANIC PHOSPHATE (01/04/2025 4:40 AM CDT) Only the most recent of8 resultswithin the time period is included. PHOSPHORUS 4.3 2.5 - 4.9 MG/DL 01/04/2025 5:55 AM CDT [facility] 01/04/2025 4:40 AM CDT us Montez Molina MD LABORATORY Final Result Performing Organization Address City/[facility]/ZIP Co de Phone Number [facility] [address] [place] [address], [phone] * (ABNORMAL) POCT glucose (01/03/2025 11:22 AM CDT) Only the most recent of26 resultswithin the time period is included. [facility] GLUCOSE POC 194(H) 70 - 109 01/03/2025 11:32 AM CDT [facility] 01/03/2025 11:2 2 AM CDT us Montez Molina MD POCT ORDERABLES - DEVICE Final Result Performing Organization Address [facility] de Phone Number [facility] [address] [place] [address], [phone] * C AURIS,PCR,AXILLA/GROIN,NARES (01/01/2025 12:50 PM CDT) [facility] KAMLA AURIS (CLARITA/GROIN) Not Detected Not Detected 01/04/2025 2:12 PM CDT [facility] Comment: A Not Detected result [...] analytical performance characteristics have been determined by [employer], [place]. It has not been cleared or approved by the U.S. Food and Drug Administration. This assay has been validated pursuant to the CLIA regulations and is used for clinical purposes. Test Performed by [facility], [employer] [facility], [address] [place], [place] Mike Mitchell M.D., Ph.D., Director of Laboratories , [place] [id number] 01/01/2025 12:5 0 PM CDT us Montez Molina MD LABORATORY Final Result Performing Organization Address City/[facility]/ZIP Co de Phone Number [facility] [place] [phone] [place], [place] , [place] [phone] * (ABNORMAL) HEMOGLOBIN AND HEMATOCRIT (12/30/2024 1:49 PM CDT) HGB 7.9(L) 12.0 - 16.0 G/DL 12/30/2024 2:03 PM CDT [facility] HCT 28.0(L) 36.0 - 47.0 % 12/30/2024 2:03 PM CDT [facility] 12/30/2024 1:49 PM CDT us Montez Molina MD LABORATORY Final Result Performing Organization Address City/[facility] de Phone Number [facility] [address] [place] [address], [phone] * TRANSFUSE RED BLOOD CELLS (12/30/2024 11:22 AM CDT) Only the most recent of3 resultswithin the time period is included. Niru Diaz DO NURSING TREATMENT ORDERABLE S - BLOOD ADMIN Final Result * (ABNORMAL) PRO-BRAIN NATRIURETIC PEPTIDE (12/30/2024 2:31 AM CDT) PRO-B TYPE NATRIURETIC PEPTIDE 3,721(H) <125 PG/ML 12/30/2024 5:01 AM CDT [facility] Comment: AGE INDEPENDENT: <300 PG/ML [...] CDT Saima Hager MD LABORATORY Final Result [facility] [address] [place] [address], [phone] * USE ECHO [facility] (12/29/2024 12:25 PM CDT) Anatomical Region Laterality Modality Cardiac Echocardiogram 12/29/2024 9:54 AM CDT Narrative 12/29/2024 5:31 PM CDT Echocardiography Report Pat.Name: MAMI TAYLOR Pat.ID: [id number] .Date: 12/29/2024 Refer.MD: SAIMA HAGER Exam Time: 9:54:00 AM Study Type:ECHO WITH DOPPLER LIMITED Height: 67 in Weight: 170 lb BSA: 1.89 m2 Age: 11 1960,64Y Sex: F BP: 143/66 HR: 83 bpm Sonogrphr: Alicia Norwood [facility] Pat. Stat.:Inpatient Room: [facility] CPT - 4: 46890 [id number] Reason for Study:assess intracavitary gradient (LVOT), bubble [...] 12/29/2024 Echocardiography Report Pat.Name: MAMI TAYLOR Pat.ID: [id number] .Date: 12/29/2024 Refer.MD: SAIMA HAGER Exam Time: 9:54:00 AM Study Type:ECHO WITH DOPPLER LIMITED Height: 67 in Weight: 170 lb BSA: 1.89 m2 Age: 11 1960,64Y Sex: F BP: 143/66 HR: 83 bpm Sonogrphr: Alicia Norwood [facility] Pat. Stat.:Inpatient Room: [facility] CPT - 4: 56370 [id number] Reason for Study:assess intracavitary gradient (LVOT), bubble [...] resultswithin the time period is included. PATHOLOGY [facility] Department of Laboratory Medicine [address] [place] [address] , extension [phone] Pathology Report Surgical Pathology Report Name: MAMI TAYLOR Specimen #: [id number] Age: 11 1960 (Age: 64) Location: [facility] Sex: F Procedure Date: 12/28/2024 Hospital #: [id number] Date Received: 12/30/2024 Date Reported: 12/31/2024 Provider: [...] Gross examination (when applicable) was performed at [facility], [address] [place] [address]. This case was interpreted and signed out at [facility], [address] [place] [address]. Electronically Signed Out GARCÍA GROVES MD [facility] TISSUE (OTHER (TYPE IN COMMENTS)) 12/28/2024 1:30 PM CDT us Niru Diaz DO PATHOLOGY/CYTOLOGY ORDERABL ES Final Result [facility] [address] [place] [address], [phone] * USE ECHOCARDIOGRAM W CON (12/27/2024 2:05 PM CDT) Anatomical Region Laterality Modality NA Echocardiogram 12/27/2024 1:35 PM CDT Narrative 12/27/2024 2:54 PM CDT Echocardiography Report Pat.Name: MAMI TAYLOR Pat.ID: [id number] .Date: 12/27/2024 Refer.MD: [id number] NONE PROVIDER EWDPROV EWDPROV Exam Time: 1:35:00 PM Study Type:ECHO WITH CARDIAC DOPPLER COMP Height: 67 in Weight: 170 lb BSA: 1.89 m2 Age: 11 1960,64Y Sex: F BP: 118/53 HR: 81 bpm Sonogrphr: HAKEEM Briggs Pat. Stat.:Inpatient Room: [facility] CPT - 4: 09598 Reason for Study:Evaluate for thrombus/vegetations Procedures: 2D, [...] Mass 2D Value 159 g LV Mass [id number] Value 84.1 g/m2 Med MA LV Peak [...] 2.8 cm Right Ventricle 2.3 cm Major [place] 8.3 cm MMODE TA Tricuspid Annul 2.09 cm <Electronic Signature> 12/27/2024 02:54 PM Gerri Mcneal M.D. Procedure Note Gerri Mcneal, DO - 12/27/2024 Echocardiography Report Pat.Name: MAMI TAYLOR Pat.ID: [id number] .Date: 12/27/2024 Refer.MD: [id number] NONE PROVIDER EWDPROV EWDPROV Exam Time: 1:35:00 PM Study Type:ECHO WITH CARDIAC DOPPLER COMP Height: 67 in Weight: 170 lb BSA: 1.89 m2 Age: 11 1960,64Y Sex: F BP: 118/53 HR: 81 bpm Sonogrphr: HAKEEM Briggs Pat. Stat.:Inpatient Room: [facility] CPT - 4: 33886 Reason for Study:Evaluate for thrombus/vegetations Procedures: 2D, [...] Mass 2D Value 159 g LV Mass [id number] Value 84.1 g/m2 Med MA LV Peak [...] 2.8 cm Right Ventricle 2.3 cm Major [place] 8.3 cm MMODE TA Tricuspid Annul 2.09 cm <Electronic Signature> 12/27/2024 02:54 PM Gerri Mcneal M.D. Nirutanner Diaz DO ECHO Final Resul t * (ABNORMAL) POCT ACUTE ARTERIAL PANEL (12/27/2024 10:45 AM CDT) Only the most recent of2 resultswithin the time period is included. SODIUM WHOLE BLOOD 139 138 - 146 mmol/L 12/27/2024 10:51 AM CDT [facility] POTASSIUM WHOLE BLOOD 4.7 3.5 - 4.9 mmol/L 12/27/2024 10:51 AM T [facility] CA IONIZED WH BLOOD 1.12 1.12 - 1.32 mmol/L 12/27/2024 10:51 AM CDT [facility] POC PH ARTERIAL 7.285(L) 7.35 - 7.45 12/27/2024 10:51 AM CDT [facility] POC PCO2 ARTERIAL 39.8 35.0 - 45.0 MMHG 12/27/2024 10:51 AM T [facility] POC PO2 ARTERIAL 115(H) 80 - 105 MMHG 12/27/2024 10:51 AM T [facility] POC HCO3 ARTERIAL 18.9(L) 22 - 26 MMOL/L 12/27/2024 10:51 AM T [facility] POC TCO2 ARTERIAL 20(L) 23 - 27 MMOL/L 12/27/2024 10:51 AM T [facility] POC BASE DEFICIT ARTERIAL 8(H) 0 - 2 MMOL/L 12/27/2024 10:51 AM T [facility] POC HEMATOCRIT 29(L) 38 - 51 % 12/27/2024 10:51 AM T [facility] TIME TEST WAS PERFORMED: 1045 12/27/2024 10:51 AM [facility] 12/27/2024 10:4 5 AM CDT us Chidi Gallagher MD POCT ORDERABLES - DEVICE Final Result [facility] [address] [place] [address], [id number] * XR CHEST PORTABLE (12/27/2024 10:36 AM CDT) Anatomical Region Laterality Modality Chest Radiographic Mary ging 12/27/2024 1:44 PM CDT Impressions 12/27/2024 1:46 PM CDT IMPRESSION: The gastric tube is in the stomach. Referred By: PROVIDER NONE Interpreted By: Ayush Real MD, 12/27/2024 1:44 PM Narrative 12/27/2024 1:46 PM [address] [address] EXAM: XR CHEST PORTABLE DATE: 12/27/2024 1033 hours No comparison INDICATION: Gastric tube placement. TECHNIQUE: One view FINDINGS: Endotracheal tube is about 6 cm above the eunice. Gastric tube is in the stomach. Enlarged heart and central pulmonary vessels. Mild ill-defined lung densities. Procedure Note Ayush Real MD - 12/27/[address] [address] EXAM: XR CHEST PORTABLE DATE: 12/27/2024 1033 [...] - 2.0 MMOL/L 12/27/2024 10:52 AM CDT [facility] 12/27/2024 10:0 8 AM CDT Chidi Gallagher MD LABORATORY Final Result [facility] [address] [place] [address], [id number] * Art Line (12/27/2024 6:56 AM CDT) [...] (comment) (CHG imbedding tegaderm) Nathan Chicas MD HI ANESTHESIA Final Result * TYPE & SCREEN (12/27/2024 5:54 AM CDT) UNITS ORDERED 4 12/30/2024 6:44 AM CDT [facility] ABO/RH O POSITIVE 12/27/2024 6:35 AM CDT [facility] ANTIBODY SCREEN NEGATIVE 6:35 AM CDT [facility] SAMPLE EXPIRATION 12/30/2024,2359 12/27/2024 5:58 AM CDT [facility] BLOOD UNIT NUMBER [id number] 12/27/2024 7:10 AM CDT [facility] PRODUCT: PC LEUKOPOOR 12/27/2024 7:10 AM CDT [facility] UNIT DIVISION 00 12/27/2024 7:10 AM CDT [facility] BLOOD UNIT STATUS TRANSFUSED,FINAL 12/28/2024 1:49 AM CDT [facility] ISSUE DATE/TIME 025 1:49 AM CDT [facility] PRODUCT CODE [id number] 12/28/2024 1:49 AM CDT [facility] ABO/RH Unit O POS 12/28/2024 1:49 AM CDT [facility] ABO/RH UNIT ISBT CODE 5100 12/28/2024 1:49 AM CDT [facility] BLOOD UNIT EXPIRATION DATE [id number] 12/28/2024 1:49 AM CDT [facility] TRANSFUSION STATUS OK TO TRANSFUSE 12/27/2024 7:10 AM CDT [facility] CROSSMATCH COMPATIBLE-EXM 12/27/2024 7:10 AM CDT [facility] BLOOD UNIT NUMBER [id number] 12/27/2024 7:10 AM CDT [facility] PRODUCT: PC LEUKOPOOR 12/27/2024 7:10 AM CDT [facility] UNIT DIVISION 00 12/27/2024 7:10 AM CDT [facility] BLOOD UNIT STATUS TRANSFUSED,FINAL 12/28/2024 1:49 AM CDT [facility] ISSUE DATE/TIME [id number] 025 1:49 AM CDT [facility] PRODUCT CODE [id number] 12/28/2024 1:49 AM CDT [facility] ABO/RH Unit O POS 12/28/2024 1:49 AM CDT [facility] ABO/RH UNIT ISBT CODE 5100 12/28/2024 1:49 AM CDT [facility] BLOOD UNIT EXPIRATION DATE [id number] 12/28/2024 1:49 AM CDT [facility] TRANSFUSION STATUS OK TO TRANSFUSE 12/27/2024 7:10 AM CDT [facility] CROSSMATCH COMPATIBLE-EXM 12/27/2024 7:10 AM CDT [facility] BLOOD UNIT NUMBER [id number] 12/30/2024 8:35 AM CDT [facility] PRODUCT: PC LEUKOPOOR 12/30/2024 8:35 AM CDT [facility] UNIT DIVISION 00 12/30/2024 8:35 AM CDT [facility] BLOOD UNIT STATUS TRANSFUSED,FINAL 12/31/2024 1:09 AM CDT [facility] ISSUE DATE/TIME [id number] 025 1:09 AM CDT [facility] PRODUCT CODE [id number] 12/31/2024 1:09 AM CDT [facility] ABO/RH Unit O POS 12/31/2024 1:09 AM CDT [facility] ABO/RH UNIT ISBT CODE 5100 12/31/2024 1:09 AM CDT [facility] BLOOD UNIT EXPIRATION DATE [id number] 12/31/2024 1:09 AM CDT [facility] TRANSFUSION STATUS OK TO TRANSFUSE 12/30/2024 8:35 AM CDT [facility] CROSSMATCH COMPATIBLE-EXM 12/30/2024 8:35 AM CDT [facility] 12/27/2024 5:54 AM CDT us Angel Gonzalez MD BLOOD BANK TEST ORDERABLES Final Result [facility] [address] [place] [address], [id number] * (ABNORMAL) PROTIME/INR, VENOUS (PROTHROMBIN TIME) (12/27/2024 5:54 AM CDT) PROTIME 15.0(H) 9.4 - 12.5 SEC 12/27/2024 6:37 AM CDT [facility] INR 1.3(H) 0.8 - 1.1 12/27/2024 6:37 AM CDT [facility] 12/27/2024 5:54 AM CDT Niru Diaz DO LABORATORY Final Resul t [facility] [address] [place] [address], [id number] * (ABNORMAL) URINE DRUG SCREEN (TOXICOLOGY) (12/27/2024 5:42 AM CDT) [facility] PHENCYCLIDINE PCP (U) NEGATIVE NEGATIVE 12/27/2024 7:06 AM CDT [facility] BENZODIAZEPINES SCREEN (U) NEGATIVE NEGATIVE 12/27/2024 7:06 AM CDT [facility] COCAINE METABOLITES (U) NEGATIVE NEGATIVE 12/27/2024 7:06 AM CDT [facility] AMPHETAMINE (U) POSITIVE SCREEN RESULT, IF CONFIRMATION DESIRED PLEASE CONTACT LAB WITHIN ONE WEEK. (A) NEGATIVE 12/27/2024 7:06 AM CDT [facility] CANNABINOIDS SCREEN (U) NEGATIVE NEGATIVE 12/27/2024 7:06 AM CDT [facility] OPIATE SCREEN (U) POSITIVE SCREEN RESULT, IF CONFIRMATION DESIRED PLEASE CONTACT LAB WITHIN ONE WEEK. (A) NEGATIVE 12/27/2024 7:06 AM CDT [facility] BARBITURATES SCREEN (U) NEGATIVE NEGATIVE 12/27/2024 7:06 AM CDT [facility] URINE TOX COMMENT Unconfirmed screening results are to be used only for medical purposes. 12/27/2024 5:54 AM CDT [facility] CUTOFF CONCENTRATION (U) Cut-off Concentration for a positive result 12/27/2024 5:54 AM CDT [facility] Comment: Phencyclidine 25 ng/mL Benzodiazepines 200 ng/mL Cocaine 300 ng/mL Amphetamine 1000 ng/mL Cannabinoids 50 ng/mL Opiates 300 ng/mL Barbiturates 200 ng/mL URINE SPECIMEN / Unknown 12/27/2024 5:42 AM CDT us Niru Diaz DO URINE ORDERABLES Final Resu lt [facility] [address] [place] [address], [id number] * MAMMOGRAM GENERIC (11/30/2016 4:32 PM CDT) Anatomical Region Laterality Modality Other 11/30/2016 4:32 PM CDT 11/30/2016 4:32 PM CDT Narrative 11/30/2016 4:41 PM CDT MAMI TAYLOR ADMIT/SERVICE DATE: 11/18/16 ACCT: [id number] DISCHARGE DATE: : 1960 SEX: F ORD SITE: [facility] PT TYPE: REG CLI ORDERING MD: SHAN DUNBAR MD STUDY DATE REPORT # ORDER # EXT ORDER ID 11/18/16 [id number]; [id number]; [id number]; [id number]; [id number] PROC CODE: AXILNVRT PROCEDURE DESCRIPTION: US AXILLA [...] IF CLINICALLY INDICATED. EXAMINATION: BILATERAL SCREENING MAMMOGRAM [id number], [id number] COMPARISON: OUTSIDE STUDY 07/29/2011. TISSUE DENSITY: THE [...] EXAMINATION: BILATERAL DIAGNOSTIC MAMMOGRAM WITH BILATERAL ULTRASOUND. [id number], [id number] CLINICAL HISTORY: BILATERAL AXILLARY PAIN COMPARISON: NONE [...] - 01/11/2018 MAMI TAYLOR ADMIT/SERVICE DATE:11/18/16 ACCT: [id number] DISCHARGE DATE: : 1960 SEX: F ORD SITE: [facility] PT TYPE: REG CLI ORDERING MD:SHAN DUNBAR MD STUDY DATE REPORT # ORDER # EXT ORDER ID 11/18/16 [id number]; [id number]; [id number]; [id number]; [id number] PROC CODE: AXILNVRT PROCEDURE DESCRIPTION: US AXILLA [...] IF CLINICALLY INDICATED. EXAMINATION: BILATERAL SCREENING MAMMOGRAM [id number], [id number] COMPARISON: OUTSIDE STUDY 07/29/2011. TISSUE DENSITY: THE [...] EXAMINATION: BILATERAL DIAGNOSTIC MAMMOGRAM WITH BILATERAL ULTRASOUND. 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 DRAWER) 03/20/2009 03/20/2009 Narrative [facility] CONVERSION - 03/20/2009 12:00 AM BISQUE KILN DRAWER Documented hx of procedure Procedure Note Jaime Echevarria MD - 01/21/2018 Documented hx of procedure us Generic Conversion Md ECHEVARRIA GI PROCEDURE ORDERABLES Final Result Performing Organization Address City/State/[facility] Co de Phone Number [facility] TO EPIC CONVERSION from Last 3 Months or Most Recently Relevant to Health Maintenance Insurance [facility] Advance Directives * Full Code (Latest Code Status on File) Date Activated Date Inactivated Comments 01/21/2025 1:22 PM 01/24/2025 8:53 AM * Full Code Date Activated Date Inactivated Comments 01/13/2025 9:52 AM 01/14/2025 3:11 PM * Full Code Date Activated Date Inactivated Comments 01/12/2025 9:43 PM 01/13/2025 9:36 AM * Full Code Date Activated Date Inactivated Comments 12/27/2024 6:46 AM 01/05/2025 5:52 PM * Full Code Date Activated Date Inactivated Comments 12/27/2024 3:44 AM 12/27/2024 6:45 AM Care Teams Editor Producer Relationship Specialty Start Date End Date Niru Diaz DO [address] [place] [id number] PCP - General Surgical Critical Care 01/24/25
--- OUTSIDE RECORDS SUMMARY | 2025-02-10 18:39 | XMS_ITS ---
Author Organization Unknown Address [address] [place] [address] [phone] Phone Care Team Providers Care Bed Laster Name Role Phone GABBI SPAULDING Attending Unavailable [...]
== END 2025-02-10 17:45 | disposition home or self-care (01) ==
LOC: CHSED 17:42
PROVIDERS: Emergency Provider Emergency Medicine
DX: Z43.3 Encounter for attention to colostomy (principal); J43.9 Emphysema, unspecified; I10 Essential (primary) hypertension; E78.5 Hyperlipidemia, unspecified; F17.210 Nicotine dependence, cigarettes, uncomplicated; Z79.899 Other long term (current) drug therapy
CPT/HCPCS: 99283; A9270

== ENCOUNTER 2025-02-11 06:16 | Emergency (ER) | payer OTHER, SELFPAY ==
[2025-02-11 06:16] VITALS: BP 135/59; PULSE 77; RESP 16; TEMP 36.3; O2SAT 99
--- NOTE | 2025-02-11 06:37 | ED_ITS ---
HPI - General Adult General Chief complaint: Unspecified Stated complaint: medication refill Source: patient Mode of arrival: ambulatory History of Present Illness HPI narrative: 64 years old white female drove herself to the emergency room to get a refill for Percocet. Patient report history of close knee December 2024 and history of chronic back pain. Ran out of Percocet. She denies any fever, chills, nausea, vomiting or abdominal pain Related Data Home Medications ?Medication ?Instructions ?Recorded ?Confirmed ?Last Taken ?Type gabapentin 100 mg capsule 100 mg PO TID 01/21/25 Unkn own History simvastatin 20 mg tablet 20 mg PO QPM 02/10/25 Unkno wn History Allergies Allergy/AdvReac Type Severity Reaction Status Date / Time Penicillins Allergy Intermediate Hives Verified 02/10/25 17:22 trimethobenzamide (Tigan) AdvReac Intermediate Vomiting Verified 02/10/25 17:22 varenicline (Chantix) AdvReac Intermediate Vomiting Verified 02/10/25 17:22 NSAIDS (Non-Steroidal AdvReac Mild abdominal Verified 02/10/25 17:22 Anti-Inflamma pain Review of Systems Review of Systems: All systems reviewed & are unremarkable except as noted in HPI and below PMFSH Past Medical History Medical History Kyphosis Emphysema lung Hyperlipidemia Hypertension Family History Family History Father Family history of type 2 diabetes mellitus Hypertension Mother Hypertension Sibling No problems noted. Social History Social History Smoking status: Current every day smoker Tobacco type: cigarettes Second hand tobacco smoke exposure: No Alcohol intake: never Substance use: never Do You Feel Safe in your Home?: Yes Lack of Transportation: No Lack of Food: Never True Current Housing: I Have Housing Concerned About Future Housing: No Difficulty Paying Gas/Electric Bills: No Difficulty Paying for Meds: No Currently Unemployed: No Difficulty w/ Childcare or Family Care: No Living arrangements: with family Gender identity (if verbalized by the patient): Female Sexual Orientation (if Verbalized by the Patient): Straight or Heterosexual Spiritual care concerns: No Agree to blood products: Yes Exam Narrative: General appearance: Well-developed, well-nourished Skin: Normal color Head: Normocephalic, nontraumatic Eyes: Clear conjunctiva ENT: Oropharynx normal, ears normal, nose normal Neck: Supple, nontender Chest and respiratory: Airway patent, no respiratory distress, no accessory muscle use Heart: Regular rate/rhythm Abdomen: Soft, nontender, no organomegaly, quiet bowel sounds Vascular: Normal peripheral pulses, normal capillary refill. 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, no gross motor deficit Course Vital Signs Vital signs: Vital Signs Temperature 36.3 C L 02/11/25 06:16 Pulse Rate 77 02/11/25 06:16 Respiratory Rate 16 02/11/25 06:16 Blood Pressure 135/59 L 02/11/25 06:16 Pulse Oximetry 99 02/11/25 06:16 Oxygen Delivery Room Air 02/11/25 06:16 Temperature 36.3 C L 02/11/25 06:16 Pulse Rate 77 02/11/25 06:16 Respiratory Rate 16 02/11/25 06:16 Blood Pressure 135/59 L 02/11/25 06:16 Pulse Oximetry 99 02/11/25 06:16 Oxygen Delivery Room Air 02/11/25 06:16 Medical Decision Making MDM Narrative Medical decision making narrative: Patient came to the ED to get refill for Percocet Re fill. Patient was informed that narcotic cannot be prescribed in the emergency room and she needs to follow up with family physician for that. Vital Signs Vital Signs: Vital Signs Temperature 36.3 C L 02/11/25 06:16 Pulse Rate 77 02/11/25 06:16 Respiratory Rate 16 02/11/25 06:16 Blood Pressure 135/59 L 02/11/25 06:16 Pulse Oximetry 99 02/11/25 06:16 Oxygen Delivery Room Air 02/11/25 06:16 Temperature 36.3 C L 02/11/25 06:16 Pulse Rate 77 02/11/25 06:16 Respiratory Rate 16 02/11/25 06:16 Blood Pressure 135/59 L 02/11/25 06:16 Pulse Oximetry 99 02/11/25 06:16 Oxygen Delivery Room Air 02/11/25 06:16 Discharge Plan Discharge Clinical Impression: Chronic pain Patient Disposition: Home Condition: Stable Instructions: Chronic Pain (ED) Additional Instructions: Return if symptoms are worsening , call your family physician for appointment, take Tylenol as as needed for aches and pain, continue home medications. Patient Language: Slovak Prescriptions: No Action gabapentin 100 mg capsule 100 mg PO TID potassium chloride [Klor-Con M20] 20 mEq tablet,ER particles/crystals 40 meq PO BID 3 Days Qty: 6 0RF ondansetron 4 mg tablet,disintegrating 4 mg PO Q6H PRN (Reason: nausea and vomiting) Qty: 14 0RF simvastatin 20 mg tablet 20 mg PO QPM lisinopril 20 mg tablet 10 mg PO HS Qty: 90 3RF metoprolol tartrate 25 mg tablet 25 mg PO DAILY Qty: 90 3RF naloxone 4 mg/actuation spray,non-aerosol 1 spray INTRANASAL ONCE PRN (Reason: opioid overdose) Qty: 2 0RF hydrochlorothiazide 12.5 mg capsule 12.5 mg PO DAILY Qty: 90 3RF Follow-up/Referrals: UNKNOWN,DOCTOR [Primary Care Provider]
== END 2025-02-11 06:41 | disposition home or self-care (01) ==
PROVIDERS: Emergency Provider Emergency Medicine
DX: M54.9 Dorsalgia, unspecified (principal); G89.29 Other chronic pain; J43.9 Emphysema, unspecified; E87.5 Hyperkalemia; I10 Essential (primary) hypertension; F17.210 Nicotine dependence, cigarettes, uncomplicated
CPT/HCPCS: 99281

== ENCOUNTER 2025-02-24 19:37 | Emergency (ER) | payer OTHER, SELFPAY ==
--- NOTE | ~2025-02-24 | XR_ITS ---
EXAMINATION: XR chest 1V portable DATE: 02/24/2025 20:22 INDICATION: Cough. TECHNIQUE: A single frontal view of the chest was obtained. COMPARISON: Chest x-ray 01/22/2025 FINDINGS: Cardiomegaly. No acute pulmonary findings. Linear opacities in the periphery of right lung are stable. Probable fibrosis. IMPRESSION: 1. Limited portable AP chest shows no acute findings. No significant change from 01/22/2025. Reviewed, dictated and finalized at location [facility] IMPRESSION: 1. Limited portable AP chest shows no acute findings. No significant change fro 01/22/2025.
[2025-02-24 19:38] VITALS: BP 172/73; PULSE 74; RESP 20; TEMP 35.7; O2SAT 94
--- NOTE | 2025-02-24 19:41 | ED_ITS ---
HPI - URI/Sore Throat General Chief Complaint: Upper Respiratory Infection Stated Complaint: sore throat Time Seen by Provider: 02/24/25 19:41 Source: patient Mode of arrival: ambulatory Limitations: no limitations History of Present Illness HPI Narrative: Patient is a 65-year-old female with multiple chronic conditions here for sore throat and cough for the past 2 weeks. She has not seen a primary doctor for th is problem. No chest pain or shortness of breath. She said she has white spots on the back of her throat. MD elicited complaint: cough and sore throat Pertinent past history: other (Chronic colostomy and chronic abdominal pain (not today problem)) Onset (ago): week(s) (Two) Consistency: constant Severity: moderate Pain scale (0-10): 5 Description of mucous: yellow Able to tolerate fluids by mouth: Yes Exacerbating factors: swallowing Relieving factors: nothing Context: other (Patient having a sore throat and a cough for the past 2 weeks) Associated symptoms: cough Treatments prior to arrival: none Related Data Home Medications ?Medication ?Instructions ?Recorded ?Confirmed ?Last Taken ?Type gabapentin 100 mg capsule 100 mg PO TID 01/21/25 Unkn own History simvastatin 20 mg tablet 20 mg PO QPM 02/10/25 Unkno wn History Allergies Allergy/AdvReac Type Severity Reaction Status Date / Time Penicillins Allergy Intermediate Hives Verified 02/10/25 17:22 trimethobenzamide (Tigan) AdvReac Intermediate Vomiting Verified 02/10/25 17:22 varenicline (Chantix) AdvReac Intermediate Vomiting Verified 02/10/25 17:22 NSAIDS (Non-Steroidal AdvReac Mild abdominal Verified 02/10/25 17:22 Anti-Inflamma pain Review of Systems Review of Systems: All systems reviewed & are unremarkable except as noted in HPI and below Constitutional: Constitutional: Reports no additional constitutional complaints Eyes: Eyes: Reports no additional eye complaints ENT: Reports system reviewed and no additional complaints, except as documented Cardiovascular: Cardiovascular: Reports no additional cardiovascular complaints Respiratory: Respiratory: Reports no additional respiratory complaints Gastrointestinal: Gastrointestinal: Reports no additional gastrointestinal complaints Genitourinary: Genitourinary: Reports no additional female genitourinary complaints Musculoskeletal: Musculoskeletal: Reports no additional musculoskeletal complaints Integumentary/Breasts: Skin/Breast: Reports system reviewed and no additional complaints, except as docu Neurologic: Reports system reviewed and no additional complaints, except as documented Psychiatric: Psychiatric: Reports no additional psychiatric complaints Endocrine: Endocrine: Reports no additional endocrine complaints Hematologic/Lymphatic: Hematologic/Lymphatic: Reports no additional hematologic/lymphatic complaints Allergic/Immunologic: Allergic/Immunologic: Reports no additional allergic/immunologic complaints PMFSH Past Medical History Medical History Kyphosis Emphysema lung Hyperlipidemia Hypertension Family History Family History Father Family history of type 2 diabetes mellitus Hypertension Mother Hypertension Sibling No problems noted. Social History Social History Smoking status: Current every day smoker Tobacco type: cigarettes Second hand tobacco smoke exposure: No Alcohol intake: never Substance use: never Lack of Transportation: No Lack of Food: Never True Current Housing: I Have Housing Concerned About Future Housing: No Difficulty Paying Gas/Electric Bills: No Difficulty Paying for Meds: No Currently Unemployed: No Difficulty w/ Childcare or Family Care: No Living arrangements: with family Gender identity (if verbalized by the patient): Female Sexual Orientation (if Verbalized by the Patient): Straight or Heterosexual Spiritual care concerns: No Agree to blood products: Yes Exam Const: General: healthy appearing Nutritional Appearance: well nourished Orientation/consciousness: patient oriented x3 Limitations: no limitations HENMT: Head: normal to inspection Ears: external ears normal Face/Nose/Sinus: Normal external nose present Eyes: Conjunctivae: conjunctivae normal Pupils: Equal, round and reactive pupils present EOM: EOMs intact bilaterally Neck: Neck: normal visual inspection Chest: Chest palpation & inspection: normal inspection of the chest Resp: Effort & Inspection: normal respiratory effort and not labored Auscultation: clear to auscultation bilaterally and no crackles Cardio: Rate: regular rate Rhythm: regular rhythm Heart sounds: no murmurs GI: Inspection: non-distended GI Palp: Yes Soft to palpation and No Tenderness to palpation present (GI) Auscultation: normal bowel sounds and Hyperactive bowel sounds present Other: Baseline examination for this patient; colostomy appropriate and baseline : General: Yes bladder normal to palpation Back/Spine/Pelvis: Back: no CVA tenderness Skin: General skin exam: normal color Rashes: no rashes Wounds: no wounds Neuro: General: patient oriented x3, moves all extremities and no meningeal signs Extrem: General: normal to inspection Psych: Mental Status: mental status grossly normal Affect: normal affect Attitude: cooperative Course Vital Signs Vital signs: Vital Signs Temperature 35.7 C L 02/24/25 19:38 Pulse Rate 74 02/24/25 19:38 Respiratory Rate 20 02/24/25 19:38 Blood Pressure 172/73 H 02/24/25 19:38 Pulse Oximetry 94 02/24/25 19:38 Oxygen Delivery Room Air 02/24/25 19:38 Temperature 35.7 C L 02/24/25 19:38 Pulse Rate 74 02/24/25 19:38 Respiratory Rate 20 02/24/25 19:38 Blood Pressure 172/73 H 02/24/25 19:38 Pulse Oximetry 94 02/24/25 19:38 Oxygen Delivery Room Air 02/24/25 19:40 MDM [facility] Narrative Medical decision making narrative: Patient is a 65-year-old female with chronic conditions and now sore throat and a cough for the past 2 weeks. I spent a few minutes initially talking to the patient about her chronic conditions and said these all have to be addressed with the primary doctor and that we are not doing pain medication as there has b een recurrent seeking behaviors. Patient frequents the emergency room 8-10 times a month and typically for abdominal pain and pain control. We are going to deal with a sore throat and the cough at this time. Strep and COVID panel testing. Chest x-ray. Workup was completely negative. This is likely all thrush. We will go ahead and do azithromycin Z-Jeison and nystatin. The cough does appear to be bronchial in nature and we will do the Z-Jeison for coverage. We will also give her some oral Diflucan tablets to assist with resolution of the oral and esophageal thrush. Differential Diagnosis Differential Diagnosis: Pharyngitis, tonsillitis, thrush Lab Data [facility] Lab Attestation statement: I personally reviewed the patient's lab results. Labs: Lab Results 02/24/25 02/24/25 Range/Units 19:49 19:50 Influenza A (RT-PCR) Negative (Negative) Influenza B (RT-PCR) Negative (Negative) RSV (RT-PCR) Negative (Negative) SARS-CoV-2 RNA (RT-PCR) Negative (Negative) Group A Strep (PCR) Not detected (Negative) Imaging Data Attestation: I personally reviewed and interpreted this imaging study as follows: Radiologist's impression: ITS Impressions Chest X-Ray 02/24/25 20:23 IMPRESSION: 1. Limited portable AP chest shows no acute findings. No significant change from 01/22/2025. Discharge Plan Discharge Clinical Impression: Candidiasis of mouth, Bronchitis Patient Disposition: Home Condition: Stable Instructions: Antibiotic Form, Oral Candidiasis (ED), Acute Bronchitis (ED) Patient Language: Italian Prescriptions: New azithromycin 250 mg tablet See Rx Instructions .ROUTE .COMPLEX Qty: 6 0RF Rx Instructions: For 250 mg dose pack: take 500 mg today (day 1), then 250 mg for 4 days (days 2-5) nystatin 100,000 unit/mL suspension 5 ml PO QID PRN (Reason: sore throat) 10 Days Qty: 473 0RF Rx Instructions: swish and swallow fluconazole 200 mg tablet 200 mg PO DAILY 3 Days Qty: 3 0RF No Action gabapentin 100 mg capsule 100 mg PO TID potassium chloride [Klor-Con M20] 20 mEq tablet,ER particles/crystals 40 meq PO BID 3 Days Qty: 6 0RF ondansetron 4 mg tablet,disintegrating 4 mg PO Q6H PRN (Reason: nausea and vomiting) Qty: 14 0RF simvastatin 20 mg tablet 20 mg PO QPM naloxone 4 mg/actuation spray,non-aerosol 1 spray INTRANASAL ONCE PRN (Reason: opioid overdose) Qty: 2 0RF hydrochlorothiazide 12.5 mg capsule 12.5 mg PO DAILY Qty: 90 3RF duloxetine [Cymbalta] 30 mg capsule,delayed release(DR/EC) 30 mg PO DAILY Qty: 30 0RF Tussin Long-Acting 15 mg/5 mL liquid 15 mg PO Q8H PRN (Reason: cough) Qty: 118 0RF metoprolol tartrate 25 mg tablet 25 mg PO DAILY Qty: 90 3RF lisinopril 20 mg tablet 10 mg PO HS Qty: 90 3RF Follow-up/Referrals: UNKNOWN,DOCTOR [Non-Staff] Time of Disposition: 20:52
--- NOTE | 2025-02-24 19:52 | PC.NURSE ---
covid swab sent to lab
[2025-02-24 20:18] LABS: Strep Group A RT-PCR NOT DETECTED (Negative)
[2025-02-24 20:32] LABS: Influenza A QL RT-PCR Negative (Negative); Influenza B QL RT-PCR Negative (Negative); RSV RNA, RT-PCR Negative (Negative); SARS-CoV-2 RNA PCR Negative (Negative)
[2025-02-24] MEDS: AZITHROMYCIN 250 MG TABLET 500 MG PO (20:53)
== END 2025-02-24 21:06 | disposition home or self-care (01) ==
PROVIDERS: Emergency Provider Emergency Medicine; PCP Family Medicine
DX: B37.0 Candidal stomatitis (principal); J40 Bronchitis, not specified as acute or chronic; J43.9 Emphysema, unspecified; E78.5 Hyperlipidemia, unspecified; I10 Essential (primary) hypertension; F17.210 Nicotine dependence, cigarettes, uncomplicated; Z20.822 Contact with and (suspected) exposure to COVID-19
CPT/HCPCS: 71045; 87637; 87651; 99283; A9270

== ENCOUNTER 2025-03-17 18:24 | Emergency (ER) | payer OTHER, SELFPAY ==
--- NOTE | ~2025-03-17 | XR_ITS ---
XR chest 1V portable INDICATION:Dizziness . REFERENCE: 02/24/2025 FINDINGS: A single AP of the chest demonstrates enlarged heart. Fibrotic changes are stable. There is no evidence of pneumothorax or pleural effusion. IMPRESSION: Stable fibrotic changes. No focal consolidation, pleural effusion or pneumothorax. Reviewed, dictated and finalized at location S. F ORTHOPTIST IMPRESSION: Stable fibrotic changes. No focal consolidation, pleural effusion or pneumothor ax.
--- NOTE | ~2025-03-17 | CT_ITS ---
CT brain wo con HISTORY:Dizziness COMPARISON: None. TECHNIQUE: Axial images were obtained of the head without intravenous contrast. FINDINGS: No acute intracranial hemorrhage, mass effect or midline shift. No extra-axial fluid collections. The calvarium is intact. Visualized paranasal sinuses and mastoid air cells are clear. IMPRESSION: No acute intracranial hemorrhage or extra axial fluid collections. All CT scans at this facility are performed using low dose modulation techniques as appropriate to perform exam including the following: automated exposure control; use of iterative reconstruction technique; adjustment of the mA and/or kV according to patient size (this includes techniques or standardized protocols for targeted exams where dose is matched to indication/reason for exam). Reviewed, dictated and finalized at location S. GER POOL IMPRESSION: No acute intracranial hemorrhage or extra axial fluid collections. All CT scans at this facility are performed using low dose modulation techniqu es as appropriate to perform exam including the following: automated exposure c ontrol; use of iterative reconstruction technique; adjustment of the mA and/or kV according to patient size (this includes techniques or standardized protocol s for targeted exams where dose is matched to indication/reason for exam).
[2025-03-17 18:24] VITALS: BP 151/67; PULSE 96; RESP 20; TEMP 36.6; O2SAT 100
--- NOTE | 2025-03-17 18:29 | ED_ITS ---
HPI - Dizziness General Chief Complaint: Dizziness Stated Complaint: dizzy x 2 months Time Seen by Provider: 03/17/25 18:28 Source: patient Mode of arrival: ambulatory Limitations: no limitations History of Present Illness HPI Narrative: 65 years old white female came to the ED by private car from home complaining of lightheadedness and dizziness for months got worse lately she is tired of feeling that feeling. Worse with activity, better laying down still. Patient report sometime everything spins associated with nausea and diaphoresis. Patient is status post colon resection December 2024. Patient on aspirin Patient denies any fever, chills, nausea vomiting chest pain or shortness of breath Related Data Home Medications ?Medication ?Instructions ?Recorded ?Confirmed ?Last Taken ?Type simvastatin 20 mg tablet 20 mg PO QPM 02/10/25 Unknown History Allergies Allergy/AdvReac Type Severity Reaction Status Date / Time Penicillins Allergy Intermediate Hives Verified 03/17/25 18:28 trimethobenzamide (Tigan) AdvReac Intermediate Vomiting Verified 03/17/25 18:28 varenicline (Chantix) AdvReac Intermediate Vomiting Verified 03/17/25 18:28 NSAIDS (Non-Steroidal AdvReac Mild abdominal Verified 03/17/25 18:28 Anti-Inflamma pain Review of Systems 2 Review of Systems: All systems reviewed & are unremarkable except as noted in HPI and below PMFSH Past Medical History Medical History Stye external (07/26/11) Joint pain of ankle and foot (07/19/11) Irritable bowel syndrome (IBS) (11/18/11) History of uterine cancer (04/08/11) GERD (gastroesophageal reflux disease) (10/10/11) Shoulder pain (07/26/11) Rhinitis medicamentosa (04/10/12) Rash (09/19/11) Radicular pain (07/26/11) Other constipation (04/08/11) Nicotine dependence (03/09/12) Migraine without aura (04/08/11) Hematochezia (07/19/11) Headache (04/10/12) Foot laceration (02/14/12) Cough (07/19/11) Chronic low back pain (04/10/12) Chronic constipation (04/08/11) Atypical chest pain (12/07/11) Acute pharyngitis (10/10/11) Acute bronchitis (03/09/12) Abdominal pain (09/19/11) Kyphosis Emphysema lung Hyperlipidemia Hypertension Family History Family History Father Family history of type 2 diabetes mellitus Hypertension Mother Hypertension Diabetes mellitus Sibling No problems noted. Social History Social History Smoking status: Current every day smoker Tobacco type: cigarettes Second hand tobacco smoke exposure: No Alcohol intake: never Substance use: never Substance use type: does not use Lack of Transportation: No Lack of Food: Never True Current Housing: I Have Housing Concerned About Future Housing: No Difficulty Paying Gas/Electric Bills: No Difficulty Paying for Meds: No Currently Unemployed: No Education: Grade School Difficulty w/ Childcare or Family Care: No Living arrangements: with family Gender identity (if verbalized by the patient): Female Sexual Orientation (if Verbalized by the Patient): Straight or Heterosexual Spiritual care concerns: No Agree to blood products: Yes Exam 2 Narrative: General appearance: Well-developed, well-nourished Skin: Normal color Head: Normocephalic, nontraumatic Eyes: Clear conjunctiva ENT: Oropharynx normal, ears normal, nose normal Neck: Supple, nontender Chest and respiratory: Airway patent, no respiratory distress, no accessory muscle use Heart: Regular rate/rhythm Abdomen: Soft, colostomy bag left abdomen, no organomegaly, quiet bowel sounds Vascular: Normal peripheral pulses, normal capillary refill. Musculoskeletal: Normal range of motion, nontender back Neurologic: Alert and oriented ?3, [employer] is normal as tested, no gross motor deficit Course Vital Signs Vital signs: Vital Signs Temperature 36.6 C 03/17/25 18:24 Pulse Rate 96 03/17/25 18:24 Respiratory Rate 20 03/17/25 18:24 Blood Pressure 151/67 H 03/17/25 18:24 Pulse Oximetry 100 03/17/25 18:24 Oxygen Delivery Room Air 03/17/25 18:24 Temperature 36.6 C 03/17/25 18:24 Pulse Rate 96 03/17/25 19:28 Respiratory Rate 20 03/17/25 18:24 Blood Pressure 141/66 H 03/17/25 19:28 Pulse Oximetry 100 03/17/25 18:24 Oxygen Delivery Room Air 03/17/25 18:24 [facility] Narrative Medical decision making narrative: Patient presents with dizziness, lightheadedness for months worse in the last few days. Vital signs stable Physical examination left colostomy bag, slight diffuse tenderness around the back, normal color stool Differential diagnosis: Anxiety like symptoms, depression, orthostatic hypotension, electrolyte imbalance, dehydration Blood workup today includes CBC, CMP showed hemoglobin 7.6 compared to 9.6 January 22, patient currently on baby aspirin once a day/no anticoagulant medication. Otherwise within normal limit Urinalysis showed no evidence of infection CT head without contrast showed no acute abnormality Chest x-ray showed no acute abnormalities Diagnosis lightheadedness and anemia. Anemia high likely the underlying cause of patient constant lightheadedness. Patient need to be transferred to [facility] for endoscopy to rule out the possibility of GI bleed. Patient declined and would like to sign AMA. I declare that I have personally explained to the patient the risks and consequences involved in leaving this facility at this time. the benefits of continued treatment and/or hospitalization. And the alternatives. If any. to continued treatment and/or hospitalization. if applicable.I have not identified any psychosis, drugs, mental illness, or medical illness that alters decision- making capacity (reasoning abilities ). Differential Diagnosis Differential Diagnosis: As above Medical Records I have reviewed the following patient records and this information was taken into consideration when formulating the assessment and plan.: previous labs, previous ER visits, previous hospitalizations and previous clinic visits Lab Data [facility] Lab Attestation statement: I personally reviewed the patient's lab results. 03/17/25 18:58 03/17/25 18:58 Labs: Lab Results 03/17/25 03/17/25 Range/Units 18:58 19:32 WBC 9.1 (4.8-10.8) K/mm3 RBC 3.59 L (4.20-5.40) M/mm3 Hgb 7.6 L (11.7-13.8) g/dL Hct 28.1 L (35.0-42.0) % MCV 78.3 (78.0-102.0) fL MCH 21.2 L (27.0-31.0) pg MCHC 27.0 L (32-36) g/dL RDW 18.8 H (11.6-14.4) % Plt Count 353 (150-420) K/mm3 MPV 8.5 L (9.2-11.8) fl Immature Gran % (Auto) 0.4 H (0.0-0.0) % Neut % (Auto) 66.4 (50.0-70.0) % Lymph % (Auto) 20.9 (18.0-42.0) % [place] % (Auto) 5.8 (2.0-11.0) % Eos % (Auto) 5.8 (1.0-6.0) % Baso % (Auto) 0.7 (0.0-1.0) % Lymph # (Auto) 1.91 (1.10-4.50) K/mm3 [place] # (Auto) 0.53 (0.10-0.90) K/mm3 Eos # (Auto) 0.53 H (0.02-0.50) K/mm3 Baso # (Auto) 0.06 (0.00-0.10) K/mm3 Abs Immat Gran (auto) 0.04 H (0.00-0.00) K/mm3 Absolute Neuts (auto) 6.07 (1.70-7.20) K/mm3 Absolute Nucleated RBC 0.00 (0.00-0.00) K/mm3 Nucleated RBC % 0.0 (0-0.0) % Sodium 149 H (137-145) mmol/L Potassium 3.7 (3.4-5.0) mmol/L Chloride 116 H (98-107) mmol/L Carbon Dioxide 20 L (22-30) mmol/L Anion Gap 13 H (4-12) mmol/L BUN 22 H (7-17) mg/dL Creatinine 0.96 (0.7-1.0) mg/dL Estim Creat Clear Calc 49 ml/min Estimated GFR 58 L (59 - ) Glucose 130 H (65-110) mg/dL Calculated Osmolality 313 H (285-295) mOsm/kg Calcium 8.5 (8.4-10.2) mg/dL Total Bilirubin < 0.1 L (0.2-1.3) mg/dL AST 21 (14-36) U/L ALT 17 (6-35) U/L Alkaline Phosphatase 137 H (38-126) U/L Total Protein 6.6 (6.3-8.2) g/dL Albumin 3.8 (3.5-5.1) g/dL Urine Color Light yellow (Yellow) Urine Appearance Clear (Clear) Urine pH 5.0 (5.0-8.0) Ur Specific Marshall 1.020 (1.010-1.020) Urine Protein Negative (Negative) Urine Glucose (UA) Negative (Negative) Urine Ketones Negative (Negative) Ur Blood (Man) Negative (Negative) Urine Nitrate Negative (Negative) Urine Bilirubin Negative (Negative) Urine Urobilinogen 0.2 (0.2-1.0) mg/dL Leukocyte Esterase Rfl Negative (Negative) LOREE/UL Imaging Data Radiologist's impression: ITS Impressions Chest X-Ray 03/17/25 19:24 IMPRESSION: Stable fibrotic changes. No focal consolidation, pleural effusion or pneumothorax. Head CT 03/17/25 19:31 IMPRESSION: No acute intracranial hemorrhage or extra axial fluid collections. All CT scans at this facility are performed using low dose modulation techniques as appropriate to perform exam including the following: automated exposure control; use of iterative reconstruction technique; adjustment of the mA and/or kV according to patient size (this includes techniques or standardized protocols for targeted exams where dose is matched to indication/reason for exam). ECG Data EKG #1: Attestation: I personally reviewed and interpreted this ECG as follows: ECG completion date: 03/17/25 Interpretation: 0 normal sinus rhythm at 91 beats per minute, LVH and ST-T changes, abnormal EKG, compared to EKG on January 22 2025 no new changes Critical Care Time Critical Care Time Critical Care Time: No Discharge Plan Discharge Clinical Impression: Light-headedness, Anemia Patient Disposition: Left Against Medical Advice Condition: Guarded Prognosis Patient Language: Polish Prescriptions: No Action potassium chloride [Klor-Con M20] 20 mEq tablet,ER particles/crystals 40 meq PO BID 3 Days Qty: 6 0RF simvastatin 20 mg tablet 20 mg PO QPM doxycycline monohydrate 100 mg capsule 100 mg PO BID Qty: 20 0RF guaifenesin 600 mg tablet extended release 12hr 600 mg PO Q12H PRN (Reason: congestion) Qty: 20 0RF hydrochlorothiazide 12.5 mg capsule 12.5 mg PO DAILY Qty: 90 3RF metoprolol tartrate 25 mg tablet 25 mg PO DAILY Qty: 90 3RF lisinopril 20 mg tablet 10 mg PO HS Qty: 90 3RF hydrocodone-acetaminophen 5-325 mg tablet 1 tablet PO Q6H PRN (Reason: pain) Qty: 10 0RF Follow-up/Referrals: Sarika Dewey FISH NET MAKER [Advanced Practice Nurse, [facility]]
--- NOTE | 2025-03-17 18:41 | ECG_ITS ---
Test Date: 2025-03-17 19:03:07 Measurements Intervals Howard Rate: 91 P: 52 IL: 159 QRS: -3 QRSD: 82 T: 109 QT: 343 QTc: 424 Interpretive Statements SINUS RHYTHM INCOMPLETE RIGHT BUNDLE BRANCH BLOCK LEFT VENTRICULAR HYPERTROPHY AND ST-T CHANGE MINIMAL Q WAVES- HIGH LATERAL LEADS ST-T WAVE ABNORMALITY IN ANTEROLATERAL LEADS- CONSIDER ISCHEMIA ABNORMAL ECG Compared to ECG 01/22/2025 18:49:09 Ventricular premature complex(es) no longer present POSSIBLE ISCHEMIA NOW PRESENT Electronically Signed On 03-17-2025 21:47:52 DRILLER MACHINE by Og Tavarez D.O.
[2025-03-17 19:02] LABS: Hematocrit 28.1 % (35.0-42.0); Hemoglobin 7.6 g/dL (11.7-13.8); Immature Granulocyte Percent A 0.4 % (0.0-0.0); Lymphocytes Absolute Auto 1.91 K/mm3 (1.10-4.50); Mean Corpuscular HGB Conc 27.0 g/dL (32-36); Mean Corpuscular Hemoglobin 21.2 pg (27.0-31.0); Mean Corpuscular Volume 78.3 fL (78.0-102.0); Nucleated Red Blood Cells Absolute Auto 0.00 K/mm3 (0.00-0.00); Nucleated Red Blood Cells Perc 0.0 % (0-0.0); Platelet Count Result 353 K/mm3 (150-420); Red Blood Count 3.59 M/mm3 (4.20-5.40); White Blood Count 9.1 K/mm3 (4.8-10.8)
[2025-03-17 19:13] LABS: Alanine Aminotransferase 17 U/L (6-35); Albumin Level 3.8 g/dL (3.5-5.1); Alkaline Phosphatase 137 U/L (38-126); Anion Gap 13 mmol/L (4-12); Aspartate Amino Transferase 21 U/L (14-36); Bilirubin,Total < 0.1 mg/dL (0.2-1.3); Blood Urea Nitrogen 22 mg/dL (7-17); Calcium 8.5 mg/dL (8.4-10.2); Carbon Dioxide 20 mmol/L (22-30); Chloride 116 mmol/L (98-107); Estimated CRCL calculation 49 ml/min; Estimated Glomerular Filt Rate 58; Glucose 130 mg/dL (65-110); Osmolality Calculated 313 mOsm/kg (285-295); Potassium 3.7 mmol/L (3.4-5.0); Sodium 149 mmol/L (137-145); Total Protein 6.6 g/dL (6.3-8.2)
--- OUTSIDE RECORDS SUMMARY | 2025-03-17 19:15 | XMS_ITS ---
Author Organization Unknown Address [address] [place] [phone] Phone Care Team Providers Care Automatic Pilot Mechanic Name Role Phone MADAN Valentin Attending Unavailable NO PCP Primary Unavailable Social [...] Found Plan of Treatment No Data Found Encounters Encounter Diagnosis Start Date Code Code Sys tem Essential hypertension 02/27/2025 [id number] [facility] D-CT Personal Care Team Section
--- OUTSIDE RECORDS SUMMARY | 2025-03-17 19:15 | XMS_ITS | Encounter Summary ---
Author Organization [facility] Address [address] [place] [address] Care Team Providers Care Clam Grower Name Role Phone Thad Henry MD Unavailable [phone] Sumit Caballero MD Primary Care Provider [phone] Saima Calderón MD Unavailable [phone] Reason for Visit * Reason Onset Date Comments Advice 03/17/2025 Lightheaded. Encounter Details Date Type Department Care Team (Late st Contact Info) Description 03/17/2025 Telephone [facility] [address] [place] [address] Saima Calderón MD [address] [place] [address] Advice (Lightheaded. ) Social History Tobacco Use Types Packs/Day Years Used Date Smoking Tobacco: Every Day Cigarettes Smokeless Tobacco: Current Alcohol Use Standard Drinks/Week Comments Not Currently 0 (1 standard drink = 0.6 oz pur e alcohol) OASIS D0700: Social Isolation Answer Da te [...] materials from doctor or pharmacy Never 01/31/2025 [facility] Utilities Answer Date Recorded In the past 12 months has th e [employer], gas, oil, or water incuBET threatened to shut off services in your [...] any time in the past 12 m [facility], were you homeless or living in a [...] Date Author Status No 12/27/2024 3:34 AM Jontahan Shaw RN Active documented in this encounter Progress Notes * Sandra Mclain CMA - 03/17/2025 12:22 PM CST Returned call to pt and informed her of Dr. Calderón's recommendations. Pt stated that she is constantly dizzy. Informed her again that if she feels unwell and is concerned that she needs to go to the closest ER. Pt verbalized an understanding and stated that she will do so. T PUMPER * Saima Calderón MD - 03/17/2025 12:05 PM CST She on medications that can lower her BP. She needs to check her BP, please get a BP cuff If she feels unwell and is concerned, she should go the ER T PUMPER * Juana Malone RN - 03/17/2025 11:24 AM CST Patient has called back regarding her lightheadedness. She states she can't do anything because of it and feels like testing needs to be done sooner. She has concerns regarding her carotids. Still can't check a B/P. Please call her back at [phone] T PUMPER * Mary Kate Jesus - 03/17/2025 10:36 AM CST Pt called stating she is lightheaded with everything she does. She has no way to take her blood pressure at that time. Please advise. T PUMPER documented in this encounter Plan of Treatment Upcoming Encounters Date Type Department Care Team (Late st Contact Info) Description 03/21/2025 8:20 AM YEAST PUMPER Appointment [facility] [address] [place] [address] Cindy Payne MD [address] [place] [address] 03/26/2025 8:45 AM YEAST PUMPER Telephone [facility] [address] [place] [address] Saima Calderón MD [address] [place] [address] 04/08/2025 9:00 AM YEAST PUMP[address] [facility] [facility] Vascular Ultrasound - [facility] [address] [place] [address] Saima Calderón MD [address] [place] [phone] 04/08/2025 10:30 AM YEAST PUMPER Appoint[address] [facility] Nuclear Cardiology - [facility] [address] [place] [address] Saima Calderón MD [address] [place] [address] 04/08/2025 12:00 PM YEAST PUMPER Appointment [facility] [address] [place] [address] Saima Calderón MD [address] [place] [phone] 04/23/2025 10:00 AM YEAST PUMPER Appointment [facility] [address] [place] [address] Saima Calderón MD [address] [place] [phone] 05/29/2025 3:15 PM CDT Office Visit [facility] [phone] Saima Calderón MD [address] [place] [phone] documented as of this encounter Visit Diagnoses Not on filedocumented in this encounter Care Teams Clam Grower Relationship Specialty Start Date End Date Sumit Caballero MD [address] [place] [address] PCP - General INTERNAL MEDICINE 03/14/25 Thad Henry MD [address] [phone] VASCULAR SURGERY 02/28/25 Saima Calderón MD [address] [place] [address] [employer] Manager CARDIOVASCULAR DISEASE 03/14/25 documented as of this encounter
--- OUTSIDE RECORDS SUMMARY | 2025-03-17 19:15 | XMS_ITS | Clinical Summary ---
Author Organization [facility] Address [address] [place] [address] Care Team Providers Care Tub Wash Operator Name Role Phone Thad Henry MD Unavailable [phone] Sumit Caballero MD Primary Care Provider [phone] Saima Hager MD Unavailable [phone] Allergies Active Allergy Reactions Criticality Noted Date Comments Varenicline Hives 01/08/2025 Iodine Chest pressure 01/28/2025 Nsaids Hives 01/08/2025 Penicillins Hives Low 11/30/2018 Pt has tolerated cefuroxime (07/2024), cefepime (12/2024) Trimethobenzamide Itching Medium 11/30/2018 Medications albuterol sulfate HFA (VENTOLIN HFA) 108 (90 Base) MCG/ACT inhalerIndication s:sob Inhale 1-2 puffs into the lungs. Indications: sob 017 Active naloxone (NARCAN) 4 MG/0.1ML nasal sprayIndications: Narcotherapy 1 spray by Nasal route as needed for Opioid reversal. Indications: Psychotherapy Using Sedatives or Narcotics may repeat every 2 to 3 minutes in alternating nostrils until medical assistance becomes available 1 each 025 2025 Active Esomeprazole Magnesium 20 MG Tab ECIndications:geeta d Take 40 mg by mouth daily. Indications: gerd 10/25/2 025 Active acetaminophen (TYLENOL) 500 MG tabletIndications :fever/pain Take 1,000 mg by mouth every 6 (six) hours as needed for Fever or Pain. Indications: fever/pain Active omeprazole (PRILOSEC) 40 MG capsuleIndication s:Gastroesophagea l Reflux Disease Take 1 capsule (40 mg total) by mouth daily. Indications: Gastroesophageal Reflux Disease 30 capsule Active GNP ALLERGY RELIEF 25 MG capsule Take 1 capsule (25 mg total) by mouth every 6 (six) hours as needed. Active TRELEGY ELLIPTA 100-62.5-25 MCG/ACT AEROSOL POWDER, BREATH ACTIVATED Active gabapentin (NEURONTIN) 100 MG capsule Take 1 capsule (100 mg total) by mouth 4 (four) times daily. Active ondansetron (ZOFRAN-ODT) 4 MG disintegrating tablet Q6H as needed for nausea and vomiting Active predniSONE (DELTASONE) 20 MG tablet Take 1 tablet (20 mg total) by mouth daily. For 9 days Active hydroCHLOROthiazi de (MICROZIDE) 12.5 MG capsuleIndication s:Hypertension Take 1 capsule (12.5 mg total) by mouth daily. Indications: High Blood Pressure 30 capsule 2 Active lisinopril (PRINIVIL) 20 MG tabletIndications :Hypertension Take 1 tablet (20 mg total) by mouth daily. Indications: High Blood Pressure 90 tablet 3 025 2025 Active metoprolol tartrate (LOPRESSOR) 25 MG tabletIndications :Hypertension Take 1 tablet (25 mg total) by mouth 2 (two) times daily. Indications: High Blood Pressure 60 tablet 2 025 Active potassium chloride CR (KLOR-CON M) 20 MEQ tablet Take 1 tablet (20 mEq total) by mouth 2 (two) times daily. 60 tablet 11 025 Active simvastatin (ZOCOR) 20 MG tablet Take 1 tablet (20 mg total) by mouth nightly at bedtime. 30 tablet 11 Active simvastatin 20 MG tablet Take 1 tablet (20 mg total) by mouth. 013 2024 Disconti nued(Reo rder) lisinopril (PRINIVIL) 20 MG tabletIndications :Hypertension Take 1 tablet (20 mg total) by mouth daily. Indications: High Blood Pressure 90 tablet 3 025 2024 Disconti nued(Reo rder) metoprolol tartrate (LOPRESSOR) 25 MG tabletIndications :Hypertension Take 1 tablet (25 mg total) by mouth 2 (two) times daily. Indications: High Blood Pressure 60 tablet 2 025 2024 Disconti nued(Reo rder) hydroCHLOROthiazi de (MICROZIDE) 12.5 MG capsuleIndication s:Hypertension Take 1 capsule (12.5 mg total) by mouth daily. Indications: High Blood Pressure 30 capsule 2 025 2024 Disconti nued(Reo rder) potassium chloride CR (KLOR-CON M) 20 MEQ tablet TWICE A DAY 2024 Disconti nued(Reo rder) Active Problems Problem Noted Date Diagnosed Date [...] Encounters Date Type Department Care Team Description 03/17/2025 Telephone [facility] [address] [place] [address] Saima Hager MD Advice (Lightheaded. ) 03/04/2025 Orders Only [facility] [address] [place] [address] Genericprovide r, Default History 03/04/2025 Telephone [facility] [address] [place] [address] Saima Hager MD Medication Request 02/28/2025 Telephone [facility] [address] [place] [address] Saima aHger MD Refill Request 02/28/2025 Telephone [facility] [address] [place] [address] Saima Hager MD Orders (Heart Monitor ) 02/27/2025 12:30 PM MERCHANDISING INTERN Office Visit [facility] [address] [address] Saima Hager MD Follow Up; Chest Pain; Palpitations 02/27/2025 Telephone [facility] [address] [place] [address] Saima Hager MD Schedule Test 02/27/2025 Travel 02/26/2025 Orders Only [facility] [address] [place] [address] Saima Hager MD 02/25/2025 Telephone [facility] [address] [place] [address] Saima Hager MD Information 02/24/2025 Telephone [facility] [address] [place] [address] Saima Hager MD Appointment Request (Abnormal echo ) 02/11/2025 1:38 PM MERCHANDISING INTERN - 02/11/2025 2:37 PM MERCHANDISING INTERN Emergency [facility] [address] [place] [address] Bridger Alfredo DO Abdominal Pain Discharge Disposition: Left Against Medical Advice 02/11/2025 Travel 01/31/2025 11:00 AM MERCHANDISING INTERN Home Care Visit [facility] [address] [place] [address] Alexus Arreaga, RN SN OASIS DISCHARGE/ASSESSMENT 01/28/2025 9:10 AM MERCHANDISING INTERN - 01/28/2025 2:40 PM [facility] Emergency [facility] Emergency [address] [place] [address] Cherelle Ambrosio MD Medical Problem Discharge Disposition: Home or Self Care (Routine Discharge) 01/28/2025 Travel 01/27/2025 2:45 PM MERCHANDISING INTERN Home Care Visit [facility] [address] [place] [address] Alexus Arreaga, RN SN TELEPHONE CALL 01/26/2025 Home Care Visit [facility] [address] [place] [address] Quita Mejias RN CASE COMMUNICATION 01/24/2025 9:01 AM MERCHANDISING INTERN - 01/24/2025 12:36 PM [facility] Emergency [facility] Emergency [address] [place] [address] Bernardino Lyons, Abdominal Pain Discharge Disposition: Home or Self Care (Routine Discharge) 01/24/2025 Travel 01/23/2025 Home Care Visit [facility] [address] [place] [address] Alexus Arreaga, RN [facility] 01/21/2025 9:00 AM MERCHANDISING INTERN Home Care Visit [facility] [address] [place] [address] Sarika Villeda WOC RN SN TELEPHONE CALL 01/17/2025 12:00 PM CDT Home Care Visit [facility] [address] [place] [address] Alexus Arreaga, RN SN HOME VISIT 01/16/2025 9:45 AM CDT Home Care Visit [facility] [address] [place] [address] Grace Farmer, OT OT INITIAL EVALUATION 01/14/2025 4:31 PM CDT - 01/14/2025 10:46 PM CDT Emergency [facility] Emergency [address] [place] [address] Ez Reardon DO Macaskill, Rachel, MD Medical Problem Discharge Disposition: Home or Self Care (Routine Discharge) 01/14/2025 1:00 PM CDT Home Care Visit [facility] [address] [place] [address] Sarika Villeda, WOC RN HH/HSPC ORIENTATION VISIT 01/14/2025 1:00 PM CDT Home Care Visit [facility] [address] [place] [address] Niru Juarez LPN SN HOME VISIT 01/14/2025 11:00 AM CDT Home Care Visit [facility] [address] [place] [address] Kristine Barreto, PT PT INITIAL EVALUATION 01/14/2025 Travel 01/14/2025 Home Care Visit [facility] [address] [place] [address] Aida Foss, RN SN TELEPHONE CALL 01/12/2025 Home Care Visit [facility] [address] [place] [address] Sarika Abel, RN CASE COMMUNICATION 01/11/2025 11:00 AM CDT Home Care Visit [facility] [address] [place] [address] Aida Foss, RN SN OASIS START OF CARE 01/11/2025 Plan of Care Documentation [facility] [address] [place] [address] 01/08/2025 8:45 AM CDT Home Care Visit [facility] [address] [place] [address] Artie Moulton RN SN NON ADMIT SOC 01/08/2025 4:39 AM CDT - 01/08/2025 7:41 AM CDT [facility] [address] [place] [address] Carlos Ricardo MD Surgery Follow Up Discharge Disposition: Home or Self Care (Routine Discharge) 01/08/2025 Travel 01/07/2025 1:15 PM CDT Home Care Visit [facility] Home Care [facility] [address] [place] [address] Maribel Sagastume RN SN NON ADMIT SOC 12/28/2024 12:34 PM CDT Anesthesia Event [facility] [address] [place] [address] Kaushik Burleson MD 12/28/2024 11:25 AM CDT - 12/28/2024 3:16 PM CDT Surgery [facility] [address] [place] [address] Niru Diaz, DO RE-LOOK LAPAROTOMY with creation of end colostomy 12/27/2024 6:23 AM CDT Anesthesia Event [facility] [address] [place] [address] Shan Mittal MD Lajeunesse, Kaylie, CRNA 12/27/2024 5:55 AM CDT - 12/27/2024 7:47 AM CDT Surgery [facility] [address] [place] [address] Niru Diaz, LAPAROTOMY EXPLORATORY WITH MOBILIZATION OF SPLENIC FLEXURE AND DESCENDING COLON RESECTION, ABTHERA WOUND VAC PLACEMENT 12/27/2024 2:43 AM CDT - 01/05/2025 3:46 PM CDT Hospital Encounter [facility] Medical [address] [place] [address] Angel Gonzalez MD Imam, Syed M, DO Chidi Gallagher MD Gowda, Chetan N, MD Discharge Disposition: Home or Self Care (Routine Discharge) 12/27/2024 Travel from Last 3 Months Social History Tobacco Use Types Packs/Day Years Used Date Smoking Tobacco: Every Day Cigarettes Smokeless Tobacco: Current Tobacco Cessation:Ready to Q uit: Not Asked; Counseling Given: Not Answered Alcohol Use Standard Drinks/Week Comments Not Currently [...] materials from doctor or pharmacy Never 01/31/2025 [facility] Utilities Answer Date Recorded In the past 12 months has e [employer], oil, or water [employer] threatened to shut off services in your [...] any time in the past 12 m ont, were you homeless or living in a alf (including now)? No 12/27/2024 Comments No Sex and Gender Information Value Date Recorded Sex Assigned at Female 12/27/2024 3:39 AM CDT Legal Sex Female 1:27 AM CDT Gender Identity Female 12/27/2024 3:39 AM CDT Sexual Orientation Not on file Last Filed Vital Signs Vital Sign Reading Time Taken Comments Blood Pressure 130/67 02/27/2025 2:06 PM MERCHANDISING INTERN Pulse 86 02/27/2025 2:05 PM MERCHANDISING INTERN Temperature 36.7 C (98 F) 02/11/2025 1:45 PM MERCHANDISING INTERN Respiratory Rate 16 02/27/2025 2:05 PM MERCHANDISING INTERN Oxygen Saturation 95% 02/27/2025 2:05 PM MERCHANDISING INTERN Inhaled Oxygen Concentration - - Weight 70.3 kg (155 lb) 02/27/2025 2:05 PM MERCHANDISING INTERN Height 170.2 cm (5' 7) 02/27/2025 2:05 PM MERCHANDISING INTERN Body Mass Index 24.28 02/27/2025 2:05 PM MERCHANDISING INTERN Plan of Treatment Upcoming Encounters Date Type Department Care Team (Late st Contact Info) Description 03/21/2025 8:20 AM MERCHANDISING INTERN Appointment [facility] [address] [place] [address] Cnidy Payne MD [address] [place] [address] 03/26/2025 8:45 AM MERCHANDISING INTERN Telephone [facility] [address] [place] [address] Saima Hager MD [address] [place] [address] [phone] 04/08/2025 9:00 AM MERCHANDISING INTERN Appointment [facility] Vascular Ultrasound [facility] [address] [place] [address] Saima Hager MD [address] [place] [phone] 04/08/2025 10:30 AM MERCHANDISING INTERN Appointment [facility] Nuclear Cardiology [facility] [address] [place] [address] Saima Hager MD [address] [place] [phone] 04/08/2025 12:00 PM MERCHANDISING INTERN Appointment [facility] [address] [place] [address] Saima Hager MD [address] [place] [phone] 04/23/2025 10:00 AM MERCHANDISING INTERN Appointment [facility] [address] [place] [address] Saima Hager MD [address] [place] [phone] 05/29/2025 3:15 PM CDT Office Visit [facility] [address] [address] Saima Hager MD [address] [place] [phone] Health Maintenance Due Date Last Done Comments [...] Procedure Name Priority Date/Time Associated Diagnosis Comments ELECTROCARDIOGRAM, TRACING Routine 02/27/[address] ABD+PEL W CON STAT 01/28/2025 1:20 PM MERCHANDISING INTERN LACTIC ACID STAT 01/28/2025 9:50 AM MERCHANDISING INTERN COMPREHENSIVE METABOLIC PANEL STAT 01/28/2025 9:50 AM MERCHANDISING INTERN HC CBC AUTO W/AUTO DIFF STAT 01/28/2025 9:50 AM MERCHANDISING INTERN BASIC METABOLIC PANEL STAT 01/24/2025 11:46 AM MERCHANDISING INTERN CBC W/DIFF AUTOMATED STAT 01/24/2025 11:45 AM MERCHANDISING INTERN HC CULTURE URINE W/COLONY CT Nurse Collected [...] Case Notes OC #3ADDED ON 12/27/2024 @ [facility]33[facility] [employer]AILABLEWANTS 0730 POCT GLUCOSE - [...] PM CDT COLONOSCOPY Routine 03/20/2009 12:00 AM MERCHANDISING INTERN from Last 3 Months or Most Recently Relevant to Health Maintenance Results * NOT [facility] - ELECTROCARDIOGRAM, TRACING (02/27/2025) Saima Hager MD PROCEDURES-UNRESULTED Final Res ult * CT ABD+PEL W ORAL and IV CON (01/28/2025 1:20 PM MERCHANDISING INTERN) Only the most recent of2 resultswithin the time period is included. Anatomical Region Laterality Modality Abdomen Computed Tomogra phy 01/28/2025 1:44 PM MERCHANDISING INTERN Impressions 01/28/2025 1:52 PM MERCHANDISING INTERN IMPRESSION: 1. No CT evidence of active [...] 01/28/2025 1:44 PM Narrative 01/28/2025 1:52 PM MERCHANDISING INTERN [facility] [address] [place], [place] [address] PROCEDURE: CT ABD+PEL W CON HISTORY: Gastrointestinal [...] Procedure Note Paul Hunter MD - 01/28/[address] [address] PROCEDURE: CT ABD+PEL W CON HISTORY: Gastrointestinal [...] LACTIC ACID - SINGLE (01/28/2025 9:50 AM MERCHANDISING INTERN) LACTIC ACID VENOUS 1.2 0.4 - 2.0 MMOL/L 01/28/2025 10:26 AM MERCHANDISING INTERN [facility] BLOOD VENOUS BLOOD SPECIMEN / Unknown 01/28/2025 9:50 AM MERCHANDISING INTERN Cherelle Ambrosio MD LABORATORY Final Result [facility] [address] [place] [address], [id number] * (ABNORMAL) COMPREHENSIVE METABOLIC PANEL (01/28/2025 9:50 AM MERCHANDISING INTERN) SODIUM S/P/B 139 136 - 145 MMOL/L 01/28/2025 10:22 AM [facility] POTASSIUM S/P/B 4.3 3.5 - 5.1 MMOL/L 01/28/2025 10:22 AM [facility] CHLORIDE S/P/B 107 97 - 115 MMOL/L 01/28/2025 10:22 AM [facility] CO2 25.8 21.0 - 32.0 MMOL/L 01/28/2025 10:22 AM [facility] GLUCOSE 114(H) 74 - 106 MG/DL 01/28/2025 10:22 AM [facility] BUN 27(H) 7 - 18 MG/DL 01/28/2025 10:22 AM [facility] CREATININE S/P/B 0.72 0.55 - 1.02 MG/DL 01/28/2025 10:22 AM [facility] CALCIUM S/P/B 8.8 8.5 - 10.1 MG/DL 01/28/2025 10:22 AM [facility] BILIRUBIN TOTAL S/P/B 0.3 0.2 - 1.0 MG/DL 01/28/2025 10:22 AM [facility] ALKALINE PHOSPHATASE S/P/B 117 50 - 130 U/L 01/28/2025 10:22 AM [facility] AST 12(L) 15 - 37 U/L 01/28/2025 10:22 AM [facility] ALT 16 13 - 56 U/L 01/28/2025 10:22 AM [facility] TOTAL PROTEIN S/P/B 6.7 6.4 - 8.2 G/DL 01/28/2025 10:22 AM [facility] ALBUMIN S/P/B 2.9(L) 3.4 - 5.0 G/DL 01/28/2025 10:22 AM [facility] ANION GAP 6.2 2.0 - 10.0 MMOL/L 01/28/2025 10:22 AM [facility] OSMOLALITY (CALC) 294 MOSM/KG 025 10:22 AM [facility] Comment:REFERENCE RANGE NOT ESTABLISHED GFR ESTIMATE >90 >90 ML/MIN/1. 73 M2 01/28/2025 10:22 AM [facility] GFR NOTES GFR REFERENCE S: 01/28/2025 10:22 AM [facility] Comment: THE ESTIMATED GFR IS CALCULATED [...] BLOOD SPECIMEN / Unknown 01/28/2025 9:50 AM MERCHANDISING INTERN Cherelle Ambrosio MD LABORATORY Final Result [facility] [address] [place] [address], [id number] * (ABNORMAL) CBC W/DIFF AUTOMATED (01/28/2025 9:50 AM MERCHANDISING INTERN) WBC 8.19 4.00 - 10.80 x10'3/uL 01/28/2025 9:59 AM [facility] RBC 4.24 4.10 - 5.40 x10'6/uL 01/28/2025 9:59 AM [facility] HGB 9.3(L) 12.0 - 16.0 G/DL 01/28/2025 9:59 AM [facility] HCT 32.2(L) 36.0 - 47.0 % 01/28/2025 9:59 AM [facility] MCV 75.9(L) 78.0 - 100.0 FL 01/28/2025 9:59 AM [facility] MCH 21.9(L) 27.0 - 31.0 PG 01/28/2025 9:59 AM [facility] MCHC 28.9(L) 33.0 - 36.0 G/DL 01/28/2025 9:59 AM [facility] RDW 26.1(H) 11.5 - 14.5 % 01/28/2025 9:59 AM [facility] PLT 345 150 - 350 x10'3/uL 01/28/2025 9:59 AM [facility] MPV 8.4 7.4 - 10.4 FL 01/28/2025 9:59 AM [facility] DIFFERENTIAL TYPE AUTOMATED DIFFERENTIAL 01/28/2025 10:28 AM [facility] SEG NEUTROPHILS 59.7 % 10:28 AM [facility] LYMPHOCYTES 27.0 % 01/28/2025 10:28 AM [facility] MONOCYTES 7.1 % 01/28/2025 10:28 AM [facility] EOSINOPHILS 5.6 % 01/28/2025 10:28 AM [facility] BASOPHILS 0.4 % 01/28/2025 10:28 AM [facility] IMMATURE GRANS % 0.2 % 01/29/20 10:28 AM [facility] ABS. NEUTROPHILS 4.89 1.60 - 8.30 x10'3/uL 01/28/2025 10:28 AM [facility] ABS. LYMPHOCYTES 2.21 0.80 - 4.70 x10'3/uL 01/28/2025 10:28 AM [facility] ABS. MONOCYTES 0.58 0.00 - 1.50 x10'3/uL 01/28/2025 10:28 AM [facility] ABS. EOSINOPHILS 0.46(H) 0.00 - 0.40 x10'3/uL 01/28/2025 10:28 AM [facility] ABS. BASOPHILS 0.03 0.00 - 0.20 x10'3/uL 01/28/2025 10:28 AM [facility] ABS. IMMATURE GRANULOCYTES 0.02 0.00 - 0.03 x10'3/uL 01/28/2025 10:28 AM [facility] ABS. NUCLEATED RBC'S 0.00 0.00 - 0.01 x10'3/uL 01/28/2025 10:28 AM [facility] NRBC % 0.0 % 01/28/2025 10:28 AM [facility] RBC MORPHOLOGY SLIDE REVIEWED 2024 10:28 AM [facility] ANISO MARKED 01/28/2025 10:28 AM [facility] POIKLO MODERATE 01/28/2025 10:28 AM [facility] HYPOCHROMASIA MODERATE 01/28/2025 10:28 AM [facility] MICRO SLIGHT 01/28/2025 10:28 AM [facility] POLY SLIGHT 01/28/2025 10:28 AM [facility] OVALOCYTES PRESENT 01/28/2025 10:28 AM [facility] TARGET CELLS PRESENT 01/28/2025 10:28 AM [facility] ACANTHOCYTES PRESENT 01/28/2025 10:28 AM [facility] PLT EST. ADEQUATE 01/28/2025 10:28 AM [facility] BLOOD VENOUS BLOOD SPECIMEN / Unknown 01/28/2025 9:50 AM MERCHANDISING INTERN Cherelle Ambrosio MD LABORATORY Final Result [facility] [address] [place] [address], [id number] * (ABNORMAL) BASIC METABOLIC PANEL (01/24/2025 11:46 AM MERCHANDISING INTERN) Only the most recent of9 resultswithin the time period is included. SODIUM S/P/B 139 136 - 145 MMOL/L 01/24/2025 12:40 PM [facility] POTASSIUM S/P/B 4.0 3.5 - 5.1 MMOL/L 01/24/2025 12:40 PM [facility] CHLORIDE S/P/B 111 97 - 115 MMOL/L 01/24/2025 12:40 PM [facility] CO2 25.3 21.0 - 32.0 MMOL/L 01/24/2025 12:40 PM [facility] GLUCOSE 158(H) 74 - 106 MG/DL 01/24/2025 12:40 PM [facility] BUN 19(H) 7 - 18 MG/DL 01/24/2025 12:40 PM [facility] CREATININE S/P/B 0.86 0.55 - 1.02 MG/DL 01/24/2025 12:40 PM [facility] CALCIUM S/P/B 9.1 8.5 - 10.1 MG/DL 01/24/2025 12:40 PM [facility] ANION GAP 2.7 2.0 - 10.0 MMOL/L 01/24/2025 12:[address] [facility] OSMOLALITY (CALC) 294 MOSM/KG 025 12:40 PM [facility] Comment:REFERENCE RANGE NOT ESTABLISHED GFR ESTIMATE 75(L) >90 ML/MIN/1. 73 M2 01/24/2025 12:[address] [facility] GFR NOTES GFR REFERENCE S: 01/24/2025 12:40 PM [facility] Comment: THE ESTIMATED GFR IS CALCULATED [...] <15 ml/min/1.73 m2 01/24/2025 11:4 6 AM MERCHANDISING INTERN us Niru Diaz DO LABORATORY Final Resul t [facility] [address] [place] [address], [id number] * (ABNORMAL) CBC W/DIFF AUTOMATED (01/24/2025 11:45 AM MERCHANDISING INTERN) Only the most recent of11 resultswithin the time period is included. WBC 4.77 4.00 - 10.80 x10'3/uL 01/24/2025 12:[address] [facility] RBC 4.24 4.10 - 5.40 x10'6/uL 01/24/2025 12:[address] [facility] HGB 9.3(L) 12.0 - 16.0 G/DL 01/24/2025 12:10 PM [facility] HCT 31.9(L) 36.0 - 47.0 % 01/24/2025 12:10 PM [facility] MCV 75.2(L) 78.0 - 100.0 FL 01/24/2025 12:10 PM [facility] MCH 21.9(L) 27.0 - 31.0 PG 01/24/2025 12:10 PM [facility] MCHC 29.2(L) 33.0 - 36.0 G/DL 01/24/2025 12:10 PM [facility] RDW 27.7(H) 11.5 - 14.5 % 01/24/2025 12:10 PM [facility] PLT 410(H) 150 - 350 x10'3/uL 01/24/2025 12:10 PM [facility] MPV 8.4 7.4 - 10.4 FL 01/24/2025 12:10 PM [facility] DIFFERENTIAL TYPE AUTOMATED DIFFERENTIAL 01/24/2025 12:28 PM [facility] SEG NEUTROPHILS 81.4 % 12:28 PM [facility] LYMPHOCYTES 15.3 % 01/24/2025 12:28 PM [facility] MONOCYTES 2.9 % 01/24/2025 12:28 PM [facility] EOSINOPHILS 0.0 % 01/24/2025 12:28 PM [facility] BASOPHILS 0.2 % 01/24/2025 12:28 PM [facility] IMMATURE GRANS % 0.2 % 01/25/20 12:28 PM [facility] ABS. NEUTROPHILS 3.88 1.60 - 8.30 x10'3/uL 01/24/2025 12:28 PM [facility] ABS. LYMPHOCYTES 0.73(L) 0.80 - 4.70 x10'3/uL 01/24/2025 12:[address] [facility] ABS. MONOCYTES 0.14 0.00 - 1.50 x10'3/uL 01/24/2025 12:28 PM [facility] ABS. EOSINOPHILS 0.00 0.00 - 0.40 x10'3/uL 01/24/2025 12:[address] [facility] ABS. BASOPHILS 0.01 0.00 - 0.20 x10'3/uL 01/24/2025 12:28 PM [facility] ABS. IMMATURE GRANULOCYTES 0.01 0.00 - 0.03 x10'3/uL 01/24/2025 12:28 PM [facility]. NUCLEATED RBC'S 0.00 0.00 - 0.01 x10'3/uL 01/24/2025 12:[address] [facility] NRBC % 0.0 % 01/24/2025 12:28 PM [facility] RBC MORPHOLOGY SLIDE REVIEWED 2024 12:[address] [facility] ANISO MODERATE 01/24/2025 12:28 PM [facility] POIKLO SLIGHT 01/24/2025 12:[address] [facility] HYPOCHROMASIA MODERATE 01/24/2025 12:[address] [facility] MICRO MODERATE 01/24/2025 12:[address] [facility] POLY SLIGHT 01/24/2025 12:[address] [facility] OVALOCYTES PRESENT 01/24/2025 12:[address] [facility] TARGET CELLS PRESENT 01/24/2025 12:[address] [facility] ACANTHOCYTES PRESENT 01/24/2025 12:[address] [facility] PLT EST. INCREASED 01/24/2025 12:[address] [facility] 01/24/2025 11:4 5 AM [facility] Niru Diaz DO LABORATORY Final Resul t [facility] [address] [place] [address], [id number] * (ABNORMAL) URINALYSIS (01/14/2025 8:27 PM CDT) Only the most recent of2 resultswithin the time period is included. COLOR (U) LIGHT YELLOW 01/14/2025 9:[address] [facility] TRANSPARENCY CLEAR 01/14/2025 9:[address] [facility] SPECIFIC GRAVITY (U) 1.032 1.002 - 1.035 01/14/2025 9:[address] [facility] U PH 6.5 5 - 8 01/14/2025 9:[address] [facility] PROTEIN RANDOM (U) NEGATIVE NEGATIVE 01/14/2025 9:[address] [facility] GLUCOSE (U) NEGATIVE NEGATIVE MG/DL 01/14/2025 9:[address] [facility] KETONES MG/DL (U) NEGATIVE NEGATIVE 01/14/2025 9:[address] [facility] BILIRUBIN (U) NEGATIVE NEGATIVE 01/14/2025 9:[address] [facility] BLOOD (U) NEGATIVE NEGATIVE 01/14/2025 9:[address] [facility] NITRITES NEGATIVE NEGATIVE 01/14/2025 9:[address] [facility] UROBILINOGEN NORMAL 0 - 1 EU/DL 01/14/2025 9:[address] [facility] LEUKOCYTES (U) TRACE(A) NEGATIVE 01/14/2025 9:[address] [facility] RBC/HPF 1 0 - 3 /HPF 01/14/2025 9:[address] [facility] WBC/HPF 4 0 - 6 /HPF 01/14/2025 9:[address] [facility] BACTERIA (U) NONE /HPF 01/14/2025 9:[address] [facility] SQUAMOUS EPITHELIALS 2 01/14/2025 9:[address] [facility] URINE SPECIMEN OBTAINED BY CLEAN CATCH PROCEDURE / Unknown 01/14/2025 8:27 PM CDT Philip Alberto NP URINE ORDERABLES Final Resu lt Performing Organization Address [facility] de Phone Number [facility] [address] [place] [address], [phone] * CULTURE URINE (01/14/2025 8:27 PM CDT) Pathologist [facility] SPEC DESCRIPTION URINE CLEAN CATCH 01/14/2025 8:[address] [facility] SPECIAL REQUESTS NO SPECIAL REQUEST 01/14/2025 8:[address] [facility] CULTURE RESULT NO GROWTH (< OR = 1,000 CFU/ML) 01/16/2025 11:[address] [facility] URINE SPECIMEN OBTAINED BY CLEAN CATCH PROCEDURE / Unknown 01/14/2025 8:27 PM CDT 01/14/2025 8:59 PM CDT Philip Alberto [employer] MICROBIOLOGY - GENERAL ORDE RABLES Final Result Performing Organization Address [facility] de Phone Number [facility] [address] [place] [address], [phone] * TROPONIN, QUANT (01/14/2025 8:00 PM CDT) Only the most recent of5 resultswithin the time period is included. Pathologist [facility] TROPONIN I HIGH SENSITIVITY 49 0 - 53 ng/L 01/14/2025 9:[address] [facility] 01/14/2025 8:00 PM CDT Isabel Lan MD LABORATORY Final Result [facility] [address] [place] [address], [id number] * CTA ABD+PEL (01/14/2025 7:25 PM CDT) [...] 7:40 PM Narrative 01/14/2025 7:56 PM CDT [facility] [address] [place], [place] [address] EXAMINATION: CTA abdomen and pelvis with contrast [...] Procedure Note Bebeto Wolff MD - 01/14/[address] [address] EXAMINATION: CTA abdomen and pelvis with contrast [...] time period is included. ECG QT 364 [facility] ECG QTC 434 [facility] 01/14/2025 6:31 PM CDT Narrative [facility] - 01/15/2025 6:14 AM CDT [facility] Test Date: 2025-01-14 Pat Name: MAMI TAYLOR Department: 70 Room: EXAM CC Gender: Female Mounter Saxophones: : 1960 Requested By: EZ REARDON Order Number: [id number] Reading MD: Radha Nixon Measurements Intervals [place] Rate: 85 P: 38 IL: 167 QRS: 15 QRSD: 94 T: 33 QT: 364 QTc: 434 Interpretive Statements SINUS RHYTHM POSSIBLE RIGHT VENTRICULAR CONDUCTION DELAY ST DEVIATION AND MODERATE T-WAVE ABNORMALITY, CONSIDER LATERAL ISCHEMIA Procedure Note Radha Nixon MD - 01/15/2025 [facility] Test Date: 2025-01-14 Pat Name: MAMI TAYLOR Department: 70 Room: EXAM CC Gender: Female Mounter Saxophones: : 1960 Requested By: EZ REARDON Order Number: [id number] Reading MD: Radha Nixon Measurements Intervals [place] Rate: 85 P: 38 IL: 167 QRS: 15 QRSD: 94 T: 33 QT: 364 QTc: 434 Interpretive Statements SINUS RHYTHM POSSIBLE RIGHT VENTRICULAR CONDUCTION DELAY ST DEVIATION AND MODERATE T-WAVE ABNORMALITY, CONSIDER LATERAL ISCHEMIA us Ez Reardon DO ECG ORDERABLES Final Resul t [facility] * LACTIC ACID W REFLEX (SEPSIS) (01/14/2025 5:04 PM CDT) Only the most recent of3 resultswithin the time period is included. LACTIC ACID VENOUS 1.5 0.4 - 2.0 MMOL/L 01/14/2025 5:[address] [facility] 01/14/2025 5:04 PM CDT us Philip Alberto [employer] LABORATORY Final Resul t [facility] [address] [place] [address], [phone] * (ABNORMAL) COMPREHENSIVE METABOLIC PANEL (01/14/2025 5:04 PM CDT) Only the most recent of2 resultswithin the time period is included. SODIUM S/P/B 138 136 - 145 MMOL/L 01/14/2025 5:[address] [facility] POTASSIUM S/P/B 3.8 3.5 - 5.1 MMOL/L 01/14/2025 5:[address] [facility] CHLORIDE S/P/B 107 97 - 115 MMOL/L 01/14/2025 5:[address] [facility] CO2 26.3 21.0 - 32.0 MMOL/L 01/14/2025 5:[address] [facility] GLUCOSE 108(H) 74 - 106 MG/DL 01/14/2025 5:[address] [facility] BUN 14 7 - 18 MG/DL 01/14/2025 5:[address] [facility] CREATININE S/P/B 0.78 0.55 - 1.02 MG/DL 01/14/2025 5:[address] [facility] CALCIUM S/P/B 8.5 8.5 - 10.1 MG/DL 01/14/2025 5:[address] [facility] BILIRUBIN TOTAL S/P/B 0.2 0.2 - 1.0 MG/DL 01/14/2025 5:[address] [facility] ALKALINE PHOSPHATASE S/P/B 352(H) 50 - 130 U/L 01/14/2025 5:[address] [facility] AST 26 15 - 37 U/L 01/14/2025 5:[address] [facility] ALT 24 13 - 56 U/L 01/14/2025 5:[address] [facility] TOTAL PROTEIN S/P/B 6.8 6.4 - 8.2 G/DL 01/14/2025 5:[address] [facility] ALBUMIN S/P/B 2.8(L) 3.4 - 5.0 G/DL 01/14/2025 5:[address] [facility] ANION GAP 4.7 2.0 - 10.0 MMOL/L 01/14/2025 5:[address] [facility] OSMOLALITY (CALC) 287 MOSM/KG 025 5:[address] [facility] Comment:REFERENCE RANGE NOT ESTABLISHED GFR ESTIMATE 84(L) >90 ML/MIN/1. 73 M2 01/14/2025 5:[address] [facility] GFR NOTES GFR REFERENCE S: 01/14/2025 5:[address] [facility] Comment: THE ESTIMATED GFR [...] m2 01/14/2025 5:04 PM CDT us Philip Alberto NP LABORATORY Final Resul t [facility] [address] [place] [address], [phone] * (ABNORMAL) MAGNESIUM (01/14/2025 5:04 PM CDT) Only the most recent of9 resultswithin the time period is included. MAGNESIUM 1.5(L) 1.6 - 2.6 MG/DL 01/14/2025 5:[address] [facility] 01/14/2025 5:04 PM CDT Philip Alberto [employer] LABORATORY Final Resul t Performing Organization Address City/[facility]/ZIP Co de Phone Number [facility] [address] [place] [address], [place] [phone] * LIPASE (01/14/2025 5:04 PM CDT) LIPASE 54 13 - 75 UNITS/L 01/14/2025 5:[address] [facility] 01/14/2025 5:04 PM CDT Philip Alberto [employer] LABORATORY Final Resul t Performing Organization Address [facility] Co de Phone Number [facility] [address] [place] [address], [place] [phone] * BLOOD CULTURE #1 (01/14/2025 5:03 PM CDT) Only the most recent of2 resultswithin the time period is included. SPEC DESCRIPTION BLOOD 01/14/2025 3:[address] [facility] SPECIAL REQUESTS NO SPECIAL REQUEST 01/14/2025 3:[address] [facility] CULTURE RESULT NO GROWTH 5 DAYS 01/19/2025 4:[address] [facility] BLOOD SPECIMEN OBTAINED FOR BLOOD CULTURE / Unknown 01/14/2025 5:03 PM CDT 01/14/2025 5:16 PM CDT Philip Alberto NP MICROBIOLOGY - GENERAL ORDE RABLES Final Result Performing Organization Address [facility] de Phone Number [facility] [address] [place] [address], [phone] * PHOSPHORUS, INORGANIC PHOSPHATE (01/04/2025 4:40 AM CDT) Only the most recent of8 resultswithin the time period is included. PHOSPHORUS 4.3 2.5 - 4.9 MG/DL 01/04/2025 5:[address] [facility] 01/04/2025 4:40 AM CDT us Montez Molina MD LABORATORY Final Result Performing Organization Address [facility] de Phone Number [facility] [address] [place] [address], [phone] * (ABNORMAL) POCT glucose (01/03/2025 11:22 AM CDT) Only the most recent of26 resultswithin the time period is included. Pathologist [facility] GLUCOSE POC 194(H) 70 - 109 01/03/2025 11:[address] [facility] 01/03/2025 11:2 2 AM CDT us Montez Molina MD POCT ORDERABLES - DEVICE Final Result Performing Organization Address [facility] de Phone Number [facility] [address] [place] [address], [phone] * C AURIS,PCR,AXILLA/GROIN,NARES (01/01/2025 12:50 PM CDT) KAMLA AURIS (CLARITA/GROIN) Not Detected Not Detected 01/04/2025 2:12 PM CDT [employer] CLARENCE REYEZ Comment: A Not Detected result indicates [...] analytical performance characteristics have been determined by [employer] [place], [place]. It has not been cleared or approved by the U.S. Food and Drug Administration. This assay has been validated pursuant to the CLIA regulations and is used for clinical purposes. Test Performed by [facility], [employer] [facility], [address] [place] [address] Mike Mitchell M.D., Ph.D., Director of Laboratories , [place] [id number] 01/01/2025 12:5 0 PM CDT Montez Molina MD LABORATORY Final Result Performing Organization Address City/[facility]/ZIP Co de Phone Number [employer] [address] , [place] [phone] * (ABNORMAL) HEMOGLOBIN AND HEMATOCRIT (12/30/2024 1:49 PM CDT) [facility] HGB 7.9(L) 12.0 - 16.0 G/DL 12/30/2024 2:[address] [facility] HCT 28.0(L) 36.0 - 47.0 % 12/30/2024 2:[address] [facility] 12/30/2024 1:49 PM CDT us Montez Molina MD LABORATORY Final Result [facility] [address] [place] [address], [place] [phone] * TRANSFUSE RED BLOOD CELLS (12/30/2024 11:22 AM CDT) Only the most recent of3 resultswithin the time period is included. Niru Diaz DO NURSING TREATMENT ORDERABLE S - BLOOD ADMIN Final Result * (ABNORMAL) PRO-BRAIN NATRIURETIC PEPTIDE (12/30/2024 2:31 AM CDT) PRO-B TYPE NATRIURETIC PEPTIDE 3,721(H) <125 PG/ML 12/30/2024 5:[address] [facility] Comment: AGE INDEPENDENT: <300 [...] Hager MD LABORATORY Final Result [facility] [address] [place] [address], [phone] * USE Energy (12/29/2024 12:25 PM CDT) Anatomical Region Laterality Modality Cardiac Echocardiogram 12/29/2024 9:54 AM CDT Narrative 12/29/2024 5:31 PM CDT Echocardiography Report Pat.Name: MAMI TAYLOR Pat.ID: [id number] .Date: 12/29/2024 Refer.MD: SAIMA HAGER Exam Time: 9:54:00 AM Study Type:ECHO WITH DOPPLER LIMITED Height: 67 in Weight: 170 lb BSA: 1.89 m2 Age: 11 1960,64Y Sex: F BP: 143/66 HR: 83 bpm Sonogrphr: Alicia Norwood RDCS Pat. Stat.:Inpatient Room: [facility] CPT - 4: 01076 [id number] Reason for Study:assess intracavitary gradient (LVOT), bubble [...] 12/29/2024 Echocardiography Report Pat.Name: MAMI TAYLOR Pat.ID: [id number] .Date: 12/29/2024 Refer.MD: SAIMA HAGER Exam Time: 9:54:00 AM Study Type:ECHO WITH DOPPLER LIMITED Height: 67 in Weight: 170 lb BSA: 1.89 m2 Age: 11 1960,64Y Sex: F BP: 143/66 HR: 83 bpm Sonogrphr: Alicia Norwood [facility] Pat. Stat.:Inpatient Room: [facility] CPT - 4: 27696 [id number] Reason for Study:assess intracavitary gradient (LVOT), bubble [...] resultswithin the time period is included. PATHOLOGY [facility] Department of Laboratory Medicine [address] [place] [phone] , [id number] Pathology Report Surgical Pathology Report Name: MAMI TAYLOR Specimen #: [id number] Age: 11 1960 (Age: 64) Location: [facility] Sex: F Procedure Date: 12/28/2024 Hospital #: [id number] Date Received: 12/30/2024 Date Reported: 12/31/2024 Provider: [...] Gross examination (when applicable) was performed at [facility], [address] [facility], [place] [address]. This case was interpreted and signed out at [facility], [address] [place] [address], [facility] [address]. Electronically Signed Out GARCÍA GROVES MD [facility] TISSUE (Other (Type In Comments)) 12/28/2024 1:30 PM CDT us Niru Diaz DO PATHOLOGY/CYTOLOGY ORDERABL ES Final Result [facility] [address] [place] [address], [phone] * USE ECHOCARDIOGRAM W CON (12/27/2024 2:05 PM CDT) Anatomical Region Laterality Modality NA Echocardiogram 12/27/2024 1:35 PM CDT Narrative 12/27/2024 2:54 PM CDT Echocardiography Report Pat.Name: MAMI TAYLOR Pat.ID: [id number] .Date: 12/27/2024 Refer.: [id number] NONE PROVIDER EWDPROV EWDPROV Exam Time: 1:35:00 PM Study Type:ECHO WITH CARDIAC DOPPLER COMP Height: 67 in Weight: 170 lb BSA: 1.89 m2 Age: 11 1960,64Y Sex: F BP: 118/53 HR: 81 bpm Sonogrphr: HAKEEM Briggs Pat. Stat.:[facility] CPT - 4: 01164 Reason for Study:Evaluate for thrombus/vegetations Procedures: 2D, [...] Mass 2D Value 159 g LV Mass [id number] Value 84.1 g/m2 Med MA LV Peak [...] 2.8 cm Right Ventricle 2.3 cm Major Laurel 8.3 cm MMODE TA Tricuspid Annul 2.09 cm <Electronic Signature> 12/27/2024 02:54 PM Gerri Mcneal M.D. Procedure Note Gerri Mcneal, DO - 12/27/2024 Echocardiography Report Pat.Name: EBERSOHL, MAMI Pat.ID: [id number] .Date: 12/27/2024 Refer: [id number] NONE PROVIDER EWDPROV EWDPROV Exam Time: 1:35:00 PM Study Type:ECHO WITH CARDIAC DOPPLER COMP Height: 67 in Weight: 170 lb BSA: 1.89 m2 Age: 11 1960,64Y Sex: F BP: 118/53 HR: 81 bpm Sonogrphr: HAKEEM Briggs Pat. Stat.:Inpatient Room: [facility] CPT - 4: 65018 Reason for Study:Evaluate for thrombus/vegetations Procedures: 2D, [...] Mass 2D Value 159 g LV Mass [id number] Value 84.1 g/m2 Med MA LV Peak [...] 2.8 cm Right Ventricle 2.3 cm Major Laurel 8.3 cm MMODE TA Tricuspid Annul 2.09 cm <Electronic Signature> 12/27/2024 02:54 PM Gerri Mcneal M.D. us Niru Diaz ECHO Final Resul t * (ABNORMAL) POCT ACUTE ARTERIAL PANEL (12/27/2024 10:45 AM CDT) Only the most recent of2 resultswithin the time period is included. SODIUM WHOLE BLOOD 139 138 - 146 mmol/L 12/27/2024 10:[address] [facility] POTASSIUM WHOLE BLOOD 4.7 3.5 - 4.9 mmol/L 12/27/2024 10:[address] [facility] CA IONIZED WH BLOOD 1.12 1.12 - 1.32 mmol/L 12/27/2024 10:[address] [facility] POC PH ARTERIAL 7.285(L) 7.35 - 7.45 12/27/2024 10:[address] [facility] POC PCO2 ARTERIAL 39.8 35.0 - 45.0 MMHG 12/27/2024 10:[address] [facility] POC PO2 ARTERIAL 115(H) 80 - 105 MMHG 12/27/2024 10:[address] [facility] POC HCO3 ARTERIAL 18.9(L) 22 - 26 MMOL/L 12/27/2024 10:[address] [facility] POC TCO2 ARTERIAL 20(L) 23 - 27 MMOL/L 12/27/2024 10:[address] [facility] POC BASE DEFICIT ARTERIAL 8(H) 0 - 2 MMOL/L 12/27/2024 10:[address] [facility] POC HEMATOCRIT 29(L) 38 - 51 % 12/27/2024 10:[address] [facility] TIME TEST WAS PERFORMED: 1045 12/27/2024 10:[address] [facility] 12/27/2024 10:4 5 AM CDT us Chidi Gallagher MD POCT ORDERABLES - DEVICE Final Result [facility] [address] [place] [address], [id number] * XR CHEST PORTABLE (12/27/2024 10:36 AM CDT) Anatomical Region Laterality Modality Chest Radiographic Mary ging 12/27/2024 1:44 PM CDT Impressions 12/27/2024 1:46 PM CDT IMPRESSION: The gastric tube is in the stomach. Referred By: PROVIDER NONE Interpreted By: Ayush Real MD, 12/27/2024 1:44 PM Narrative 12/27/2024 1:46 PM CDT [facility] [address] [place], [place] [address] EXAM: XR CHEST PORTABLE DATE: 12/27/2024 1033 hours No comparison INDICATION: Gastric tube placement. TECHNIQUE: One view FINDINGS: Endotracheal tube is about 6 cm above the eunice. Gastric tube is in the stomach. Enlarged heart and central pulmonary vessels. Mild ill-defined lung densities. Procedure Note Ayush Real MD - 12/27/2024 [facility] [address] [place], [place] [address] EXAM: XR CHEST PORTABLE DATE: 12/27/2024 1033 [...] MMOL/L 12/27/2024 10:[address] [facility] 12/27/2024 10:0 8 AM CDT Chidi Gallagher MD LABORATORY Final Result [facility] [address] [place] [address], [place] [phone] * Art Line (12/27/2024 6:56 AM CDT) [...] (comment) (CHG imbedding tegaderm) Nathan Chicas MD [place] ANESTHESIA Final Result * TYPE & SCREEN (12/27/2024 5:54 AM CDT) UNITS ORDERED 4 12/30/2024 6:[address] [facility] ABO/RH O POSITIVE 12/27/2024 6:[address] [facility] ANTIBODY SCREEN NEGATIVE 6:[address] [facility] SAMPLE EXPIRATION 12/30/2024,2359 12/27/2024 5:[address] [facility] BLOOD UNIT NUMBER [id number] 12/27/2024 7:[address] [facility] PRODUCT: PC LEUKOPOOR 12/27/2024 7:[address] [facility] UNIT DIVISION 00 12/27/2024 7:[address] [facility] BLOOD UNIT STATUS TRANSFUSED,FINAL 12/28/2024 1:[address] [facility] ISSUE DATE/TIME [id number] 025 1:[address] [facility] PRODUCT CODE [id number] 12/28/2024 1:[address] [facility] ABO/RH Unit O POS 12/28/2024 1:[address] [facility] ABO/RH UNIT ISBT CODE 5100 12/28/2024 1:[address] [facility] BLOOD UNIT EXPIRATION DATE [id number] 12/28/2024 1:[address] [facility] TRANSFUSION STATUS OK TO TRANSFUSE 12/27/2024 7:[address] [facility] CROSSMATCH COMPATIBLE-EXM 12/27/2024 7:[address] [facility] BLOOD UNIT NUMBER [id number] 12/27/2024 7:[address] [facility] PRODUCT: PC LEUKOPOOR 12/27/2024 7:[address] [facility] UNIT DIVISION 00 12/27/2024 7:[address] [facility] BLOOD UNIT STATUS TRANSFUSED,FINAL 12/28/2024 1:[address] [facility] ISSUE DATE/TIME [id number] 025 1:[address] [facility] PRODUCT CODE [id number] 12/28/2024 1:[address] [facility] ABO/RH Unit O POS 12/28/2024 1:[address] [facility] ABO/RH UNIT ISBT CODE 5100 12/28/2024 1:[address] [facility] BLOOD UNIT EXPIRATION DATE [id number] 12/28/2024 1:[address] [facility] TRANSFUSION STATUS OK TO TRANSFUSE 12/27/2024 7:[address] [facility] CROSSMATCH COMPATIBLE-EXM 12/27/2024 7:[address] [facility] BLOOD UNIT NUMBER [id number] 12/30/2024 8:[address] [facility] PRODUCT: PC LEUKOPOOR 12/30/2024 8:[address] [facility] UNIT DIVISION 00 12/30/2024 8:[address] [facility] BLOOD UNIT STATUS TRANSFUSED,FINAL 12/31/2024 1:[address] [facility] ISSUE DATE/TIME [id number] 025 1:[address] [facility] PRODUCT CODE [id number] 12/31/2024 1:[address] [facility] ABO/RH Unit O POS 12/31/2024 1:[address] [facility] ABO/RH UNIT ISBT CODE 5100 12/31/2024 1:[address] [facility] BLOOD UNIT EXPIRATION DATE [id number] 12/31/2024 1:[address] [facility] TRANSFUSION STATUS OK TO TRANSFUSE 12/30/2024 8:[address] [facility] CROSSMATCH COMPATIBLE-EXM 12/30/2024 8:[address] [facility] 12/27/2024 5:54 AM CDT Angel Gonzalez MD BLOOD BANK TEST ORDERABLES Final Result Performing Organization Address [facility] de Phone Number [facility] [address] [place] [address], [phone] * (ABNORMAL) PROTIME/INR, VENOUS (PROTHROMBIN TIME) (12/27/2024 5:54 AM CDT) PROTIME 15.0(H) 9.4 - 12.5 SEC 12/27/2024 6:[address] [facility] INR 1.3(H) 0.8 - 1.1 12/27/2024 6:[address] [facility] 12/27/2024 5:54 AM CDT Niru Diaz DO LABORATORY Final Resul t Performing Organization Address [facility] de Phone Number [facility] [address] [place] [address], [phone] * (ABNORMAL) URINE DRUG SCREEN (TOXICOLOGY) (12/27/2024 5:42 AM CDT) PHENCYCLIDINE PCP (U) NEGATIVE NEGATIVE 12/27/2024 7:[address] [facility] BENZODIAZEPINES SCREEN (U) NEGATIVE NEGATIVE 12/27/2024 7:[address] [facility] COCAINE METABOLITES (U) NEGATIVE NEGATIVE 12/27/2024 7:[address] [facility] AMPHETAMINE (U) POSITIVE SCREEN RESULT, IF CONFIRMATION DESIRED PLEASE CONTACT LAB WITHIN ONE WEEK. (A) NEGATIVE 12/27/2024 7:[address] [facility] CANNABINOIDS SCREEN (U) NEGATIVE NEGATIVE 12/27/2024 7:[address] [facility] OPIATE SCREEN (U) POSITIVE SCREEN RESULT, IF CONFIRMATION DESIRED PLEASE CONTACT LAB WITHIN ONE WEEK. (A) NEGATIVE 12/27/2024 7:[address] [facility] BARBITURATES SCREEN (U) NEGATIVE NEGATIVE 12/27/2024 7:[address] [facility] URINE TOX COMMENT Unconfirmed screening results are to be used only for medical purposes. 12/27/2024 5:[address] [facility] CUTOFF CONCENTRATION (U) Cut-off Concentration for a positive result 12/27/2024 5:[address] [facility] Comment: Phencyclidine 25 ng/mL Benzodiazepines 200 ng/mL Cocaine 300 ng/mL Amphetamine 1000 ng/mL Cannabinoids 50 ng/mL Opiates 300 ng/mL Barbiturates 200 ng/mL URINE SPECIMEN / Unknown 12/27/2024 5:42 AM CDT us Niru Diaz DO URINE ORDERABLES Final Resu lt [facility] [address] [place] [address], [id number] * MAMMOGRAM GENERIC (11/30/2016 4:32 PM CDT) Anatomical Region Laterality Modality Other 11/30/2016 4:32 PM CDT 11/30/2016 4:32 PM CDT Narrative 11/30/2016 4:41 PM CDT [facility] ADMIT/SERVICE DATE: 11/18/16 ACCT: [id number] DISCHARGE DATE: : 1960 SEX: F ORD SITE: [facility] PT TYPE: REG CLI ORDERING MD: SHAN DUNBAR MD STUDY DATE REPORT # ORDER # EXT ORDER ID 11/18/16 [id number] ; ; [id number]; [id number]; [id number] PROC CODE: AXILNVRT PROCEDURE DESCRIPTION: US AXILLA [...] IF CLINICALLY INDICATED. EXAMINATION: BILATERAL SCREENING MAMMOGRAM [id number], [id number] COMPARISON: OUTSIDE STUDY 07/29/2011. TISSUE DENSITY: THE [...] EXAMINATION: BILATERAL DIAGNOSTIC MAMMOGRAM WITH BILATERAL ULTRASOUND. [id number], [id number] CLINICAL HISTORY: BILATERAL AXILLARY PAIN COMPARISON: NONE [...] - 01/11/2018 [facility] ADMIT/SERVICE DATE:11/18/16 ACCT: [id number] DISCHARGE DATE: : 1960 SEX: F ORD SITE: [facility] PT TYPE: REG CLI ORDERING MD:SHAN DUNBAR MD STUDY DATE REPORT # ORDER # EXT ORDER ID 11/18/16 [id number]; [id number]; [id number]; [id number]; [id number] PROC CODE: AXILNVRT PROCEDURE DESCRIPTION: US AXILLA [...] IF CLINICALLY INDICATED. EXAMINATION: BILATERAL SCREENING MAMMOGRAM [id number], [id number] COMPARISON: OUTSIDE STUDY 07/29/2011. TISSUE DENSITY: THE [...] EXAMINATION: BILATERAL DIAGNOSTIC MAMMOGRAM WITH BILATERAL ULTRASOUND. [id number], [id number] CLINICAL HISTORY: BILATERAL AXILLARY PAIN COMPARISON: NONE [...] Resul t * Colonoscopy (03/20/2009 12:00 AM MERCHANDISING INTERN) 03/20/2009 03/20/2009 Narrative [facility] TO EPIC CONVERSION - 03/20/2009 12:00 AM MERCHANDISING INTERN Documented hx of procedure Procedure Note Jaime Echevarria MD - 01/21/2018 Documented hx of procedure us Generic Conversion Md ECHEVARRIA GI PROCEDURE ORDERABLES Final Result [facility] TO EPIC CONVERSION from Last 3 Months or Most Recently Relevant to Health Maintenance Insurance [facility] [employer] Advance Directives * Full Code [...] 3:44 AM 12/27/2024 6:45 AM Care Teams Tub Wash Operator Relationship Specialty Start Date End Date Sumit Caballero MD [address] [place] [address] PCP - General INTERNAL MEDICINE 03/14/25 Thad Henry MD [address] [id number] VASCULAR SURGERY 02/28/25 Saima Hager MD [address] [place] [phone] [place] CARDIOVASCULAR DISEASE 03/14/25
--- OUTSIDE RECORDS SUMMARY | 2025-03-17 19:15 | XMS_ITS | Clinical Summary ---
Author Organization [facility] Address [address] [place] [address] Care Team Providers Care Talent Recruiter Name Role Phone Tommie Archuleta MD Primary Care Provider [phone] Source Comments [facility],non-owned Affiliates and Associated Physician Practices is amultiple site organization consisting of ambulatory clinics and hospital sitesin [place], [place], [place] and [place]. This disclosure is being madepursuant to the Care Everywhere program and may not contain all information available regarding this patient. 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
--- OUTSIDE RECORDS SUMMARY | 2025-03-17 19:15 | XMS_ITS | Clinical Summary ---
Author Organization [facility] Address [address] [place] [address] Care Team Providers Care Putty Remover Name Role Phone Saroj Solano MD Unavailable [phone] Unknown, Notinfile Primary Care Provider Unavail able Allergies Active Allergy Reactions Criticality Noted Date [...] Comments Hx Other Medical Cholecystectomy 2012; Comments: KATHY 05/06/2014 - Hx Other Medical Nose surg. 2008 .; Comments: KATHY 05/06/2014 - Hx Other Medical Rotator cuff meng rg. 2013.; Comments: KATHY 05/06/2014 - Hx Other Medical Brain surg. 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 Gender Identity Not on file Sexual Orientation Not on file Last Filed Vital Signs Vital Sign Reading Time Taken Comments Blood Pressure 181/96 05/24/2019 11:30 AM ARTIFICIAL STONE SETTER Pulse 92 05/24/2019 11:30 AM ARTIFICIAL STONE SETTER Temperature - - Respiratory Rate - - Oxygen Saturation - - Inhaled Oxygen Concentration - - Weight 78 kg (172 lb) 05/24/2019 11:30 AM ARTIFICIAL STONE SETTER Height 171.5 cm (5' 7.5) 05/24/2019 11:30 AM CS T Body Mass Index 26.54 05/24/2019 11:30 AM ARTIFICIAL STONE SETTER Plan of Treatment Not on file Insurance [facility] [facility] [facility] HMO/PPO Address: [place] [address] Care Teams Putty Remover Relationship Specialty Start Date End Date Unknown, Notinfile PCP - General 02/24/25 Saroj Solano MD Family Medicine 04/18/19
[2025-03-17] MEDS: diazePAM (*CRX) 5 MG TABLET PO (19:18)
[2025-03-17] MEDS: MECLIZINE HCL 25 MG TABLET PO (19:18)
[2025-03-17 19:24] VITALS: BP 141/58; PULSE 93
[2025-03-17 19:26] VITALS: BP 158/71; PULSE 92
[2025-03-17 19:28] VITALS: BP 141/66; PULSE 96
[2025-03-17 19:38] LABS: Add Urine Microscopic? NO; Appearance Urine Clear (Clear); Glucose Urine UA Negative (Negative); Leukocyte Esterase Ur Negative LEU/UL (Negative); Nitrate Urine Negative (Negative); Specific Grav Ur 1.020 (1.010-1.020)
--- NOTE | 2025-03-17 19:55 | PC.NURSE ---
ERP in to discuss low Hgb restults w/ pt and need for transfer to her specialist at [facility]. Pt not wanting to transfer at this time because she needs her spouse to have a vehicle.
--- NOTE | 2025-03-17 20:02 | PC.NURSE ---
Pt decided to sign AMA form after all risks/benefits were explained to pt. Pt stated she will go herself to specialist but needs to leave and can't be transferred tonight.
[2025-03-17 20:05] VITALS: BP 140/72; PULSE 85; RESP 18; O2SAT 99
== END 2025-03-17 20:05 | disposition left against medical advice (07) ==
LOC: CHSED 19:13
PROVIDERS: Emergency Provider Emergency Medicine; PCP Emergency Medicine
DX: R42 Dizziness and giddiness (principal); D64.9 Anemia, unspecified; I10 Essential (primary) hypertension; E78.5 Hyperlipidemia, unspecified; J43.9 Emphysema, unspecified; F17.210 Nicotine dependence, cigarettes, uncomplicated
CPT/HCPCS: 36415; 70450; 71045; 80053; 81003; 85025; 93005; 99284; A9270